=== PATIENT | male | born 1945 | race Caucasian/White ===

== ENCOUNTER 2022-03-22 15:36 | Inpatient (IN) | payer MEDICARE ==
--- NOTE | 2022-03-23 08:47 | Consultation ---
History of Present Illness - Reason for Consult Consult date: 03/23/22 Medical management - History of Present Illness Patient is a 76 YOM with hx of tobacco abuse, hyperlipidemia and memory loss who was brought to [facility] from outside facility for GeriPsychiatry. Per notes from OSH, he was brought in by a friend with worsening memory loss and hallucinations. His hallucinations made him become violent with inanimate objects. The patient reports "being the most caring person alive" and not "wa nting to hurt anybody, only to protect". He denies current hallucinations, SI, HI. He reports not having any medical conditions that he takes medications for currently. He is a current smoker but denies illicit drug and alcohol use. Review of systems were negative and the patient has no specific complaints at this time. Past History Past Medical History: COPD, hyperlipidemia Past Surgical History: hernia repair Social history: smoking Family history: no significant family history Medications and Allergies Allergies Allergy/AdvReac Type Severity Reaction Status Date / Time onion Allergy Unknown Unverified 03/22/22 15:49 Home Medications Medication Instructions Recorded Confirmed Last Taken Type Albuterol Sulfate [Proair 90 mcg IH Q4HR 03/23/22 03/23/22 Unknown History Digihaler] Aspirin EC [Halfprin EC] 81 mg PO QDAY 03/23/22 03/23/22 Unknown History Cholecalciferol Vit D3 [Vitamin D3 2,000 unit PO QDAY 03/23/22 03/23/22 Unknown History 1,000 UNIT TAB] Fluticasone [Flonase] 1 spray NS QDAY 03/23/22 03/23/22 Unknown History Multivit-Min/FA/Lycopen/Lutein 1 each PO DAILY 03/23/22 03/23/22 Unknown History [Abc Plus Tablet] Tiotropium [Spiriva] 18 mcg IH QDAY 03/23/22 03/23/22 Unknown History Varenicline Tartrate 0.5 mg PO DAILY 03/23/22 03/23/22 Unknown History Review of Systems Constitutional: no weight loss, no weight gain, no fever, no chills, no night sweats, no anorexia, no fatigue, no poor appetite Ears, nose, mouth and throat: no nasal congestion, no nasal discharge, no dy sphagia Cardiovascular: no chest pain, no orthopnea, no rapid/irregular heart beat, no edema, no lightheadedness, no high blood pressure Respiratory: no cough, no congestion, no wheezing Gastrointestinal: no abdominal pain, no nausea, no vomiting, no diarrhea Integumentary: deferred Neurological: memory loss, no syncope, no headaches, no change in mentation, no confusion Psychiatric: change in sleep habits, no anxiety, no insomnia, no suicidal id eation, no depression, no hopelessness, no irritability, no sadness/tearfullness Endocrine: no cold intolerance, no heat intolerance, no excessive thirst Exam - Physical Exam Narrative exam: GENERAL: Thin elderly male. Sitting in a chair, in no acute distress. HEENT: Normocephalic. Atraumatic. NECK: Supple. CHEST/LUNGS: CTAB on room air HEART/CARDIOVASCULAR: RRR. No murmur, rubs or gallops appreciated. ABDOMEN: +BS. NT/ND. SKIN: No rashes noted. NEURO: No focal motor deficit. Follows all commands. MUSCULOSKELETAL: No joint effusion EXTREMITIES: No cyanosis, clubbing or edema. PSYCH: Cooperative. Results - Labs CBC & Chem 7: 03/23/22 09:15 03/23/22 09:15 Assessment and Plan #Hyperlipidemia -lipid panel ordered, LDL: 136, TC: 206 -no BP measurement to accurately account for ASCVD risk -patient has HLD, a smoker and given age will start statin -will start atorvastatin 40mg qhs #History of COPD -stable, not in acute exacerbation -continue home inhalers -continue PRN albuterol for wheezing/SOB #tobacco dependence #tobacco cessation counseling -patient vague about how many cigarettes he smokes daily, he currently reports not smoking in a few days -nicotine patch offered, will continue chantix -smoking cessation counseling, supportive care, behavior change counseling, +15 minutes
[2022-03-23 09:44] LABS: Basophils # (Auto) 0.1 K/mm3 (0.0-0.1); Basophils % (Auto) 1.4 % (0.0-1.8); Eosinophils # (Auto) 0.3 K/mm3 (0.0-0.4); Eosinophils % (Auto) 5.5 % (0.0-4.3); Hematocrit 45.3 % (35.5-45.6); Hemoglobin 15.8 gm/dl (11.8-15.2); Lymphocytes # (Auto) 1.2 K/mm3 (1.2-5.4); Lymphocytes % (Auto) 21.5 % (13.4-35.0); Mean Corpuscular HGB Conc 35 % (32-34); Mean Corpuscular Volume 91 fl (84-94); Monocytes # (Auto) 0.4 K/mm3 (0.0-0.8); Monocytes % (Auto) 6.9 % (0.0-7.3); Red Blood Count 4.99 M/mm3 (3.65-5.03); Red Cell Distribution Width 13.2 % (13.2-15.2)
[2022-03-23 09:46] LABS: Platelet Count 94 K/mm3 (140-440)
[2022-03-23 10:06] LABS: Alanine Aminotransferase 19 units/L (7-56); Albumin 4.8 g/dL (3.9-5); BUN/Creatinine Ratio 19; Blood Urea Nitrogen 15 mg/dL (9-20); Calcium 9.5 mg/dL (8.4-10.2); Chol/HDL Ratio 3.88 %; HDL Cholesterol 53 mg/dL (40-59); Hemolysis Index 9; LDL Cholesterol,Direct 136 mg/dL (50-130)
--- NOTE | 2022-03-23 11:10 | History and Physical Report ---
GP History & Physical - History of Present Illness Date of admission: 03/22/22 Date of Examination: 03/23/22 Reason for Admission: Danger to self, Failure of Outpatient Treatment, Severe anxiety/depression History of Present Illness: HPI: Worsening memory and hallucinations. The patient was seen today. He is confused and could not be engaged in the evaluation. He asks me how did I get in his house. He is reaching for his linen and asks me if it was his dog. I ask him how was he feeling, he states again "how did you get in my house." PAST PSYCHIATRIC HISTORY: PAST MEDICAL HISTORY: None reported or document Family Psychiatric History: None reported or documented SOCIAL HISTORY REVIEW OF SYSTEMS MENTAL STATUS EXAMINATION Diagnoses: Dementia with behavioral disturbances Treatment Plan: Patient admitted for inpatient psychiatric evaluation, medication adjustment and close monitoring The patient's behavior, mood, sleep and appetite will be closely monitored. Patient enrolled in individual and group therapeutic sessions and encouraged to attend. Patient provided with a safe and structured environment. Patient's physical health needs will be addressed by the Hospitalist. Hospitalist Consulted Labs including CBC, CMP, Lipid profile and Hemoglobin A1C levels ordered for baseline reference Social Assessment will be completed and the Palliative Care Physician will work with patient and family to ensure a suitable and safe disposition Medication adjustment will be made as clinically indicated Restarted home meds Usual Wellness Sabianist/Preservation: - Start Trazodone 50 mg po QHS & 50 mg po QHS PRN between 10 PM & 2 AM for insomnia - Start Melatonin 5 mg po QHS to promote circadian rhythm The patient agreed on the treatment plan, understood the risk, benefit, alternative treatment, potential consequence of no treatment, and gave informed consent. Estimated days: 7 Legal Status: Voluntary Reaction to Hospitalization: Accepting Medications and Allergies Allergies Allergy/AdvReac Type Severity Reaction Status Date / Time onion Allergy Unknown Unverified 03/22/22 15:49 Home Medications Medication Instructions Recorded Confirmed Last Taken Type Albuterol Sulfate [Proair 90 mcg IH Q4HR 03/23/22 03/23/22 Unknown History Digihaler] Aspirin EC [Halfprin EC] 81 mg PO QDAY 03/23/22 03/23/22 Unknown History Cholecalciferol Vit D3 [Vitamin D3 2,000 unit PO QDAY 03/23/22 03/23/22 Unknown History 1,000 UNIT TAB] Fluticasone [Flonase] 1 spray NS QDAY 03/23/22 03/23/22 Unknown History Multivit-Min/FA/Lycopen/Lutein 1 each PO DAILY 03/23/22 03/23/22 Unknown History [Abc Plus Tablet] Tiotropium [Spiriva] 18 mcg IH QDAY 03/23/22 03/23/22 Unknown History Varenicline Tartrate 0.5 mg PO DAILY 03/23/22 03/23/22 Unknown History Results - Results Labs/Vitals: Laboratory Last Values WBC 5.7 K/mm3 (4.5-11.0) 03/23/22 09:15 RBC 4.99 M/mm3 (3.65-5.03) 03/23/22 09:15 Hgb 15.8 gm/dl (11.8-15.2) H 03/23/22 09:15 Hct 45.3 % (35.5-45.6) 03/23/22 09:15 MCV 91 fl (84-94) 03/23/22 09:15 MCH 32 pg (28-32) 03/23/22 09:15 MCHC 35 % (32-34) H 03/23/22 09:15 RDW 13.2 % (13.2-15.2) 03/23/22 09:15 Plt Count 94 K/mm3 (140-440) L 03/23/22 09:15 Lymph % (Auto) 21.5 % (13.4-35.0) 03/23/22 09:15 [place] % (Auto) 6.9 % (0.0-7.3) 03/23/22 09:15 Eos % (Auto) 5.5 % (0.0-4.3) H 03/23/22 09:15 Baso % (Auto) 1.4 % (0.0-1.8) 03/23/22 09:15 Lymph # (Auto) 1.2 K/mm3 (1.2-5.4) 03/23/22 09:15 [place] # (Auto) 0.4 K/mm3 (0.0-0.8) 03/23/22 09:15 Eos # (Auto) 0.3 K/mm3 (0.0-0.4) 03/23/22 09:15 Baso # (Auto) 0.1 K/mm3 (0.0-0.1) 03/23/22 09:15 Seg Neutrophils % 64.7 % (40.0-70.0) 03/23/22 09:15 Seg Neutrophils # 3.7 K/mm3 (1.8-7.7) 03/23/22 09:15 Sodium 139 mmol/L (137-145) 03/23/22 09:15 Potassium 3.7 mmol/L (3.6-5.0) 03/23/22 09:15 Chloride 100.6 mmol/L (98-107) 03/23/22 09:15 Carbon Dioxide 25 mmol/L (22-30) 03/23/22 09:15 Anion Gap 17 mmol/L 03/23/22 09:15 BUN 15 mg/dL (9-20) 03/23/22 09:15 Creatinine 0.8 mg/dL (0.8-1.3) 03/23/22 09:15 Estimated GFR > 60 ml/min 03/23/22 09:15 BUN/Creatinine Ratio 19 % 03/23/22 09:15 Glucose 112 mg/dL (75-100) H 03/23/22 09:15 Hemoglobin A1c 5.4 % (4-6) 03/23/22 09:15 Calcium 9.5 mg/dL (8.4-10.2) 03/23/22 09:15 Total Bilirubin 1.00 mg/dL (0.1-1.2) 03/23/22 09:15 AST 29 units/L (5-40) 03/23/22 09:15 ALT 19 units/L (7-56) 03/23/22 09:15 Alkaline Phosphatase 99 units/L (35-129) 03/23/22 09:15 Total Protein 6.6 g/dL (6.3-8.2) 03/23/22 09:15 Albumin 4.8 g/dL (3.9-5) 03/23/22 09:15 Albumin/Globulin Ratio 2.7 % 03/23/22 09:15 Triglycerides 92 mg/dL (2-149) 03/23/22 09:15 Cholesterol 206 mg/dL (50-199) H 03/23/22 09:15 LDL Cholesterol Direct 136 mg/dL (50-130) H 03/23/22 09:15 HDL Cholesterol 53 mg/dL (40-59) 03/23/22 09:15 Cholesterol/HDL Ratio 3.88 % 03/23/22 09:15 TSH 1.480 mlU/mL (0.270-4.200) 03/23/22 09:15 Physician Certification - Certification Statement Physician Certification Statement: This is an acknowledgement statement that SUSAN NINO is a 76 year old M who requires inpatient psychiatric admission for treatment which could reasonably be expected to improve the patient's condition for Estimated period of time patient will need to remain in the hospital: [ ] Plan for post-hospital care: [ ]
[2022-03-23] MEDS ORDERED: VARENICLINE TARTRATE 0.5 MG PO SCH (11:15)
[2022-03-23] MEDS ORDERED: LUTEIN PO SCH (11:15)
[2022-03-23] MEDS ORDERED: [UNRECOGNIZED DRUG - OTHER] PO SCH (11:15)
[2022-03-23] MEDS ORDERED: LYCOPEN PO SCH (11:15)
[2022-03-23] MEDS ORDERED: NON-FORMULARY EACH (Albuterol Sulfate [Proair Digihaler] 90 MCG Aer.Pw.Bas) IH SCH (11:15)
[2022-03-23] MEDS ORDERED: MULTIVIT MIN PO SCH (11:15)
[2022-03-23] MEDS ORDERED: ALBUTEROL 2.5 MG/3 ML NEBU IH PRN (12:00)
[2022-03-23] MEDS: CHOLECALCIFEROL (VIT D3) 1000 UNIT (25 mcg) TAB PO SCH (13:41)
[2022-03-23] MEDS: ASPIRIN EC 81 MG TAB PO SCH (13:41)
[2022-03-23] MEDS: TIOTROPIUM 18 MCG CAP INHALATION IH SCH (13:41)
[2022-03-23] MEDS: FLUTICASONE PROPIONATE NASAL SPRAY 16 GM NS SCH (13:41)
[2022-03-23] MEDS: MULTIVITAMINS,THER W-MINERALS TAB PO SCH (13:41)
[2022-03-23] MEDS: ALBUTEROL 2.5 MG/3 ML NEBU IH SCH ×2 (17:38→22:24)
[2022-03-24] MEDS: ALBUTEROL 2.5 MG/3 ML NEBU IH SCH ×7 (00:26→20:10)
--- NOTE | 2022-03-24 08:58 | Progress Note ---
Subjective Date of service: 03/24/22 Principal diagnosis: Delusional Disorder Subjective Comment: The patient was seen today. He is confused with poor insight. He says he slept up and down all night. He thinks he's at home in his bed. I asked the patient how he was feeling, he replies, "where am I? Am I at home?" He is reaching for things not there. And asks was his dog in the room. Will start low dose Olanzapine to treat delusions and hallucinations. REVIEW OF SYSTEMS MENTAL STATUS EXAMINATION Diagnoses: Dementia with behavioral disturbances Treatment Plan: Patient admitted for inpatient psychiatric evaluation, medication adjustment and close monitoring The patient's behavior, mood, sleep and appetite will be closely monitored. Patient enrolled in individual and group therapeutic sessions and encouraged to attend. Patient provided with a safe and structured environment. Patient's physical health needs will be addressed by the Hospitalist. Hospitalist Consulted Labs including CBC, CMP, Lipid profile and Hemoglobin A1C levels ordered for baseline reference Social Assessment will be completed and the Dobby Looms Pegger will work with patient and family to ensure a suitable and safe disposition Medication adjustment will be made as clinically indicated Olanzapine 2.5mg po daily Usual Wellness [facility]/Preservation: - Start Trazodone 50 mg po QHS & 50 mg po QHS PRN between 10 PM & 2 AM for insomnia - Start Melatonin 5 mg po QHS to promote circadian rhythm The patient agreed on the treatment plan, understood the risk, benefit, alt ernative treatment, potential consequence of no treatment, and gave informed consent. Estimated days: 7 Medications and Allergies Allergies Allergy/AdvReac Type Severity Reaction Status Date / Time onion Allergy Unknown Unverified 03/22/22 15:49 Home Medications Medication Instructions Recorded Confirmed Last Taken Type Albuterol Sulfate [Proair 90 mcg IH Q4HR 03/23/22 03/23/22 Unknown History Digihaler] Aspirin EC [Halfprin EC] 81 mg PO QDAY 03/23/22 03/23/22 Unknown History Cholecalciferol Vit D3 [Vitamin D3 2,000 unit PO QDAY 03/23/22 03/23/22 Unknown History 1,000 UNIT TAB] Fluticasone [Flonase] 1 spray NS QDAY 03/23/22 03/23/22 Unknown History Multivit-Min/FA/Lycopen/Lutein 1 each PO DAILY 03/23/22 03/23/22 Unknown History [Abc Plus Tablet] Tiotropium [Spiriva] 18 mcg IH QDAY 03/23/22 03/23/22 Unknown History Varenicline Tartrate 0.5 mg PO DAILY 03/23/22 03/23/22 Unknown History Active Meds: Active Medications Albuterol (Albuterol 2.5 Mg/3 Ml Nebu) 2.5 mg IH Q4HRT [facility] Last Admin: 03/23/22 22:24 Dose: Not Given Albuterol (Albuterol 2.5 Mg/3 Ml Nebu) 2.5 mg IH Q4HRT PRN PRN Reason: Shortness Of Breath Aspirin (Aspirin Ec 81 Mg Tab) 81 mg PO QDAY [facility] Last Admin: 03/23/22 13:41 Dose: Not Given Atorvastatin Calcium (Atorvastatin 40 Mg Tab) 40 mg PO QHS [facility] Last Admin: 03/23/22 23:23 Dose: Not Given Cholecalciferol (Cholecalciferol (Vit D3) 1000 Unit (25 Mcg) Tab) 2,000 unit PO QDAY [facility] Last Admin: 03/23/22 13:41 Dose: Not Given Fluticasone Propionate (Fluticasone Propionate Nasal [place] 16 Gm) 50 mcg NS QDAY [facility] Last Admin: 03/23/22 13:41 Dose: Not Given Miscellaneous Medication (Varenicline Tartrate [Varenicline Tartrate]) 0.5 mg PO DAILY [facility] Multivitamins/Minerals (Multivitamins,Ther W-Minerals Tab) 1 each PO QDAY [facility] Last Admin: 03/23/22 13:41 Dose: Not Given Tiotropium [place] (Tiotropium 18 Mcg Cap Inhalation) 1 puff IH QDAY [facility] Last Admin: 03/23/22 13:41 Dose: Not Given Results - Results Labs/Vitals: Laboratory Last Values WBC 5.7 K/mm3 (4.5-11.0) 03/23/22 09:15 RBC 4.99 M/mm3 (3.65-5.03) 03/23/22 09:15 Hgb 15.8 gm/dl (11.8-15.2) H 03/23/22 09:15 Hct 45.3 % (35.5-45.6) 03/23/22 09:15 MCV 91 fl (84-94) 03/23/22 09:15 MCH 32 pg (28-32) 03/23/22 09:15 MCHC 35 % (32-34) H 03/23/22 09:15 RDW 13.2 % (13.2-15.2) 03/23/22 09:15 Plt Count 94 K/mm3 (140-440) L 03/23/22 09:15 Lymph % (Auto) 21.5 % (13.4-35.0) 03/23/22 09:15 [place] % (Auto) 6.9 % (0.0-7.3) 03/23/22 09:15 Eos % (Auto) 5.5 % (0.0-4.3) H 03/23/22 09:15 Baso % (Auto) 1.4 % (0.0-1.8) 03/23/22 09:15 Lymph # (Auto) 1.2 K/mm3 (1.2-5.4) 03/23/22 09:15 [place] # (Auto) 0.4 K/mm3 (0.0-0.8) 03/23/22 09:15 Eos # (Auto) 0.3 K/mm3 (0.0-0.4) 03/23/22 09:15 Baso # (Auto) 0.1 K/mm3 (0.0-0.1) 03/23/22 09:15 Seg Neutrophils % 64.7 % (40.0-70.0) 03/23/22 09:15 Seg Neutrophils # 3.7 K/mm3 (1.8-7.7) 03/23/22 09:15 Sodium 139 mmol/L (137-145) 03/23/22 09:15 Potassium 3.7 mmol/L (3.6-5.0) 03/23/22 09:15 Chloride 100.6 mmol/L (98-107) 03/23/22 09:15 Carbon Dioxide 25 mmol/L (22-30) 03/23/22 09:15 Anion Gap 17 mmol/L 03/23/22 09:15 BUN 15 mg/dL (9-20) 03/23/22 09:15 Creatinine 0.8 mg/dL (0.8-1.3) 03/23/22 09:15 Estimated GFR > 60 ml/min 03/23/22 09:15 BUN/Creatinine Ratio 19 % 03/23/22 09:15 Glucose 112 mg/dL (75-100) H 03/23/22 09:15 Hemoglobin A1c 5.4 % (4-6) 03/23/22 09:15 Calcium 9.5 mg/dL (8.4-10.2) 03/23/22 09:15 Total Bilirubin 1.00 mg/dL (0.1-1.2) 03/23/22 09:15 AST 29 units/L (5-40) 03/23/22 09:15 ALT 19 units/L (7-56) 03/23/22 09:15 Alkaline Phosphatase 99 units/L (35-129) 03/23/22 09:15 Total Protein 6.6 g/dL (6.3-8.2) 03/23/22 09:15 Albumin 4.8 g/dL (3.9-5) 03/23/22 09:15 Albumin/Globulin Ratio 2.7 % 03/23/22 09:15 Triglycerides 92 mg/dL (2-149) 03/23/22 09:15 Cholesterol 206 mg/dL (50-199) H 03/23/22 09:15 LDL Cholesterol Direct 136 mg/dL (50-130) H 03/23/22 09:15 HDL Cholesterol 53 mg/dL (40-59) 03/23/22 09:15 Cholesterol/HDL Ratio 3.88 % 03/23/22 09:15 TSH 1.480 mlU/mL (0.270-4.200) 03/23/22 09:15 Last Vital Signs Temp 97.5 F L 03/23/22 22:00 Pulse 94 H 03/23/22 22:00 Resp 18 03/23/22 22:00 BP 128/78 03/23/22 22:00 Pulse Ox 99 03/23/22 22:00
--- NOTE | 2022-03-24 09:37 | Progress Note ---
Assessment and Plan Assessment and plan: #Hyperlipidemia -lipid panel ordered, LDL: 136, TC: 206 -lifetime ASCVD risk 25.5% -continue atorvastatin 40mg qhs #History of COPD -stable, not in acute exacerbation -continue home inhalers -continue PRN albuterol for wheezing/SOB #tobacco dependence #tobacco cessation counseling -nicotine patch offered patient declined, will continue chantix -smoking cessation counseling, supportive care, behavior change counseling, +15 minutes History Interval history: No acute events overnight. Patient reports sleeping well but is cold this morning. Patient not aware that he has a history of hyperlipidemia, we talked about starting a statin and he agreed. He has no complaints at this time. Hospitalist Physical - Physical exam Narrative exam: GENERAL: Thin elderly male. Sitting in a chair, in no acute distress. HEENT: Normocephalic. Atraumatic. CHEST/LUNGS: CTAB on room air HEART/CARDIOVASCULAR: RRR. No murmur, rubs or gallops appreciated. ABDOMEN: +BS. NT/ND. NEURO: No focal motor deficit. Follows all commands. EXTREMITIES: No cyanosis, clubbing or edema. PSYCH: Cooperative. - Constitutional Vitals: Temp Pulse Resp BP Pulse Ox 97.5 F L 94 H 18 128/78 99 03/23/22 22:00 03/23/22 22:00 03/23/22 22:00 03/23/22 22:00 03/23/22 22:00 Results - Labs CBC & Chem 7: 03/23/22 09:15 03/23/22 09:15 Labs: Laboratory Last Values WBC 5.7 K/mm3 (4.5-11.0) 03/23/22 09:15 RBC 4.99 M/mm3 (3.65-5.03) 03/23/22 09:15 Hgb 15.8 gm/dl (11.8-15.2) H 03/23/22 09:15 Hct 45.3 % (35.5-45.6) 03/23/22 09:15 MCV 91 fl (84-94) 03/23/22 09:15 MCH 32 pg (28-32) 03/23/22 09:15 MCHC 35 % (32-34) H 03/23/22 09:15 RDW 13.2 % (13.2-15.2) 03/23/22 09:15 Plt Count 94 K/mm3 (140-440) L 03/23/22 09:15 Lymph % (Auto) 21.5 % (13.4-35.0) 03/23/22 09:15 [place] % (Auto) 6.9 % (0.0-7.3) 03/23/22 09:15 Eos % (Auto) 5.5 % (0.0-4.3) H 03/23/22 09:15 Baso % (Auto) 1.4 % (0.0-1.8) 03/23/22 09:15 Lymph # (Auto) 1.2 K/mm3 (1.2-5.4) 03/23/22 09:15 [place] # (Auto) 0.4 K/mm3 (0.0-0.8) 03/23/22 09:15 Eos # (Auto) 0.3 K/mm3 (0.0-0.4) 03/23/22 09:15 Baso # (Auto) 0.1 K/mm3 (0.0-0.1) 03/23/22 09:15 Seg Neutrophils % 64.7 % (40.0-70.0) 03/23/22 09:15 Seg Neutrophils # 3.7 K/mm3 (1.8-7.7) 03/23/22 09:15 Sodium 139 mmol/L (137-145) 03/23/22 09:15 Potassium 3.7 mmol/L (3.6-5.0) 03/23/22 09:15 Chloride 100.6 mmol/L (98-107) 03/23/22 09:15 Carbon Dioxide 25 mmol/L (22-30) 03/23/22 09:15 Anion Gap 17 mmol/L 03/23/22 09:15 BUN 15 mg/dL (9-20) 03/23/22 09:15 Creatinine 0.8 mg/dL (0.8-1.3) 03/23/22 09:15 Estimated GFR > 60 ml/min 03/23/22 09:15 BUN/Creatinine Ratio 19 % 03/23/22 09:15 Glucose 112 mg/dL (75-100) H 03/23/22 09:15 Hemoglobin A1c 5.4 % (4-6) 03/23/22 09:15 Calcium 9.5 mg/dL (8.4-10.2) 03/23/22 09:15 Total Bilirubin 1.00 mg/dL (0.1-1.2) 03/23/22 09:15 AST 29 units/L (5-40) 03/23/22 09:15 ALT 19 units/L (7-56) 03/23/22 09:15 Alkaline Phosphatase 99 units/L (35-129) 03/23/22 09:15 Total Protein 6.6 g/dL (6.3-8.2) 03/23/22 09:15 Albumin 4.8 g/dL (3.9-5) 03/23/22 09:15 Albumin/Globulin Ratio 2.7 % 03/23/22 09:15 Triglycerides 92 mg/dL (2-149) 03/23/22 09:15 Cholesterol 206 mg/dL (50-199) H 03/23/22 09:15 LDL Cholesterol Direct 136 mg/dL (50-130) H 03/23/22 09:15 HDL Cholesterol 53 mg/dL (40-59) 03/23/22 09:15 Cholesterol/HDL Ratio 3.88 % 03/23/22 09:15 TSH 1.480 mlU/mL (0.270-4.200) 03/23/22 09:15 Kaufman/IV: Voiding Method Toilet Active Medications - Current Medications Current Medications: Generic Name Dose Route Start Last Admin Trade Name Freq PRN Reason Stop Dose Admin Albuterol 2.5 mg 03/23/22 16:00 03/24/22 04:27 Albuterol 2.5 Mg/3 Ml Nebu IH Not Given Q4HRT [facility] Albuterol 2.5 mg 03/23/22 12:00 Albuterol 2.5 Mg/3 Ml Nebu IH Q4HRT PRN Shortness Of Breath Aspirin 81 mg 03/23/22 12:00 03/23/22 13:41 Aspirin Ec 81 Mg Tab PO Not Given QDAY [facility] Atorvastatin Calcium 40 mg 03/23/22 22:00 03/23/22 23:23 Atorvastatin 40 Mg Tab PO Not Given QHS [facility] Cholecalciferol 2,000 unit 03/23/22 12:00 03/23/22 13:41 Cholecalciferol (Vit D3) 1000 Unit (25 Mcg) Tab PO Not Given QDAY [facility] Fluticasone Propionate 50 mcg 03/23/22 12:00 03/23/22 13:41 Fluticasone Propionate Nasal [place] 16 Gm NS Not Given QDAY [facility] Miscellaneous Medication 0.5 mg 03/23/22 11:15 Varenicline Tartrate [Varenicline Tartrate] PO DAILY [facility] Multivitamins/Minerals 1 each 03/23/22 12:00 03/23/22 13:41 Multivitamins,Ther W-Minerals Tab PO Not Given QDAY [facility] Olanzapine 2.5 mg 03/24/22 10:00 Olanzapine 2.5 Mg Tab PO QDAY [facility] Tiotropium [place] 1 puff 03/23/22 12:00 03/23/22 13:41 Tiotropium 18 Mcg Cap Inhalation IH Not Given QDAY [facility] Nutrition/Malnutrition Assess - Dietary Evaluation Nutrition/Malnutrition Findings: Nutrition Notes Start: 03/23/22 14:03 Freq: Status: Active Protocol: Document 03/23/22 14:03 FARIBA (Rec: 03/23/22 14:19 FARIBA [id number]) Nutrition Notes Need for Assessment generated from: Low BMI Initial or Follow up Assessment Current Diagnosis Hyperlipidemia Other Pertinent Diagnosis Dementia w/Behavioral Disturbance. Current Diet Regular Diet (since B 03/23). Labs/Tests 03/23: Glu 112, HbA1c 5.4. Pertinent Medications 03/23: Vit D3, Multivitamins, others nutritionally unremarkable. 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 Weight Status Underweight Subjective/Other Information RD consult for Low BMI assessment. No reports available of Pt's PO intake of meals at the time , and RN states that Pt refused his meals, according to ADL notes. Pt's Low BMI seems to correspond to a natural body composition, and not related to a sudden loss of body weight nor chronic malnutrition, since no signs of concern were mentioned in the Physical Assessment History or the Progress notes. Percent of energy/protein needs met: Prescribed Regular Diet provides for energy/protein needs (2,289 Kcal/89 g) during LOS. Burn Absent Trauma Absent GI Symptoms None Food Allergy Yes Skin Integrity/Comment Assessment WNL. 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 No Is Patient Ambulatory and/or Out of Bed Yes REE-([facility]-ambulatory/OOB) [ 1536.210 [id number]] Kcal/Kg value to use for calculation 33 Approximate Energy Requirements Using 1647 kcal/Kg Calculation Used for Recommendations Kcal/kg Additional Notes Protein: 1-1.2 g/Kg IBW; 65-78 g/day. Fluids: 1 ml/Kcal, or as per MD. Nutrition Intervention Change Diet Order: Continue Regular Diet. Revisit per MD consult or patient Sign Off request: Additional Comments Continue monitoring food tolerance, %PO intake of meals , and BM.
[2022-03-24] MEDS: CHOLECALCIFEROL (VIT D3) 1000 UNIT (25 mcg) TAB PO SCH (09:49)
[2022-03-24] MEDS: ASPIRIN EC 81 MG TAB PO SCH (09:49)
[2022-03-24] MEDS: MULTIVITAMINS,THER W-MINERALS TAB PO SCH (09:49)
[2022-03-24] MEDS: FLUTICASONE PROPIONATE NASAL SPRAY 16 GM NS SCH (11:24)
[2022-03-24] MEDS: TIOTROPIUM 18 MCG CAP INHALATION IH SCH (11:47)
--- NOTE | 2022-03-25 06:59 | Event Note ---
Date: 03/25/22 Patient is medically stable. Thank you for the consult. We will sign off at this time. Please call with any questions or concerns.
[2022-03-25] MEDS: TIOTROPIUM 18 MCG CAP INHALATION IH SCH ×2 (08:57→09:19)
[2022-03-25] MEDS: ALBUTEROL 2.5 MG/3 ML NEBU IH SCH ×2 (08:57→09:20)
--- NOTE | 2022-03-25 10:07 | Progress Note ---
Subjective Date of service: 03/25/22 Principal diagnosis: Delusional Disorder Subjective Comment: 03/25:The patient was seen ion the hallway. The patient seems confused but states he is doing ok. He states mood is ok and sleep was fair. Unable to assess SI/HI/AVHs. 03/24:The patient was seen today. He is confused with poor insight. He says he slept up and down all night. He thinks he's at home in his bed. I asked the patient how he was feeling, he replies, "where am I? Am I at home?" He is reaching for things not there. And asks was his dog in the room. Will start low dose Olanzapine to treat delusions and hallucinations. REVIEW OF SYSTEMS MENTAL STATUS EXAMINATION Diagnoses: Dementia with behavioral disturbances Treatment Plan: Patient admitted for inpatient psychiatric evaluation, medication adjustment and close monitoring The patient's behavior, mood, sleep and appetite will be closely monitored. Patient enrolled in individual and group therapeutic sessions and encouraged to attend. Patient provided with a safe and structured environment. Patient's physical health needs will be addressed by the Hospitalist. Hospitalist Consulted Labs including CBC, CMP, Lipid profile and Hemoglobin A1C levels ordered for baseline reference Social Assessment will be completed and the Shaft Mechanic will work with patient and family to ensure a suitable and safe disposition Medication adjustment will be made as clinically indicated Olanzapine 2.5mg po daily Usual Wellness Confucianist/Preservation: - Start Trazodone 50 mg po QHS & 50 mg po QHS PRN between 10 PM & 2 AM for insomnia - Start Melatonin 5 mg po QHS to promote circadian rhythm The patient agreed on the treatment plan, understood the risk, benefit, alte rnative treatment, potential consequence of no treatment, and gave informed consent. Estimated days: 7 Medications and Allergies Medications and Allergies Allergies Allergy/AdvReac Type Severity Reaction Status Date / Time onion Allergy Unknown Unverified 03/22/22 15:49 Home Medications Medication Instructions Recorded Confirmed Last Taken Type Albuterol Sulfate [Proair 90 mcg IH Q4HR 03/23/22 03/23/22 Unknown History Digihaler] Aspirin EC [Halfprin EC] 81 mg PO QDAY 03/23/22 03/23/22 Unknown History Cholecalciferol Vit D3 [Vitamin D3 2,000 unit PO QDAY 03/23/22 03/23/22 Unknown History 1,000 UNIT TAB] Fluticasone [Flonase] 1 spray NS QDAY 03/23/22 03/23/22 Unknown History Multivit-Min/FA/Lycopen/Lutein 1 each PO DAILY 03/23/22 03/23/22 Unknown History [Abc Plus Tablet] Tiotropium [Spiriva] 18 mcg IH QDAY 03/23/22 03/23/22 Unknown History Varenicline Tartrate 0.5 mg PO DAILY 03/23/22 03/23/22 Unknown History Active Meds: Active Medications Albuterol (Albuterol 2.5 Mg/3 Ml Nebu) 2.5 mg IH BIDRT [facility] Last Admin: 03/25/22 08:57 Dose: 2.5 mg Aspirin (Aspirin Ec 81 Mg Tab) 81 mg PO QDAY [facility] Last Admin: 03/24/22 09:49 Dose: 81 mg Atorvastatin Calcium (Atorvastatin 40 Mg Tab) 40 mg PO QHS [facility] Last Admin: 03/24/22 21:27 Dose: 40 mg Cholecalciferol (Cholecalciferol (Vit D3) 1000 Unit (25 Mcg) Tab) 2,000 unit PO QDAY [facility] Last Admin: 03/24/22 09:49 Dose: 2,000 unit Fluticasone Propionate (Fluticasone Propionate Nasal [place] 16 Gm) 50 mcg NS QDAY [facility] Last Admin: 03/24/22 11:24 Dose: Not Given Miscellaneous Medication (Varenicline Tartrate [Varenicline Tartrate]) 0.5 mg PO DAILY [facility] Multivitamins/Minerals (Multivitamins,Ther W-Minerals Tab) 1 each PO QDAY [facility] Last Admin: 03/24/22 09:49 Dose: 1 each Olanzapine (Olanzapine 2.5 Mg Tab) 2.5 mg PO QDAY [facility] Last Admin: 03/24/22 09:49 Dose: 2.5 mg Tiotropium [place] (Tiotropium 18 Mcg Cap Inhalation) 1 puff IH QDAY [facility] Last Admin: 03/25/22 08:57 Dose: 1 puff Results - Results Labs/Vitals: Laboratory Last Values WBC 5.7 K/mm3 (4.5-11.0) 03/23/22 09:15 RBC 4.99 M/mm3 (3.65-5.03) 03/23/22 09:15 Hgb 15.8 gm/dl (11.8-15.2) H 03/23/22 09:15 Hct 45.3 % (35.5-45.6) 03/23/22 09:15 MCV 91 fl (84-94) 03/23/22 09:15 MCH 32 pg (28-32) 03/23/22 09:15 MCHC 35 % (32-34) H 03/23/22 09:15 RDW 13.2 % (13.2-15.2) 03/23/22 09:15 Plt Count 94 K/mm3 (140-440) L 03/23/22 09:15 Lymph % (Auto) 21.5 % (13.4-35.0) 03/23/22 09:15 [place] % (Auto) 6.9 % (0.0-7.3) 03/23/22 09:15 Eos % (Auto) 5.5 % (0.0-4.3) H 03/23/22 09:15 Baso % (Auto) 1.4 % (0.0-1.8) 03/23/22 09:15 Lymph # (Auto) 1.2 K/mm3 (1.2-5.4) 03/23/22 09:15 [place] # (Auto) 0.4 K/mm3 (0.0-0.8) 03/23/22 09:15 Eos # (Auto) 0.3 K/mm3 (0.0-0.4) 03/23/22 09:15 Baso # (Auto) 0.1 K/mm3 (0.0-0.1) 03/23/22 09:15 Seg Neutrophils % 64.7 % (40.0-70.0) 03/23/22 09:15 Seg Neutrophils # 3.7 K/mm3 (1.8-7.7) 03/23/22 09:15 Sodium 139 mmol/L (137-145) 03/23/22 09:15 Potassium 3.7 mmol/L (3.6-5.0) 03/23/22 09:15 Chloride 100.6 mmol/L (98-107) 03/23/22 09:15 Carbon Dioxide 25 mmol/L (22-30) 03/23/22 09:15 Anion Gap 17 mmol/L 03/23/22 09:15 BUN 15 mg/dL (9-20) 03/23/22 09:15 Creatinine 0.8 mg/dL (0.8-1.3) 03/23/22 09:15 Estimated GFR > 60 ml/min 03/23/22 09:15 BUN/Creatinine Ratio 19 % 03/23/22 09:15 Glucose 112 mg/dL (75-100) H 03/23/22 09:15 Hemoglobin A1c 5.4 % (4-6) 03/23/22 09:15 Calcium 9.5 mg/dL (8.4-10.2) 03/23/22 09:15 Total Bilirubin 1.00 mg/dL (0.1-1.2) 03/23/22 09:15 AST 29 units/L (5-40) 03/23/22 09:15 ALT 19 units/L (7-56) 03/23/22 09:15 Alkaline Phosphatase 99 units/L (35-129) 03/23/22 09:15 Total Protein 6.6 g/dL (6.3-8.2) 03/23/22 09:15 Albumin 4.8 g/dL (3.9-5) 03/23/22 09:15 Albumin/Globulin Ratio 2.7 % 03/23/22 09:15 Triglycerides 92 mg/dL (2-149) 03/23/22 09:15 Cholesterol 206 mg/dL (50-199) H 03/23/22 09:15 LDL Cholesterol Direct 136 mg/dL (50-130) H 03/23/22 09:15 HDL Cholesterol 53 mg/dL (40-59) 03/23/22 09:15 Cholesterol/HDL Ratio 3.88 % 03/23/22 09:15 TSH 1.480 mlU/mL (0.270-4.200) 03/23/22 09:15 Last Vital Signs Temp 97.9 F 03/24/22 19:45 Pulse 88 03/25/22 09:48 Resp 18 03/25/22 09:48 BP 123/69 03/24/22 19:45 Pulse Ox 97 03/24/22 19:45
[2022-03-25] MEDS: FLUTICASONE PROPIONATE NASAL SPRAY 16 GM NS SCH ×2 (10:46→10:52)
[2022-03-25] MEDS: ASPIRIN EC 81 MG TAB PO SCH ×2 (10:46→10:54)
[2022-03-25] MEDS: MULTIVITAMINS,THER W-MINERALS TAB PO SCH ×2 (10:47→10:54)
[2022-03-25] MEDS: CHOLECALCIFEROL (VIT D3) 1000 UNIT (25 mcg) TAB PO SCH ×2 (10:47→10:54)
[2022-03-26] MEDS: ALBUTEROL 2.5 MG/3 ML NEBU IH SCH (09:21)
--- NOTE | 2022-03-26 09:48 | Progress Note ---
Subjective Date of service: 03/26/22 Principal diagnosis: Delusional Disorder Subjective Comment: 03/26:The patient was seen today. He continues to be circumstantial. He states sleep is good. he denies any current suicidal/homicidal ideation. Increase Zyprexa to 2.5mg po BID. 03/25:The patient was seen on the hallway. The patient seems confused but states he is doing ok. He states mood is ok and sleep was fair. Unable to assess SI/HI/AVHs. 03/24:The patient was seen today. He is confused with poor insight. He says he slept up and down all night. He thinks he's at home in his bed. I asked the patient how he was feeling, he replies, "where am I? Am I at home?" He is reaching for things not there. And asks was his dog in the room. Will start low dose Olanzapine to treat delusions and hallucinations. REVIEW OF SYSTEMS MENTAL STATUS EXAMINATION Diagnoses: Dementia with behavioral disturbances Treatment Plan: Patient admitted for inpatient psychiatric evaluation, medication adjustment and close monitoring The patient's behavior, mood, sleep and appetite will be closely monitored. Patient enrolled in individual and group therapeutic sessions and encouraged to attend. Patient provided with a safe and structured environment. Patient's physical health needs will be addressed by the Hospitalist. Hospitalist Consulted Labs including CBC, CMP, Lipid profile and Hemoglobin A1C levels ordered for baseline reference Social Assessment will be completed and the Hygiene Coordinator will work with patient and family to ensure a suitable and safe disposition Medication adjustment will be made as clinically indicated Start Olanzapine 2.5mg po BID Usual Wellness Worship/Preservation: - Start Trazodone 50 mg po QHS & 50 mg po QHS PRN between 10 PM & 2 AM for insomnia - Start Melatonin 5 mg po QHS to promote circadian rhythm The patient agreed on the treatment plan, understood the risk, benefit, alternative treatment, potential consequence of no treatment, and gave informed consent. Estimated days: 7 Medications and Allergies Medications and Allergies Allergies Allergy/AdvReac Type Severity Reaction Status Date / Time onion Allergy Unknown Unverified 03/22/22 15:49 Home Medications Medication Instructions Recorded Confirmed Last Taken Type Albuterol Sulfate [Proair 90 mcg IH Q4HR 03/23/22 03/23/22 Unknown History Digihaler] Aspirin EC [Halfprin EC] 81 mg PO QDAY 03/23/22 03/23/22 Unknown History Cholecalciferol Vit D3 [Vitamin D3 2,000 unit PO QDAY 03/23/22 03/23/22 Unknown History 1,000 UNIT TAB] Fluticasone [Flonase] 1 spray NS QDAY 03/23/22 03/23/22 Unknown History Multivit-Min/FA/Lycopen/Lutein 1 each PO DAILY 03/23/22 03/23/22 Unknown History [Abc Plus Tablet] Tiotropium [Spiriva] 18 mcg IH QDAY 03/23/22 03/23/22 Unknown History Varenicline Tartrate 0.5 mg PO DAILY 03/23/22 03/23/22 Unknown History Active Meds: Active Medications Albuterol (Albuterol 2.5 Mg/3 Ml Nebu) 2.5 mg IH BIDRT [facility] Last Admin: 03/26/22 09:21 Dose: 2.5 mg Aspirin (Aspirin Ec 81 Mg Tab) 81 mg PO QDAY [facility] Last Admin: 03/25/22 10:54 Dose: Not Given Atorvastatin Calcium (Atorvastatin 40 Mg Tab) 40 mg PO QHS [facility] Last Admin: 03/25/22 21:20 Dose: 40 mg Cholecalciferol (Cholecalciferol (Vit D3) 1000 Unit (25 Mcg) Tab) 2,000 unit PO QDAY [facility] Last Admin: 03/25/22 10:54 Dose: Not Given Fluticasone Propionate (Fluticasone Propionate Nasal [place] 16 Gm) 50 mcg NS QDAY [facility] Last Admin: 03/25/22 10:52 Dose: Not Given Miscellaneous Medication (Varenicline Tartrate [Varenicline Tartrate]) 0.5 mg PO DAILY [facility] Multivitamins/Minerals (Multivitamins,Ther W-Minerals Tab) 1 each PO QDAY [facility] Last Admin: 03/25/22 10:54 Dose: Not Given Olanzapine (Olanzapine 2.5 Mg Tab) 2.5 mg PO QDAY [facility] Last Admin: 03/25/22 10:54 Dose: Not Given Tiotropium [place] (Tiotropium 18 Mcg Cap Inhalation) 1 puff IH QDAY [facility] Last Admin: 03/25/22 09:19 Dose: 1 puff Results - Results Labs/Vitals: Laboratory Last Values WBC 5.7 K/mm3 (4.5-11.0) 03/23/22 09:15 RBC 4.99 M/mm3 (3.65-5.03) 03/23/22 09:15 Hgb 15.8 gm/dl (11.8-15.2) H 03/23/22 09:15 Hct 45.3 % (35.5-45.6) 03/23/22 09:15 MCV 91 fl (84-94) 03/23/22 09:15 MCH 32 pg (28-32) 03/23/22 09:15 MCHC 35 % (32-34) H 03/23/22 09:15 RDW 13.2 % (13.2-15.2) 03/23/22 09:15 Plt Count 94 K/mm3 (140-440) L 03/23/22 09:15 Lymph % (Auto) 21.5 % (13.4-35.0) 03/23/22 09:15 [place] % (Auto) 6.9 % (0.0-7.3) 03/23/22 09:15 Eos % (Auto) 5.5 % (0.0-4.3) H 03/23/22 09:15 Baso % (Auto) 1.4 % (0.0-1.8) 03/23/22 09:15 Lymph # (Auto) 1.2 K/mm3 (1.2-5.4) 03/23/22 09:15 [place] # (Auto) 0.4 K/mm3 (0.0-0.8) 03/23/22 09:15 Eos # (Auto) 0.3 K/mm3 (0.0-0.4) 03/23/22 09:15 Baso # (Auto) 0.1 K/mm3 (0.0-0.1) 03/23/22 09:15 Seg Neutrophils % 64.7 % (40.0-70.0) 03/23/22 09:15 Seg Neutrophils # 3.7 K/mm3 (1.8-7.7) 03/23/22 09:15 Sodium 139 mmol/L (137-145) 03/23/22 09:15 Potassium 3.7 mmol/L (3.6-5.0) 03/23/22 09:15 Chloride 100.6 mmol/L (98-107) 03/23/22 09:15 Carbon Dioxide 25 mmol/L (22-30) 03/23/22 09:15 Anion Gap 17 mmol/L 03/23/22 09:15 BUN 15 mg/dL (9-20) 03/23/22 09:15 Creatinine 0.8 mg/dL (0.8-1.3) 03/23/22 09:15 Estimated GFR > 60 ml/min 03/23/22 09:15 BUN/Creatinine Ratio 19 % 03/23/22 09:15 Glucose 112 mg/dL (75-100) H 03/23/22 09:15 Hemoglobin A1c 5.4 % (4-6) 03/23/22 09:15 Calcium 9.5 mg/dL (8.4-10.2) 03/23/22 09:15 Total Bilirubin 1.00 mg/dL (0.1-1.2) 03/23/22 09:15 AST 29 units/L (5-40) 03/23/22 09:15 ALT 19 units/L (7-56) 03/23/22 09:15 Alkaline Phosphatase 99 units/L (35-129) 03/23/22 09:15 Total Protein 6.6 g/dL (6.3-8.2) 03/23/22 09:15 Albumin 4.8 g/dL (3.9-5) 03/23/22 09:15 Albumin/Globulin Ratio 2.7 % 03/23/22 09:15 Triglycerides 92 mg/dL (2-149) 03/23/22 09:15 Cholesterol 206 mg/dL (50-199) H 03/23/22 09:15 LDL Cholesterol Direct 136 mg/dL (50-130) H 03/23/22 09:15 HDL Cholesterol 53 mg/dL (40-59) 03/23/22 09:15 Cholesterol/HDL Ratio 3.88 % 03/23/22 09:15 TSH 1.480 mlU/mL (0.270-4.200) 03/23/22 09:15 Last Vital Signs Temp 98.8 F 03/25/22 20:01 Pulse 72 03/25/22 20:01 Resp 17 03/25/22 20:01 BP 131/68 03/25/22 20:01 Pulse Ox 97 03/25/22 20:01
[2022-03-26] MEDS: FLUTICASONE PROPIONATE NASAL SPRAY 16 GM NS SCH ×2 (11:09→11:21)
[2022-03-26] MEDS: ASPIRIN EC 81 MG TAB PO SCH ×2 (11:10→11:21)
[2022-03-26] MEDS: CHOLECALCIFEROL (VIT D3) 1000 UNIT (25 mcg) TAB PO SCH (11:10)
[2022-03-26] MEDS: MULTIVITAMINS,THER W-MINERALS TAB PO SCH ×2 (11:10→11:20)
[2022-03-27] MEDS: MULTIVITAMINS,THER W-MINERALS TAB PO SCH (09:35)
[2022-03-27] MEDS: ASPIRIN EC 81 MG TAB PO SCH (09:35)
[2022-03-27] MEDS: CHOLECALCIFEROL (VIT D3) 1000 UNIT (25 mcg) TAB PO SCH (09:35)
[2022-03-27] MEDS: FLUTICASONE PROPIONATE NASAL SPRAY 16 GM NS SCH (09:35)
--- NOTE | 2022-03-27 10:00 | Progress Note ---
Subjective Date of service: 03/27/22 Principal diagnosis: Delusional Disorder Subjective Comment: 03/27:The patient was seen today. The patient is confused and easily irritated. Will start Depakote [place] 125mg po BID 03/26:The patient was seen today. He continues to be circumstantial. He states sleep is good. he denies any current suicidal/homicidal ideation. Increase Zyprexa to 2.5mg po BID. 03/25:The patient was seen on the hallway. The patient seems confused but states he is doing ok. He states mood is ok and sleep was fair. Unable to assess SI/HI/AVHs. 03/24:The patient was seen today. He is confused with poor insight. He says he slept up and down all night. He thinks he's at home in his bed. I asked the patient how he was feeling, he replies, "where am I? Am I at home?" He is reaching for things not there. And asks was his dog in the room. Will start low dose Olanzapine to treat delusions and hallucinations. REVIEW OF SYSTEMS MENTAL STATUS EXAMINATION Diagnoses: Dementia with behavioral disturbances Treatment Plan: Patient admitted for inpatient psychiatric evaluation, medication adjustment an d close monitoring The patient's behavior, mood, sleep and appetite will be closely monitored. Patient enrolled in individual and group therapeutic sessions and encouraged to attend. Patient provided with a safe and structured environment. Patient's physical health needs will be addressed by the Hospitalist. Hospitalist Consulted Labs including CBC, CMP, Lipid profile and Hemoglobin A1C levels ordered for baseline reference Social Assessment will be completed and the Quarry Supervisor Dimension Stone will work with patient and family to ensure a suitable and safe disposition Medication adjustment will be made as clinically indicated Start Olanzapine 2.5mg po BID Usual Wellness Jain/Preservation: - Start Trazodone 50 mg po QHS & 50 mg po QHS PRN between 10 PM & 2 AM for insomnia - Start Melatonin 5 mg po QHS to promote circadian rhythm The patient agreed on the treatment plan, understood the risk, benefit, alternative treatment, potential consequence of no treatment, and gave informed consent. Estimated days: 7 Medications and Allergies Medications and Allergies Allergies Allergy/AdvReac Type Severity Reaction Status Date / Time onion Allergy Unknown Unverified 03/22/22 15:49 Home Medications Medication Instructions Recorded Confirmed Last Taken Type Albuterol Sulfate [Proair 90 mcg IH Q4HR 03/23/22 03/23/22 Unknown History Digihaler] Aspirin EC [Halfprin EC] 81 mg PO QDAY 03/23/22 03/23/22 Unknown History Cholecalciferol Vit D3 [Vitamin D3 2,000 unit PO QDAY 03/23/22 03/23/22 Unknown History 1,000 UNIT TAB] Fluticasone [Flonase] 1 spray NS QDAY 03/23/22 03/23/22 Unknown History Multivit-Min/FA/Lycopen/Lutein 1 each PO DAILY 03/23/22 03/23/22 Unknown History [Abc Plus Tablet] Tiotropium [Spiriva] 18 mcg IH QDAY 03/23/22 03/23/22 Unknown History Varenicline Tartrate 0.5 mg PO DAILY 03/23/22 03/23/22 Unknown History Active Meds: Active Medications Albuterol (Albuterol 2.5 Mg/3 Ml Nebu) 2.5 mg IH BIDRT [facility] Last Admin: 03/26/22 09:21 Dose: 2.5 mg Aspirin (Aspirin Ec 81 Mg Tab) 81 mg PO QDAY [facility] Last Admin: 03/27/22 09:35 Dose: Not Given Atorvastatin Calcium (Atorvastatin 40 Mg Tab) 40 mg PO QHS [facility] Last Admin: 03/26/22 21:48 Dose: Not Given Cholecalciferol (Cholecalciferol (Vit D3) 1000 Unit (25 Mcg) Tab) 2,000 unit PO QDAY [facility] Last Admin: 03/27/22 09:35 Dose: Not Given Fluticasone Propionate (Fluticasone Propionate Nasal [place] 16 Gm) 50 mcg NS QDAY [facility] Last Admin: 03/27/22 09:35 Dose: Not Given Miscellaneous Medication (Varenicline Tartrate [Varenicline Tartrate]) 0.5 mg PO DAILY [facility] Multivitamins/Minerals (Multivitamins,Ther W-Minerals Tab) 1 each PO QDAY [facility] Last Admin: 03/27/22 09:35 Dose: Not Given Olanzapine (Olanzapine 2.5 Mg Tab) 2.5 mg PO BID [facility] Last Admin: 03/27/22 09:15 Dose: 2.5 mg Tiotropium [place] (Tiotropium 18 Mcg Cap Inhalation) 1 puff IH QDAY [facility] Last Admin: 03/25/22 09:19 Dose: 1 puff Results - Results Labs/Vitals: Laboratory Last Values WBC 5.7 K/mm3 (4.5-11.0) 03/23/22 09:15 RBC 4.99 M/mm3 (3.65-5.03) 03/23/22 09:15 Hgb 15.8 gm/dl (11.8-15.2) H 03/23/22 09:15 Hct 45.3 % (35.5-45.6) 03/23/22 09:15 MCV 91 fl (84-94) 03/23/22 09:15 MCH 32 pg (28-32) 03/23/22 09:15 MCHC 35 % (32-34) H 03/23/22 09:15 RDW 13.2 % (13.2-15.2) 03/23/22 09:15 Plt Count 94 K/mm3 (140-440) L 03/23/22 09:15 Lymph % (Auto) 21.5 % (13.4-35.0) 03/23/22 09:15 [place] % (Auto) 6.9 % (0.0-7.3) 03/23/22 09:15 Eos % (Auto) 5.5 % (0.0-4.3) H 03/23/22 09:15 Baso % (Auto) 1.4 % (0.0-1.8) 03/23/22 09:15 Lymph # (Auto) 1.2 K/mm3 (1.2-5.4) 03/23/22 09:15 [place] # (Auto) 0.4 K/mm3 (0.0-0.8) 03/23/22 09:15 Eos # (Auto) 0.3 K/mm3 (0.0-0.4) 03/23/22 09:15 Baso # (Auto) 0.1 K/mm3 (0.0-0.1) 03/23/22 09:15 Seg Neutrophils % 64.7 % (40.0-70.0) 03/23/22 09:15 Seg Neutrophils # 3.7 K/mm3 (1.8-7.7) 03/23/22 09:15 Sodium 139 mmol/L (137-145) 03/23/22 09:15 Potassium 3.7 mmol/L (3.6-5.0) 03/23/22 09:15 Chloride 100.6 mmol/L (98-107) 03/23/22 09:15 Carbon Dioxide 25 mmol/L (22-30) 03/23/22 09:15 Anion Gap 17 mmol/L 03/23/22 09:15 BUN 15 mg/dL (9-20) 03/23/22 09:15 Creatinine 0.8 mg/dL (0.8-1.3) 03/23/22 09:15 Estimated GFR > 60 ml/min 03/23/22 09:15 BUN/Creatinine Ratio 19 % 03/23/22 09:15 Glucose 112 mg/dL (75-100) H 03/23/22 09:15 Hemoglobin A1c 5.4 % (4-6) 03/23/22 09:15 Calcium 9.5 mg/dL (8.4-10.2) 03/23/22 09:15 Total Bilirubin 1.00 mg/dL (0.1-1.2) 03/23/22 09:15 AST 29 units/L (5-40) 03/23/22 09:15 ALT 19 units/L (7-56) 03/23/22 09:15 Alkaline Phosphatase 99 units/L (35-129) 03/23/22 09:15 Total Protein 6.6 g/dL (6.3-8.2) 03/23/22 09:15 Albumin 4.8 g/dL (3.9-5) 03/23/22 09:15 Albumin/Globulin Ratio 2.7 % 03/23/22 09:15 Triglycerides 92 mg/dL (2-149) 03/23/22 09:15 Cholesterol 206 mg/dL (50-199) H 03/23/22 09:15 LDL Cholesterol Direct 136 mg/dL (50-130) H 03/23/22 09:15 HDL Cholesterol 53 mg/dL (40-59) 03/23/22 09:15 Cholesterol/HDL Ratio 3.88 % 03/23/22 09:15 TSH 1.480 mlU/mL (0.270-4.200) 03/23/22 09:15 Last Vital Signs Temp 97.8 F 03/26/22 22:22 Pulse 60 03/26/22 22:22 Resp 16 03/26/22 22:22 BP 149/67 05/28/22 22:22 Pulse Ox 100 03/26/22 22:22
[2022-03-27] MEDS ORDERED: ZIPRASIDONE MESYLATE 20 MG VIAL IM PRN (12:00)
[2022-03-27] MEDS: ALBUTEROL 2.5 MG/3 ML NEBU IH SCH ×3 (20:59→21:05)
[2022-03-27] MEDS: TIOTROPIUM 18 MCG CAP INHALATION IH SCH (21:00)
[2022-03-27] MEDS: DIVALPROEX DR 125 MG TAB PO SCH (21:05)
[2022-03-28] MEDS: ALBUTEROL 2.5 MG/3 ML NEBU IH SCH ×2 (08:40→23:33)
--- NOTE | 2022-03-28 09:14 | Progress Note ---
Subjective Date of service: 03/28/22 Principal diagnosis: Delusional Disorder Subjective Comment: 03/28: The patient was seen today. He is alert and oriented x2. He continues to be easily irritable and confused " I'm looking for Gayla and my dog." Will increase Zyprexa to 5mg po QHS. 03/27:The patient was seen today. The patient is confused and easily irritated. Will start Depakote DR. 125mg po BID 03/26:The patient was seen today. He continues to be circumstantial. He states sleep is good. He denies any current suicidal/homicidal ideation. Increase Zyprexa to 2.5mg po BID. 03/25:The patient was seen on the hallway. The patient seems confused but states he is doing ok. He states mood is ok and sleep was fair. Unable to assess SI/HI/AVHs. 03/24:The patient was seen today. He is confused with poor insight. He says he slept up and down all night. He thinks he's at home in his bed. I asked the patient how he was feeling, he replies, "where am I? Am I at home?" He is reaching for things not there. And asks was his dog in the room. Will start low dose Olanzapine to treat delusions and hallucinations. REVIEW OF SYSTEMS MENTAL STATUS EXAMINATION Diagnoses: Dementia with behavioral disturbances Treatment Plan: Patient admitted for inpatient psychiatric evaluation, medication adjustment and close monitoring The patient's behavior, mood, sleep and appetite will be closely monitored. Patient enrolled in individual and group therapeutic sessions and encouraged to attend. Patient provided with a safe and structured environment. Patient's physical health needs will be addressed by the Hospitalist. Hospitalist Consulted Labs including CBC, CMP, Lipid profile and Hemoglobin A1C levels ordered for baseline reference Social Assessment will be completed and the Pain Medicine Physician will work with patient and family to ensure a suitable and safe disposition Medication adjustment will be made as clinically indicated Continue Olanzapine 2.5mg po daily Continue Depakote 125mg po BID Start Zyprexa 5mg po QHS Usual Wellness Latter-Day/Preservation: - Start Trazodone 50 mg po QHS & 50 mg po QHS PRN between 10 PM & 2 AM for insomnia - Start Melatonin 5 mg po QHS to promote circadian rhythm The patient agreed on the treatment plan, understood the risk, benefit, alternative treatment, potential consequence of no treatment, and gave informed consent. Estimated days: 7 Medications and Allergies Medications and Allergies Allergies Allergy/AdvReac Type Severity Reaction Status Date / Time onion Allergy Unknown Verified 03/27/22 10:21 Home Medications Medication Instructions Recorded Confirmed Last Taken Type Albuterol Sulfate [Proair 90 mcg IH Q4HR 03/23/22 03/23/22 Unknown History Digihaler] Aspirin EC [Halfprin EC] 81 mg PO QDAY 03/23/22 03/23/22 Unknown History Cholecalciferol Vit D3 [Vitamin D3 2,000 unit PO QDAY 03/23/22 03/23/22 Unknown History 1,000 UNIT TAB] Fluticasone [Flonase] 1 spray NS QDAY 03/23/22 03/23/22 Unknown History Multivit-Min/FA/Lycopen/Lutein 1 each PO DAILY 03/23/22 03/23/22 Unknown History [Abc Plus Tablet] Tiotropium [Spiriva] 18 mcg IH QDAY 03/23/22 03/23/22 Unknown History Varenicline Tartrate 0.5 mg PO DAILY 03/23/22 03/23/22 Unknown History Active Meds: Active Medications Albuterol (Albuterol 2.5 Mg/3 Ml Nebu) 2.5 mg IH BIDRT [facility] Last Admin: 03/27/22 21:05 Dose: 2.5 mg Aspirin (Aspirin Ec 81 Mg Tab) 81 mg PO QDAY [facility] Last Admin: 03/27/22 09:35 Dose: Not Given Atorvastatin Calcium (Atorvastatin 40 Mg Tab) 40 mg PO QHS [facility] Last Admin: 03/27/22 21:02 Dose: 40 mg Cholecalciferol (Cholecalciferol (Vit D3) 1000 Unit (25 Mcg) Tab) 2,000 unit PO QDAY [facility] Last Admin: 03/27/22 09:35 Dose: Not Given Divalproex Sodium (Divalproex Dr 125 Mg Tab) 125 mg PO BID [facility] Last Admin: 03/27/22 21:05 Dose: 125 mg Fluticasone Propionate (Fluticasone Propionate Nasal [place] 16 Gm) 50 mcg NS QDAY [facility] Last Admin: 03/27/22 09:35 Dose: Not Given Miscellaneous Medication (Varenicline Tartrate [Varenicline Tartrate]) 0.5 mg PO DAILY [facility] Multivitamins/Minerals (Multivitamins,Ther W-Minerals Tab) 1 each PO QDAY [facility] Last Admin: 03/27/22 09:35 Dose: Not Given Olanzapine (Olanzapine 2.5 Mg Tab) 2.5 mg PO BID [facility] Last Admin: 03/27/22 21:02 Dose: 2.5 mg Tiotropium [place] (Tiotropium 18 Mcg Cap Inhalation) 1 puff IH QDAY [facility] Last Admin: 03/27/22 21:00 Dose: Not Given Ziprasidone (Ziprasidone Mesylate 20 Mg Vial) 10 mg IM Q4H PRN PRN Reason: Agitation Results - Results Labs/Vitals: Laboratory Last Values WBC 5.7 K/mm3 (4.5-11.0) 03/23/22 09:15 RBC 4.99 M/mm3 (3.65-5.03) 03/23/22 09:15 Hgb 15.8 gm/dl (11.8-15.2) H 03/23/22 09:15 Hct 45.3 % (35.5-45.6) 03/23/22 09:15 MCV 91 fl (84-94) 03/23/22 09:15 MCH 32 pg (28-32) 03/23/22 09:15 MCHC 35 % (32-34) H 03/23/22 09:15 RDW 13.2 % (13.2-15.2) 03/23/22 09:15 Plt Count 94 K/mm3 (140-440) L 03/23/22 09:15 Lymph % (Auto) 21.5 % (13.4-35.0) 03/23/22 09:15 [place] % (Auto) 6.9 % (0.0-7.3) 03/23/22 09:15 Eos % (Auto) 5.5 % (0.0-4.3) H 03/23/22 09:15 Baso % (Auto) 1.4 % (0.0-1.8) 03/23/22 09:15 Lymph # (Auto) 1.2 K/mm3 (1.2-5.4) 03/23/22 09:15 [place] # (Auto) 0.4 K/mm3 (0.0-0.8) 03/23/22 09:15 Eos # (Auto) 0.3 K/mm3 (0.0-0.4) 03/23/22 09:15 Baso # (Auto) 0.1 K/mm3 (0.0-0.1) 03/23/22 09:15 Seg Neutrophils % 64.7 % (40.0-70.0) 03/23/22 09:15 Seg Neutrophils # 3.7 K/mm3 (1.8-7.7) 03/23/22 09:15 Sodium 139 mmol/L (137-145) 03/23/22 09:15 Potassium 3.7 mmol/L (3.6-5.0) 03/23/22 09:15 Chloride 100.6 mmol/L (98-107) 03/23/22 09:15 Carbon Dioxide 25 mmol/L (22-30) 03/23/22 09:15 Anion Gap 17 mmol/L 03/23/22 09:15 BUN 15 mg/dL (9-20) 03/23/22 09:15 Creatinine 0.8 mg/dL (0.8-1.3) 03/23/22 09:15 Estimated GFR > 60 ml/min 03/23/22 09:15 BUN/Creatinine Ratio 19 % 03/23/22 09:15 Glucose 112 mg/dL (75-100) H 03/23/22 09:15 Hemoglobin A1c 5.4 % (4-6) 03/23/22 09:15 Calcium 9.5 mg/dL (8.4-10.2) 03/23/22 09:15 Total Bilirubin 1.00 mg/dL (0.1-1.2) 03/23/22 09:15 AST 29 units/L (5-40) 03/23/22 09:15 ALT 19 units/L (7-56) 03/23/22 09:15 Alkaline Phosphatase 99 units/L (35-129) 03/23/22 09:15 Total Protein 6.6 g/dL (6.3-8.2) 03/23/22 09:15 Albumin 4.8 g/dL (3.9-5) 03/23/22 09:15 Albumin/Globulin Ratio 2.7 % 03/23/22 09:15 Triglycerides 92 mg/dL (2-149) 03/23/22 09:15 Cholesterol 206 mg/dL (50-199) H 03/23/22 09:15 LDL Cholesterol Direct 136 mg/dL (50-130) H 03/23/22 09:15 HDL Cholesterol 53 mg/dL (40-59) 03/23/22 09:15 Cholesterol/HDL Ratio 3.88 % 03/23/22 09:15 TSH 1.480 mlU/mL (0.270-4.200) 03/23/22 09:15 Last Vital Signs Temp 98.3 F 03/27/22 18:35 Pulse 74 03/27/22 21:06 Resp 18 03/27/22 21:06 BP 134/74 03/27/22 18:35 Pulse Ox 98 03/27/22 18:35
[2022-03-28] MEDS: FLUTICASONE PROPIONATE NASAL SPRAY 16 GM NS SCH (09:46)
[2022-03-28] MEDS: DIVALPROEX DR 125 MG TAB PO SCH ×2 (09:47→21:10)
[2022-03-28] MEDS: MULTIVITAMINS,THER W-MINERALS TAB PO SCH (09:47)
[2022-03-28] MEDS: ASPIRIN EC 81 MG TAB PO SCH (09:47)
[2022-03-28] MEDS: CHOLECALCIFEROL (VIT D3) 1000 UNIT (25 mcg) TAB PO SCH (09:48)
[2022-03-28] MEDS: HALOPERIDOL LACTATE 5 MG/1 ML INJ IM SCH ×2 (10:02→22:51)
[2022-03-28] MEDS: TIOTROPIUM 18 MCG CAP INHALATION IH SCH (10:05)
[2022-03-28] MEDS: HALOPERIDOL 2 MG TAB PO SCH ×2 (12:03→21:09)
[2022-03-29] MEDS: ALBUTEROL 2.5 MG/3 ML NEBU IH SCH ×2 (08:35→20:48)
[2022-03-29] MEDS: TIOTROPIUM 18 MCG CAP INHALATION IH SCH (08:35)
[2022-03-29] MEDS: FLUTICASONE PROPIONATE NASAL SPRAY 16 GM NS SCH (09:25)
[2022-03-29] MEDS: DIVALPROEX DR 125 MG TAB PO SCH ×2 (09:25→22:15)
[2022-03-29] MEDS: ASPIRIN EC 81 MG TAB PO SCH (09:26)
[2022-03-29] MEDS: HALOPERIDOL 2 MG TAB PO SCH (09:26)
[2022-03-29] MEDS: CHOLECALCIFEROL (VIT D3) 1000 UNIT (25 mcg) TAB PO SCH (09:27)
[2022-03-29] MEDS: MULTIVITAMINS,THER W-MINERALS TAB PO SCH (09:27)
[2022-03-29] MEDS: HALOPERIDOL LACTATE 5 MG/1 ML INJ IM SCH ×2 (09:31→22:15)
--- NOTE | 2022-03-29 10:02 | Progress Note ---
Subjective Date of service: 03/29/22 Principal diagnosis: Delusional Disorder Subjective Comment: 03/29:The patient was seen today. He present with flat affect and talking to himself " I'm waiting on my dog." Increase Haldol to 5mg po or IM BID 03/28: The patient was seen today. He is alert and oriented x2. He continues to be easily irritable and confused " I'm looking for Gayla and my dog." Will increase Zyprexa to 5mg po QHS. 03/27:The patient was seen today. The patient is confused and easily irritated. Will start Depakote DR. 125mg po BID 03/26:The patient was seen today. He continues to be circumstantial. He states sleep is good. He denies any current suicidal/homicidal ideation. Increase Zyprexa to 2.5mg po BID. 03/25:The patient was seen on the hallway. The patient seems confused but states he is doing ok. He states mood is ok and sleep was fair. Unable to assess SI/HI/AVHs. 03/24:The patient was seen today. He is confused with poor insight. He says he slept up and down all night. He thinks he's at home in his bed. I asked the patient how he was feeling, he replies, "where am I? Am I at home?" He is reaching for things not there. And asks was his dog in the room. Will start low dose Olanzapine to treat delusions and hallucinations. REVIEW OF SYSTEMS MENTAL STATUS EXAMINATION Diagnoses: Dementia with behavioral disturbances Treatment Plan: Patient admitted for inpatient psychiatric evaluation, medication adjustment and close monitoring The patient's behavior, mood, sleep and appetite will be closely monitored. Patient enrolled in individual and group therapeutic sessions and encouraged to attend. Patient provided with a safe and structured environment. Patient's physical health needs will be addressed by the Hospitalist. Hospitalist Consulted Labs including CBC, CMP, Lipid profile and Hemoglobin A1C levels ordered for baseline reference Social Assessment will be completed and the Conveyor Maintenance Mechanic will work with patient and family to ensure a suitable and safe disposition Medication adjustment will be made as clinically indicated Continue Olanzapine 2.5mg po daily Continue Depakote 125mg po BID Start Zyprexa 5mg po QHS Usual Wellness Baptism/Preservation: - Start Trazodone 50 mg po QHS & 50 mg po QHS PRN between 10 PM & 2 AM for insomnia - Start Melatonin 5 mg po QHS to promote circadian rhythm The patient agreed on the treatment plan, understood the risk, benefit, alternative treatment, potential consequence of no treatment, and gave informed consent. Estimated days: 7 Medications and Allergies Medications and Allergies Allergies Allergy/AdvReac Type Severity Reaction Status Date / Time onion Allergy Unknown Verified 03/27/22 10:21 Home Medications Medication Instructions Recorded Confirmed Last Taken Type Albuterol Sulfate [Proair 90 mcg IH Q4HR 03/23/22 03/23/22 Unknown History Digihaler] Aspirin EC [Halfprin EC] 81 mg PO QDAY 03/23/22 03/23/22 Unknown History Cholecalciferol Vit D3 [Vitamin D3 2,000 unit PO QDAY 03/23/22 03/23/22 Unknown History 1,000 UNIT TAB] Fluticasone [Flonase] 1 spray NS QDAY 03/23/22 03/23/22 Unknown History Multivit-Min/FA/Lycopen/Lutein 1 each PO DAILY 03/23/22 03/23/22 Unknown History [Abc Plus Tablet] Tiotropium [Spiriva] 18 mcg IH QDAY 03/23/22 03/23/22 Unknown History Varenicline Tartrate 0.5 mg PO DAILY 03/23/22 03/23/22 Unknown History Active Meds: Active Medications Albuterol (Albuterol 2.5 Mg/3 Ml Nebu) 2.5 mg IH BIDRT [facility] Last Admin: 03/29/22 08:35 Dose: 2.5 mg Aspirin (Aspirin Ec 81 Mg Tab) 81 mg PO QDAY [facility] Last Admin: 03/29/22 09:26 Dose: 81 mg Atorvastatin Calcium (Atorvastatin 40 Mg Tab) 40 mg PO QHS [facility] Last Admin: 03/28/22 21:09 Dose: 40 mg Cholecalciferol (Cholecalciferol (Vit D3) 1000 Unit (25 Mcg) Tab) 2,000 unit PO QDAY [facility] Last Admin: 03/29/22 09:27 Dose: 2,000 unit Divalproex Sodium (Divalproex Dr 125 Mg Tab) 125 mg PO BID [facility] Last Admin: 03/29/22 09:25 Dose: 125 mg Fluticasone Propionate (Fluticasone Propionate Nasal [place] 16 Gm) 50 mcg NS QDAY [facility] Last Admin: 03/29/22 09:25 Dose: 50 mcg Haloperidol (Haloperidol 5 Mg Tab) 5 mg PO BID [facility] Haloperidol Lactate (Haloperidol Lactate 5 Mg/1 Ml Inj) 5 mg IM BID [facility] Miscellaneous Medication (Varenicline Tartrate [Varenicline Tartrate]) 0.5 mg PO DAILY [facility] Multivitamins/Minerals (Multivitamins,Ther W-Minerals Tab) 1 each PO QDAY [facility] Last Admin: 03/29/22 09:27 Dose: 1 each Tiotropium [place] (Tiotropium 18 Mcg Cap Inhalation) 1 puff IH QDAY [facility] Last Admin: 03/28/22 10:05 Dose: Not Given Ziprasidone (Ziprasidone Mesylate 20 Mg Vial) 10 mg IM Q4H PRN PRN Reason: Agitation Results - Results Labs/Vitals: Laboratory Last Values WBC 5.7 K/mm3 (4.5-11.0) 03/23/22 09:15 RBC 4.99 M/mm3 (3.65-5.03) 03/23/22 09:15 Hgb 15.8 gm/dl (11.8-15.2) H 03/23/22 09:15 Hct 45.3 % (35.5-45.6) 03/23/22 09:15 MCV 91 fl (84-94) 03/23/22 09:15 MCH 32 pg (28-32) 03/23/22 09:15 MCHC 35 % (32-34) H 03/23/22 09:15 RDW 13.2 % (13.2-15.2) 03/23/22 09:15 Plt Count 94 K/mm3 (140-440) L 03/23/22 09:15 Lymph % (Auto) 21.5 % (13.4-35.0) 03/23/22 09:15 [place] % (Auto) 6.9 % (0.0-7.3) 03/23/22 09:15 Eos % (Auto) 5.5 % (0.0-4.3) H 03/23/22 09:15 Baso % (Auto) 1.4 % (0.0-1.8) 03/23/22 09:15 Lymph # (Auto) 1.2 K/mm3 (1.2-5.4) 03/23/22 09:15 [place] # (Auto) 0.4 K/mm3 (0.0-0.8) 03/23/22 09:15 Eos # (Auto) 0.3 K/mm3 (0.0-0.4) 03/23/22 09:15 Baso # (Auto) 0.1 K/mm3 (0.0-0.1) 03/23/22 09:15 Seg Neutrophils % 64.7 % (40.0-70.0) 03/23/22 09:15 Seg Neutrophils # 3.7 K/mm3 (1.8-7.7) 03/23/22 09:15 Sodium 139 mmol/L (137-145) 03/23/22 09:15 Potassium 3.7 mmol/L (3.6-5.0) 03/23/22 09:15 Chloride 100.6 mmol/L (98-107) 03/23/22 09:15 Carbon Dioxide 25 mmol/L (22-30) 03/23/22 09:15 Anion Gap 17 mmol/L 03/23/22 09:15 BUN 15 mg/dL (9-20) 03/23/22 09:15 Creatinine 0.8 mg/dL (0.8-1.3) 03/23/22 09:15 Estimated GFR > 60 ml/min 03/23/22 09:15 BUN/Creatinine Ratio 19 % 03/23/22 09:15 Glucose 112 mg/dL (75-100) H 03/23/22 09:15 Hemoglobin A1c 5.4 % (4-6) 03/23/22 09:15 Calcium 9.5 mg/dL (8.4-10.2) 03/23/22 09:15 Total Bilirubin 1.00 mg/dL (0.1-1.2) 03/23/22 09:15 AST 29 units/L (5-40) 03/23/22 09:15 ALT 19 units/L (7-56) 03/23/22 09:15 Alkaline Phosphatase 99 units/L (35-129) 03/23/22 09:15 Total Protein 6.6 g/dL (6.3-8.2) 03/23/22 09:15 Albumin 4.8 g/dL (3.9-5) 03/23/22 09:15 Albumin/Globulin Ratio 2.7 % 03/23/22 09:15 Triglycerides 92 mg/dL (2-149) 03/23/22 09:15 Cholesterol 206 mg/dL (50-199) H 03/23/22 09:15 LDL Cholesterol Direct 136 mg/dL (50-130) H 03/23/22 09:15 HDL Cholesterol 53 mg/dL (40-59) 03/23/22 09:15 Cholesterol/HDL Ratio 3.88 % 03/23/22 09:15 TSH 1.480 mlU/mL (0.270-4.200) 03/23/22 09:15 Last Vital Signs Temp 98.2 F 03/29/22 07:16 Pulse 80 03/29/22 08:36 Resp 17 03/29/22 08:36 BP 130/70 03/29/22 07:16 Pulse Ox 95 03/29/22 07:16
[2022-03-29] MEDS: HALOPERIDOL 5 MG TAB PO SCH (22:15)
[2022-03-30] MEDS: MULTIVITAMINS,THER W-MINERALS TAB PO SCH (09:23)
[2022-03-30] MEDS: CHOLECALCIFEROL (VIT D3) 1000 UNIT (25 mcg) TAB PO SCH (09:23)
[2022-03-30] MEDS: DIVALPROEX DR 125 MG TAB PO SCH ×2 (09:23→21:37)
[2022-03-30] MEDS: HALOPERIDOL 5 MG TAB PO SCH ×2 (09:23→21:38)
[2022-03-30] MEDS: ALBUTEROL 2.5 MG/3 ML NEBU IH SCH ×2 (10:10→20:36)
[2022-03-30] MEDS: TIOTROPIUM 18 MCG CAP INHALATION IH SCH (10:10)
--- NOTE | 2022-03-30 10:17 | Progress Note ---
Subjective Date of service: 03/30/22 Principal diagnosis: Delusional Disorder Subjective Comment: 03/30: The patient was seen today. he continues to be confused and paranoid. Per nurse, " the patient became more anxious and restless as the evening progressed. He presents as paranoid. Patient was encouraged to take a shower and he threatened to tear it down if staff did not turn it off. He denies si/hi/ah/vh but patient is actively delusional. His appetite is fair and he was medication compliant.Overnight the patient was awake often. He came out of his room and was confused. He was trying to go into his peers rooms because he thought their rooms were his even though his name is on the door. He was encouraged to try to rest and would become irritable by that encouragement. He slept a total of 5 hours." Start Remeron 7.5mg po QHS. 03/29:The patient was seen today. He present with flat affect and talking to himself " I'm waiting on my dog." Increase Haldol to 5mg po or IM BID 03/28: The patient was seen today. He is alert and oriented x2. He continues to be easily irritable and confused " I'm looking for Gayla and my dog." Will increase Zyprexa to 5mg po QHS. 03/27:The patient was seen today. The patient is confused and easily irritated. Will start Depakote DR. 125mg po BID 03/26:The patient was seen today. He continues to be circumstantial. He states sleep is good. He denies any current suicidal/homicidal ideation. Increase Zyprexa to 2.5mg po BID. 03/25:The patient was seen on the hallway. The patient seems confused but states he is doing ok. He states mood is ok and sleep was fair. Unable to assess SI/HI/AVHs. 03/24:The patient was seen today. He is confused with poor insight. He says he slept up and down all night. He thinks he's at home in his bed. I asked the patient how he was feeling, he replies, "where am I? Am I at home?" He is reaching for things not there. And asks was his dog in the room. Will start low dose Olanzapine to treat delusions and hallucinations. REVIEW OF SYSTEMS MENTAL STATUS EXAMINATION Diagnoses: Dementia with behavioral disturbances Treatment Plan: Patient admitted for inpatient psychiatric evaluation, medication adjustment and close monitoring The patient's behavior, mood, sleep and appetite will be closely monitored. Patient enrolled in individual and group therapeutic sessions and encouraged to attend. Patient provided with a safe and structured environment. Patient's physical health needs will be addressed by the Hospitalist. Hospitalist Consulted Labs including CBC, CMP, Lipid profile and Hemoglobin A1C levels ordered for baseline reference Social Assessment will be completed and the Junior High School Teacher will work with patient and family to ensure a suitable and safe disposition Medication adjustment will be made as clinically indicated Continue Olanzapine 2.5mg po daily Continue Depakote 125mg po BID Continue Zyprexa 5mg po QHS Usual Wellness Catholic/Preservation: - Start Trazodone 50 mg po QHS & 50 mg po QHS PRN between 10 PM & 2 AM for insomnia - Start Melatonin 5 mg po QHS to promote circadian rhythm The patient agreed on the treatment plan, understood the risk, benefit, alternative treatment, potential consequence of no treatment, and gave informed consent. Estimated days: 7 Medications and Allergies Medications and Allergies Allergies Allergy/AdvReac Type Severity Reaction Status Date / Time onion Allergy Unknown Verified 03/27/22 10:21 Home Medications Medication Instructions Recorded Confirmed Last Taken Type Albuterol Sulfate [Proair 90 mcg IH Q4HR 03/23/22 03/23/22 Unknown History Digihaler] Aspirin EC [Halfprin EC] 81 mg PO QDAY 03/23/22 03/23/22 Unknown History Cholecalciferol Vit D3 [Vitamin D3 2,000 unit PO QDAY 03/23/22 03/23/22 Unknown History 1,000 UNIT TAB] Fluticasone [Flonase] 1 spray NS QDAY 03/23/22 03/23/22 Unknown History Multivit-Min/FA/Lycopen/Lutein 1 each PO DAILY 03/23/22 03/23/22 Unknown History [Abc Plus Tablet] Tiotropium [Spiriva] 18 mcg IH QDAY 03/23/22 03/23/22 Unknown History Varenicline Tartrate 0.5 mg PO DAILY 03/23/22 03/23/22 Unknown History Active Meds: Active Medications Albuterol (Albuterol 2.5 Mg/3 Ml Nebu) 2.5 mg IH BIDRT [facility] Last Admin: 03/29/22 20:48 Dose: 2.5 mg Aspirin (Aspirin Ec 81 Mg Tab) 81 mg PO QDAY [facility] Last Admin: 03/29/22 09:26 Dose: 81 mg Atorvastatin Calcium (Atorvastatin 40 Mg Tab) 40 mg PO QHS [facility] Last Admin: 03/29/22 22:15 Dose: 40 mg Cholecalciferol (Cholecalciferol (Vit D3) 1000 Unit (25 Mcg) Tab) 2,000 unit PO QDAY [facility] Last Admin: 03/30/22 09:23 Dose: 2,000 unit Divalproex Sodium (Divalproex Dr 125 Mg Tab) 125 mg PO BID [facility] Last Admin: 03/30/22 09:23 Dose: 125 mg Fluticasone Propionate (Fluticasone Propionate Nasal [place] 16 Gm) 50 mcg NS QDAY [facility] Last Admin: 03/29/22 09:25 Dose: 50 mcg Haloperidol (Haloperidol 5 Mg Tab) 5 mg PO BID [facility] Last Admin: 03/30/22 09:23 Dose: 5 mg Haloperidol Lactate (Haloperidol Lactate 5 Mg/1 Ml Inj) 5 mg IM BID [facility] Last Admin: 03/29/22 22:15 Dose: Not Given Miscellaneous Medication (Varenicline Tartrate [Varenicline Tartrate]) 0.5 mg PO DAILY [facility] Multivitamins/Minerals (Multivitamins,Ther W-Minerals Tab) 1 each PO QDAY [facility] Last Admin: 03/30/22 09:23 Dose: 1 each Tiotropium [place] (Tiotropium 18 Mcg Cap Inhalation) 1 puff IH QDAY [facility] Last Admin: 03/29/22 08:35 Dose: Not Given Ziprasidone (Ziprasidone Mesylate 20 Mg Vial) 10 mg IM Q4H PRN PRN Reason: Agitation Results - Results Labs/Vitals: Laboratory Last Values WBC 5.7 K/mm3 (4.5-11.0) 03/23/22 09:15 RBC 4.99 M/mm3 (3.65-5.03) 03/23/22 09:15 Hgb 15.8 gm/dl (11.8-15.2) H 03/23/22 09:15 Hct 45.3 % (35.5-45.6) 03/23/22 09:15 MCV 91 fl (84-94) 03/23/22 09:15 MCH 32 pg (28-32) 03/23/22 09:15 MCHC 35 % (32-34) H 03/23/22 09:15 RDW 13.2 % (13.2-15.2) 03/23/22 09:15 Plt Count 94 K/mm3 (140-440) L 03/23/22 09:15 Lymph % (Auto) 21.5 % (13.4-35.0) 03/23/22 09:15 [place] % (Auto) 6.9 % (0.0-7.3) 03/23/22 09:15 Eos % (Auto) 5.5 % (0.0-4.3) H 03/23/22 09:15 Baso % (Auto) 1.4 % (0.0-1.8) 03/23/22 09:15 Lymph # (Auto) 1.2 K/mm3 (1.2-5.4) 03/23/22 09:15 [place] # (Auto) 0.4 K/mm3 (0.0-0.8) 03/23/22 09:15 Eos # (Auto) 0.3 K/mm3 (0.0-0.4) 03/23/22 09:15 Baso # (Auto) 0.1 K/mm3 (0.0-0.1) 03/23/22 09:15 Seg Neutrophils % 64.7 % (40.0-70.0) 03/23/22 09:15 Seg Neutrophils # 3.7 K/mm3 (1.8-7.7) 03/23/22 09:15 Sodium 139 mmol/L (137-145) 03/23/22 09:15 Potassium 3.7 mmol/L (3.6-5.0) 03/23/22 09:15 Chloride 100.6 mmol/L (98-107) 03/23/22 09:15 Carbon Dioxide 25 mmol/L (22-30) 03/23/22 09:15 Anion Gap 17 mmol/L 03/23/22 09:15 BUN 15 mg/dL (9-20) 03/23/22 09:15 Creatinine 0.8 mg/dL (0.8-1.3) 03/23/22 09:15 Estimated GFR > 60 ml/min 03/23/22 09:15 BUN/Creatinine Ratio 19 % 03/23/22 09:15 Glucose 112 mg/dL (75-100) H 03/23/22 09:15 Hemoglobin A1c 5.4 % (4-6) 03/23/22 09:15 Calcium 9.5 mg/dL (8.4-10.2) 03/23/22 09:15 Total Bilirubin 1.00 mg/dL (0.1-1.2) 03/23/22 09:15 AST 29 units/L (5-40) 03/23/22 09:15 ALT 19 units/L (7-56) 03/23/22 09:15 Alkaline Phosphatase 99 units/L (35-129) 03/23/22 09:15 Total Protein 6.6 g/dL (6.3-8.2) 03/23/22 09:15 Albumin 4.8 g/dL (3.9-5) 03/23/22 09:15 Albumin/Globulin Ratio 2.7 % 03/23/22 09:15 Triglycerides 92 mg/dL (2-149) 03/23/22 09:15 Cholesterol 206 mg/dL (50-199) H 03/23/22 09:15 LDL Cholesterol Direct 136 mg/dL (50-130) H 03/23/22 09:15 HDL Cholesterol 53 mg/dL (40-59) 03/23/22 09:15 Cholesterol/HDL Ratio 3.88 % 03/23/22 09:15 TSH 1.480 mlU/mL (0.270-4.200) 03/23/22 09:15 Last Vital Signs Temp 98.5 F 03/29/22 21:15 Pulse 97 H 03/29/22 21:15 Resp 18 03/29/22 21:15 BP 126/60 03/29/22 21:15 Pulse Ox 98 03/29/22 21:15
[2022-03-30] MEDS: FLUTICASONE PROPIONATE NASAL SPRAY 16 GM NS SCH (11:30)
[2022-03-30] MEDS: HALOPERIDOL LACTATE 5 MG/1 ML INJ IM SCH ×2 (11:31→21:39)
[2022-03-30] MEDS: ASPIRIN EC 81 MG TAB PO SCH (11:32)
--- NOTE | 2022-03-30 13:25 | Progress Note ---
Assessment and Plan Assessment and plan: #Hyperlipidemia -lipid panel ordered, LDL: 136, TC: 206 -lifetime ASCVD risk 25.5% -continue atorvastatin 40mg qhs #History of COPD -stable, not in acute exacerbation -continue home inhalers -continue PRN albuterol for wheezing/SOB #tobacco dependence #tobacco cessation counseling -nicotine patch offered patient declined, will continue chantix -smoking cessation counseling, supportive care, behavior change counseling, +15 minutes #Advanced care planning -Disease education conducted, care plan discussed, diagnoses discussed, prognosis discussed, and patient acknowledges understanding with care plan -Time: +30 min Disposition Plan: Continue medical management Total Time Spent with Patient (Minutes): 30 minutes History Interval history: No acute events overnight. Hospitalist Physical - Constitutional Vitals: Temp Pulse Resp BP Pulse Ox 98.5 F 97 H 18 126/60 98 03/29/22 21:15 03/29/22 21:15 03/29/22 21:15 03/29/22 21:15 03/29/22 21:15 General appearance: Present: no acute distress - EENT Eyes: Present: PERRL, EOM intact ENT: hearing intact, clear oral mucosa - Neck Neck: Present: supple, normal ROM - Respiratory Respiratory effort: normal Respiratory: bilateral: CTA - Cardiovascular Rhythm: regular Heart Sounds: Present: S1 & S2 - Extremities Extremities: no ischemia, pulses intact, No edema, normal temperature, normal color Peripheral Pulses: within normal limits - Abdominal General gastrointestinal: soft, non-tender, non-distended, normal bowel sounds - Integumentary Integumentary: Present: clear, warm, dry - Psychiatric Psychiatric: other (Confused and paranoid) - Neurologic Neurologic: CNII-XII intact - Allied Health Allied health notes reviewed: nursing Results - Labs CBC & Chem 7: 03/23/22 09:15 03/23/22 09:15 Labs: Laboratory Last Values WBC 5.7 K/mm3 (4.5-11.0) 03/23/22 09:15 RBC 4.99 M/mm3 (3.65-5.03) 03/23/22 09:15 Hgb 15.8 gm/dl (11.8-15.2) H 03/23/22 09:15 Hct 45.3 % (35.5-45.6) 03/23/22 09:15 MCV 91 fl (84-94) 03/23/22 09:15 MCH 32 pg (28-32) 03/23/22 09:15 MCHC 35 % (32-34) H 03/23/22 09:15 RDW 13.2 % (13.2-15.2) 03/23/22 09:15 Plt Count 94 K/mm3 (140-440) L 03/23/22 09:15 Lymph % (Auto) 21.5 % (13.4-35.0) 03/23/22 09:15 [place] % (Auto) 6.9 % (0.0-7.3) 03/23/22 09:15 Eos % (Auto) 5.5 % (0.0-4.3) H 03/23/22 09:15 Baso % (Auto) 1.4 % (0.0-1.8) 03/23/22 09:15 Lymph # (Auto) 1.2 K/mm3 (1.2-5.4) 03/23/22 09:15 [place] # (Auto) 0.4 K/mm3 (0.0-0.8) 03/23/22 09:15 Eos # (Auto) 0.3 K/mm3 (0.0-0.4) 03/23/22 09:15 Baso # (Auto) 0.1 K/mm3 (0.0-0.1) 03/23/22 09:15 Seg Neutrophils % 64.7 % (40.0-70.0) 03/23/22 09:15 Seg Neutrophils # 3.7 K/mm3 (1.8-7.7) 03/23/22 09:15 Sodium 139 mmol/L (137-145) 03/23/22 09:15 Potassium 3.7 mmol/L (3.6-5.0) 03/23/22 09:15 Chloride 100.6 mmol/L (98-107) 03/23/22 09:15 Carbon Dioxide 25 mmol/L (22-30) 03/23/22 09:15 Anion Gap 17 mmol/L 03/23/22 09:15 BUN 15 mg/dL (9-20) 03/23/22 09:15 Creatinine 0.8 mg/dL (0.8-1.3) 03/23/22 09:15 Estimated GFR > 60 ml/min 03/23/22 09:15 BUN/Creatinine Ratio 19 % 03/23/22 09:15 Glucose 112 mg/dL (75-100) H 03/23/22 09:15 Hemoglobin A1c 5.4 % (4-6) 03/23/22 09:15 Calcium 9.5 mg/dL (8.4-10.2) 03/23/22 09:15 Total Bilirubin 1.00 mg/dL (0.1-1.2) 03/23/22 09:15 AST 29 units/L (5-40) 03/23/22 09:15 ALT 19 units/L (7-56) 03/23/22 09:15 Alkaline Phosphatase 99 units/L (35-129) 03/23/22 09:15 Total Protein 6.6 g/dL (6.3-8.2) 03/23/22 09:15 Albumin 4.8 g/dL (3.9-5) 03/23/22 09:15 Albumin/Globulin Ratio 2.7 % 03/23/22 09:15 Triglycerides 92 mg/dL (2-149) 03/23/22 09:15 Cholesterol 206 mg/dL (50-199) H 03/23/22 09:15 LDL Cholesterol Direct 136 mg/dL (50-130) H 03/23/22 09:15 HDL Cholesterol 53 mg/dL (40-59) 03/23/22 09:15 Cholesterol/HDL Ratio 3.88 % 03/23/22 09:15 TSH 1.480 mlU/mL (0.270-4.200) 03/23/22 09:15 [place]/IV: Voiding Method Toilet Active Medications - Current Medications Current Medications: Generic Name Dose Route Start Last Admin Trade Name Freq PRN Reason Stop Dose Admin Albuterol 2.5 mg 03/24/22 20:00 03/29/22 20:48 Albuterol 2.5 Mg/3 Ml Nebu IH 2.5 mg BIDRT GALINA Administration Aspirin 81 mg 03/23/22 12:00 03/30/22 11:32 Aspirin Ec 81 Mg Tab PO 81 mg QDAY GALINA Administration Atorvastatin Calcium 40 mg 03/23/22 22:00 03/29/22 22:15 Atorvastatin 40 Mg Tab PO 40 mg QHS GALINA Administration Cholecalciferol 2,000 unit 03/23/22 12:00 03/30/22 09:23 Cholecalciferol (Vit D3) 1000 Unit (25 Mcg) Tab PO 2,000 unit QDAY GALINA Administration Divalproex Sodium 125 mg 03/27/22 22:00 03/30/22 09:[address] 125 Mg Tab PO 125 mg BID GALINA Administration Fluticasone Propionate 50 mcg 03/23/22 12:00 03/30/22 11:30 Fluticasone Propionate Nasal [place] 16 Gm NS Not Given QDAY GALINA Haloperidol 5 mg 03/29/22 22:00 03/30/22 09:23 Haloperidol 5 Mg Tab PO 5 mg BID GALINA Administration Haloperidol Lactate 5 mg 03/29/22 22:00 03/30/22 11:31 Haloperidol Lactate 5 Mg/1 Ml Inj IM Not Given BID GALINA Mirtazapine 7.5 mg 03/30/22 22:00 Mirtazapine 15 Mg Tab PO QHS GALINA Miscellaneous Medication 0.5 mg 03/23/22 11:15 Varenicline Tartrate [Varenicline Tartrate] PO DAILY [facility] Multivitamins/Minerals 1 each 03/23/22 12:00 03/30/22 09:23 Multivitamins,Ther W-Minerals Tab PO 1 each QDAY GALINA Administration Tiotropium [place] 1 puff 03/23/22 12:00 03/29/22 08:35 Tiotropium 18 Mcg Cap Inhalation IH Not Given QDAY GALINA Ziprasidone 10 mg 03/27/22 12:00 Ziprasidone Mesylate 20 Mg Vial IM Q4H PRN Agitation Nutrition/Malnutrition Assess - Dietary Evaluation Nutrition/Malnutrition Findings: Nutrition Notes Start: 03/23/22 14:03 Freq: Status: Active Protocol: Document 03/23/22 14:03 FARIBA (Rec: 03/23/22 14:19 FARIBA [id number]) Nutrition Notes Need for Assessment generated from: Low BMI Initial or Follow up Assessment Current Diagnosis Hyperlipidemia Other Pertinent Diagnosis Dementia w/Behavioral Disturbance. Current Diet Regular Diet (since B 03/23). Labs/Tests 03/23: Glu 112, HbA1c 5.4. Pertinent Medications 03/23: Vit D3, Multivitamins, others nutritionally unremarkable. 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 Weight Status Underweight Subjective/Other Information RD consult for Low BMI assessment. No reports available of Pt's PO intake of meals at the time , and RN states that Pt refused his meals, according to ADL notes. Pt's Low BMI seems to correspond to a natural body composition, and not related to a sudden loss of body weight nor chronic malnutrition, since no signs of concern were mentioned in the Physical Assessment History or the Progress notes. Percent of energy/protein needs met: Prescribed Regular Diet provides for energy/protein needs (2,289 Kcal/89 g) during LOS. Burn Absent Trauma Absent GI Symptoms None Food Allergy Yes Skin Integrity/Comment Assessment WNL. Minimum of two criteria No Fluid Accumulation N/A Reduced Salesperson Men'S Hats Strength N/A (non-severe) Protein-Calorie Malnutrition N\A #1 Nutrition Diagnosis No nutrition diagnosis at this time Is patient on ventilator? No Is Patient Ambulatory and/or Out of Bed Yes REE-([place]-ambulatory/OOB) [ 1536.210 [id number]] Kcal/Kg value to use for calculation 33 Approximate Energy Requirements Using 1647 kcal/Kg Calculation Used for Recommendations Kcal/kg Additional Notes Protein: 1-1.2 g/Kg IBW; 65-78 g/day. Fluids: 1 ml/Kcal, or as per MD. Nutrition Intervention Change Diet Order: Continue Regular Diet. Revisit per MD consult or patient Sign Off request: Additional Comments Continue monitoring food tolerance, %PO intake of meals , and BM.
[2022-03-30] MEDS: MIRTAZAPINE 15 MG TAB PO SCH (21:37)
[2022-03-31] MEDS: ALBUTEROL 2.5 MG/3 ML NEBU IH SCH ×2 (07:46→20:53)
[2022-03-31] MEDS: TIOTROPIUM 18 MCG CAP INHALATION IH SCH ×2 (09:05→10:00)
--- NOTE | 2022-03-31 09:22 | Progress Note ---
Subjective Date of service: 03/31/22 Principal diagnosis: Delusional Disorder Subjective Comment: 03/31:The patient was seen today. The patient continues to be confused and tangential. Unable to assess SI/HI/AVHs. No changes made today. 03/30: The patient was seen today. He continues to be confused and paranoid. Per nurse, " the patient became more anxious and restless as the evening progressed. He presents as paranoid. Patient was encouraged to take a shower and he threatened to tear it down if staff did not turn it off. He denies si/hi/ah/vh but patient is actively delusional. His appetite is fair and he was medication compliant.Overnight the patient was awake often. He came out of his room and was confused. He was trying to go into his peers rooms because he thought their rooms were his even though his name is on the door. He was encouraged to try to rest and would become irritable by that encouragement. He slept a total of 5 hours." Start Remeron 7.5mg po QHS. 03/29:The patient was seen today. He present with flat affect and talking to himself " I'm waiting on my dog." Increase Haldol to 5mg po or IM BID 03/28: The patient was seen today. He is alert and oriented x2. He continues to be easily irritable and confused " I'm looking for Gayla and my dog." Will increase Zyprexa to 5mg po QHS. 03/27:The patient was seen today. The patient is confused and easily irritated. Will start Depakote DR. 125mg po BID 03/26:The patient was seen today. He continues to be circumstantial. He states sleep is good. He denies any current suicidal/homicidal ideation. Increase Zyprexa to 2.5mg po BID. 03/25:The patient was seen on the hallway. The patient seems confused but states he is doing ok. He states mood is ok and sleep was fair. Unable to assess SI/HI/AVHs. 03/24:The patient was seen today. He is confused with poor insight. He says he slept up and down all night. He thinks he's at home in his bed. I asked the patient how he was feeling, he replies, "where am I? Am I at home?" He is reaching for things not there. And asks was his dog in the room. Will start low dose Olanzapine to treat delusions and hallucinations. REVIEW OF SYSTEMS MENTAL STATUS EXAMINATION Diagnoses: Dementia with behavioral disturbances Treatment Plan: Patient admitted for inpatient psychiatric evaluation, medication adjustment and close monitoring The patient's behavior, mood, sleep and appetite will be closely monitored. Patient enrolled in individual and group therapeutic sessions and encouraged to attend. Patient provided with a safe and structured environment. Patient's physical health needs will be addressed by the Hospitalist. Hospitalist Consulted Labs including CBC, CMP, Lipid profile and Hemoglobin A1C levels ordered for baseline reference Social Assessment will be completed and the Safety Attendant will work with patient and family to ensure a suitable and safe disposition Medication adjustment will be made as clinically indicated Continue Depakote 125mg po BID Usual Wellness Temple/Preservation: - Start Trazodone 50 mg po QHS & 50 mg po QHS PRN between 10 PM & 2 AM for insomnia - Start Melatonin 5 mg po QHS to promote circadian rhythm The patient agreed on the treatment plan, understood the risk, benefit, alternative treatment, potential consequence of no treatment, and gave informed consent. Estimated days: 7 Medications and Allergies Medications and Allergies Allergies Allergy/AdvReac Type Severity Reaction Status Date / Time onion Allergy Unknown Verified 03/27/22 10:21 Home Medications Medication Instructions Recorded Confirmed Last Taken Type Albuterol Sulfate [Proair 90 mcg IH Q4HR 03/23/22 03/23/22 Unknown History Digihaler] Aspirin EC [Halfprin EC] 81 mg PO QDAY 03/23/22 03/23/22 Unknown History Cholecalciferol Vit D3 [Vitamin D3 2,000 unit PO QDAY 03/23/22 03/23/22 Unknown History 1,000 UNIT TAB] Fluticasone [Flonase] 1 spray NS QDAY 03/23/22 03/23/22 Unknown History Multivit-Min/FA/Lycopen/Lutein 1 each PO DAILY 03/23/22 03/23/22 Unknown History [Abc Plus Tablet] Tiotropium [Spiriva] 18 mcg IH QDAY 03/23/22 03/23/22 Unknown History Varenicline Tartrate 0.5 mg PO DAILY 03/23/22 03/23/22 Unknown History Active Meds: Active Medications Albuterol (Albuterol 2.5 Mg/3 Ml Nebu) 2.5 mg IH BIDRT [facility] Last Admin: 03/31/22 07:46 Dose: 2.5 mg Aspirin (Aspirin Ec 81 Mg Tab) 81 mg PO QDAY [facility] Last Admin: 03/30/22 11:32 Dose: 81 mg Atorvastatin Calcium (Atorvastatin 40 Mg Tab) 40 mg PO QHS [facility] Last Admin: 03/30/22 21:37 Dose: 40 mg Cholecalciferol (Cholecalciferol (Vit D3) 1000 Unit (25 Mcg) Tab) 2,000 unit PO QDAY [facility] Last Admin: 03/30/22 09:23 Dose: 2,000 unit Divalproex Sodium (Divalproex Dr 125 Mg Tab) 125 mg PO BID [facility] Last Admin: 03/30/22 21:37 Dose: 125 mg Fluticasone Propionate (Fluticasone Propionate Nasal [place] 16 Gm) 50 mcg NS QDAY [facility] Last Admin: 03/30/22 11:30 Dose: Not Given Haloperidol (Haloperidol 5 Mg Tab) 5 mg PO BID [facility] Last Admin: 03/30/22 21:38 Dose: 5 mg Haloperidol Lactate (Haloperidol Lactate 5 Mg/1 Ml Inj) 5 mg IM BID [facility] Last Admin: 03/30/22 21:39 Dose: Not Given Mirtazapine (Mirtazapine 15 Mg Tab) 7.5 mg PO QHS [facility] Last Admin: 03/30/22 21:37 Dose: 7.5 mg Miscellaneous Medication (Varenicline Tartrate [Varenicline Tartrate]) 0.5 mg PO DAILY [facility] Multivitamins/Minerals (Multivitamins,Ther W-Minerals Tab) 1 each PO QDAY [facility] Last Admin: 03/30/22 09:23 Dose: 1 each Tiotropium [place] (Tiotropium 18 Mcg Cap Inhalation) 1 puff IH QDAY [facility] Last Admin: 03/31/22 09:05 Dose: Not Given Ziprasidone (Ziprasidone Mesylate 20 Mg Vial) 10 mg IM Q4H PRN PRN Reason: Agitation Results - Results Labs/Vitals: Laboratory Last Values WBC 5.7 K/mm3 (4.5-11.0) 03/23/22 09:15 RBC 4.99 M/mm3 (3.65-5.03) 03/23/22 09:15 Hgb 15.8 gm/dl (11.8-15.2) H 03/23/22 09:15 Hct 45.3 % (35.5-45.6) 03/23/22 09:15 MCV 91 fl (84-94) 03/23/22 09:15 MCH 32 pg (28-32) 03/23/22 09:15 MCHC 35 % (32-34) H 03/23/22 09:15 RDW 13.2 % (13.2-15.2) 03/23/22 09:15 Plt Count 94 K/mm3 (140-440) L 03/23/22 09:15 Lymph % (Auto) 21.5 % (13.4-35.0) 03/23/22 09:15 [place] % (Auto) 6.9 % (0.0-7.3) 03/23/22 09:15 Eos % (Auto) 5.5 % (0.0-4.3) H 03/23/22 09:15 Baso % (Auto) 1.4 % (0.0-1.8) 03/23/22 09:15 Lymph # (Auto) 1.2 K/mm3 (1.2-5.4) 03/23/22 09:15 [place] # (Auto) 0.4 K/mm3 (0.0-0.8) 03/23/22 09:15 Eos # (Auto) 0.3 K/mm3 (0.0-0.4) 03/23/22 09:15 Baso # (Auto) 0.1 K/mm3 (0.0-0.1) 03/23/22 09:15 Seg Neutrophils % 64.7 % (40.0-70.0) 03/23/22 09:15 Seg Neutrophils # 3.7 K/mm3 (1.8-7.7) 03/23/22 09:15 Sodium 139 mmol/L (137-145) 03/23/22 09:15 Potassium 3.7 mmol/L (3.6-5.0) 03/23/22 09:15 Chloride 100.6 mmol/L (98-107) 03/23/22 09:15 Carbon Dioxide 25 mmol/L (22-30) 03/23/22 09:15 Anion Gap 17 mmol/L 03/23/22 09:15 BUN 15 mg/dL (9-20) 03/23/22 09:15 Creatinine 0.8 mg/dL (0.8-1.3) 03/23/22 09:15 Estimated GFR > 60 ml/min 03/23/22 09:15 BUN/Creatinine Ratio 19 % 03/23/22 09:15 Glucose 112 mg/dL (75-100) H 03/23/22 09:15 Hemoglobin A1c 5.4 % (4-6) 03/23/22 09:15 Calcium 9.5 mg/dL (8.4-10.2) 03/23/22 09:15 Total Bilirubin 1.00 mg/dL (0.1-1.2) 03/23/22 09:15 AST 29 units/L (5-40) 03/23/22 09:15 ALT 19 units/L (7-56) 03/23/22 09:15 Alkaline Phosphatase 99 units/L (35-129) 03/23/22 09:15 Total Protein 6.6 g/dL (6.3-8.2) 03/23/22 09:15 Albumin 4.8 g/dL (3.9-5) 03/23/22 09:15 Albumin/Globulin Ratio 2.7 % 03/23/22 09:15 Triglycerides 92 mg/dL (2-149) 03/23/22 09:15 Cholesterol 206 mg/dL (50-199) H 03/23/22 09:15 LDL Cholesterol Direct 136 mg/dL (50-130) H 03/23/22 09:15 HDL Cholesterol 53 mg/dL (40-59) 03/23/22 09:15 Cholesterol/HDL Ratio 3.88 % 03/23/22 09:15 TSH 1.480 mlU/mL (0.270-4.200) 03/23/22 09:15 Last Vital Signs Temp 99.1 F 03/30/22 22:00 Pulse 80 03/31/22 07:47 Resp 17 03/31/22 07:47 BP 116/68 03/30/22 22:00 Pulse Ox 96 03/30/22 22:00
[2022-03-31] MEDS: ASPIRIN EC 81 MG TAB PO SCH (09:47)
[2022-03-31] MEDS: DIVALPROEX DR 125 MG TAB PO SCH ×2 (09:47→21:47)
[2022-03-31] MEDS: HALOPERIDOL 5 MG TAB PO SCH ×2 (09:48→21:48)
[2022-03-31] MEDS: CHOLECALCIFEROL (VIT D3) 1000 UNIT (25 mcg) TAB PO SCH (09:48)
[2022-03-31] MEDS: MULTIVITAMINS,THER W-MINERALS TAB PO SCH (09:48)
[2022-03-31] MEDS: FLUTICASONE PROPIONATE NASAL SPRAY 16 GM NS SCH (09:55)
[2022-03-31] MEDS: HALOPERIDOL LACTATE 5 MG/1 ML INJ IM SCH ×2 (10:24→22:19)
--- NOTE | 2022-03-31 13:23 | Progress Note ---
Assessment and Plan Assessment and plan: #Hyperlipidemia -lipid panel ordered, LDL: 136, TC: 206 -lifetime ASCVD risk 25.5% -continue atorvastatin 40mg qhs #History of COPD -stable, not in acute exacerbation -continue home inhalers -continue PRN albuterol for wheezing/SOB #tobacco dependence #tobacco cessation counseling -nicotine patch offered patient declined, will continue chantix -smoking cessation counseling, supportive care, behavior change counseling, +15 minutes #Advanced care planning -Disease education conducted, care plan discussed, diagnoses discussed, prognosis discussed, and patient acknowledges understanding with care plan -Time: +30 min Disposition Plan: Continue medical management Total Time Spent with Patient (Minutes): 30-minute History Interval history: No acute events overnight. Hospitalist Physical - Constitutional Vitals: Temp Pulse Resp BP Pulse Ox 99.1 F 80 17 116/68 96 03/30/22 22:00 03/31/22 07:47 03/31/22 07:47 03/30/22 22:00 03/30/22 22:00 General appearance: Present: no acute distress, well-nourished - EENT Eyes: Present: PERRL, EOM intact ENT: hearing intact, clear oral mucosa, dentition normal - Neck Neck: Present: supple, normal ROM - Respiratory Respiratory effort: normal Respiratory: bilateral: CTA - Cardiovascular Rhythm: regular Heart Sounds: Present: S1 & S2 - Extremities Extremities: no ischemia, pulses intact, pulses symmetrical, No edema, normal temperature, normal color Peripheral Pulses: within normal limits - Abdominal General gastrointestinal: soft, non-tender, non-distended, normal bowel sounds - Integumentary Integumentary: Present: clear, warm, dry - Psychiatric Psychiatric: agitated - Neurologic Neurologic: CNII-XII intact - Allied Health Allied health notes reviewed: nursing Results - Labs CBC & Chem 7: 03/23/22 09:15 03/23/22 09:15 Labs: Laboratory Last Values WBC 5.7 K/mm3 (4.5-11.0) 03/23/22 09:15 RBC 4.99 M/mm3 (3.65-5.03) 03/23/22 09:15 Hgb 15.8 gm/dl (11.8-15.2) H 03/23/22 09:15 Hct 45.3 % (35.5-45.6) 03/23/22 09:15 MCV 91 fl (84-94) 03/23/22 09:15 MCH 32 pg (28-32) 03/23/22 09:15 MCHC 35 % (32-34) H 03/23/22 09:15 RDW 13.2 % (13.2-15.2) 03/23/22 09:15 Plt Count 94 K/mm3 (140-440) L 03/23/22 09:15 Lymph % (Auto) 21.5 % (13.4-35.0) 03/23/22 09:15 [place] % (Auto) 6.9 % (0.0-7.3) 03/23/22 09:15 Eos % (Auto) 5.5 % (0.0-4.3) H 03/23/22 09:15 Baso % (Auto) 1.4 % (0.0-1.8) 03/23/22 09:15 Lymph # (Auto) 1.2 K/mm3 (1.2-5.4) 03/23/22 09:15 [place] # (Auto) 0.4 K/mm3 (0.0-0.8) 03/23/22 09:15 Eos # (Auto) 0.3 K/mm3 (0.0-0.4) 03/23/22 09:15 Baso # (Auto) 0.1 K/mm3 (0.0-0.1) 03/23/22 09:15 Seg Neutrophils % 64.7 % (40.0-70.0) 03/23/22 09:15 Seg Neutrophils # 3.7 K/mm3 (1.8-7.7) 03/23/22 09:15 Sodium 139 mmol/L (137-145) 03/23/22 09:15 Potassium 3.7 mmol/L (3.6-5.0) 03/23/22 09:15 Chloride 100.6 mmol/L (98-107) 03/23/22 09:15 Carbon Dioxide 25 mmol/L (22-30) 03/23/22 09:15 Anion Gap 17 mmol/L 03/23/22 09:15 BUN 15 mg/dL (9-20) 03/23/22 09:15 Creatinine 0.8 mg/dL (0.8-1.3) 03/23/22 09:15 Estimated GFR > 60 ml/min 03/23/22 09:15 BUN/Creatinine Ratio 19 % 03/23/22 09:15 Glucose 112 mg/dL (75-100) H 03/23/22 09:15 Hemoglobin A1c 5.4 % (4-6) 03/23/22 09:15 Calcium 9.5 mg/dL (8.4-10.2) 03/23/22 09:15 Total Bilirubin 1.00 mg/dL (0.1-1.2) 03/23/22 09:15 AST 29 units/L (5-40) 03/23/22 09:15 ALT 19 units/L (7-56) 03/23/22 09:15 Alkaline Phosphatase 99 units/L (35-129) 03/23/22 09:15 Total Protein 6.6 g/dL (6.3-8.2) 03/23/22 09:15 Albumin 4.8 g/dL (3.9-5) 03/23/22 09:15 Albumin/Globulin Ratio 2.7 % 03/23/22 09:15 Triglycerides 92 mg/dL (2-149) 03/23/22 09:15 Cholesterol 206 mg/dL (50-199) H 03/23/22 09:15 LDL Cholesterol Direct 136 mg/dL (50-130) H 03/23/22 09:15 HDL Cholesterol 53 mg/dL (40-59) 03/23/22 09:15 Cholesterol/HDL Ratio 3.88 % 03/23/22 09:15 TSH 1.480 mlU/mL (0.270-4.200) 03/23/22 09:15 SARS-CoV-2 (PCR) Positive (Negative) A 03/31/22 12:20 [place]/IV: Voiding Method Toilet Active Medications - Current Medications Current Medications: Generic Name Dose Route Start Last Admin Trade Name Freq PRN Reason Stop Dose Admin Albuterol 2.5 mg 03/24/22 20:00 03/31/22 07:46 Albuterol 2.5 Mg/3 Ml Nebu IH 2.5 mg BIDRT [facility] Administration Aspirin 81 mg 03/23/22 12:00 03/31/22 09:47 Aspirin Ec 81 Mg Tab PO 81 mg QDAY [facility] Administration Atorvastatin Calcium 40 mg 03/23/22 22:00 03/30/22 21:37 Atorvastatin 40 Mg Tab PO 40 mg QHS [facility] Administration Cholecalciferol 2,000 unit 03/23/22 12:00 03/31/22 09:48 Cholecalciferol (Vit D3) 1000 Unit (25 Mcg) Tab PO 2,000 unit QDAY [facility] Administration Divalproex Sodium 125 mg 03/27/22 22:00 03/31/22 09:[address] 125 Mg Tab PO 125 mg BID [facility] Administration Fluticasone Propionate 50 mcg 03/23/22 12:00 03/31/22 09:55 Fluticasone Propionate Nasal [place] 16 Gm NS 50 mcg QDAY [facility] Administration Haloperidol 5 mg 03/29/22 22:00 03/31/22 09:48 Haloperidol 5 Mg Tab PO 5 mg BID [facility] Administration Haloperidol Lactate 5 mg 03/29/22 22:00 03/31/22 10:24 Haloperidol Lactate 5 Mg/1 Ml Inj IM Not Given BID [facility] Mirtazapine 7.5 mg 03/30/22 22:00 03/30/22 21:37 Mirtazapine 15 Mg Tab PO 7.5 mg QHS [facility] Administration Miscellaneous Medication 0.5 mg 03/23/22 11:15 Varenicline Tartrate [Varenicline Tartrate] PO DAILY [facility] Multivitamins/Minerals 1 each 03/23/22 12:00 03/31/22 09:48 Multivitamins,Ther W-Minerals Tab PO 1 each QDAY [facility] Administration Tiotropium [place] 1 puff 03/23/22 12:00 03/31/22 09:05 Tiotropium 18 Mcg Cap Inhalation IH Not Given QDAY [facility] Ziprasidone 10 mg 03/27/22 12:00 Ziprasidone Mesylate 20 Mg Vial IM Q4H PRN Agitation Nutrition/Malnutrition Assess - Dietary Evaluation Nutrition/Malnutrition Findings: Nutrition Notes Start: 03/23/22 14:03 Freq: Status: Active Protocol: Document 03/23/22 14:03 FARIBA (Rec: 03/23/22 14:19 FARIBA [id number]) Nutrition Notes Need for Assessment generated from: Low BMI Initial or Follow up Assessment Current Diagnosis Hyperlipidemia Other Pertinent Diagnosis Dementia w/Behavioral Disturbance. Current Diet Regular Diet (since B 03/23). Labs/Tests 03/23: Glu 112, HbA1c 5.4. Pertinent Medications 03/23: Vit D3, Multivitamins, others nutritionally unremarkable. 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 Weight Status Underweight Subjective/Other Information RD consult for Low BMI assessment. No reports available of Pt's PO intake of meals at the time , and RN states that Pt refused his meals, according to ADL notes. Pt's Low BMI seems to correspond to a natural body composition, and not related to a sudden loss of body weight nor chronic malnutrition, since no signs of concern were mentioned in the Physical Assessment History or the Progress notes. Percent of energy/protein needs met: Prescribed Regular Diet provides for energy/protein needs (2,289 Kcal/89 g) during LOS. Burn Absent Trauma Absent GI Symptoms None Food Allergy Yes Skin Integrity/Comment Assessment WNL. Minimum of two criteria No Fluid Accumulation N/A Reduced Electrical Contacts Adjuster Strength N/A (non-severe) Protein-Calorie Malnutrition N\A #1 Nutrition Diagnosis No nutrition diagnosis at this time Is patient on ventilator? No Is Patient Ambulatory and/or Out of Bed Yes REE-([facility]-ambulatory/OOB) [ 1536.210 [id number]] Kcal/Kg value to use for calculation 33 Approximate Energy Requirements Using 1647 kcal/Kg Calculation Used for Recommendations Kcal/kg Additional Notes Protein: 1-1.2 g/Kg IBW; 65-78 g/day. Fluids: 1 ml/Kcal, or as per MD. Nutrition Intervention Change Diet Order: Continue Regular Diet. Revisit per MD consult or patient Sign Off request: Additional Comments Continue monitoring food tolerance, %PO intake of meals , and BM.
[2022-03-31] MEDS: MIRTAZAPINE 15 MG TAB PO SCH (21:48)
[2022-04-01] MEDS: ALBUTEROL 2.5 MG/3 ML NEBU IH SCH ×3 (08:31→21:54)
[2022-04-01] MEDS: TIOTROPIUM 18 MCG CAP INHALATION IH SCH ×2 (08:32→09:17)
--- NOTE | 2022-04-01 10:39 | Progress Note ---
Subjective Date of service: 04/01/22 Principal diagnosis: Delusional Disorder Subjective Comment: 04/01: The patient was seen today. Patient is not oriented to place. He continues to have delusions and does not follow directions. Per nurse, the patient is noncompliant with medications. He is agitated and continues to require in-patient treatment. Plan: Depakote increased to 500mg bid and Remeron increased to 15mg qhs 03/31:The patient was seen today. The patient continues to be confused and tangential. Unable to assess SI/HI/AVHs. No changes made today. 03/30: The patient was seen today. He continues to be confused and paranoid. Per nurse, " the patient became more anxious and restless as the evening progressed. He presents as paranoid. Patient was encouraged to take a shower and he threatened to tear it down if staff did not turn it off. He denies si/hi/ah/vh but patient is actively delusional. His appetite is fair and he was medication compliant.Overnight the patient was awake often. He came out of his room and was confused. He was trying to go into his peers rooms because he thought their rooms were his even though his name is on the door. He was encouraged to try to rest and would become irritable by that encouragement. He slept a total of 5 hours." Start Remeron 7.5mg po QHS. 03/29:The patient was seen today. He present with flat affect and talking to himself " I'm waiting on my dog." Increase Haldol to 5mg po or IM BID 03/28: The patient was seen today. He is alert and oriented x2. He continues to be easily irritable and confused " I'm looking for Gayla and my dog." Will increase Zyprexa to 5mg po QHS. 03/27:The patient was seen today. The patient is confused and easily irritated. Will start Depakote DR. 125mg po BID 03/26:The patient was seen today. He continues to be circumstantial. He states sleep is good. He denies any current suicidal/homicidal ideation. Increase Zyprexa to 2.5mg po BID. 03/25:The patient was seen on the hallway. The patient seems confused but states he is doing ok. He states mood is ok and sleep was fair. Unable to assess SI/HI/AVHs. 03/24:The patient was seen today. He is confused with poor insight. He says he slept up and down all night. He thinks he's at home in his bed. I asked the pat tanvi how he was feeling, he replies, "where am I? Am I at home?" He is reaching for things not there. And asks was his dog in the room. Will start low dose Olanzapine to treat delusions and hallucinations. REVIEW OF SYSTEMS MENTAL STATUS EXAMINATION Diagnoses: Dementia with behavioral disturbances Treatment Plan: Patient admitted for inpatient psychiatric evaluation, medication adjustment and close monitoring The patient's behavior, mood, sleep and appetite will be closely monitored. Patient enrolled in individual and group therapeutic sessions and encouraged to attend. Patient provided with a safe and structured environment. Patient's physical health needs will be addressed by the Hospitalist. Hospitalist Consulted Labs including CBC, CMP, Lipid profile and Hemoglobin A1C levels ordered for baseline reference Social Assessment will be completed and the Home Paraprofessional will work with patient and family to ensure a suitable and safe disposition Medication adjustment will be made as clinically indicated Continue Depakote 125mg po BID Usual Wellness Synagogue/Preservation: - Start Trazodone 50 mg po QHS & 50 mg po QHS PRN between 10 PM & 2 AM for insomnia - Start Melatonin 5 mg po QHS to promote circadian rhythm The patient agreed on the treatment plan, understood the risk, benefit, alternative treatment, potential consequence of no treatment, and gave informed consent. Estimated days: 7 Medications and Allergies Allergies Allergy/AdvReac Type Severity Reaction Status Date / Time onion Allergy Unknown Verified 03/27/22 10:21 Home Medications Medication Instructions Recorded Confirmed Last Taken Type Albuterol Sulfate [Proair 90 mcg IH Q4HR 03/23/22 03/23/22 Unknown History Digihaler] Aspirin EC [Halfprin EC] 81 mg PO QDAY 03/23/22 03/23/22 Unknown History Cholecalciferol Vit D3 [Vitamin D3 2,000 unit PO QDAY 03/23/22 03/23/22 Unknown History 1,000 UNIT TAB] Fluticasone [Flonase] 1 spray NS QDAY 03/23/22 03/23/22 Unknown History Multivit-Min/FA/Lycopen/Lutein 1 each PO DAILY 03/23/22 03/23/22 Unknown History [Abc Plus Tablet] Tiotropium [Spiriva] 18 mcg IH QDAY 03/23/22 03/23/22 Unknown History Varenicline Tartrate 0.5 mg PO DAILY 03/23/22 03/23/22 Unknown History Active Meds: Active Medications Albuterol (Albuterol 2.5 Mg/3 Ml Nebu) 2.5 mg IH BIDRT [facility] Last Admin: 04/01/22 08:37 Dose: Not Given Aspirin (Aspirin Ec 81 Mg Tab) 81 mg PO QDAY [facility] Last Admin: 03/31/22 09:47 Dose: 81 mg Atorvastatin Calcium (Atorvastatin 40 Mg Tab) 40 mg PO QHS [facility] Last Admin: 03/31/22 21:48 Dose: 40 mg Cholecalciferol (Cholecalciferol (Vit D3) 1000 Unit (25 Mcg) Tab) 2,000 unit PO QDAY [facility] Last Admin: 03/31/22 09:48 Dose: 2,000 unit Divalproex Sodium (Divalproex Dr 125 Mg Tab) 125 mg PO BID [facility] Last Admin: 03/31/22 21:47 Dose: 125 mg Fluticasone Propionate (Fluticasone Propionate Nasal [place] 16 Gm) 50 mcg NS QDAY [facility] Last Admin: 03/31/22 09:55 Dose: 50 mcg Haloperidol (Haloperidol 5 Mg Tab) 5 mg PO BID [facility] Last Admin: 03/31/22 21:48 Dose: 5 mg Haloperidol Lactate (Haloperidol Lactate 5 Mg/1 Ml Inj) 5 mg IM BID [facility] Last Admin: 03/31/22 22:19 Dose: Not Given Mirtazapine (Mirtazapine 15 Mg Tab) 7.5 mg PO QHS [facility] Last Admin: 03/31/22 21:48 Dose: 7.5 mg Miscellaneous Medication (Varenicline Tartrate [Varenicline Tartrate]) 0.5 mg P O DAILY [facility] Multivitamins/Minerals (Multivitamins,Ther W-Minerals Tab) 1 each PO QDAY [facility] Last Admin: 03/31/22 09:48 Dose: 1 each Tiotropium [place] (Tiotropium 18 Mcg Cap Inhalation) 1 puff IH QDAY [facility] Last Admin: 04/01/22 09:17 Dose: Not Given Ziprasidone (Ziprasidone Mesylate 20 Mg Vial) 10 mg IM Q4H PRN PRN Reason: Agitation Results - Results Labs/Vitals: Laboratory Last Values WBC 5.7 K/mm3 (4.5-11.0) 03/23/22 09:15 RBC 4.99 M/mm3 (3.65-5.03) 03/23/22 09:15 Hgb 15.8 gm/dl (11.8-15.2) H 03/23/22 09:15 Hct 45.3 % (35.5-45.6) 03/23/22 09:15 MCV 91 fl (84-94) 03/23/22 09:15 MCH 32 pg (28-32) 03/23/22 09:15 MCHC 35 % (32-34) H 03/23/22 09:15 RDW 13.2 % (13.2-15.2) 03/23/22 09:15 Plt Count 94 K/mm3 (140-440) L 03/23/22 09:15 Lymph % (Auto) 21.5 % (13.4-35.0) 03/23/22 09:15 [place] % (Auto) 6.9 % (0.0-7.3) 03/23/22 09:15 Eos % (Auto) 5.5 % (0.0-4.3) H 03/23/22 09:15 Baso % (Auto) 1.4 % (0.0-1.8) 03/23/22 09:15 Lymph # (Auto) 1.2 K/mm3 (1.2-5.4) 03/23/22 09:15 [place] # (Auto) 0.4 K/mm3 (0.0-0.8) 03/23/22 09:15 Eos # (Auto) 0.3 K/mm3 (0.0-0.4) 03/23/22 09:15 Baso # (Auto) 0.1 K/mm3 (0.0-0.1) 03/23/22 09:15 Seg Neutrophils % 64.7 % (40.0-70.0) 03/23/22 09:15 Seg Neutrophils # 3.7 K/mm3 (1.8-7.7) 03/23/22 09:15 Sodium 139 mmol/L (137-145) 03/23/22 09:15 Potassium 3.7 mmol/L (3.6-5.0) 03/23/22 09:15 Chloride 100.6 mmol/L (98-107) 03/23/22 09:15 Carbon Dioxide 25 mmol/L (22-30) 03/23/22 09:15 Anion Gap 17 mmol/L 03/23/22 09:15 BUN 15 mg/dL (9-20) 03/23/22 09:15 Creatinine 0.8 mg/dL (0.8-1.3) 03/23/22 09:15 Estimated GFR > 60 ml/min 03/23/22 09:15 BUN/Creatinine Ratio 19 % 03/23/22 09:15 Glucose 112 mg/dL (75-100) H 03/23/22 09:15 Hemoglobin A1c 5.4 % (4-6) 03/23/22 09:15 Calcium 9.5 mg/dL (8.4-10.2) 03/23/22 09:15 Total Bilirubin 1.00 mg/dL (0.1-1.2) 03/23/22 09:15 AST 29 units/L (5-40) 03/23/22 09:15 ALT 19 units/L (7-56) 03/23/22 09:15 Alkaline Phosphatase 99 units/L (35-129) 03/23/22 09:15 Total Protein 6.6 g/dL (6.3-8.2) 03/23/22 09:15 Albumin 4.8 g/dL (3.9-5) 03/23/22 09:15 Albumin/Globulin Ratio 2.7 % 03/23/22 09:15 Triglycerides 92 mg/dL (2-149) 03/23/22 09:15 Cholesterol 206 mg/dL (50-199) H 03/23/22 09:15 LDL Cholesterol Direct 136 mg/dL (50-130) H 03/23/22 09:15 HDL Cholesterol 53 mg/dL (40-59) 03/23/22 09:15 Cholesterol/HDL Ratio 3.88 % 03/23/22 09:15 TSH 1.480 mlU/mL (0.270-4.200) 03/23/22 09:15 SARS-CoV-2 (PCR) Positive (Negative) A 03/31/22 12:20 Last Vital Signs Temp 98.1 F 03/31/22 20:19 Pulse 89 03/31/22 22:00 Resp 16 03/31/22 20:19 BP 120/62 03/31/22 20:19 Pulse Ox 93 03/31/22 20:19
[2022-04-01] MEDS: HALOPERIDOL 5 MG TAB PO SCH ×3 (10:54→21:59)
[2022-04-01] MEDS: DIVALPROEX DR 125 MG TAB PO SCH (10:55)
[2022-04-01] MEDS: FLUTICASONE PROPIONATE NASAL SPRAY 16 GM NS SCH (11:55)
[2022-04-01] MEDS: HALOPERIDOL LACTATE 5 MG/1 ML INJ IM SCH ×2 (11:55→22:03)
[2022-04-01] MEDS: CHOLECALCIFEROL (VIT D3) 1000 UNIT (25 mcg) TAB PO SCH (11:55)
[2022-04-01] MEDS: MULTIVITAMINS,THER W-MINERALS TAB PO SCH (11:55)
[2022-04-01] MEDS: ASPIRIN EC 81 MG TAB PO SCH (11:55)
--- NOTE | 2022-04-01 16:03 | Progress Note ---
Assessment and Plan Assessment and plan: #COVID-19 infection Positive coronavirus PCR on 03/31/2022 No clinical indication to initiate antiretrovirals as the patient is saturating well on room air and afebrile. Continue self-isolation in his room for approximately 5 days per CDC guidelines (04/04/2022 will be his last day of quarantine). Continue to monitor #Hyperlipidemia -lipid panel ordered, LDL: 136, TC: 206 -lifetime ASCVD risk 25.5% -continue atorvastatin 40mg qhs #History of COPD -stable, not in acute exacerbation -continue home inhalers -continue PRN albuterol for wheezing/SOB #tobacco dependence #tobacco cessation counseling -nicotine patch offered patient declined, will continue chantix -smoking cessation counseling, supportive care, behavior change counseling, +15 minutes #Advanced care planning -Disease education conducted, care plan discussed, diagnoses discussed, prognosis discussed, and patient acknowledges understanding with care plan -Time: +30 min Disposition Plan: Continue medical management Total Time Spent with Patient (Minutes): 30 minutes History Interval history: Patient was found to be positive for coronavirus yesterday. Hospitalist Physical - Constitutional Vitals: Temp Pulse Resp BP Pulse Ox 98.1 F 89 16 120/62 93 03/31/22 20:19 03/31/22 22:00 03/31/22 20:19 03/31/22 20:19 03/31/22 20:19 General appearance: Present: no acute distress, well-nourished - EENT Eyes: Present: PERRL, EOM intact ENT: hearing intact, clear oral mucosa, dentition normal - Neck Neck: Present: supple, normal ROM - Respiratory Respiratory effort: normal Respiratory: bilateral: diminished - Cardiovascular Rhythm: regular Heart Sounds: Present: S1 & S2 - Extremities Extremities: no ischemia, pulses intact, pulses symmetrical, No edema, normal temperature, normal color Peripheral Pulses: within normal limits - Abdominal General gastrointestinal: soft, non-tender, non-distended, normal bowel sounds - Integumentary Integumentary: Present: clear, warm, dry - Psychiatric Psychiatric: agitated, depressed - Neurologic Neurologic: CNII-XII intact - Allied Health Allied health notes reviewed: nursing Results - Labs CBC & Chem 7: 03/23/22 09:15 03/23/22 09:15 Labs: Laboratory Last Values WBC 5.7 K/mm3 (4.5-11.0) 03/23/22 09:15 RBC 4.99 M/mm3 (3.65-5.03) 03/23/22 09:15 Hgb 15.8 gm/dl (11.8-15.2) H 03/23/22 09:15 Hct 45.3 % (35.5-45.6) 03/23/22 09:15 MCV 91 fl (84-94) 03/23/22 09:15 MCH 32 pg (28-32) 03/23/22 09:15 MCHC 35 % (32-34) H 03/23/22 09:15 RDW 13.2 % (13.2-15.2) 03/23/22 09:15 Plt Count 94 K/mm3 (140-440) L 03/23/22 09:15 Lymph % (Auto) 21.5 % (13.4-35.0) 03/23/22 09:15 [place] % (Auto) 6.9 % (0.0-7.3) 03/23/22 09:15 Eos % (Auto) 5.5 % (0.0-4.3) H 03/23/22 09:15 Baso % (Auto) 1.4 % (0.0-1.8) 03/23/22 09:15 Lymph # (Auto) 1.2 K/mm3 (1.2-5.4) 03/23/22 09:15 [place] # (Auto) 0.4 K/mm3 (0.0-0.8) 03/23/22 09:15 Eos # (Auto) 0.3 K/mm3 (0.0-0.4) 03/23/22 09:15 Baso # (Auto) 0.1 K/mm3 (0.0-0.1) 03/23/22 09:15 Seg Neutrophils % 64.7 % (40.0-70.0) 03/23/22 09:15 Seg Neutrophils # 3.7 K/mm3 (1.8-7.7) 03/23/22 09:15 Sodium 139 mmol/L (137-145) 03/23/22 09:15 Potassium 3.7 mmol/L (3.6-5.0) 03/23/22 09:15 Chloride 100.6 mmol/L (98-107) 03/23/22 09:15 Carbon Dioxide 25 mmol/L (22-30) 03/23/22 09:15 Anion Gap 17 mmol/L 03/23/22 09:15 BUN 15 mg/dL (9-20) 03/23/22 09:15 Creatinine 0.8 mg/dL (0.8-1.3) 03/23/22 09:15 Estimated GFR > 60 ml/min 03/23/22 09:15 BUN/Creatinine Ratio 19 % 03/23/22 09:15 Glucose 112 mg/dL (75-100) H 03/23/22 09:15 Hemoglobin A1c 5.4 % (4-6) 03/23/22 09:15 Calcium 9.5 mg/dL (8.4-10.2) 03/23/22 09:15 Total Bilirubin 1.00 mg/dL (0.1-1.2) 03/23/22 09:15 AST 29 units/L (5-40) 03/23/22 09:15 ALT 19 units/L (7-56) 03/23/22 09:15 Alkaline Phosphatase 99 units/L (35-129) 03/23/22 09:15 Total Protein 6.6 g/dL (6.3-8.2) 03/23/22 09:15 Albumin 4.8 g/dL (3.9-5) 03/23/22 09:15 Albumin/Globulin Ratio 2.7 % 03/23/22 09:15 Triglycerides 92 mg/dL (2-149) 03/23/22 09:15 Cholesterol 206 mg/dL (50-199) H 03/23/22 09:15 LDL Cholesterol Direct 136 mg/dL (50-130) H 03/23/22 09:15 HDL Cholesterol 53 mg/dL (40-59) 03/23/22 09:15 Cholesterol/HDL Ratio 3.88 % 03/23/22 09:15 TSH 1.480 mlU/mL (0.270-4.200) 03/23/22 09:15 SARS-CoV-2 (PCR) Positive (Negative) A 03/31/22 12:20 Kaufman/IV: Voiding Method Toilet Active Medications - Current Medications Current Medications: Generic Name Dose Route Start Last Admin Trade Name Freq PRN Reason Stop Dose Admin Albuterol 2.5 mg 03/24/22 20:00 04/01/22 08:37 Albuterol 2.5 Mg/3 Ml Nebu IH Not Given BIDRT [facility] Aspirin 81 mg 03/23/22 12:00 04/01/22 11:55 Aspirin Ec 81 Mg Tab PO Not Given QDAY [facility] Atorvastatin Calcium 40 mg 03/23/22 22:00 03/31/22 21:48 Atorvastatin 40 Mg Tab PO 40 mg QHS [facility] Administration Cholecalciferol 2,000 unit 03/23/22 12:00 04/01/22 11:55 Cholecalciferol (Vit D3) 1000 Unit (25 Mcg) Tab PO Not Given QDAY [facility] Divalproex Sodium 500 mg 04/01/22 22:[address] 125 Mg Tab PO BID [facility] Fluticasone Propionate 50 mcg 03/23/22 12:00 04/01/22 11:55 Fluticasone Propionate Nasal [place] 16 Gm NS Not Given QDAY [facility] Haloperidol 5 mg 03/29/22 22:00 04/01/22 10:54 Haloperidol 5 Mg Tab PO 5 mg BID [facility] Administration Haloperidol Lactate 5 mg 03/29/22 22:00 04/01/22 11:55 Haloperidol Lactate 5 Mg/1 Ml Inj IM Not Given BID [facility] Mirtazapine 15 mg 04/01/22 22:00 Mirtazapine 15 Mg Tab PO QHS [facility] Miscellaneous Medication 0.5 mg 03/23/22 11:15 Varenicline Tartrate [Varenicline Tartrate] PO DAILY [facility] Multivitamins/Minerals 1 each 03/23/22 12:00 04/01/22 11:55 Multivitamins,Ther W-Minerals Tab PO Not Given QDAY [facility] Tiotropium [place] 1 puff 03/23/22 12:00 04/01/22 09:17 Tiotropium 18 Mcg Cap Inhalation IH Not Given QDAY [facility] Ziprasidone 10 mg 03/27/22 12:00 Ziprasidone Mesylate 20 Mg Vial IM Q4H PRN Agitation Nutrition/Malnutrition Assess - Dietary Evaluation Nutrition/Malnutrition Findings: Nutrition Notes Start: 03/23/22 14:03 Freq: Status: Active Protocol: Document 03/23/22 14:03 FARIBA (Rec: 03/23/22 14:19 FARIBA [id number]) Nutrition Notes Need for Assessment generated from: Low BMI Initial or Follow up Assessment Current Diagnosis Hyperlipidemia Other Pertinent Diagnosis Dementia w/Behavioral Disturbance. Current Diet Regular Diet (since B 03/23). Labs/Tests 03/23: Glu 112, HbA1c 5.4. Pertinent Medications 03/23: Vit D3, Multivitamins, others nutritionally unremarkable. Height 5 ft 6 in Weight 49.895 kg [place] Body Weight (kg) 64.54 BMI 17.7 Intake Prior to Admission Good Weight change and time frame Pt denies having loss body weight [employer]. Weight Status Underweight Subjective/Other Information RD consult for Low BMI assessment. No reports available of Pt's PO intake of meals at the time , and RN states that Pt refused his meals, according to ADL notes. Pt's Low BMI seems to correspond to a natural body composition, and not related to a sudden loss of body weight nor chronic malnutrition, since no signs of concern were mentioned in the Physical Assessment History or the Progress notes. Percent of energy/protein needs met: Prescribed Regular Diet provides for energy/protein needs (2,289 Kcal/89 g) during LOS. Burn Absent Trauma Absent GI Symptoms None Food Allergy Yes Skin Integrity/Comment Assessment WNL. Minimum of two criteria No Fluid Accumulation N/A Reduced [employer]per As[employer]er Strength N/A (non-severe) Protein-Calorie Malnutrition N\A #1 Nutrition Diagnosis No nutrition diagnosis at this time Is patient on ventilator? No Is Patient Ambulatory and/or Out of Bed Yes REE-([facility]-ambulatory/OOB) [ 1536.210 NUTR.[email or web address]] Kcal/Kg value to use for calculation 33 Approximate Energy Requirements Using 1647 kcal/Kg Calculation Used for Recommendations Kcal/kg Additional Notes Protein: 1-1.2 g/Kg IBW; 65-78 g/day. Fluids: 1 ml/Kcal, or as per MD. Nutrition Intervention Change Diet Order: Continue Regular Diet. Revisit per MD consult or patient Sign Off request: Additional Comments Continue monitoring food tolerance, %PO intake of meals , and BM.
[2022-04-01] MEDS: DIVALPROEX DR 500 MG TAB PO SCH ×2 (21:41→21:57)
[2022-04-01] MEDS: MIRTAZAPINE 15 MG TAB PO SCH ×2 (21:43→21:57)
[2022-04-01] MEDS ORDERED: DIVALPROEX DR 125 MG TAB PO SCH (22:00)
[2022-04-02] MEDS: ALBUTEROL 2.5 MG/3 ML NEBU IH SCH ×2 (09:04→22:19)
[2022-04-02] MEDS: TIOTROPIUM 18 MCG CAP INHALATION IH SCH (09:05)
[2022-04-02] MEDS: ASPIRIN EC 81 MG TAB PO SCH (11:38)
[2022-04-02] MEDS: CHOLECALCIFEROL (VIT D3) 1000 UNIT (25 mcg) TAB PO SCH (11:38)
[2022-04-02] MEDS: HALOPERIDOL 5 MG TAB PO SCH ×3 (11:38→21:40)
[2022-04-02] MEDS: DIVALPROEX DR 500 MG TAB PO SCH ×3 (11:38→21:39)
[2022-04-02] MEDS: MULTIVITAMINS,THER W-MINERALS TAB PO SCH (11:38)
[2022-04-02] MEDS: FLUTICASONE PROPIONATE NASAL SPRAY 16 GM NS SCH (11:39)
[2022-04-02] MEDS: HALOPERIDOL LACTATE 5 MG/1 ML INJ IM SCH ×2 (12:05→21:18)
--- NOTE | 2022-04-02 13:11 | Progress Note ---
Assessment and Plan Assessment and plan: #COVID-19 infection Positive coronavirus PCR on 03/31/2022 No clinical indication to initiate antiretrovirals as the patient is saturating well on room air and afebrile. Continue self-isolation in his room for approximately 5 days per CDC guidelines (04/04/2022 will be his last day of quarantine). Continue to monitor #Hyperlipidemia -lipid panel ordered, LDL: 136, TC: 206 -lifetime ASCVD risk 25.5% -continue atorvastatin 40mg qhs #History of COPD -stable, not in acute exacerbation -continue home inhalers -continue PRN albuterol for wheezing/SOB #tobacco dependence #tobacco cessation counseling -nicotine patch offered patient declined, will continue chantix -smoking cessation counseling, supportive care, behavior change counseling, +15 minutes #Advanced care planning -Disease education conducted, care plan discussed, diagnoses discussed, prognosis discussed, and patient acknowledges understanding with care plan -Time: +30 min Disposition Plan: Continue medical management Total Time Spent with Patient (Minutes): 30 minutes History Interval history: No acute events overnight. Hospitalist Physical - Constitutional Vitals: Temp Pulse Resp BP Pulse Ox 98.4 F 65 16 120/76 96 04/01/22 20:25 04/01/22 20:25 04/01/22 20:25 04/01/22 20:25 04/01/22 20:25 General appearance: Present: no acute distress, well-nourished - EENT Eyes: Present: PERRL, EOM intact ENT: hearing intact, clear oral mucosa, dentition normal - Neck Neck: Present: supple, normal ROM - Respiratory Respiratory effort: normal Respiratory: bilateral: CTA - Cardiovascular Rhythm: regular Heart Sounds: Present: S1 & S2 - Extremities Extremities: no ischemia, pulses intact, pulses symmetrical, No edema, normal t emperature, normal color Peripheral Pulses: within normal limits - Abdominal General gastrointestinal: soft, non-tender, non-distended, normal bowel sounds - Integumentary Integumentary: Present: clear, warm, dry - Psychiatric Psychiatric: agitated, other (Uncooperative) - Neurologic Neurologic: CNII-XII intact - Allied Health Allied health notes reviewed: nursing Results - Labs CBC & Chem 7: 03/23/22 09:15 03/23/22 09:15 Labs: Laboratory Last Values WBC 5.7 K/mm3 (4.5-11.0) 03/23/22 09:15 RBC 4.99 M/mm3 (3.65-5.03) 03/23/22 09:15 Hgb 15.8 gm/dl (11.8-15.2) H 03/23/22 09:15 Hct 45.3 % (35.5-45.6) 03/23/22 09:15 MCV 91 fl (84-94) 03/23/22 09:15 MCH 32 pg (28-32) 03/23/22 09:15 MCHC 35 % (32-34) H 03/23/22 09:15 RDW 13.2 % (13.2-15.2) 03/23/22 09:15 Plt Count 94 K/mm3 (140-440) L 03/23/22 09:15 Lymph % (Auto) 21.5 % (13.4-35.0) 03/23/22 09:15 [place] % (Auto) 6.9 % (0.0-7.3) 03/23/22 09:15 Eos % (Auto) 5.5 % (0.0-4.3) H 03/23/22 09:15 Baso % (Auto) 1.4 % (0.0-1.8) 03/23/22 09:15 Lymph # (Auto) 1.2 K/mm3 (1.2-5.4) 03/23/22 09:15 [place] # (Auto) 0.4 K/mm3 (0.0-0.8) 03/23/22 09:15 Eos # (Auto) 0.3 K/mm3 (0.0-0.4) 03/23/22 09:15 Baso # (Auto) 0.1 K/mm3 (0.0-0.1) 03/23/22 09:15 Seg Neutrophils % 64.7 % (40.0-70.0) 03/23/22 09:15 Seg Neutrophils # 3.7 K/mm3 (1.8-7.7) 03/23/22 09:15 Sodium 139 mmol/L (137-145) 03/23/22 09:15 Potassium 3.7 mmol/L (3.6-5.0) 03/23/22 09:15 Chloride 100.6 mmol/L (98-107) 03/23/22 09:15 Carbon Dioxide 25 mmol/L (22-30) 03/23/22 09:15 Anion Gap 17 mmol/L 03/23/22 09:15 BUN 15 mg/dL (9-20) 03/23/22 09:15 Creatinine 0.8 mg/dL (0.8-1.3) 03/23/22 09:15 Estimated GFR > 60 ml/min 03/23/22 09:15 BUN/Creatinine Ratio 19 % 03/23/22 09:15 Glucose 112 mg/dL (75-100) H 03/23/22 09:15 Hemoglobin A1c 5.4 % (4-6) 03/23/22 09:15 Calcium 9.5 mg/dL (8.4-10.2) 03/23/22 09:15 Total Bilirubin 1.00 mg/dL (0.1-1.2) 03/23/22 09:15 AST 29 units/L (5-40) 03/23/22 09:15 ALT 19 units/L (7-56) 03/23/22 09:15 Alkaline Phosphatase 99 units/L (35-129) 03/23/22 09:15 Total Protein 6.6 g/dL (6.3-8.2) 03/23/22 09:15 Albumin 4.8 g/dL (3.9-5) 03/23/22 09:15 Albumin/Globulin Ratio 2.7 % 03/23/22 09:15 Triglycerides 92 mg/dL (2-149) 03/23/22 09:15 Cholesterol 206 mg/dL (50-199) H 03/23/22 09:15 LDL Cholesterol Direct 136 mg/dL (50-130) H 03/23/22 09:15 HDL Cholesterol 53 mg/dL (40-59) 03/23/22 09:15 Cholesterol/HDL Ratio 3.88 % 03/23/22 09:15 TSH 1.480 mlU/mL (0.270-4.200) 03/23/22 09:15 SARS-CoV-2 (PCR) Positive (Negative) A 03/31/22 12:20 Kaufman/IV: Voiding Method Toilet Active Medications - Current Medications Current Medications: Generic Name Dose Route Start Last Admin Trade Name Freq PRN Reason Stop Dose Admin Albuterol 2.5 mg 03/24/22 20:00 04/02/22 09:04 Albuterol 2.5 Mg/3 Ml Nebu IH Not Given BIDRT [facility] Aspirin 81 mg 03/23/22 12:00 04/02/22 11:38 Aspirin Ec 81 Mg Tab PO 81 mg QDAY [facility] Administration Atorvastatin Calcium 40 mg 03/23/22 22:00 04/01/22 22:00 Atorvastatin 40 Mg Tab PO Not Given QHS [facility] Cholecalciferol 2,000 unit 03/23/22 12:00 04/02/22 11:38 Cholecalciferol (Vit D3) 1000 Unit (25 Mcg) Tab PO Not Given QDAY [facility] Divalproex Sodium 500 mg 04/01/22 22:00 04/02/22 11:[address] 500 Mg Tab PO Not Given BID [facility] Fluticasone Propionate 50 mcg 03/23/22 12:00 04/02/22 11:39 Fluticasone Propionate Nasal [place] 16 Gm NS Not Given QDAY [facility] Haloperidol 5 mg 03/29/22 22:00 04/02/22 11:38 Haloperidol 5 Mg Tab PO Not Given BID [facility] Haloperidol Lactate 5 mg 03/29/22 22:00 04/02/22 12:05 Haloperidol Lactate 5 Mg/1 Ml Inj IM 5 mg BID [facility] Administration Mirtazapine 15 mg 04/01/22 22:00 04/01/22 21:57 Mirtazapine 15 Mg Tab PO Not Given QHS [facility] Miscellaneous Medication 0.5 mg 03/23/22 11:15 Varenicline Tartrate [Varenicline Tartrate] PO DAILY [facility] Multivitamins/Minerals 1 each 03/23/22 12:00 04/02/22 11:38 Multivitamins,Ther W-Minerals Tab PO 1 each QDAY [facility] Administration Tiotropium [place] 1 puff 03/23/22 12:00 04/02/22 09:05 Tiotropium 18 Mcg Cap Inhalation IH Not Given QDAY [facility] Ziprasidone 10 mg 03/27/22 12:00 Ziprasidone Mesylate 20 Mg Vial IM Q4H PRN Agitation Nutrition/Malnutrition Assess - Dietary Evaluation Nutrition/Malnutrition Findings: Nutrition Notes Start: 03/23/22 14:03 Freq: Status: Active Protocol: Document 03/23/22 14:03 FARIBA (Rec: 03/23/22 14:19 FARIBA [id number]) Nutrition Notes Need for Assessment generated from: Low BMI Initial or Follow up Assessment Current Diagnosis Hyperlipidemia Other Pertinent Diagnosis Dementia w/Behavioral Disturbance. Current Diet Regular Diet (since B 03/23). Labs/Tests 03/23: Glu 112, HbA1c 5.4. Pertinent Medications 03/23: Vit D3, Multivitamins, others nutritionally unremarkable. Height 5 ft 6 in Weight 49.895 kg [place] Body Weight (kg) 64.54 BMI 17.7 Intake Prior to Admission Good Weight change and time frame Pt denies having loss body weight [employer]. Weight Status Underweight Subjective/Other Information RD consult for Low BMI assessment. No reports available of Pt's PO intake of meals at the time , and RN states that Pt refused his meals, according to ADL notes. Pt's Low BMI seems to correspond to a natural body composition, and not related to a sudden loss of body weight nor chronic malnutrition, since no signs of concern were mentioned in the Physical Assessment History or the Progress notes. Percent of energy/protein needs met: Prescribed Regular Diet provides for energy/protein needs (2,289 Kcal/89 g) during LOS. Burn Absent Trauma Absent GI Symptoms None Food Allergy Yes Skin Integrity/Comment Assessment WNL. 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 No Is Patient Ambulatory and/or Out of Bed Yes REE-([facility]-ambulatory/OOB) [ 1536.210 NUTR.[email or web address]] Kcal/Kg value to use for calculation 33 Approximate Energy Requirements Using 1647 kcal/Kg Calculation Used for Recommendations Kcal/kg Additional Notes Protein: 1-1.2 g/Kg IBW; 65-78 g/day. Fluids: 1 ml/Kcal, or as per MD. Nutrition Intervention Change Diet Order: Continue Regular Diet. Revisit per MD consult or patient Sign Off request: Additional Comments Continue monitoring food tolerance, %PO intake of meals , and BM.
--- NOTE | 2022-04-02 15:08 | Progress Note ---
Subjective Date of service: 04/02/22 Principal diagnosis: Delusional Disorder Subjective Comment: 04/02: The patient was seen today. Patient is not oriented to place. He continues to have delusions and does not follow directions. Per nurse, the patient is noncompliant with medications. He is agitated and continues to require in-patient treatment. 04/01: The patient was seen today. Patient is not oriented to place. He continues to have delusions and does not follow directions. Per nurse, the patient is noncompliant with medications. He is agitated and continues to require in-patient treatment. Plan: Depakote increased to 500mg bid and Remeron increased to 15mg qhs 03/31:The patient was seen today. The patient continues to be confused and tangential. Unable to assess SI/HI/AVHs. No changes made today. 03/30: The patient was seen today. He continues to be confused and paranoid. Per nurse, " the patient became more anxious and restless as the evening progressed. He presents as paranoid. Patient was encouraged to take a shower and he threatened to tear it down if staff did not turn it off. He denies si/hi/ah/vh but patient is actively delusional. His appetite is fair and he was medication compliant.Overnight the patient was awake often. He came out of his room and was confused. He was trying to go into his peers rooms because he thought their rooms were his even though his name is on the door. He was encouraged to try to rest and would become irritable by that encouragement. He slept a total of 5 hours." Start Remeron 7.5mg po QHS. 03/29:The patient was seen today. He present with flat affect and talking to himself " I'm waiting on my dog." Increase Haldol to 5mg po or IM BID 03/28: The patient was seen today. He is alert and oriented x2. He continues to be easily irritable and confused " I'm looking for Gayla and my dog." Will increase Zyprexa to 5mg po QHS. 03/27:The patient was seen today. The patient is confused and easily irritated. Will start Depakote DR. 125mg po BID 03/26:The patient was seen today. He continues to be circumstantial. He states sleep is good. He denies any current suicidal/homicidal ideation. Increase Zyprexa to 2.5mg po BID. 03/25:The patient was seen on the hallway. The patient seems confused but states he is doing ok. He states mood is ok and sleep was fair. Unable to assess SI/HI/AVHs. 03/24:The patient was seen today. He is confused with poor insight. He says he slept up and down all night. He thinks he's at home in his bed. I asked the patient how he was feeling, he replies, "where am I? Am I at home?" He is reaching for things not there. And asks was his dog in the room. Will start low dose Olanzapine to treat delusions and hallucinations. Diagnoses: Dementia with behavioral disturbances Treatment Plan: Patient admitted for inpatient psychiatric evaluation, medication adjustment and close monitoring The patient's behavior, mood, sleep and appetite will be closely monitored. Patient enrolled in individual and group therapeutic sessions and encouraged to attend. Patient provided with a safe and structured environment. Patient's physical health needs will be addressed by the Hospitalist. Hospitalist Consulted Labs including CBC, CMP, Lipid profile and Hemoglobin A1C levels ordered for baseline reference Social Assessment will be completed and the Ring Maker will work with patient and family to ensure a suitable and safe disposition Medication adjustment will be made as clinically indicated Estimated days: 7 Medications and Allergies Allergies Allergy/AdvReac Type Severity Reaction Status Date / Time onion Allergy Unknown Verified 03/27/22 10:21 Home Medications Medication Instructions Recorded Confirmed Last Taken Type Albuterol Sulfate [Proair 90 mcg IH Q4HR 03/23/22 03/23/22 Unknown History Digihaler] Aspirin EC [Halfprin EC] 81 mg PO QDAY 03/23/22 03/23/22 Unknown History Cholecalciferol Vit D3 [Vitamin D3 2,000 unit PO QDAY 03/23/22 03/23/22 Unknown History 1,000 UNIT TAB] Fluticasone [Flonase] 1 spray NS QDAY 03/23/22 03/23/22 Unknown History Multivit-Min/FA/Lycopen/Lutein 1 each PO DAILY 03/23/22 03/23/22 Unknown History [Abc Plus Tablet] Tiotropium [Spiriva] 18 mcg IH QDAY 03/23/22 03/23/22 Unknown History Varenicline Tartrate 0.5 mg PO DAILY 03/23/22 03/23/22 Unknown History Active Meds: Active Medications Albuterol (Albuterol 2.5 Mg/3 Ml Nebu) 2.5 mg IH BIDRT [facility] Last Admin: 04/02/22 09:04 Dose: Not Given Aspirin (Aspirin Ec 81 Mg Tab) 81 mg PO QDAY [facility] Last Admin: 04/02/22 11:38 Dose: 81 mg Atorvastatin Calcium (Atorvastatin 40 Mg Tab) 40 mg PO QHS [facility] Last Admin: 04/01/22 22:00 Dose: Not Given Cholecalciferol (Cholecalciferol (Vit D3) 1000 Unit (25 Mcg) Tab) 2,000 unit PO QDAY [facility] Last Admin: 04/02/22 11:38 Dose: Not Given Divalproex Sodium (Divalproex Dr 500 Mg Tab) 500 mg PO BID [facility] Last Admin: 04/02/22 11:38 Dose: Not Given Fluticasone Propionate (Fluticasone Propionate Nasal [place] 16 Gm) 50 mcg NS QDAY [facility] Last Admin: 04/02/22 11:39 Dose: Not Given Haloperidol (Haloperidol 5 Mg Tab) 5 mg PO BID [facility] Last Admin: 04/02/22 11:38 Dose: Not Given Haloperidol Lactate (Haloperidol Lactate 5 Mg/1 Ml Inj) 5 mg IM BID [facility] Last Admin: 04/02/22 12:05 Dose: 5 mg Mirtazapine (Mirtazapine 15 Mg Tab) 15 mg PO QHS [facility] Last Admin: 04/01/22 21:57 Dose: Not Given Miscellaneous Medication (Varenicline Tartrate [Varenicline Tartrate]) 0.5 mg PO DAILY [facility] Multivitamins/Minerals (Multivitamins,Ther W-Minerals Tab) 1 each PO QDAY [facility] Last Admin: 04/02/22 11:38 Dose: 1 each Tiotropium [place] (Tiotropium 18 Mcg Cap Inhalation) 1 puff IH QDAY [facility] Last Admin: 04/02/22 09:05 Dose: Not Given Ziprasidone (Ziprasidone Mesylate 20 Mg Vial) 10 mg IM Q4H PRN PRN Reason: Agitation Results - Results Labs/Vitals: Laboratory Last Values WBC 5.7 K/mm3 (4.5-11.0) 03/23/22 09:15 RBC 4.99 M/mm3 (3.65-5.03) 03/23/22 09:15 Hgb 15.8 gm/dl (11.8-15.2) H 03/23/22 09:15 Hct 45.3 % (35.5-45.6) 03/23/22 09:15 MCV 91 fl (84-94) 03/23/22 09:15 MCH 32 pg (28-32) 03/23/22 09:15 MCHC 35 % (32-34) H 03/23/22 09:15 RDW 13.2 % (13.2-15.2) 03/23/22 09:15 Plt Count 94 K/mm3 (140-440) L 03/23/22 09:15 Lymph % (Auto) 21.5 % (13.4-35.0) 03/23/22 09:15 [place] % (Auto) 6.9 % (0.0-7.3) 03/23/22 09:15 Eos % (Auto) 5.5 % (0.0-4.3) H 03/23/22 09:15 Baso % (Auto) 1.4 % (0.0-1.8) 03/23/22 09:15 Lymph # (Auto) 1.2 K/mm3 (1.2-5.4) 03/23/22 09:15 [place] # (Auto) 0.4 K/mm3 (0.0-0.8) 03/23/22 09:15 Eos # (Auto) 0.3 K/mm3 (0.0-0.4) 03/23/22 09:15 Baso # (Auto) 0.1 K/mm3 (0.0-0.1) 03/23/22 09:15 Seg Neutrophils % 64.7 % (40.0-70.0) 03/23/22 09:15 Seg Neutrophils # 3.7 K/mm3 (1.8-7.7) 03/23/22 09:15 Sodium 139 mmol/L (137-145) 03/23/22 09:15 Potassium 3.7 mmol/L (3.6-5.0) 03/23/22 09:15 Chloride 100.6 mmol/L (98-107) 03/23/22 09:15 Carbon Dioxide 25 mmol/L (22-30) 03/23/22 09:15 Anion Gap 17 mmol/L 03/23/22 09:15 BUN 15 mg/dL (9-20) 03/23/22 09:15 Creatinine 0.8 mg/dL (0.8-1.3) 03/23/22 09:15 Estimated GFR > 60 ml/min 03/23/22 09:15 BUN/Creatinine Ratio 19 % 03/23/22 09:15 Glucose 112 mg/dL (75-100) H 03/23/22 09:15 Hemoglobin A1c 5.4 % (4-6) 03/23/22 09:15 Calcium 9.5 mg/dL (8.4-10.2) 03/23/22 09:15 Total Bilirubin 1.00 mg/dL (0.1-1.2) 03/23/22 09:15 AST 29 units/L (5-40) 03/23/22 09:15 ALT 19 units/L (7-56) 03/23/22 09:15 Alkaline Phosphatase 99 units/L (35-129) 03/23/22 09:15 Total Protein 6.6 g/dL (6.3-8.2) 03/23/22 09:15 Albumin 4.8 g/dL (3.9-5) 03/23/22 09:15 Albumin/Globulin Ratio 2.7 % 03/23/22 09:15 Triglycerides 92 mg/dL (2-149) 03/23/22 09:15 Cholesterol 206 mg/dL (50-199) H 03/23/22 09:15 LDL Cholesterol Direct 136 mg/dL (50-130) H 03/23/22 09:15 HDL Cholesterol 53 mg/dL (40-59) 03/23/22 09:15 Cholesterol/HDL Ratio 3.88 % 03/23/22 09:15 TSH 1.480 mlU/mL (0.270-4.200) 03/23/22 09:15 SARS-CoV-2 (PCR) Positive (Negative) A 03/31/22 12:20 Last Vital Signs Temp 98.4 F 04/01/22 20:25 Pulse 93 H 04/02/22 09:59 Resp 18 04/02/22 09:59 BP 109/62 04/02/22 09:59 Pulse Ox 98 04/02/22 09:59
[2022-04-02] MEDS: MIRTAZAPINE 15 MG TAB PO SCH ×2 (21:11→21:40)
--- NOTE | 2022-04-03 08:47 | Progress Note ---
Subjective Date of service: 04/03/22 Principal diagnosis: Delusional Disorder Subjective Comment: 04/03: The patient was seen today. He continues to have delusions, agitated, disruptive and does not follow directions. Per Nursing note: pt is confused, disorganized, not compliant with covid-19 pr otocol, he is always standing in the hallway, paranoid, refused snack and po medication, IM given, slept through the night, no distress noted, will continue to monitor for safety. Plan: Continue current meds. Will check Valproic acid level on 04/08 04/02: The patient was seen today. Patient is not oriented to place. He continues to have delusions and does not follow directions. Per nurse, the patient is noncompliant with medications. He is agitated and continues to require in-patient treatment. 04/01: The patient was seen today. Patient is not oriented to place. He continues to have delusions and does not follow directions. Per nurse, the patient is noncompliant with medications. He is agitated and continues to require in-patient treatment. Plan: Depakote increased to 500mg bid and Remeron increased to 15mg qhs 03/31:The patient was seen today. The patient continues to be confused and tangential. Unable to assess SI/HI/AVHs. No changes made today. 03/30: The patient was seen today. He continues to be confused and paranoid. Per nurse, " the patient became more anxious and restless as the evening progressed. He presents as paranoid. Patient was encouraged to take a shower and he threatened to tear it down if staff did not turn it off. He denies si/hi/ah/vh but patient is actively delusional. His appetite is fair and he was medication compliant.Overnight the patient was awake often. He came out of his room and was confused. He was trying to go into his peers rooms because he thought their rooms were his even though his name is on the door. He was encouraged to try to rest and would become irritable by that encouragement. He slept a total of 5 hours." Start Remeron 7.5mg po QHS. 03/29:The patient was seen today. He present with flat affect and talking to himself " I'm waiting on my dog." Increase Haldol to 5mg po or IM BID 03/28: The patient was seen today. He is alert and oriented x2. He continues to be easily irritable and confused " I'm looking for Gayla and my dog." Will increase Zyprexa to 5mg po QHS. 03/27:The patient was seen today. The patient is confused and easily irritated. Will start Depakote DR. 125mg po BID 03/26:The patient was seen today. He continues to be circumstantial. He states sleep is good. He denies any current suicidal/homicidal ideation. Increase Zyprexa to 2.5mg po BID. 03/25:The patient was seen on the hallway. The patient seems confused but states he is doing ok. He states mood is ok and sleep was fair. Unable to assess SI/HI/AVHs. 03/24:The patient was seen today. He is confused with poor insight. He says he slept up and down all night. He thinks he's at home in his bed. I asked the patient how he was feeling, he replies, "where am I? Am I at home?" He is reac alf for things not there. And asks was his dog in the room. Will start low dose Olanzapine to treat delusions and hallucinations. Diagnoses: Dementia with behavioral disturbances Treatment Plan: Patient admitted for inpatient psychiatric evaluation, medication adjustment and close monitoring The patient's behavior, mood, sleep and appetite will be closely monitored. Patient enrolled in individual and group therapeutic sessions and encouraged to attend. Patient provided with a safe and structured environment. Patient's physical health needs will be addressed by the Hospitalist. Hospitalist Consulted Social Assessment will be completed and the New Car Inspector will work with patient and family to ensure a suitable and safe disposition Medication adjustment will be made as clinically indicated Estimated days: 6 Medications and Allergies Allergies Allergy/AdvReac Type Severity Reaction Status Date / Time onion Allergy Unknown Verified 03/27/22 10:21 Home Medications Medication Instructions Recorded Confirmed Last Taken Type Albuterol Sulfate [Proair 90 mcg IH Q4HR 03/23/22 03/23/22 Unknown History Digihaler] Aspirin EC [Halfprin EC] 81 mg PO QDAY 03/23/22 03/23/22 Unknown History Cholecalciferol Vit D3 [Vitamin D3 2,000 unit PO QDAY 03/23/22 03/23/22 Unknown History 1,000 UNIT TAB] Fluticasone [Flonase] 1 spray NS QDAY 03/23/22 03/23/22 Unknown History Multivit-Min/FA/Lycopen/Lutein 1 each PO DAILY 03/23/22 03/23/22 Unknown History [Abc Plus Tablet] Tiotropium [Spiriva] 18 mcg IH QDAY 03/23/22 03/23/22 Unknown History Varenicline Tartrate 0.5 mg PO DAILY 03/23/22 03/23/22 Unknown History Active Meds: Active Medications Albuterol (Albuterol 2.5 Mg/3 Ml Nebu) 2.5 mg IH BIDRT [facility] Last Admin: 04/02/22 22:19 Dose: Not Given Aspirin (Aspirin Ec 81 Mg Tab) 81 mg PO QDAY [facility] Last Admin: 04/02/22 11:38 Dose: 81 mg Atorvastatin Calcium (Atorvastatin 40 Mg Tab) 40 mg PO QHS [facility] Last Admin: 04/02/22 21:40 Dose: Not Given Cholecalciferol (Cholecalciferol (Vit D3) 1000 Unit (25 Mcg) Tab) 2,000 unit PO QDAY [facility] Last Admin: 04/02/22 11:38 Dose: Not Given Divalproex Sodium (Divalproex Dr 500 Mg Tab) 500 mg PO BID [facility] Last Admin: 04/02/22 21:39 Dose: Not Given Fluticasone Propionate (Fluticasone Propionate Nasal [place] 16 Gm) 50 mcg NS QDAY [facility] Last Admin: 04/02/22 11:39 Dose: Not Given Haloperidol (Haloperidol 5 Mg Tab) 5 mg PO BID [facility] Last Admin: 04/02/22 21:40 Dose: Not Given Haloperidol Lactate (Haloperidol Lactate 5 Mg/1 Ml Inj) 5 mg IM BID [facility] Last Admin: 04/02/22 21:18 Dose: 5 mg Mirtazapine (Mirtazapine 15 Mg Tab) 15 mg PO QHS [facility] Last Admin: 04/02/22 21:40 Dose: Not Given Miscellaneous Medication (Varenicline Tartrate [Varenicline Tartrate]) 0.5 mg PO DAILY [facility] Multivitamins/Minerals (Multivitamins,Ther W-Minerals Tab) 1 each PO QDAY [facility] Last Admin: 04/02/22 11:38 Dose: 1 each Tiotropium [place] (Tiotropium 18 Mcg Cap Inhalation) 1 puff IH QDAY [facility] Last Admin: 04/02/22 09:05 Dose: Not Given Ziprasidone (Ziprasidone Mesylate 20 Mg Vial) 10 mg IM Q4H PRN PRN Reason: Agitation Results - Results Labs/Vitals: Laboratory Last Values WBC 5.7 K/mm3 (4.5-11.0) 03/23/22 09:15 RBC 4.99 M/mm3 (3.65-5.03) 03/23/22 09:15 Hgb 15.8 gm/dl (11.8-15.2) H 03/23/22 09:15 Hct 45.3 % (35.5-45.6) 03/23/22 09:15 MCV 91 fl (84-94) 03/23/22 09:15 MCH 32 pg (28-32) 03/23/22 09:15 MCHC 35 % (32-34) H 03/23/22 09:15 RDW 13.2 % (13.2-15.2) 03/23/22 09:15 Plt Count 94 K/mm3 (140-440) L 03/23/22 09:15 Lymph % (Auto) 21.5 % (13.4-35.0) 03/23/22 09:15 [place] % (Auto) 6.9 % (0.0-7.3) 03/23/22 09:15 Eos % (Auto) 5.5 % (0.0-4.3) H 03/23/22 09:15 Baso % (Auto) 1.4 % (0.0-1.8) 03/23/22 09:15 Lymph # (Auto) 1.2 K/mm3 (1.2-5.4) 03/23/22 09:15 [place] # (Auto) 0.4 K/mm3 (0.0-0.8) 03/23/22 09:15 Eos # (Auto) 0.3 K/mm3 (0.0-0.4) 03/23/22 09:15 Baso # (Auto) 0.1 K/mm3 (0.0-0.1) 03/23/22 09:15 Seg Neutrophils % 64.7 % (40.0-70.0) 03/23/22 09:15 Seg Neutrophils # 3.7 K/mm3 (1.8-7.7) 03/23/22 09:15 Sodium 139 mmol/L (137-145) 03/23/22 09:15 Potassium 3.7 mmol/L (3.6-5.0) 03/23/22 09:15 Chloride 100.6 mmol/L (98-107) 03/23/22 09:15 Carbon Dioxide 25 mmol/L (22-30) 03/23/22 09:15 Anion Gap 17 mmol/L 03/23/22 09:15 BUN 15 mg/dL (9-20) 03/23/22 09:15 Creatinine 0.8 mg/dL (0.8-1.3) 03/23/22 09:15 Estimated GFR > 60 ml/min 03/23/22 09:15 BUN/Creatinine Ratio 19 % 03/23/22 09:15 Glucose 112 mg/dL (75-100) H 03/23/22 09:15 Hemoglobin A1c 5.4 % (4-6) 03/23/22 09:15 Calcium 9.5 mg/dL (8.4-10.2) 03/23/22 09:15 Total Bilirubin 1.00 mg/dL (0.1-1.2) 03/23/22 09:15 AST 29 units/L (5-40) 03/23/22 09:15 ALT 19 units/L (7-56) 03/23/22 09:15 Alkaline Phosphatase 99 units/L (35-129) 03/23/22 09:15 Total Protein 6.6 g/dL (6.3-8.2) 03/23/22 09:15 Albumin 4.8 g/dL (3.9-5) 03/23/22 09:15 Albumin/Globulin Ratio 2.7 % 03/23/22 09:15 Triglycerides 92 mg/dL (2-149) 03/23/22 09:15 Cholesterol 206 mg/dL (50-199) H 03/23/22 09:15 LDL Cholesterol Direct 136 mg/dL (50-130) H 03/23/22 09:15 HDL Cholesterol 53 mg/dL (40-59) 03/23/22 09:15 Cholesterol/HDL Ratio 3.88 % 03/23/22 09:15 TSH 1.480 mlU/mL (0.270-4.200) 03/23/22 09:15 SARS-CoV-2 (PCR) Positive (Negative) A 03/31/22 12:20 Last Vital Signs Temp 97.4 F L 04/02/22 19:59 Pulse 96 H 04/02/22 19:59 Resp 16 04/02/22 19:59 BP 122/73 04/02/22 19:59 Pulse Ox 83 L 04/02/22 19:59
[2022-04-03] MEDS ORDERED: LORazepam 2 MG/ML VIAL IM PRN (08:48)
[2022-04-03] MEDS: ALBUTEROL 2.5 MG/3 ML NEBU IH SCH (09:19)
[2022-04-03] MEDS: HALOPERIDOL 5 MG TAB PO SCH ×2 (09:19→22:01)
[2022-04-03] MEDS: DIVALPROEX DR 500 MG TAB PO SCH ×2 (09:19→22:01)
[2022-04-03] MEDS: FLUTICASONE PROPIONATE NASAL SPRAY 16 GM NS SCH (09:19)
[2022-04-03] MEDS: ASPIRIN EC 81 MG TAB PO SCH ×2 (09:23→13:24)
[2022-04-03] MEDS: TIOTROPIUM 18 MCG CAP INHALATION IH SCH (09:24)
[2022-04-03] MEDS: MULTIVITAMINS,THER W-MINERALS TAB PO SCH ×2 (09:24→13:24)
[2022-04-03] MEDS: CHOLECALCIFEROL (VIT D3) 1000 UNIT (25 mcg) TAB PO SCH ×2 (09:24→13:24)
[2022-04-03] MEDS: HALOPERIDOL LACTATE 5 MG/1 ML INJ IM SCH ×2 (09:26→22:16)
--- NOTE | 2022-04-03 10:07 | Progress Note ---
Assessment and Plan - Patient Problems (1) Vascular dementia with behavioral disturbance Current Visit: Yes Status: Acute Plan to address problem: Verbal prompting, verbal redirection, benzodiazepine therapy as clinically indicated. (2) Cerebral atherosclerosis Current Visit: Yes Status: Acute Plan to address problem: Risk factor reduction, antiplatelet therapy as clinically indicated. (3) Hypertension Current Visit: Yes Status: Acute Qualifiers: Hypertension type: primary hypertension Qualified Code(s): I10 - Essential (primary) hypertension Plan to address problem: Monitor blood pressure every shift, continue medical management (4) Malnutrition Current Visit: Yes Status: Acute Qualifiers: Protein-calorie malnutrition severity: moderate Plan to address problem: Increase protein intake, dietary supplementation. (5) Advance care planning Current Visit: Yes Status: Acute Plan to address problem: Disease education done, care plan discussed, diagnoses discussed, prognosis discussed, patient is full code, +30 minutes. (6) Preventative health care Current Visit: Yes Status: Acute Plan to address problem: Patient counseled regarding increase protein intake, outpatient follow-up with primary care physician for all age and risk factor appropriate screening test. (7) Nicotine dependence Current Visit: Yes Status: Acute Qualifiers: Nicotine product type: cigarettes Plan to address problem: Patient counseled regarding smoking cessation, behavior change counseling, +15 minutes. Supportive care. History Interval history: 76 YO Male Vascular Dementia with Behavioral Disturbance, Cerebral Atherosclerosis, HLD, COPD, Nicotine Dependence admitted to [facility] psych unit for psychiatric stabilization. Consult placed by Dr. Rich for medical management. Patient seen and evaluated in the recreation room. Patient resting comfortably. No reported nursing events. Patient exhibits diminished cognition. Patient remains at baseline level of cognition and function. Hospitalist Physical - Constitutional Vitals: Temp Pulse Resp BP Pulse Ox 97.4 F L 96 H 16 122/73 83 L 04/02/22 19:59 04/02/22 19:59 04/02/22 19:59 04/02/22 19:59 04/02/22 19:59 General appearance: Present: no acute distress, well-nourished - EENT Eyes: Present: PERRL ENT: hearing decreased - Neck Neck: Present: supple - Respiratory Respiratory effort: normal Respiratory: bilateral: diminished - Cardiovascular Rhythm: regular Heart Sounds: Present: S1 & S2 - Extremities Extremities: no ischemia Peripheral Pulses: within normal limits - Abdominal General gastrointestinal: soft, non-tender, non-distended - Integumentary Integumentary: Present: clear, dry - Psychiatric Psychiatric: cooperative - Neurologic Neurologic: CNII-XII intact Results - Labs CBC & Chem 7: 03/23/22 09:15 03/23/22 09:15 Labs: Laboratory Last Values WBC 5.7 K/mm3 (4.5-11.0) 03/23/22 09:15 RBC 4.99 M/mm3 (3.65-5.03) 03/23/22 09:15 Hgb 15.8 gm/dl (11.8-15.2) H 03/23/22 09:15 Hct 45.3 % (35.5-45.6) 03/23/22 09:15 MCV 91 fl (84-94) 03/23/22 09:15 MCH 32 pg (28-32) 03/23/22 09:15 MCHC 35 % (32-34) H 03/23/22 09:15 RDW 13.2 % (13.2-15.2) 03/23/22 09:15 Plt Count 94 K/mm3 (140-440) L 03/23/22 09:15 Lymph % (Auto) 21.5 % (13.4-35.0) 03/23/22 09:15 [place] % (Auto) 6.9 % (0.0-7.3) 03/23/22 09:15 Eos % (Auto) 5.5 % (0.0-4.3) H 03/23/22 09:15 Baso % (Auto) 1.4 % (0.0-1.8) 03/23/22 09:15 Lymph # (Auto) 1.2 K/mm3 (1.2-5.4) 03/23/22 09:15 [place] # (Auto) 0.4 K/mm3 (0.0-0.8) 03/23/22 09:15 Eos # (Auto) 0.3 K/mm3 (0.0-0.4) 03/23/22 09:15 Baso # (Auto) 0.1 K/mm3 (0.0-0.1) 03/23/22 09:15 Seg Neutrophils % 64.7 % (40.0-70.0) 03/23/22 09:15 Seg Neutrophils # 3.7 K/mm3 (1.8-7.7) 03/23/22 09:15 Sodium 139 mmol/L (137-145) 03/23/22 09:15 Potassium 3.7 mmol/L (3.6-5.0) 03/23/22 09:15 Chloride 100.6 mmol/L (98-107) 03/23/22 09:15 Carbon Dioxide 25 mmol/L (22-30) 03/23/22 09:15 Anion Gap 17 mmol/L 03/23/22 09:15 BUN 15 mg/dL (9-20) 03/23/22 09:15 Creatinine 0.8 mg/dL (0.8-1.3) 03/23/22 09:15 Estimated GFR > 60 ml/min 03/23/22 09:15 BUN/Creatinine Ratio 19 % 03/23/22 09:15 Glucose 112 mg/dL (75-100) H 03/23/22 09:15 Hemoglobin A1c 5.4 % (4-6) 03/23/22 09:15 Calcium 9.5 mg/dL (8.4-10.2) 03/23/22 09:15 Total Bilirubin 1.00 mg/dL (0.1-1.2) 03/23/22 09:15 AST 29 units/L (5-40) 03/23/22 09:15 ALT 19 units/L (7-56) 03/23/22 09:15 Alkaline Phosphatase 99 units/L (35-129) 03/23/22 09:15 Total Protein 6.6 g/dL (6.3-8.2) 03/23/22 09:15 Albumin 4.8 g/dL (3.9-5) 03/23/22 09:15 Albumin/Globulin Ratio 2.7 % 03/23/22 09:15 Triglycerides 92 mg/dL (2-149) 03/23/22 09:15 Cholesterol 206 mg/dL (50-199) H 03/23/22 09:15 LDL Cholesterol Direct 136 mg/dL (50-130) H 03/23/22 09:15 HDL Cholesterol 53 mg/dL (40-59) 03/23/22 09:15 Cholesterol/HDL Ratio 3.88 % 03/23/22 09:15 TSH 1.480 mlU/mL (0.270-4.200) 03/23/22 09:15 SARS-CoV-2 (PCR) Positive (Negative) A 03/31/22 12:20 [place]/IV: Voiding Method Toilet Active Medications - Current Medications Current Medications: Generic Name Dose Route Start Last Admin Trade Name Freq PRN Reason Stop Dose Admin Albuterol 2.5 mg 03/24/22 20:00 04/03/22 09:19 Albuterol 2.5 Mg/3 Ml Nebu IH Not Given BIDRT [facility] Aspirin 81 mg 03/23/22 12:00 04/03/22 09:23 Aspirin Ec 81 Mg Tab PO 81 mg QDAY [facility] Administration Atorvastatin Calcium 40 mg 03/23/22 22:00 04/02/22 21:40 Atorvastatin 40 Mg Tab PO Not Given QHS [facility] Cholecalciferol 2,000 unit 03/23/22 12:00 04/03/22 09:24 Cholecalciferol (Vit D3) 1000 Unit (25 Mcg) Tab PO 2,000 unit QDAY [facility] Administration Divalproex Sodium 500 mg 04/01/22 22:00 04/03/22 09:[address] 500 Mg Tab PO Not Given BID [facility] Fluticasone Propionate 50 mcg 03/23/22 12:00 04/03/22 09:19 Fluticasone Propionate Nasal [place] 16 Gm NS Not Given QDAY [facility] Haloperidol 5 mg 03/29/22 22:00 04/03/22 09:19 Haloperidol 5 Mg Tab PO Not Given BID [facility] Haloperidol Lactate 5 mg 03/29/22 22:00 04/03/22 09:26 Haloperidol Lactate 5 Mg/1 Ml Inj IM Not Given BID [facility] Lorazepam 1 mg 04/03/22 08:48 Lorazepam 2 Mg/Ml Vial IM Q6H PRN Agitation Mirtazapine 15 mg 04/01/22 22:00 04/02/22 21:40 Mirtazapine 15 Mg Tab PO Not Given QHS [facility] Miscellaneous Medication 0.5 mg 03/23/22 11:15 Varenicline Tartrate [Varenicline Tartrate] PO DAILY [facility] Multivitamins/Minerals 1 each 03/23/22 12:00 04/03/22 09:24 Multivitamins,Ther W-Minerals Tab PO 1 each QDAY [facility] Administration Tiotropium [place] 1 puff 03/23/22 12:00 04/03/22 09:24 Tiotropium 18 Mcg Cap Inhalation IH Not Given QDAY [facility] Nutrition/Malnutrition Assess - Dietary Evaluation Nutrition/Malnutrition Findings: Nutrition Notes Start: 03/23/22 14:03 Freq: Status: Active Protocol: Document 03/23/22 14:03 FARIBA (Rec: 03/23/22 14:19 FARIBA [email or web address]) Nutrition Notes Need for Assessment generated from: Low BMI Initial or Follow up Assessment Current Diagnosis Hyperlipidemia Other Pertinent Diagnosis Dementia w/Behavioral Disturbance. Current Diet Regular Diet (since B 03/23). Labs/Tests 03/23: Glu 112, HbA1c 5.4. Pertinent Medications 03/23: Vit D3, Multivitamins, others nutritionally unremarkable. Height 5 ft 6 in Weight 49.895 kg [place] Body Weight (kg) 64.54 BMI 17.7 Intake Prior to Admission Good Weight change and time frame Pt denies having loss body weight [employer]. Weight Status Underweight Subjective/Other Information RD consult for Low BMI assessment. No reports available of Pt's PO intake of meals at the time , and RN states that Pt refused his meals, according to ADL notes. Pt's Low BMI seems to correspond to a natural body composition, and not related to a sudden loss of body weight nor chronic malnutrition, since no signs of concern were mentioned in the Physical Assessment History or the Progress notes. Percent of energy/protein needs met: Prescribed Regular Diet provides for energy/protein needs (2,289 Kcal/89 g) during LOS. Burn Absent Trauma Absent GI Symptoms None Food Allergy Yes Skin Integrity/Comment Assessment WNL. Minimum of two criteria No Fluid Accumulation N/A Reduced Clinical Data Research Strength N/A (non-severe) Protein-Calorie Malnutrition N\A #1 Nutrition Diagnosis No nutrition diagnosis at this time Is patient on ventilator? No Is Patient Ambulatory and/or Out of Bed Yes REE-([place]-ambulatory/OOB) [ 1536.210 [id number]] Kcal/Kg value to use for calculation 33 Approximate Energy Requirements Using 1647 kcal/Kg Calculation Used for Recommendations Kcal/kg Additional Notes Protein: 1-1.2 g/Kg IBW; 65-78 g/day. Fluids: 1 ml/Kcal, or as per MD. Nutrition Intervention Change Diet Order: Continue Regular Diet. Revisit per MD consult or patient Sign Off request: Additional Comments Continue monitoring food tolerance, %PO intake of meals , and BM.
[2022-04-03] MEDS: MIRTAZAPINE 15 MG TAB PO SCH (22:07)
[2022-04-04] MEDS: ALBUTEROL 2.5 MG/3 ML NEBU IH SCH ×3 (04:24→20:41)
[2022-04-04] MEDS: TIOTROPIUM 18 MCG CAP INHALATION IH SCH (08:50)
--- NOTE | 2022-04-04 11:12 | Progress Note ---
Subjective Date of service: 04/04/22 Principal diagnosis: Delusional Disorder Subjective Comment: History of Present Illness Date of admission: 03/22/22 Reason for Admission: Danger to self, Failure of Outpatient Treatment, Severe anxiety/depression History of Present Illness: Worsening memory and hallucinations. The patient was seen today. He is confused and could not be engaged in the evaluation. He asks me how did I get in his house. He is reaching for his linen and asks me if it was his dog. I ask him how was he feeling, he states again "how did you get in my house." Progress: 04/04: The patient was seen by me today. He continues to have delusions, agitated, disruptive and does not follow directions. Per Nursing note: 1555 Pt.still on isolation and has stayed in his room all day. He is still paranoid and suspicious of food, drinks and meds, he refused all his meals, juices, water, snacks and meds. Staff tried to encourage him to eat and take his oral meds. Staff will continue to monitor. pt. Pt rested w/o incident. Remains non-compliant with food and medications. Needs constant redirection to remain as isolated d/t (+) COVID-19 status. No acute distress observed or reported. Plan: Haldol replaced with Olanzapine 5mg qhs. Will give a stat dose of Olanzapine now. Will check Valproic acid level on 04/08 04/03: The patient was seen today. He continues to have delusions, agitated, disruptive and does not follow directions. Per Nursing note: pt is confused, disorganized, not compliant with covid-19 protocol, he is always standing in the hallway, paranoid, refused snack and po medication, IM given, slept through the night, no distress noted, will continue to monitor for safety. Plan: Continue current meds. Will check Valproic acid level on 04/08 04/02: The patient was seen today. Patient is not oriented to place. He continues to have delusions and does not follow directions. Per nurse, the patient is noncompliant with medications. He is agitated and continues to require in-patient treatment. 04/01: The patient was seen today. Patient is not oriented to place. He continues to have delusions and does not follow directions. Per nurse, the patient is noncompliant with medications. He is agitated and continues to require in-patient treatment. Plan: Depakote increased to 500mg bid and Remeron increased to 15mg qhs 03/31:The patient was seen today. The patient continues to be confused and tangential. Unable to assess SI/HI/AVHs. No changes made today. 03/30: The patient was seen today. He continues to be confused and paranoid. Per nurse, " the patient became more anxious and restless as the evening progressed. He presents as paranoid. Patient was encouraged to take a shower and he threatened to tear it down if staff did not turn it off. He denies si/hi/ah/vh but patient is actively delusional. His appetite is fair and he was medication compliant.Overnight the patient was awake often. He came out of his room and was confused. He was trying to go into his peers rooms because he thought their rooms were his even though his name is on the door. He was encouraged to try to rest and would become irritable by that encouragement. He slept a total of 5 hours." Start Remeron 7.5mg po QHS. 03/29:The patient was seen today. He present with flat affect and talking to himself " I'm waiting on my dog." Increase Haldol to 5mg po or IM BID 03/28: The patient was seen today. He is alert and oriented x2. He continues to be easily irritable and confused " I'm looking for Gayla and my dog." Will increase Zyprexa to 5mg po QHS. 03/27:The patient was seen today. The patient is confused and easily irritated. Will start Depakote DR. 125mg po BID 03/26:The patient was seen today. He continues to be circumstantial. He states sleep is good. He denies any current suicidal/homicidal ideation. Increase Zyprexa to 2.5mg po BID. 03/25:The patient was seen on the hallway. The patient seems confused but states he is doing ok. He states mood is ok and sleep was fair. Unable to assess SI/HI/AVHs. 03/24:The patient was seen today. He is confused with poor insight. He says he slept up and down all night. He thinks he's at home in his bed. I asked the patient how he was feeling, he replies, "where am I? Am I at home?" He is reaching for things not there. And asks was his dog in the room. Will start low dose Olanzapine to treat delusions and hallucinations. Diagnoses: Dementia with behavioral disturbances Treatment Plan: Patient admitted for inpatient psychiatric evaluation, medication adjustment and close monitoring The patient's behavior, mood, sleep and appetite will be closely monitored. Patient enrolled in individual and group therapeutic sessions and encouraged to attend. Patient provided with a safe and structured environment. Patient's physical health needs will be addressed by the Hospitalist. Hospitalist Consulted Social Assessment will be completed and the Csr will work with patient and family to ensure a suitable and safe disposition Medication adjustment will be made as clinically indicated Estimated days: 5 Objective - Criteria for Continued Treatment Criteria for Continued Treatment: Improving Level of Functioning, Understanding Diagnosis and need for Medication, Improving Treatment / Medication Compliance, Stablizing Level of Functioning - Mental Status Mental Status: Oriented x [address] - Objective Observation Participation Level: None Reason(s) For Not Participating: Wandering Assessment and Plan - Patient Problems (1) Vascular dementia with behavioral disturbance Current Visit: Yes Status: Acute Medications and Allergies Allergies Allergy/AdvReac Type Severity Reaction Status Date / Time onion Allergy Unknown Verified 03/27/22 10:21 Home Medications Medication Instructions Recorded Confirmed Last Taken Type Albuterol Sulfate [Proair 90 mcg IH Q4HR 03/23/22 03/23/22 Unknown History Digihaler] Aspirin EC [Halfprin EC] 81 mg PO QDAY 03/23/22 03/23/22 Unknown History Cholecalciferol Vit D3 [Vitamin D3 2,000 unit PO QDAY 03/23/22 03/23/22 Unknown History 1,000 UNIT TAB] Fluticasone [Flonase] 1 spray NS QDAY 03/23/22 03/23/22 Unknown History Multivit-Min/FA/Lycopen/Lutein 1 each PO DAILY 03/23/22 03/23/22 Unknown History [Abc Plus Tablet] Tiotropium [Spiriva] 18 mcg IH QDAY 03/23/22 03/23/22 Unknown History Varenicline Tartrate 0.5 mg PO DAILY 03/23/22 03/23/22 Unknown History Active Meds: Active Medications Albuterol (Albuterol 2.5 Mg/3 Ml Nebu) 2.5 mg IH BIDRT [facility] Last Admin: 04/04/22 08:42 Dose: Not Given Aspirin (Aspirin Ec 81 Mg Tab) 81 mg PO QDAY [facility] Last Admin: 04/03/22 13:24 Dose: Not Given Atorvastatin Calcium (Atorvastatin 40 Mg Tab) 40 mg PO QHS [facility] Last Admin: 04/03/22 22:02 Dose: Not Given Cholecalciferol (Cholecalciferol (Vit D3) 1000 Unit (25 Mcg) Tab) 2,000 unit PO QDAY [facility] Last Admin: 04/03/22 13:24 Dose: Not Given Divalproex Sodium (Divalproex Dr 500 Mg Tab) 500 mg PO BID [facility] Last Admin: 04/03/22 22:01 Dose: Not Given Fluticasone Propionate (Fluticasone Propionate Nasal [place] 16 Gm) 50 mcg NS QDAY [facility] Last Admin: 04/03/22 09:19 Dose: Not Given Haloperidol (Haloperidol 5 Mg Tab) 5 mg PO BID [facility] Last Admin: 04/03/22 22:01 Dose: Not Given Haloperidol Lactate (Haloperidol Lactate 5 Mg/1 Ml Inj) 5 mg IM BID [facility] Last Admin: 04/03/22 22:16 Dose: Not Given Lorazepam (Lorazepam 2 Mg/Ml Vial) 1 mg IM Q6H PRN PRN Reason: Agitation Mirtazapine (Mirtazapine 15 Mg Tab) 15 mg PO QHS [facility] Last Admin: 04/03/22 22:07 Dose: Not Given Miscellaneous Medication (Varenicline Tartrate [Varenicline Tartrate]) 0.5 mg PO DAILY [facility] Multivitamins/Minerals (Multivitamins,Ther W-Minerals Tab) 1 each PO QDAY [facility] Last Admin: 04/03/22 13:24 Dose: Not Given Tiotropium [place] (Tiotropium 18 Mcg Cap Inhalation) 1 puff IH QDAY [facility] Last Admin: 04/04/22 08:50 Dose: 1 puff Results - Results Labs/Vitals: Laboratory Last Values WBC 5.7 K/mm3 (4.5-11.0) 03/23/22 09:15 RBC 4.99 M/mm3 (3.65-5.03) 03/23/22 09:15 Hgb 15.8 gm/dl (11.8-15.2) H 03/23/22 09:15 Hct 45.3 % (35.5-45.6) 03/23/22 09:15 MCV 91 fl (84-94) 03/23/22 09:15 MCH 32 pg (28-32) 03/23/22 09:15 MCHC 35 % (32-34) H 03/23/22 09:15 RDW 13.2 % (13.2-15.2) 03/23/22 09:15 Plt Count 94 K/mm3 (140-440) L 03/23/22 09:15 Lymph % (Auto) 21.5 % (13.4-35.0) 03/23/22 09:15 [place] % (Auto) 6.9 % (0.0-7.3) 03/23/22 09:15 Eos % (Auto) 5.5 % (0.0-4.3) H 03/23/22 09:15 Baso % (Auto) 1.4 % (0.0-1.8) 03/23/22 09:15 Lymph # (Auto) 1.2 K/mm3 (1.2-5.4) 03/23/22 09:15 [place] # (Auto) 0.4 K/mm3 (0.0-0.8) 03/23/22 09:15 Eos # (Auto) 0.3 K/mm3 (0.0-0.4) 03/23/22 09:15 Baso # (Auto) 0.1 K/mm3 (0.0-0.1) 03/23/22 09:15 Seg Neutrophils % 64.7 % (40.0-70.0) 03/23/22 09:15 Seg Neutrophils # 3.7 K/mm3 (1.8-7.7) 03/23/22 09:15 Sodium 139 mmol/L (137-145) 03/23/22 09:15 Potassium 3.7 mmol/L (3.6-5.0) 03/23/22 09:15 Chloride 100.6 mmol/L (98-107) 03/23/22 09:15 Carbon Dioxide 25 mmol/L (22-30) 03/23/22 09:15 Anion Gap 17 mmol/L 03/23/22 09:15 BUN 15 mg/dL (9-20) 03/23/22 09:15 Creatinine 0.8 mg/dL (0.8-1.3) 03/23/22 09:15 Estimated GFR > 60 ml/min 03/23/22 09:15 BUN/Creatinine Ratio 19 % 03/23/22 09:15 Glucose 112 mg/dL (75-100) H 03/23/22 09:15 Hemoglobin A1c 5.4 % (4-6) 03/23/22 09:15 Calcium 9.5 mg/dL (8.4-10.2) 03/23/22 09:15 Total Bilirubin 1.00 mg/dL (0.1-1.2) 03/23/22 09:15 AST 29 units/L (5-40) 03/23/22 09:15 ALT 19 units/L (7-56) 03/23/22 09:15 Alkaline Phosphatase 99 units/L (35-129) 03/23/22 09:15 Total Protein 6.6 g/dL (6.3-8.2) 03/23/22 09:15 Albumin 4.8 g/dL (3.9-5) 03/23/22 09:15 Albumin/Globulin Ratio 2.7 % 03/23/22 09:15 Triglycerides 92 mg/dL (2-149) 03/23/22 09:15 Cholesterol 206 mg/dL (50-199) H 03/23/22 09:15 LDL Cholesterol Direct 136 mg/dL (50-130) H 03/23/22 09:15 HDL Cholesterol 53 mg/dL (40-59) 03/23/22 09:15 Cholesterol/HDL Ratio 3.88 % 03/23/22 09:15 TSH 1.480 mlU/mL (0.270-4.200) 03/23/22 09:15 SARS-CoV-2 (PCR) Positive (Negative) A 03/31/22 12:20 Last Vital Signs Temp 97.3 F L 04/04/22 08:04 Pulse 80 04/04/22 08:50 Resp 18 04/04/22 08:50 BP 122/75 04/04/22 08:04 Pulse Ox 98 04/04/22 08:04
[2022-04-04] MEDS: DIVALPROEX DR 500 MG TAB PO SCH ×2 (11:25→21:56)
[2022-04-04] MEDS: HALOPERIDOL LACTATE 5 MG/1 ML INJ IM SCH ×2 (11:25→21:56)
[2022-04-04] MEDS ORDERED: OLANzapine ZYDIS 5 MG TAB PO ONE (11:30)
[2022-04-04] MEDS: MULTIVITAMINS,THER W-MINERALS TAB PO SCH (12:19)
[2022-04-04] MEDS: FLUTICASONE PROPIONATE NASAL SPRAY 16 GM NS SCH (12:19)
[2022-04-04] MEDS: HALOPERIDOL 5 MG TAB PO SCH (12:19)
[2022-04-04] MEDS: ASPIRIN EC 81 MG TAB PO SCH (12:19)
[2022-04-04] MEDS: CHOLECALCIFEROL (VIT D3) 1000 UNIT (25 mcg) TAB PO SCH (12:20)
[2022-04-04] MEDS: OLANzapine ZYDIS 5 MG TAB PO SCH (21:56)
[2022-04-04] MEDS: MIRTAZAPINE 15 MG TAB PO SCH (21:56)
[2022-04-05] MEDS: HALOPERIDOL LACTATE 5 MG/1 ML INJ IM SCH ×2 (09:40→21:36)
[2022-04-05] MEDS: DIVALPROEX DR 500 MG TAB PO SCH ×3 (09:47→22:20)
[2022-04-05] MEDS: ASPIRIN EC 81 MG TAB PO SCH (09:47)
[2022-04-05] MEDS: FLUTICASONE PROPIONATE NASAL SPRAY 16 GM NS SCH (09:47)
[2022-04-05] MEDS: MULTIVITAMINS,THER W-MINERALS TAB PO SCH (09:47)
[2022-04-05] MEDS: CHOLECALCIFEROL (VIT D3) 1000 UNIT (25 mcg) TAB PO SCH (09:47)
[2022-04-05] MEDS: ALBUTEROL 2.5 MG/3 ML NEBU IH SCH ×3 (10:00→21:26)
--- NOTE | 2022-04-05 17:38 | Progress Note ---
Subjective Date of service: 04/05/22 Principal diagnosis: Delusional Disorder Subjective Comment: The patient was seen today. He is confused. He is trying to feed himself, but is constantly reaching for his spoon. He becomes a little irritable when I point the spoon out to him. REVIEW OF SYSTEMS MENTAL STATUS EXAMINATION Diagnoses: Dementia with behavioral disturbances Treatment Plan: Patient admitted for inpatient psychiatric evaluation, medication adjustment and close monitoring The patient's behavior, mood, sleep and appetite will be closely monitored. Patient enrolled in individual and group therapeutic sessions and encouraged to attend. Patient provided with a safe and structured environment. Patient's physical health needs will be addressed by the Hospitalist. Hospital ist Consulted Labs including CBC, CMP, Lipid profile and Hemoglobin A1C levels ordered for baseline reference Social Assessment will be completed and the Basic Sciences Dean will work with patient and family to ensure a suitable and safe disposition Medication adjustment will be made as clinically indicated Continue meds Usual Wellness Orthodoxy/Preservation: - Start Trazodone 50 mg po QHS & 50 mg po QHS PRN between 10 PM & 2 AM for insomnia - Start Melatonin 5 mg po QHS to promote circadian rhythm The patient agreed on the treatment plan, understood the risk, benefit, alternative treatment, potential consequence of no treatment, and gave informed consent. Estimated days: 7 Medications and Allergies Allergies Allergy/AdvReac Type Severity Reaction Status Date / Time onion Allergy Unknown Verified 03/27/22 10:21 Home Medications Medication Instructions Recorded Confirmed Last Taken Type Albuterol Sulfate [Proair 90 mcg IH Q4HR 03/23/22 03/23/22 Unknown History Digihaler] Aspirin EC [Halfprin EC] 81 mg PO QDAY 03/23/22 03/23/22 Unknown History Cholecalciferol Vit D3 [Vitamin D3 2,000 unit PO QDAY 03/23/22 03/23/22 Unknown History 1,000 UNIT TAB] Fluticasone [Flonase] 1 spray NS QDAY 03/23/22 03/23/22 Unknown History Multivit-Min/FA/Lycopen/Lutein 1 each PO DAILY 03/23/22 03/23/22 Unknown History [Abc Plus Tablet] Tiotropium [Spiriva] 18 mcg IH QDAY 03/23/22 03/23/22 Unknown History Varenicline Tartrate 0.5 mg PO DAILY 03/23/22 03/23/22 Unknown History Active Meds: Active Medications Albuterol (Albuterol 2.5 Mg/3 Ml Nebu) 2.5 mg IH BIDRT [facility] Last Admin: 04/04/22 20:41 Dose: Not Given Aspirin (Aspirin Ec 81 Mg Tab) 81 mg PO QDAY [facility] Last Admin: 04/05/22 09:47 Dose: Not Given Atorvastatin Calcium (Atorvastatin 40 Mg Tab) 40 mg PO QHS [facility] Last Admin: 04/04/22 21:56 Dose: Not Given Cholecalciferol (Cholecalciferol (Vit D3) 1000 Unit (25 Mcg) Tab) 2,000 unit PO QDAY [facility] Last Admin: 04/05/22 09:47 Dose: Not Given Divalproex Sodium (Divalproex Dr 500 Mg Tab) 500 mg PO BID [facility] Last Admin: 04/05/22 09:47 Dose: Not Given Fluticasone Propionate (Fluticasone Propionate Nasal [place] 16 Gm) 50 mcg NS QDAY [facility] Last Admin: 04/05/22 09:47 Dose: Not Given Haloperidol Lactate (Haloperidol Lactate 5 Mg/1 Ml Inj) 5 mg IM BID [facility] Last Admin: 04/05/22 09:40 Dose: 5 mg Lorazepam (Lorazepam 2 Mg/Ml Vial) 1 mg IM Q6H PRN PRN Reason: Agitation Mirtazapine (Mirtazapine 15 Mg Tab) 15 mg PO QHS [facility] Last Admin: 04/04/22 21:56 Dose: Not Given Multivitamins/Minerals (Multivitamins,Ther W-Minerals Tab) 1 each PO QDAY [facility] Last Admin: 04/05/22 09:47 Dose: Not Given Olanzapine (Olanzapine Zydis 5 Mg Tab) 5 mg PO QHS [facility] Last Admin: 04/04/22 21:56 Dose: Not Given Tiotropium [place] (Tiotropium 18 Mcg Cap Inhalation) 1 puff IH QDAY [facility] Last Admin: 04/04/22 08:50 Dose: 1 puff Results - Results Labs/Vitals: Laboratory Last Values WBC 5.7 K/mm3 (4.5-11.0) 03/23/22 09:15 RBC 4.99 M/mm3 (3.65-5.03) 03/23/22 09:15 Hgb 15.8 gm/dl (11.8-15.2) H 03/23/22 09:15 Hct 45.3 % (35.5-45.6) 03/23/22 09:15 MCV 91 fl (84-94) 03/23/22 09:15 MCH 32 pg (28-32) 03/23/22 09:15 MCHC 35 % (32-34) H 03/23/22 09:15 RDW 13.2 % (13.2-15.2) 03/23/22 09:15 Plt Count 94 K/mm3 (140-440) L 03/23/22 09:15 Lymph % (Auto) 21.5 % (13.4-35.0) 03/23/22 09:15 [place] % (Auto) 6.9 % (0.0-7.3) 03/23/22 09:15 Eos % (Auto) 5.5 % (0.0-4.3) H 03/23/22 09:15 Baso % (Auto) 1.4 % (0.0-1.8) 03/23/22 09:15 Lymph # (Auto) 1.2 K/mm3 (1.2-5.4) 03/23/22 09:15 [place] # (Auto) 0.4 K/mm3 (0.0-0.8) 03/23/22 09:15 Eos # (Auto) 0.3 K/mm3 (0.0-0.4) 03/23/22 09:15 Baso # (Auto) 0.1 K/mm3 (0.0-0.1) 03/23/22 09:15 Seg Neutrophils % 64.7 % (40.0-70.0) 03/23/22 09:15 Seg Neutrophils # 3.7 K/mm3 (1.8-7.7) 03/23/22 09:15 Sodium 139 mmol/L (137-145) 03/23/22 09:15 Potassium 3.7 mmol/L (3.6-5.0) 03/23/22 09:15 Chloride 100.6 mmol/L (98-107) 03/23/22 09:15 Carbon Dioxide 25 mmol/L (22-30) 03/23/22 09:15 Anion Gap 17 mmol/L 03/23/22 09:15 BUN 15 mg/dL (9-20) 03/23/22 09:15 Creatinine 0.8 mg/dL (0.8-1.3) 03/23/22 09:15 Estimated GFR > 60 ml/min 03/23/22 09:15 BUN/Creatinine Ratio 19 % 03/23/22 09:15 Glucose 112 mg/dL (75-100) H 03/23/22 09:15 Hemoglobin A1c 5.4 % (4-6) 03/23/22 09:15 Calcium 9.5 mg/dL (8.4-10.2) 03/23/22 09:15 Total Bilirubin 1.00 mg/dL (0.1-1.2) 03/23/22 09:15 AST 29 units/L (5-40) 03/23/22 09:15 ALT 19 units/L (7-56) 03/23/22 09:15 Alkaline Phosphatase 99 units/L (35-129) 03/23/22 09:15 Total Protein 6.6 g/dL (6.3-8.2) 03/23/22 09:15 Albumin 4.8 g/dL (3.9-5) 03/23/22 09:15 Albumin/Globulin Ratio 2.7 % 03/23/22 09:15 Triglycerides 92 mg/dL (2-149) 03/23/22 09:15 Cholesterol 206 mg/dL (50-199) H 03/23/22 09:15 LDL Cholesterol Direct 136 mg/dL (50-130) H 03/23/22 09:15 HDL Cholesterol 53 mg/dL (40-59) 03/23/22 09:15 Cholesterol/HDL Ratio 3.88 % 03/23/22 09:15 TSH 1.480 mlU/mL (0.270-4.200) 03/23/22 09:15 SARS-CoV-2 (PCR) Positive (Negative) A 03/31/22 12:20 Last Vital Signs Temp 98.4 F 04/04/22 20:15 Pulse 83 04/04/22 20:15 Resp 16 04/04/22 20:15 BP 133/79 04/04/22 20:15 Pulse Ox 98 04/04/22 20:15
[2022-04-05] MEDS: TIOTROPIUM 18 MCG CAP INHALATION IH SCH (21:26)
[2022-04-05] MEDS: MIRTAZAPINE 15 MG TAB PO SCH ×2 (21:34→22:22)
[2022-04-05] MEDS: OLANzapine ZYDIS 5 MG TAB PO SCH ×2 (21:35→22:23)
[2022-04-06 00:17] VITALS: BP 144/73
[2022-04-06] MEDS: TIOTROPIUM 18 MCG CAP INHALATION IH SCH (09:18)
[2022-04-06] MEDS: CHOLECALCIFEROL (VIT D3) 1000 UNIT (25 mcg) TAB PO SCH (10:03)
[2022-04-06] MEDS: DIVALPROEX DR 500 MG TAB PO SCH (10:03)
[2022-04-06] MEDS: ASPIRIN EC 81 MG TAB PO SCH (10:03)
[2022-04-06] MEDS: MULTIVITAMINS,THER W-MINERALS TAB PO SCH (10:04)
[2022-04-06] MEDS: FLUTICASONE PROPIONATE NASAL SPRAY 16 GM NS SCH (10:04)
[2022-04-06] MEDS: HALOPERIDOL LACTATE 5 MG/1 ML INJ IM SCH (10:04)
--- NOTE | 2022-04-06 10:18 | Progress Note ---
Subjective Date of service: 04/06/22 Principal diagnosis: Delusional Disorder Subjective Comment: The patient was seen today. He is lying in bed. He is confused. He is irritable. The nursing staff says the patient is paranoid, and not eating because he thinks someone is putting something in his food. The patient is positive for COVID, and will need to be placed. 04/05 The patient was seen today. He is confused. He is trying to feed himself, but is constantly reaching for his spoon. He becomes a little irritable when I point the spoon out to him. REVIEW OF SYSTEMS MENTAL STATUS EXAMINATION Diagnoses: Dementia with behavioral disturbances Treatment Plan: Patient admitted for inpatient psychiatric evaluation, medication adjustment and close monitoring The patient's behavior, mood, sleep and appetite will be closely monitored. Patient enrolled in individual and group therapeutic sessions and encouraged to attend. Patient provided with a safe and structured environment. Patient's physical health needs will be addressed by the Hospitalist. Hospitalist Consulted Labs including CBC, CMP, Lipid profile and Hemoglobin A1C levels ordered for baseline reference Social Assessment will be completed and the Health Plan Advisor will work with patient and family to ensure a suitable and safe disposition Medication adjustment will be made as clinically indicated Continue meds Usual Wellness Sabianist/Preservation: - Start Trazodone 50 mg po QHS & 50 mg po QHS PRN between 10 PM & 2 AM for insomnia - Start Melatonin 5 mg po QHS to promote circadian rhythm The patient agreed on the treatment plan, understood the risk, benefit, alternative treatment, potential consequence of no treatment, and gave informed consent. Estimated days: 7 Medications and Allergies Allergies Allergy/AdvReac Type Severity Reaction Status Date / Time onion Allergy Unknown Verified 03/27/22 10:21 Home Medications Medication Instructions Recorded Confirmed Last Taken Type Albuterol Sulfate [Proair 90 mcg IH Q4HR 03/23/22 03/23/22 Unknown History Digihaler] Aspirin EC [Halfprin EC] 81 mg PO QDAY 03/23/22 03/23/22 Unknown History Cholecalciferol Vit D3 [Vitamin D3 2,000 unit PO QDAY 03/23/22 03/23/22 Unknown History 1,000 UNIT TAB] Fluticasone [Flonase] 1 spray NS QDAY 03/23/22 03/23/22 Unknown History Multivit-Min/FA/Lycopen/Lutein 1 each PO DAILY 03/23/22 03/23/22 Unknown History [Abc Plus Tablet] Tiotropium [Spiriva] 18 mcg IH QDAY 03/23/22 03/23/22 Unknown History Varenicline Tartrate 0.5 mg PO DAILY 03/23/22 03/23/22 Unknown History Active Meds: Active Medications Albuterol (Albuterol 2.5 Mg/3 Ml Nebu) 2.5 mg IH BIDRT [facility] Last Admin: 04/05/22 21:26 Dose: Not Given Aspirin (Aspirin Ec 81 Mg Tab) 81 mg PO QDAY [facility] Last Admin: 04/06/22 10:03 Dose: Not Given Atorvastatin Calcium (Atorvastatin 40 Mg Tab) 40 mg PO QHS [facility] Last Admin: 04/05/22 22:21 Dose: Not Given Cholecalciferol (Cholecalciferol (Vit D3) 1000 Unit (25 Mcg) Tab) 2,000 unit PO QDAY [facility] Last Admin: 04/06/22 10:03 Dose: Not Given Divalproex Sodium (Divalproex Dr 500 Mg Tab) 500 mg PO BID [facility] Last Admin: 04/06/22 10:03 Dose: Not Given Fluticasone Propionate (Fluticasone Propionate Nasal [place] 16 Gm) 50 mcg NS QDAY [facility] Last Admin: 04/06/22 10:04 Dose: Not Given Haloperidol Lactate (Haloperidol Lactate 5 Mg/1 Ml Inj) 5 mg IM BID [facility] Last Admin: 04/06/22 10:04 Dose: 5 mg Lorazepam (Lorazepam 2 Mg/Ml Vial) 1 mg IM Q6H PRN PRN Reason: Agitation Mirtazapine (Mirtazapine 15 Mg Tab) 15 mg PO QHS [facility] Last Admin: 04/05/22 22:22 Dose: Not Given Multivitamins/Minerals (Multivitamins,Ther W-Minerals Tab) 1 each PO QDAY [facility] Last Admin: 04/06/22 10:04 Dose: Not Given Olanzapine (Olanzapine Zydis 5 Mg Tab) 5 mg PO QHS [facility] Last Admin: 04/05/22 22:23 Dose: Not Given Tiotropium [place] (Tiotropium 18 Mcg Cap Inhalation) 1 puff IH QDAY [facility] Last Admin: 04/06/22 09:18 Dose: 1 puff Results - Results Labs/Vitals: Laboratory Last Values WBC 5.7 K/mm3 (4.5-11.0) 03/23/22 09:15 RBC 4.99 M/mm3 (3.65-5.03) 03/23/22 09:15 Hgb 15.8 gm/dl (11.8-15.2) H 03/23/22 09:15 Hct 45.3 % (35.5-45.6) 03/23/22 09:15 MCV 91 fl (84-94) 03/23/22 09:15 MCH 32 pg (28-32) 03/23/22 09:15 MCHC 35 % (32-34) H 03/23/22 09:15 RDW 13.2 % (13.2-15.2) 03/23/22 09:15 Plt Count 94 K/mm3 (140-440) L 03/23/22 09:15 Lymph % (Auto) 21.5 % (13.4-35.0) 03/23/22 09:15 [place] % (Auto) 6.9 % (0.0-7.3) 03/23/22 09:15 Eos % (Auto) 5.5 % (0.0-4.3) H 03/23/22 09:15 Baso % (Auto) 1.4 % (0.0-1.8) 03/23/22 09:15 Lymph # (Auto) 1.2 K/mm3 (1.2-5.4) 03/23/22 09:15 [place] # (Auto) 0.4 K/mm3 (0.0-0.8) 03/23/22 09:15 Eos # (Auto) 0.3 K/mm3 (0.0-0.4) 03/23/22 09:15 Baso # (Auto) 0.1 K/mm3 (0.0-0.1) 03/23/22 09:15 Seg Neutrophils % 64.7 % (40.0-70.0) 03/23/22 09:15 Seg Neutrophils # 3.7 K/mm3 (1.8-7.7) 03/23/22 09:15 Sodium 139 mmol/L (137-145) 03/23/22 09:15 Potassium 3.7 mmol/L (3.6-5.0) 03/23/22 09:15 Chloride 100.6 mmol/L (98-107) 03/23/22 09:15 Carbon Dioxide 25 mmol/L (22-30) 03/23/22 09:15 Anion Gap 17 mmol/L 03/23/22 09:15 BUN 15 mg/dL (9-20) 03/23/22 09:15 Creatinine 0.8 mg/dL (0.8-1.3) 03/23/22 09:15 Estimated GFR > 60 ml/min 03/23/22 09:15 BUN/Creatinine Ratio 19 % 03/23/22 09:15 Glucose 112 mg/dL (75-100) H 03/23/22 09:15 Hemoglobin A1c 5.4 % (4-6) 03/23/22 09:15 Calcium 9.5 mg/dL (8.4-10.2) 03/23/22 09:15 Total Bilirubin 1.00 mg/dL (0.1-1.2) 03/23/22 09:15 AST 29 units/L (5-40) 03/23/22 09:15 ALT 19 units/L (7-56) 03/23/22 09:15 Alkaline Phosphatase 99 units/L (35-129) 03/23/22 09:15 Total Protein 6.6 g/dL (6.3-8.2) 03/23/22 09:15 Albumin 4.8 g/dL (3.9-5) 03/23/22 09:15 Albumin/Globulin Ratio 2.7 % 03/23/22 09:15 Triglycerides 92 mg/dL (2-149) 03/23/22 09:15 Cholesterol 206 mg/dL (50-199) H 03/23/22 09:15 LDL Cholesterol Direct 136 mg/dL (50-130) H 03/23/22 09:15 HDL Cholesterol 53 mg/dL (40-59) 03/23/22 09:15 Cholesterol/HDL Ratio 3.88 % 03/23/22 09:15 TSH 1.480 mlU/mL (0.270-4.200) 03/23/22 09:15 SARS-CoV-2 (PCR) Positive (Negative) A 03/31/22 12:20 Last Vital Signs Temp 98.6 F 04/05/22 19:55 Pulse 68 04/06/22 09:19 Resp 18 04/06/22 09:19 BP 144/73 04/05/22 20:09 Pulse Ox 95 04/05/22 19:55
--- NOTE | 2022-04-06 15:50 | Progress Note ---
Assessment and Plan - Patient Problems (1) Vascular dementia with behavioral disturbance Current Visit: Yes Status: Acute Plan to address problem: Verbal prompting, verbal redirection, benzodiazepine therapy as clinically indicated. (2) Cerebral atherosclerosis Current Visit: Yes Status: Acute Plan to address problem: Risk factor reduction, antiplatelet therapy as clinically indicated. (3) Hypertension Current Visit: Yes Status: Acute Qualifiers: Hypertension type: primary hypertension Qualified Code(s): I10 - Essential (primary) hypertension Plan to address problem: Monitor blood pressure every shift, continue medical management (4) Malnutrition Current Visit: Yes Status: Acute Qualifiers: Protein-calorie malnutrition severity: moderate Plan to address problem: Increase protein intake, dietary supplementation. (5) Advance care planning Current Visit: Yes Status: Acute Plan to address problem: Disease education done, care plan discussed, diagnoses discussed, prognosis discussed, patient is full code, +30 minutes. (6) Preventative health care Current Visit: Yes Status: Acute Plan to address problem: Patient counseled regarding increase protein intake, outpatient follow-up with primary care physician for all age and risk factor appropriate screening test. (7) Nicotine dependence Current Visit: Yes Status: Acute Qualifiers: Nicotine product type: cigarettes Plan to address problem: Patient counseled regarding smoking cessation, behavior change counseling, +15 minutes. Supportive care. History Interval history: 76 YO Male Vascular Dementia with Behavioral Disturbance, Cerebral Atherosclerosis, HLD, COPD, Nicotine Dependence admitted to [facility] psych unit for psychiatric stabilization. Consult placed by Dr. Rich for medical management. Patient seen and evaluated in the recreation room. Patient exhibits decreased interaction. No reported nursing events. Patient exhibits diminished cognition. Patient remains at baseline level of cognition and function. Hospitalist Physical - Constitutional Vitals: Temp Pulse Resp BP Pulse Ox 98.6 F 68 18 144/73 95 04/05/22 19:55 04/06/22 09:19 04/06/22 09:19 04/05/22 20:09 04/05/22 19:55 General appearance: Present: no acute distress, well-nourished - EENT Eyes: Present: PERRL ENT: hearing decreased - Neck Neck: Present: supple - Respiratory Respiratory effort: normal Respiratory: bilateral: diminished - Cardiovascular Rhythm: regular Heart Sounds: Present: S1 & S2 - Extremities Extremities: no ischemia Peripheral Pulses: within normal limits - Abdominal General gastrointestinal: soft, non-tender, non-distended - Integumentary Integumentary: Present: clear, dry - Psychiatric Psychiatric: cooperative - Neurologic Neurologic: CNII-XII intact Results - Labs CBC & Chem 7: 03/23/22 09:15 03/23/22 09:15 Labs: Laboratory Last Values WBC 5.7 K/mm3 (4.5-11.0) 03/23/22 09:15 RBC 4.99 M/mm3 (3.65-5.03) 03/23/22 09:15 Hgb 15.8 gm/dl (11.8-15.2) H 03/23/22 09:15 Hct 45.3 % (35.5-45.6) 03/23/22 09:15 MCV 91 fl (84-94) 03/23/22 09:15 MCH 32 pg (28-32) 03/23/22 09:15 MCHC 35 % (32-34) H 03/23/22 09:15 RDW 13.2 % (13.2-15.2) 03/23/22 09:15 Plt Count 94 K/mm3 (140-440) L 03/23/22 09:15 Lymph % (Auto) 21.5 % (13.4-35.0) 03/23/22 09:15 [place] % (Auto) 6.9 % (0.0-7.3) 03/23/22 09:15 Eos % (Auto) 5.5 % (0.0-4.3) H 03/23/22 09:15 Baso % (Auto) 1.4 % (0.0-1.8) 03/23/22 09:15 Lymph # (Auto) 1.2 K/mm3 (1.2-5.4) 03/23/22 09:15 [place] # (Auto) 0.4 K/mm3 (0.0-0.8) 03/23/22 09:15 Eos # (Auto) 0.3 K/mm3 (0.0-0.4) 03/23/22 09:15 Baso # (Auto) 0.1 K/mm3 (0.0-0.1) 03/23/22 09:15 Seg Neutrophils % 64.7 % (40.0-70.0) 03/23/22 09:15 Seg Neutrophils # 3.7 K/mm3 (1.8-7.7) 03/23/22 09:15 Sodium 139 mmol/L (137-145) 03/23/22 09:15 Potassium 3.7 mmol/L (3.6-5.0) 03/23/22 09:15 Chloride 100.6 mmol/L (98-107) 03/23/22 09:15 Carbon Dioxide 25 mmol/L (22-30) 03/23/22 09:15 Anion Gap 17 mmol/L 03/23/22 09:15 BUN 15 mg/dL (9-20) 03/23/22 09:15 Creatinine 0.8 mg/dL (0.8-1.3) 03/23/22 09:15 Estimated GFR > 60 ml/min 03/23/22 09:15 BUN/Creatinine Ratio 19 % 03/23/22 09:15 Glucose 112 mg/dL (75-100) H 03/23/22 09:15 Hemoglobin A1c 5.4 % (4-6) 03/23/22 09:15 Calcium 9.5 mg/dL (8.4-10.2) 03/23/22 09:15 Total Bilirubin 1.00 mg/dL (0.1-1.2) 03/23/22 09:15 AST 29 units/L (5-40) 03/23/22 09:15 ALT 19 units/L (7-56) 03/23/22 09:15 Alkaline Phosphatase 99 units/L (35-129) 03/23/22 09:15 Total Protein 6.6 g/dL (6.3-8.2) 03/23/22 09:15 Albumin 4.8 g/dL (3.9-5) 03/23/22 09:15 Albumin/Globulin Ratio 2.7 % 03/23/22 09:15 Triglycerides 92 mg/dL (2-149) 03/23/22 09:15 Cholesterol 206 mg/dL (50-199) H 03/23/22 09:15 LDL Cholesterol Direct 136 mg/dL (50-130) H 03/23/22 09:15 HDL Cholesterol 53 mg/dL (40-59) 03/23/22 09:15 Cholesterol/HDL Ratio 3.88 % 03/23/22 09:15 TSH 1.480 mlU/mL (0.270-4.200) 03/23/22 09:15 SARS-CoV-2 (PCR) Positive (Negative) A 03/31/22 12:20 [place]/IV: Voiding Method Toilet Active Medications - Current Medications Current Medications: Generic Name Dose Route Start Last Admin Trade Name Freq PRN Reason Stop Dose Admin Albuterol 2.5 mg 03/24/22 20:00 04/05/22 21:26 Albuterol 2.5 Mg/3 Ml Nebu IH Not Given BIDRT [facility] Aspirin 81 mg 03/23/22 12:00 04/06/22 10:03 Aspirin Ec 81 Mg Tab PO Not Given QDAY [facility] Atorvastatin Calcium 40 mg 03/23/22 22:00 04/05/22 22:21 Atorvastatin 40 Mg Tab PO Not Given QHS [facility] Cholecalciferol 2,000 unit 03/23/22 12:00 04/06/22 10:03 Cholecalciferol (Vit D3) 1000 Unit (25 Mcg) Tab PO Not Given QDAY [facility] Divalproex Sodium 500 mg 04/01/22 22:00 04/06/22 10:[address] 500 Mg Tab PO Not Given BID [facility] Fluticasone Propionate 50 mcg 03/23/22 12:00 04/06/22 10:04 Fluticasone Propionate Nasal [place] 16 Gm NS Not Given QDAY [facility] Haloperidol Lactate 5 mg 03/29/22 22:00 04/06/22 10:04 Haloperidol Lactate 5 Mg/1 Ml Inj IM 5 mg BID [facility] Administration Lorazepam 1 mg 04/03/22 08:48 Lorazepam 2 Mg/Ml Vial IM Q6H PRN Agitation Mirtazapine 15 mg 04/01/22 22:00 04/05/22 22:22 Mirtazapine 15 Mg Tab PO Not Given QHS [facility] Multivitamins/Minerals 1 each 03/23/22 12:00 04/06/22 10:04 Multivitamins,Ther W-Minerals Tab PO Not Given QDAY [facility] Olanzapine 5 mg 04/04/22 22:00 04/05/22 22:23 Olanzapine Zydis 5 Mg Tab PO Not Given QHS [facility] Tiotropium [place] 1 puff 03/23/22 12:00 04/06/22 09:18 Tiotropium 18 Mcg Cap Inhalation IH 1 puff QDAY [facility] Administration Nutrition/Malnutrition Assess - Dietary Evaluation Nutrition/Malnutrition Findings: Nutrition Notes Start: 03/23/22 14:03 Freq: Status: Active Protocol: Document 03/23/22 14:03 FARIBA (Rec: 03/23/22 14:19 FARIBA [id number]) Nutrition Notes Need for Assessment generated from: Low BMI Initial or Follow up Assessment Current Diagnosis Hyperlipidemia Other Pertinent Diagnosis Dementia w/Behavioral Disturbance. Current Diet Regular Diet (since B 03/23). Labs/Tests 03/23: Glu 112, HbA1c 5.4. Pertinent Medications 03/23: Vit D3, Multivitamins, others nutritionally unremarkable. 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 Weight Status Underweight Subjective/Other Information RD consult for Low BMI assessment. No reports available of Pt's PO intake of meals at the time , and RN states that Pt refused his meals, according to ADL notes. Pt's Low BMI seems to correspond to a natural body composition, and not related to a sudden loss of body weight nor chronic malnutrition, since no signs of concern were mentioned in the Physical Assessment History or the Progress notes. Percent of energy/protein needs met: Prescribed Regular Diet provides for energy/protein needs (2,289 Kcal/89 g) during LOS. Burn Absent Trauma Absent GI Symptoms None Food Allergy Yes Skin Integrity/Comment Assessment WNL. 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 No Is Patient Ambulatory and/or Out of Bed Yes REE-([facility]-ambulatory/OOB) [ 1536.210 [id number]] Kcal/Kg value to use for calculation 33 Approximate Energy Requirements Using 1647 kcal/Kg Calculation Used for Recommendations Kcal/kg Additional Notes Protein: 1-1.2 g/Kg IBW; 65-78 g/day. Fluids: 1 ml/Kcal, or as per MD. Nutrition Intervention Change Diet Order: Continue Regular Diet. Revisit per MD consult or patient Sign Off request: Additional Comments Continue monitoring food tolerance, %PO intake of meals , and BM.
--- NOTE | 2022-04-06 15:52 | Progress Note ---
Assessment and Plan - Patient Problems (1) Vascular dementia with behavioral disturbance Current Visit: Yes Status: Acute Plan to address problem: Verbal prompting, verbal redirection, benzodiazepine therapy as clinically indicated. (2) Cerebral atherosclerosis Current Visit: Yes Status: Acute Plan to address problem: Risk factor reduction, antiplatelet therapy as clinically indicated. (3) Hypertension Current Visit: Yes Status: Acute Qualifiers: Hypertension type: primary hypertension Qualified Code(s): I10 - Essential (primary) hypertension Plan to address problem: Monitor blood pressure every shift, continue medical management (4) Malnutrition Current Visit: Yes Status: Acute Qualifiers: Protein-calorie malnutrition severity: moderate Plan to address problem: Increase protein intake, dietary supplementation. (5) Advance care planning Current Visit: Yes Status: Acute Plan to address problem: Disease education done, care plan discussed, diagnoses discussed, prognosis discussed, patient is full code, +30 minutes. (6) Coronavirus infection Current Visit: Yes Status: Acute Plan to address problem: Asymptomatic at this time. Patient appears to show decrease in global function. Continue to monitor. (7) Preventative health care Current Visit: Yes Status: Acute Plan to address problem: Patient counseled regarding increase protein intake, outpatient follow-up with primary care physician for all age and risk factor appropriate screening test. (8) Nicotine dependence Current Visit: Yes Status: Acute Qualifiers: Nicotine product type: cigarettes Plan to address problem: Patient counseled regarding smoking cessation, behavior change counseling, +15 minutes. Supportive care. History Interval history: 76 YO Male Vascular Dementia with Behavioral Disturbance, Cerebral Atherosclerosis, HLD, COPD, Nicotine Dependence admitted to [facility] for psychiatric stabilization. Consult placed by Dr. Rich for medical management. Patient seen and evaluated in the recreation room. Patient exhibit s decreased interaction. No reported nursing events. Patient exhibits diminished cognition. Patient remains at baseline level of cognition and function. Hospitalist Physical - Constitutional Vitals: Temp Pulse Resp BP Pulse Ox 98.6 F 68 18 144/73 95 04/05/22 19:55 04/06/22 09:19 04/06/22 09:19 04/05/22 20:09 04/05/22 19:55 General appearance: Present: no acute distress, well-nourished - EENT Eyes: Present: PERRL ENT: hearing decreased - Neck Neck: Present: supple - Respiratory Respiratory effort: normal Respiratory: bilateral: diminished - Cardiovascular Rhythm: regular Heart Sounds: Present: S1 & S2 - Extremities Extremities: no ischemia Peripheral Pulses: within normal limits - Abdominal General gastrointestinal: soft, non-tender, non-distended - Integumentary Integumentary: Present: clear, dry - Psychiatric Psychiatric: cooperative - Neurologic Neurologic: CNII-XII intact Results - Labs CBC & Chem 7: 03/23/22 09:15 03/23/22 09:15 Labs: Laboratory Last Values WBC 5.7 K/mm3 (4.5-11.0) 03/23/22 09:15 RBC 4.99 M/mm3 (3.65-5.03) 03/23/22 09:15 Hgb 15.8 gm/dl (11.8-15.2) H 03/23/22 09:15 Hct 45.3 % (35.5-45.6) 03/23/22 09:15 MCV 91 fl (84-94) 03/23/22 09:15 MCH 32 pg (28-32) 03/23/22 09:15 MCHC 35 % (32-34) H 03/23/22 09:15 RDW 13.2 % (13.2-15.2) 03/23/22 09:15 Plt Count 94 K/mm3 (140-440) L 03/23/22 09:15 Lymph % (Auto) 21.5 % (13.4-35.0) 03/23/22 09:15 [place] % (Auto) 6.9 % (0.0-7.3) 03/23/22 09:15 Eos % (Auto) 5.5 % (0.0-4.3) H 03/23/22 09:15 Baso % (Auto) 1.4 % (0.0-1.8) 03/23/22 09:15 Lymph # (Auto) 1.2 K/mm3 (1.2-5.4) 03/23/22 09:15 [place] # (Auto) 0.4 K/mm3 (0.0-0.8) 03/23/22 09:15 Eos # (Auto) 0.3 K/mm3 (0.0-0.4) 03/23/22 09:15 Baso # (Auto) 0.1 K/mm3 (0.0-0.1) 03/23/22 09:15 Seg Neutrophils % 64.7 % (40.0-70.0) 03/23/22 09:15 Seg Neutrophils # 3.7 K/mm3 (1.8-7.7) 03/23/22 09:15 Sodium 139 mmol/L (137-145) 03/23/22 09:15 Potassium 3.7 mmol/L (3.6-5.0) 03/23/22 09:15 Chloride 100.6 mmol/L (98-107) 03/23/22 09:15 Carbon Dioxide 25 mmol/L (22-30) 03/23/22 09:15 Anion Gap 17 mmol/L 03/23/22 09:15 BUN 15 mg/dL (9-20) 03/23/22 09:15 Creatinine 0.8 mg/dL (0.8-1.3) 03/23/22 09:15 Estimated GFR > 60 ml/min 03/23/22 09:15 BUN/Creatinine Ratio 19 % 03/23/22 09:15 Glucose 112 mg/dL (75-100) H 03/23/22 09:15 Hemoglobin A1c 5.4 % (4-6) 03/23/22 09:15 Calcium 9.5 mg/dL (8.4-10.2) 03/23/22 09:15 Total Bilirubin 1.00 mg/dL (0.1-1.2) 03/23/22 09:15 AST 29 units/L (5-40) 03/23/22 09:15 ALT 19 units/L (7-56) 03/23/22 09:15 Alkaline Phosphatase 99 units/L (35-129) 03/23/22 09:15 Total Protein 6.6 g/dL (6.3-8.2) 03/23/22 09:15 Albumin 4.8 g/dL (3.9-5) 03/23/22 09:15 Albumin/Globulin Ratio 2.7 % 03/23/22 09:15 Triglycerides 92 mg/dL (2-149) 03/23/22 09:15 Cholesterol 206 mg/dL (50-199) H 03/23/22 09:15 LDL Cholesterol Direct 136 mg/dL (50-130) H 03/23/22 09:15 HDL Cholesterol 53 mg/dL (40-59) 03/23/22 09:15 Cholesterol/HDL Ratio 3.88 % 03/23/22 09:15 TSH 1.480 mlU/mL (0.270-4.200) 03/23/22 09:15 SARS-CoV-2 (PCR) Positive (Negative) A 03/31/22 12:20 Kaufman/IV: Voiding Method Toilet Active Medications - Current Medications Current Medications: Generic Name Dose Route Start Last Admin Trade Name Freq PRN Reason Stop Dose Admin Albuterol 2.5 mg 03/24/22 20:00 04/05/22 21:26 Albuterol 2.5 Mg/3 Ml Nebu IH Not Given BIDRT [facility] Aspirin 81 mg 03/23/22 12:00 04/06/22 10:03 Aspirin Ec 81 Mg Tab PO Not Given QDAY [facility] Atorvastatin Calcium 40 mg 03/23/22 22:00 04/05/22 22:21 Atorvastatin 40 Mg Tab PO Not Given QHS [facility] Cholecalciferol 2,000 unit 03/23/22 12:00 04/06/22 10:03 Cholecalciferol (Vit D3) 1000 Unit (25 Mcg) Tab PO Not Given QDAY [facility] Divalproex Sodium 500 mg 04/01/22 22:00 04/06/22 10:[address] 500 Mg Tab PO Not Given BID [facility] Fluticasone Propionate 50 mcg 03/23/22 12:00 04/06/22 10:04 Fluticasone Propionate Nasal [place] 16 Gm NS Not Given QDAY [facility] Haloperidol Lactate 5 mg 03/29/22 22:00 04/06/22 10:04 Haloperidol Lactate 5 Mg/1 Ml Inj IM 5 mg BID [facility] Administration Lorazepam 1 mg 04/03/22 08:48 Lorazepam 2 Mg/Ml Vial IM Q6H PRN Agitation Mirtazapine 15 mg 04/01/22 22:00 04/05/22 22:22 Mirtazapine 15 Mg Tab PO Not Given QHS [facility] Multivitamins/Minerals 1 each 03/23/22 12:00 04/06/22 10:04 Multivitamins,Ther W-Minerals Tab PO Not Given QDAY [facility] Olanzapine 5 mg 04/04/22 22:00 04/05/22 22:23 Olanzapine Zydis 5 Mg Tab PO Not Given QHS [facility] Tiotropium [place] 1 puff 03/23/22 12:00 04/06/22 09:18 Tiotropium 18 Mcg Cap Inhalation IH 1 puff QDAY [facility] Administration Nutrition/Malnutrition Assess - Dietary Evaluation Nutrition/Malnutrition Findings: Nutrition Notes Start: 03/23/22 14:03 Freq: Status: Active Protocol: Document 03/23/22 14:03 FARIBA (Rec: 03/23/22 14:19 FARIBA [id number]) Nutrition Notes Need for Assessment generated from: Low BMI Initial or Follow up Assessment Current Diagnosis Hyperlipidemia Other Pertinent Diagnosis Dementia w/Behavioral Disturbance. Current Diet Regular Diet (since B 03/23). Labs/Tests 03/23: Glu 112, HbA1c 5.4. Pertinent Medications 03/23: Vit D3, Multivitamins, others nutritionally unremarkable. 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 Weight Status Underweight Subjective/Other Information RD consult for Low BMI assessment. No reports available of Pt's PO intake of meals at the time , and RN states that Pt refused his meals, according to ADL notes. Pt's Low BMI seems to correspond to a natural body composition, and not related to a sudden loss of body weight nor chronic malnutrition, since no signs of concern were mentioned in the Physical Assessment History or the Progress notes. Percent of energy/protein needs met: Prescribed Regular Diet provides for energy/protein needs (2,289 Kcal/89 g) during LOS. Burn Absent Trauma Absent GI Symptoms None Food Allergy Yes Skin Integrity/Comment Assessment WNL. 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 No Is Patient Ambulatory and/or Out of Bed Yes [facility]-amb[facility]/OOB) [ 1536.210 NUTR.[email or web address]] Kcal/Kg value to use for calculation 33 Approximate Energy Requirements Using 1647 kcal/Kg Calculation Used for Recommendations Kcal/kg Additional Notes Protein: 1-1.2 g/Kg IBW; 65-78 g/day. Fluids: 1 ml/Kcal, or as per MD. Nutrition Intervention Change Diet Order: Continue Regular Diet. Revisit per MD consult or patient Sign Off request: Additional Comments Continue monitoring food tolerance, %PO intake of meals , and BM.
--- NOTE | 2022-04-06 15:54 | Progress Note ---
Assessment and Plan - Patient Problems (1) Vascular dementia with behavioral disturbance Current Visit: Yes Status: Acute Plan to address problem: Verbal prompting, verbal redirection, benzodiazepine therapy as clinically indicated. (2) Cerebral atherosclerosis Current Visit: Yes Status: Acute Plan to address problem: Risk factor reduction, antiplatelet therapy as clinically indicated. (3) Hypertension Current Visit: Yes Status: Acute Qualifiers: Hypertension type: primary hypertension Qualified Code(s): I10 - Essential (primary) hypertension Plan to address problem: Monitor blood pressure every shift, continue medical management (4) Malnutrition Current Visit: Yes Status: Acute Qualifiers: Protein-calorie malnutrition severity: moderate Plan to address problem: Increase protein intake, dietary supplementation. (5) Advance care planning Current Visit: Yes Status: Acute Plan to address problem: Disease education done, care plan discussed, diagnoses discussed, prognosis discussed, patient is full code, +30 minutes. (6) Coronavirus infection Current Visit: Yes Status: Acute Plan to address problem: Asymptomatic at this time. Patient appears to show decrease in global function. Patient appears to have developed symptoms regarding coronavirus infection. Patient to be discharged and admitted to medical floor for aggressive medical therapy. (7) Preventative health care Current Visit: Yes Status: Acute Plan to address problem: Patient counseled regarding increase protein intake, outpatient follow-up with primary care physician for all age and risk factor appropriate screening test. (8) Nicotine dependence Current Visit: Yes Status: Acute Qualifiers: Nicotine product type: cigarettes Plan to address problem: Patient counseled regarding smoking cessation, behavior change counseling, +15 minutes. Supportive care. History Interval history: 76 YO Male Vascular Dementia with Behavioral Disturbance, Cerebral Atherosclerosis, HLD, COPD, Nicotine Dependence admitted to [facility] unit for psychiatric stabilization. Consult placed by Dr. Rich for medical management. Patient seen and evaluated in the recreation room. Patient exhibits decreased interaction. Patient lethargic today. Patient exhibits diminished cognition. Patient to be discharged from [facility] and admitted to medical floor. Hospitalist Physical - Constitutional Vitals: Temp Pulse Resp BP Pulse Ox 98.6 F 68 18 144/73 95 04/05/22 19:55 04/06/22 09:19 04/06/22 09:19 04/05/22 20:09 04/05/22 19:55 General appearance: Present: no acute distress, well-nourished - EENT Eyes: Present: PERRL ENT: hearing decreased - Neck Neck: Present: supple - Respiratory Respiratory effort: labored Respiratory: bilateral: diminished - Cardiovascular Rhythm: regular Heart Sounds: Present: S1 & S2 - Extremities Extremities: no ischemia Peripheral Pulses: within normal limits - Abdominal General gastrointestinal: soft, non-tender, non-distended - Integumentary Integumentary: Present: clear, dry - Psychiatric Psychiatric: cooperative - Neurologic Neurologic: CNII-XII intact Results - Labs CBC & Chem 7: 03/23/22 09:15 03/23/22 09:15 Labs: Laboratory Last Values WBC 5.7 K/mm3 (4.5-11.0) 03/23/22 09:15 RBC 4.99 M/mm3 (3.65-5.03) 03/23/22 09:15 Hgb 15.8 gm/dl (11.8-15.2) H 03/23/22 09:15 Hct 45.3 % (35.5-45.6) 03/23/22 09:15 MCV 91 fl (84-94) 03/23/22 09:15 MCH 32 pg (28-32) 03/23/22 09:15 MCHC 35 % (32-34) H 03/23/22 09:15 RDW 13.2 % (13.2-15.2) 03/23/22 09:15 Plt Count 94 K/mm3 (140-440) L 03/23/22 09:15 Lymph % (Auto) 21.5 % (13.4-35.0) 03/23/22 09:15 [place] % (Auto) 6.9 % (0.0-7.3) 03/23/22 09:15 Eos % (Auto) 5.5 % (0.0-4.3) H 03/23/22 09:15 Baso % (Auto) 1.4 % (0.0-1.8) 03/23/22 09:15 Lymph # (Auto) 1.2 K/mm3 (1.2-5.4) 03/23/22 09:15 [place] # (Auto) 0.4 K/mm3 (0.0-0.8) 03/23/22 09:15 Eos # (Auto) 0.3 K/mm3 (0.0-0.4) 03/23/22 09:15 Baso # (Auto) 0.1 K/mm3 (0.0-0.1) 03/23/22 09:15 Seg Neutrophils % 64.7 % (40.0-70.0) 03/23/22 09:15 Seg Neutrophils # 3.7 K/mm3 (1.8-7.7) 03/23/22 09:15 Sodium 139 mmol/L (137-145) 03/23/22 09:15 Potassium 3.7 mmol/L (3.6-5.0) 03/23/22 09:15 Chloride 100.6 mmol/L (98-107) 03/23/22 09:15 Carbon Dioxide 25 mmol/L (22-30) 03/23/22 09:15 Anion Gap 17 mmol/L 03/23/22 09:15 BUN 15 mg/dL (9-20) 03/23/22 09:15 Creatinine 0.8 mg/dL (0.8-1.3) 03/23/22 09:15 Estimated GFR > 60 ml/min 03/23/22 09:15 BUN/Creatinine Ratio 19 % 03/23/22 09:15 Glucose 112 mg/dL (75-100) H 03/23/22 09:15 Hemoglobin A1c 5.4 % (4-6) 03/23/22 09:15 Calcium 9.5 mg/dL (8.4-10.2) 03/23/22 09:15 Total Bilirubin 1.00 mg/dL (0.1-1.2) 03/23/22 09:15 AST 29 units/L (5-40) 03/23/22 09:15 ALT 19 units/L (7-56) 03/23/22 09:15 Alkaline Phosphatase 99 units/L (35-129) 03/23/22 09:15 Total Protein 6.6 g/dL (6.3-8.2) 03/23/22 09:15 Albumin 4.8 g/dL (3.9-5) 03/23/22 09:15 Albumin/Globulin Ratio 2.7 % 03/23/22 09:15 Triglycerides 92 mg/dL (2-149) 03/23/22 09:15 Cholesterol 206 mg/dL (50-199) H 03/23/22 09:15 LDL Cholesterol Direct 136 mg/dL (50-130) H 03/23/22 09:15 HDL Cholesterol 53 mg/dL (40-59) 03/23/22 09:15 Cholesterol/HDL Ratio 3.88 % 03/23/22 09:15 TSH 1.480 mlU/mL (0.270-4.200) 03/23/22 09:15 SARS-CoV-2 (PCR) Positive (Negative) A 03/31/22 12:20 Kaufman/IV: Voiding Method Toilet Active Medications - Current Medications Current Medications: Generic Name Dose Route Start Last Admin Trade Name Freq PRN Reason Stop Dose Admin Albuterol 2.5 mg 03/24/22 20:00 04/05/22 21:26 Albuterol 2.5 Mg/3 Ml Nebu IH Not Given BIDRT [facility] Aspirin 81 mg 03/23/22 12:00 04/06/22 10:03 Aspirin Ec 81 Mg Tab PO Not Given QDAY [facility] Atorvastatin Calcium 40 mg 03/23/22 22:00 04/05/22 22:21 Atorvastatin 40 Mg Tab PO Not Given QHS [facility] Cholecalciferol 2,000 unit 03/23/22 12:00 04/06/22 10:03 Cholecalciferol (Vit D3) 1000 Unit (25 Mcg) Tab PO Not Given QDAY [facility] Divalproex Sodium 500 mg 04/01/22 22:00 04/06/22 10:[address] 500 Mg Tab PO Not Given BID [facility] Fluticasone Propionate 50 mcg 03/23/22 12:00 04/06/22 10:04 Fluticasone Propionate Nasal [place] 16 Gm NS Not Given QDAY [facility] Haloperidol Lactate 5 mg 03/29/22 22:00 04/06/22 10:04 Haloperidol Lactate 5 Mg/1 Ml Inj IM 5 mg BID [facility] Administration Lorazepam 1 mg 04/03/22 08:48 Lorazepam 2 Mg/Ml Vial IM Q6H PRN Agitation Mirtazapine 15 mg 04/01/22 22:00 04/05/22 22:22 Mirtazapine 15 Mg Tab PO Not Given QHS [facility] Multivitamins/Minerals 1 each 03/23/22 12:00 04/06/22 10:04 Multivitamins,Ther W-Minerals Tab PO Not Given QDAY [facility] Olanzapine 5 mg 04/04/22 22:00 04/05/22 22:23 Olanzapine Zydis 5 Mg Tab PO Not Given QHS [facility] Tiotropium [place] 1 puff 03/23/22 12:00 04/06/22 09:18 Tiotropium 18 Mcg Cap Inhalation IH 1 puff QDAY [facility] Administration Nutrition/Malnutrition Assess - Dietary Evaluation Nutrition/Malnutrition Findings: Nutrition Notes Start: 03/23/22 14:03 Freq: Status: Active Protocol: Document 03/23/22 14:03 FARIBA (Rec: 03/23/22 14:19 [email or web address] [id number]) Nutrition Notes Need for Assessment generated from: Low BMI Initial or Follow up Assessment Current Diagnosis Hyperlipidemia Other Pertinent Diagnosis Dementia w/Behavioral Disturbance. Current Diet Regular Diet (since B 03/23). Labs/Tests 03/23: Glu 112, HbA1c 5.4. Pertinent Medications 03/23: Vit D3, Multivitamins, others nutritionally unremarkable. 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 Weight Status Underweight Subjective/Other Information RD consult for Low BMI assessment. No reports available of Pt's PO intake of meals at the time , and RN states that Pt refused his meals, according to ADL notes. Pt's Low BMI seems to correspond to a natural body composition, and not related to a sudden loss of body weight nor chronic malnutrition, since no signs of concern were mentioned in the Physical Assessment History or the Progress notes. Percent of energy/protein needs met: Prescribed Regular Diet provides for energy/protein needs (2,289 Kcal/89 g) during LOS. Burn Absent Trauma Absent GI Symptoms None Food Allergy Yes Skin Integrity/Comment Assessment WNL. Minimum of two criteria No Fluid Accumulation N/A Reduced Calender Tender Strength N/A (non-severe) Protein-Calorie Malnutrition N\A #1 Nutrition Diagnosis No nutrition diagnosis at this time Is patient on ventilator? No Is Patient Ambulatory and/or Out of Bed Yes REE-([facility]-ambulatory/OOB) [ 1536.210 NUTR.MSJOOB] Kcal/Kg value to use for calculation 33 Approximate Energy Requirements Using 1647 kcal/Kg Calculation Used for Recommendations Kcal/kg Additional Notes Protein: 1-1.2 g/Kg IBW; 65-78 g/day. Fluids: 1 ml/Kcal, or as per MD. Nutrition Intervention Change Diet Order: Continue Regular Diet. Revisit per MD consult or patient Sign Off request: Additional Comments Continue monitoring food tolerance, %PO intake of meals , and BM.
--- NOTE | 2022-04-07 12:07 | Discharge Summary ---
Providers - Providers Date of Admission: 03/23/22 00:22 Date of discharge: 04/06/22 Attending physician: NEO ARGUELLO MD 03/22/22 20:41 Consult to Physician [CONS] Routine Comment: Consulting Provider: CARMINE CASIANO Physician Instructions: Please manage the existing condition Reason For Exam: New admission Primary care physician: EDGE KITTER Hospitalization Reason for admission: agitation Admitting Diagnosis: F02.81 - DEMENTIA IN OTH DISEASES CLASSD ELSWHR W BEHAVIORAL DISTURB Condition: Stable Hospital course: The patient was provided inpatient psychiatric treatment with safe and supportive environment, group/individual therapy, psychiatric medication, medication adjustment, adverse effect monitor, medical evaluation, medical treatment, social service assessment, social support meeting, placement assessment and psycho-education. The patients mood, cognition, behavior, motivation, compliance to treatment and appreciation on family/social support are improved and stabilized. At the time of discharge, the patient had no suicidal ideas, no homicidal ideas, no aggressive thoughts, no endangering behavior and no debilitating adverse effects. The patient agreed on the treatment plan, understood the risk, benefit, alternative treatment, potential consequence of no treatment, and gave informed consent. Disposition: ADMITTED INPATIENT Time spent for discharge: 35 Allergies/Adverse Reactions: Allergies onion Allergy (Verified 03/27/22 10:21) Unknown Vital Signs: Last Vital Signs Temp 98.6 F 04/05/22 19:55 Pulse 68 04/06/22 09:19 Resp 18 04/06/22 09:19 BP 144/73 04/05/22 20:09 Pulse Ox 95 04/05/22 19:55 Last Lab: Laboratory Last Values WBC 5.7 K/mm3 (4.5-11.0) 03/23/22 09:15 RBC 4.99 M/mm3 (3.65-5.03) 03/23/22 09:15 Hgb 15.8 gm/dl (11.8-15.2) H 03/23/22 09:15 Hct 45.3 % (35.5-45.6) 03/23/22 09:15 MCV 91 fl (84-94) 03/23/22 09:15 MCH 32 pg (28-32) 03/23/22 09:15 MCHC 35 % (32-34) H 03/23/22 09:15 RDW 13.2 % (13.2-15.2) 03/23/22 09:15 Plt Count 94 K/mm3 (140-440) L 03/23/22 09:15 Lymph % (Auto) 21.5 % (13.4-35.0) 03/23/22 09:15 [place] % (Auto) 6.9 % (0.0-7.3) 03/23/22 09:15 Eos % (Auto) 5.5 % (0.0-4.3) H 03/23/22 09:15 Baso % (Auto) 1.4 % (0.0-1.8) 03/23/22 09:15 Lymph # (Auto) 1.2 K/mm3 (1.2-5.4) 03/23/22 09:15 [place] # (Auto) 0.4 K/mm3 (0.0-0.8) 03/23/22 09:15 Eos # (Auto) 0.3 K/mm3 (0.0-0.4) 03/23/22 09:15 Baso # (Auto) 0.1 K/mm3 (0.0-0.1) 03/23/22 09:15 Seg Neutrophils % 64.7 % (40.0-70.0) 03/23/22 09:15 Seg Neutrophils # 3.7 K/mm3 (1.8-7.7) 03/23/22 09:15 Sodium 139 mmol/L (137-145) 03/23/22 09:15 Potassium 3.7 mmol/L (3.6-5.0) 03/23/22 09:15 Chloride 100.6 mmol/L (98-107) 03/23/22 09:15 Carbon Dioxide 25 mmol/L (22-30) 03/23/22 09:15 Anion Gap 17 mmol/L 03/23/22 09:15 BUN 15 mg/dL (9-20) 03/23/22 09:15 Creatinine 0.8 mg/dL (0.8-1.3) 03/23/22 09:15 Estimated GFR > 60 ml/min 03/23/22 09:15 BUN/Creatinine Ratio 19 % 03/23/22 09:15 Glucose 112 mg/dL (75-100) H 03/23/22 09:15 Hemoglobin A1c 5.4 % (4-6) 03/23/22 09:15 Calcium 9.5 mg/dL (8.4-10.2) 03/23/22 09:15 Total Bilirubin 1.00 mg/dL (0.1-1.2) 03/23/22 09:15 AST 29 units/L (5-40) 03/23/22 09:15 ALT 19 units/L (7-56) 03/23/22 09:15 Alkaline Phosphatase 99 units/L (35-129) 03/23/22 09:15 Total Protein 6.6 g/dL (6.3-8.2) 03/23/22 09:15 Albumin 4.8 g/dL (3.9-5) 03/23/22 09:15 Albumin/Globulin Ratio 2.7 % 03/23/22 09:15 Triglycerides 92 mg/dL (2-149) 03/23/22 09:15 Cholesterol 206 mg/dL (50-199) H 03/23/22 09:15 LDL Cholesterol Direct 136 mg/dL (50-130) H 03/23/22 09:15 HDL Cholesterol 53 mg/dL (40-59) 03/23/22 09:15 Cholesterol/HDL Ratio 3.88 % 03/23/22 09:15 TSH 1.480 mlU/mL (0.270-4.200) 03/23/22 09:15 SARS-CoV-2 (PCR) Positive (Negative) A 03/31/22 12:20 Core Measure Documentation - Palliative Care Palliative Care/ Comfort Measures: Not Applicable - Core Measures Any of the following diagnoses?: none Exam - Constitutional Vitals: Temp Pulse Resp BP Pulse Ox 98.6 F 68 18 144/73 95 04/05/22 19:55 04/06/22 09:19 04/06/22 09:19 04/05/22 20:09 04/05/22 19:55 General appearance: Present: no acute distress - EENT Eyes: Present: PERRL, EOM intact ENT: hearing intact, clear oral mucosa - Neck Neck: Present: supple, normal ROM - Respiratory Respiratory effort: normal Plan Activity: advance as tolerated Weight Bearing Status: Weight Bear as Tolerated Care Plan Goals: Maintain good and stable mental health Plan of Treatment: The patient should be compliant with medications, not to use drugs and not to drink alcohol.The patient understands that if suicidal ideas, homicidal ideas, or any endangering thoughts/behavior arise, they should immediately seek for emergent assistance including but not limited to crisis hot line and emergency room. Follow up with outpatient Psychiatrist and PCP within 7 - 14 days of discharge. Assessment: Dementia with behavioral disturbance Follow up with: PRIMARY CARE, [Primary Care Provider] - 7 Days
== END 2022-04-06 18:34 | disposition short-term general hospital (02) | DRG 884 ==
LOC: 3A 15:36 → UNDOADMIN 15:36 → 5A 03-23 00:22
PROVIDERS: ADMIT Psychiatry & Neurology Psychiatry; ATTEND Psychiatry & Neurology Psychiatry
DX: F03.91 Unspecified dementia, unspecified severity, with behavioral disturbance (principal); U07.1 COVID-19; E44.0 Moderate protein-calorie malnutrition; Z68.1 Body mass index [BMI] 19.9 or less, adult; F22 Delusional disorders; J44.9 Chronic obstructive pulmonary disease, unspecified; E78.5 Hyperlipidemia, unspecified; I67.2 Cerebral atherosclerosis
CPT/HCPCS: 36415; 80053; 80061; 83036; 84443; 85025; 94640; G0378; J1630; U0003

== ENCOUNTER 2022-04-06 15:50 | Inpatient (IN) | payer MEDICARE ==
[2022-04-06] MEDS ORDERED: ALBUTEROL 2.5 MG/3 ML NEBU IH PRN (15:59)
[2022-04-06] MEDS ORDERED: ONDANSETRON 4 MG/2 ML INJ IV PRN (15:59)
--- NOTE | 2022-04-06 15:59 | History and Physical Report ---
History of Present Illness Chief complaint: He is getting weaker History of present illness: 76 YO Male with Vascular Dementia with Behavioral disturbance, Cerebral Atherosclerosis, DM, BPH, HTN, Malnutrition, diagnosed with coronavirus Infection on 03/31/22 admitted directly to medical floor from [facility]. Patient is confused and lethargic with diminished cognition at the time my evaluation is unable to provide history. Patient history provided by [facility] staff, as well as the patient next of kin who was made available by telephone for interview. Patient staff reports that patient has experienced increased confusion and agitation over the past 36 hours with diminished oral intake. Patient is currently bedbound, nonambulatory and requires 5/6 assistance with activities of daily living. Patient has a palliative performance of 30%. Patient seen and evaluated in his room and found to have s ymptoms consistent with symptomatic coronavirus infection. Patient admitted to medical floor and initiated on coronavirus protocol. No reports of fever, chills, chest pain, palpitation, skin rash, recent ill contacts. No prior admission for review. All medication listed at time of admission has been reconciled. Advanced care planning conducted. Patient is confused, lethargic with diminished cognition at the time my evaluation but has a positive gag reflex and is able to protect his airway without difficulty. Past History Past Medical History: diabetes, hypertension, other (See HPI) Past Surgical History: No surgical history, Other (Reviewed) Social history: single, Lives alone. denies: smoking, alcohol abuse, prescription drug abuse Family history: diabetes, hypertension Medications and Allergies Allergies Allergy/AdvReac Type Severity Reaction Status Date / Time onion Allergy Unknown Verified 03/27/22 10:21 Home Medications Medication Instructions Recorded Confirmed Last Taken Type Albuterol Sulfate [Proair 90 mcg IH Q4HR 03/23/22 03/23/22 Unknown History Digihaler] Aspirin EC [Halfprin EC] 81 mg PO QDAY 03/23/22 03/23/22 Unknown History Cholecalciferol Vit D3 [Vitamin D3 2,000 unit PO QDAY 03/23/22 03/23/22 Unknown History 1,000 UNIT TAB] Fluticasone [Flonase] 1 spray NS QDAY 03/23/22 03/23/22 Unknown History Multivit-Min/FA/Lycopen/Lutein 1 each PO DAILY 03/23/22 03/23/22 Unknown History [Abc Plus Tablet] Tiotropium [Spiriva] 18 mcg IH QDAY 03/23/22 03/23/22 Unknown History Varenicline Tartrate 0.5 mg PO DAILY 03/23/22 03/23/22 Unknown History Review of Systems ROS unobtainable: due to mental status Exam - Constitutional General appearance: Present: mild distress, cachectic - EENT Eyes: Present: PERRL ENT: hearing intact, clear oral mucosa, other (Oral mucosa dry) - Neck Neck: Present: supple - Respiratory Respiratory effort: labored Respiratory: bilateral: diminished, rhonchi - Cardiovascular Rhythm: regular Heart Sounds: Present: S1 & S2 - Extremities Extremities: pulses symmetrical, No edema Peripheral Pulses: within normal limits - Abdominal General gastrointestinal: Present: soft, non-tender, non-distended, normal bowel sounds Male genitourinary: Present: normal - Integumentary Integumentary: Present: dry, clammy, decreased turgor - Musculoskeletal Musculoskeletal: generalized weakness - Psychiatric Psychiatric: no appropriate mood/affect, no intact judgment & insight, no memory intact - Neurologic Neurologic: CNII-XII intact, no focal deficits, moves all extremities, no gait normal Assessment and Plan - Patient Problems (1) Coronavirus infection Status: Acute Plan to address problem: Coronavirus protocol: IV antibiotic therapy, atorvastatin therapy as clinically indicated, vitamin C therapy, vitamin D therapy, zinc therapy, supplemental oxygen, pulse oximetry, prophylactic anticoagulation. (2) Vascular dementia with behavioral disturbance Status: Acute Plan to address problem: Verbal prompting, verbal redirection, benzodiazepine therapy as clinically indicated. (3) Cerebral atherosclerosis Status: Acute Plan to address problem: Risk factor reduction, antiplatelet therapy, supportive care. (4) Debility Status: Acute Plan to address problem: Bed alarm, fall precautions, supportive care. (5) Malnutrition Status: Acute Qualifiers: Protein-calorie malnutrition severity: moderate Plan to address problem: Increase protein intake, dietary supplementation when awake and alert only. Aspiration precautions. (6) Nicotine dependence Status: Acute Qualifiers: Nicotine product type: cigarettes Substance use status: in withdrawal Qualified Code(s): F17.213 - Nicotine dependence, cigarettes, with withdrawal Plan to address problem: Smoke cessation counseled, supportive care, behavior change counseled, pulse 50 minutes. (7) Volume depletion Status: Acute Plan to address problem: BMP, IV fluid resuscitation therapy, monitor fluid balance, repeat BMP in a.m. to monitor serum creatinine as well as GFR (8) Metabolic encephalopathy Status: Acute Plan to address problem: Supportive care, IV fluid resuscitation therapy, neuro check, (9) DVT prophylaxis Status: Acute Plan to address problem: SCD to bilateral extremities while in bed, prophylactic anticoagulation (10) Advance care planning Status: Acute Plan to address problem: Disease education done, care plan discussed, diagnoses discussed, prognosis discussed, patient is full code at this time. Discussed patient care with Quynh Britt, . The plan is to make patient DNR and plan for discharge to retirement facility with hospice care. Awaiting arrival of Ms. Britt to the hospital tomorrow for family conference. +30 minutes. (11) Preventative health care Status: Acute Plan to address problem: Counseled regarding patient diagnosis and patient prognosis. Home safety precautions. Patient to follow-up with primary care physician as outpatient for all age and risk factor appropriate screening test. +30 minutes.
[2022-04-06] MEDS: methylPREDNISolone Sod Succinate 40 MG/1 ML INJ IV SCH (20:20)
[2022-04-06] MEDS: cefTRIAXone/NS 2 GM/100 ML 2 GM/100 ML BAG IV SCH (20:20)
[2022-04-06] MEDS: ASCORBIC ACID 500 MG TAB PO SCH (21:36)
[2022-04-06] MEDS: ZINC SULFATE 220 MG CAP PO SCH (21:36)
[2022-04-06] MEDS: HEPARIN 5,000 UNIT/1 ML VIAL SUB-Q SCH (21:48)
[2022-04-06] MEDS: HYDROmorphone 0.5 MG/0.5 ML INJ IV PRN (21:49)
[2022-04-06] MEDS: SODIUM CHLORIDE 0.9% 1000 ML 1,000 ML IV SCH (21:55)
[2022-04-07] MEDS: methylPREDNISolone Sod Succinate 40 MG/1 ML INJ IV SCH ×3 (02:37→19:41)
[2022-04-07] MEDS ORDERED: HALOPERIDOL LACTATE 5 MG/1 ML INJ IM ONE (04:40)
[2022-04-07] MEDS: TIOTROPIUM 18 MCG CAP INHALATION IH SCH (07:26)
--- NOTE | 2022-04-07 08:36 | XRay Report ---
CHEST 1 VIEW 04/07/2022 7:50 AM INDICATION / CLINICAL INFORMATION: covid 19. COMPARISON: None available. FINDINGS: SUPPORT DEVICES: None. HEART / MEDIASTINUM: No significant abnormality. The aorta is mildly ectatic but well defined. LUNGS / PLEURA: No significant pulmonary or pleural abnormality. No pneumothorax. ADDITIONAL FINDINGS: No significant additional findings. IMPRESSION: 1. No acute findings. Signer Name: Rafi Clark Jr, MD Signed: 04/07/2022 8:31 AM Workstation Name: [id number]
[2022-04-07] MEDS ORDERED: [UNRECOGNIZED DRUG - OTHER] PO SCH (10:00)
[2022-04-07] MEDS ORDERED: LUTEIN PO SCH (10:00)
[2022-04-07] MEDS ORDERED: CHOLECALCIFEROL (VIT D3) 1000 UNIT (25 mcg) TAB PO SCH (10:00)
[2022-04-07] MEDS ORDERED: MULTIVIT MIN PO SCH (10:00)
[2022-04-07] MEDS ORDERED: LYCOPEN PO SCH (10:00)
[2022-04-07] MEDS ORDERED: VARENICLINE TARTRATE 0.5 MG PO SCH (10:00)
[2022-04-07] MEDS: ASCORBIC ACID 500 MG TAB PO SCH ×2 (10:24→21:24)
[2022-04-07] MEDS: ASPIRIN EC 81 MG TAB PO SCH (10:24)
[2022-04-07] MEDS: AZITHROMYCIN 250 MG TAB PO SCH (10:24)
[2022-04-07] MEDS: ZINC SULFATE 220 MG CAP PO SCH ×2 (10:25→21:24)
[2022-04-07] MEDS: CHOLECALCIFEROL (VIT D3) 1000 UNIT (25 mcg) TAB PO SCH (10:25)
[2022-04-07] MEDS: FLUTICASONE PROPIONATE NASAL SPRAY 16 GM NS SCH (10:32)
[2022-04-07] MEDS: HEPARIN 5,000 UNIT/1 ML VIAL SUB-Q SCH ×2 (10:32→21:24)
[2022-04-07] MEDS ORDERED: MELATONIN 5 MG TAB PO PRN (11:21)
[2022-04-07] MEDS ORDERED: LORazepam 2 MG/ML VIAL IV PRN (11:21)
--- NOTE | 2022-04-07 12:12 | Progress Note ---
Subjective - Reason for Consult Consult date: 04/07/22 Reason for consult: agitation - Chief Complaint Chief complaint: HPI: 76 YO Male with Vascular Dementia with Behavioral disturbance, Cerebral Atherosclerosis, DM, BPH, HTN, Malnutrition, diagnosed with coronavirus Infection on 03/31/22 admitted directly to medical floor from [facility]. Patient is confused and lethargic with diminished cognition at the time my evaluation is unable to provide history. Patient history provided by [facility] psych unit staff, as well as the patient next of kin who was made available by telephone for interview. Patient staff reports that patient has experienced inc reased confusion and agitation over the past 36 hours with diminished oral intake. Patient is currently bedbound, nonambulatory and requires 5/6 assistance with activities of daily living. Patient has a palliative performance of 30%. Patient seen and evaluated in his room and found to have symptoms consistent with symptomatic coronavirus infection. Patient admitted to medical floor and initiated on coronavirus protocol. No reports of fever, chills, chest pain, palpitation, skin rash, recent ill contacts. No prior admission for review. All medication listed at time of admission has been reconciled. Advanced care planning conducted. Patient is confused, lethargic with diminished cognition at the time my evaluation but has a positive gag reflex and is able to protect his airway without difficulty. This is a patient initially admitted to [facility] for dementia with behavioral disturbance. The patient was then transferred to the medical floor for poor appetite, weakness, and increasing confusion. The patient tested positive for COVID while on the [facility]-psych floor. During my evaluation of the patient today. He is lying in bed, partially disrobed. He is in restraints. He is confused, but does verbalize "feeling better today" when asked how was he doing. I asked the patient did he know where he was, he replies "wish I wasn't here." He then starts pulling against the restraints. He says "they got me now." I am unable to engage this patient in the evaluation due to his cognition. Will start Remeron to stimulate appetite and induce sleep. Appreciate and agree with lorazepam started for agitation. Will continue to follow this patient during his stay on the medical floor. REVIEW OF SYSTEMS Unable to assess MENTAL STATUS EXAMINATION Unable to assess Diagnoses: Dementia with behavioral disturbances Treatment Plan: Start Remeron 7.5mg po qhs to stimulate appetite and promote rest Appreciate and agree with Lorazepam for agitation Medical: Per primary Sitter: Defer to primary Disposition: Do not recommend inpatient psych treatment at this time. This may change once the patient is medically clear. Will follow for psych progress and med management Thank you Case staffed with Dr. Hebert Mental Status Exam - Vital signs Last Vital Signs Temp 98.1 F 04/07/22 06:26 Pulse 104 H 04/07/22 06:26 Resp 20 04/07/22 06:26 BP 117/71 04/07/22 06:26 Pulse Ox 97 04/07/22 07:26
[2022-04-07] MEDS: cefTRIAXone/NS 2 GM/100 ML 2 GM/100 ML BAG IV SCH (19:41)
[2022-04-07] MEDS: MIRTAZAPINE 15 MG TAB PO SCH (21:22)
[2022-04-07] MEDS: traZODone 50 MG TAB PO SCH (21:24)
[2022-04-08] MEDS: methylPREDNISolone Sod Succinate 40 MG/1 ML INJ IV SCH ×3 (02:29→18:10)
[2022-04-08 07:54] LABS: Basophils % (Auto) 0.1 % (0.0-1.8); Lymphocytes # (Auto) 0.3 K/mm3 (1.2-5.4); Lymphocytes % (Auto) 6.3 % (13.4-35.0); Mean Corpuscular HGB Conc 36 % (32-34); Mean Corpuscular Volume 88 fl (84-94); Monocytes # (Auto) 0.5 K/mm3 (0.0-0.8); Monocytes % (Auto) 9.8 % (0.0-7.3); Platelet Count 156 K/mm3 (140-440); Red Blood Count 4.24 M/mm3 (3.65-5.03); Red Cell Distribution Width 13.3 % (13.2-15.2)
[2022-04-08 08:06] LABS: Hematocrit 37.3 % (35.5-45.6); Hemoglobin 13.6 gm/dl (11.8-15.2)
[2022-04-08 08:32] LABS: BUN/Creatinine Ratio 33; Blood Urea Nitrogen 26 mg/dL (9-20); Hemolysis Index 5
[2022-04-08] MEDS: TIOTROPIUM 18 MCG CAP INHALATION IH SCH (09:17)
[2022-04-08] MEDS: HEPARIN 5,000 UNIT/1 ML VIAL SUB-Q SCH ×2 (13:40→21:50)
[2022-04-08] MEDS: FLUTICASONE PROPIONATE NASAL SPRAY 16 GM NS SCH (13:48)
[2022-04-08] MEDS: CHOLECALCIFEROL (VIT D3) 1000 UNIT (25 mcg) TAB PO SCH (13:48)
[2022-04-08] MEDS: ASCORBIC ACID 500 MG TAB PO SCH ×2 (13:48→21:49)
[2022-04-08] MEDS: ASPIRIN EC 81 MG TAB PO SCH (13:48)
[2022-04-08] MEDS: ZINC SULFATE 220 MG CAP PO SCH ×2 (13:49→21:49)
[2022-04-08] MEDS: AZITHROMYCIN 250 MG TAB PO SCH (13:49)
--- NOTE | 2022-04-08 14:56 | Progress Note ---
Subjective - Reason for Consult Consult date: 04/08/22 Reason for consult: Dementia - Chief Complaint Chief complaint: HPI: 76 YO Male with Vascular Dementia with Behavioral disturbance, Cerebral Atherosclerosis, DM, BPH, HTN, Malnutrition, diagnosed with coronavirus Infection on 03/31/22 admitted directly to medical floor from [facility]. Patient is confused and lethargic with diminished cognition at the time my evaluation is unable to provide history. Patient history provided by [facility] psych unit staff, as well as the patient next of kin who was made available by telephone for interview. Patient staff reports that patient has experienced increased confusion and agitation over the past 36 hours with diminished oral intake. Patient is currently bedbound, nonambulatory and requires 5/6 assistance with activities of daily living. Patient has a palliative performance of 30%. Patient seen and evaluated in his room and found to have symptoms consistent with symptomatic coronavirus infection. Patient admitted to medical floor and initiated on coronavirus protocol. No reports of fever, chills, chest pain, palpitation, skin rash, recent ill contacts. No prior admission for review. All medication listed at time of admission has been r econciled. Advanced care planning conducted. Patient is confused, lethargic with diminished cognition at the time my evaluation but has a positive gag reflex and is able to protect his airway without difficulty. This is a patient initially admitted to [facility] for dementia with behavioral disturbance. The patient was then transferred to the medical floor for poor appetite, weakness, and increasing confusion. The patient tested positive for COVID while on the [facility] floor. During my evaluation of the patient today. He is lying in bed, partially disrobed. He is in restraints. He is confused, but does verbalize "feeling better today" when asked how was he doing. I asked the patient did he know where he was, he replies "wish I wasn't here." He then starts pulling against the restraints. He says "they got me now." I am unable to engage this patient in the evaluation due to his cognition. Will start Remeron to stimulate appetite and induce sleep. Appreciate and agree with lorazepam started for agitation. Will continue to follow this patient during his stay on the medical floor. 04/08: The patient was seen today. He is resting quietly in bed. REVIEW OF SYSTEMS Unable to assess MENTAL STATUS EXAMINATION Unable to assess Diagnoses: Dementia with behavioral disturbances Treatment Plan: Continue Remeron 7.5mg po qhs to stimulate appetite and promote rest Appreciate and agree with Lorazepam for agitation Medical: Per primary Sitter: Defer to primary Disposition: Do not recommend inpatient psych treatment at this time. This may change once the patient is medically clear. Will follow for psych progress and med management Thank you Case staffed with Dr. Hebert Mental Status Exam - Vital signs Last Vital Signs Temp 98.8 F 04/08/22 11:18 Pulse 90 04/08/22 11:18 Resp 14 04/08/22 11:18 BP 150/45 04/08/22 11:18 Pulse Ox 98 04/08/22 11:18
[2022-04-08] MEDS: cefTRIAXone/NS 2 GM/100 ML 2 GM/100 ML BAG IV SCH (18:10)
[2022-04-08] MEDS: SODIUM CHLORIDE 0.9% 1000 ML 1,000 ML IV SCH (18:32)
[2022-04-08] MEDS: MIRTAZAPINE 15 MG TAB PO SCH (21:48)
[2022-04-08] MEDS: traZODone 50 MG TAB PO SCH (21:49)
[2022-04-08] MEDS: LORazepam 2 MG/ML VIAL IV PRN (21:51)
[2022-04-09] MEDS: methylPREDNISolone Sod Succinate 40 MG/1 ML INJ IV SCH ×2 (02:21→10:45)
[2022-04-09] MEDS: TIOTROPIUM 18 MCG CAP INHALATION IH SCH (07:33)
[2022-04-09] MEDS: FLUTICASONE PROPIONATE NASAL SPRAY 16 GM NS SCH ×2 (10:44→10:57)
[2022-04-09] MEDS: CHOLECALCIFEROL (VIT D3) 1000 UNIT (25 mcg) TAB PO SCH ×2 (10:44→10:57)
[2022-04-09] MEDS: ASPIRIN EC 81 MG TAB PO SCH (10:44)
[2022-04-09] MEDS: ASCORBIC ACID 500 MG TAB PO SCH ×3 (10:44→23:00)
[2022-04-09] MEDS: ZINC SULFATE 220 MG CAP PO SCH ×3 (10:44→23:00)
[2022-04-09] MEDS: HEPARIN 5,000 UNIT/1 ML VIAL SUB-Q SCH ×2 (10:45→23:26)
[2022-04-09] MEDS: AZITHROMYCIN 250 MG TAB PO SCH ×2 (10:46→10:59)
[2022-04-09] MEDS: traZODone 50 MG TAB PO SCH (23:00)
[2022-04-09] MEDS: MIRTAZAPINE 15 MG TAB PO SCH (23:27)
[2022-04-10] MEDS: methylPREDNISolone Sod Succinate 40 MG/1 ML INJ IV SCH ×4 (00:12→19:41)
[2022-04-10] MEDS: cefTRIAXone/NS 2 GM/100 ML 2 GM/100 ML BAG IV SCH ×2 (00:12→19:40)
[2022-04-10] MEDS: ZINC SULFATE 220 MG CAP PO SCH ×3 (10:12→23:00)
[2022-04-10] MEDS: ASCORBIC ACID 500 MG TAB PO SCH ×3 (10:15→23:00)
[2022-04-10] MEDS: AZITHROMYCIN 250 MG TAB PO SCH (10:15)
[2022-04-10] MEDS: CHOLECALCIFEROL (VIT D3) 1000 UNIT (25 mcg) TAB PO SCH (10:15)
[2022-04-10] MEDS: ASPIRIN EC 81 MG TAB PO SCH (10:15)
[2022-04-10] MEDS: HEPARIN 5,000 UNIT/1 ML VIAL SUB-Q SCH ×2 (10:20→23:39)
[2022-04-10] MEDS: TIOTROPIUM 18 MCG CAP INHALATION IH SCH (13:47)
[2022-04-10] MEDS: FLUTICASONE PROPIONATE NASAL SPRAY 16 GM NS SCH (19:34)
[2022-04-10] MEDS: SODIUM CHLORIDE 0.9% 1000 ML 1,000 ML IV SCH (19:41)
[2022-04-10] MEDS: MIRTAZAPINE 15 MG TAB PO SCH (23:00)
[2022-04-10] MEDS: traZODone 50 MG TAB PO SCH (23:00)
[2022-04-10] MEDS: LORazepam 2 MG/ML VIAL IV PRN (23:52)
[2022-04-11] MEDS: methylPREDNISolone Sod Succinate 40 MG/1 ML INJ IV SCH ×3 (01:17→18:31)
[2022-04-11] MEDS: TIOTROPIUM 18 MCG CAP INHALATION IH SCH (09:19)
--- NOTE | 2022-04-11 10:52 | Progress Note ---
Assessment and Plan - Patient Problems (1) Coronavirus infection Current Visit: No Status: Acute Plan to address problem: Coronavirus protocol: IV antibiotic therapy, atorvastatin therapy as clinically indicated, vitamin C therapy, vitamin D therapy, zinc therapy, supplemental oxygen, pulse oximetry, prophylactic anticoagulation. (2) Vascular dementia with behavioral disturbance Current Visit: No Status: Acute Plan to address problem: Verbal prompting, verbal redirection, benzodiazepine therapy as clinically indicated. (3) Cerebral atherosclerosis Current Visit: No Status: Acute Plan to address problem: Risk factor reduction, antiplatelet therapy, supportive care. (4) Debility Current Visit: No Status: Acute Plan to address problem: Bed alarm, fall precautions, supportive care. (5) Malnutrition Current Visit: No Status: Acute Qualifiers: Protein-calorie malnutrition severity: moderate Plan to address problem: Increase protein intake, dietary supplementation when awake and alert only. Aspiration precautions. (6) Nicotine dependence Current Visit: No Status: Acute Qualifiers: Nicotine product type: cigarettes Substance use status: in withdrawal Qualified Code(s): F17.213 - Nicotine dependence, cigarettes, with withdrawal Plan to address problem: Smoke cessation counseled, supportive care, behavior change counseled, pulse 50 minutes. (7) Volume depletion Current Visit: No Status: Acute Plan to address problem: BMP, IV fluid resuscitation therapy, monitor fluid balance, repeat BMP in a.m. to monitor serum creatinine as well as GFR (8) Metabolic encephalopathy Current Visit: No Status: Acute Plan to address problem: Supportive care, IV fluid resuscitation therapy, neuro check, (9) DVT prophylaxis Current Visit: No Status: Acute Plan to address problem: SCD to bilateral extremities while in bed, prophylactic anticoagulation (10) Advance care planning Current Visit: No Status: Acute Plan to address problem: Disease education done, care plan discussed, diagnoses discussed, prognosis discussed, patient is full code at this time. Discussed patient care with Quynh Britt, . The plan is to make patient DNR and plan for discharge to [facility] with [facility] care. Awaiting arrival of Ms. Britt to the hospital tomorrow for family conference. +30 minutes. (11) Preventative health care Current Visit: No Status: Acute Plan to address problem: Counseled regarding patient diagnosis and patient prognosis. Home safety precautions. Patient to follow-up with primary care physician as outpatient for all age and risk factor appropriate screening test. +30 minutes. History Interval history: 76 YO Male with Vascular Dementia with Behavioral disturbance, Cerebral Athe rosclerosis, DM, BPH, HTN, Malnutrition, coronavirus Infection Patient is confused, lethargic with diminished cognition at the time my evaluation. Patient remains at baseline level of cognition and function. Hospice team consulted. Case management consulted. Discharge planning to [facility] facility with hospice care. Hospitalist Physical - Constitutional Vitals: Temp Pulse Resp BP Pulse Ox 97.2 F L 94 H 15 148/96 96 04/11/22 05:28 04/11/22 05:28 04/11/22 08:00 04/11/22 05:28 04/11/22 08:00 General appearance: Present: mild distress, cachectic - EENT Eyes: Present: PERRL ENT: hearing decreased - Neck Neck: Present: supple - Respiratory Respiratory effort: normal Respiratory: bilateral: diminished - Cardiovascular Rhythm: regular Heart Sounds: Present: S1 & S2 - Extremities Extremities: no ischemia Peripheral Pulses: within normal limits - Abdominal General gastrointestinal: soft, non-tender, non-distended - Integumentary Integumentary: Present: dry - Psychiatric Psychiatric: cooperative - Neurologic Neurologic: CNII-XII intact Results - Labs CBC & Chem 7: 04/08/22 07:15 04/08/22 07:15 Labs: Laboratory Last Values WBC 5.4 K/mm3 (4.5-11.0) 04/08/22 07:15 RBC 4.24 M/mm3 (3.65-5.03) 04/08/22 07:15 Hgb 13.6 gm/dl (11.8-15.2) 04/08/22 07:15 Hct 37.3 % (35.5-45.6) 04/08/22 07:15 MCV 88 fl (84-94) 04/08/22 07:15 MCH 32 pg (28-32) 04/08/22 07:15 MCHC 36 % (32-34) H 04/08/22 07:15 RDW 13.3 % (13.2-15.2) 04/08/22 07:15 Plt Count 156 K/mm3 (140-440) 04/08/22 07:15 Lymph % (Auto) 6.3 % (13.4-35.0) L 04/08/22 07:15 [place] % (Auto) 9.8 % (0.0-7.3) H 04/08/22 07:15 Eos % (Auto) 0.0 % (0.0-4.3) 04/08/22 07:15 Baso % (Auto) 0.1 % (0.0-1.8) 04/08/22 07:15 Lymph # (Auto) 0.3 K/mm3 (1.2-5.4) L 04/08/22 07:15 [place] # (Auto) 0.5 K/mm3 (0.0-0.8) 04/08/22 07:15 Eos # (Auto) 0.0 K/mm3 (0.0-0.4) 04/08/22 07:15 Baso # (Auto) 0.0 K/mm3 (0.0-0.1) 04/08/22 07:15 Seg Neutrophils % 83.8 % (40.0-70.0) H 04/08/22 07:15 Seg Neutrophils # 4.6 K/mm3 (1.8-7.7) 04/08/22 07:15 Sodium 142 mmol/L (137-145) 04/08/22 07:15 Potassium 4.7 mmol/L (3.6-5.0) 04/08/22 07:15 Chloride 103.9 mmol/L (98-107) 04/08/22 07:15 Carbon Dioxide 28 mmol/L (22-30) 04/08/22 07:15 Anion Gap 15 mmol/L 04/08/22 07:15 BUN 26 mg/dL (9-20) H 04/08/22 07:15 Creatinine 0.8 mg/dL (0.8-1.3) 04/08/22 07:15 Estimated GFR > 60 ml/min 04/08/22 07:15 BUN/Creatinine Ratio 33 % 04/08/22 07:15 Glucose 133 mg/dL (75-100) H 04/08/22 07:15 Calcium 9.0 mg/dL (8.4-10.2) 04/08/22 07:15 [place]/IV: Voiding Method Incontinent Active Medications - Current Medications Current Medications: Generic Name Dose Route Start Last Admin Trade Name Freq PRN Reason Stop Dose Admin Acetaminophen 650 mg 04/06/22 15:59 Acetaminophen 325 Mg Tab PO Q4H PRN Pain MILD(1-3)/Fever >100.5/MCKENZIE Albuterol 2.5 mg 04/06/22 15:59 Albuterol 2.5 Mg/3 Ml Nebu IH Q4HRT PRN Shortness Of Breath Ascorbic Acid 500 mg 04/06/22 22:00 04/10/22 23:00 Ascorbic Acid 500 Mg Tab PO Not Given BID GALINA Aspirin 81 mg 04/07/22 10:00 04/10/22 10:15 Aspirin Ec 81 Mg Tab PO 81 mg QDAY GALINA Administration Cholecalciferol 1,000 unit 04/07/22 10:00 04/10/22 10:15 Cholecalciferol (Vit D3) 1000 Unit (25 Mcg) Tab PO 1,000 unit QDAY GALINA Administration Fluticasone Propionate 50 mcg 04/07/22 10:00 04/10/22 19:34 Fluticasone Propionate Nasal [place] 16 Gm NS Not Given QDAY GALINA Heparin Sodium (Porcine) 5,000 unit 04/06/22 22:00 04/10/22 23:39 Heparin 5,000 Unit/1 Ml Vial SUB-Q 5,000 unit Q12HR GALINA Administration Hydromorphone HCl 0.5 mg 04/06/22 15:59 04/06/22 21:49 Hydromorphone 0.5 Mg/0.5 Ml Inj IV 0.5 mg Q23H PRN Administration Pain , Severe (7-10) Sodium Chloride 1,000 mls @ 42 mls/hr 04/06/22 16:15 04/10/22 19:41 Nacl 0.9% 1000 Ml IV 42 mls/hr DIRECT GALINA Administration Ceftriaxone Sodium 2 gm in 100 mls @ 200 mls/hr 04/06/22 18:00 04/10/22 19:40 Rocephin/Ns 2 Gm/100 Ml IV 04/11/22 17:59 200 mls/hr Q24H GALINA Administration Protocol Lorazepam 0.5 mg 04/08/22 15:00 04/10/22 23:52 Lorazepam 2 Mg/Ml Vial IV 0.5 mg Q23H PRN Administration Agitation Melatonin 5 mg 04/07/22 11:21 Melatonin 5 Mg Tab PO QHS PRN Sleep Methylprednisolone Sodium Succinate 40 mg 04/06/22 18:00 04/11/22 01:17 Methylprednisolone Sod Succinate 40 Mg/1 Ml Inj IV 40 mg Q8H GALINA Administration Mirtazapine 7.5 mg 04/07/22 22:00 04/10/22 23:00 Mirtazapine 15 Mg Tab PO 7.5 mg QHS GALINA Administration Ondansetron HCl 4 mg 04/06/22 15:59 Ondansetron 4 Mg/2 Ml Inj IV Q8H PRN Nausea And Vomiting Oxycodone/Acetaminophen 1 tab 04/06/22 15:59 Oxycodone /Acetaminophen 5-325mg Tab PO Q16H PRN Pain, Moderate (4-6) Sodium Chloride 10 ml 04/06/22 22:00 04/10/22 23:41 Sodium Chloride 0.9% 10 Ml Flush Syringe IV 10 ml BID GALINA Administration Sodium Chloride 10 ml 04/06/22 15:59 Sodium Chloride 0.9% 10 Ml Flush Syringe IV PRN PRN LINE FLUSH Tiotropium [place] 1 puff 04/07/22 10:00 04/11/22 09:19 Tiotropium 18 Mcg Cap Inhalation IH Not Given QDAY GALINA Trazodone HCl 50 mg 04/07/22 22:00 04/10/22 23:00 Trazodone 50 Mg Tab PO 50 mg QHS GALINA Administration Zinc Sulfate 220 mg 04/06/22 22:00 04/10/22 23:00 Zinc Sulfate 220 Mg Cap PO Not Given BID GALINA Nutrition/Malnutrition Assess - Dietary Evaluation Nutrition/Malnutrition Findings: Nutrition Notes Start: 04/07/22 15:47 Freq: Status: Active Protocol: Document 04/07/22 15:48 FARIBA (Rec: 04/07/22 16:09 FARIBA [id number]) Nutrition Notes 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 Current Diet Regular Diet (since D 04/06). Labs/Tests 04/07: N/A. Pertinent Medications 04/07: Vit C, Vit D3, ZnSO4, others nutritionally unremarkable. 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 Weight Status Appropriate Subjective/Other Information RD consult for skin risk and risk of malnutrition assessments. Pt's PO intake of meals has been Good (75%), according to ADL notes. Pt is on Room Air, O2 saturation @ 93%, according to Physical Assessment History notes. Pt transferred from Geriatric/ Psychiatric Unit due to COVID- 19 infection, according to Progress notes. Psychiatric treatment deferred until clinically cleared, according to Progress notes. Pt shows no signs of concern for skin risk at the time, according to Physical Assessment History notes. Pt shows no signs of concern for risk of malnutrition at the time, according to Physical Assessment History notes. Percent of energy/protein needs met: Prescribed Regular Diet provides for energy/protein needs (2,289 Kcal/89 g) during LOS. Burn Absent Trauma Absent GI Symptoms None Food Allergy Yes Skin Integrity/Comment Assessment WNL. Current % PO Good (75-100%) Minimum of two criteria No Fluid Accumulation N/A Reduced Salicylic Acid Blender Strength N/A (non-severe) Protein-Calorie Malnutrition N\A #1 Nutrition Diagnosis No nutrition diagnosis at this time Is patient on ventilator? No Is Patient Ambulatory and/or Out of Bed Yes REE-([place]-ambulatory/OOB) [ 1416.025 NUTR.[id number]] Kcal/Kg value to use for calculation 27 Approximate Energy Requirements Using 1269 kcal/Kg Calculation Used for Recommendations Kcal/kg Additional Notes Protein: 1-1.2 g/Kg IBW; 54-65 g/day. Fluids: 1 ml/Kcal, or as per MD. Nutrition Intervention Change Diet Order: Continue Regular Diet as tolerated. Follow-Up By: 04/14/22 Additional Comments Continue monitoring food tolerance, %PO intake of meals , and BM.
--- NOTE | 2022-04-11 10:58 | Progress Note ---
Assessment and Plan - Patient Problems (1) Coronavirus infection Current Visit: No Status: Acute Plan to address problem: Coronavirus protocol: IV antibiotic therapy, atorvastatin therapy as clinically indicated, vitamin C therapy, vitamin D therapy, zinc therapy, supplemental oxygen, pulse oximetry, prophylactic anticoagulation. (2) Vascular dementia with behavioral disturbance Current Visit: No Status: Acute Plan to address problem: Verbal prompting, verbal redirection, benzodiazepine therapy as clinically indicated. (3) Cerebral atherosclerosis Current Visit: No Status: Acute Plan to address problem: Risk factor reduction, antiplatelet therapy, supportive care. (4) Debility Current Visit: No Status: Acute Plan to address problem: Bed alarm, fall precautions, supportive care. (5) Malnutrition Current Visit: No Status: Acute Qualifiers: Protein-calorie malnutrition severity: moderate Plan to address problem: Increase protein intake, dietary supplementation when awake and alert only. Aspiration precautions. (6) Nicotine dependence Current Visit: No Status: Acute Qualifiers: Nicotine product type: cigarettes Substance use status: in withdrawal Qualified Code(s): F17.213 - Nicotine dependence, cigarettes, with withdrawal Plan to address problem: Smoke cessation counseled, supportive care, behavior change counseled, pulse 50 minutes. (7) Volume depletion Current Visit: No Status: Acute Plan to address problem: BMP, IV fluid resuscitation therapy, monitor fluid balance, repeat BMP in a.m. to monitor serum creatinine as well as GFR (8) Metabolic encephalopathy Current Visit: No Status: Acute Plan to address problem: Supportive care, IV fluid resuscitation therapy, neuro check, (9) DVT prophylaxis Current Visit: No Status: Acute Plan to address problem: SCD to bilateral extremities while in bed, prophylactic anticoagulation (10) Advance care planning Current Visit: No Status: Acute Plan to address problem: Disease education done, care plan discussed, diagnoses discussed, prognosis discussed, patient is full code at this time. Discussed patient care with Quynh Britt, . The plan is to make patient DNR and [facility]. Awaiting arrival of Ms. Britt to the hospital tomorrow for family conference. +30 minutes. (11) Preventative health care Current Visit: No Status: Acute Plan to address problem: Counseled regarding patient diagnosis and patient prognosis. Home safety precautions. Patient to follow-up with primary care physician as outpatient for all age and risk factor appropriate screening test. +30 minutes. History Interval history: 76 YO Male HD #3 with Vascular Dementia with Behavioral disturbance, Cerebral Atherosclerosis, DM, BPH, HTN, Malnutrition, Coronavirus Infection. Patient remains confused, lethargic with diminished cognition. Patient remains at baseline level of cognition and function. Hospice team consulted. Case management consulted. [facility]. Hospitalist Physical - Constitutional Vitals: Temp Pulse Resp BP Pulse Ox 97.2 F L 94 H 15 148/96 96 04/11/22 05:28 04/11/22 05:28 04/11/22 08:00 04/11/22 05:28 04/11/22 08:00 General appearance: Present: mild distress, cachectic - EENT Eyes: Present: PERRL ENT: hearing intact - Neck Neck: Present: supple - Respiratory Respiratory effort: labored Respiratory: bilateral: diminished - Cardiovascular Rhythm: regular Heart Sounds: Present: S1 & S2 - Extremities Extremities: no ischemia Peripheral Pulses: within normal limits - Abdominal General gastrointestinal: soft, non-tender, non-distended - Integumentary Integumentary: Present: clear, dry - Psychiatric Psychiatric: cooperative - Neurologic Neurologic: CNII-XII intact Results - Labs CBC & Chem 7: 04/08/22 07:15 04/08/22 07:15 Labs: Laboratory Last Values WBC 5.4 K/mm3 (4.5-11.0) 04/08/22 07:15 RBC 4.24 M/mm3 (3.65-5.03) 04/08/22 07:15 Hgb 13.6 gm/dl (11.8-15.2) 04/08/22 07:15 Hct 37.3 % (35.5-45.6) 04/08/22 07:15 MCV 88 fl (84-94) 04/08/22 07:15 MCH 32 pg (28-32) 04/08/22 07:15 MCHC 36 % (32-34) H 04/08/22 07:15 RDW 13.3 % (13.2-15.2) 04/08/22 07:15 Plt Count 156 K/mm3 (140-440) 04/08/22 07:15 Lymph % (Auto) 6.3 % (13.4-35.0) L 04/08/22 07:15 [place] % (Auto) 9.8 % (0.0-7.3) H 04/08/22 07:15 Eos % (Auto) 0.0 % (0.0-4.3) 04/08/22 07:15 Baso % (Auto) 0.1 % (0.0-1.8) 04/08/22 07:15 Lymph # (Auto) 0.3 K/mm3 (1.2-5.4) L 04/08/22 07:15 [place] # (Auto) 0.5 K/mm3 (0.0-0.8) 04/08/22 07:15 Eos # (Auto) 0.0 K/mm3 (0.0-0.4) 04/08/22 07:15 Baso # (Auto) 0.0 K/mm3 (0.0-0.1) 04/08/22 07:15 Seg Neutrophils % 83.8 % (40.0-70.0) H 04/08/22 07:15 Seg Neutrophils # 4.6 K/mm3 (1.8-7.7) 04/08/22 07:15 Sodium 142 mmol/L (137-145) 04/08/22 07:15 Potassium 4.7 mmol/L (3.6-5.0) 04/08/22 07:15 Chloride 103.9 mmol/L (98-107) 04/08/22 07:15 Carbon Dioxide 28 mmol/L (22-30) 04/08/22 07:15 Anion Gap 15 mmol/L 04/08/22 07:15 BUN 26 mg/dL (9-20) H 04/08/22 07:15 Creatinine 0.8 mg/dL (0.8-1.3) 04/08/22 07:15 Estimated GFR > 60 ml/min 04/08/22 07:15 BUN/Creatinine Ratio 33 % 04/08/22 07:15 Glucose 133 mg/dL (75-100) H 04/08/22 07:15 Calcium 9.0 mg/dL (8.4-10.2) 04/08/22 07:15 Kaufman/IV: Voiding Method Incontinent Active Medications - Current Medications Current Medications: Generic Name Dose Route Start Last Admin Trade Name Freq PRN Reason Stop Dose Admin Acetaminophen 650 mg 04/06/22 15:59 Acetaminophen 325 Mg Tab PO Q4H PRN Pain MILD(1-3)/Fever >100.5/MCKENZIE Albuterol 2.5 mg 04/06/22 15:59 Albuterol 2.5 Mg/3 Ml Nebu IH Q4HRT PRN Shortness Of Breath Ascorbic Acid 500 mg 04/06/22 22:00 04/10/22 23:00 Ascorbic Acid 500 Mg Tab PO Not Given BID GALINA Aspirin 81 mg 04/07/22 10:00 04/10/22 10:15 Aspirin Ec 81 Mg Tab PO 81 mg QDAY GALINA Administration Cholecalciferol 1,000 unit 04/07/22 10:00 04/10/22 10:15 Cholecalciferol (Vit D3) 1000 Unit (25 Mcg) Tab PO 1,000 unit QDAY GALINA Administration Fluticasone Propionate 50 mcg 04/07/22 10:00 04/10/22 19:34 Fluticasone Propionate Nasal [place] 16 Gm NS Not Given QDAY GALINA Heparin Sodium (Porcine) 5,000 unit 04/06/22 22:00 04/10/22 23:39 Heparin 5,000 Unit/1 Ml Vial SUB-Q 5,000 unit Q12HR GALINA Administration Hydromorphone HCl 0.5 mg 04/06/22 15:59 04/06/22 21:49 Hydromorphone 0.5 Mg/0.5 Ml Inj IV 0.5 mg Q23H PRN Administration Pain , Severe (7-10) Sodium Chloride 1,000 mls @ 42 mls/hr 04/06/22 16:15 04/10/22 19:41 Nacl 0.9% 1000 Ml IV 42 mls/hr DIRECT GALINA Administration Ceftriaxone Sodium 2 gm in 100 mls @ 200 mls/hr 04/06/22 18:00 04/10/22 19:40 Rocephin/Ns 2 Gm/100 Ml IV 04/11/22 17:59 200 mls/hr Q24H GALINA Administration Protocol Lorazepam 0.5 mg 04/08/22 15:00 04/10/22 23:52 Lorazepam 2 Mg/Ml Vial IV 0.5 mg Q23H PRN Administration Agitation Melatonin 5 mg 04/07/22 11:21 Melatonin 5 Mg Tab PO QHS PRN Sleep Methylprednisolone Sodium Succinate 40 mg 04/06/22 18:00 04/11/22 01:17 Methylprednisolone Sod Succinate 40 Mg/1 Ml Inj IV 40 mg Q8H GALINA Administration Mirtazapine 7.5 mg 04/07/22 22:00 04/10/22 23:00 Mirtazapine 15 Mg Tab PO 7.5 mg QHS GALINA Administration Ondansetron HCl 4 mg 04/06/22 15:59 Ondansetron 4 Mg/2 Ml Inj IV Q8H PRN Nausea And Vomiting Oxycodone/Acetaminophen 1 tab 04/06/22 15:59 Oxycodone /Acetaminophen 5-325mg Tab PO Q16H PRN Pain, Moderate (4-6) Sodium Chloride 10 ml 04/06/22 22:00 04/10/22 23:41 Sodium Chloride 0.9% 10 Ml Flush Syringe IV 10 ml BID GALINA Administration Sodium Chloride 10 ml 04/06/22 15:59 Sodium Chloride 0.9% 10 Ml Flush Syringe IV PRN PRN LINE FLUSH Tiotropium [place] 1 puff 04/07/22 10:00 04/11/22 09:19 Tiotropium 18 Mcg Cap Inhalation IH Not Given QDAY GALINA Trazodone HCl 50 mg 04/07/22 22:00 04/10/22 23:00 Trazodone 50 Mg Tab PO 50 mg QHS GALINA Administration Zinc Sulfate 220 mg 04/06/22 22:00 04/10/22 23:00 Zinc Sulfate 220 Mg Cap PO Not Given BID GALINA Nutrition/Malnutrition Assess - Dietary Evaluation Nutrition/Malnutrition Findings: Nutrition Notes Start: 04/07/22 15:47 Freq: Status: Active Protocol: Document 04/07/22 15:48 FARIBA (Rec: 04/07/22 16:09 FARIBA [id number]) Nutrition Notes 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 Current Diet Regular Diet (since D 04/06). Labs/Tests 04/07: N/A. Pertinent Medications 04/07: Vit C, Vit D3, ZnSO4, others nutritionally unremarkable. 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 Weight Status Appropriate Subjective/Other Information RD consult for skin risk and risk of malnutrition assessments. Pt's PO intake of meals has been Good (75%), according to ADL notes. Pt is on Room Air, O2 saturation @ 93%, according to Physical Assessment History notes. Pt transferred from Geriatric/ Psychiatric Unit due to COVID- 19 infection, according to Progress notes. Psychiatric treatment deferred until clinically cleared, according to Progress notes. Pt shows no signs of concern for skin risk at the time, according to Physical Assessment History notes. Pt shows no signs of concern for risk of malnutrition at the time, according to Physical Assessment History notes. Percent of energy/protein needs met: Prescribed Regular Diet provides for energy/protein needs (2,289 Kcal/89 g) during LOS. Burn Absent Trauma Absent GI Symptoms None Food Allergy Yes Skin Integrity/Comment Assessment WNL. Current % PO Good (75-100%) Minimum of two criteria No Fluid Accumulation N/A Reduced Services Executive Strength N/A (non-severe) Protein-Calorie Malnutrition N\A #1 Nutrition Diagnosis No nutrition diagnosis at this time Is patient on ventilator? No Is Patient Ambulatory and/or Out of Bed Yes REE-([facility]-ambulatory/OOB) [ 1416.025 NUTR.MSJOOB] Kcal/Kg value to use for calculation 27 Approximate Energy Requirements Using 1269 kcal/Kg Calculation Used for Recommendations Kcal/kg Additional Notes Protein: 1-1.2 g/Kg IBW; 54-65 g/day. Fluids: 1 ml/Kcal, or as per MD. Nutrition Intervention Change Diet Order: Continue Regular Diet as tolerated. Follow-Up By: 04/14/22 Additional Comments Continue monitoring food tolerance, %PO intake of meals , and BM.
--- NOTE | 2022-04-11 10:59 | Progress Note ---
Assessment and Plan - Patient Problems (1) Coronavirus infection Current Visit: No Status: Acute Plan to address problem: Coronavirus protocol: IV antibiotic therapy, atorvastatin therapy as clinically indicated, vitamin C therapy, vitamin D therapy, zinc therapy, supplemental oxygen, pulse oximetry, prophylactic anticoagulation. (2) Vascular dementia with behavioral disturbance Current Visit: No Status: Acute Plan to address problem: Verbal prompting, verbal redirection, benzodiazepine therapy as clinically indicated. (3) Cerebral atherosclerosis Current Visit: No Status: Acute Plan to address problem: Risk factor reduction, antiplatelet therapy, supportive care. (4) Debility Current Visit: No Status: Acute Plan to address problem: Bed alarm, fall precautions, supportive care. (5) Malnutrition Current Visit: No Status: Acute Qualifiers: Protein-calorie malnutrition severity: moderate Plan to address problem: Increase protein intake, dietary supplementation when awake and alert only. Aspiration precautions. (6) Nicotine dependence Current Visit: No Status: Acute Qualifiers: Nicotine product type: cigarettes Substance use status: in withdrawal Qualified Code(s): F17.213 - Nicotine dependence, cigarettes, with withdrawal Plan to address problem: Smoke cessation counseled, supportive care, behavior change counseled, pulse 50 minutes. (7) Volume depletion Current Visit: No Status: Acute Plan to address problem: BMP, IV fluid resuscitation therapy, monitor fluid balance, repeat BMP in a.m. to monitor serum creatinine as well as GFR (8) Metabolic encephalopathy Current Visit: No Status: Acute Plan to address problem: Supportive care, IV fluid resuscitation therapy, neuro check, (9) DVT prophylaxis Current Visit: No Status: Acute Plan to address problem: SCD to bilateral extremities while in bed, prophylactic anticoagulation (10) Advance care planning Current Visit: No Status: Acute Plan to address problem: Disease education done, care plan discussed, diagnoses discussed, prognosis discussed, patient is full code at this time. Discussed patient care with Quynh Britt, . The plan is to make patient DNR and plan for [facility]. Awaiting arrival of Ms. Britt to the hospital tomorrow for family conference. +30 minutes. (11) Preventative health care Current Visit: No Status: Acute Plan to address problem: Counseled regarding patient diagnosis and patient prognosis. Home safety precautions. Patient to follow-up with primary care physician as outpatient for all age and risk factor appropriate screening test. +30 minutes. History Interval history: 76 YO Male HD #4 with Vascular Dementia with Behavioral disturbance, Cerebral Atherosclerosis, DM, BPH, HTN, Malnutrition, Coronavirus Infection. Patient remains confused, lethargic with diminished cognition. Patient remains at baseline level of cognition and function. Hospice team consulted. Case management consulted. [facility]charge planning to [facility] with [facility] care. Hospitalist Physical - Constitutional Vitals: Temp Pulse Resp BP Pulse Ox 97.2 F L 94 H 15 148/96 96 04/11/22 05:28 04/11/22 05:28 04/11/22 08:00 04/11/22 05:28 04/11/22 08:00 General appearance: Present: mild distress, cachectic - EENT Eyes: Present: PERRL ENT: hearing decreased - Respiratory Respiratory effort: normal Respiratory: bilateral: diminished - Cardiovascular Rhythm: regular Heart Sounds: Present: S1 & S2 - Extremities Extremities: no ischemia Peripheral Pulses: within normal limits - Abdominal General gastrointestinal: soft, non-tender, non-distended - Integumentary Integumentary: Present: clear, dry - Psychiatric Psychiatric: cooperative - Neurologic Neurologic: CNII-XII intact Results - Labs CBC & Chem 7: 04/08/22 07:15 04/08/22 07:15 Labs: Laboratory Last Values WBC 5.4 K/mm3 (4.5-11.0) 04/08/22 07:15 RBC 4.24 M/mm3 (3.65-5.03) 04/08/22 07:15 Hgb 13.6 gm/dl (11.8-15.2) 04/08/22 07:15 Hct 37.3 % (35.5-45.6) 04/08/22 07:15 MCV 88 fl (84-94) 04/08/22 07:15 MCH 32 pg (28-32) 04/08/22 07:15 MCHC 36 % (32-34) H 04/08/22 07:15 RDW 13.3 % (13.2-15.2) 04/08/22 07:15 Plt Count 156 K/mm3 (140-440) 04/08/22 07:15 Lymph % (Auto) 6.3 % (13.4-35.0) L 04/08/22 07:15 [place] % (Auto) 9.8 % (0.0-7.3) H 04/08/22 07:15 Eos % (Auto) 0.0 % (0.0-4.3) 04/08/22 07:15 Baso % (Auto) 0.1 % (0.0-1.8) 04/08/22 07:15 Lymph # (Auto) 0.3 K/mm3 (1.2-5.4) L 04/08/22 07:15 [place] # (Auto) 0.5 K/mm3 (0.0-0.8) 04/08/22 07:15 Eos # (Auto) 0.0 K/mm3 (0.0-0.4) 04/08/22 07:15 Baso # (Auto) 0.0 K/mm3 (0.0-0.1) 04/08/22 07:15 Seg Neutrophils % 83.8 % (40.0-70.0) H 04/08/22 07:15 Seg Neutrophils # 4.6 K/mm3 (1.8-7.7) 04/08/22 07:15 Sodium 142 mmol/L (137-145) 04/08/22 07:15 Potassium 4.7 mmol/L (3.6-5.0) 04/08/22 07:15 Chloride 103.9 mmol/L (98-107) 04/08/22 07:15 Carbon Dioxide 28 mmol/L (22-30) 04/08/22 07:15 Anion Gap 15 mmol/L 04/08/22 07:15 BUN 26 mg/dL (9-20) H 04/08/22 07:15 Creatinine 0.8 mg/dL (0.8-1.3) 04/08/22 07:15 Estimated GFR > 60 ml/min 04/08/22 07:15 BUN/Creatinine Ratio 33 % 04/08/22 07:15 Glucose 133 mg/dL (75-100) H 04/08/22 07:15 Calcium 9.0 mg/dL (8.4-10.2) 04/08/22 07:15 Kaufman/IV: Voiding Method Incontinent Active Medications - Current Medications Current Medications: Generic Name Dose Route Start Last Admin Trade Name Freq PRN Reason Stop Dose Admin Acetaminophen 650 mg 04/06/22 15:59 Acetaminophen 325 Mg Tab PO Q4H PRN Pain MILD(1-3)/Fever >100.5/MCKENZIE Albuterol 2.5 mg 04/06/22 15:59 Albuterol 2.5 Mg/3 Ml Nebu IH Q4HRT PRN Shortness Of Breath Ascorbic Acid 500 mg 04/06/22 22:00 04/10/22 23:00 Ascorbic Acid 500 Mg Tab PO Not Given BID GALINA Aspirin 81 mg 04/07/22 10:00 04/10/22 10:15 Aspirin Ec 81 Mg Tab PO 81 mg QDAY GALINA Administration Cholecalciferol 1,000 unit 04/07/22 10:00 04/10/22 10:15 Cholecalciferol (Vit D3) 1000 Unit (25 Mcg) Tab PO 1,000 unit QDAY GALINA Administration Fluticasone Propionate 50 mcg 04/07/22 10:00 04/10/22 19:34 Fluticasone Propionate Nasal [place] 16 Gm NS Not Given QDAY GALINA Heparin Sodium (Porcine) 5,000 unit 04/06/22 22:00 04/10/22 23:39 Heparin 5,000 Unit/1 Ml Vial SUB-Q 5,000 unit Q12HR GALINA Administration Hydromorphone HCl 0.5 mg 04/06/22 15:59 04/06/22 21:49 Hydromorphone 0.5 Mg/0.5 Ml Inj IV 0.5 mg Q23H PRN Administration Pain , Severe (7-10) Sodium Chloride 1,000 mls @ 42 mls/hr 04/06/22 16:15 04/10/22 19:41 Nacl 0.9% 1000 Ml IV 42 mls/hr DIRECT GALINA Administration Ceftriaxone Sodium 2 gm in 100 mls @ 200 mls/hr 04/06/22 18:00 04/10/22 19:40 Rocephin/Ns 2 Gm/100 Ml IV 04/11/22 17:59 200 mls/hr Q24H GALINA Administration Protocol Lorazepam 0.5 mg 04/08/22 15:00 04/10/22 23:52 Lorazepam 2 Mg/Ml Vial IV 0.5 mg Q23H PRN Administration Agitation Melatonin 5 mg 04/07/22 11:21 Melatonin 5 Mg Tab PO QHS PRN Sleep Methylprednisolone Sodium Succinate 40 mg 04/06/22 18:00 04/11/22 01:17 Methylprednisolone Sod Succinate 40 Mg/1 Ml Inj IV 40 mg Q8H GALINA Administration Mirtazapine 7.5 mg 04/07/22 22:00 04/10/22 23:00 Mirtazapine 15 Mg Tab PO 7.5 mg QHS GALINA Administration Ondansetron HCl 4 mg 04/06/22 15:59 Ondansetron 4 Mg/2 Ml Inj IV Q8H PRN Nausea And Vomiting Oxycodone/Acetaminophen 1 tab 04/06/22 15:59 Oxycodone /Acetaminophen 5-325mg Tab PO Q16H PRN Pain, Moderate (4-6) Sodium Chloride 10 ml 04/06/22 22:00 04/10/22 23:41 Sodium Chloride 0.9% 10 Ml Flush Syringe IV 10 ml BID GALINA Administration Sodium Chloride 10 ml 04/06/22 15:59 Sodium Chloride 0.9% 10 Ml Flush Syringe IV PRN PRN LINE FLUSH Tiotropium [place] 1 puff 04/07/22 10:00 04/11/22 09:19 Tiotropium 18 Mcg Cap Inhalation IH Not Given QDAY GALINA Trazodone HCl 50 mg 04/07/22 22:00 04/10/22 23:00 Trazodone 50 Mg Tab PO 50 mg QHS GALINA Administration Zinc Sulfate 220 mg 04/06/22 22:00 04/10/22 23:00 Zinc Sulfate 220 Mg Cap PO Not Given BID GALINA Nutrition/Malnutrition Assess - Dietary Evaluation Nutrition/Malnutrition Findings: Nutrition Notes Start: 04/07/22 15:47 Freq: Status: Active Protocol: Document 04/07/22 15:48 FARIBA (Rec: 04/07/22 16:09 FARIBA [id number]) Nutrition Notes 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 Current Diet Regular Diet (since D 04/06). Labs/Tests 04/07: N/A. Pertinent Medications 04/07: Vit C, Vit D3, ZnSO4, others nutritionally unremarkable. 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 Weight Status Appropriate Subjective/Other Information RD consult for skin risk and risk of malnutrition assessments. Pt's PO intake of meals has been Good (75%), according to ADL notes. Pt is on Room Air, O2 saturation @ 93%, according to Physical Assessment History notes. Pt transferred from Geriatric/ Psychiatric Unit due to COVID- 19 infection, according to Progress notes. Psychiatric treatment deferred until clinically cleared, according to Progress notes. Pt shows no signs of concern for skin risk at the time, according to Physical Assessment History notes. Pt shows no signs of concern for risk of malnutrition at the time, according to Physical Assessment History notes. Percent of energy/protein needs met: Prescribed Regular Diet provides for energy/protein needs (2,289 Kcal/89 g) during LOS. Burn Absent Trauma Absent GI Symptoms None Food Allergy Yes Skin Integrity/Comment Assessment WNL. Current % PO Good (75-100%) Minimum of two criteria No Fluid Accumulation N/A Reduced Sheeting Puller Strength N/A (non-severe) Protein-Calorie Malnutrition N\A #1 Nutrition Diagnosis No nutrition diagnosis at this time Is patient on ventilator? No Is Patient Ambulatory and/or Out of Bed Yes REE-([place]-ambulatory/OOB) [ 1416.025 NUTR.MSJOOB] Kcal/Kg value to use for calculation 27 Approximate Energy Requirements Using 1269 kcal/Kg Calculation Used for Recommendations Kcal/kg Additional Notes Protein: 1-1.2 g/Kg IBW; 54-65 g/day. Fluids: 1 ml/Kcal, or as per MD. Nutrition Intervention Change Diet Order: Continue Regular Diet as tolerated. Follow-Up By: 04/14/22 Additional Comments Continue monitoring food tolerance, %PO intake of meals , and BM.
--- NOTE | 2022-04-11 11:00 | Progress Note ---
Assessment and Plan - Patient Problems (1) Coronavirus infection Current Visit: No Status: Acute Plan to address problem: Coronavirus protocol: IV antibiotic therapy, atorvastatin therapy as clinically indicated, vitamin C therapy, vitamin D therapy, zinc therapy, supplemental oxygen, pulse oximetry, prophylactic anticoagulation. (2) Vascular dementia with behavioral disturbance Current Visit: No Status: Acute Plan to address problem: Verbal prompting, verbal redirection, benzodiazepine therapy as clinically indicated. (3) Cerebral atherosclerosis Current Visit: No Status: Acute Plan to address problem: Risk factor reduction, antiplatelet therapy, supportive care. (4) Debility Current Visit: No Status: Acute Plan to address problem: Bed alarm, fall precautions, supportive care. (5) Malnutrition Current Visit: No Status: Acute Qualifiers: Protein-calorie malnutrition severity: moderate Plan to address problem: Increase protein intake, dietary supplementation when awake and alert only. Aspiration precautions. (6) Nicotine dependence Current Visit: No Status: Acute Qualifiers: Nicotine product type: cigarettes Substance use status: in withdrawal Qualified Code(s): F17.213 - Nicotine dependence, cigarettes, with withdrawal Plan to address problem: Smoke cessation counseled, supportive care, behavior change counseled, pulse 50 minutes. (7) Volume depletion Current Visit: No Status: Acute Plan to address problem: BMP, IV fluid resuscitation therapy, monitor fluid balance, repeat BMP in a.m. to monitor serum creatinine as well as GFR (8) Metabolic encephalopathy Current Visit: No Status: Acute Plan to address problem: Supportive care, IV fluid resuscitation therapy, neuro check, (9) DVT prophylaxis Current Visit: No Status: Acute Plan to address problem: SCD to bilateral extremities while in bed, prophylactic anticoagulation (10) Advance care planning Current Visit: No Status: Acute Plan to address problem: Disease education done, care plan discussed, diagnoses discussed, prognosis discussed, patient is full code at this time. Discussed patient care with Quynh Britt, . The plan is to make patient DNR and plan for discharge to long term facility with hospice care. Awaiting arrival of Ms. Britt to the hospital tomorrow for family conference. +30 minutes. (11) Preventative health care Current Visit: No Status: Acute Plan to address problem: Counseled regarding patient diagnosis and patient prognosis. Home safety precautions. Patient to follow-up with primary care physician as outpatient for all age and risk factor appropriate screening test. +30 minutes. History Interval history: 76 YO Male HD #5 with Vascular Dementia with Behavioral disturbance, Cerebral Atherosclerosis, DM, BPH, HTN, Malnutrition, Coronavirus Infection. Patient remains confused, lethargic with diminished cognition. Patient remains at baseline level of cognition and function. Hospice team consulted. Case management consulted. Discharge planning to long term facility with hospice care. Hospitalist Physical - Constitutional Vitals: Temp Pulse Resp BP Pulse Ox 97.2 F L 94 H 15 148/96 96 04/11/22 05:28 04/11/22 05:28 04/11/22 08:00 04/11/22 05:28 04/11/22 08:00 General appearance: Present: mild distress, cachectic - EENT Eyes: Present: PERRL ENT: hearing intact - Neck Neck: Present: supple - Respiratory Respiratory effort: normal Respiratory: bilateral: diminished - Cardiovascular Rhythm: regular Heart Sounds: Present: S1 & S2 - Extremities Extremities: no ischemia Peripheral Pulses: within normal limits - Abdominal General gastrointestinal: soft, non-tender, non-distended - Integumentary Integumentary: Present: clear, dry - Psychiatric Psychiatric: cooperative - Neurologic Neurologic: CNII-XII intact Results - Labs CBC & Chem 7: 04/08/22 07:15 04/08/22 07:15 Labs: Laboratory Last Values WBC 5.4 K/mm3 (4.5-11.0) 04/08/22 07:15 RBC 4.24 M/mm3 (3.65-5.03) 04/08/22 07:15 Hgb 13.6 gm/dl (11.8-15.2) 04/08/22 07:15 Hct 37.3 % (35.5-45.6) 04/08/22 07:15 MCV 88 fl (84-94) 04/08/22 07:15 MCH 32 pg (28-32) 04/08/22 07:15 MCHC 36 % (32-34) H 04/08/22 07:15 RDW 13.3 % (13.2-15.2) 04/08/22 07:15 Plt Count 156 K/mm3 (140-440) 04/08/22 07:15 Lymph % (Auto) 6.3 % (13.4-35.0) L 04/08/22 07:15 [place] % (Auto) 9.8 % (0.0-7.3) H 04/08/22 07:15 Eos % (Auto) 0.0 % (0.0-4.3) 04/08/22 07:15 Baso % (Auto) 0.1 % (0.0-1.8) 04/08/22 07:15 Lymph # (Auto) 0.3 K/mm3 (1.2-5.4) L 04/08/22 07:15 [place] # (Auto) 0.5 K/mm3 (0.0-0.8) 04/08/22 07:15 Eos # (Auto) 0.0 K/mm3 (0.0-0.4) 04/08/22 07:15 Baso # (Auto) 0.0 K/mm3 (0.0-0.1) 04/08/22 07:15 Seg Neutrophils % 83.8 % (40.0-70.0) H 04/08/22 07:15 Seg Neutrophils # 4.6 K/mm3 (1.8-7.7) 04/08/22 07:15 Sodium 142 mmol/L (137-145) 04/08/22 07:15 Potassium 4.7 mmol/L (3.6-5.0) 04/08/22 07:15 Chloride 103.9 mmol/L (98-107) 04/08/22 07:15 Carbon Dioxide 28 mmol/L (22-30) 04/08/22 07:15 Anion Gap 15 mmol/L 04/08/22 07:15 BUN 26 mg/dL (9-20) H 04/08/22 07:15 Creatinine 0.8 mg/dL (0.8-1.3) 04/08/22 07:15 Estimated GFR > 60 ml/min 04/08/22 07:15 BUN/Creatinine Ratio 33 % 04/08/22 07:15 Glucose 133 mg/dL (75-100) H 04/08/22 07:15 Calcium 9.0 mg/dL (8.4-10.2) 04/08/22 07:15 Kaufman/IV: Voiding Method Incontinent Active Medications - Current Medications Current Medications: Generic Name Dose Route Start Last Admin Trade Name Freq PRN Reason Stop Dose Admin Acetaminophen 650 mg 04/06/22 15:59 Acetaminophen 325 Mg Tab PO Q4H PRN Pain MILD(1-3)/Fever >100.5/MCKENZIE Albuterol 2.5 mg 04/06/22 15:59 Albuterol 2.5 Mg/3 Ml Nebu IH Q4HRT PRN Shortness Of Breath Ascorbic Acid 500 mg 04/06/22 22:00 04/10/22 23:00 Ascorbic Acid 500 Mg Tab PO Not Given BID GALINA Aspirin 81 mg 04/07/22 10:00 04/10/22 10:15 Aspirin Ec 81 Mg Tab PO 81 mg QDAY GALINA Administration Cholecalciferol 1,000 unit 04/07/22 10:00 04/10/22 10:15 Cholecalciferol (Vit D3) 1000 Unit (25 Mcg) Tab PO 1,000 unit QDAY GALINA Administration Fluticasone Propionate 50 mcg 04/07/22 10:00 04/10/22 19:34 Fluticasone Propionate Nasal [place] 16 Gm NS Not Given QDAY GALINA Heparin Sodium (Porcine) 5,000 unit 04/06/22 22:00 04/10/22 23:39 Heparin 5,000 Unit/1 Ml Vial SUB-Q 5,000 unit Q12HR GALINA Administration Hydromorphone HCl 0.5 mg 04/06/22 15:59 04/06/22 21:49 Hydromorphone 0.5 Mg/0.5 Ml Inj IV 0.5 mg Q23H PRN Administration Pain , Severe (7-10) Sodium Chloride 1,000 mls @ 42 mls/hr 04/06/22 16:15 04/10/22 19:41 Nacl 0.9% 1000 Ml IV 42 mls/hr DIRECT GALINA Administration Ceftriaxone Sodium 2 gm in 100 mls @ 200 mls/hr 04/06/22 18:00 04/10/22 19:40 Rocephin/Ns 2 Gm/100 Ml IV 04/11/22 17:59 200 mls/hr Q24H GALINA Administration Protocol Lorazepam 0.5 mg 04/08/22 15:00 04/10/22 23:52 Lorazepam 2 Mg/Ml Vial IV 0.5 mg Q23H PRN Administration Agitation Melatonin 5 mg 04/07/22 11:21 Melatonin 5 Mg Tab PO QHS PRN Sleep Methylprednisolone Sodium Succinate 40 mg 04/06/22 18:00 04/11/22 01:17 Methylprednisolone Sod Succinate 40 Mg/1 Ml Inj IV 40 mg Q8H GALINA Administration Mirtazapine 7.5 mg 04/07/22 22:00 04/10/22 23:00 Mirtazapine 15 Mg Tab PO 7.5 mg QHS GALINA Administration Ondansetron HCl 4 mg 04/06/22 15:59 Ondansetron 4 Mg/2 Ml Inj IV Q8H PRN Nausea And Vomiting Oxycodone/Acetaminophen 1 tab 04/06/22 15:59 Oxycodone /Acetaminophen 5-325mg Tab PO Q16H PRN Pain, Moderate (4-6) Sodium Chloride 10 ml 04/06/22 22:00 04/10/22 23:41 Sodium Chloride 0.9% 10 Ml Flush Syringe IV 10 ml BID GALINA Administration Sodium Chloride 10 ml 04/06/22 15:59 Sodium Chloride 0.9% 10 Ml Flush Syringe IV PRN PRN LINE FLUSH Tiotropium [place] 1 puff 04/07/22 10:00 04/11/22 09:19 Tiotropium 18 Mcg Cap Inhalation IH Not Given QDAY GALINA Trazodone HCl 50 mg 04/07/22 22:00 04/10/22 23:00 Trazodone 50 Mg Tab PO 50 mg QHS GALINA Administration Zinc Sulfate 220 mg 04/06/22 22:00 04/10/22 23:00 Zinc Sulfate 220 Mg Cap PO Not Given BID GALINA Nutrition/Malnutrition Assess - Dietary Evaluation Nutrition/Malnutrition Findings: Nutrition Notes Start: 04/07/22 15:47 Freq: Status: Active Protocol: Document 04/07/22 15:48 FARIBA (Rec: 04/07/22 16:09 FARIBA [id number]) Nutrition Notes 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 Current Diet Regular Diet (since D 04/06). Labs/Tests 04/07: N/A. Pertinent Medications 04/07: Vit C, Vit D3, ZnSO4, others nutritionally unremarkable. 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 Weight Status Appropriate Subjective/Other Information RD consult for skin risk and risk of malnutrition assessments. Pt's PO intake of meals has been Good (75%), according to ADL notes. Pt is on Room Air, O2 saturation @ 93%, according to Physical Assessment History notes. Pt transferred from Geriatric/ Psychiatric Unit due to COVID- 19 infection, according to Progress notes. Psychiatric treatment deferred until clinically cleared, according to Progress notes. Pt shows no signs of concern for skin risk at the time, according to Physical Assessment History notes. Pt shows no signs of concern for risk of malnutrition at the time, according to Physical Assessment History notes. Percent of energy/protein needs met: Prescribed Regular Diet provides for energy/protein needs (2,289 Kcal/89 g) during LOS. Burn Absent Trauma Absent GI Symptoms None Food Allergy Yes Skin Integrity/Comment Assessment WNL. Current % PO Good (75-100%) Minimum of two criteria No Fluid Accumulation N/A Reduced Prizer Hand Strength N/A (non-severe) Protein-Calorie Malnutrition N\A #1 Nutrition Diagnosis No nutrition diagnosis at this time Is patient on ventilator? No Is Patient Ambulatory and/or Out of Bed Yes [facility] [ 1416.025 NUTR.MSJOOB] Kcal/Kg value to use for calculation 27 Approximate Energy Requirements Using 1269 kcal/Kg Calculation Used for Recommendations Kcal/kg Additional Notes Protein: 1-1.2 g/Kg IBW; 54-65 g/day. Fluids: 1 ml/Kcal, or as per MD. Nutrition Intervention Change Diet Order: Continue Regular Diet as tolerated. Follow-Up By: 04/14/22 Additional Comments Continue monitoring food tolerance, %PO intake of meals , and BM.
[2022-04-11] MEDS: CHOLECALCIFEROL (VIT D3) 1000 UNIT (25 mcg) TAB PO SCH (11:16)
[2022-04-11] MEDS: ASCORBIC ACID 500 MG TAB PO SCH ×2 (11:16→21:21)
[2022-04-11] MEDS: AZITHROMYCIN 250 MG TAB PO SCH (11:16)
[2022-04-11] MEDS: ASPIRIN EC 81 MG TAB PO SCH (11:16)
[2022-04-11] MEDS: HEPARIN 5,000 UNIT/1 ML VIAL SUB-Q SCH ×2 (11:17→21:22)
[2022-04-11] MEDS: ZINC SULFATE 220 MG CAP PO SCH ×2 (11:17→21:21)
[2022-04-11] MEDS: FLUTICASONE PROPIONATE NASAL SPRAY 16 GM NS SCH (11:26)
--- NOTE | 2022-04-11 14:05 | Progress Note ---
Subjective - Reason for Consult Consult date: 04/11/22 Reason for consult: mental health evaluation - Chief Complaint Chief complaint: HPI: 76 YO Male with Vascular Dementia with Behavioral disturbance, Cerebral Atherosclerosis, DM, BPH, HTN, Malnutrition, diagnosed with coronavirus Infection on 03/31/22 admitted directly to medical floor from [facility]. Patient is confused and lethargic with diminished cognition at the time my evaluation is unable to provide history. Patient history provided by [facility] psych unit staff, as well as the patient next of kin who was made available by telephone for interview. Patient staff reports that patient has experienced increased confusion and agitation over the past 36 hours with diminished oral intake. Patient is currently bedbound, nonambulatory and requires 5/6 assistance with activities of daily living. Patient has a palliative performance of 30%. Patient seen and evaluated in his room and found to have symptoms consistent with symptomatic coronavirus infection. Patient admitted to medical floor and initiated on coronavirus protocol. No reports of fever, chills, chest pain, palpitation, skin rash, recent ill contacts. No prior admission for review. All medication listed at time of admission has been reconciled. Advanced care planning conducted. Patient is confused, lethargic with diminished cognition at the time my evaluation but has a positive gag reflex and is able to protect his airway without difficulty. This is a patient initially admitted to [facility] for dementia with behavioral disturbance. The patient was then transferred to the medical floor for poor appetite, weakness, and increasing confusion. The patient tested positive for COVID while on the [facility]-psych floor. During my evaluation of the patient today. He is lying in bed, partially disrobed. He is in restraints. He is confused, but does verbalize "feeling better today" when asked how was he doing. I asked the patient did he know where he was, he replies "wish I wasn't here." He then starts pulling against the restraints. He says "they got me now." I am unable to engage this patient in the evaluation due to his cognition. Will start Remeron to stimulate appetite and induce sleep. Appreciate and agree with lorazepam started for agitation. Will continue to follow this patient during his stay on the medical floor. 04/08: The patient was seen today. He is resting quietly in bed. 04/11: The patient was seen today. He is alert and restless. He continues to present with flat affect and confusion. He is trying to get out of the restraint. The patient is unable to engage in meaningful conversation; his eyes remains closed an he states " I can't feel nothing," and started spitting. REVIEW OF SYSTEMS Unable to assess MENTAL STATUS EXAMINATION Unable to assess Diagnoses: Dementia with behavioral disturbances Treatment Plan: Increased Remeron 15mg po qhs to stimulate appetite and promote rest Appreciate and agree with Lorazepam for agitation Medical: Per primary Sitter: Defer to primary Disposition: Do not recommend inpatient psych treatment at this time. This may change once the patient is medically clear. Will follow for psych progress and med management Thank you Case staffed with Dr. Hebert Mental Status Exam - Vital signs Last Vital Signs Temp 97.2 F L 04/11/22 05:28 Pulse 94 H 04/11/22 05:28 Resp 15 04/11/22 08:00 BP 148/96 04/11/22 05:28 Pulse Ox 96 04/11/22 08:00
[2022-04-11] MEDS ORDERED: LORazepam 2 MG/ML VIAL IV ONE (18:05)
[2022-04-11] MEDS: MIRTAZAPINE 15 MG TAB PO SCH (21:21)
[2022-04-11] MEDS: SODIUM CHLORIDE 0.9% 1000 ML 1,000 ML IV SCH (23:27)
[2022-04-12] MEDS: methylPREDNISolone Sod Succinate 40 MG/1 ML INJ IV SCH ×3 (02:53→17:00)
--- NOTE | 2022-04-12 07:59 | Progress Note ---
Assessment and Plan Assessment and plan: -- COVID-19 positive 03/31/2022 coronavirus infection Coronavirus protocol: IV antibiotic therapy, atorvastatin therapy as clinically indicated, vitamin C therapy, vitamin D therapy, zinc therapy, supplemental oxygen, pulse oximetry, prophylactic anticoagulation. Patient saturating well on room air --Vascular dementia with behavioral disturbance Verbal prompting, verbal redirection, benzodiazepine therapy as clinically indicated. --Cerebral atherosclerosis Risk factor reduction, antiplatelet therapy, supportive care. --General debility Bed alarm, fall precautions, supportive care. Physical therapy occupational therapy -- Mild to moderate malnutrition Increase protein intake, dietary supplementation when awake and alert only. Aspiration precautions. --Nicotine dependence Smoking cessation counseled, supportive care, behavior change counseled, pulse 5 0 minutes. --Volume depletion/dehydration IV fluids and supportive care, increase oral fluids --Metabolic encephalopathy Multifactorial , underlying dementia , malnutrition , advanced age COVID-19 infection , psych problems Treat underlying cause and supportive care --DVT prophylaxis SCD to bilateral extremities while in bed, prophylactic anticoagulation --Advance care planning Disease education done, care plan discussed, diagnoses discussed, prognosis discussed, patient is full code at this time. Discussed patient care with Quynh Dowdada, . The plan is to make patient DNR and plan for discharge to alf facility with hospice care. Awaiting arrival of Ms. Britt to the hospital tomorrow for family conference. +30 minutes. --Preventive health care Counseled regarding patient diagnosis and patient prognosis. Home safety precautions. Patient to follow-up with primary care physician as outpatient for all age and risk factor appropriate screening test. +30 minutes. Please closely monitor the patient and adjust the management as needed Plan of care reviewed with the patient's nurse DC planning per case management History Interval history: I have seen and examined the patient at the bedside this morning Isolation precautions PT eval and strictly followed Patient is sleeping easily awakens Confused noncommunicative Chronically ill looking cachectic and emaciated In mild distress vital signs noted Patient was restrained for safety for agitation Hospitalist Physical - Constitutional Vitals: Temp Pulse Resp BP Pulse Ox 98.6 F 74 18 142/88 96 04/12/22 05:25 04/12/22 05:25 04/12/22 05:25 04/12/22 05:25 04/12/22 05:25 General appearance: Present: mild distress, cachectic, other (Agitated ,restrained for safety) - EENT Eyes: Present: PERRL, EOM intact - Neck Neck: Present: supple, normal ROM - Respiratory Respiratory effort: normal Respiratory: bilateral: diminished, negative: rales, rhonchi, wheezing - Cardiovascular Rhythm: regular Heart Sounds: Present: S1 & S2 - Extremities Extremities: no ischemia, No edema - Abdominal General gastrointestinal: soft, non-tender, non-distended, normal bowel sounds - Integumentary Integumentary: Present: clear, warm - Psychiatric Psychiatric: appropriate mood/affect, agitated, other (Confused) - Neurologic Neurologic: CNII-XII intact, moves all extremities HEART Score - HEART Score Troponin: WBC 5.4 K/mm3 (4.5-11.0) 04/08/22 07:15 RBC 4.24 M/mm3 (3.65-5.03) 04/08/22 07:15 Hgb 13.6 gm/dl (11.8-15.2) 04/08/22 07:15 Hct 37.3 % (35.5-45.6) 04/08/22 07:15 MCV 88 fl (84-94) 04/08/22 07:15 MCH 32 pg (28-32) 04/08/22 07:15 MCHC 36 % (32-34) H 04/08/22 07:15 RDW 13.3 % (13.2-15.2) 04/08/22 07:15 Plt Count 156 K/mm3 (140-440) 04/08/22 07:15 Lymph % (Auto) 6.3 % (13.4-35.0) L 04/08/22 07:15 [place] % (Auto) 9.8 % (0.0-7.3) H 04/08/22 07:15 Eos % (Auto) 0.0 % (0.0-4.3) 04/08/22 07:15 Baso % (Auto) 0.1 % (0.0-1.8) 04/08/22 07:15 Lymph # (Auto) 0.3 K/mm3 (1.2-5.4) L 04/08/22 07:15 [place] # (Auto) 0.5 K/mm3 (0.0-0.8) 04/08/22 07:15 Eos # (Auto) 0.0 K/mm3 (0.0-0.4) 04/08/22 07:15 Baso # (Auto) 0.0 K/mm3 (0.0-0.1) 04/08/22 07:15 Seg Neutrophils % 83.8 % (40.0-70.0) H 04/08/22 07:15 Seg Neutrophils # 4.6 K/mm3 (1.8-7.7) 04/08/22 07:15 Sodium 142 mmol/L (137-145) 04/08/22 07:15 Potassium 4.7 mmol/L (3.6-5.0) 04/08/22 07:15 Chloride 103.9 mmol/L (98-107) 04/08/22 07:15 Carbon Dioxide 28 mmol/L (22-30) 04/08/22 07:15 Anion Gap 15 mmol/L 04/08/22 07:15 BUN 26 mg/dL (9-20) H 04/08/22 07:15 Creatinine 0.8 mg/dL (0.8-1.3) 04/08/22 07:15 Estimated GFR > 60 ml/min 04/08/22 07:15 BUN/Creatinine Ratio 33 % 04/08/22 07:15 Glucose 133 mg/dL (75-100) H 04/08/22 07:15 Calcium 9.0 mg/dL (8.4-10.2) 04/08/22 07:15 Results - Labs CBC & Chem 7: 04/08/22 07:15 04/12/22 10:45 Labs: Laboratory Last Values WBC 5.4 K/mm3 (4.5-11.0) 04/08/22 07:15 RBC 4.24 M/mm3 (3.65-5.03) 04/08/22 07:15 Hgb 13.6 gm/dl (11.8-15.2) 04/08/22 07:15 Hct 37.3 % (35.5-45.6) 04/08/22 07:15 MCV 88 fl (84-94) 04/08/22 07:15 MCH 32 pg (28-32) 04/08/22 07:15 MCHC 36 % (32-34) H 04/08/22 07:15 RDW 13.3 % (13.2-15.2) 04/08/22 07:15 Plt Count 156 K/mm3 (140-440) 04/08/22 07:15 Lymph % (Auto) 6.3 % (13.4-35.0) L 04/08/22 07:15 [place] % (Auto) 9.8 % (0.0-7.3) H 04/08/22 07:15 Eos % (Auto) 0.0 % (0.0-4.3) 04/08/22 07:15 Baso % (Auto) 0.1 % (0.0-1.8) 04/08/22 07:15 Lymph # (Auto) 0.3 K/mm3 (1.2-5.4) L 04/08/22 07:15 [place] # (Auto) 0.5 K/mm3 (0.0-0.8) 04/08/22 07:15 Eos # (Auto) 0.0 K/mm3 (0.0-0.4) 04/08/22 07:15 Baso # (Auto) 0.0 K/mm3 (0.0-0.1) 04/08/22 07:15 Seg Neutrophils % 83.8 % (40.0-70.0) H 04/08/22 07:15 Seg Neutrophils # 4.6 K/mm3 (1.8-7.7) 04/08/22 07:15 Sodium 142 mmol/L (137-145) 04/08/22 07:15 Potassium 4.7 mmol/L (3.6-5.0) 04/08/22 07:15 Chloride 103.9 mmol/L (98-107) 04/08/22 07:15 Carbon Dioxide 28 mmol/L (22-30) 04/08/22 07:15 Anion Gap 15 mmol/L 04/08/22 07:15 BUN 26 mg/dL (9-20) H 04/08/22 07:15 Creatinine 0.8 mg/dL (0.8-1.3) 04/08/22 07:15 Estimated GFR > 60 ml/min 04/08/22 07:15 BUN/Creatinine Ratio 33 % 04/08/22 07:15 Glucose 133 mg/dL (75-100) H 04/08/22 07:15 Calcium 9.0 mg/dL (8.4-10.2) 04/08/22 07:15 Kaufman/IV: Voiding Method Incontinent Active Medications - Current Medications Current Medications: Generic Name Dose Route Start Last Admin Trade Name Freq PRN Reason Stop Dose Admin Acetaminophen 650 mg 04/06/22 15:59 Acetaminophen 325 Mg Tab PO Q4H PRN Pain MILD(1-3)/Fever >100.5/MCKENZIE Albuterol 2.5 mg 04/06/22 15:59 Albuterol 2.5 Mg/3 Ml Nebu IH Q4HRT PRN Shortness Of Breath Ascorbic Acid 500 mg 04/06/22 22:00 04/11/22 21:21 Ascorbic Acid 500 Mg Tab PO 500 mg BID GALINA Administration Aspirin 81 mg 04/07/22 10:00 04/11/22 11:16 Aspirin Ec 81 Mg Tab PO 81 mg QDAY GALINA Administration Cholecalciferol 1,000 unit 04/07/22 10:00 04/11/22 11:16 Cholecalciferol (Vit D3) 1000 Unit (25 Mcg) Tab PO 1,000 unit QDAY GALINA Administration Fluticasone Propionate 50 mcg 04/07/22 10:00 04/11/22 11:26 Fluticasone Propionate Nasal [place] 16 Gm NS 50 mcg QDAY GALINA Administration Heparin Sodium (Porcine) 5,000 unit 04/06/22 22:00 04/11/22 21:22 Heparin 5,000 Unit/1 Ml Vial SUB-Q 5,000 unit Q12HR GALINA Administration Hydromorphone HCl 0.5 mg 04/06/22 15:59 04/06/22 21:49 Hydromorphone 0.5 Mg/0.5 Ml Inj IV 0.5 mg Q23H PRN Administration Pain , Severe (7-10) Sodium Chloride 1,000 mls @ 42 mls/hr 04/06/22 16:15 04/11/22 23:27 Nacl 0.9% 1000 Ml IV 42 mls/hr DIRECT GALINA Administration Lorazepam 0.5 mg 04/08/22 15:00 04/10/22 23:52 Lorazepam 2 Mg/Ml Vial IV 0.5 mg Q23H PRN Administration Agitation Melatonin 5 mg 04/07/22 11:21 04/11/22 23:27 Melatonin 5 Mg Tab PO 5 mg QHS PRN Administration Sleep Methylprednisolone Sodium Succinate 40 mg 04/06/22 18:00 04/12/22 02:53 Methylprednisolone Sod Succinate 40 Mg/1 Ml Inj IV 40 mg Q8H GALINA Administration Mirtazapine 15 mg 04/11/22 22:00 04/11/22 21:21 Mirtazapine 15 Mg Tab PO 15 mg QHS GALINA Administration Ondansetron HCl 4 mg 04/06/22 15:59 Ondansetron 4 Mg/2 Ml Inj IV Q8H PRN Nausea And Vomiting Oxycodone/Acetaminophen 1 tab 04/06/22 15:59 Oxycodone /Acetaminophen 5-325mg Tab PO Q16H PRN Pain, Moderate (4-6) Sodium Chloride 10 ml 04/06/22 22:00 04/11/22 21:22 Sodium Chloride 0.9% 10 Ml Flush Syringe IV 10 ml BID GALINA Administration Sodium Chloride 10 ml 04/06/22 15:59 Sodium Chloride 0.9% 10 Ml Flush Syringe IV PRN PRN LINE FLUSH Tiotropium [place] 1 puff 04/07/22 10:00 04/11/22 09:19 Tiotropium 18 Mcg Cap Inhalation IH Not Given QDAY GALINA Zinc Sulfate 220 mg 04/06/22 22:00 04/11/22 21:21 Zinc Sulfate 220 Mg Cap PO 220 mg BID GALINA Administration Nutrition/Malnutrition Assess - Dietary Evaluation Nutrition/Malnutrition Findings: Nutrition Notes Start: 04/07/22 15:47 Freq: Status: Active Protocol: Document 04/07/22 15:48 FARIBA (Rec: 04/07/22 16:09 FARIBA [email or web address]) Nutrition Notes Need for Assessment generated from: delivery rn,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 Current Diet Regular Diet (since D 04/06). Labs/Tests 04/07: N/A. Pertinent Medications 04/07: Vit C, Vit D3, ZnSO4, others nutritionally unremarkable. 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 Weight Status Appropriate Subjective/Other Information RD consult for skin risk and risk of malnutrition assessments. Pt's PO intake of meals has been Good (75%), according to ADL notes. Pt is on Room Air, O2 saturation @ 93%, according to Physical Assessment History notes. Pt transferred from Geriatric/ Psychiatric Unit due to COVID- 19 infection, according to Progress notes. Psychiatric treatment deferred until clinically cleared, according to Progress notes. Pt shows no signs of concern for skin risk at the time, according to Physical Assessment History notes. Pt shows no signs of concern for risk of malnutrition at the time, according to Physical Assessment History notes. Percent of energy/protein needs met: Prescribed Regular Diet provides for energy/protein needs (2,289 Kcal/89 g) during LOS. Burn Absent Trauma Absent GI Symptoms None Food Allergy Yes Skin Integrity/Comment Assessment WNL. Current % PO Good (75-100%) Minimum of two criteria No Fluid Accumulation N/A Reduced [employer] Recruiter Strength N/A (non-severe) Protein-Calorie Malnutrition N\A #1 Nutrition Diagnosis No nutrition diagnosis at this time Is patient on ventilator? No Is Patient Ambulatory and/or Out of Bed Yes REE-([place]-ambulatory/OOB) [ 1416.025 NUTR.MSJOOB] Kcal/Kg value to use for calculation 27 Approximate Energy Requirements Using 1269 kcal/Kg Calculation Used for Recommendations Kcal/kg Additional Notes Protein: 1-1.2 g/Kg IBW; 54-65 g/day. Fluids: 1 ml/Kcal, or as per MD. Nutrition Intervention Change Diet Order: Continue Regular Diet as tolerated. Follow-Up By: 04/14/22 Additional Comments Continue monitoring food tolerance, %PO intake of meals , and BM.
[2022-04-12] MEDS: FLUTICASONE PROPIONATE NASAL SPRAY 16 GM NS SCH (10:00)
[2022-04-12] MEDS: HEPARIN 5,000 UNIT/1 ML VIAL SUB-Q SCH ×2 (10:10→22:42)
[2022-04-12] MEDS: TIOTROPIUM 18 MCG CAP INHALATION IH SCH (10:14)
[2022-04-12 11:52] LABS: Alanine Aminotransferase 66 units/L (7-56); Albumin 3.8 g/dL (3.9-5); Blood Urea Nitrogen 35 mg/dL (9-20); Calcium 8.9 mg/dL (8.4-10.2); Hemolysis Index 7
[2022-04-12 11:56] LABS: BUN/Creatinine Ratio 50
[2022-04-12] MEDS: ASPIRIN EC 81 MG TAB PO SCH (12:26)
[2022-04-12] MEDS: CHOLECALCIFEROL (VIT D3) 1000 UNIT (25 mcg) TAB PO SCH (12:26)
[2022-04-12] MEDS: ASCORBIC ACID 500 MG TAB PO SCH ×2 (12:26→22:42)
[2022-04-12] MEDS: ZINC SULFATE 220 MG CAP PO SCH ×2 (12:27→22:42)
[2022-04-12] MEDS: LORazepam 2 MG/ML VIAL IV PRN (13:29)
[2022-04-12] MEDS: HYDROmorphone 0.5 MG/0.5 ML INJ IV PRN (19:53)
[2022-04-12] MEDS: MIRTAZAPINE 15 MG TAB PO SCH (22:42)
[2022-04-12] MEDS: SODIUM CHLORIDE 0.45% 1000 ML 1,000 ML IV SCH (23:16)
[2022-04-13] MEDS: methylPREDNISolone Sod Succinate 40 MG/1 ML INJ IV SCH ×3 (02:10→18:14)
[2022-04-13] MEDS: oxyCODONE /ACETAMINOPHEN 5-325MG TAB PO PRN ×2 (06:12→22:21)
[2022-04-13] MEDS: TIOTROPIUM 18 MCG CAP INHALATION IH SCH (09:15)
[2022-04-13] MEDS: HEPARIN 5,000 UNIT/1 ML VIAL SUB-Q SCH ×2 (12:25→22:20)
[2022-04-13] MEDS: SODIUM CHLORIDE 0.45% 1000 ML 1,000 ML IV SCH (12:25)
[2022-04-13] MEDS: ZINC SULFATE 220 MG CAP PO SCH ×2 (12:26→22:20)
[2022-04-13] MEDS: ASPIRIN EC 81 MG TAB PO SCH (12:26)
[2022-04-13] MEDS: CHOLECALCIFEROL (VIT D3) 1000 UNIT (25 mcg) TAB PO SCH (12:26)
[2022-04-13] MEDS: FLUTICASONE PROPIONATE NASAL SPRAY 16 GM NS SCH (12:26)
[2022-04-13] MEDS: ASCORBIC ACID 500 MG TAB PO SCH ×2 (12:26→22:20)
--- NOTE | 2022-04-13 16:23 | Progress Note ---
Assessment and Plan Assessment and plan: -- COVID-19 positive 03/31/2022 coronavirus infection Coronavirus protocol: IV antibiotic therapy, atorvastatin therapy as clinically indicated, vitamin C therapy, vitamin D therapy, zinc therapy, supplemental oxygen, pulse oximetry, prophylactic anticoagulation. Patient saturating well on room air --Vascular dementia with behavioral disturbance Verbal prompting, verbal redirection, benzodiazepine therapy as clinically indicated. --Cerebral atherosclerosis Risk factor reduction, antiplatelet therapy, supportive care. --General debility Bed alarm, fall precautions, supportive care. Physical therapy occupational therapy -- Mild to moderate malnutrition Increase protein intake, dietary supplementation when awake and alert only. Aspiration precautions. --Nicotine dependence Smoking cessation counseled, supportive care, behavior change counseled, pulse 5 0 minutes. --Volume depletion/dehydration IV fluids and supportive care, increase oral fluids --Metabolic encephalopathy Multifactorial , underlying dementia , malnutrition , advanced age COVID-19 infection , psych problems Treat underlying cause and supportive care --DVT prophylaxis SCD to bilateral extremities while in bed, prophylactic anticoagulation --Advance care planning Disease education done, care plan discussed, diagnoses discussed, prognosis discussed, patient is full code at this time. Discussed patient care with Quynh Dowdada, . The plan is to make patient DNR and plan for discharge to half-way facility with hospice care. Awaiting arrival of Ms. Britt to the hospital tomorrow for family conference. +30 minutes. --Preventive health care Counseled regarding patient diagnosis and patient prognosis. Home safety precautions. Patient to follow-up with primary care physician as outpatient for all age and risk factor appropriate screening test. +30 minutes. Please closely monitor the patient and adjust the management as needed Plan of care reviewed with the patient's nurse DC planning per case management History Interval history: I have seen and examined the patient at the bedside Patient's chart and medications reviewed No new events reported by the nursing Patient emaciated and demented cachectic malnourished Noncommunicative Restraint for safety Vital signs noted Hospitalist Physical - Constitutional Vitals: Temp Pulse Resp BP Pulse Ox 98.0 F 52 L 18 189/102 96 04/13/22 11:17 04/12/22 20:10 04/13/22 11:17 04/13/22 11:17 04/12/22 20:10 General appearance: Present: mild distress, cachectic, other (Agitated ,restrained for safety) - EENT Eyes: Present: PERRL, EOM intact - Neck Neck: Present: supple, normal ROM - Respiratory Respiratory effort: normal Respiratory: bilateral: diminished, negative: rales, rhonchi, wheezing - Cardiovascular Rhythm: regular Heart Sounds: Present: S1 & S2 - Extremities Extremities: no ischemia, No edema - Abdominal General gastrointestinal: soft, non-tender, non-distended, normal bowel sounds - Integumentary Integumentary: Present: clear, warm - Psychiatric Psychiatric: other (Noncommunicative) - Neurologic Neurologic: moves all extremities (Confused) Results - Labs CBC & Chem 7: 04/08/22 07:15 04/12/22 10:45 Labs: Laboratory Last Values WBC 5.4 K/mm3 (4.5-11.0) 04/08/22 07:15 RBC 4.24 M/mm3 (3.65-5.03) 04/08/22 07:15 Hgb 13.6 gm/dl (11.8-15.2) 04/08/22 07:15 Hct 37.3 % (35.5-45.6) 04/08/22 07:15 MCV 88 fl (84-94) 04/08/22 07:15 MCH 32 pg (28-32) 04/08/22 07:15 MCHC 36 % (32-34) H 04/08/22 07:15 RDW 13.3 % (13.2-15.2) 04/08/22 07:15 Plt Count 156 K/mm3 (140-440) 04/08/22 07:15 Lymph % (Auto) 6.3 % (13.4-35.0) L 04/08/22 07:15 [place] % (Auto) 9.8 % (0.0-7.3) H 04/08/22 07:15 Eos % (Auto) 0.0 % (0.0-4.3) 04/08/22 07:15 Baso % (Auto) 0.1 % (0.0-1.8) 04/08/22 07:15 Lymph # (Auto) 0.3 K/mm3 (1.2-5.4) L 04/08/22 07:15 [place] # (Auto) 0.5 K/mm3 (0.0-0.8) 04/08/22 07:15 Eos # (Auto) 0.0 K/mm3 (0.0-0.4) 04/08/22 07:15 Baso # (Auto) 0.0 K/mm3 (0.0-0.1) 04/08/22 07:15 Seg Neutrophils % 83.8 % (40.0-70.0) H 04/08/22 07:15 Seg Neutrophils # 4.6 K/mm3 (1.8-7.7) 04/08/22 07:15 Sodium 149 mmol/L (137-145) H 04/12/22 10:45 Potassium 4.3 mmol/L (3.6-5.0) 04/12/22 10:45 Chloride 112.3 mmol/L (98-107) H 04/12/22 10:45 Carbon Dioxide 24 mmol/L (22-30) 04/12/22 10:45 Anion Gap 17 mmol/L 04/12/22 10:45 BUN 35 mg/dL (9-20) H 04/12/22 10:45 Creatinine 0.7 mg/dL (0.8-1.3) L 04/12/22 10:45 Estimated GFR > 60 ml/min 04/12/22 10:45 BUN/Creatinine Ratio 50 % 04/12/22 10:45 Glucose 131 mg/dL (75-100) H 04/12/22 10:45 Calcium 8.9 mg/dL (8.4-10.2) 04/12/22 10:45 Magnesium 2.50 mg/dL (1.7-2.3) H 04/12/22 10:45 Total Bilirubin 0.60 mg/dL (0.1-1.2) 04/12/22 10:45 AST 43 units/L (5-40) H 04/12/22 10:45 ALT 66 units/L (7-56) H 04/12/22 10:45 Alkaline Phosphatase 88 units/L (35-129) 04/12/22 10:45 Total Protein 6.1 g/dL (6.3-8.2) L 04/12/22 10:45 Albumin 3.8 g/dL (3.9-5) L 04/12/22 10:45 Albumin/Globulin Ratio 1.7 % 04/12/22 10:45 Kaufman/IV: Voiding Method Incontinent Active Medications - Current Medications Current Medications: Generic Name Dose Route Start Last Admin Trade Name Freq PRN Reason Stop Dose Admin Acetaminophen 650 mg 04/06/22 15:59 Acetaminophen 325 Mg Tab PO Q4H PRN Pain MILD(1-3)/Fever >100.5/MCKENZIE Albuterol 2.5 mg 04/06/22 15:59 Albuterol 2.5 Mg/3 Ml Nebu IH Q4HRT PRN Shortness Of Breath Ascorbic Acid 500 mg 04/06/22 22:00 04/13/22 12:26 Ascorbic Acid 500 Mg Tab PO 04/15/22 21:59 500 mg BID GALINA Administration Aspirin 81 mg 04/07/22 10:00 04/13/22 12:26 Aspirin Ec 81 Mg Tab PO 81 mg QDAY GALINA Administration Cholecalciferol 1,000 unit 04/07/22 10:00 04/13/22 12:26 Cholecalciferol (Vit D3) 1000 Unit (25 Mcg) Tab PO 1,000 unit QDAY GALINA Administration Fluticasone Propionate 50 mcg 04/07/22 10:00 04/13/22 12:26 Fluticasone Propionate Nasal [place] 16 Gm NS 50 mcg QDAY GALINA Administration Heparin Sodium (Porcine) 5,000 unit 04/06/22 22:00 04/13/22 12:25 Heparin 5,000 Unit/1 Ml Vial SUB-Q 5,000 unit Q12HR GALINA Administration Hydromorphone HCl 0.5 mg 04/06/22 15:59 04/12/22 19:53 Hydromorphone 0.5 Mg/0.5 Ml Inj IV 0.5 mg Q23H PRN Administration Pain , Severe (7-10) Sodium Chloride 1,000 mls @ 50 mls/hr 04/12/22 15:00 04/13/22 12:25 Nacl 0.45% 1000 Ml IV 50 mls/hr DIRECT GALINA Administration Lorazepam 0.5 mg 04/08/22 15:00 04/12/22 13:29 Lorazepam 2 Mg/Ml Vial IV 0.5 mg Q23H PRN Administration Agitation Melatonin 5 mg 04/07/22 11:21 04/11/22 23:27 Melatonin 5 Mg Tab PO 5 mg QHS PRN Administration Sleep Methylprednisolone Sodium Succinate 40 mg 04/06/22 18:00 04/13/22 12:25 Methylprednisolone Sod Succinate 40 Mg/1 Ml Inj IV 04/15/22 17:59 40 mg Q8H GALINA Administration Mirtazapine 15 mg 04/11/22 22:00 04/12/22 22:42 Mirtazapine 15 Mg Tab PO 15 mg QHS GALINA Administration Ondansetron HCl 4 mg 04/06/22 15:59 Ondansetron 4 Mg/2 Ml Inj IV Q8H PRN Nausea And Vomiting Oxycodone/Acetaminophen 1 tab 04/06/22 15:59 04/13/22 06:12 Oxycodone /Acetaminophen 5-325mg Tab PO 1 tab Q16H PRN Administration Pain, Moderate (4-6) Sodium Chloride 10 ml 04/06/22 22:00 04/13/22 12:27 Sodium Chloride 0.9% 10 Ml Flush Syringe IV 10 ml BID GALINA Administration Sodium Chloride 10 ml 04/06/22 15:59 Sodium Chloride 0.9% 10 Ml Flush Syringe IV PRN PRN LINE FLUSH Tiotropium [place] 1 puff 04/07/22 10:00 04/13/22 09:15 Tiotropium 18 Mcg Cap Inhalation IH 1 puff QDAY GALINA Administration Zinc Sulfate 220 mg 04/06/22 22:00 04/13/22 12:26 Zinc Sulfate 220 Mg Cap PO 04/15/22 21:59 220 mg BID GALINA Administration Nutrition/Malnutrition Assess - Dietary Evaluation Nutrition/Malnutrition Findings: Nutrition Notes Start: 04/07/22 15:47 Freq: Status: Active Protocol: Document 04/07/22 15:48 FARIBA (Rec: 04/07/22 16:09 FARIBA [email or web address]) Nutrition Notes Need for Assessment generated from: shellfish sorter,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 Current Diet Regular Diet (since D 04/06). Labs/Tests 04/07: N/A. Pertinent Medications 04/07: Vit C, Vit D3, ZnSO4, others nutritionally unremarkable. 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 Weight Status Appropriate Subjective/Other Information RD consult for skin risk and risk of malnutrition assessments. Pt's PO intake of meals has been Good (75%), according to ADL notes. Pt is on Room Air, O2 saturation @ 93%, according to Physical Assessment History notes. Pt transferred from Geriatric/ Psychiatric Unit due to COVID- 19 infection, according to Progress notes. Psychiatric treatment deferred until clinically cleared, according to Progress notes. Pt shows no signs of concern for skin risk at the time, according to Physical Assessment History notes. Pt shows no signs of concern for risk of malnutrition at the time, according to Physical Assessment History notes. Percent of energy/protein needs met: Prescribed Regular Diet provides for energy/protein needs (2,289 Kcal/89 g) during LOS. Burn Absent Trauma Absent GI Symptoms None Food Allergy Yes Skin Integrity/Comment Assessment WNL. Current % PO Good (75-100%) Minimum of two criteria No Fluid Accumulation N/A Reduced Clinical Administrator Strength N/A (non-severe) Protein-Calorie Malnutrition N\A #1 Nutrition Diagnosis No nutrition diagnosis at this time Is patient on ventilator? No Is Patient Ambulatory and/or Out of Bed Yes REE-([place]-ambulatory/OOB) [ 1416.025 NUTR.MSJOOB] Kcal/Kg value to use for calculation 27 Approximate Energy Requirements Using 1269 kcal/Kg Calculation Used for Recommendations Kcal/kg Additional Notes Protein: 1-1.2 g/Kg IBW; 54-65 g/day. Fluids: 1 ml/Kcal, or as per MD. Nutrition Intervention Change Diet Order: Continue Regular Diet as tolerated. Follow-Up By: 04/14/22 Additional Comments Continue monitoring food tolerance, %PO intake of meals , and BM.
[2022-04-13] MEDS: MIRTAZAPINE 15 MG TAB PO SCH (22:20)
[2022-04-14] MEDS: methylPREDNISolone Sod Succinate 40 MG/1 ML INJ IV SCH ×3 (01:55→17:33)
[2022-04-14] MEDS: TIOTROPIUM 18 MCG CAP INHALATION IH SCH (09:04)
[2022-04-14] MEDS: FLUTICASONE PROPIONATE NASAL SPRAY 16 GM NS SCH (09:24)
[2022-04-14] MEDS: ASPIRIN EC 81 MG TAB PO SCH (09:25)
[2022-04-14] MEDS: ASCORBIC ACID 500 MG TAB PO SCH ×2 (09:25→22:10)
[2022-04-14] MEDS: CHOLECALCIFEROL (VIT D3) 1000 UNIT (25 mcg) TAB PO SCH (09:25)
[2022-04-14] MEDS: ZINC SULFATE 220 MG CAP PO SCH ×2 (09:25→22:10)
[2022-04-14] MEDS: HEPARIN 5,000 UNIT/1 ML VIAL SUB-Q SCH ×2 (09:31→22:10)
--- NOTE | 2022-04-14 10:38 | Progress Note ---
Subjective - Reason for Consult Consult date: 04/14/22 Reason for consult: mental health evaluation - Chief Complaint Chief complaint: HPI: 76 YO Male with Vascular Dementia with Behavioral disturbance, Cerebral Atherosclerosis, DM, BPH, HTN, Malnutrition, diagnosed with coronavirus Infection on 03/31/22 admitted directly to medical floor from [facility] Unit. Patient is confused and lethargic with diminished cognition at the time my evaluation is unable to provide history. Patient history provided by [facility] psych unit staff, as well as the patient next of kin who was made available by telephone for interview. Patient staff reports that patient has experienced increased confusion and agitation over the past 36 hours with diminished oral intake. Patient is currently bedbound, nonambulatory and requires 5/6 assistance with activities of daily living. Patient has a palliative performance of 30%. Patient seen and evaluated in his room and found to have symptoms consistent with symptomatic coronavirus infection. Patient admitted to medical floor and initiated on coronavirus protocol. No reports of fever, chills, chest pain, palpitation, skin rash, recent ill contacts. No prior admission for review. All medication listed at time of admission has been reconciled. Advanced care planning conducted. Patient is confused, lethargic with diminished cognition at the time my evaluation but has a positive gag reflex and is able to protect his airway without difficulty. This is a patient initially admitted to [facility] for dementia with behavioral disturbance. The patient was then transferred to the medical floor for poor appetite, weakness, and increasing confusion. The patient tested positive for COVID while on the [facility]psych floor. During my evaluation of the patient today. He is lying in bed, partially disrobed. He is in restraints. He is confused, but does verbalize "feeling better today" when asked how was he doing. I asked the patient did he know where he was, he replies "wish I wasn't here." He then starts pulling against the restraints. He says "they got me now." I am unable to engage this patient in the evaluation due to his cognition. Will start Remeron to stimulate appetite and induce sleep. Appreciate and agree with lorazepam started for agitation. Will continue to follow this patient during his stay on the medical floor. 04/08: The patient was seen today. He is resting quietly in bed. 04/11: The patient was seen today. He is alert and restless. He continues to present with flat affect and confusion. He is trying to get out of the restraints. The patient is unable to engage in meaningful conversation; his eyes remains closed an he states " I can't feel nothing," and started spitting. 04/14: The patient was seen today. He is on soft wrist restraints. The patient states he is "OK" he continues to be confused. REVIEW OF SYSTEMS Unable to assess MENTAL STATUS EXAMINATION Unable to assess Diagnoses: Dementia with behavioral disturbances Treatment Plan: Increased Remeron 15mg po qhs to stimulate appetite and promote rest Appreciate and agree with Lorazepam for agitation Medical: Per primary Sitter: Defer to primary Disposition: Do not recommend inpatient psych treatment at this time. This may change once the patient is medically clear. Will follow for psych progress and med management Thank you Case staffed with Dr. Hebert Mental Status Exam - Vital signs Last Vital Signs Temp 98.0 F 04/13/22 17:49 Pulse 68 04/14/22 09:13 Resp 19 04/14/22 09:13 BP 173/76 04/13/22 17:49 Pulse Ox 94 04/14/22 07:36
--- NOTE | 2022-04-14 20:00 | Progress Note ---
Assessment and Plan Assessment and plan: -- COVID-19 positive 03/31/2022 coronavirus infection Coronavirus protocol: IV antibiotic therapy, atorvastatin therapy as clinically indicated, vitamin C therapy, vitamin D therapy, zinc therapy, supplemental oxygen, pulse oximetry, prophylactic anticoagulation. Patient saturating well on room air --Vascular dementia with behavioral disturbance Verbal prompting, verbal redirection, benzodiazepine therapy as clinically indicated. --Cerebral atherosclerosis Risk factor reduction, antiplatelet therapy, supportive care. --General debility Bed alarm, fall precautions, supportive care. Physical therapy occupational therapy -- Mild to moderate malnutrition Increase protein intake, dietary supplementation when awake and alert only. Aspiration precautions. --Nicotine dependence Smoking cessation counseled, supportive care, behavior change counseled, pulse 5 0 minutes. --Volume depletion/dehydration IV fluids and supportive care, increase oral fluids --Metabolic encephalopathy Multifactorial , underlying dementia , malnutrition , advanced age COVID-19 infection , psych problems Treat underlying cause and supportive care --DVT prophylaxis SCD to bilateral extremities while in bed, prophylactic anticoagulation --Advance care planning Disease education done, care plan discussed, diagnoses discussed, prognosis discussed, patient is full code at this time. Discussed patient care with Quynh Laboymono, . The plan is to make patient DNR and [facility]. Awaiting arrival of Ms Haven Britt to the hospital tomorrow for family conference. +30 minutes. --Preventive health care Counseled regarding patient diagnosis and patient prognosis. Home safety precautions. Patient to follow-up with primary care physician as outpatient for all age and risk factor appropriate screening test. +30 minutes. Please closely monitor the patient and adjust the management as needed Plan of care reviewed with the patient's nurse DC planning per case management 04/13/2022; patient is lethargic sleepy, restraint for safety Continue current management, psych evaluation noted and appreciated 04/14/2022; patient is more alert today trying to pull , agitated On restraints, refusing to eat, consider Dobbhoff placement for tube feeding if needed History Interval history: I have seen and examined the patient at the bedside more agitated Patient is more agitated, in restraints As per nurse patient is refusing medications, food Confused and nonverbal Vitals noted Hospitalist Physical - Constitutional Vitals: Temp Pulse Resp BP Pulse Ox 98.0 F 68 19 173/76 94 06/15/22 17:49 04/14/22 09:13 04/14/22 09:13 04/13/22 17:49 04/14/22 07:36 General appearance: Present: mild distress, cachectic, other (Agitated ,restrained for safety) - EENT Eyes: Present: PERRL, EOM intact - Neck Neck: Present: supple, normal ROM - Respiratory Respiratory effort: normal Respiratory: bilateral: diminished, negative: rales, rhonchi, wheezing - Cardiovascular Rhythm: regular Heart Sounds: Present: S1 & S2 - Extremities Extremities: no ischemia, No edema - Abdominal General gastrointestinal: soft, non-tender, non-distended, normal bowel sounds - Integumentary Integumentary: Present: clear, warm - Psychiatric Psychiatric: agitated, other - Neurologic Neurologic: moves all extremities (Confused), other (Agitated and confused) Results - Labs CBC & Chem 7: 04/08/22 07:15 04/12/22 10:45 Labs: Laboratory Last Values WBC 5.4 K/mm3 (4.5-11.0) 04/08/22 07:15 RBC 4.24 M/mm3 (3.65-5.03) 04/08/22 07:15 Hgb 13.6 gm/dl (11.8-15.2) 04/08/22 07:15 Hct 37.3 % (35.5-45.6) 04/08/22 07:15 MCV 88 fl (84-94) 04/08/22 07:15 MCH 32 pg (28-32) 04/08/22 07:15 MCHC 36 % (32-34) H 04/08/22 07:15 RDW 13.3 % (13.2-15.2) 04/08/22 07:15 Plt Count 156 K/mm3 (140-440) 04/08/22 07:15 Lymph % (Auto) 6.3 % (13.4-35.0) L 04/08/22 07:15 [place] % (Auto) 9.8 % (0.0-7.3) H 04/08/22 07:15 Eos % (Auto) 0.0 % (0.0-4.3) 04/08/22 07:15 Baso % (Auto) 0.1 % (0.0-1.8) 04/08/22 07:15 Lymph # (Auto) 0.3 K/mm3 (1.2-5.4) L 04/08/22 07:15 [place] # (Auto) 0.5 K/mm3 (0.0-0.8) 04/08/22 07:15 Eos # (Auto) 0.0 K/mm3 (0.0-0.4) 04/08/22 07:15 Baso # (Auto) 0.0 K/mm3 (0.0-0.1) 04/08/22 07:15 Seg Neutrophils % 83.8 % (40.0-70.0) H 04/08/22 07:15 Seg Neutrophils # 4.6 K/mm3 (1.8-7.7) 04/08/22 07:15 Sodium 149 mmol/L (137-145) H 04/12/22 10:45 Potassium 4.3 mmol/L (3.6-5.0) 04/12/22 10:45 Chloride 112.3 mmol/L (98-107) H 04/12/22 10:45 Carbon Dioxide 24 mmol/L (22-30) 04/12/22 10:45 Anion Gap 17 mmol/L 04/12/22 10:45 BUN 35 mg/dL (9-20) H 04/12/22 10:45 Creatinine 0.7 mg/dL (0.8-1.3) L 04/12/22 10:45 Estimated GFR > 60 ml/min 04/12/22 10:45 BUN/Creatinine Ratio 50 % 04/12/22 10:45 Glucose 131 mg/dL (75-100) H 04/12/22 10:45 Calcium 8.9 mg/dL (8.4-10.2) 04/12/22 10:45 Magnesium 2.50 mg/dL (1.7-2.3) H 04/12/22 10:45 Total Bilirubin 0.60 mg/dL (0.1-1.2) 04/12/22 10:45 AST 43 units/L (5-40) H 04/12/22 10:45 ALT 66 units/L (7-56) H 04/12/22 10:45 Alkaline Phosphatase 88 units/L (35-129) 04/12/22 10:45 Total Protein 6.1 g/dL (6.3-8.2) L 04/12/22 10:45 Albumin 3.8 g/dL (3.9-5) L 04/12/22 10:45 Albumin/Globulin Ratio 1.7 % 04/12/22 10:45 SARS-CoV-2 (PCR) Positive (Negative) A 04/13/22 09:20 Kaufman/IV: Voiding Method Condom Catheter Active Medications - Current Medications Current Medications: Generic Name Dose Route Start Last Admin Trade Name Freq PRN Reason Stop Dose Admin Acetaminophen 650 mg 04/06/22 15:59 Acetaminophen 325 Mg Tab PO Q4H PRN Pain MILD(1-3)/Fever >100.5/MCKENZIE Albuterol 2.5 mg 04/06/22 15:59 Albuterol 2.5 Mg/3 Ml Nebu IH Q4HRT PRN Shortness Of Breath Ascorbic Acid 500 mg 04/06/22 22:00 04/14/22 09:25 Ascorbic Acid 500 Mg Tab PO 04/15/22 21:59 500 mg BID GALINA Administration Aspirin 81 mg 04/07/22 10:00 04/14/22 09:25 Aspirin Ec 81 Mg Tab PO 81 mg QDAY GALINA Administration Cholecalciferol 1,000 unit 04/07/22 10:00 04/14/22 09:25 Cholecalciferol (Vit D3) 1000 Unit (25 Mcg) Tab PO 1,000 unit QDAY GALINA Administration Fluticasone Propionate 50 mcg 04/07/22 10:00 04/14/22 09:24 Fluticasone Propionate Nasal [place] 16 Gm NS 50 mcg QDAY GALINA Administration Heparin Sodium (Porcine) 5,000 unit 04/06/22 22:00 04/14/22 09:31 Heparin 5,000 Unit/1 Ml Vial SUB-Q 5,000 unit Q12HR GALINA Administration Hydromorphone HCl 0.5 mg 04/06/22 15:59 04/12/22 19:53 Hydromorphone 0.5 Mg/0.5 Ml Inj IV 0.5 mg Q23H PRN Administration Pain , Severe (7-10) Sodium Chloride 1,000 mls @ 50 mls/hr 04/12/22 15:00 04/13/22 12:25 Nacl 0.45% 1000 Ml IV 50 mls/hr DIRECT GALINA Administration Lorazepam 0.5 mg 04/08/22 15:00 04/12/22 13:29 Lorazepam 2 Mg/Ml Vial IV 0.5 mg Q23H PRN Administration Agitation Melatonin 5 mg 04/07/22 11:21 04/11/22 23:27 Melatonin 5 Mg Tab PO 5 mg QHS PRN Administration Sleep Methylprednisolone Sodium Succinate 40 mg 04/06/22 18:00 04/14/22 17:33 Methylprednisolone Sod Succinate 40 Mg/1 Ml Inj IV 04/15/22 17:59 Not Given Q8H GALINA Mirtazapine 15 mg 04/11/22 22:00 04/13/22 22:20 Mirtazapine 15 Mg Tab PO 15 mg QHS GALINA Administration Ondansetron HCl 4 mg 04/06/22 15:59 Ondansetron 4 Mg/2 Ml Inj IV Q8H PRN Nausea And Vomiting Oxycodone/Acetaminophen 1 tab 04/06/22 15:59 04/13/22 22:21 Oxycodone /Acetaminophen 5-325mg Tab PO 1 tab Q16H PRN Administration Pain, Moderate (4-6) Sodium Chloride 10 ml 04/06/22 22:00 04/14/22 09:25 Sodium Chloride 0.9% 10 Ml Flush Syringe IV 10 ml BID GALINA Administration Sodium Chloride 10 ml 04/06/22 15:59 Sodium Chloride 0.9% 10 Ml Flush Syringe IV PRN PRN LINE FLUSH Tiotropium [place] 1 puff 04/07/22 10:00 04/14/22 09:04 Tiotropium 18 Mcg Cap Inhalation IH 1 puff QDAY GALINA Administration Zinc Sulfate 220 mg 04/06/22 22:00 04/14/22 09:25 Zinc Sulfate 220 Mg Cap PO 04/15/22 21:59 220 mg BID GALINA Administration Nutrition/Malnutrition Assess - Dietary Evaluation Nutrition/Malnutrition Findings: Nutrition Notes Start: 04/07/22 15:47 Freq: Status: Active Protocol: Document 04/14/22 12:28 FARIBA (Rec: 04/14/22 12:58 [email or web address] [id number]) Nutrition Notes Initial or Follow up Reassessment Current Diagnosis Diabetes,Hypertension, Malnutrition Other Pertinent Diagnosis COVID-19, Debility, Dehydration, Metabolic Encephalopathy, Dementia ... Current Diet Regular Diet (since 04/06), D Suppl (since D 04/14). Labs/Tests 04/14: Na 149, Cl 112.3, BUN 35, Crea 0.7, Glu 131, Mg 2.5. Pertinent Medications 04/14: Vit C, Vit D3, ZnSO4. Height 5 ft 2 in Weight 47.3 kg [place] Body Weight (kg) 53.63 BMI 19.1 Weight change and time frame 0.3 Kg body weight gain in 1 week reported. Weight Status Appropriate Subjective/Other Information RD consult for routine F/U on dietary advancement. Pt's PO intake of meals has been Negligible (0%), according to ADL notes. I will prescribe dietary supplements to compensate for poor or insufficient PO intake of meals. Pt is on Room Air, O2 saturation @ 94%, according to Physical Assessment History notes. Pt has missing teeth, according to Physical Assessment History notes. Pt has been very combative, refuses to eat and take oral medications, has to be restrained to bed, according to Progress notes. Percent of energy/protein needs met: Prescribed Regular Diet provides for energy/protein needs (2,289 Kcal/89 g) during LOS; additionally, Dietary Supplements will compensate for possible poor or insufficient PO intake of meals with 660 Kcal and 30 g of protein. Burn Absent Trauma Absent GI Symptoms None Food Allergy Yes Skin Integrity/Comment Assessment WNL. Current % PO Negligible Minimum of two criteria No Fluid Accumulation N/A Reduced Ju[employer] Strength N/A (non-severe) Protein-Calorie Malnutrition N\A #1 Nutrition Diagnosis Predicted suboptimal energy intake Etiology Dementia with behavioral disturbance. As Evidenced by Signs and Symptoms Pt's PO intake of meals has been Negligible (0%), according to ADL notes. Is patient on ventilator? No Is Patient Ambulatory and/or Out of Bed Yes REE-([facility]-ambulatory/OOB) [ 1419.925 [id number]] Kcal/Kg value to use for calculation 27 Approximate Energy Requirements Using 1277 kcal/Kg Calculation Used for Recommendations Kcal/kg Additional Notes Protein: 1-1.2 g/Kg IBW; 54-65 g/day. Fluids: 1 ml/Kcal, or as per MD. Nutrition Intervention Change Diet Order: Continue Regular Diet as tolerated. Add Supplement/Snack (indicate name/kcal Start 8 fl oz Glucerna; TID. /protein ) Provides kCal: 660 Provides Protein (gm) 30 Goal #1 Compensate, through dietary supplementation, for possible poor or insufficient PO intake of meals during LOS. Goal #2 Adjust the dietary intervention to better serve Pt's needs and clinical conditions during LOS. Follow-Up By: 04/21/22 Additional Comments Continue monitoring food tolerance, %PO intake of meals , and BM.
[2022-04-14] MEDS: MIRTAZAPINE 15 MG TAB PO SCH (22:10)
[2022-04-14] MEDS: SODIUM CHLORIDE 0.45% 1000 ML 1,000 ML IV SCH (22:11)
[2022-04-15] MEDS: LORazepam 2 MG/ML VIAL IV PRN (00:16)
[2022-04-15] MEDS: methylPREDNISolone Sod Succinate 40 MG/1 ML INJ IV SCH ×2 (01:51→09:04)
--- NOTE | 2022-04-15 08:22 | Progress Note ---
Assessment and Plan Assessment and plan: 76 YO Male HD #5 with Vascular Dementia with Behavioral disturbance, Cerebral Atherosclerosis, DM, BPH, HTN, Malnutrition, Coronavirus Infection. Patient remains confused, lethargic with diminished cognition. Patient remains at baseline level of cognition and function. Hospice team consulted. Case alexandre castro consulted. Discharge planning to retirement facility with hospice care. -- COVID-19 positive 03/31/2022 and 04/13/2022 coronavirus infection Coronavirus protocol: IV antibiotic therapy, atorvastatin therapy as clinically indicated, vitamin C therapy, vitamin D therapy, zinc therapy, supplemental oxygen, pulse oximetry, prophylactic anticoagulation. Patient saturating well on room air Inflammatory markers, ID consult --Vascular dementia with behavioral disturbance Verbal prompting, verbal redirection, benzodiazepine therapy as clinically indicated. --Cerebral atherosclerosis Risk factor reduction, antiplatelet therapy, supportive care. --General debility Bed alarm, fall precautions, supportive care. Physical therapy occupational therapy -- Mild to moderate malnutrition Increase protein intake, dietary supplementation when awake and alert only. A spiration precautions. --Nicotine dependence Smoking cessation counseled, supportive care, behavior change counseled, pulse 50 minutes. --Volume depletion/dehydration IV fluids and supportive care, increase oral fluids --Metabolic encephalopathy Multifactorial , underlying dementia , malnutrition , advanced age COVID-19 infection , psych problems Treat underlying cause and supportive care --DVT prophylaxis SCD to bilateral extremities while in bed, prophylactic anticoagulation --Advance care planning Disease education done, care plan discussed, diagnoses discussed, prognosis discussed, patient is full code at this time. Discussed patient care with Quynh Lorenza, . The plan is to make patient DNR and plan for discharge to retirement facility with hospice care. Awaiting arrival of Ms. Britt to the hospital tomorrow for family conference. +30 minutes. --Preventive health care Counseled regarding patient diagnosis and patient prognosis. Home safety precautions. Patient to follow-up with primary care physician as outpatient for all age and risk factor appropriate screening test. +30 minutes. Please closely monitor the patient and adjust the management as needed Plan of care reviewed with the patient's nurse DC planning per case management Brief history and daily hospital course 76 YO Male HD #5 with Vascular Dementia with Behavioral disturbance, Cerebral Atherosclerosis, DM, BPH, HTN, Malnutrition, Coronavirus Infection. Patient remains confused, lethargic with diminished cognition. Patient remains at baseline level of cognition and function. Hospice team consulted. Case management consulted. Discharge planning to [facility]. 04/13/2022; patient is lethargic sleepy, restraint for safety Continue current management, psych evaluation noted and appreciated 04/14/2022; patient is more alert today trying to pull , agitated On restraints, refusing to eat, consider Dobbhoff placement for tube feeding if needed 04/15/2022; COVID-19 positive[ 03/31 and 04/13] Check inflammatory markers, ID consulted Patient is refusing medications and diet Confused and agitated, Dobbhoff placement and tube feeding per protocol History Interval history: I have seen and examined the patient at the bedside Patient's chart and medications reviewed Patient continues to be agitated requiring restraints Refusing medications and diet COVID-positive x2 On contact and droplet isolation Vital signs noted Hospitalist Physical - Constitutional Vitals: Temp Pulse Resp BP Pulse Ox 97.9 F 72 20 144/72 100 04/15/22 06:19 04/15/22 06:19 04/15/22 06:19 04/15/22 06:19 04/15/22 06:57 General appearance: Present: mild distress, cachectic, other (Agitated ,restrained for safety) - EENT Eyes: Present: PERRL, EOM intact - Neck Neck: Present: supple, normal ROM - Respiratory Respiratory effort: normal Respiratory: bilateral: diminished, negative: rales, rhonchi, wheezing - Cardiovascular Rhythm: regular Heart Sounds: Present: S1 & S2 - Extremities Extremities: no ischemia, No edema - Abdominal General gastrointestinal: soft, non-tender, non-distended, normal bowel sounds - Integumentary Integumentary: Present: clear, warm - Psychiatric Psychiatric: appropriate mood/affect, cooperative - Neurologic Neurologic: CNII-XII intact, moves all extremities Results - Labs CBC & Chem 7: 04/08/22 07:15 04/12/22 10:45 Labs: Laboratory Last Values WBC 5.4 K/mm3 (4.5-11.0) 04/08/22 07:15 RBC 4.24 M/mm3 (3.65-5.03) 04/08/22 07:15 Hgb 13.6 gm/dl (11.8-15.2) 04/08/22 07:15 Hct 37.3 % (35.5-45.6) 04/08/22 07:15 MCV 88 fl (84-94) 04/08/22 07:15 MCH 32 pg (28-32) 04/08/22 07:15 MCHC 36 % (32-34) H 04/08/22 07:15 RDW 13.3 % (13.2-15.2) 04/08/22 07:15 Plt Count 156 K/mm3 (140-440) 04/08/22 07:15 Lymph % (Auto) 6.3 % (13.4-35.0) L 04/08/22 07:15 [place] % (Auto) 9.8 % (0.0-7.3) H 04/08/22 07:15 Eos % (Auto) 0.0 % (0.0-4.3) 04/08/22 07:15 Baso % (Auto) 0.1 % (0.0-1.8) 04/08/22 07:15 Lymph # (Auto) 0.3 K/mm3 (1.2-5.4) L 04/08/22 07:15 [place] # (Auto) 0.5 K/mm3 (0.0-0.8) 04/08/22 07:15 Eos # (Auto) 0.0 K/mm3 (0.0-0.4) 04/08/22 07:15 Baso # (Auto) 0.0 K/mm3 (0.0-0.1) 04/08/22 07:15 Seg Neutrophils % 83.8 % (40.0-70.0) H 04/08/22 07:15 Seg Neutrophils # 4.6 K/mm3 (1.8-7.7) 04/08/22 07:15 Sodium 149 mmol/L (137-145) H 04/12/22 10:45 Potassium 4.3 mmol/L (3.6-5.0) 04/12/22 10:45 Chloride 112.3 mmol/L (98-107) H 04/12/22 10:45 Carbon Dioxide 24 mmol/L (22-30) 04/12/22 10:45 Anion Gap 17 mmol/L 04/12/22 10:45 BUN 35 mg/dL (9-20) H 04/12/22 10:45 Creatinine 0.7 mg/dL (0.8-1.3) L 04/12/22 10:45 Estimated GFR > 60 ml/min 04/12/22 10:45 BUN/Creatinine Ratio 50 % 04/12/22 10:45 Glucose 131 mg/dL (75-100) H 04/12/22 10:45 Calcium 8.9 mg/dL (8.4-10.2) 04/12/22 10:45 Magnesium 2.50 mg/dL (1.7-2.3) H 04/12/22 10:45 Total Bilirubin 0.60 mg/dL (0.1-1.2) 04/12/22 10:45 AST 43 units/L (5-40) H 04/12/22 10:45 ALT 66 units/L (7-56) H 04/12/22 10:45 Alkaline Phosphatase 88 units/L (35-129) 04/12/22 10:45 Total Protein 6.1 g/dL (6.3-8.2) L 04/12/22 10:45 Albumin 3.8 g/dL (3.9-5) L 04/12/22 10:45 Albumin/Globulin Ratio 1.7 % 04/12/22 10:45 SARS-CoV-2 (PCR) Positive (Negative) A 04/13/22 09:20 [place]/IV: Voiding Method Incontinent Active Medications - Current Medications Current Medications: Generic Name Dose Route Start Last Admin Trade Name Freq PRN Reason Stop Dose Admin Acetaminophen 650 mg 04/06/22 15:59 Acetaminophen 325 Mg Tab PO Q4H PRN Pain MILD(1-3)/Fever >100.5/MCKENZIE Albuterol 2.5 mg 04/06/22 15:59 Albuterol 2.5 Mg/3 Ml Nebu IH Q4HRT PRN Shortness Of Breath Ascorbic Acid 500 mg 04/06/22 22:00 04/14/22 22:10 Ascorbic Acid 500 Mg Tab PO 04/15/22 21:59 500 mg BID GALINA Administration Aspirin 81 mg 04/07/22 10:00 04/14/22 09:25 Aspirin Ec 81 Mg Tab PO 81 mg QDAY GALINA Administration Cholecalciferol 1,000 unit 04/07/22 10:00 04/14/22 09:25 Cholecalciferol (Vit D3) 1000 Unit (25 Mcg) Tab PO 1,000 unit QDAY GALINA Administration Fluticasone Propionate 50 mcg 04/07/22 10:00 04/14/22 09:24 Fluticasone Propionate Nasal [place] 16 Gm NS 50 mcg QDAY GALINA Administration Heparin Sodium (Porcine) 5,000 unit 04/06/22 22:00 04/14/22 22:10 Heparin 5,000 Unit/1 Ml Vial SUB-Q 5,000 unit Q12HR GALINA Administration Hydromorphone HCl 0.5 mg 04/06/22 15:59 04/12/22 19:53 Hydromorphone 0.5 Mg/0.5 Ml Inj IV 0.5 mg Q23H PRN Administration Pain , Severe (7-10) Sodium Chloride 1,000 mls @ 50 mls/hr 04/12/22 15:00 04/14/22 22:11 Nacl 0.45% 1000 Ml IV 50 mls/hr DIRECT GALINA Administration Lorazepam 0.5 mg 04/08/22 15:00 04/15/22 00:16 Lorazepam 2 Mg/Ml Vial IV 0.5 mg Q23H PRN Administration Agitation Melatonin 5 mg 04/07/22 11:21 04/11/22 23:27 Melatonin 5 Mg Tab PO 5 mg QHS PRN Administration Sleep Methylprednisolone Sodium Succinate 40 mg 04/06/22 18:00 04/15/22 01:51 Methylprednisolone Sod Succinate 40 Mg/1 Ml Inj IV 04/15/22 17:59 40 mg Q8H GALINA Administration Mirtazapine 15 mg 04/11/22 22:00 04/14/22 22:10 Mirtazapine 15 Mg Tab PO 15 mg QHS GALINA Administration Ondansetron HCl 4 mg 04/06/22 15:59 Ondansetron 4 Mg/2 Ml Inj IV Q8H PRN Nausea And Vomiting Oxycodone/Acetaminophen 1 tab 04/06/22 15:59 04/13/22 22:21 Oxycodone /Acetaminophen 5-325mg Tab PO 1 tab Q16H PRN Administration Pain, Moderate (4-6) Sodium Chloride 10 ml 04/06/22 22:00 04/14/22 22:11 Sodium Chloride 0.9% 10 Ml Flush Syringe IV 10 ml BID GALINA Administration Sodium Chloride 10 ml 04/06/22 15:59 Sodium Chloride 0.9% 10 Ml Flush Syringe IV PRN PRN LINE FLUSH Tiotropium [place] 1 puff 04/07/22 10:00 04/14/22 09:04 Tiotropium 18 Mcg Cap Inhalation IH 1 puff QDAY GALINA Administration Zinc Sulfate 220 mg 04/06/22 22:00 04/14/22 22:10 Zinc Sulfate 220 Mg Cap PO 04/15/22 21:59 220 mg BID GALINA Administration Nutrition/Malnutrition Assess - Dietary Evaluation Nutrition/Malnutrition Findings: Nutrition Notes Start: 04/07/22 15:47 Freq: Status: Active Protocol: Document 04/14/22 12:28 FARIBA (Rec: 04/14/22 12:58 [email or web address] [id number]) Nutrition Notes Initial or Follow up Reassessment Current Diagnosis Diabetes,Hypertension, Malnutrition Other Pertinent Diagnosis COVID-19, Debility, Dehydration, Metabolic Encephalopathy, Dementia ... Current Diet Regular Diet (since D 04/06), D Suppl (since D 04/14). Labs/Tests 04/14: Na 149, Cl 112.3, BUN 35, Crea 0.7, Glu 131, Mg 2.5. Pertinent Medications 04/14: Vit C, Vit D3, ZnSO4. Height 5 ft 2 in Weight 47.3 kg [place] Body Weight (kg) 53.63 BMI 19.1 Weight change and time frame 0.3 Kg body weight gain in 1 week reported. Weight Status Appropriate Subjective/Other Information RD consult for routine F/U on dietary advancement. Pt's PO intake of meals has been Negligible (0%), according to ADL notes. I will prescribe dietary supplements to compensate for poor or insufficient PO intake of meals. Pt is on Room Air, O2 saturation @ 94%, according to Physical Assessment History notes. Pt has missing teeth, according to Physical Assessment History notes. Pt has been very combative, refuses to eat and take oral medications, has to be restrained to bed, according to Progress notes. Percent of energy/protein needs met: Prescribed Regular Diet provides for energy/protein needs (2,289 Kcal/89 g) during LOS; additionally, Dietary Supplements will compensate for possible poor or insufficient PO intake of meals with 660 Kcal and 30 g of protein. Burn Absent Trauma Absent GI Symptoms None Food Allergy Yes Skin Integrity/Comment Assessment WNL. Current % PO Negligible Minimum of two criteria No Fluid Accumulation N/A Reduced Press Loader Strength N/A (non-severe) Protein-Calorie Malnutrition N\A #1 Nutrition Diagnosis Predicted suboptimal energy intake Etiology Dementia with behavioral disturbance. As Evidenced by Signs and Symptoms Pt's PO intake of meals has been Negligible (0%), according to ADL notes. Is patient on ventilator? No Is Patient Ambulatory and/or Out of Bed Yes REE-([place]-St. Jeor-ambulatory/OOB) [ 1419.925 NUTR.MSJOOB] Kcal/Kg value to use for calculation 27 Approximate Energy Requirements Using 1277 kcal/Kg Calculation Used for Recommendations Kcal/kg Additional Notes Protein: 1-1.2 g/Kg IBW; 54-65 g/day. Fluids: 1 ml/Kcal, or as per MD. Nutrition Intervention Change Diet Order: Continue Regular Diet as tolerated. Add Supplement/Snack (indicate name/kcal Start 8 fl oz Glucerna; TID. /protein ) Provides kCal: 660 Provides Protein (gm) 30 Goal #1 Compensate, through dietary supplementation, for possible poor or insufficient PO intake of meals during LOS. Goal #2 Adjust the dietary intervention to better serve Pt's needs and clinical conditions during LOS. Follow-Up By: 04/21/22 Additional Comments Continue monitoring food tolerance, %PO intake of meals , and BM.
[2022-04-15] MEDS: ASPIRIN EC 81 MG TAB PO SCH (09:00)
[2022-04-15] MEDS: FLUTICASONE PROPIONATE NASAL SPRAY 16 GM NS SCH (09:00)
[2022-04-15] MEDS: TIOTROPIUM 18 MCG CAP INHALATION IH SCH (09:01)
[2022-04-15] MEDS: CHOLECALCIFEROL (VIT D3) 1000 UNIT (25 mcg) TAB PO SCH (09:01)
[2022-04-15] MEDS: ZINC SULFATE 220 MG CAP PO SCH (09:01)
[2022-04-15] MEDS: ASCORBIC ACID 500 MG TAB PO SCH (09:01)
[2022-04-15] MEDS: HEPARIN 5,000 UNIT/1 ML VIAL SUB-Q SCH ×2 (09:01→22:30)
--- NOTE | 2022-04-15 14:34 | Progress Note ---
Subjective - Reason for Consult Consult date: 04/15/22 Reason for consult: agitation - Chief Complaint Chief complaint: The patient was seen today. He is in 4 point restraints. He is sleeping. He is unable to engage in the evaluation. Nurse note states the patient has been agitated, combative and pulling out lines. REVIEW OF SYSTEMS Unable to assess MENTAL STATUS EXAMINATION Unable to assess Diagnoses: Dementia with behavioral disturbances Treatment Plan: Start Valproic acid 125mg po daily Remeron 15mg po qhs to stimulate appetite and promote rest Appreciate and agree with Lorazepam for agitation Medical: Per primary Sitter: Defer to primary Disposition: Do not recommend inpatient psych treatment at this time. This may change once the patient is medically clear. Will follow for psych progress and med management Thank you Case staffed with Dr. Hebert Mental Status Exam - Vital signs Last Vital Signs Temp 97.9 F 04/15/22 06:19 Pulse 72 04/15/22 09:01 Resp 16 04/15/22 09:01 BP 144/72 04/15/22 06:19 Pulse Ox 100 04/15/22 06:57
--- NOTE | 2022-04-15 14:39 | Consultation ---
History of Present Illness - Reason for Consult Consult date: 04/15/22 - History of Present Illness 76-year-old man past medical history of vascular dementia, diabetes, hypertension Pres admitted with COVID-19 on 04-20 was admitted to the medical floor from the psychiatric geriatric unit. He is now confused and lethargic. Prior to transfer he had increased confusion and agitation for 36 hours, and decreased oral intake. He has bedbound, requiring significant assistance with activities of daily living. History obtained from the chart. Afebrile, normal white count. COVID-positive 04/13/2022. Normal renal function. No cultures to review. Currently on methylprednisolone. He remains on room air. Imaging personally reviewed: Chest x-ray: No acute findings. Review of systems: Deferred to reduce to the risk of transmission of COVID-19 Past History Past Medical History: diabetes, hypertension, other (See HPI) Past Surgical History: No surgical history, Other (Reviewed) Social history: single, Lives alone. denies: smoking, alcohol abuse, prescription drug abuse Family history: diabetes, hypertension Medications and Allergies Allergies Allergy/AdvReac Type Severity Reaction Status Date / Time onion Allergy Unknown Verified 03/27/22 10:21 Home Medications Medication Instructions Recorded Confirmed Last Taken Type Albuterol Sulfate [Proair 90 mcg IH Q4HR 03/23/22 04/13/22 Unknown History Digihaler] Aspirin EC [Halfprin EC] 81 mg PO QDAY 03/23/22 04/13/22 Unknown History Cholecalciferol Vit D3 [Vitamin D3 2,000 unit PO QDAY 03/23/22 04/13/22 Unknown History 1,000 UNIT TAB] Fluticasone [Flonase] 1 spray NS QDAY 03/23/22 04/13/22 Unknown History Multivit-Min/FA/Lycopen/Lutein 1 each PO DAILY 03/23/22 04/13/22 Unknown History [Abc Plus Tablet] Tiotropium [Spiriva] 18 mcg IH QDAY 03/23/22 04/13/22 Unknown History Varenicline Tartrate 0.5 mg PO DAILY 03/23/22 04/13/22 Unknown History Active Meds: Active Medications Acetaminophen (Acetaminophen 325 Mg Tab) 650 mg PO Q4H PRN PRN Reason: Pain MILD(1-3)/Fever >100.5/MCKENZIE Albuterol (Albuterol 2.5 Mg/3 Ml Nebu) 2.5 mg IH Q4HRT PRN PRN Reason: Shortness Of Breath Ascorbic Acid (Ascorbic Acid 500 Mg Tab) 500 mg PO BID [facility] Stop: 04/15/22 21:59 Last Admin: 04/15/22 09:01 Dose: Not Given Aspirin (Aspirin Ec 81 Mg Tab) 81 mg PO QDAY [facility] Last Admin: 04/15/22 09:00 Dose: Not Given Cholecalciferol (Cholecalciferol (Vit D3) 1000 Unit (25 Mcg) Tab) 1,000 unit PO QDAY [facility] Last Admin: 04/15/22 09:01 Dose: Not Given Fluticasone Propionate (Fluticasone Propionate Nasal [place] 16 Gm) 50 mcg NS QDAY [facility] Last Admin: 04/15/22 09:00 Dose: Not Given Heparin Sodium (Porcine) (Heparin 5,000 Unit/1 Ml Vial) 5,000 unit SUB-Q Q12HR [facility] Last Admin: 04/15/22 09:01 Dose: Not Given Hydromorphone HCl (Hydromorphone 0.5 Mg/0.5 Ml Inj) 0.5 mg IV Q23H PRN PRN Reason: Pain , Severe (7-10) Last Admin: 04/12/22 19:53 Dose: 0.5 mg Sodium Chloride (Nacl 0.45% 1000 Ml) 1,000 mls @ 50 mls/hr IV DIRECT [facility] Last Admin: 04/14/22 22:11 Dose: 50 mls/hr Lorazepam (Lorazepam 2 Mg/Ml Vial) 0.5 mg IV Q23H PRN PRN Reason: Agitation Last Admin: 04/15/22 00:16 Dose: 0.5 mg Melatonin (Melatonin 5 Mg Tab) 5 mg PO QHS PRN PRN Reason: Sleep Last Admin: 04/11/22 23:27 Dose: 5 mg Methylprednisolone Sodium Succinate (Methylprednisolone Sod Succinate 40 Mg/1 Ml Inj) 40 mg IV Q8H [facility] Stop: 04/15/22 17:59 Last Admin: 04/15/22 09:04 Dose: 40 mg Mirtazapine (Mirtazapine 15 Mg Tab) 15 mg PO QHS [facility] Last Admin: 04/14/22 22:10 Dose: 15 mg Ondansetron HCl (Ondansetron 4 Mg/2 Ml Inj) 4 mg IV Q8H PRN PRN Reason: Nausea And Vomiting Oxycodone/Acetaminophen (Oxycodone /Acetaminophen 5-325mg Tab) 1 tab PO Q16H PRN PRN Reason: Pain, Moderate (4-6) Last Admin: 04/13/22 22:21 Dose: 1 tab Sodium Chloride (Sodium Chloride 0.9% 10 Ml Flush Syringe) 10 ml IV BID [facility] Last Admin: 04/15/22 09:01 Dose: Not Given Sodium Chloride (Sodium Chloride 0.9% 10 Ml Flush Syringe) 10 ml IV PRN PRN PRN Reason: LINE FLUSH Tiotropium [place] (Tiotropium 18 Mcg Cap Inhalation) 1 puff IH QDAY [facility] Last Admin: 04/15/22 09:01 Dose: 1 puff Zinc Sulfate (Zinc Sulfate 220 Mg Cap) 220 mg PO BID [facility] Stop: 04/15/22 21:59 Last Admin: 04/15/22 09:01 Dose: Not Given Physical Examination - Physical Exam Narrative exam: Physical exam deferred to reduce risk of transmission of COVID-19. Please refer to primary team's note. - Constitutional Vitals: Vital Signs Temp Pulse Resp BP Pulse Ox 97.9 F 72 16 144/72 100 04/15/22 06:19 04/15/22 09:01 04/15/22 09:01 04/15/22 06:19 04/15/22 06:57 Temperature -Last 24 Hours Temperature 97.9 F Results - Labs CBC & Chem 7: 04/08/22 07:15 04/12/22 10:45 Labs: Abnormal lab results 04/15/22 Range/Units 10:49 Ferritin 1248.0 H (30.0-300.0) ng/mL Assessment and Plan Cultures: COVID positive #Severe COVID-19 pneumonia: Patient presented with a week of symptoms, chest x- ray with diffuse bilateral infiltrates, admission O2 sats decreasedon room air. Inflammatory markers elevated #Acute hypoxemic respiratory failure: Likely secondary to COVID-19 infection. Currently on room air. #Vascular dementia: unable to obtain history from the patient #DM2: tight glycemic control for best outcomes. Recommendations: -Steroids for 10 days as patient has been hypoxic. -If patient requires supplemntal O2 can give Remdesivir 200 mg IV q day x 1 followed by 100 mg IV q day x 4 days -Obtain q48-72h inflammatory markers - ferritin, Ddimer, CRP, LDH -No need for empiric antibiotics -Anticoagulation per hospital protocol -Proning as able Thank you for the consult, we will continue to follow. MD Vinh Lizarraga [facility] O: [phone] F: [phone]
--- NOTE | 2022-04-15 15:36 | XRay Report ---
ABDOMEN 1 VIEW(S) 04/15/2022 2:26 PM INDICATION / CLINICAL INFORMATION: NG tube. COMPARISON: None available. FINDINGS: The tip of a weighted feeding tube projects over the body of the stomach. Signer Name: Mihir Carrington MD Signed: 04/15/2022 3:31 PM Workstation Name: [id number]
[2022-04-15] MEDS ORDERED: SIMPLE SYRUP 15 ML FEEDTUBE PRN ×2 (16:02)
[2022-04-15] MEDS ORDERED: LIPASE 10,500/PROTEASE 25,000/AMYLASE 43,750 (UNITS) DR CAP FEEDTUBE PRN (16:02)
[2022-04-15] MEDS ORDERED: SODIUM BICARBONATE 325 MG TAB FEEDTUBE PRN (16:02)
[2022-04-15] MEDS: VALPROIC ACID 250 MG/5 ML ORAL LIQD PO SCH (16:55)
[2022-04-15] MEDS: SODIUM CHLORIDE 0.45% 1000 ML 1,000 ML IV SCH ×2 (17:06→17:14)
[2022-04-15] MEDS: MIRTAZAPINE 15 MG TAB PO SCH (22:30)
[2022-04-16 06:12] LABS: Alanine Aminotransferase 54 units/L (7-56); Albumin 3.8 g/dL (3.9-5); Blood Urea Nitrogen 30 mg/dL (9-20); Calcium 8.9 mg/dL (8.4-10.2); Hemolysis Index 8
[2022-04-16 06:15] LABS: BUN/Creatinine Ratio 60
--- NOTE | 2022-04-16 08:27 | Progress Note ---
Assessment and Plan Assessment and plan: 76 YO Male HD #5 with Vascular Dementia with Behavioral disturbance, Cerebral Atherosclerosis, DM, BPH, HTN, Malnutrition, Coronavirus Infection. Patient remains confused, lethargic with diminished cognition. Patient remains at baseline level of cognition and function. Hospice team consulted. Case alexandre castro consulted. Discharge planning to senior care facility with hospice care. -- COVID-19 positive 03/31/2022 and 04/13/2022 coronavirus infection Coronavirus protocol: IV antibiotic therapy, atorvastatin therapy as clinically indicated, vitamin C therapy, vitamin D therapy, zinc therapy, supplemental oxygen, pulse oximetry, prophylactic anticoagulation. Patient saturating well on room air Inflammatory markers, ID consult --Vascular dementia with behavioral disturbance Verbal prompting, verbal redirection, benzodiazepine therapy as clinically indicated. --Cerebral atherosclerosis Risk factor reduction, antiplatelet therapy, supportive care. --General debility Bed alarm, fall precautions, supportive care. Physical therapy occupational therapy -- Mild to moderate malnutrition Increase protein intake, dietary supplementation when awake and alert only. A spiration precautions. --Nicotine dependence Smoking cessation counseled, supportive care, behavior change counseled, pulse 50 minutes. --Volume depletion/dehydration IV fluids and supportive care, increase oral fluids --Metabolic encephalopathy Multifactorial , underlying dementia , malnutrition , advanced age COVID-19 infection , psych problems Treat underlying cause and supportive care --DVT prophylaxis SCD to bilateral extremities while in bed, prophylactic anticoagulation --Advance care planning Disease education done, care plan discussed, diagnoses discussed, prognosis discussed, patient is full code at this time. Discussed patient care with Quynh Lorenza, . The plan is to make patient DNR and plan for discharge to senior care facility with hospice care. Awaiting arrival of Ms. Britt to the hospital tomorrow for family conference. +30 minutes. --Preventive health care Counseled regarding patient diagnosis and patient prognosis. Home safety precautions. Patient to follow-up with primary care physician as outpatient for all age and risk factor appropriate screening test. +30 minutes. Please closely monitor the patient and adjust the management as needed Plan of care reviewed with the patient's nurse DC planning per case management Brief history and daily hospital course 76 YO Male HD #5 with Vascular Dementia with Behavioral disturbance, Cerebral Atherosclerosis, DM, BPH, HTN, Malnutrition, Coronavirus Infection. Patient remains confused, lethargic with diminished cognition. Patient remains at baseline level of cognition and function. Hospice team consulted. Case management consulted. Discharge planning to senior care facility with [facility]. 04/13/2022; patient is lethargic sleepy, restraint for safety Continue current management, psych evaluation noted and appreciated 04/14/2022; patient is more alert today trying to pull , agitated On restraints, refusing to eat, consider Dobbhoff placement for tube feeding if needed 04/15/2022; COVID-19 positive[ 03/31 and 04/13] Check inflammatory markers, ID consulted Patient is refusing medications and diet Confused and agitated, Dobbhoff placement and tube feeding per protocol 04/16/2022; patient is more alert and awake Tolerating liquids, will advance the diet as tolerated Check physical therapy occupational therapy evaluation and recommendations DC planning per case management History Interval history: I have seen and examined the patient at the bedside No new events reported by the nursing staff Patient is more alert and awake Requesting food Tolerated liquids Slightly agitated restraint for safety Hospitalist Physical - Constitutional Vitals: Temp Pulse Resp BP Pulse Ox 97.9 F 83 18 158/84 96 04/15/22 22:30 04/15/22 22:30 04/15/22 22:30 04/15/22 22:30 04/15/22 22:30 General appearance: Present: no acute distress, cachectic, other (Agitated ,restrained for safety) - EENT Eyes: Present: PERRL, EOM intact - Neck Neck: Present: supple, normal ROM - Respiratory Respiratory effort: normal Respiratory: bilateral: diminished, negative: rales, rhonchi, wheezing - Cardiovascular Rhythm: regular Heart Sounds: Present: S1 & S2 - Extremities Extremities: no ischemia, No edema - Abdominal General gastrointestinal: soft, non-tender, non-distended, normal bowel sounds - Integumentary Integumentary: Present: clear, warm - Psychiatric Psychiatric: appropriate mood/affect, agitated - Neurologic Neurologic: moves all extremities, other (Confused) Results - Labs CBC & Chem 7: 04/08/22 07:15 04/16/22 05:28 Labs: Laboratory Last Values WBC 5.4 K/mm3 (4.5-11.0) 04/08/22 07:15 RBC 4.24 M/mm3 (3.65-5.03) 04/08/22 07:15 Hgb 13.6 gm/dl (11.8-15.2) 04/08/22 07:15 Hct 37.3 % (35.5-45.6) 04/08/22 07:15 MCV 88 fl (84-94) 04/08/22 07:15 MCH 32 pg (28-32) 04/08/22 07:15 MCHC 36 % (32-34) H 04/08/22 07:15 RDW 13.3 % (13.2-15.2) 04/08/22 07:15 Plt Count 156 K/mm3 (140-440) 04/08/22 07:15 Lymph % (Auto) 6.3 % (13.4-35.0) L 04/08/22 07:15 [place] % (Auto) 9.8 % (0.0-7.3) H 04/08/22 07:15 Eos % (Auto) 0.0 % (0.0-4.3) 04/08/22 07:15 Baso % (Auto) 0.1 % (0.0-1.8) 04/08/22 07:15 Lymph # (Auto) 0.3 K/mm3 (1.2-5.4) L 04/08/22 07:15 [place] # (Auto) 0.5 K/mm3 (0.0-0.8) 04/08/22 07:15 Eos # (Auto) 0.0 K/mm3 (0.0-0.4) 04/08/22 07:15 Baso # (Auto) 0.0 K/mm3 (0.0-0.1) 04/08/22 07:15 Seg Neutrophils % 83.8 % (40.0-70.0) H 04/08/22 07:15 Seg Neutrophils # 4.6 K/mm3 (1.8-7.7) 04/08/22 07:15 D-Dimer 227.33 ng/mlDDU (0-234) 04/15/22 10:49 Sodium 145 mmol/L (137-145) 04/16/22 05:28 Potassium 3.9 mmol/L (3.6-5.0) 04/16/22 05:28 Chloride 109.2 mmol/L (98-107) H 04/16/22 05:28 Carbon Dioxide 27 mmol/L (22-30) 04/16/22 05:28 Anion Gap 13 mmol/L 04/16/22 05:28 BUN 30 mg/dL (9-20) H 04/16/22 05:28 Creatinine 0.5 mg/dL (0.8-1.3) L 04/16/22 05:28 Estimated GFR > 60 ml/min 04/16/22 05:28 BUN/Creatinine Ratio 60 % 04/16/22 05:28 Glucose 144 mg/dL (75-100) H 04/16/22 05:28 Calcium 8.9 mg/dL (8.4-10.2) 04/16/22 05:28 Magnesium 2.50 mg/dL (1.7-2.3) H 04/12/22 10:45 Ferritin 1248.0 ng/mL (30.0-300.0) H 04/15/22 10:49 Total Bilirubin 0.60 mg/dL (0.1-1.2) 04/16/22 05:28 AST 25 units/L (5-40) 04/16/22 05:28 ALT 54 units/L (7-56) 04/16/22 05:28 Alkaline Phosphatase 92 units/L (35-129) 04/16/22 05:28 C-Reactive Protein 0.30 mg/dL (0.00-1.30) 04/15/22 10:49 Total Protein 5.7 g/dL (6.3-8.2) L 04/16/22 05:28 Albumin 3.8 g/dL (3.9-5) L 04/16/22 05:28 Albumin/Globulin Ratio 2.0 % 04/16/22 05:28 SARS-CoV-2 (PCR) Positive (Negative) A 04/13/22 09:20 Kaufman/IV: Voiding Method Incontinent Active Medications - Current Medications Current Medications: Generic Name Dose Route Start Last Admin Trade Name Freq PRN Reason Stop Dose Admin Acetaminophen 650 mg 04/06/22 15:59 Acetaminophen 325 Mg Tab PO Q4H PRN Pain MILD(1-3)/Fever >100.5/MCKENZIE Albuterol 2.5 mg 04/06/22 15:59 Albuterol 2.5 Mg/3 Ml Nebu IH Q4HRT PRN Shortness Of Breath Lipase/Protease/Amylase 1 each 04/15/22 16:02 Lipase 10,500/Protease 25,000/Amylase 43,750 (Units) Dr Denis JAMILTUBE PRN PRN For Clogged Feeding Tube Aspirin 81 mg 04/07/22 10:00 04/15/22 09:00 Aspirin Ec 81 Mg Tab PO Not Given QDAY [facility] Cholecalciferol 1,000 unit 04/07/22 10:00 04/15/22 09:01 Cholecalciferol (Vit D3) 1000 Unit (25 Mcg) Tab PO Not Given QDAY [facility] Fluticasone Propionate 50 mcg 04/07/22 10:00 04/15/22 09:00 Fluticasone Propionate Nasal [place] 16 Gm NS Not Given QDAY [facility] Heparin Sodium (Porcine) 5,000 unit 04/06/22 22:00 04/15/22 22:30 Heparin 5,000 Unit/1 Ml Vial SUB-Q 5,000 unit Q12HR GALINA Administration Hydromorphone HCl 0.5 mg 04/06/22 15:59 04/12/22 19:53 Hydromorphone 0.5 Mg/0.5 Ml Inj IV 0.5 mg Q23H PRN Administration Pain , Severe (7-10) Sodium Chloride 1,000 mls @ 50 mls/hr 04/12/22 15:00 04/15/22 17:14 Nacl 0.45% 1000 Ml IV 50 mls/hr DIRECT GALINA Administration Lorazepam 0.5 mg 04/08/22 15:00 04/15/22 00:16 Lorazepam 2 Mg/Ml Vial IV 0.5 mg Q23H PRN Administration Agitation Melatonin 5 mg 04/07/22 11:21 04/11/22 23:27 Melatonin 5 Mg Tab PO 5 mg QHS PRN Administration Sleep Mirtazapine 15 mg 04/11/22 22:00 04/15/22 22:30 Mirtazapine 15 Mg Tab PO 15 mg QHS GALINA Administration Ondansetron HCl 4 mg 04/06/22 15:59 Ondansetron 4 Mg/2 Ml Inj IV Q8H PRN Nausea And Vomiting Oxycodone/Acetaminophen 1 tab 04/06/22 15:59 04/13/22 22:21 Oxycodone /Acetaminophen 5-325mg Tab PO 1 tab Q16H PRN Administration Pain, Moderate (4-6) Simple Syrup 15 ml 04/15/22 16:02 Simple Syrup 15 Ml FEEDTUBE PRN PRN Hypoglycemia Simple Syrup 30 ml 04/15/22 16:02 Simple Syrup 15 Ml FEEDTUBE PRN PRN Hypoglycemia Sodium Bicarbonate 325 mg 04/15/22 16:02 Sodium Bicarbonate 325 Mg Tab FEEDTUBE PRN PRN For Clogged Feeding Tube Sodium Chloride 10 ml 04/06/22 22:00 04/15/22 22:30 Sodium Chloride 0.9% 10 Ml Flush Syringe IV 10 ml BID GALINA Administration Sodium Chloride 10 ml 04/06/22 15:59 Sodium Chloride 0.9% 10 Ml Flush Syringe IV PRN PRN LINE FLUSH Tiotropium [place] 1 puff 04/07/22 10:00 04/15/22 09:01 Tiotropium 18 Mcg Cap Inhalation IH 1 puff QDAY GALINA Administration Valproic Acid 125 mg 04/15/22 15:30 04/15/22 16:55 Valproic Acid 250 Mg/5 Ml Oral Liqd PO 125 mg DAILY GALINA Administration Nutrition/Malnutrition Assess - Dietary Evaluation Nutrition/Malnutrition Findings: Nutrition Notes Start: 04/07/22 1 5:47 Freq: Status: Active Protocol: Document 04/15/22 16:40 FARIBA (Rec: 04/15/22 17:03 FARIBA [id number]) Nutrition Notes Initial or Follow up Brief Note Current Diagnosis Diabetes,Hypertension, Malnutrition Other Pertinent Diagnosis COVID-19, Debility, Dehydration, Metabolic Encephalopathy, Dementia ... Current Diet TF-Glucerna 1.2 Joss @ 45 ml/hr (from B 04/16). Height 5 ft 2 in Weight 42.9 kg [place] Body Weight (kg) 53.63 BMI 17.3 Weight Status Underweight Subjective/Other Information RD consult for write/mange TF. I will prescribe and order TF to provide Pt with at least 75 % of energy/protein needs. Percent of energy/protein needs met: Prescribed TF-Glucerna 1.2 Joss @ 45 ml/hr provides for energy/protein needs (1,285 Kcal/64 g) during LOS, 100% Kcal; 100% AA. #1 Nutrition Diagnosis Inadequate oral intake Comments: Change Nutrition Diagnosis. RD consult for write/mange TF. Etiology Dementia with behavioral disturbance. As Evidenced by Signs and Symptoms Pt's PO intake of meals has been Negligible (0%), according to ADL notes. Diagnosis Progress(for reassessment Improved documentation) Is patient on ventilator? No Is Patient Ambulatory and/or Out of Bed Yes REE-([place]-St. Jeor-ambulatory/OOB) [ 1362.725 NUTR.MSJOOB] Kcal/Kg value to use for calculation 30 Approximate Energy Requirements Using 1287 kcal/Kg Calculation Used for Recommendations Kcal/kg Additional Notes Protein: 1-1.2 g/Kg IBW; 54-65 g/day. Fluids: 1 ml/Kcal, or as per MD. Nutrition Intervention Change Diet Order: Discontinue. Nutrition Support: Start TF-Glucerna 1.2 Joss @ 45 ml/hr. Flush: 70 ml water Q 4 hr, or as per MD. Kcal 1,285 Protein (gm) 64 Carbohydrates (gm) 123 Fat (gm) 64 Fluid (mL) 862 Fiber (gm) 17 % RDI: 100% Kcal; 100% AA. Goal #1 Provide at least 75% of energy /protein needs through Enteral Feeding during LOS. Goal #2 Adjust the dietary intervention to better serve Pt's needs and clinical conditions during LOS. Follow-Up By: 04/18/22 Additional Comments Start monitoring TF tolerance and BM.
[2022-04-16] MEDS: TIOTROPIUM 18 MCG CAP INHALATION IH SCH (09:00)
[2022-04-16] MEDS: VALPROIC ACID 250 MG/5 ML ORAL LIQD PO SCH (09:38)
[2022-04-16] MEDS: FLUTICASONE PROPIONATE NASAL SPRAY 16 GM NS SCH (09:38)
[2022-04-16] MEDS: CHOLECALCIFEROL (VIT D3) 1000 UNIT (25 mcg) TAB PO SCH (09:39)
[2022-04-16] MEDS: ASPIRIN EC 81 MG TAB PO SCH (09:39)
[2022-04-16] MEDS: HEPARIN 5,000 UNIT/1 ML VIAL SUB-Q SCH ×2 (09:40→21:46)
[2022-04-16] MEDS: MIRTAZAPINE 15 MG TAB PO SCH (21:46)
[2022-04-16] MEDS: LORazepam 2 MG/ML VIAL IV PRN (21:46)
--- NOTE | 2022-04-17 07:48 | Progress Note ---
Assessment and Plan Assessment and plan: 76 YO Male HD #5 with Vascular Dementia with Behavioral disturbance, Cerebral Atherosclerosis, DM, BPH, HTN, Malnutrition, Coronavirus Infection. Patient remains confused, lethargic with diminished cognition. Patient remains at baseline level of cognition and function. Hospice team consulted. Case alexandre castro consulted. Discharge planning to snf facility with hospice care. -- COVID-19 positive 03/31/2022 and 04/13/2022 coronavirus infection Coronavirus protocol: IV antibiotic therapy, atorvastatin therapy as clinically indicated, vitamin C therapy, vitamin D therapy, zinc therapy, supplemental oxygen, pulse oximetry, prophylactic anticoagulation. Patient saturating well on room air Inflammatory markers, ID consult --Vascular dementia with behavioral disturbance Verbal prompting, verbal redirection, benzodiazepine therapy as clinically indicated. --Cerebral atherosclerosis Risk factor reduction, antiplatelet therapy, supportive care. --General debility Bed alarm, fall precautions, supportive care. Physical therapy occupational therapy -- Mild to moderate malnutrition Increase protein intake, dietary supplementation when awake and alert only. A spiration precautions. --Nicotine dependence Smoking cessation counseled, supportive care, behavior change counseled, pulse 50 minutes. --Volume depletion/dehydration IV fluids and supportive care, increase oral fluids --Metabolic encephalopathy Multifactorial , underlying dementia , malnutrition , advanced age COVID-19 infection , psych problems Treat underlying cause and supportive care --DVT prophylaxis SCD to bilateral extremities while in bed, prophylactic anticoagulation --Advance care planning Disease education done, care plan discussed, diagnoses discussed, prognosis discussed, patient is full code at this time. Discussed patient care with Quynh Lorenza, . The plan is to make patient DNR and plan for discharge to snf facility with hospice care. Awaiting arrival of Ms. Britt to the hospital tomorrow for family conference. +30 minutes. --Preventive health care Counseled regarding patient diagnosis and patient prognosis. Home safety precautions. Patient to follow-up with primary care physician as outpatient for all age and risk factor appropriate screening test. +30 minutes. Please closely monitor the patient and adjust the management as needed Plan of care reviewed with the patient's nurse DC planning per case management Brief history and daily hospital course 76 YO Male HD #5 with Vascular Dementia with Behavioral disturbance, Cerebral Atherosclerosis, DM, BPH, HTN, Malnutrition, Coronavirus Infection. Patient remains confused, lethargic with diminished cognition. Patient remains at baseline level of cognition and function. Hospice team consulted. Case management consulted. Discharge planning to snf facility with [facility]. 04/13/2022; patient is lethargic sleepy, restraint for safety Continue current management, psych evaluation noted and appreciated 04/14/2022; patient is more alert today trying to pull , agitated On restraints, refusing to eat, consider Dobbhoff placement for tube feeding if needed 04/15/2022; COVID-19 positive[ 03/31 and 04/13] Check inflammatory markers, ID consulted Patient is refusing medications and diet Confused and agitated, Dobbhoff placement and tube feeding per protocol 04/16/2022; patient is more alert and awake Tolerating liquids, will advance the diet as tolerated Check physical therapy occupational therapy evaluation and recommendations DC planning per case management 04/17/2022; patient is on pured diet Will advance the diet as tolerated History Interval history: I have seen and examined the patient at the bedside Patient's chart and medications reviewed Patient is still lethargic restraint for safety tolerating pure diet No new events reported by nursing staff Vital signs noted Hospitalist Physical - Constitutional Vitals: Temp Pulse Resp BP Pulse Ox 97.9 F 80 16 168/80 98 04/17/22 05:17 04/17/22 05:17 04/16/22 08:40 04/17/22 05:17 04/16/22 20:02 General appearance: Present: no acute distress, cachectic, other (Agitated ,restrained for safety) - EENT Eyes: Present: PERRL, EOM intact - Neck Neck: Present: supple, normal ROM - Respiratory Respiratory effort: normal Respiratory: bilateral: diminished, negative: rales, rhonchi, wheezing - Cardiovascular Rhythm: regular Heart Sounds: Present: S1 & S2 - Extremities Extremities: no ischemia, No edema - Abdominal General gastrointestinal: soft, non-tender, non-distended, normal bowel sounds - Integumentary Integumentary: Present: clear, warm - Psychiatric Psychiatric: appropriate mood/affect, cooperative - Neurologic Neurologic: CNII-XII intact, moves all extremities Results - Labs CBC & Chem 7: 04/08/22 07:15 04/16/22 05:28 Labs: Laboratory Last Values WBC 5.4 K/mm3 (4.5-11.0) 04/08/22 07:15 RBC 4.24 M/mm3 (3.65-5.03) 04/08/22 07:15 Hgb 13.6 gm/dl (11.8-15.2) 04/08/22 07:15 Hct 37.3 % (35.5-45.6) 04/08/22 07:15 MCV 88 fl (84-94) 04/08/22 07:15 MCH 32 pg (28-32) 04/08/22 07:15 MCHC 36 % (32-34) H 04/08/22 07:15 RDW 13.3 % (13.2-15.2) 04/08/22 07:15 Plt Count 156 K/mm3 (140-440) 04/08/22 07:15 Lymph % (Auto) 6.3 % (13.4-35.0) L 04/08/22 07:15 [place] % (Auto) 9.8 % (0.0-7.3) H 04/08/22 07:15 Eos % (Auto) 0.0 % (0.0-4.3) 04/08/22 07:15 Baso % (Auto) 0.1 % (0.0-1.8) 04/08/22 07:15 Lymph # (Auto) 0.3 K/mm3 (1.2-5.4) L 04/08/22 07:15 [place] # (Auto) 0.5 K/mm3 (0.0-0.8) 04/08/22 07:15 Eos # (Auto) 0.0 K/mm3 (0.0-0.4) 04/08/22 07:15 Baso # (Auto) 0.0 K/mm3 (0.0-0.1) 04/08/22 07:15 Seg Neutrophils % 83.8 % (40.0-70.0) H 04/08/22 07:15 Seg Neutrophils # 4.6 K/mm3 (1.8-7.7) 04/08/22 07:15 D-Dimer 227.33 ng/mlDDU (0-234) 04/15/22 10:49 Sodium 145 mmol/L (137-145) 04/16/22 05:28 Potassium 3.9 mmol/L (3.6-5.0) 04/16/22 05:28 Chloride 109.2 mmol/L (98-107) H 04/16/22 05:28 Carbon Dioxide 27 mmol/L (22-30) 04/16/22 05:28 Anion Gap 13 mmol/L 04/16/22 05:28 BUN 30 mg/dL (9-20) H 04/16/22 05:28 Creatinine 0.5 mg/dL (0.8-1.3) L 04/16/22 05:28 Estimated GFR > 60 ml/min 04/16/22 05:28 BUN/Creatinine Ratio 60 % 04/16/22 05:28 Glucose 144 mg/dL (75-100) H 04/16/22 05:28 Calcium 8.9 mg/dL (8.4-10.2) 04/16/22 05:28 Magnesium 2.50 mg/dL (1.7-2.3) H 04/12/22 10:45 Ferritin 1248.0 ng/mL (30.0-300.0) H 04/15/22 10:49 Total Bilirubin 0.60 mg/dL (0.1-1.2) 04/16/22 05:28 AST 25 units/L (5-40) 04/16/22 05:28 ALT 54 units/L (7-56) 04/16/22 05:28 Alkaline Phosphatase 92 units/L (35-129) 04/16/22 05:28 C-Reactive Protein 0.30 mg/dL (0.00-1.30) 04/15/22 10:49 Total Protein 5.7 g/dL (6.3-8.2) L 04/16/22 05:28 Albumin 3.8 g/dL (3.9-5) L 04/16/22 05:28 Albumin/Globulin Ratio 2.0 % 04/16/22 05:28 SARS-CoV-2 (PCR) Positive (Negative) A 04/13/22 09:20 Kaufman/IV: Voiding Method Condom Catheter Active Medications - Current Medications Current Medications: Generic Name Dose Route Start Last Admin Trade Name Freq PRN Reason Stop Dose Admin Acetaminophen 650 mg 04/06/22 15:59 Acetaminophen 325 Mg Tab PO Q4H PRN Pain MILD(1-3)/Fever >100.5/MCKENZIE Albuterol 2.5 mg 04/06/22 15:59 Albuterol 2.5 Mg/3 Ml Nebu IH Q4HRT PRN Shortness Of Breath Lipase/Protease/Amylase 1 each 04/15/22 16:02 Lipase 10,500/Protease 25,000/Amylase 43,750 (Units) Dr Barrios FEEDTUBE PRN PRN For Clogged Feeding Tube Aspirin 81 mg 04/07/22 10:00 04/16/22 09:39 Aspirin Ec 81 Mg Tab PO 81 mg QDAY GALINA Administration Cholecalciferol 1,000 unit 04/07/22 10:00 04/16/22 09:39 Cholecalciferol (Vit D3) 1000 Unit (25 Mcg) Tab PO 1,000 unit QDAY GALINA Administration Fluticasone Propionate 50 mcg 04/07/22 10:00 04/16/22 09:38 Fluticasone Propionate Nasal [place] 16 Gm NS 50 mcg QDAY GALINA Administration Heparin Sodium (Porcine) 5,000 unit 04/06/22 22:00 04/16/22 21:46 Heparin 5,000 Unit/1 Ml Vial SUB-Q 5,000 unit Q12HR GALINA Administration Hydromorphone HCl 0.5 mg 04/06/22 15:59 04/12/22 19:53 Hydromorphone 0.5 Mg/0.5 Ml Inj IV 0.5 mg Q23H PRN Administration Pain , Severe (7-10) Sodium Chloride 1,000 mls @ 50 mls/hr 04/12/22 15:00 04/15/22 17:14 Nacl 0.45% 1000 Ml IV 50 mls/hr DIRECT GALINA Administration Lorazepam 0.5 mg 04/08/22 15:00 04/16/22 21:46 Lorazepam 2 Mg/Ml Vial IV 0.5 mg Q23H PRN Administration Agitation Melatonin 5 mg 04/07/22 11:21 04/11/22 23:27 Melatonin 5 Mg Tab PO 5 mg QHS PRN Administration Sleep Mirtazapine 15 mg 04/11/22 22:00 04/16/22 21:46 Mirtazapine 15 Mg Tab PO 15 mg QHS GALINA Administration Ondansetron HCl 4 mg 04/06/22 15:59 Ondansetron 4 Mg/2 Ml Inj IV Q8H PRN Nausea And Vomiting Oxycodone/Acetaminophen 1 tab 04/06/22 15:59 04/13/22 22:21 Oxycodone /Acetaminophen 5-325mg Tab PO 1 tab Q16H PRN Administration Pain, Moderate (4-6) Simple Syrup 15 ml 04/15/22 16:02 Simple Syrup 15 Ml FEEDTUBE PRN PRN Hypoglycemia Simple Syrup 30 ml 04/15/22 16:02 Simple Syrup 15 Ml FEEDTUBE PRN PRN Hypoglycemia Sodium Bicarbonate 325 mg 04/15/22 16:02 Sodium Bicarbonate 325 Mg Tab FEEDTUBE PRN PRN For Clogged Feeding Tube Sodium Chloride 10 ml 04/06/22 22:00 04/16/22 21:46 Sodium Chloride 0.9% 10 Ml Flush Syringe IV 10 ml BID GALINA Administration Sodium Chloride 10 ml 04/06/22 15:59 Sodium Chloride 0.9% 10 Ml Flush Syringe IV PRN PRN LINE FLUSH Tiotropium [place] 1 puff 04/07/22 10:00 04/16/22 09:00 Tiotropium 18 Mcg Cap Inhalation IH 1 puff QDAY GALINA Administration Valproic Acid 125 mg 04/15/22 15:30 04/16/22 09:38 Valproic Acid 250 Mg/5 Ml Oral Liqd PO 125 mg DAILY GALINA Administration Nutrition/Malnutrition Assess - Dietary Evaluation Nutrition/Malnutrition Findings: Nutrition Notes Start: 04/07/22 15:47 Freq: Status: Active Protocol: Document 04/15/22 16:40 FARIBA (Rec: 04/15/22 17:03 FARIBA [id number]) Nutrition Notes Initial or Follow up Brief Note Current Diagnosis Diabetes,Hypertension, Malnutrition Other Pertinent Diagnosis COVID-19, Debility, Dehydration, Metabolic Encephalopathy, Dementia ... Current Diet TF-Glucerna 1.2 Joss @ 45 ml/hr (from B 04/16). Height 5 ft 2 in Weight 42.9 kg [place] Body Weight (kg) 53.63 BMI 17.3 Weight Status Underweight Subjective/Other Information RD consult for write/mange TF. I will prescribe and order TF to provide Pt with at least 75 % of energy/protein needs. Percent of energy/protein needs met: Prescribed TF-Glucerna 1.2 Joss @ 45 ml/hr provides for energy/protein needs (1,285 Kcal/64 g) during LOS, 100% Kcal; 100% AA. #1 Nutrition Diagnosis Inadequate oral intake Comments: Change Nutrition Diagnosis. RD consult for write/mange TF. Etiology Dementia with behavioral disturbance. As Evidenced by Signs and Symptoms Pt's PO intake of meals has been Negligible (0%), according to ADL notes. Diagnosis Progress(for reassessment Improved documentation) Is patient on ventilator? No Is Patient Ambulatory and/or Out of Bed Yes REE-([place]-St. Jeor-ambulatory/OOB) [ 1362.725 NUTR.MSJOOB] Kcal/Kg value to use for calculation 30 Approximate Energy Requirements Using 1287 kcal/Kg Calculation Used for Recommendations Kcal/kg Additional Notes Protein: 1-1.2 g/Kg IBW; 54-65 g/day. Fluids: 1 ml/Kcal, or as per MD. Nutrition Intervention Change Diet Order: Discontinue. Nutrition Support: Start TF-Glucerna 1.2 Joss @ 45 ml/hr. Flush: 70 ml water Q 4 hr, or as per MD. Kcal 1,285 Protein (gm) 64 Carbohydrates (gm) 123 Fat (gm) 64 Fluid (mL) 862 Fiber (gm) 17 % RDI: 100% Kcal; 100% AA. Goal #1 Provide at least 75% of energy /protein needs through Enteral Feeding during LOS. Goal #2 Adjust the dietary intervention to better serve Pt's needs and clinical conditions during LOS. Follow-Up By: 04/18/22 Additional Comments Start monitoring TF tolerance and BM.
[2022-04-17] MEDS: VALPROIC ACID 250 MG/5 ML ORAL LIQD PO SCH (09:05)
[2022-04-17] MEDS: FLUTICASONE PROPIONATE NASAL SPRAY 16 GM NS SCH (09:05)
[2022-04-17] MEDS: ASPIRIN EC 81 MG TAB PO SCH (09:06)
[2022-04-17] MEDS: CHOLECALCIFEROL (VIT D3) 1000 UNIT (25 mcg) TAB PO SCH (09:06)
[2022-04-17] MEDS: HEPARIN 5,000 UNIT/1 ML VIAL SUB-Q SCH ×2 (09:06→21:53)
[2022-04-17] MEDS: SODIUM CHLORIDE 0.45% 1000 ML 1,000 ML IV SCH ×2 (09:11→22:24)
[2022-04-17] MEDS: TIOTROPIUM 18 MCG CAP INHALATION IH SCH ×2 (10:15→10:27)
--- NOTE | 2022-04-17 11:29 | Progress Note ---
Subjective - Reason for Consult Consult date: 04/17/22 Reason for consult: agitation - Chief Complaint Chief complaint: The patient was seen today. He is in 4 point restraints. He is sleeping. He does arouse slightly when I call his name. The nurse caring for the patient states that he has been combative and agitated. He says "if you get close, he snaps." Will adjust medications REVIEW OF SYSTEMS Unable to assess MENTAL STATUS EXAMINATION Unable to assess Diagnoses: Dementia with behavioral disturbances Treatment Plan: Change Valproic to 500mg IV q12h Medical: Per primary Sitter: Defer to primary Disposition: Do not recommend inpatient psych treatment at this time. This may change once the patient is medically clear. Will follow for psych progress and med management Thank you Case staffed with Dr. Hebert Mental Status Exam - Vital signs Last Vital Signs Temp 97.3 F L 04/17/22 10:45 Pulse 85 04/17/22 10:45 Resp 18 04/17/22 10:45 BP 174/79 04/17/22 10:45 Pulse Ox 97 04/17/22 10:45
[2022-04-17] MEDS: VALPROATE SODIUM 500 MG in SODIUM CHLORIDE 0.9% 100 ML IV SCH (21:55)
[2022-04-17] MEDS: MIRTAZAPINE 15 MG TAB PO SCH (21:55)
--- NOTE | 2022-04-18 08:38 | Progress Note ---
Assessment and Plan Assessment and plan: 76 YO Male HD #5 with Vascular Dementia with Behavioral disturbance, Cerebral Atherosclerosis, DM, BPH, HTN, Malnutrition, Coronavirus Infection. Patient remains confused, lethargic with diminished cognition. Patient remains at baseline level of cognition and function. Hospice team consulted. Case alexandre castro consulted. Discharge planning to prison facility with hosp[facility] care. And is COVID-19 positive x2 on isolation ID following -- COVID-19 positive 03/31/2022 and 04/13/2022 coronavirus infection Coronavirus protocol: IV antibiotic therapy, atorvastatin therapy as clinically indicated, vitamin C therapy, vitamin D therapy, zinc therapy, supplemental oxygen, pulse oximetry, prophylactic anticoagulation. Patient saturating well on room air Inflammatory markers, ID consult --Vascular dementia with behavioral disturbance Verbal prompting, verbal redirection, benzodiazepine therapy as clinically indicated. --Cerebral atherosclerosis Risk factor reduction, antiplatelet therapy, supportive care. --General debility Bed alarm, fall precautions, supportive care. Physical therapy occupational therapy -- Mild to moderate malnutrition Increase protein intake, dietary supplementation when awake and alert only. Aspiration precautions. --Nicotine dependence Smoking cessation counseled, supportive care, behavior change counseled, pulse 50 minutes. --Volume depletion/dehydration IV fluids and supportive care, increase oral fluids --Metabolic encephalopathy Multifactorial , underlying dementia , malnutrition , advanced age COVID-19 infection , psych problems Treat underlying cause and supportive care --DVT prophylaxis SCD to bilateral extremities while in bed, prophylactic anticoagulation --Advance care planning Disease education done, care plan discussed, diagnoses discussed, prognosis discussed, patient is full code at this time. Discussed patient care with Quynhheather Britt, . The plan is to make patient DNR and plan for discharge to prison facility with hospice care. Awaiting arrival of Ms. Britt to the hospital tomorrow for family conference. +30 minutes. --Preventive health care Counseled regarding patient diagnosis and patient prognosis. Home safety precautions. Patient to follow-up with primary care physician as outpatient for all age and risk factor appropriate screening test. +30 minutes. Please closely monitor the patient and adjust the management as needed Plan of care reviewed with the patient's nurse DC planning per case management Brief history and daily hospital course 76 YO Male HD #5 with Vascular Dementia with Behavioral disturbance, Cerebral Atherosclerosis, DM, BPH, HTN, Malnutrition, Coronavirus Infection. Patient remains confused, lethargic with diminished cognition. Patient remains at baseline level of cognition and function. Hospice team consulted. Case management consulted. COVID-19 positive x2 discharge planning to prison facility with hospice care. 04/13/2022; patient is lethargic sleepy, restraint for safety Continue current management, psych evaluation noted and appreciated 04/14/2022; patient is more alert today trying to pull , agitated On restraints, refusing to eat, consider Dobbhoff placement for tube feeding if needed 04/15/2022; COVID-19 positive[ 03/31 and 04/13] Check inflammatory markers, ID consulted Patient is refusing medications and diet Confused and agitated, Dobbhoff placement and tube feeding per protocol 04/16/2022; patient is more alert and awake Tolerating liquids, will advance the diet as tolerated Check physical therapy occupational therapy evaluation and recommendations DC planning per case management 04/17/2022; patient is on pured diet, Will advance the diet as tolerated 04/18/2022; recommend hospice, try to call next of kin the daughter many times Unable to reach, hospice consult inpatient versus home hospice versus SNF with hospice Disposition; continue current management, DC planning per case management and family History Interval history: I have seen and examined the patient at the bedside, patient's chart and medications reviewed No new events reported by the nursing staff, Patient is sometimes agitated requiring restraints Vital signs noted Hospitalist Physical - Constitutional Vitals: Temp Pulse Resp BP Pulse Ox 98.3 F 81 16 177/83 98 04/17/22 21:07 04/17/22 21:07 04/17/22 21:07 04/17/22 21:07 04/17/22 21:07 General appearance: Present: no acute distress, cachectic, other (Agitated ,restrained for safety) - EENT Eyes: Present: PERRL, EOM intact - Neck Neck: Present: supple, normal ROM - Respiratory Respiratory effort: normal Respiratory: bilateral: diminished, negative: rales, rhonchi, wheezing - Cardiovascular Rhythm: regular Heart Sounds: Present: S1 & S2 - Extremities Extremities: no ischemia, No edema - Abdominal General gastrointestinal: soft, non-tender, non-distended, normal bowel sounds - Integumentary Integumentary: Present: clear, warm - Psychiatric Psychiatric: agitated, other - Neurologic Neurologic: moves all extremities (Confused) Results - Labs CBC & Chem 7: 04/08/22 07:15 04/16/22 05:28 Labs: Laboratory Last Values WBC 5.4 K/mm3 (4.5-11.0) 04/08/22 07:15 RBC 4.24 M/mm3 (3.65-5.03) 04/08/22 07:15 Hgb 13.6 gm/dl (11.8-15.2) 04/08/22 07:15 Hct 37.3 % (35.5-45.6) 04/08/22 07:15 MCV 88 fl (84-94) 04/08/22 07:15 MCH 32 pg (28-32) 04/08/22 07:15 MCHC 36 % (32-34) H 04/08/22 07:15 RDW 13.3 % (13.2-15.2) 04/08/22 07:15 Plt Count 156 K/mm3 (140-440) 04/08/22 07:15 Lymph % (Auto) 6.3 % (13.4-35.0) L 04/08/22 07:15 [place] % (Auto) 9.8 % (0.0-7.3) H 04/08/22 07:15 Eos % (Auto) 0.0 % (0.0-4.3) 04/08/22 07:15 Baso % (Auto) 0.1 % (0.0-1.8) 04/08/22 07:15 Lymph # (Auto) 0.3 K/mm3 (1.2-5.4) L 04/08/22 07:15 [place] # (Auto) 0.5 K/mm3 (0.0-0.8) 04/08/22 07:15 Eos # (Auto) 0.0 K/mm3 (0.0-0.4) 04/08/22 07:15 Baso # (Auto) 0.0 K/mm3 (0.0-0.1) 04/08/22 07:15 Seg Neutrophils % 83.8 % (40.0-70.0) H 04/08/22 07:15 Seg Neutrophils # 4.6 K/mm3 (1.8-7.7) 04/08/22 07:15 D-Dimer 227.33 ng/mlDDU (0-234) 04/15/22 10:49 Sodium 145 mmol/L (137-145) 04/16/22 05:28 Potassium 3.9 mmol/L (3.6-5.0) 04/16/22 05:28 Chloride 109.2 mmol/L (98-107) H 04/16/22 05:28 Carbon Dioxide 27 mmol/L (22-30) 04/16/22 05:28 Anion Gap 13 mmol/L 04/16/22 05:28 BUN 30 mg/dL (9-20) H 04/16/22 05:28 Creatinine 0.5 mg/dL (0.8-1.3) L 04/16/22 05:28 Estimated GFR > 60 ml/min 04/16/22 05:28 BUN/Creatinine Ratio 60 % 04/16/22 05:28 Glucose 144 mg/dL (75-100) H 04/16/22 05:28 Calcium 8.9 mg/dL (8.4-10.2) 04/16/22 05:28 Magnesium 2.50 mg/dL (1.7-2.3) H 04/12/22 10:45 Ferritin 1248.0 ng/mL (30.0-300.0) H 04/15/22 10:49 Total Bilirubin 0.60 mg/dL (0.1-1.2) 04/16/22 05:28 AST 25 units/L (5-40) 04/16/22 05:28 ALT 54 units/L (7-56) 04/16/22 05:28 Alkaline Phosphatase 92 units/L (35-129) 04/16/22 05:28 C-Reactive Protein 0.30 mg/dL (0.00-1.30) 04/15/22 10:49 Total Protein 5.7 g/dL (6.3-8.2) L 04/16/22 05:28 Albumin 3.8 g/dL (3.9-5) L 04/16/22 05:28 Albumin/Globulin Ratio 2.0 % 04/16/22 05:28 SARS-CoV-2 (PCR) Positive (Negative) A 04/13/22 09:20 [place]/IV: Voiding Method Condom Catheter Active Medications - Current Medications Current Medications: Generic Name Dose Route Start Last Admin Trade Name Freq PRN Reason Stop Dose Admin Acetaminophen 650 mg 04/06/22 15:59 Acetaminophen 325 Mg Tab PO Q4H PRN Pain MILD(1-3)/Fever >100.5/MCKENZIE Albuterol 2.5 mg 04/06/22 15:59 Albuterol 2.5 Mg/3 Ml Nebu IH Q4HRT PRN Shortness Of Breath Lipase/Protease/Amylase 1 each 04/15/22 16:02 Lipase 10,500/Protease 25,000/Amylase 43,750 (Units) Dr Barrios FEEDTUBE PRN PRN For Clogged Feeding Tube Aspirin 81 mg 04/07/22 10:00 04/17/22 09:06 Aspirin Ec 81 Mg Tab PO 81 mg QDAY GALINA Administration Cholecalciferol 1,000 unit 04/07/22 10:00 04/17/22 09:06 Cholecalciferol (Vit D3) 1000 Unit (25 Mcg) Tab PO 1,000 unit QDAY GALINA Administration Fluticasone Propionate 50 mcg 04/07/22 10:00 04/17/22 09:05 Fluticasone Propionate Nasal [place] 16 Gm NS 50 mcg QDAY GALINA Administration Heparin Sodium (Porcine) 5,000 unit 04/06/22 22:00 04/17/22 21:53 Heparin 5,000 Unit/1 Ml Vial SUB-Q 5,000 unit Q12HR GALINA Administration Hydromorphone HCl 0.5 mg 04/06/22 15:59 04/12/22 19:53 Hydromorphone 0.5 Mg/0.5 Ml Inj IV 0.5 mg Q23H PRN Administration Pain , Severe (7-10) Sodium Chloride 1,000 mls @ 50 mls/hr 04/12/22 15:00 04/17/22 22:24 Nacl 0.45% 1000 Ml IV 50 mls/hr DIRECT GALINA Administration Valproate Sodium 500 mg/ 105 mls @ 100 mls/hr 04/17/22 22:00 04/17/22 21:55 Sodium Chloride IV 100 mls/hr Q12HR GALINA Administration Lorazepam 0.5 mg 04/08/22 15:00 04/16/22 21:46 Lorazepam 2 Mg/Ml Vial IV 0.5 mg Q23H PRN Administration Agitation Melatonin 5 mg 04/07/22 11:21 04/11/22 23:27 Melatonin 5 Mg Tab PO 5 mg QHS PRN Administration Sleep Mirtazapine 15 mg 04/11/22 22:00 04/17/22 21:55 Mirtazapine 15 Mg Tab PO 15 mg QHS GALINA Administration Ondansetron HCl 4 mg 04/06/22 15:59 Ondansetron 4 Mg/2 Ml Inj IV Q8H PRN Nausea And Vomiting Oxycodone/Acetaminophen 1 tab 04/06/22 15:59 04/13/22 22:21 Oxycodone /Acetaminophen 5-325mg Tab PO 1 tab Q16H PRN Administration Pain, Moderate (4-6) Simple Syrup 15 ml 04/15/22 16:02 Simple Syrup 15 Ml FEEDTUBE PRN PRN Hypoglycemia Simple Syrup 30 ml 04/15/22 16:02 Simple Syrup 15 Ml FEEDTUBE PRN PRN Hypoglycemia Sodium Bicarbonate 325 mg 04/15/22 16:02 Sodium Bicarbonate 325 Mg Tab FEEDTUBE PRN PRN For Clogged Feeding Tube Sodium Chloride 10 ml 04/06/22 22:00 04/17/22 21:55 Sodium Chloride 0.9% 10 Ml Flush Syringe IV 10 ml BID GALINA Administration Sodium Chloride 10 ml 04/06/22 15:59 Sodium Chloride 0.9% 10 Ml Flush Syringe IV PRN PRN LINE FLUSH Tiotropium [place] 1 puff 04/07/22 10:00 04/17/22 10:27 Tiotropium 18 Mcg Cap Inhalation IH Not Given QDAY GALINA Nutrition/Malnutrition Assess - Dietary Evaluation Nutrition/Malnutrition Findings: Nutrition Notes Start: 04/07/22 15:47 Freq: Status: Active Protocol: Document 04/15/22 16:40 FARIBA (Rec: 04/15/22 17:03 FARIBA [id number]) Nutrition Notes Initial or Follow up Brief Note Current Diagnosis Diabetes,Hypertension, Malnutrition Other Pertinent Diagnosis COVID-19, Debility, Dehydration, Metabolic Encephalopathy, Dementia ... Current Diet TF-Glucerna 1.2 Joss @ 45 ml/hr (from B 04/16). Height 5 ft 2 in Weight 42.9 kg [place] Body Weight (kg) 53.63 BMI 17.3 Weight Status Underweight Subjective/Other Information RD consult for write/mange TF. I will prescribe and order TF to provide Pt with at least 75 % of energy/protein needs. Percent of energy/protein needs met: Prescribed TF-Glucerna 1.2 Joss @ 45 ml/hr provides for energy/protein needs (1,285 Kcal/64 g) during LOS, 100% Kcal; 100% AA. #1 Nutrition Diagnosis Inadequate oral intake Comments: Change Nutrition Diagnosis. RD consult for write/mange TF. Etiology Dementia with behavioral disturbance. As Evidenced by Signs and Symptoms Pt's PO intake of meals has been Negligible (0%), according to ADL notes. Diagnosis Progress(for reassessment Improved documentation) Is patient on ventilator? No Is Patient Ambulatory and/or Out of Bed Yes REE-(Bowman-St. Jeor-ambulatory/OOB) [ 1362.725 NUTR.MSJOOB] Kcal/Kg value to use for calculation 30 Approximate Energy Requirements Using 1287 kcal/Kg Calculation Used for Recommendations Kcal/kg Additional Notes Protein: 1-1.2 g/Kg IBW; 54-65 g/day. Fluids: 1 ml/Kcal, or as per MD. Nutrition Intervention Change Diet Order: Discontinue. Nutrition Support: Start TF-Glucerna 1.2 Joss @ 45 ml/hr. Flush: 70 ml water Q 4 hr, or as per MD. Kcal 1,285 Protein (gm) 64 Carbohydrates (gm) 123 Fat (gm) 64 Fluid (mL) 862 Fiber (gm) 17 % RDI: 100% Kcal; 100% AA. Goal #1 Provide at least 75% of energy /protein needs through Enteral Feeding during LOS. Goal #2 Adjust the dietary intervention to better serve Pt's needs and clinical conditions during LOS. Follow-Up By: 04/18/22 Additional Comments Start monitoring TF tolerance and BM.
[2022-04-18] MEDS: TIOTROPIUM 18 MCG CAP INHALATION IH SCH (09:00)
[2022-04-18 10:46] LABS: C-Reactive Protein 1.1 mg/dL (0.00-1.30)
--- NOTE | 2022-04-18 12:17 | Progress Note ---
Subjective - Reason for Consult Consult date: 04/18/22 Reason for consult: agitation, combativeness - Chief Complaint Chief complaint: The patient was seen today. He has a history of vascular Dementia with Behavioral disturbance, Cerebral Atherosclerosis, DM, BPH, HTN, Malnutrition, Coronavirus Infection. He is still in restraints. He is somnolent and unable to engage in the evaluation. Will continue to follow this patient for med management, but no acute psych inpatient recommended, as it is my professional opinion that this patient would not benefit from psychiatric services, but would better benefit from a snf facility. Will adjust medications REVIEW OF SYSTEMS Unable to assess MENTAL STATUS EXAMINATION Unable to assess Diagnoses: Dementia with behavioral disturbances Treatment Plan: No medication changes at this time. Medical: Per primary Sitter: Defer to primary Disposition: Do not recommend inpatient psych treatment at this time. Will follow for psych progress and med management Thank you Case staffed with Dr. Hebert Mental Status Exam - Vital signs Last Vital Signs Temp 98.3 F 04/17/22 21:07 Pulse 80 04/18/22 08:55 Resp 18 04/18/22 08:55 BP 177/83 04/17/22 21:07 Pulse Ox 98 04/17/22 21:07
[2022-04-18] MEDS: FLUTICASONE PROPIONATE NASAL SPRAY 16 GM NS SCH (12:48)
[2022-04-18] MEDS: CHOLECALCIFEROL (VIT D3) 1000 UNIT (25 mcg) TAB PO SCH (12:49)
[2022-04-18] MEDS: ASPIRIN EC 81 MG TAB PO SCH (12:49)
[2022-04-18] MEDS: HEPARIN 5,000 UNIT/1 ML VIAL SUB-Q SCH ×2 (12:50→22:24)
[2022-04-18] MEDS: VALPROATE SODIUM 500 MG in SODIUM CHLORIDE 0.9% 100 ML IV SCH ×2 (12:51→22:24)
--- NOTE | 2022-04-18 13:52 | Progress Note ---
Assessment and Plan Cultures: COVID positive #Severe COVID-19 pneumonia: Patient presented with a week of symptoms, chest x- ray with diffuse bilateral infiltrates, admission O2 sats decreasedon room air. Inflammatory markers elevated #Acute hypoxemic respiratory failure: Likely secondary to COVID-19 infection. Currently on room air. #Vascular dementia: unable to obtain history from the patient #DM2: tight glycemic control for best outcomes. Recommendations: -Steroids for 10 days as patient has been hypoxic. -If patient requires supplemntal O2 can give Remdesivir 200 mg IV q day x 1 followed by 100 mg IV q day x 4 days -Obtain q48-72h inflammatory markers - ferritin, Ddimer, CRP, LDH -No need for empiric antibiotics -Anticoagulation per hospital protocol -Proning as able Thank you for the consult, we will sign off. Please call with questions. Sander Arias MD [facility] O: [phone] F: [phone] Subjective Date of service: 04/18/22 Interval history: Afebrile, normal white count. No acute change. Remains on room air. Objective - Exam Narrative Exam: Physical exam deferred to reduce risk of transmission of COVID-19. Please refer to primary team's note. - Constitutional Vitals: Vital Signs Temp Pulse Resp BP Pulse Ox 97.5 F L 76 16 119/63 100 04/18/22 13:10 04/18/22 13:10 04/18/22 13:10 04/18/22 13:10 04/18/22 13:10 Temperature -Last 24 Hours Temperature 97.5 F Temperature 98.3 F Temperature 98.0 F - Labs CBC & Chem 7: 04/08/22 07:15 04/16/22 05:28 Labs: Abnormal lab results 04/18/22 04/18/22 04/18/22 Range/Units 09:00 09:00 09:00 D-Dimer 376.26 H (0-234) ng/mlDDU Ferritin 1407.0 H (30.0-300.0) ng/mL Lactate Dehydrogenase 229 H (91-180) units/L
[2022-04-18] MEDS: SODIUM CHLORIDE 0.45% 1000 ML 1,000 ML IV SCH (18:18)
[2022-04-18] MEDS: MIRTAZAPINE 15 MG TAB PO SCH (22:24)
[2022-04-19] MEDS: ASPIRIN EC 81 MG TAB PO SCH (09:54)
[2022-04-19] MEDS: VALPROATE SODIUM 500 MG in SODIUM CHLORIDE 0.9% 100 ML IV SCH (09:54)
[2022-04-19] MEDS: HEPARIN 5,000 UNIT/1 ML VIAL SUB-Q SCH ×2 (09:54→21:45)
[2022-04-19] MEDS: CHOLECALCIFEROL (VIT D3) 1000 UNIT (25 mcg) TAB PO SCH (09:54)
[2022-04-19] MEDS: FLUTICASONE PROPIONATE NASAL SPRAY 16 GM NS SCH (09:55)
[2022-04-19] MEDS: TIOTROPIUM 18 MCG CAP INHALATION IH SCH (10:39)
--- NOTE | 2022-04-19 14:32 | Progress Note ---
Subjective - Reason for Consult Consult date: 04/19/22 Reason for consult: agitation - Chief Complaint Chief complaint: The patient was seen today. He is in four point restraints. He's laying quietly. He doesn't respond when I call his name. No inpatient psychiatric treatment indicated. The patient would better benefit from a prison facility. Will adjust medications REVIEW OF SYSTEMS Unable to assess MENTAL STATUS EXAMINATION Unable to assess Diagnoses: Dementia with behavioral disturbances Treatment Plan: Continue valproc acid 500mg BID Continue Remeron 15mg po qhs Medical: Per primary Sitter: Defer to primary Disposition: Do not recommend inpatient psych treatment at this time. Will follow for psych progress and med management Thank you Case staffed with Dr. Hebert Mental Status Exam - Vital signs Last Vital Signs Temp 98.0 F 04/19/22 12:28 Pulse 78 04/19/22 12:28 Resp 18 04/19/22 12:28 BP 168/56 04/19/22 12:28 Pulse Ox 97 04/19/22 12:28
--- NOTE | 2022-04-19 15:01 | Progress Note ---
Assessment and Plan Brief history and daily hospital course 76 YO Male PMH with Vascular Dementia with Behavioral disturbance, Cerebral Atherosclerosis, DM, BPH, HTN, Malnutrition, Coronavirus Infection. Patient remains confused, lethargic with diminished cognition. Patient remains at baseline level of cognition and function. Hospice team consulted. Case management consulted. COVID-19 positive x2 discharge planning to care home facility with hospice care. 04/13/2022; patient is lethargic sleepy, restraint for safety Continue current management, psych evaluation noted and appreciated 04/14/2022; patient is more alert today trying to pull , agitated On restraints, refusing to eat, consider Dobbhoff placement for tube feeding if needed 04/15/2022; COVID-19 positive[ 03/31 and 04/13] Check inflammatory markers, ID consulted Patient is refusing medications and diet Confused and agitated, Dobbhoff placement and tube feeding per protocol 04/16/2022; patient is more alert and awake Tolerating liquids, will advance the diet as tolerated Check physical therapy occupational therapy evaluation and recommendations DC planning per case management 04/17/2022; patient is on pured diet, Will advance the diet as tolerated 04/18/2022; recommend hospice, try to call next of kin the daughter many times Unable to reach, hospice consult inpatient versus home hospice versus SNF with hospice 04/19: Patient remains on restraint and confused. He is on 2 L nasal cannula O2. We will start on dexamethasone for 10 days. We will also Low-dose of Seroquel for agitation and anxiety. Continue to follow clinically, waiting on SNF placement Assessment and plan: -- COVID-19 positive 03/31/2022 and 04/13/2022 coronavirus infection Coronavirus protocol: IV antibiotic therapy, atorvastatin therapy as clinically indicated, vitamin C therapy, vitamin D therapy, zinc therapy, supplemental oxygen, pulse oximetry, prophylactic anticoagulation. Patient today on 2 L supplemental O2, started Follow-up inflammatory markers, ID consult --Vascular dementia with behavioral disturbance Verbal prompting, verbal redirection, benzodiazepine therapy as clinically indicated. --Cerebral atherosclerosis Risk factor reduction, antiplatelet therapy, supportive care. --General debility Bed alarm, fall precautions, supportive care. Physical therapy occupational therapy -- Mild to moderate malnutrition Increase protein intake, dietary supplementation when awake and alert only. Aspiration precautions. --Nicotine dependence Smoking cessation counseled, supportive care, behavior change counseled, pulse 50 minutes. --Volume depletion/dehydration IV fluids and supportive care, increase oral fluids --Metabolic encephalopathy Multifactorial , underlying dementia , malnutrition , advanced age COVID-19 infection , psych problems Treat underlying cause and supportive care --DVT prophylaxis SCD to bilateral extremities while in bed, prophylactic anticoagulation --Advance care planning patient is full code at this time. Discussed patient care with Quynh Britt, . The plan is to make patient DNR and plan for discharge to care home facility with hospice care. Awaiting arrival of Ms. Britt to the [facility] for family conference. +30 minutes. Please closely monitor the patient and adjust the management as needed Plan of care reviewed with the patient's nurse DC planning per case management Disposition; continue current management, DC planning per case management and family Subjective Date of service: 04/19/22 Interval history: Patient seen and examined Discussed plan of care with nursing staff and home health care case manager No new events reported by the nursing staff, Patient is sometimes agitated requiring restraints Vital signs noted Pending placement to SNF Objective - Exam Narrative Exam: General appearance: Present: no acute distress, cachectic, other (Agitated , restrained for safety) - EENT Eyes: Present: PERRL, EOM intact - Neck Neck: Present: supple, normal ROM - Respiratory Respiratory effort: normal Respiratory: bilateral: diminished, negative: rales, rhonchi, wheezing - Cardiovascular Rhythm: regular Heart Sounds: Present: S1 & S2 - Extremities Extremities: no ischemia, No edema - Abdominal General gastrointestinal: soft, non-tender, non-distended, normal bowel sounds - Integumentary Integumentary: Present: clear, warm - Psychiatric Psychiatric: agitated, other - Neurologic Neurologic: moves all extremities (Confused) - Constitutional Vitals: Vital Signs - 12hr 04/19/22 04/19/22 04/19/22 07:00 08:26 10:18 Temperature 98.3 F Pulse Rate 58 L Respiratory 16 Rate Blood Pressure Blood Pressure 126/67 [Right] O2 Sat by Pulse 94 98 98 Oximetry 04/19/22 12:28 Temperature 98.0 F Pulse Rate 78 Respiratory 18 Rate Blood Pressure 168/56 Blood Pressure [Right] O2 Sat by Pulse 97 Oximetry - Labs CBC & Chem 7: 04/08/22 07:15 04/16/22 05:28
[2022-04-19] MEDS: DEXAMETHASONE 2 MG TAB PO SCH (15:26)
[2022-04-19] MEDS: SODIUM CHLORIDE 0.45% 1000 ML 1,000 ML IV SCH (15:26)
[2022-04-19] MEDS: LORazepam 2 MG/ML VIAL IV PRN (21:44)
[2022-04-19] MEDS: MIRTAZAPINE 15 MG TAB PO SCH (21:45)
[2022-04-19] MEDS: QUEtiapine 25 MG TAB PO SCH (21:45)
[2022-04-19] MEDS: VALPROIC ACID 250 MG/5 ML ORAL LIQD PO SCH (21:50)
[2022-04-20 08:10] LABS: Blood Urea Nitrogen 19 mg/dL (9-20); Calcium 8.9 mg/dL (8.4-10.2); Hemolysis Index 8
[2022-04-20 08:11] LABS: BUN/Creatinine Ratio 48
[2022-04-20] MEDS: TIOTROPIUM 18 MCG CAP INHALATION IH SCH (10:40)
[2022-04-20] MEDS: DEXAMETHASONE 2 MG TAB PO SCH (11:01)
[2022-04-20] MEDS: FLUTICASONE PROPIONATE NASAL SPRAY 16 GM NS SCH (11:01)
[2022-04-20] MEDS: VALPROIC ACID 250 MG/5 ML ORAL LIQD PO SCH ×2 (11:01→22:43)
[2022-04-20] MEDS: QUEtiapine 25 MG TAB PO SCH ×2 (11:02→22:43)
[2022-04-20] MEDS: ASPIRIN EC 81 MG TAB PO SCH (11:02)
[2022-04-20] MEDS: HEPARIN 5,000 UNIT/1 ML VIAL SUB-Q SCH ×2 (11:02→22:43)
[2022-04-20] MEDS: CHOLECALCIFEROL (VIT D3) 1000 UNIT (25 mcg) TAB PO SCH (11:03)
[2022-04-20] MEDS: SODIUM CHLORIDE 0.45% 1000 ML 1,000 ML IV SCH (11:05)
--- NOTE | 2022-04-20 14:38 | Progress Note ---
Subjective - Reason for Consult Consult date: 04/20/22 Reason for consult: agitation - Chief Complaint Chief complaint: The patient was seen today. He is in restraints. He no longer has the restraints on his lower extremities. He is sleeping. He doesn't respond when I call his name. No inpatient psychiatric treatment indicated. The patient would better benefit from a senior living facility. Will adjust medications REVIEW OF SYSTEMS Unable to assess MENTAL STATUS EXAMINATION Unable to assess Diagnoses: Dementia with behavioral disturbances Treatment Plan: valproc acid 500mg BID Remeron 15mg po qhs Agree with Seroquel 25mg po BID Medical: Per primary Sitter: Defer to primary Disposition: Do not recommend inpatient psych treatment at this time. Will follow for psych progress and med management Thank you Case staffed with Dr. Hebert Mental Status Exam - Vital signs Last Vital Signs Temp 97.4 F L 04/20/22 10:25 Pulse 81 04/20/22 10:25 Resp 18 04/20/22 10:25 BP 161/86 04/20/22 10:25 Pulse Ox 97 04/20/22 10:25
--- NOTE | 2022-04-20 16:23 | Progress Note ---
Assessment and Plan Brief history and daily hospital course 76 YO Male PMH with Vascular Dementia with Behavioral disturbance, Cerebral Atherosclerosis, DM, BPH, HTN, Malnutrition, Coronavirus Infection. Patient remains confused, lethargic with diminished cognition. Patient remains at baseline level of cognition and function. Hospice team consulted. Case management consulted. COVID-19 positive x2 discharge planning to residential facility with hospice care. 04/13/2022; patient is lethargic sleepy, restraint for safety Continue current management, psych evaluation noted and appreciated 04/14/2022; patient is more alert today trying to pull , agitated On restraints, refusing to eat, consider Dobbhoff placement for tube feeding if needed 04/15/2022; COVID-19 positive[ 03/31 and 04/13] Check inflammatory markers, ID consulted Patient is refusing medications and diet Confused and agitated, Dobbhoff placement and tube feeding per protocol 04/16/2022; patient is more alert and awake Tolerating liquids, will advance the diet as tolerated Check physical therapy occupational therapy evaluation and recommendations DC planning per case management 04/17/2022; patient is on pured diet, Will advance the diet as tolerated 04/18/2022; recommend hospice, try to call next of kin the daughter many times Unable to reach, hospice consult inpatient versus home hospice versus SNF with hospice 04/19: Patient remains on restraint and confused. He is on 2 L nasal cannula O2. We will start on dexamethasone for 10 days. We will also Low-dose of Seroquel for agitation and anxiety. Continue to follow clinically, waiting on SNF placement 04/20: Cont seroquel, restraint as needed. follow clinically. still positive for Covid, cont dexamethasone, pending placement. No family info in the file. Assessment and plan: -- COVID-19 positive 03/31/2022 and 04/13/2022 coronavirus infection Coronavirus protocol: IV antibiotic therapy, atorvastatin therapy as clinically indicated, vitamin C therapy, vitamin D therapy, zinc therapy, supplemental oxygen, pulse oximetry, prophylactic anticoagulation. Patient today on 2 L supplemental O2, started Follow-up inflammatory markers, ID consult --Vascular dementia with behavioral disturbance Verbal prompting, verbal redirection, benzodiazepine therapy as clinically indicated. --Cerebral atherosclerosis Risk factor reduction, antiplatelet therapy, supportive care. --General debility Bed alarm, fall precautions, supportive care. Physical therapy occupational therapy -- Mild to moderate malnutrition Increase protein intake, dietary supplementation when awake and alert only. Aspiration precautions. --Nicotine dependence Smoking cessation counseled, supportive care, behavior change counseled, pulse 50 minutes. --Volume depletion/dehydration IV fluids and supportive care, increase oral fluids --Metabolic encephalopathy Multifactorial , underlying dementia , malnutrition , advanced age COVID-19 infection , psych problems Treat underlying cause and supportive care --DVT prophylaxis SCD to bilateral extremities while in bed, prophylactic anticoagulation --Advance care planning patient is full code at this time. Discussed patient care with Quynh Britt, . The plan is to make patient DNR and plan for discharge to residential facility with hospice care. Awaiting arrival of Ms. Britt to the hospital for family conference. +30 minutes. Please closely monitor the patient and adjust the management as needed Plan of care reviewed with the patient's nurse DC planning per case management Disposition; continue current management, DC planning per case management and family Subjective Date of service: 04/20/22 Interval history: Patient seen and examined Discussed plan of care with nursing staff and binder caser No new events reported by the nursing staff, Patient is sometimes agitated requiring restraints Vital signs noted Pending placement to SNF Objective - Exam Narrative Exam: General appearance: Present: no acute distress, cachectic, other (restrained for safety) - EENT Eyes: Present: PERRL, EOM intact - Neck Neck: Present: supple, normal ROM - Respiratory Respiratory effort: normal Respiratory: bilateral: diminished, negative: rales, rhonchi, wheezing - Cardiovascular Rhythm: regular Heart Sounds: Present: S1 & S2 - Extremities Extremities: no ischemia, No edema - Abdominal General gastrointestinal: soft, non-tender, non-distended, normal bowel sounds - Integumentary Integumentary: Present: clear, warm - Psychiatric Psychiatric: agitated, other - Neurologic Neurologic: moves all extremities (Confused) - Constitutional Vitals: Vital Signs - 12hr 04/20/22 04/20/22 04/20/22 04:54 08:08 10:00 Temperature 97.9 F Pulse Rate 82 Respiratory 18 Rate Blood Pressure 138/80 O2 Sat by Pulse 98 98 98 Oximetry 04/20/22 10:25 Temperature 97.4 F L Pulse Rate 81 Respiratory 18 Rate Blood Pressure 161/86 O2 Sat by Pulse 97 Oximetry - Labs CBC & Chem 7: 04/08/22 07:15 04/20/22 06:52 Labs: Abnormal lab results 04/20/22 04/20/22 Range/Units 06:52 14:25 Creatinine 0.4 L (0.8-1.3) mg/dL Glucose 72 L (75-100) mg/dL SARS-CoV-2 (PCR) Positive A (Negative)
[2022-04-20] MEDS: MIRTAZAPINE 15 MG TAB PO SCH (22:43)
[2022-04-21] MEDS: SODIUM CHLORIDE 0.45% 1000 ML 1,000 ML IV SCH (05:56)
[2022-04-21] MEDS: TIOTROPIUM 18 MCG CAP INHALATION IH SCH (09:15)
[2022-04-21] MEDS: CHOLECALCIFEROL (VIT D3) 1000 UNIT (25 mcg) TAB PO SCH (10:33)
[2022-04-21] MEDS: ASPIRIN EC 81 MG TAB PO SCH (10:33)
[2022-04-21] MEDS: QUEtiapine 25 MG TAB PO SCH ×3 (10:33→20:58)
[2022-04-21] MEDS: HEPARIN 5,000 UNIT/1 ML VIAL SUB-Q SCH ×2 (10:33→22:12)
[2022-04-21] MEDS: DEXAMETHASONE 2 MG TAB PO SCH (10:33)
[2022-04-21] MEDS: FLUTICASONE PROPIONATE NASAL SPRAY 16 GM NS SCH (10:34)
[2022-04-21] MEDS: VALPROIC ACID 250 MG/5 ML ORAL LIQD PO SCH ×2 (10:52→22:11)
[2022-04-21] MEDS ORDERED: cloNIDine TTS 0.2 MG/24 HR PATCH TD SCH (11:00)
--- NOTE | 2022-04-21 12:09 | Progress Note ---
Subjective - Reason for Consult Consult date: 04/21/22 Reason for consult: agitation - Chief Complaint Chief complaint: The patient was seen today. He is in bilateral wrist restraints. He is confused. He is fidgety and reaching for his legs. He's raising his legs up and about. No inpatient psychiatric treatment indicated. The patient would better benefit from a fpc facility. Will adjust medications REVIEW OF SYSTEMS Unable to assess MENTAL STATUS EXAMINATION Unable to assess Diagnoses: Dementia with behavioral disturbances Treatment Plan: valproc acid 500mg BID Remeron 15mg po qhs Increase Seroquel 25mg po TID Medical: Per primary Sitter: Defer to primary Disposition: Do not recommend inpatient psych treatment at this time. Will follow for psych progress and med management Thank you Case staffed with Dr. Hebert Mental Status Exam - Vital signs Last Vital Signs Temp 97.7 F 04/20/22 21:51 Pulse 105 H 04/20/22 15:54 Resp 16 04/20/22 21:51 BP 165/94 04/20/22 21:51 Pulse Ox 98 04/21/22 08:14
--- NOTE | 2022-04-21 12:34 | Progress Note ---
Assessment and Plan Brief history and daily hospital course 76 YO Male PMH with Vascular Dementia with Behavioral disturbance, Cerebral Atherosclerosis, DM, BPH, HTN, Malnutrition, Coronavirus Infection. Patient remains confused, lethargic with diminished cognition. Patient remains at baseline level of cognition and function. Hospice team consulted. Case management consulted. COVID-19 positive x2 discharge planning to intermediate facility with hospice care. 04/13/2022; patient is lethargic sleepy, restraint for safety Continue current management, psych evaluation noted and appreciated 04/14/2022; patient is more alert today trying to pull , agitated On restraints, refusing to eat, consider Dobbhoff placement for tube feeding if needed 04/15/2022; COVID-19 positive[ 03/31 and 04/13] Check inflammatory markers, ID consulted Patient is refusing medications and diet Confused and agitated, Dobbhoff placement and tube feeding per protocol 04/16/2022; patient is more alert and awake Tolerating liquids, will advance the diet as tolerated Check physical therapy occupational therapy evaluation and recommendations DC planning per case management 04/17/2022; patient is on pured diet, Will advance the diet as tolerated 04/18/2022; recommend hospice, try to call next of kin the daughter many times Unable to reach, hospice consult inpatient versus home hospice versus SNF with hospice 04/19: Patient remains on restraint and confused. He is on 2 L nasal cannula O2. We will start on dexamethasone for 10 days. We will also Low-dose of Seroquel for agitation and anxiety. Continue to follow clinically, waiting on SNF placement 04/20: Cont seroquel, restraint as needed. follow clinically. still positive for Covid, cont dexamethasone, pending placement. No family info in the file. 04/21: remains restraint, patient o RA today, does not follow commend, added clonidine path for HTN, stopped iv fluid.follow clinically. Assessment and plan: -- COVID-19 positive 03/31/2022 and 04/13/2022 coronavirus infection Coronavirus protocol: vitamin C therapy, vitamin D therapy, zinc therapy, supplemental oxygen, pulse oximetry, prophylactic anticoagulation. On dexamethasone as intermittently needed O2 Follow-up inflammatory markers, ID consulted: recommended supportive care --HTN, added clonidine patch --Vascular dementia with behavioral disturbance Verbal prompting, verbal redirection, benzodiazepine therapy as clinically indicated. --Cerebral atherosclerosis Risk factor reduction, antiplatelet therapy, supportive care. --General debility Bed alarm, fall precautions, supportive care. Physical therapy occupational therapy -- Mild to moderate malnutrition Increase protein intake, dietary supplementation when awake and alert only. Aspiration precautions. --Nicotine dependence Smoking cessation counseled, supportive care, behavior change counseled, pulse 50 minutes. --Volume depletion/dehydration IV fluids and supportive care, increase oral fluids --Metabolic encephalopathy Multifactorial , underlying dementia , malnutrition , advanced age COVID-19 infection , psych problems Treat underlying cause and supportive care --DVT prophylaxis SCD to bilateral extremities while in bed, prophylactic anticoagulation --Advance care planning patient is full code at this time. Discussed patient care with Quynh Britt, . The plan is to make patient DNR and plan for discharge to intermediate facility with hospice care. Awaiting arrival of Ms. Brtit to the hospital for family conference. According to CM no family has been reported. Please closely monitor the patient and adjust the management as needed Plan of care reviewed with the patient's nurse DC planning per case management Disposition; continue current management, DC planning per case management and family Subjective Date of service: 04/21/22 Interval history: Patient seen and examined Discussed plan of care with nursing staff and case finisher No new events reported by the nursing staff, Patient is sometimes agitated requiring restraints Vital signs noted Pending placement to SNF Objective - Exam Narrative Exam: General appearance: Present: no acute distress, cachectic, other (restrained for safety) - EENT Eyes: Present: PERRL, EOM intact - Neck Neck: Present: supple, normal ROM - Respiratory Respiratory effort: normal Respiratory: bilateral: diminished, negative: rales, rhonchi, wheezing - Cardiovascular Rhythm: regular Heart Sounds: Present: S1 & S2 - Extremities Extremities: no ischemia, No edema - Abdominal General gastrointestinal: soft, non-tender, non-distended, normal bowel sounds - Integumentary Integumentary: Present: clear, warm - Psychiatric Psychiatric: agitated, other - Neurologic Neurologic: moves all extremities (Confused) - Constitutional Vitals: Vital Signs - 12hr 04/21/22 08:14 O2 Sat by Pulse 98 Oximetry - Labs CBC & Chem 7: 04/08/22 07:15 04/20/22 06:52 Labs: Abnormal lab results 04/20/22 Range/Units 14:25 SARS-CoV-2 (PCR) Positive A (Negative)
[2022-04-21] MEDS: MIRTAZAPINE 15 MG TAB PO SCH (22:12)
[2022-04-22] MEDS: LORazepam 2 MG/ML VIAL IV PRN ×2 (04:09→17:19)
[2022-04-22] MEDS: QUEtiapine 25 MG TAB PO SCH ×3 (08:35→20:24)
[2022-04-22] MEDS: TIOTROPIUM 18 MCG CAP INHALATION IH SCH (09:41)
[2022-04-22] MEDS: CHOLECALCIFEROL (VIT D3) 1000 UNIT (25 mcg) TAB PO SCH (12:35)
[2022-04-22] MEDS: FLUTICASONE PROPIONATE NASAL SPRAY 16 GM NS SCH (12:35)
[2022-04-22] MEDS: HEPARIN 5,000 UNIT/1 ML VIAL SUB-Q SCH ×2 (13:33→23:00)
[2022-04-22] MEDS: VALPROIC ACID 250 MG/5 ML ORAL LIQD PO SCH ×2 (14:45→22:59)
[2022-04-22] MEDS: ASPIRIN EC 81 MG TAB PO SCH (15:00)
[2022-04-22] MEDS: DEXAMETHASONE 2 MG TAB PO SCH (15:00)
[2022-04-22] MEDS: hydrALAZINE 20 MG/1 ML INJ IV PRN (17:20)
[2022-04-22] MEDS: MIRTAZAPINE 15 MG TAB PO SCH (22:59)
--- NOTE | 2022-04-22 23:28 | Progress Note ---
Assessment and Plan Assessment and plan: Acute resp failure with Hypoxia -- COVID-19 positive Pneumonia coronavirus infection---positive 04/20/22 also Coronavirus protocol: vitamin C therapy, vitamin D therapy, zinc therapy, supplemental oxygen, pulse oximetry, prophylactic anticoagulation. On dexamethasone as intermittently needed O2 Follow-up inflammatory markers, ID consulted: recommended supportive care --HTN, added clonidine patch --Vascular dementia with behavioral disturbance Verbal prompting, verbal redirection, benzodiazepine therapy as clinically in dicated. --Cerebral atherosclerosis Risk factor reduction, antiplatelet therapy, supportive care. --General debility Bed alarm, fall precautions, supportive care. Physical therapy occupational therapy -- Mild to moderate malnutrition Increase protein intake, dietary supplementation when awake and alert only. Aspiration precautions. --Nicotine dependence Smoking cessation counseled, supportive care, behavior change counseled, pulse 50 minutes. --Volume depletion/dehydration IV fluids and supportive care, increase oral fluids --Metabolic encephalopathy Multifactorial , underlying dementia , malnutrition , advanced age COVID-19 infection , psych problems Treat underlying cause and supportive care --DVT prophylaxis SCD to bilateral extremities while in bed, prophylactic anticoagulation --Advance care planning patient is full code at this time. Discussed patient care with Quynh Britt, . The plan is to make patient DNR and plan [facility]. Awaiting arrival of Ms. Britt to the hospital for family conference. According to CM no family has been reported. Please closely monitor the patient and adjust the management as needed Plan of care reviewed with the patient's nurse DC planning per case management---SNF/Hospice DNR to be signed by Quynh Britt, . Disposition; continue current management, DC planning per case management and family Subjective Date of service: 04/22/22 Principal diagnosis: Acute resp failure with Hypoxia,Covid pneumonia Interval history: Assessment and Plan Brief history and daily hospital course 76 YO Male PMH with Vascular Dementia with Behavioral disturbance, Cerebral Atherosclerosis, DM, BPH, HTN, Malnutrition, Coronavirus Infection. Patient remains confused, lethargic with diminished cognition. Patient remains at baseline level of cognition and function. Hospice team consulted. Case varun sharma consulted. COVID-19 positive x2 [facility] to [facility] with [facility] care. 04/13/2022; patient is lethargic sleepy, restraint for safety Continue current management, psych evaluation noted and appreciated 04/14/2022; patient is more alert today trying to pull , agitated On restraints, refusing to eat, consider Dobbhoff placement for tube feeding if needed 04/15/2022; COVID-19 positive[ 03/31 and 04/13] Check inflammatory markers, ID consulted Patient is refusing medications and diet Confused and agitated, Dobbhoff placement and tube feeding per protocol 04/16/2022; patient is more alert and awake Tolerating liquids, will advance the diet as tolerated Check physical therapy occupational therapy evaluation and recommendations DC planning per case management 04/17/2022; patient is on pured diet, Will advance the diet as tolerated 04/18/2022; recommend hospice, try to call next of kin the daughter many times Unable to reach, hospice consult inpatient versus home hospice versus SNF with hospice 04/19: Patient remains on restraint and confused. He is on 2 L nasal cannula O2. We will start on dexamethasone for 10 days. We will also Low-dose of Seroquel for agitation and anxiety. Continue to follow clinically, waiting on SNF placement 04/20: Cont seroquel, restraint as needed. follow clinically. still positive for Covid, cont dexamethasone, pending placement. No family info in the file. 04/21: remains restraint, patient o RA today, does not follow commend, added clonidine path for HTN, stopped iv fluid.follow clinically. Subjective Date of service: 04/21/22 Interval history: Patient seen and examined Discussed plan of care with nursing staff and manager case No new events reported by the nursing staff, Patient is sometimes agitated requiring restraints Vital signs noted Pending placement to SNF Objective - Constitutional Vitals: Vital Signs - 12hr 04/22/22 15:01 Temperature 97.6 F Pulse Rate 95 H Respiratory 18 Rate Blood Pressure 179/103 [Right] O2 Sat by Pulse 88 Oximetry General appearance: Present: mild distress, well-nourished - EENT Eyes: PERRL, EOM intact ENT: hearing intact, clear oral mucosa Ears: bilateral: normal - Neck Neck: supple, normal ROM - Respiratory Respiratory effort: normal Respiratory: bilateral: CTA, rhonchi, wheezing - Breasts Breasts: normal - Cardiovascular Heart rate: 78 Rhythm: regular Heart Sounds: Present: S1 & S2. Absent: gallop, rub Extremities: pulses intact, No edema, normal color, Full ROM - Gastrointestinal General gastrointestinal: Present: soft, non-tender, non-distended, normal bowel sounds - Genitourinary Male genitourinary: normal - Integumentary Integumentary: clear, warm, dry - Musculoskeletal Musculoskeletal: 1, strength equal bilaterally - Neurologic Neurologic: moves all extremities - Psychiatric Psychiatric: agitated, other (Dementia) - Labs CBC & Chem 7: 04/08/22 07:15 04/20/22 06:52
[2022-04-23 08:01] LABS: Basophils % (Auto) 0.5 % (0.0-1.8); Eosinophils % (Auto) 0.1 % (0.0-4.3); Hemoglobin 13.6 gm/dl (11.8-15.2); Lymphocytes # (Auto) 0.9 K/mm3 (1.2-5.4); Lymphocytes % (Auto) 11.1 % (13.4-35.0); Mean Corpuscular HGB Conc 36 % (32-34); Mean Corpuscular Volume 88 fl (84-94); Monocytes # (Auto) 0.7 K/mm3 (0.0-0.8); Monocytes % (Auto) 8.8 % (0.0-7.3); Platelet Count 127 K/mm3 (140-440); Red Blood Count 4.33 M/mm3 (3.65-5.03); Red Cell Distribution Width 12.9 % (13.2-15.2)
[2022-04-23] MEDS: TIOTROPIUM 18 MCG CAP INHALATION IH SCH (08:10)
[2022-04-23 08:24] LABS: Alanine Aminotransferase 50 units/L (7-56); Albumin 3.3 g/dL (3.9-5); Blood Urea Nitrogen 15 mg/dL (9-20); Calcium 9.1 mg/dL (8.4-10.2); Hemolysis Index 3
[2022-04-23 08:34] LABS: BUN/Creatinine Ratio 25
--- NOTE | 2022-04-23 10:20 | Progress Note ---
Assessment and Plan Assessment and plan: 76 YO Male H with Vascular Dementia with Behavioral disturbance, Cerebral Atherosclerosis, DM, BPH, HTN, Malnutrition, Coronavirus Infection. Patient remains confused, lethargic with diminished cognition. Patient remains at baseline level of cognition and function. Hospice team consulted. Case man agement consulted. COVID-19 positive x2 discharge planning to longterm facility with hospice care. -- COVID-19 positive 03/31/2022 and 04/13/2022 coronavirus infection Coronavirus protocol: vitamin C therapy, vitamin D therapy, zinc therapy, supplemental oxygen, pulse oximetry, prophylactic anticoagulation. On dexamethasone as intermittently needed O2 Follow-up inflammatory markers, ID consulted: recommended supportive care --HTN, added clonidine patch --Vascular dementia with behavioral disturbance Verbal prompting, verbal redirection, benzodiazepine therapy as clinically indicated. --Cerebral atherosclerosis Risk factor reduction, antiplatelet therapy, supportive care. --General debility Bed alarm, fall precautions, supportive care. Physical therapy occupational therapy -- Mild to moderate malnutrition Increase protein intake, dietary supplementation when awake and alert only. Aspiration precautions. --Nicotine dependence Smoking cessation counseled, supportive care, behavior change counseled, pulse 50 minutes. --Volume depletion/dehydration IV fluids and supportive care, increase oral fluids --Metabolic encephalopathy Multifactorial , underlying dementia , malnutrition , advanced age COVID-19 infection , psych problems Treat underlying cause and supportive care --DVT prophylaxis SCD to bilateral extremities while in bed, prophylactic anticoagulation Hospital course: 04/13/2022; patient is lethargic sleepy, restraint for safety Continue current management, psych evaluation noted and appreciated 04/14/2022; patient is more alert today trying to pull , agitated On restraints, refusing to eat, consider Dobbhoff placement for tube feeding if needed 04/15/2022; COVID-19 positive[ 03/31 and 04/13] Check inflammatory markers, ID consulted Patient is refusing medications and diet Confused and agitated, Dobbhoff placement and tube feeding per protocol 04/16/2022; patient is more alert and awake Tolerating liquids, will advance the diet as tolerated Check physical therapy occupational therapy evaluation and recommendations DC planning per case management 04/17/2022; patient is on pured diet, Will advance the diet as tolerated 04/18/2022; recommend hospice, try to call next of kin the daughter many times Unable to reach, hospice consult inpatient versus home hospice versus SNF with hospice 04/19: Patient remains on restraint and confused. He is on 2 L nasal cannula O2. We will start on dexamethasone for 10 days. We will also Low-dose of Seroquel for agitation and anxiety. Continue to follow clinically, waiting on SNF placement 04/20: Cont seroquel, restraint as needed. follow clinically. still positive for Covid, cont dexamethasone, pending placement. No family info in the file. 04/21: remains restraint, patient o RA today, does not follow commend, added clonidine path for HTN, stopped iv fluid.follow clinically. 04/22: Patient remains in restraints. Patient currently on room air with saturations at 96%. Patient remains confused and does not follow commands. Blood pressure much better controlled. Continue current regimen. Please review case management notes from 04/20. Caregiver currently unable to accept the patient at home until they find a place that can meet his needs. History Interval history: No new issues overnight Hospitalist Physical - Constitutional Vitals: Temp Pulse Resp BP Pulse Ox 98.5 F 94 H 17 158/87 97 04/23/22 06:45 04/23/22 06:45 04/23/22 06:45 04/23/22 06:45 04/23/22 06:45 General appearance: Present: no acute distress, well-nourished - EENT Eyes: Present: PERRL, EOM intact ENT: hearing intact, clear oral mucosa, dentition normal - Neck Neck: Present: supple, normal ROM - Respiratory Respiratory effort: normal Respiratory: bilateral: CTA - Cardiovascular Rhythm: regular Heart Sounds: Present: S1 & S2. Absent: gallop, rub - Extremities Extremities: no ischemia, No edema, Full ROM - Abdominal General gastrointestinal: soft, non-tender, non-distended, normal bowel sounds - Integumentary Integumentary: Present: clear, warm, dry - Neurologic Neurologic: CNII-XII intact, moves all extremities Results - Labs CBC & Chem 7: 04/23/22 07:06 04/23/22 07:06 Labs: Laboratory Last Values WBC 7.7 K/mm3 (4.5-11.0) 04/23/22 07:06 RBC 4.33 M/mm3 (3.65-5.03) 04/23/22 07:06 Hgb 13.6 gm/dl (11.8-15.2) 04/23/22 07:06 Hct 38.0 % (35.5-45.6) 04/23/22 07:06 MCV 88 fl (84-94) 04/23/22 07:06 MCH 31 pg (28-32) 04/23/22 07:06 MCHC 36 % (32-34) H 04/23/22 07:06 RDW 12.9 % (13.2-15.2) L 04/23/22 07:06 Plt Count 127 K/mm3 (140-440) L 04/23/22 07:06 Lymph % (Auto) 11.1 % (13.4-35.0) L 04/23/22 07:06 [place] % (Auto) 8.8 % (0.0-7.3) H 04/23/22 07:06 Eos % (Auto) 0.1 % (0.0-4.3) 04/23/22 07:06 Baso % (Auto) 0.5 % (0.0-1.8) 04/23/22 07:06 Lymph # (Auto) 0.9 K/mm3 (1.2-5.4) L 04/23/22 07:06 [place] # (Auto) 0.7 K/mm3 (0.0-0.8) 04/23/22 07:06 Eos # (Auto) 0.0 K/mm3 (0.0-0.4) 04/23/22 07:06 Baso # (Auto) 0.0 K/mm3 (0.0-0.1) 04/23/22 07:06 Seg Neutrophils % 79.5 % (40.0-70.0) H 04/23/22 07:06 Seg Neutrophils # 6.1 K/mm3 (1.8-7.7) 04/23/22 07:06 D-Dimer 376.26 ng/mlDDU (0-234) H 04/18/22 09:00 Sodium 143 mmol/L (137-145) 04/23/22 07:06 Potassium 3.8 mmol/L (3.6-5.0) 04/23/22 07:06 Chloride 103.2 mmol/L (98-107) 04/23/22 07:06 Carbon Dioxide 28 mmol/L (22-30) 04/23/22 07:06 Anion Gap 16 mmol/L 04/23/22 07:06 BUN 15 mg/dL (9-20) 04/23/22 07:06 Creatinine 0.6 mg/dL (0.8-1.3) L 04/23/22 07:06 Estimated GFR > 60 ml/min 04/23/22 07:06 BUN/Creatinine Ratio 25 % 04/23/22 07:06 Glucose 68 mg/dL (75-100) L 04/23/22 07:06 Calcium 9.1 mg/dL (8.4-10.2) 04/23/22 07:06 Magnesium 2.50 mg/dL (1.7-2.3) H 04/12/22 10:45 Ferritin 1407.0 ng/mL (30.0-300.0) H 04/18/22 09:00 Total Bilirubin 0.70 mg/dL (0.1-1.2) 04/23/22 07:06 AST 34 units/L (5-40) 04/23/22 07:06 ALT 50 units/L (7-56) 04/23/22 07:06 Alkaline Phosphatase 81 units/L (35-129) 04/23/22 07:06 Lactate Dehydrogenase 229 units/L (91-180) H 04/18/22 09:00 C-Reactive Protein 1.10 mg/dL (0.00-1.30) 04/18/22 09:00 Total Protein 5.3 g/dL (6.3-8.2) L 04/23/22 07:06 Albumin 3.3 g/dL (3.9-5) L 04/23/22 07:06 Albumin/Globulin Ratio 1.7 % 04/23/22 07:06 SARS-CoV-2 (PCR) Positive (Negative) A 04/20/22 14:25 [place]/IV: Voiding Method Diaper Active Medications - Current Medications Current Medications: Generic Name Dose Route Start Last Admin Trade Name Freq PRN Reason Stop Dose Admin Acetaminophen 650 mg 04/06/22 15:59 Acetaminophen 325 Mg Tab PO Q4H PRN Pain MILD(1-3)/Fever >100.5/MCKENZIE Albuterol 2.5 mg 04/06/22 15:59 Albuterol 2.5 Mg/3 Ml Nebu IH Q4HRT PRN Shortness Of Breath Lipase/Protease/Amylase 1 each 04/15/22 16:02 Lipase 10,500/Protease 25,000/Amylase 43,750 (Units) Dr Barrios FEEDTUBE PRN PRN For Clogged Feeding Tube Aspirin 81 mg 04/07/22 10:00 04/22/22 15:00 Aspirin Ec 81 Mg Tab PO Not Given QDAY GALINA Cholecalciferol 1,000 unit 04/07/22 10:00 04/22/22 12:35 Cholecalciferol (Vit D3) 1000 Unit (25 Mcg) Tab PO Not Given QDAY GALINA Clonidine HCl 0.2 mg 04/21/22 11:00 04/21/22 10:52 Clonidine Tts 0.2 Mg/24 Hr Patch TD 0.2 mg Th@1000 GALINA Administration Dexamethasone 6 mg 04/19/22 16:00 04/22/22 15:00 Dexamethasone 2 Mg Tab PO 04/28/22 10:01 Not Given Q24HR GALINA Fluticasone Propionate 50 mcg 04/07/22 10:00 04/22/22 12:35 Fluticasone Propionate Nasal [place] 16 Gm NS Not Given QDAY GALINA Heparin Sodium (Porcine) 5,000 unit 04/06/22 22:00 04/22/22 23:00 Heparin 5,000 Unit/1 Ml Vial SUB-Q 5,000 unit Q12HR GALINA Administration Hydralazine HCl 10 mg 04/22/22 15:07 04/22/22 17:20 Hydralazine 20 Mg/1 Ml Inj IV 10 mg Q4H PRN Administration Hypertension Hydromorphone HCl 0.5 mg 04/06/22 15:59 04/12/22 19:53 Hydromorphone 0.5 Mg/0.5 Ml Inj IV 0.5 mg Q23H PRN Administration Pain , Severe (7-10) Lorazepam 0.5 mg 04/08/22 15:00 04/22/22 17:19 Lorazepam 2 Mg/Ml Vial IV 0.5 mg Q23H PRN Administration Agitation Melatonin 5 mg 04/07/22 11:21 04/11/22 23:27 Melatonin 5 Mg Tab PO 5 mg QHS PRN Administration Sleep Mirtazapine 15 mg 04/11/22 22:00 06/24/22 22:59 Mirtazapine 15 Mg Tab PO 15 mg QHS GALINA Administration Ondansetron HCl 4 mg 04/06/22 15:59 Ondansetron 4 Mg/2 Ml Inj IV Q8H PRN Nausea And Vomiting Oxycodone/Acetaminophen 1 tab 04/06/22 15:59 04/13/22 22:21 Oxycodone /Acetaminophen 5-325mg Tab PO 1 tab Q16H PRN Administration Pain, Moderate (4-6) Quetiapine Fumarate 25 mg 04/21/22 14:00 04/22/22 20:24 Quetiapine 25 Mg Tab PO 25 mg TID GALINA Administration Simple Syrup 15 ml 04/15/22 16:02 Simple Syrup 15 Ml FEEDTUBE PRN PRN Hypoglycemia Simple Syrup 30 ml 04/15/22 16:02 Simple Syrup 15 Ml FEEDTUBE PRN PRN Hypoglycemia Sodium Bicarbonate 325 mg 04/15/22 16:02 Sodium Bicarbonate 325 Mg Tab FEEDTUBE PRN PRN For Clogged Feeding Tube Sodium Chloride 10 ml 04/06/22 22:00 04/22/22 23:00 Sodium Chloride 0.9% 10 Ml Flush Syringe IV 10 ml BID GALINA Administration Sodium Chloride 10 ml 04/06/22 15:59 Sodium Chloride 0.9% 10 Ml Flush Syringe IV PRN PRN LINE FLUSH Tiotropium [place] 1 puff 04/07/22 10:00 04/22/22 09:41 Tiotropium 18 Mcg Cap Inhalation IH Not Given QDAY GALINA Valproic Acid 500 mg 04/19/22 22:00 04/22/22 22:59 Valproic Acid 250 Mg/5 Ml Oral Liqd PO 500 mg BID GALINA Administration Nutrition/Malnutrition Assess - Dietary Evaluation Nutrition/Malnutrition Findings: Nutrition Notes Start: 04/07/22 15:47 Freq: Status: Active Protocol: Document 04/18/22 12:22 FARIBA (Rec: 04/18/22 12:39 [email or web address] [id number]) Nutrition Notes Initial or Follow up Brief Note Current Diagnosis Diabetes,Hypertension, Malnutrition Other Pertinent Diagnosis COVID-19, Debility, Dehydration, Metabolic Encephalopathy, Dementia ... Current Diet Pureed Diet (since L 04/16). Height 5 ft 2 in Weight 42.9 kg [place] Body Weight (kg) 53.63 BMI 17.3 Weight change and time frame No body weight change reported in 3 days. Weight Status Underweight Subjective/Other Information RD consult for routine F/U on dietary advancement. TF discontinued on 04/16 am, and Pt advanced to PO Pureed Diet. Pt remains on 4 point restrains. Pt's PO intake has improved and was Fair (60%), according to RN note. RN note on 04/16/22 17:29: Assist with diner. patient eat 60% of allie - END OF NOTE. Pt is on Nasal Cannula, O2 saturation @ 98%, according to Physical Assessment History notes. Percent of energy/protein needs met: Prescribed Pureed Diet provides for energy/protein needs (1,804 Kcal/77 g) during LOS. #1 Nutrition Diagnosis Inadequate protein-energy intake Comments: Change Nutrition Diagnosis. TF discontinued on 04/16 am, and Pt advanced to PO Pureed Diet. Pt remains on 4 point restrains. Pt's PO intake has improved and was Fair (60%), according to RN note. Diagnosis Progress(for reassessment Improved documentation) Is patient on ventilator? No Is Patient Ambulatory and/or Out of Bed Yes REE-([place]asscock-St. Jeor-ambulatory/OOB) [ 1362.725 NUTR.[id number]] Kcal/Kg value to use for calculation 30 Approximate Energy Requirements Using 1287 kcal/Kg Calculation Used for Recommendations Kcal/kg Additional Notes Protein: 1-1.2 g/Kg IBW; 54-65 g/day. Fluids: 1 ml/Kcal, or as per MD. Nutrition Intervention Change Diet Order: Continue Pureed Diet. Nutrition Support: Discontinued. Goal #1 Adjust the dietary intervention to better serve Pt's needs and clinical conditions during LOS. Follow-Up By: 04/25/22 Additional Comments Continue monitoring food tolerance, %PO intake of meals , and BM.
[2022-04-23] MEDS: CHOLECALCIFEROL (VIT D3) 1000 UNIT (25 mcg) TAB PO SCH (10:21)
[2022-04-23] MEDS: VALPROIC ACID 250 MG/5 ML ORAL LIQD PO SCH ×2 (10:21→22:52)
[2022-04-23] MEDS: DEXAMETHASONE 2 MG TAB PO SCH (10:21)
[2022-04-23] MEDS: HEPARIN 5,000 UNIT/1 ML VIAL SUB-Q SCH ×2 (10:22→23:00)
[2022-04-23] MEDS: ASPIRIN EC 81 MG TAB PO SCH (10:22)
[2022-04-23] MEDS: QUEtiapine 25 MG TAB PO SCH ×3 (10:22→22:52)
[2022-04-23] MEDS: FLUTICASONE PROPIONATE NASAL SPRAY 16 GM NS SCH (10:23)
--- NOTE | 2022-04-23 12:18 | Progress Note ---
Subjective - Reason for Consult Consult date: 04/23/22 Reason for consult: Mental health evaluation - Chief Complaint Chief complaint: The patient was seen today. The patient continues to be confused and he is in bilateral wrist restraints. REVIEW OF SYSTEMS Unable to assess MENTAL STATUS EXAMINATION Unable to assess Diagnoses: Dementia with behavioral disturbances Treatment Plan: Continue valproc acid 500mg BID Continue Remeron 15mg po qhs Continue Seroquel 25mg po TID Medical: Per primary Sitter: Defer to primary Disposition: Do not recommend inpatient psych treatment at this time. Will follow for psych progress and med management Thank you Case staffed with Dr. Hebert Mental Status Exam - Vital signs Last Vital Signs Temp 97 F L 04/23/22 11:11 Pulse 68 04/23/22 11:11 Resp 16 04/23/22 11:11 BP 153/72 04/23/22 11:11 Pulse Ox 2 L 04/23/22 11:11
[2022-04-23] MEDS: MIRTAZAPINE 15 MG TAB PO SCH (22:52)
--- NOTE | 2022-04-24 09:26 | Progress Note ---
Assessment and Plan Assessment and plan: 76 YO Male H with Vascular Dementia with Behavioral disturbance, Cerebral Atherosclerosis, DM, BPH, HTN, Malnutrition, Coronavirus Infection. Patient remains confused, lethargic with diminished cognition. Patient remains at baseline level of cognition and function. Hospice team consulted. Case man agement consulted. COVID-19 positive x2 discharge planning [facility] with [facility] care. -- COVID-19 positive 03/31/2022 and 04/13/2022 coronavirus infection Coronavirus protocol: vitamin C therapy, vitamin D therapy, zinc therapy, supplemental oxygen, pulse oximetry, prophylactic anticoagulation. On dexamethasone as intermittently needed O2 Follow-up inflammatory markers, ID consulted: recommended supportive care --HTN, added clonidine patch --Vascular dementia with behavioral disturbance Verbal prompting, verbal redirection, benzodiazepine therapy as clinically indicated. --Cerebral atherosclerosis Risk factor reduction, antiplatelet therapy, supportive care. --General debility Bed alarm, fall precautions, supportive care. Physical therapy occupational therapy -- Mild to moderate malnutrition Increase protein intake, dietary supplementation when awake and alert only. Aspiration precautions. --Nicotine dependence Smoking cessation counseled, supportive care, behavior change counseled, pulse 50 minutes. --Volume depletion/dehydration IV fluids and supportive care, increase oral fluids --Metabolic encephalopathy Multifactorial , underlying dementia , malnutrition , advanced age COVID-19 infection , psych problems Treat underlying cause and supportive care --DVT prophylaxis SCD to bilateral extremities while in bed, prophylactic anticoagulation Hospital course: 04/13/2022; patient is lethargic sleepy, restraint for safety Continue current management, psych evaluation noted and appreciated 04/14/2022; patient is more alert today trying to pull , agitated On restraints, refusing to eat, consider Dobbhoff placement for tube feeding if needed 04/15/2022; COVID-19 positive[ 03/31 and 04/13] Check inflammatory markers, ID consulted Patient is refusing medications and diet Confused and agitated, Dobbhoff placement and tube feeding per protocol 04/16/2022; patient is more alert and awake Tolerating liquids, will advance the diet as tolerated Check physical therapy occupational therapy evaluation and recommendations DC planning per case management 04/17/2022; patient is on pured diet, Will advance the diet as tolerated 04/18/2022; recommend hospice, try to call next of kin the daughter many times Unable to reach, hospice consult inpatient versus home hospice versus SNF with hospice 04/19: Patient remains on restraint and confused. He is on 2 L nasal cannula O2. We will start on dexamethasone for 10 days. We will also Low-dose of Seroquel for agitation and anxiety. Continue to follow clinically, waiting on SNF placement 04/20: Cont seroquel, restraint as needed. follow clinically. still positive for Covid, cont dexamethasone, pending placement. No family info in the file. 04/21: remains restraint, patient o RA today, does not follow commend, added clonidine path for HTN, stopped iv fluid.follow clinically. 04/22: Patient remains in restraints. Patient currently on room air with saturations at 96%. Patient remains confused and does not follow commands. Blood pressure much better controlled. Continue current regimen. Please review case management notes from 04/20. Caregiver currently unable to accept the patient at home until they find a place that can meet his needs. 04/23: Patient remains confused. Continue current regimen. Awaiting placement. 04/24: Continue dexamethasone and supplemental O2. Patient currently requiring 4 L O2 with saturations of 99%. Patient remains confused. Psychiatry recommends valproic acid, Remeron and Seroquel. Case management reports patient has not received any acceptances to [facility]. Patient previously lived alone in an . At this time, patient is unable to live alone and caregiver is unable to care for the patient until they find a place that can meet his needs. History Interval history: No new issues overnight Hospitalist Physical - Constitutional Vitals: Temp Pulse Resp BP Pulse Ox 98.2 F 111 H 17 165/90 99 04/24/22 05:50 04/24/22 05:50 04/24/22 05:50 04/24/22 05:50 04/24/22 08:34 General appearance: Present: no acute distress, well-nourished - EENT Eyes: Present: PERRL, EOM intact ENT: hearing intact, clear oral mucosa, dentition normal - Neck Neck: Present: supple, normal ROM - Respiratory Respiratory effort: normal Respiratory: bilateral: CTA - Cardiovascular Rhythm: regular Heart Sounds: Present: S1 & S2. Absent: gallop, rub - Extremities Extremities: no ischemia, No edema, Full ROM - Abdominal General gastrointestinal: soft, non-tender, non-distended, normal bowel sounds - Integumentary Integumentary: Present: clear, warm, dry - Neurologic Neurologic: CNII-XII intact, moves all extremities Results - Labs CBC & Chem 7: 04/23/22 07:06 04/23/22 07:06 Labs: Laboratory Last Values WBC 7.7 K/mm3 (4.5-11.0) 04/23/22 07:06 RBC 4.33 M/mm3 (3.65-5.03) 04/23/22 07:06 Hgb 13.6 gm/dl (11.8-15.2) 04/23/22 07:06 Hct 38.0 % (35.5-45.6) 04/23/22 07:06 MCV 88 fl (84-94) 04/23/22 07:06 MCH 31 pg (28-32) 04/23/22 07:06 MCHC 36 % (32-34) H 04/23/22 07:06 RDW 12.9 % (13.2-15.2) L 04/23/22 07:06 Plt Count 127 K/mm3 (140-440) L 04/23/22 07:06 Lymph % (Auto) 11.1 % (13.4-35.0) L 04/23/22 07:06 [place] % (Auto) 8.8 % (0.0-7.3) H 04/23/22 07:06 Eos % (Auto) 0.1 % (0.0-4.3) 04/23/22 07:06 Baso % (Auto) 0.5 % (0.0-1.8) 04/23/22 07:06 Lymph # (Auto) 0.9 K/mm3 (1.2-5.4) L 04/23/22 07:06 [place] # (Auto) 0.7 K/mm3 (0.0-0.8) 04/23/22 07:06 Eos # (Auto) 0.0 K/mm3 (0.0-0.4) 04/23/22 07:06 Baso # (Auto) 0.0 K/mm3 (0.0-0.1) 04/23/22 07:06 Seg Neutrophils % 79.5 % (40.0-70.0) H 04/23/22 07:06 Seg Neutrophils # 6.1 K/mm3 (1.8-7.7) 04/23/22 07:06 D-Dimer 376.26 ng/mlDDU (0-234) H 04/18/22 09:00 Sodium 143 mmol/L (137-145) 04/23/22 07:06 Potassium 3.8 mmol/L (3.6-5.0) 04/23/22 07:06 Chloride 103.2 mmol/L (98-107) 04/23/22 07:06 Carbon Dioxide 28 mmol/L (22-30) 04/23/22 07:06 Anion Gap 16 mmol/L 04/23/22 07:06 BUN 15 mg/dL (9-20) 04/23/22 07:06 Creatinine 0.6 mg/dL (0.8-1.3) L 04/23/22 07:06 Estimated GFR > 60 ml/min 04/23/22 07:06 BUN/Creatinine Ratio 25 % 04/23/22 07:06 Glucose 68 mg/dL (75-100) L 04/23/22 07:06 Calcium 9.1 mg/dL (8.4-10.2) 04/23/22 07:06 Magnesium 2.50 mg/dL (1.7-2.3) H 04/12/22 10:45 Ferritin 1407.0 ng/mL (30.0-300.0) H 04/18/22 09:00 Total Bilirubin 0.70 mg/dL (0.1-1.2) 04/23/22 07:06 AST 34 units/L (5-40) 04/23/22 07:06 ALT 50 units/L (7-56) 04/23/22 07:06 Alkaline Phosphatase 81 units/L (35-129) 04/23/22 07:06 Lactate Dehydrogenase 229 units/L (91-180) H 04/18/22 09:00 C-Reactive Protein 1.10 mg/dL (0.00-1.30) 04/18/22 09:00 Total Protein 5.3 g/dL (6.3-8.2) L 04/23/22 07:06 Albumin 3.3 g/dL (3.9-5) L 04/23/22 07:06 Albumin/Globulin Ratio 1.7 % 04/23/22 07:06 SARS-CoV-2 (PCR) Positive (Negative) A 04/20/22 14:25 [place]/IV: Voiding Method Condom Catheter Active Medications - Current Medications Current Medications: Generic Name Dose Route Start Last Admin Trade Name Freq PRN Reason Stop Dose Admin Acetaminophen 650 mg 04/06/22 15:59 Acetaminophen 325 Mg Tab PO Q4H PRN Pain MILD(1-3)/Fever >100.5/MCKENZIE Albuterol 2.5 mg 04/06/22 15:59 Albuterol 2.5 Mg/3 Ml Nebu IH Q4HRT PRN Shortness Of Breath Lipase/Protease/Amylase 1 each 04/15/22 16:02 Lipase 10,500/Protease 25,000/Amylase 43,750 (Units) Dr Barrios FEEDTUBE PRN PRN For Clogged Feeding Tube Aspirin 81 mg 04/07/22 10:00 04/23/22 10:22 Aspirin Ec 81 Mg Tab PO 81 mg QDAY GALINA Administration Cholecalciferol 1,000 unit 04/07/22 10:00 04/23/22 10:21 Cholecalciferol (Vit D3) 1000 Unit (25 Mcg) Tab PO 1,000 unit QDAY GALINA Administration Clonidine HCl 0.2 mg 04/21/22 11:00 04/21/22 10:52 Clonidine Tts 0.2 Mg/24 Hr Patch TD 0.2 mg Th@1000 GALINA Administration Dexamethasone 6 mg 04/19/22 16:00 04/23/22 10:21 Dexamethasone 2 Mg Tab PO 04/28/22 10:01 6 mg Q24HR GALINA Administration Fluticasone Propionate 50 mcg 04/07/22 10:00 04/23/22 10:23 Fluticasone Propionate Nasal [place] 16 Gm NS 50 mcg QDAY GALINA Administration Heparin Sodium (Porcine) 5,000 unit 04/06/22 22:00 04/23/22 23:00 Heparin 5,000 Unit/1 Ml Vial SUB-Q 5,000 unit Q12HR GALINA Administration Hydralazine HCl 10 mg 04/22/22 15:07 04/22/22 17:20 Hydralazine 20 Mg/1 Ml Inj IV 10 mg Q4H PRN Administration Hypertension Hydromorphone HCl 0.5 mg 04/06/22 15:59 04/12/22 19:53 Hydromorphone 0.5 Mg/0.5 Ml Inj IV 0.5 mg Q23H PRN Administration Pain , Severe (7-10) Lorazepam 0.5 mg 04/08/22 15:00 04/22/22 17:19 Lorazepam 2 Mg/Ml Vial IV 0.5 mg Q23H PRN Administration Agitation Melatonin 5 mg 04/07/22 11:21 04/11/22 23:27 Melatonin 5 Mg Tab PO 5 mg QHS PRN Administration Sleep Mirtazapine 15 mg 04/11/22 22:00 04/23/22 22:52 Mirtazapine 15 Mg Tab PO 15 mg QHS GALINA Administration Ondansetron HCl 4 mg 04/06/22 15:59 Ondansetron 4 Mg/2 Ml Inj IV Q8H PRN Nausea And Vomiting Oxycodone/Acetaminophen 1 tab 04/06/22 15:59 04/13/22 22:21 Oxycodone /Acetaminophen 5-325mg Tab PO 1 tab Q16H PRN Administration Pain, Moderate (4-6) Quetiapine Fumarate 25 mg 04/21/22 14:00 04/23/22 22:52 Quetiapine 25 Mg Tab PO 25 mg TID GALINA Administration Simple Syrup 15 ml 04/15/22 16:02 Simple Syrup 15 Ml FEEDTUBE PRN PRN Hypoglycemia Simple Syrup 30 ml 04/15/22 16:02 Simple Syrup 15 Ml FEEDTUBE PRN PRN Hypoglycemia Sodium Bicarbonate 325 mg 04/15/22 16:02 Sodium Bicarbonate 325 Mg Tab FEEDTUBE PRN PRN For Clogged Feeding Tube Sodium Chloride 10 ml 04/06/22 22:00 04/23/22 22:53 Sodium Chloride 0.9% 10 Ml Flush Syringe IV 10 ml BID GALINA Administration Sodium Chloride 10 ml 04/06/22 15:59 Sodium Chloride 0.9% 10 Ml Flush Syringe IV PRN PRN LINE FLUSH Tiotropium [place] 1 puff 04/07/22 10:00 04/23/22 08:10 Tiotropium 18 Mcg Cap Inhalation IH Not Given QDAY GALINA Valproic Acid 500 mg 04/19/22 22:00 04/23/22 22:52 Valproic Acid 250 Mg/5 Ml Oral Liqd PO 500 mg BID GALINA Administration Nutrition/Malnutrition Assess - Dietary Evaluation Nutrition/Malnutrition Findings: Nutrition Notes Start: 04/07/22 15:47 Freq: Status: Active Protocol: Document 04/18/22 12:22 FARIBA (Rec: 04/18/22 12:39 [email or web address] [id number]) Nutrition Notes Initial or Follow up Brief Note Current Diagnosis Diabetes,Hypertension, Malnutrition Other Pertinent Diagnosis COVID-19, Debility, Dehydration, Metabolic Encephalopathy, Dementia ... Current Diet Pureed Diet (since L 04/16). Height 5 ft 2 in Weight 42.9 kg [place] Body Weight (kg) 53.63 BMI 17.3 Weight change and time frame No body weight change reported in 3 days. Weight Status Underweight Subjective/Other Information RD consult for routine F/U on dietary advancement. TF discontinued on 04/16 am, and Pt advanced to PO Pureed Diet. Pt remains on 4 point restrains. Pt's PO intake has improved and was Fair (60%), according to RN note. RN note on 04/16/22 17:29: Assist with diner. patient eat 60% of allie - END OF NOTE. Pt is on Nasal Cannula, O2 saturation @ 98%, according to Physical Assessment History notes. Percent of energy/protein needs met: Prescribed Pureed Diet provides for energy/protein needs (1,804 Kcal/77 g) during LOS. #1 Nutrition Diagnosis Inadequate protein-energy intake Comments: Change Nutrition Diagnosis. TF discontinued on 04/16 am, and Pt advanced to PO Pureed Diet. Pt remains on 4 point restrains. Pt's PO intake has improved and was Fair (60%), according to RN note. Diagnosis Progress(for reassessment Improved documentation) Is patient on ventilator? No Is Patient Ambulatory and/or Out of Bed Yes [facility] [ 1362.725 [id number]] Kcal/Kg value to use for calculation 30 Approximate Energy Requirements Using 1287 kcal/Kg Calculation Used for Recommendations Kcal/kg Additional Notes Protein: 1-1.2 g/Kg IBW; 54-65 g/day. Fluids: 1 ml/Kcal, or as per MD. Nutrition Intervention Change Diet Order: Continue Pureed Diet. Nutrition Support: Discontinued. Goal #1 Adjust the dietary intervention to better serve Pt's needs and clinical conditions during LOS. Follow-Up By: 04/25/22 Additional Comments Continue monitoring food tolerance, %PO intake of meals , and BM.
[2022-04-24] MEDS: TIOTROPIUM 18 MCG CAP INHALATION IH SCH (10:42)
[2022-04-24] MEDS: QUEtiapine 25 MG TAB PO SCH ×3 (11:49→22:30)
[2022-04-24] MEDS: DEXAMETHASONE 2 MG TAB PO SCH (12:47)
[2022-04-24] MEDS: ASPIRIN EC 81 MG TAB PO SCH (12:47)
[2022-04-24] MEDS: VALPROIC ACID 250 MG/5 ML ORAL LIQD PO SCH ×2 (12:47→22:30)
[2022-04-24] MEDS: HEPARIN 5,000 UNIT/1 ML VIAL SUB-Q SCH ×2 (12:48→22:30)
[2022-04-24] MEDS: CHOLECALCIFEROL (VIT D3) 1000 UNIT (25 mcg) TAB PO SCH (12:51)
[2022-04-24] MEDS: FLUTICASONE PROPIONATE NASAL SPRAY 16 GM NS SCH (12:56)
[2022-04-24] MEDS: MIRTAZAPINE 15 MG TAB PO SCH (22:31)
[2022-04-25 04:18] LABS: Basophils % (Auto) 0.2 % (0.0-1.8); Eosinophils % (Auto) 0.1 % (0.0-4.3); Hematocrit 44.5 % (35.5-45.6); Hemoglobin 15.5 gm/dl (11.8-15.2); Lymphocytes # (Auto) 0.9 K/mm3 (1.2-5.4); Lymphocytes % (Auto) 9.6 % (13.4-35.0); Mean Corpuscular HGB Conc 35 % (32-34); Mean Corpuscular Volume 90 fl (84-94); Monocytes # (Auto) 0.8 K/mm3 (0.0-0.8); Monocytes % (Auto) 8.2 % (0.0-7.3); Platelet Count 146 K/mm3 (140-440); Red Blood Count 4.94 M/mm3 (3.65-5.03); Red Cell Distribution Width 12.8 % (13.2-15.2)
[2022-04-25 04:38] LABS: Blood Urea Nitrogen 19 mg/dL (9-20); Hemolysis Index 5
[2022-04-25 05:04] LABS: BUN/Creatinine Ratio 27
--- NOTE | 2022-04-25 10:07 | Progress Note ---
Assessment and Plan Assessment and plan: 76 YO Male H with Vascular Dementia with Behavioral disturbance, Cerebral Atherosclerosis, DM, BPH, HTN, Malnutrition, Coronavirus Infection. Patient remains confused, lethargic with diminished cognition. Patient remains at baseline level of cognition and function. Hospice team consulted. Case man agement consulted. COVID-19 positive x2 discharge planning to halfway facility with hospice care. -- COVID-19 positive 03/31/2022 and 04/13/2022 coronavirus infection Coronavirus protocol: vitamin C therapy, vitamin D therapy, zinc therapy, supplemental oxygen, pulse oximetry, prophylactic anticoagulation. On dexamethasone as intermittently needed O2 Follow-up inflammatory markers, ID consulted: recommended supportive care --HTN, added clonidine patch --Vascular dementia with behavioral disturbance Verbal prompting, verbal redirection, benzodiazepine therapy as clinically indicated. --Cerebral atherosclerosis Risk factor reduction, antiplatelet therapy, supportive care. --General debility Bed alarm, fall precautions, supportive care. Physical therapy occupational therapy -- Mild to moderate malnutrition Increase protein intake, dietary supplementation when awake and alert only. Aspiration precautions. --Nicotine dependence Smoking cessation counseled, supportive care, behavior change counseled, pulse 50 minutes. --Volume depletion/dehydration IV fluids and supportive care, increase oral fluids --Metabolic encephalopathy Multifactorial , underlying dementia , malnutrition , advanced age COVID-19 infection , psych problems Treat underlying cause and supportive care --DVT prophylaxis SCD to bilateral extremities while in bed, prophylactic anticoagulation Hospital course: 04/13/2022; patient is lethargic sleepy, restraint for safety Continue current management, psych evaluation noted and appreciated 04/14/2022; patient is more alert today trying to pull , agitated On restraints, refusing to eat, consider Dobbhoff placement for tube feeding if needed 04/15/2022; COVID-19 positive[ 03/31 and 04/13] Check inflammatory markers, ID consulted Patient is refusing medications and diet Confused and agitated, Dobbhoff placement and tube feeding per protocol 04/16/2022; patient is more alert and awake Tolerating liquids, will advance the diet as tolerated Check physical therapy occupational therapy evaluation and recommendations DC planning per case management 04/17/2022; patient is on pured diet, Will advance the diet as tolerated 04/18/2022; recommend hospice, try to call next of kin the daughter many times Unable to reach, hospice consult inpatient versus home hospice versus SNF with hospice 04/19: Patient remains on restraint and confused. He is on 2 L nasal cannula O2. We will start on dexamethasone for 10 days. We will also Low-dose of Seroquel for agitation and anxiety. Continue to follow clinically, waiting on SNF placement 04/20: Cont seroquel, restraint as needed. follow clinically. still positive for Covid, cont dexamethasone, pending placement. No family info in the file. 04/21: remains restraint, patient o RA today, does not follow commend, added clonidine path for HTN, stopped iv fluid.follow clinically. 04/22: Patient remains in restraints. Patient currently on room air with saturations at 96%. Patient remains confused and does not follow commands. Blood pressure much better controlled. Continue current regimen. Please review case management notes from 04/20. Caregiver currently unable to accept the patient at home until they find a place that can meet his needs. 04/23: Patient remains confused. Continue current regimen. Awaiting placement. 04/24: Continue dexamethasone and supplemental O2. Patient currently requiring 4 L O2 with saturations of 99%. Patient remains confused. Psychiatry recommends valproic acid, Remeron and Seroquel. Case management reports patient has not received any acceptances to fpc. Patient previously lived alone in an RV. At this time, patient is unable to live alone and caregiver is unable to care for the patient until they find a place that can meet his needs. 04/25: Continue dexamethasone and supplemental O2. Patient remains on 4 L O2 with saturations of 99%. Patient remains confused and does not follow commands. Patient still requiring restraints. Psychiatry recommends valproic acid, Remeron and Seroquel. Case management reports patient has not received any acceptances to [facility]. Patient previously lived alone in an RV. At this time, patient is unable to live alone and caregiver is unable to care for the patient until they find a place that can meet his needs. History Interval history: No new issues overnight Hospitalist Physical - Constitutional Vitals: Temp Pulse Resp BP Pulse Ox 98 F 110 H 17 160/80 2 L 04/24/22 23:00 04/24/22 23:00 04/24/22 23:00 04/24/22 23:00 04/24/22 23:00 General appearance: Present: no acute distress, well-nourished - EENT Eyes: Present: PERRL, EOM intact ENT: hearing intact, clear oral mucosa, dentition normal - Neck Neck: Present: supple, normal ROM - Respiratory Respiratory effort: normal Respiratory: bilateral: CTA - Cardiovascular Rhythm: regular Heart Sounds: Present: S1 & S2. Absent: gallop, rub - Extremities Extremities: no ischemia, No edema, Full ROM - Abdominal General gastrointestinal: soft, non-tender, non-distended, normal bowel sounds - Integumentary Integumentary: Present: clear, warm, dry - Neurologic Neurologic: CNII-XII intact, moves all extremities Results - Labs CBC & Chem 7: 04/25/22 04:01 04/25/22 04:01 Labs: Laboratory Last Values WBC 9.4 K/mm3 (4.5-11.0) 04/25/22 04:01 RBC 4.94 M/mm3 (3.65-5.03) 04/25/22 04:01 Hgb 15.5 gm/dl (11.8-15.2) H 04/25/22 04:01 Hct 44.5 % (35.5-45.6) D 04/25/22 04:01 MCV 90 fl (84-94) 04/25/22 04:01 MCH 31 pg (28-32) 04/25/22 04:01 MCHC 35 % (32-34) H 04/25/22 04:01 RDW 12.8 % (13.2-15.2) L 04/25/22 04:01 Plt Count 146 K/mm3 (140-440) 04/25/22 04:01 Lymph % (Auto) 9.6 % (13.4-35.0) L 04/25/22 04:01 [place]cock % (Auto) 8.2 % (0.0-7.3) H 04/25/22 04:01 Eos % (Auto) 0.1 % (0.0-4.3) 04/25/22 04:01 Baso % (Auto) 0.2 % (0.0-1.8) 04/25/22 04:01 Lymph # (Auto) 0.9 K/mm3 (1.2-5.4) L 04/25/22 04:01 [place]cock # (Auto) 0.8 K/mm3 (0.0-0.8) 04/25/22 04:01 Eos # (Auto) 0.0 K/mm3 (0.0-0.4) 04/25/22 04:01 Baso # (Auto) 0.0 K/mm3 (0.0-0.1) 04/25/22 04:01 Seg Neutrophils % 81.9 % (40.0-70.0) H 04/25/22 04:01 Seg Neutrophils # 7.7 K/mm3 (1.8-7.7) 04/25/22 04:01 D-Dimer 376.26 ng/mlDDU (0-234) H 04/18/22 09:00 Sodium 146 mmol/L (137-145) H 04/25/22 04:01 Potassium 4.2 mmol/L (3.6-5.0) 04/25/22 04:01 Chloride 102.5 mmol/L (98-107) 04/25/22 04:01 Carbon Dioxide 32 mmol/L (22-30) H 04/25/22 04:01 Anion Gap 16 mmol/L 04/25/22 04:01 BUN 19 mg/dL (9-20) 04/25/22 04:01 Creatinine 0.7 mg/dL (0.8-1.3) L 04/25/22 04:01 Estimated GFR > 60 ml/min 04/25/22 04:01 BUN/Creatinine Ratio 27 % 04/25/22 04:01 Glucose 89 mg/dL (75-100) 04/25/22 04:01 POC Glucose 81 mg/dL (70-105) 04/25/22 07:35 Calcium 10.0 mg/dL (8.4-10.2) 04/25/22 04:01 Magnesium 2.50 mg/dL (1.7-2.3) H 04/12/22 10:45 Ferritin 1407.0 ng/mL (30.0-300.0) H 04/18/22 09:00 Total Bilirubin 0.70 mg/dL (0.1-1.2) 04/23/22 07:06 AST 34 units/L (5-40) 04/23/22 07:06 ALT 50 units/L (7-56) 04/23/22 07:06 Alkaline Phosphatase 81 units/L (35-129) 04/23/22 07:06 Lactate Dehydrogenase 229 units/L (91-180) H 04/18/22 09:00 C-Reactive Protein 1.10 mg/dL (0.00-1.30) 04/18/22 09:00 Total Protein 5.3 g/dL (6.3-8.2) L 04/23/22 07:06 Albumin 3.3 g/dL (3.9-5) L 04/23/22 07:06 Albumin/Globulin Ratio 1.7 % 04/23/22 07:06 SARS-CoV-2 (PCR) Positive (Negative) A 04/20/22 14:25 Kaufman/IV: Voiding Method Condom Catheter Active Medications - Current Medications Current Medications: Generic Name Dose Route Start Last Admin Trade Name Freq PRN Reason Stop Dose Admin Acetaminophen 650 mg 04/06/22 15:59 Acetaminophen 325 Mg Tab PO Q4H PRN Pain MILD(1-3)/Fever >100.5/MCKENZIE Albuterol 2.5 mg 04/06/22 15:59 Albuterol 2.5 Mg/3 Ml Nebu IH Q4HRT PRN Shortness Of Breath Lipase/Protease/Amylase 1 each 04/15/22 16:02 Lipase 10,500/Protease 25,000/Amylase 43,750 (Units) Dr Barrios FEEDTUBE PRN PRN For Clogged Feeding Tube Aspirin 81 mg 04/07/22 10:00 04/24/22 12:47 Aspirin Ec 81 Mg Tab PO 81 mg QDAY GALINA Administration Cholecalciferol 1,000 unit 04/07/22 10:00 04/24/22 12:51 Cholecalciferol (Vit D3) 1000 Unit (25 Mcg) Tab PO 1,000 unit QDAY GALINA Administration Clonidine HCl 0.2 mg 04/21/22 11:00 04/21/22 10:52 Clonidine Tts 0.2 Mg/24 Hr Patch TD 0.2 mg Th@1000 GALINA Administration Dexamethasone 6 mg 04/19/22 16:00 04/24/22 12:47 Dexamethasone 2 Mg Tab PO 04/28/22 10:01 6 mg Q24HR GALINA Administration Fluticasone Propionate 50 mcg 04/07/22 10:00 04/24/22 12:56 Fluticasone Propionate Nasal [place] 16 Gm NS 50 mcg QDAY GALINA Administration Heparin Sodium (Porcine) 5,000 unit 04/06/22 22:00 04/24/22 22:30 Heparin 5,000 Unit/1 Ml Vial SUB-Q 5,000 unit Q12HR GALINA Administration Hydralazine HCl 10 mg 04/22/22 15:07 04/22/22 17:20 Hydralazine 20 Mg/1 Ml Inj IV 10 mg Q4H PRN Administration Hypertension Hydromorphone HCl 0.5 mg 04/06/22 15:59 04/12/22 19:53 Hydromorphone 0.5 Mg/0.5 Ml Inj IV 0.5 mg Q23H PRN Administration Pain , Severe (7-10) Lorazepam 0.5 mg 04/08/22 15:00 04/22/22 17:19 Lorazepam 2 Mg/Ml Vial IV 0.5 mg Q23H PRN Administration Agitation Melatonin 5 mg 04/07/22 11:21 04/11/22 23:27 Melatonin 5 Mg Tab PO 5 mg QHS PRN Administration Sleep Mirtazapine 15 mg 04/11/22 22:00 04/24/22 22:31 Mirtazapine 15 Mg Tab PO 15 mg QHS GALINA Administration Ondansetron HCl 4 mg 04/06/22 15:59 Ondansetron 4 Mg/2 Ml Inj IV Q8H PRN Nausea And Vomiting Oxycodone/Acetaminophen 1 tab 04/06/22 15:59 04/13/22 22:21 Oxycodone /Acetaminophen 5-325mg Tab PO 1 tab Q16H PRN Administration Pain, Moderate (4-6) Quetiapine Fumarate 25 mg 04/21/22 14:00 04/24/22 22:30 Quetiapine 25 Mg Tab PO 25 mg TID GALINA Administration Simple Syrup 15 ml 04/15/22 16:02 Simple Syrup 15 Ml FEEDTUBE PRN PRN Hypoglycemia Simple Syrup 30 ml 04/15/22 16:02 Simple Syrup 15 Ml FEEDTUBE PRN PRN Hypoglycemia Sodium Bicarbonate 325 mg 04/15/22 16:02 Sodium Bicarbonate 325 Mg Tab FEEDTUBE PRN PRN For Clogged Feeding Tube Sodium Chloride 10 ml 04/06/22 22:00 04/24/22 22:31 Sodium Chloride 0.9% 10 Ml Flush Syringe IV 10 ml BID GALINA Administration Sodium Chloride 10 ml 04/06/22 15:59 Sodium Chloride 0.9% 10 Ml Flush Syringe IV PRN PRN LINE FLUSH Tiotropium [place] 1 puff 04/07/22 10:00 04/24/22 10:42 Tiotropium 18 Mcg Cap Inhalation IH Not Given QDAY GALINA Valproic Acid 500 mg 04/19/22 22:00 04/24/22 22:30 Valproic Acid 250 Mg/5 Ml Oral Liqd PO 500 mg BID GALINA Administration Nutrition/Malnutrition Assess - Dietary Evaluation Nutrition/Malnutrition Findings: Nutrition Notes Start: 04/07/22 15:47 Freq: Status: Active Protocol: Document 04/18/22 12:22 FARIBA (Rec: 04/18/22 12:39 FARIBA [id number]) Nutrition Notes Initial or Follow up Brief Note Current Diagnosis Diabetes,Hypertension, Malnutrition Other Pertinent Diagnosis COVID-19, Debility, Dehydration, Metabolic Encephalopathy, Dementia ... Current Diet Pureed Diet (since L 04/16). Height 5 ft 2 in Weight 42.9 kg [place] Body Weight (kg) 53.63 BMI 17.3 Weight change and time frame No body weight change reported in 3 days. Weight Status Underweight Subjective/Other Information RD consult for routine F/U on dietary advancement. TF discontinued on 04/16 am, and Pt advanced to PO Pureed Diet. Pt remains on 4 point restrains. Pt's PO intake has improved and was Fair (60%), according to RN note. RN note on 04/16/22 17:29: Assist with diner. patient eat 60% of allie - END OF NOTE. Pt is on Nasal Cannula, O2 saturation @ 98%, according to Physical Assessment History notes. Percent of energy/protein needs met: Prescribed Pureed Diet provides for energy/protein needs (1,804 Kcal/77 g) during LOS. #1 Nutrition Diagnosis Inadequate protein-energy intake Comments: Change Nutrition Diagnosis. TF discontinued on 04/16 am, and Pt advanced to PO Pureed Diet. Pt remains on 4 point restrains. Pt's PO intake has improved and was Fair (60%), according to RN note. Diagnosis Progress(for reassessment Improved documentation) Is patient on ventilator? No Is Patient Ambulatory and/or Out of Bed Yes REE-(Karnes-St. Jeor-ambulatory/OOB) [ 1362.725 NUTR.[id number]] Kcal/Kg value to use for calculation 30 Approximate Energy Requirements Using 1287 kcal/Kg Calculation Used for Recommendations Kcal/kg Additional Notes Protein: 1-1.2 g/Kg IBW; 54-65 g/day. Fluids: 1 ml/Kcal, or as per MD. Nutrition Intervention Change Diet Order: Continue Pureed Diet. Nutrition Support: Discontinued. Goal #1 Adjust the dietary intervention to better serve Pt's needs and clinical conditions during LOS. Follow-Up By: 04/25/22 Additional Comments Continue monitoring food tolerance, %PO intake of meals , and BM.
[2022-04-25] MEDS: FLUTICASONE PROPIONATE NASAL SPRAY 16 GM NS SCH (10:54)
[2022-04-25] MEDS: HEPARIN 5,000 UNIT/1 ML VIAL SUB-Q SCH ×2 (10:55→21:32)
[2022-04-25] MEDS: QUEtiapine 25 MG TAB PO SCH ×3 (10:56→19:56)
[2022-04-25] MEDS: DEXAMETHASONE 2 MG TAB PO SCH (10:56)
[2022-04-25] MEDS: VALPROIC ACID 250 MG/5 ML ORAL LIQD PO SCH ×2 (10:56→21:10)
[2022-04-25] MEDS: ASPIRIN EC 81 MG TAB PO SCH (10:57)
[2022-04-25] MEDS: CHOLECALCIFEROL (VIT D3) 1000 UNIT (25 mcg) TAB PO SCH (10:57)
[2022-04-25] MEDS: TIOTROPIUM 18 MCG CAP INHALATION IH SCH (11:35)
[2022-04-25] MEDS: D5W/0.45% NACL 1,000 ML IV SCH (17:17)
[2022-04-25] MEDS: LORazepam 2 MG/ML VIAL IV PRN (19:56)
[2022-04-25] MEDS: MIRTAZAPINE 15 MG TAB PO SCH (21:11)
[2022-04-26] MEDS: D5W/0.45% NACL 1,000 ML IV SCH ×2 (05:27→18:01)
[2022-04-26] MEDS: QUEtiapine 25 MG TAB PO SCH ×3 (08:22→21:11)
[2022-04-26] MEDS: HEPARIN 5,000 UNIT/1 ML VIAL SUB-Q SCH ×2 (09:52→21:11)
[2022-04-26] MEDS: VALPROIC ACID 250 MG/5 ML ORAL LIQD PO SCH ×2 (09:52→21:11)
[2022-04-26] MEDS: FLUTICASONE PROPIONATE NASAL SPRAY 16 GM NS SCH (10:14)
[2022-04-26] MEDS: ASPIRIN EC 81 MG TAB PO SCH (10:14)
[2022-04-26] MEDS: CHOLECALCIFEROL (VIT D3) 1000 UNIT (25 mcg) TAB PO SCH (10:14)
[2022-04-26] MEDS: HYDROmorphone 0.5 MG/0.5 ML INJ IV PRN ×2 (10:19→18:07)
[2022-04-26] MEDS: hydrALAZINE 20 MG/1 ML INJ IV PRN (10:19)
[2022-04-26] MEDS: DEXAMETHASONE 2 MG TAB PO SCH (10:21)
[2022-04-26] MEDS: TIOTROPIUM 18 MCG CAP INHALATION IH SCH (11:46)
[2022-04-26] MEDS: cloNIDine TTS 0.3 MG/24 HR PATCH TD SCH (13:41)
--- NOTE | 2022-04-26 17:54 | Progress Note ---
Assessment and Plan Assessment and plan: 76 YO Male H with Vascular Dementia with Behavioral disturbance, Cerebral Atherosclerosis, DM, BPH, HTN, Malnutrition, Coronavirus Infection. Patient remains confused, lethargic with diminished cognition. Patient remains at baseline level of cognition and function. Hospice team consulted. Case man agement consulted. COVID-19 positive x2 [facility] -- COVID-19 positive 03/31/2022 and 04/13/2022 coronavirus infection Coronavirus protocol: vitamin C therapy, vitamin D therapy, zinc therapy, supplemental oxygen, pulse oximetry, prophylactic anticoagulation. On dexamethasone as intermittently needed O2 Follow-up inflammatory markers, ID consulted: recommended supportive care --HTN, added clonidine patch --Vascular dementia with behavioral disturbance Verbal prompting, verbal redirection, benzodiazepine therapy as clinically indicated. --Cerebral atherosclerosis Risk factor reduction, antiplatelet therapy, supportive care. --General debility Bed alarm, fall precautions, supportive care. Physical therapy occupational therapy -- Mild to moderate malnutrition Increase protein intake, dietary supplementation when awake and alert only. Aspiration precautions. --Nicotine dependence Smoking cessation counseled, supportive care, behavior change counseled, pulse 50 minutes. --Volume depletion/dehydration IV fluids and supportive care, increase oral fluids --Metabolic encephalopathy Multifactorial , underlying dementia , malnutrition , advanced age COVID-19 infection , psych problems Treat underlying cause and supportive care --DVT prophylaxis SCD to bilateral extremities while in bed, prophylactic anticoagulation Hospital course: 04/13/2022; patient is lethargic sleepy, restraint for safety Continue current management, psych evaluation noted and appreciated 04/14/2022; patient is more alert today trying to pull , agitated On restraints, refusing to eat, consider [facility] placement for tube feeding if needed 04/15/2022; COVID-19 positive[ 03/31 and 04/13] Check inflammatory markers, ID consulted Patient is refusing medications and diet Confused and agitated, Dobbhoff placement and tube feeding per protocol 04/16/2022; patient is more alert and awake Tolerating liquids, will advance the diet as tolerated Check physical therapy occupational therapy evaluation and recommendations DC planning per case management 04/17/2022; patient is on pured diet, Will advance the diet as tolerated 04/18/2022; recommend hospice, try to call next of kin the daughter many times Unable to reach, hospice consult inpatient versus home hospice versus SNF with hospice 04/19: Patient remains on restraint and confused. He is on 2 L nasal cannula O2. We will start on dexamethasone for 10 days. We will also Low-dose of Seroquel for agitation and anxiety. Continue to follow clinically, waiting on SNF placement 04/20: Cont seroquel, restraint as needed. follow clinically. still positive for Covid, cont dexamethasone, pending placement. No family info in the file. 04/21: remains restraint, patient o RA today, does not follow commend, added clonidine path for HTN, stopped iv fluid.follow clinically. 04/22: Patient remains in restraints. Patient currently on room air with saturations at 96%. Patient remains confused and does not follow commands. Blood pressure much better controlled. Continue current regimen. Please review case management notes from 04/20. Caregiver currently unable to accept the patient at home until they find a place that can meet his needs. 04/23: Patient remains confused. Continue current regimen. Awaiting placement. 04/24: Continue dexamethasone and supplemental O2. Patient currently requiring 4 L O2 with saturations of 99%. Patient remains confused. Psychiatry recommends valproic acid, Remeron and Seroquel. Case management reports patient has not received any acceptances to prison. Patient previously lived alone in an RV. At this time, patient is unable to live alone and caregiver is unable to care for the patient until they find a place that can meet his needs. 04/25: Continue dexamethasone and supplemental O2. Patient remains on 4 L O2 with saturations of 99%. Patient remains confused and does not follow commands. Patient still requiring restraints. Psychiatry recommends valproic acid, Remeron and Seroquel. Case management reports patient has not received any acceptances to prison. Patient previously lived alone in an RV. At this time, patient is unable to live alone and caregiver is unable to care for the patient until they find a place that can meet his needs. 6;; pending placement, continue current management History Interval history: I have seen and examined the patient at the bedside Patient's chart and medications reviewed no new events reported by the nursing Patient remains unresponsive agitated requiring restraints Not taking anything by mouth, spitting the medications Patient is severely emaciated cachectic and dehydrated In mild distress Vital signs noted Hospitalist Physical - Constitutional Vitals: Temp Pulse Resp BP Pulse Ox 97.8 F 111 H 16 198/85 95 04/26/22 11:45 04/26/22 11:45 04/26/22 11:45 04/26/22 11:45 04/26/22 11:45 General appearance: Present: no acute distress, cachectic, disheveled, malodorous - EENT Eyes: Present: PERRL, EOM intact - Neck Neck: Present: supple, normal ROM - Respiratory Respiratory effort: normal Respiratory: bilateral: diminished, negative: rales, rhonchi, wheezing - Cardiovascular Rhythm: regular Heart Sounds: Present: S1 & S2 - Extremities Extremities: no ischemia, No edema - Abdominal General gastrointestinal: soft, non-tender, non-distended, normal bowel sounds - Integumentary Integumentary: Present: clear, warm - Psychiatric Psychiatric: other (Confused noncommunicative) - Neurologic Neurologic: moves all extremities Results - Labs CBC & Chem 7: 04/25/22 04:01 04/25/22 04:01 Labs: Laboratory Last Values WBC 9.4 K/mm3 (4.5-11.0) 04/25/22 04:01 RBC 4.94 M/mm3 (3.65-5.03) 04/25/22 04:01 Hgb 15.5 gm/dl (11.8-15.2) H 04/25/22 04:01 Hct 44.5 % (35.5-45.6) D 04/25/22 04:01 MCV 90 fl (84-94) 04/25/22 04:01 MCH 31 pg (28-32) 04/25/22 04:01 MCHC 35 % (32-34) H 04/25/22 04:01 RDW 12.8 % (13.2-15.2) L 04/25/22 04:01 Plt Count 146 K/mm3 (140-440) 04/25/22 04:01 Lymph % (Auto) 9.6 % (13.4-35.0) L 04/25/22 04:01 [place] % (Auto) 8.2 % (0.0-7.3) H 04/25/22 04:01 Eos % (Auto) 0.1 % (0.0-4.3) 04/25/22 04:01 Baso % (Auto) 0.2 % (0.0-1.8) 04/25/22 04:01 Lymph # (Auto) 0.9 K/mm3 (1.2-5.4) L 04/25/22 04:01 [place] # (Auto) 0.8 K/mm3 (0.0-0.8) 04/25/22 04:01 Eos # (Auto) 0.0 K/mm3 (0.0-0.4) 04/25/22 04:01 Baso # (Auto) 0.0 K/mm3 (0.0-0.1) 04/25/22 04:01 Seg Neutrophils % 81.9 % (40.0-70.0) H 04/25/22 04:01 Seg Neutrophils # 7.7 K/mm3 (1.8-7.7) 04/25/22 04:01 D-Dimer 376.26 ng/mlDDU (0-234) H 04/18/22 09:00 Sodium 146 mmol/L (137-145) H 04/25/22 04:01 Potassium 4.2 mmol/L (3.6-5.0) 04/25/22 04:01 Chloride 102.5 mmol/L (98-107) 04/25/22 04:01 Carbon Dioxide 32 mmol/L (22-30) H 04/25/22 04:01 Anion Gap 16 mmol/L 04/25/22 04:01 BUN 19 mg/dL (9-20) 04/25/22 04:01 Creatinine 0.7 mg/dL (0.8-1.3) L 04/25/22 04:01 Estimated GFR > 60 ml/min 04/25/22 04:01 BUN/Creatinine Ratio 27 % 04/25/22 04:01 Glucose 89 mg/dL (75-100) 04/25/22 04:01 POC Glucose 106 mg/dL (70-105) H 04/26/22 16:49 Calcium 10.0 mg/dL (8.4-10.2) 04/25/22 04:01 Magnesium 2.50 mg/dL (1.7-2.3) H 04/12/22 10:45 Ferritin 1407.0 ng/mL (30.0-300.0) H 04/18/22 09:00 Total Bilirubin 0.70 mg/dL (0.1-1.2) 04/23/22 07:06 AST 34 units/L (5-40) 04/23/22 07:06 ALT 50 units/L (7-56) 04/23/22 07:06 Alkaline Phosphatase 81 units/L (35-129) 04/23/22 07:06 Lactate Dehydrogenase 229 units/L (91-180) H 04/18/22 09:00 C-Reactive Protein 1.10 mg/dL (0.00-1.30) 04/18/22 09:00 Total Protein 5.3 g/dL (6.3-8.2) L 04/23/22 07:06 Albumin 3.3 g/dL (3.9-5) L 04/23/22 07:06 Albumin/Globulin Ratio 1.7 % 04/23/22 07:06 SARS-CoV-2 (PCR) Positive (Negative) A 04/20/22 14:25 [place]/IV: Voiding Method Condom Catheter Active Medications - Current Medications Current Medications: Generic Name Dose Route Start Last Admin Trade Name Freq PRN Reason Stop Dose Admin Acetaminophen 650 mg 04/06/22 15:59 Acetaminophen 325 Mg Tab PO Q4H PRN Pain MILD(1-3)/Fever >100.5/MCKENZIE Albuterol 2.5 mg 04/06/22 15:59 Albuterol 2.5 Mg/3 Ml Nebu IH Q4HRT PRN Shortness Of Breath Lipase/Protease/Amylase 1 each 04/15/22 16:02 Lipase 10,500/Protease 25,000/Amylase 43,750 (Units) Dr Barrios FEEDTUBE PRN PRN For Clogged Feeding Tube Aspirin 81 mg 04/07/22 10:00 04/26/22 10:14 Aspirin Ec 81 Mg Tab PO Not Given QDAY GALINA Cholecalciferol 1,000 unit 04/07/22 10:00 04/26/22 10:14 Cholecalciferol (Vit D3) 1000 Unit (25 Mcg) Tab PO Not Given QDAY GALINA Clonidine HCl 0.3 mg 04/26/22 14:00 04/26/22 13:41 Clonidine Tts 0.3 Mg/24 Hr Patch TD 0.3 mg Tu@1400 GALINA Administration Dexamethasone 6 mg 04/19/22 16:00 04/26/22 10:21 Dexamethasone 2 Mg Tab PO 04/28/22 10:01 Not Given Q24HR [facility] Fluticasone Propionate 50 mcg 04/07/22 10:00 04/26/22 10:14 Fluticasone Propionate Nasal [place] 16 Gm NS Not Given QDAY GALINA Heparin Sodium (Porcine) 5,000 unit 04/06/22 22:00 04/26/22 09:52 Heparin 5,000 Unit/1 Ml Vial SUB-Q 5,000 unit Q12HR GALINA Administration Hydralazine HCl 10 mg 04/22/22 15:07 04/26/22 10:19 Hydralazine 20 Mg/1 Ml Inj IV 10 mg Q4H PRN Administration Hypertension Hydromorphone HCl 0.5 mg 04/06/22 15:59 04/26/22 10:19 Hydromorphone 0.5 Mg/0.5 Ml Inj IV 0.5 mg Q23H PRN Administration Pain , Severe (7-10) Dextrose/Sodium Chloride 1,000 mls @ 75 mls/hr 04/25/22 14:00 04/26/22 05:27 D5/0.45ns IV 75 mls/hr DIRECT GALINA Administration Lorazepam 0.5 mg 04/08/22 15:00 04/25/22 19:56 Lorazepam 2 Mg/Ml Vial IV 0.5 mg Q23H PRN Administration Agitation Melatonin 5 mg 04/07/22 11:21 04/11/22 23:27 Melatonin 5 Mg Tab PO 5 mg QHS PRN Administration Sleep Mirtazapine 15 mg 04/11/22 22:00 04/25/22 21:11 Mirtazapine 15 Mg Tab PO Not Given QHS GALINA Ondansetron HCl 4 mg 04/06/22 15:59 Ondansetron 4 Mg/2 Ml Inj IV Q8H PRN Nausea And Vomiting Oxycodone/Acetaminophen 1 tab 04/06/22 15:59 04/13/22 22:21 Oxycodone /Acetaminophen 5-325mg Tab PO 1 tab Q16H PRN Administration Pain, Moderate (4-6) Quetiapine Fumarate 25 mg 04/21/22 14:00 04/26/22 13:33 Quetiapine 25 Mg Tab PO Not Given TID GALINA Simple Syrup 15 ml 04/15/22 16:02 Simple Syrup 15 Ml FEEDTUBE PRN PRN Hypoglycemia Simple Syrup 30 ml 04/15/22 16:02 Simple Syrup 15 Ml FEEDTUBE PRN PRN Hypoglycemia Sodium Bicarbonate 325 mg 04/15/22 16:02 Sodium Bicarbonate 325 Mg Tab FEEDTUBE PRN PRN For Clogged Feeding Tube Sodium Chloride 10 ml 04/06/22 22:00 04/26/22 13:42 Sodium Chloride 0.9% 10 Ml Flush Syringe IV 10 ml BID GALINA Administration Sodium Chloride 10 ml 04/06/22 15:59 04/25/22 19:56 Sodium Chloride 0.9% 10 Ml Flush Syringe IV 10 ml PRN PRN Administration LINE FLUSH Tiotropium [place] 1 puff 04/07/22 10:00 04/26/22 11:46 Tiotropium 18 Mcg Cap Inhalation IH Not Given QDAY GALINA Valproic Acid 500 mg 04/19/22 22:00 04/26/22 09:52 Valproic Acid 250 Mg/5 Ml Oral Liqd PO 500 mg BID GALINA Administration Nutrition/Malnutrition Assess - Dietary Evaluation Nutrition/Malnutrition Findings: Nutrition Notes Start: 04/07/22 15:47 Freq: Status: Active Protocol: Document 04/25/22 11:37 FARIBA (Rec: 04/25/22 12:06 FARIBA [id number]) Nutrition Notes Initial or Follow up Reassessment Current Diagnosis Diabetes,Hypertension, Malnutrition Other Pertinent Diagnosis COVID-19, Debility, Dehydration, Metabolic Encephalopathy, Dementia ... Current Diet Pureed Diet (since L 04/16) D Suppl (from D 04/25. Labs/Tests 04/25: Na 146, CO2 32, Crea 0. 7. Pertinent Medications 04/25: Vit D3, others nutritionally unremarkable. Height 5 ft 2 in Weight 42.3 kg [place] Body Weight (kg) 53.63 BMI 17.0 Weight change and time frame 0.6 Kg body weight loss in 1 week reported. Weight Status Underweight Subjective/Other Information RD consult for routine F/U on dietary advancement. Pt refusing to eat and spitting foods and medications , Pt's PO intake of meals has been Negligible (0%), according to ADL notes and RN notes. I will prescribe Dietary Supplementation to compensate for poor or insufficient PO intake of meals; however, I recommend restart TF to support Pt's energy/protein needs. Pt is on Nasal Cannula, O2 saturation @ 100%, according to Physical Assessment History notes. Pt remains confused, not following xommands, on restrains and still awaiting for SNF placement. Percent of energy/protein needs met: Prescribed Pureed Diet provides for energy/protein needs (1,804 Kcal/77 g) during LOS; additionally, Dietary Supplements will compensate for possible poor or insufficient PO intake of meals with 660 Kcal and 30 g of protein. Burn Absent Trauma Absent GI Symptoms None Difficulty In Chewing Food Allergy Yes Skin Integrity/Comment Assessment WNL. Current % PO Negligible Minimum of two criteria No Fluid Accumulation N/A Reduced Snow Remover Strength N/A (non-severe) Protein-Calorie Malnutrition N\A #1 Nutrition Diagnosis Inadequate protein-energy intake Comments: Pt refusing to eat and spitting foods and medications , Pt's PO intake of meals has been Negligible (0%), according to ADL notes and RN notes. Diagnosis Progress(for reassessment Worsened documentation) Is patient on ventilator? No Is Patient Ambulatory and/or Out of Bed Yes REE-([place]-St. Jeor-ambulatory/OOB) [ 1354.925 [id number]] Kcal/Kg value to use for calculation 30 Approximate Energy Requirements Using 1269 kcal/Kg Calculation Used for Recommendations Kcal/kg Additional Notes Protein: 1-1.2 g/Kg IBW; 54-65 g/day. Fluids: 1 ml/Kcal, or as per MD. Nutrition Intervention Change Diet Order: Continue Pureed Diet. Nutrition Support: When pertinent, restart TF- Glucerna 1.2 Joss @ 45 ml/hr. Flush: 70 ml water Q 4 hr, or as per MD. Add Supplement/Snack (indicate name/kcal Restart 8 fl oz Glucerna; TID. /protein ) Provides kCal: 660 Provides Protein (gm) 30 Goal #1 Adjust the dietary intervention to better serve Pt's needs and clinical conditions during LOS. Goal #2 Compensate, through dietary supplementation, for possible poor or insufficient PO intake of meals during LOS. Follow-Up By: 05/02/22 Additional Comments Continue monitoring food tolerance, %PO intake of meals and ONS, and BM.
[2022-04-26] MEDS ORDERED: SODIUM BICARBONATE 325 MG TAB FEEDTUBE PRN (18:00)
[2022-04-26] MEDS ORDERED: LIPASE 10,500/PROTEASE 25,000/AMYLASE 43,750 (UNITS) DR CAP FEEDTUBE PRN (18:00)
[2022-04-26] MEDS ORDERED: SIMPLE SYRUP 15 ML FEEDTUBE PRN ×2 (18:00)
--- NOTE | 2022-04-26 18:04 | Progress Note ---
Assessment and Plan Assessment and plan: 76 YO Male H with Vascular Dementia with Behavioral disturbance, Cerebral Atherosclerosis, DM, BPH, HTN, Malnutrition, Coronavirus Infection. Patient remains confused, lethargic with diminished cognition. Patient remains at baseline level of cognition and function. Hospice team consulted. Case varun sharma consulted. COVID-19 positive x2 discharge planning to senior care facility with hospice care. -- COVID-19 positive 03/31/2022 and 04/13/2022 coronavirus infection Coronavirus protocol: vitamin C therapy, vitamin D therapy, zinc therapy, supplemental oxygen, pulse oximetry, prophylactic anticoagulation. On dexamethasone as intermittently needed O2 Follow-up inflammatory markers, ID consulted: recommended supportive care --HTN, added clonidine patch --Hypernatremia; Free water via Dobbhoff, monitor electrolytes -Vascular dementia with behavioral disturbance Verbal prompting, verbal redirection, benzodiazepine therapy as clinically indicated. --Cerebral atherosclerosis Risk factor reduction, antiplatelet therapy, supportive care. --General debility Bed alarm, fall precautions, supportive care. Physical therapy occupational therapy -- Mild to moderate malnutrition Increase protein intake, dietary supplementation when awake and alert only. Aspiration precautions. --Nicotine dependence Smoking cessation counseled, supportive care, behavior change counseled, pulse 50 minutes. --Volume depletion/dehydration IV fluids and supportive care, increase oral fluids --Metabolic encephalopathy Multifactorial , underlying dementia , malnutrition , advanced age COVID-19 infection , psych problems Treat underlying cause and supportive care --DVT prophylaxis SCD to bilateral extremities while in bed, prophylactic anticoagulation Hospital course: 04/13/2022; patient is lethargic sleepy, restraint for safety Continue current management, psych evaluation noted and appreciated 04/14/2022; patient is more alert today trying to pull , agitated On restraints, refusing to eat, consider Dobbhoff placement for tube feeding if needed 04/15/2022; COVID-19 positive[ 03/31 and 04/13] Check inflammatory markers, ID consulted Patient is refusing medications and diet Confused and agitated, Dobbhoff placement and tube feeding per protocol 04/16/2022; patient is more alert and awake Tolerating liquids, will advance the diet as tolerated Check physical therapy occupational therapy evaluation and recommendations DC planning per case management 04/17/2022; patient is on pured diet, Will advance the diet as tolerated 04/18/2022; recommend hospice, try to call next of kin the daughter many times Unable to reach, hospice consult inpatient versus home hospice versus SNF with hospice 04/19: Patient remains on restraint and confused. He is on 2 L nasal cannula O2. We will start on dexamethasone for 10 days. We will also Low-dose of Seroquel for agitation and anxiety. Continue to follow clinically, waiting on SNF placement 04/20: Cont seroquel, restraint as needed. follow clinically. still positive for Covid, cont dexamethasone, pending placement. No family info in the file. 04/21: remains restraint, patient o RA today, does not follow commend, added clonidine path for HTN, stopped iv fluid.follow clinically. 04/22: Patient remains in restraints. Patient currently on room air with saturations at 96%. Patient remains confused and does not follow commands. Blood pressure much better controlled. Continue current regimen. Please review case management notes from 04/20. Caregiver currently unable to accept the patient at home until they find a place that can meet his needs. 04/23: Patient remains confused. Continue current regimen. Awaiting placement. 04/24: Continue dexamethasone and supplemental O2. Patient currently requiring 4 L O2 with saturations of 99%. Patient remains confused. Psychiatry recommends valproic acid, Remeron and Seroquel. Case management reports patient has not received any acceptances to retirement. Patient previously lived alone in an RV. At this time, patient is unable to live alone and caregiver is unable to care for the patient until they find a place that can meet his needs. 04/25: Continue dexamethasone and supplemental O2. Patient remains on 4 L O2 w ith saturations of 99%. Patient remains confused and does not follow commands. Patient still requiring restraints. Psychiatry recommends valproic acid, Remeron and Seroquel. Case management reports patient has not received any acceptances to retirement. Patient previously lived alone in an RV. At this time, patient is unable to live alone and caregiver is unable to care for the patient until they find a place that can meet his needs. 6;; pending placement, continue current management Place Dobbhoff feeding tube, nutrition consult for tube feeding Monitor closely and adjust the management as needed 04/27; patient is receiving Dobbhoff feeds, check speech therapy for swallow evaluation If abnormal consider PEG placement, will try to contact family Daughter Lorenza Beauchamp To discuss the goals of treatment and discharge planning Pending retirement with hospice. Hypernatremia Free water via Dobbhoff History Interval history: I have seen and examined the patient at the bedside Patient's chart and medications reviewed Patient is noncommunicative agitated restraint for safety Vital signs noted Hospitalist Physical - Constitutional Vitals: Temp Pulse Resp BP Pulse Ox 99.2 F 73 18 136/54 96 04/26/22 16:52 04/26/22 16:52 04/26/22 16:52 04/26/22 16:52 04/26/22 16:52 General appearance: Present: no acute distress, cachectic, disheveled - EENT Eyes: Present: PERRL, EOM intact - Neck Neck: Present: supple, normal ROM - Respiratory Respiratory effort: normal Respiratory: bilateral: diminished, negative: rales, rhonchi, wheezing - Cardiovascular Rhythm: regular Heart Sounds: Present: S1 & S2 - Extremities Extremities: no ischemia, No edema - Abdominal General gastrointestinal: soft, non-tender, non-distended, normal bowel sounds - Integumentary Integumentary: Present: clear, warm - Psychiatric Psychiatric: other (Noncommunicative) - Neurologic Neurologic: other (Noncommunicative) Results - Labs CBC & Chem 7: 04/25/22 04:01 04/25/22 04:01 Labs: Laboratory Last Values WBC 9.4 K/mm3 (4.5-11.0) 04/25/22 04:01 RBC 4.94 M/mm3 (3.65-5.03) 04/25/22 04:01 Hgb 15.5 gm/dl (11.8-15.2) H 04/25/22 04:01 Hct 44.5 % (35.5-45.6) D 04/25/22 04:01 MCV 90 fl (84-94) 04/25/22 04:01 MCH 31 pg (28-32) 04/25/22 04:01 MCHC 35 % (32-34) H 04/25/22 04:01 RDW 12.8 % (13.2-15.2) L 04/25/22 04:01 Plt Count 146 K/mm3 (140-440) 04/25/22 04:01 Lymph % (Auto) 9.6 % (13.4-35.0) L 04/25/22 04:01 Knott % (Auto) 8.2 % (0.0-7.3) H 04/25/22 04:01 Eos % (Auto) 0.1 % (0.0-4.3) 04/25/22 04:01 Baso % (Auto) 0.2 % (0.0-1.8) 04/25/22 04:01 Lymph # (Auto) 0.9 K/mm3 (1.2-5.4) L 04/25/22 04:01 Knott # (Auto) 0.8 K/mm3 (0.0-0.8) 04/25/22 04:01 Eos # (Auto) 0.0 K/mm3 (0.0-0.4) 04/25/22 04:01 Baso # (Auto) 0.0 K/mm3 (0.0-0.1) 04/25/22 04:01 Seg Neutrophils % 81.9 % (40.0-70.0) H 04/25/22 04:01 Seg Neutrophils # 7.7 K/mm3 (1.8-7.7) 04/25/22 04:01 D-Dimer 376.26 ng/mlDDU (0-234) H 04/18/22 09:00 Sodium 146 mmol/L (137-145) H 04/25/22 04:01 Potassium 4.2 mmol/L (3.6-5.0) 04/25/22 04:01 Chloride 102.5 mmol/L (98-107) 04/25/22 04:01 Carbon Dioxide 32 mmol/L (22-30) H 04/25/22 04:01 Anion Gap 16 mmol/L 04/25/22 04:01 BUN 19 mg/dL (9-20) 04/25/22 04:01 Creatinine 0.7 mg/dL (0.8-1.3) L 04/25/22 04:01 Estimated GFR > 60 ml/min 04/25/22 04:01 BUN/Creatinine Ratio 27 % 04/25/22 04:01 Glucose 89 mg/dL (75-100) 04/25/22 04:01 POC Glucose 106 mg/dL (70-105) H 04/26/22 16:49 Calcium 10.0 mg/dL (8.4-10.2) 04/25/22 04:01 Magnesium 2.50 mg/dL (1.7-2.3) H 04/12/22 10:45 Ferritin 1407.0 ng/mL (30.0-300.0) H 04/18/22 09:00 Total Bilirubin 0.70 mg/dL (0.1-1.2) 04/23/22 07:06 AST 34 units/L (5-40) 04/23/22 07:06 ALT 50 units/L (7-56) 04/23/22 07:06 Alkaline Phosphatase 81 units/L (35-129) 04/23/22 07:06 Lactate Dehydrogenase 229 units/L (91-180) H 04/18/22 09:00 C-Reactive Protein 1.10 mg/dL (0.00-1.30) 04/18/22 09:00 Total Protein 5.3 g/dL (6.3-8.2) L 04/23/22 07:06 Albumin 3.3 g/dL (3.9-5) L 04/23/22 07:06 Albumin/Globulin Ratio 1.7 % 04/23/22 07:06 SARS-CoV-2 (PCR) Positive (Negative) A 04/20/22 14:25 Kaufman/IV: Voiding Method Condom Catheter Active Medications - Current Medications Current Medications: Generic Name Dose Route Start Last Admin Trade Name Freq PRN Reason Stop Dose Admin Acetaminophen 650 mg 04/06/22 15:59 Acetaminophen 325 Mg Tab PO Q4H PRN Pain MILD(1-3)/Fever >100.5/MCKENZIE Albuterol 2.5 mg 04/06/22 15:59 Albuterol 2.5 Mg/3 Ml Nebu IH Q4HRT PRN Shortness Of Breath Lipase/Protease/Amylase 1 each 04/15/22 16:02 Lipase 10,500/Protease 25,000/Amylase 43,750 (Units) Dr Barrios FEEDTUBE PRN PRN For Clogged Feeding Tube Aspirin 81 mg 04/07/22 10:00 04/26/22 10:14 Aspirin Ec 81 Mg Tab PO Not Given QDAY GALINA Cholecalciferol 1,000 unit 04/07/22 10:00 04/26/22 10:14 Cholecalciferol (Vit D3) 1000 Unit (25 Mcg) Tab PO Not Given QDAY GALINA Clonidine HCl 0.3 mg 04/26/22 14:00 04/26/22 13:41 Clonidine Tts 0.3 Mg/24 Hr Patch TD 0.3 mg Tu@1400 GALINA Administration Dexamethasone 6 mg 04/19/22 16:00 04/26/22 10:21 Dexamethasone 2 Mg Tab PO 04/28/22 10:01 Not Given Q24HR GALINA Fluticasone Propionate 50 mcg 04/07/22 10:00 04/26/22 10:14 Fluticasone Propionate Nasal [place] 16 Gm NS Not Given QDAY GALINA Heparin Sodium (Porcine) 5,000 unit 04/06/22 22:00 04/26/22 09:52 Heparin 5,000 Unit/1 Ml Vial SUB-Q 5,000 unit Q12HR GALINA Administration Hydralazine HCl 10 mg 04/22/22 15:07 04/26/22 10:19 Hydralazine 20 Mg/1 Ml Inj IV 10 mg Q4H PRN Administration Hypertension Hydromorphone HCl 0.5 mg 04/26/22 17:59 Hydromorphone 0.5 Mg/0.5 Ml Inj IV Q8H PRN Pain , Severe (7-10) Dextrose/Sodium Chloride 1,000 mls @ 75 mls/hr 04/25/22 14:00 04/26/22 18:01 D5/0.45ns IV 75 mls/hr DIRECT GALINA Administration Lorazepam 0.5 mg 04/08/22 15:00 04/25/22 19:56 Lorazepam 2 Mg/Ml Vial IV 0.5 mg Q23H PRN Administration Agitation Melatonin 5 mg 04/07/22 11:21 04/11/22 23:27 Melatonin 5 Mg Tab PO 5 mg QHS PRN Administration Sleep Mirtazapine 15 mg 04/11/22 22:00 04/25/22 21:11 Mirtazapine 15 Mg Tab PO Not Given QHS [facility] Ondansetron HCl 4 mg 04/06/22 15:59 Ondansetron 4 Mg/2 Ml Inj IV Q8H PRN Nausea And Vomiting Oxycodone/Acetaminophen 1 tab 04/06/22 15:59 04/13/22 22:21 Oxycodone /Acetaminophen 5-325mg Tab PO 1 tab Q16H PRN Administration Pain, Moderate (4-6) Quetiapine Fumarate 25 mg 04/21/22 14:00 04/26/22 13:33 Quetiapine 25 Mg Tab PO Not Given TID GALINA Simple Syrup 15 ml 04/15/22 16:02 Simple Syrup 15 Ml FEEDTUBE PRN PRN Hypoglycemia Simple Syrup 30 ml 04/15/22 16:02 Simple Syrup 15 Ml FEEDTUBE PRN PRN Hypoglycemia Sodium Bicarbonate 325 mg 04/15/22 16:02 Sodium Bicarbonate 325 Mg Tab FEEDTUBE PRN PRN For Clogged Feeding Tube Sodium Chloride 10 ml 04/06/22 22:00 04/26/22 13:42 Sodium Chloride 0.9% 10 Ml Flush Syringe IV 10 ml BID GALINA Administration Sodium Chloride 10 ml 04/06/22 15:59 04/25/22 19:56 Sodium Chloride 0.9% 10 Ml Flush Syringe IV 10 ml PRN PRN Administration LINE FLUSH Tiotropium [place] 1 puff 04/07/22 10:00 04/26/22 11:46 Tiotropium 18 Mcg Cap Inhalation IH Not Given QDAY GALINA Valproic Acid 500 mg 04/19/22 22:00 04/26/22 09:52 Valproic Acid 250 Mg/5 Ml Oral Liqd PO 500 mg BID GALINA Administration Nutrition/Malnutrition Assess - Dietary Evaluation Nutrition/Malnutrition Findings: Nutrition Notes Start: 04/07/22 15:47 Freq: Status: Active Protocol: Document 04/25/22 11:37 FARIBA (Rec: 04/25/22 12:06 FARIBA [id number]) Nutrition Notes Initial or Follow up Reassessment Current Diagnosis Diabetes,Hypertension, Malnutrition Other Pertinent Diagnosis COVID-19, Debility, Dehydration, Metabolic Encephalopathy, Dementia ... Current Diet Pureed Diet (since L 04/16) D Suppl (from D 04/25. Labs/Tests 04/25: Na 146, CO2 32, Crea 0. 7. Pertinent Medications 04/25: Vit D3, others nutritionally unremarkable. Height 5 ft 2 in Weight 42.3 kg [place] Body Weight (kg) 53.63 BMI 17.0 Weight change and time frame 0.6 Kg body weight loss in 1 week reported. Weight Status Underweight Subjective/Other Information RD consult for routine F/U on dietary advancement. Pt refusing to eat and spitting foods and medications , Pt's PO intake of meals has been Negligible (0%), according to ADL notes and RN notes. I will prescribe Dietary Supplementation to compensate for poor or insufficient PO intake of meals; however, I recommend restart TF to support Pt's energy/protein needs. Pt is on Nasal Cannula, O2 saturation @ 100%, according to Physical Assessment History notes. Pt remains confused, not following xommands, on restrains and still awaiting for SNF placement. Percent of energy/protein needs met: Prescribed Pureed Diet provides for energy/protein needs (1,804 Kcal/77 g) during LOS; additionally, Dietary Supplements will compensate for possible poor or insufficient PO intake of meals with 660 Kcal and 30 g of protein. Burn Absent Trauma Absent GI Symptoms None Difficulty In Chewing Food Allergy Yes Skin Integrity/Comment Assessment WNL. Current % PO Negligible Minimum of two criteria No Fluid Accumulation N/A Reduced Hvac Engineer Strength N/A (non-severe) Protein-Calorie Malnutrition N\A #1 Nutrition Diagnosis Inadequate protein-energy intake Comments: Pt refusing to eat and spitting foods and medications , Pt's PO intake of meals has been Negligible (0%), according to ADL notes and RN notes. Diagnosis Progress(for reassessment Worsened documentation) Is patient on ventilator? No Is Patient Ambulatory and/or Out of Bed Yes REE-([place]-ambulatory/OOB) [ 1354.925 NUTR.[id number]] Kcal/Kg value to use for calculation 30 Approximate Energy Requirements Using 1269 kcal/Kg Calculation Used for Recommendations Kcal/kg Additional Notes Protein: 1-1.2 g/Kg IBW; 54-65 g/day. Fluids: 1 ml/Kcal, or as per MD. Nutrition Intervention Change Diet Order: Continue Pureed Diet. Nutrition Support: When pertinent, restart TF- Glucerna 1.2 Joss @ 45 ml/hr. Flush: 70 ml water Q 4 hr, or as per MD. Add Supplement/Snack (indicate name/kcal Restart 8 fl oz Glucerna; TID. /protein ) Provides kCal: 660 Provides Protein (gm) 30 Goal #1 Adjust the dietary intervention to better serve Pt's needs and clinical conditions during LOS. Goal #2 Compensate, through dietary supplementation, for possible poor or insufficient PO intake of meals during LOS. Follow-Up By: 05/02/22 Additional Comments Continue monitoring food tolerance, %PO intake of meals and ONS, and BM.
[2022-04-26] MEDS: LORazepam 2 MG/ML VIAL IV PRN (18:58)
--- NOTE | 2022-04-26 19:05 | XRay Report ---
ABDOMEN 1 VIEW(S) INDICATION / CLINICAL INFORMATION: verify placement ofr dobhoff. COMPARISON: 04/15/2022 FINDINGS: TUBES / LINES: Feeding tube is within the stomach with tip at the fundus. BOWEL GAS PATTERN: No significant abnormality. FREE AIR / EXTRALUMINAL GAS: None seen. ADDITIONAL FINDINGS: No significant additional findings. IMPRESSION: 1. Feeding tube in the proximal stomach. Signer Name: James English MD Signed: 04/26/2022 7:01 PM Workstation Name: [id number]
[2022-04-26] MEDS: MIRTAZAPINE 15 MG TAB PO SCH (21:11)
[2022-04-27] MEDS: D5W/0.45% NACL 1,000 ML IV SCH ×2 (05:46→17:48)
[2022-04-27] MEDS: QUEtiapine 25 MG TAB PO SCH ×3 (08:00→21:38)
[2022-04-27] MEDS: HEPARIN 5,000 UNIT/1 ML VIAL SUB-Q SCH ×2 (09:00→21:38)
[2022-04-27] MEDS: DEXAMETHASONE 2 MG TAB PO SCH (09:01)
[2022-04-27] MEDS: VALPROIC ACID 250 MG/5 ML ORAL LIQD PO SCH ×2 (09:01→21:38)
[2022-04-27] MEDS: CHOLECALCIFEROL (VIT D3) 1000 UNIT (25 mcg) TAB PO SCH (09:01)
[2022-04-27] MEDS: ASPIRIN EC 81 MG TAB PO SCH (09:01)
[2022-04-27] MEDS: FLUTICASONE PROPIONATE NASAL SPRAY 16 GM NS SCH (09:02)
[2022-04-27] MEDS: TIOTROPIUM 18 MCG CAP INHALATION IH SCH (13:26)
[2022-04-27] MEDS: hydrALAZINE 20 MG/1 ML INJ IV PRN (13:50)
[2022-04-27] MEDS: MIRTAZAPINE 15 MG TAB PO SCH (21:38)
--- NOTE | 2022-04-28 09:15 | Progress Note ---
Assessment and Plan Assessment and plan: 76 YO Male H with Vascular Dementia with Behavioral disturbance, Cerebral Atherosclerosis, DM, BPH, HTN, Malnutrition, Coronavirus Infection. Patient remains confused, lethargic with diminished cognition. Patient remains at baseline level of cognition and function. Hospice team consulted. Case varun sharma consulted. COVID-19 positive x2 discharge planning to nursing home facility with hospice care. -- COVID-19 positive 03/31/2022 and 04/13/2022 coronavirus infection Coronavirus protocol: vitamin C therapy, vitamin D therapy, zinc therapy, supplemental oxygen, pulse oximetry, prophylactic anticoagulation. On dexamethasone as intermittently needed O2 Follow-up inflammatory markers, ID consulted: recommended supportive care --HTN, added clonidine patch --Hypernatremia; Free water via Dobbhoff, monitor electrolytes -Vascular dementia with behavioral disturbance Verbal prompting, verbal redirection, benzodiazepine therapy as clinically indicated. --Cerebral atherosclerosis Risk factor reduction, antiplatelet therapy, supportive care. --General debility Bed alarm, fall precautions, supportive care. Physical therapy occupational therapy -- Mild to moderate malnutrition Increase protein intake, dietary supplementation when awake and alert only. Aspiration precautions. --Nicotine dependence Smoking cessation counseled, supportive care, behavior change counseled, pulse 50 minutes. --Volume depletion/dehydration IV fluids and supportive care, increase oral fluids --Metabolic encephalopathy Multifactorial , underlying dementia , malnutrition , advanced age COVID-19 infection , psych problems Treat underlying cause and supportive care --DVT prophylaxis SCD to bilateral extremities while in bed, prophylactic anticoagulation Hospital course: 04/13/2022; patient is lethargic sleepy, restraint for safety Continue current management, psych evaluation noted and appreciated 04/14/2022; patient is more alert today trying to pull , agitated On restraints, refusing to eat, consider Dobbhoff placement for tube feeding if needed 04/15/2022; COVID-19 positive[ 03/31 and 04/13] Check inflammatory markers, ID consulted Patient is refusing medications and diet Confused and agitated, Dobbhoff placement and tube feeding per protocol 04/16/2022; patient is more alert and awake Tolerating liquids, will advance the diet as tolerated Check physical therapy occupational therapy evaluation and recommendations DC planning per case management 04/17/2022; patient is on pured diet, Will advance the diet as tolerated 04/18/2022; recommend hospice, try to call next of kin the daughter many times Unable to reach, hospice consult inpatient versus home hospice versus SNF with hospice 04/19: Patient remains on restraint and confused. He is on 2 L nasal cannula O2. We will start on dexamethasone for 10 days. We will also Low-dose of Seroquel for agitation and anxiety. Continue to follow clinically, waiting on SNF placement 04/20: Cont seroquel, restraint as needed. follow clinically. still positive for Covid, cont dexamethasone, pending placement. No family info in the file. 04/21: remains restraint, patient o RA today, does not follow commend, added clonidine path for HTN, stopped iv fluid.follow clinically. 04/22: Patient remains in restraints. Patient currently on room air with saturations at 96%. Patient remains confused and does not follow commands. Blood pressure much better controlled. Continue current regimen. Please review case management notes from 04/20. Caregiver currently unable to accept the patient at home until they find a place that can meet his needs. 04/23: Patient remains confused. Continue current regimen. Awaiting placement. 04/24: Continue dexamethasone and supplemental O2. Patient currently requiring 4 L O2 with saturations of 99%. Patient remains confused. Psychiatry recommends valproic acid, Remeron and Seroquel. Case management reports patient has not received any acceptances to jail. Patient previously lived alone in an RV. At this time, patient is unable to live alone and caregiver is unable to care for the patient until they find a place that can meet his needs. 04/25: Continue dexamethasone and supplemental O2. Patient remains on 4 L O2 w ith saturations of 99%. Patient remains confused and does not follow commands. Patient still requiring restraints. Psychiatry recommends valproic acid, Remeron and Seroquel. Case management reports patient has not received any acceptances to jail. Patient previously lived alone in an RV. At this time, patient is unable to live alone and caregiver is unable to care for the patient until they find a place that can meet his needs. 6;; pending placement, continue current management Place Dobbhoff feeding tube, nutrition consult for tube feeding Monitor closely and adjust the management as needed 04/27; patient is receiving Dobbhoff feeds, check speech therapy for swallow evaluation If abnormal consider PEG placement, will try to contact family Daughter Lorenza Beauchamp To discuss the goals of treatment and discharge planning Pending jail with hospice. Hypernatremia Free water via Dobbhoff 04/28/2022; speech evaluated the patient, patient is unable to follow swallow eval Patient needs PEG placement, however no family available to give consent Case management to assist with dressing any family, if not available will check with the ethics committee For assistance. Difficult to discharge/placement as patient has no next of kin available. History Interval history: I have seen and examined the patient at the bedside Patient's chart and medications reviewed No new events reported by the nursing Patient is confused and restrained for safety On Dobbhoff feeds No family available Vital signs noted Hospitalist Physical - Constitutional Vitals: Temp Pulse Resp BP Pulse Ox 98.3 F 120 H 20 150/70 95 04/28/22 05:15 04/28/22 05:15 04/28/22 05:15 04/28/22 05:15 04/28/22 05:15 General appearance: Present: no acute distress, cachectic, disheveled - EENT Eyes: Present: PERRL, EOM intact - Neck Neck: Present: supple, normal ROM - Respiratory Respiratory effort: normal Respiratory: bilateral: diminished, negative: rales, rhonchi, wheezing - Cardiovascular Rhythm: regular Heart Sounds: Present: S1 & S2 - Extremities Extremities: no ischemia, No edema - Abdominal General gastrointestinal: soft, non-tender, non-distended, normal bowel sounds - Integumentary Integumentary: Present: clear, warm - Psychiatric Psychiatric: other (Noncommunicative and unresponsive) - Neurologic Neurologic: other (Noncommunicative 1 encephalopathy) Results - Labs CBC & Chem 7: 04/25/22 04:01 04/25/22 04:01 Labs: Laboratory Last Values WBC 9.4 K/mm3 (4.5-11.0) 04/25/22 04:01 RBC 4.94 M/mm3 (3.65-5.03) 04/25/22 04:01 Hgb 15.5 gm/dl (11.8-15.2) H 04/25/22 04:01 Hct 44.5 % (35.5-45.6) D 04/25/22 04:01 MCV 90 fl (84-94) 04/25/22 04:01 MCH 31 pg (28-32) 04/25/22 04:01 MCHC 35 % (32-34) H 04/25/22 04:01 RDW 12.8 % (13.2-15.2) L 04/25/22 04:01 Plt Count 146 K/mm3 (140-440) 04/25/22 04:01 Lymph % (Auto) 9.6 % (13.4-35.0) L 04/25/22 04:01 [place]ard % (Auto) 8.2 % (0.0-7.3) H 04/25/22 04:01 Eos % (Auto) 0.1 % (0.0-4.3) 04/25/22 04:01 Baso % (Auto) 0.2 % (0.0-1.8) 04/25/22 04:01 Lymph # (Auto) 0.9 K/mm3 (1.2-5.4) L 04/25/22 04:01 [place]ard # (Auto) 0.8 K/mm3 (0.0-0.8) 04/25/22 04:01 Eos # (Auto) 0.0 K/mm3 (0.0-0.4) 04/25/22 04:01 Baso # (Auto) 0.0 K/mm3 (0.0-0.1) 04/25/22 04:01 Seg Neutrophils % 81.9 % (40.0-70.0) H 04/25/22 04:01 Seg Neutrophils # 7.7 K/mm3 (1.8-7.7) 04/25/22 04:01 D-Dimer 376.26 ng/mlDDU (0-234) H 04/18/22 09:00 Sodium 146 mmol/L (137-145) H 04/25/22 04:01 Potassium 4.2 mmol/L (3.6-5.0) 04/25/22 04:01 Chloride 102.5 mmol/L (98-107) 04/25/22 04:01 Carbon Dioxide 32 mmol/L (22-30) H 04/25/22 04:01 Anion Gap 16 mmol/L 04/25/22 04:01 BUN 19 mg/dL (9-20) 04/25/22 04:01 Creatinine 0.7 mg/dL (0.8-1.3) L 04/25/22 04:01 Estimated GFR > 60 ml/min 04/25/22 04:01 BUN/Creatinine Ratio 27 % 04/25/22 04:01 Glucose 89 mg/dL (75-100) 04/25/22 04:01 POC Glucose 114 mg/dL (70-105) H 04/28/22 05:11 Calcium 10.0 mg/dL (8.4-10.2) 04/25/22 04:01 Magnesium 2.50 mg/dL (1.7-2.3) H 04/12/22 10:45 Ferritin 1407.0 ng/mL (30.0-300.0) H 04/18/22 09:00 Total Bilirubin 0.70 mg/dL (0.1-1.2) 04/23/22 07:06 AST 34 units/L (5-40) 04/23/22 07:06 ALT 50 units/L (7-56) 04/23/22 07:06 Alkaline Phosphatase 81 units/L (35-129) 04/23/22 07:06 Lactate Dehydrogenase 229 units/L (91-180) H 04/18/22 09:00 C-Reactive Protein 1.10 mg/dL (0.00-1.30) 04/18/22 09:00 Total Protein 5.3 g/dL (6.3-8.2) L 04/23/22 07:06 Albumin 3.3 g/dL (3.9-5) L 04/23/22 07:06 Albumin/Globulin Ratio 1.7 % 04/23/22 07:06 SARS-CoV-2 (PCR) Positive (Negative) A 04/20/22 14:25 Kaufman/IV: Voiding Method Incontinent Active Medications - Current Medications Current Medications: Generic Name Dose Route Start Last Admin Trade Name Freq PRN Reason Stop Dose Admin Acetaminophen 650 mg 04/06/22 15:59 Acetaminophen 325 Mg Tab PO Q4H PRN Pain MILD(1-3)/Fever >100.5/MCKENZIE Albuterol 2.5 mg 04/06/22 15:59 Albuterol 2.5 Mg/3 Ml Nebu IH Q4HRT PRN Shortness Of Breath Lipase/Protease/Amylase 1 each 04/15/22 16:02 Lipase 10,500/Protease 25,000/Amylase 43,750 (Units) Dr Cap FEEDTUBE PRN PRN For Clogged Feeding Tube Lipase/Protease/Amylase 1 each 04/26/22 18:00 Lipase 10,500/Protease 25,000/Amylase 43,750 (Units) Dr Barrios FEEDTUBE PRN PRN For Clogged Feeding Tube Aspirin 81 mg 04/07/22 10:00 04/27/22 09:01 Aspirin Ec 81 Mg Tab PO 81 mg QDAY GALINA Administration Cholecalciferol 1,000 unit 04/07/22 10:00 04/27/22 09:01 Cholecalciferol (Vit D3) 1000 Unit (25 Mcg) Tab PO 1,000 unit QDAY GALINA Administration Clonidine HCl 0.3 mg 04/26/22 14:00 04/26/22 13:41 Clonidine Tts 0.3 Mg/24 Hr Patch TD 0.3 mg Tu@1400 GALINA Administration Dexamethasone 6 mg 04/19/22 16:00 04/27/22 09:01 Dexamethasone 2 Mg Tab PO 04/28/22 10:01 6 mg Q24HR GALINA Administration Fluticasone Propionate 50 mcg 04/07/22 10:00 04/27/22 09:02 Fluticasone Propionate Nasal [place] 16 Gm NS 50 mcg QDAY GALINA Administration Heparin Sodium (Porcine) 5,000 unit 04/06/22 22:00 04/27/22 21:38 Heparin 5,000 Unit/1 Ml Vial SUB-Q 5,000 unit Q12HR GALINA Administration Hydralazine HCl 10 mg 04/22/22 15:07 04/27/22 13:50 Hydralazine 20 Mg/1 Ml Inj IV 10 mg Q4H PRN Administration Hypertension Hydromorphone HCl 0.5 mg 04/26/22 17:59 04/26/22 18:07 Hydromorphone 0.5 Mg/0.5 Ml Inj IV 0.5 mg Q8H PRN Administration Pain , Severe (7-10) Lorazepam 0.5 mg 04/26/22 18:42 04/26/22 18:58 Lorazepam 2 Mg/Ml Vial IV 0.5 mg Q6H PRN Administration Agitation Melatonin 5 mg 04/07/22 11:21 04/11/22 23:27 Melatonin 5 Mg Tab PO 5 mg QHS PRN Administration Sleep Mirtazapine 15 mg 04/11/22 22:00 04/27/22 21:38 Mirtazapine 15 Mg Tab PO 15 mg QHS GALINA Administration Ondansetron HCl 4 mg 04/06/22 15:59 Ondansetron 4 Mg/2 Ml Inj IV Q8H PRN Nausea And Vomiting Oxycodone/Acetaminophen 1 tab 04/06/22 15:59 04/13/22 22:21 Oxycodone /Acetaminophen 5-325mg Tab PO 1 tab Q16H PRN Administration Pain, Moderate (4-6) Quetiapine Fumarate 25 mg 04/21/22 14:00 04/27/22 21:38 Quetiapine 25 Mg Tab PO 25 mg TID GALINA Administration Simple Syrup 15 ml 04/15/22 16:02 Simple Syrup 15 Ml FEEDTUBE PRN PRN Hypoglycemia Simple Syrup 30 ml 04/15/22 16:02 Simple Syrup 15 Ml FEEDTUBE PRN PRN Hypoglycemia Simple Syrup 15 ml 04/26/22 18:00 Simple Syrup 15 Ml FEEDTUBE PRN PRN Hypoglycemia Simple Syrup 30 ml 04/26/22 18:00 Simple Syrup 15 Ml FEEDTUBE PRN PRN Hypoglycemia Sodium Bicarbonate 325 mg 04/15/22 16:02 Sodium Bicarbonate 325 Mg Tab FEEDTUBE PRN PRN For Clogged Feeding Tube Sodium Bicarbonate 325 mg 04/26/22 18:00 Sodium Bicarbonate 325 Mg Tab FEEDTUBE PRN PRN For Clogged Feeding Tube Sodium Chloride 10 ml 04/06/22 22:00 04/27/22 21:38 Sodium Chloride 0.9% 10 Ml Flush Syringe IV 10 ml BID GALINA Administration Sodium Chloride 10 ml 04/06/22 15:59 04/25/22 19:56 Sodium Chloride 0.9% 10 Ml Flush Syringe IV 10 ml PRN PRN Administration LINE FLUSH Tiotropium Belva 1 puff 04/07/22 10:00 04/27/22 13:26 Tiotropium 18 Mcg Cap Inhalation IH Not Given QDAY GALINA Valproic Acid 500 mg 04/19/22 22:00 04/27/22 21:38 Valproic Acid 250 Mg/5 Ml Oral Liqd PO 500 mg BID GALINA Administration Nutrition/Malnutrition Assess - Dietary Evaluation Nutrition/Malnutrition Findings: Nutrition Notes Start: 04/07/22 15: 47 Freq: Status: Active Protocol: Document 04/26/22 18:32 FARIBA (Rec: 04/26/22 18:42 FARIBA [id number]) Nutrition Notes Initial or Follow up Brief Note Current Diagnosis Diabetes,Hypertension, Malnutrition Other Pertinent Diagnosis COVID-19, Debility, Dehydration, Metabolic Encephalopathy, Dementia ... Current Diet TF-Glucerna 1.2 Joss @ 45 ml/hr (from B 04/27). Height 5 ft 2 in Weight 42.3 kg [place] Body Weight (kg) 53.63 BMI 17.0 Weight change and time frame No body weight change reported in 1 day. Weight Status Underweight Subjective/Other Information RD consult for write/mange TF. I will prescribe and order TF to provide Pt with at least 75 % of energy/protein needs. Percent of energy/protein needs met: Prescribed TF-Glucerna 1.2 Joss @ 45 ml/hr provides for energy/protein needs (1,285 Kcal/64 g) during LOS, 100% Kcal; 100% AA. #1 Nutrition Diagnosis Inadequate protein-energy intake Comments: I will prescribe and order TF to provide Pt with at least 75 % of energy/protein needs. Diagnosis Progress(for reassessment Continues documentation) Is patient on ventilator? No Is Patient Ambulatory and/or Out of Bed No REE-([facility]-confined to bed) 1257.300 Calculation Used for Recommendations [facility] Additional Notes Protein: 1-1.2 g/Kg IBW; 54-65 g/day. Fluids: 1 ml/Kcal, or as per MD. Nutrition Intervention Change Diet Order: Discontinued. Nutrition Support: Start TF-Glucerna 1.2 Joss @ 45 ml/hr. Flush: 70 ml water Q 4 hr, or as per MD. Kcal 1,285 Protein (gm) 64 Carbohydrates (gm) 123 Fat (gm) 64 Fluid (mL) 862 Fiber (gm) 17 % RDI: 100% Kcal; 100% AA. Add Supplement/Snack (indicate name/kcal Discontinued. /protein ) Goal #1 Provide at least 75% of energy /protein needs through Enteral Feeding during LOS. Follow-Up By: 04/28/22 Additional Comments Start monitoring TF tolerance and BM.
[2022-04-28] MEDS: TIOTROPIUM 18 MCG CAP INHALATION IH SCH (09:48)
[2022-04-28] MEDS: HEPARIN 5,000 UNIT/1 ML VIAL SUB-Q SCH ×2 (10:28→22:53)
[2022-04-28] MEDS: ASPIRIN EC 81 MG TAB PO SCH (10:29)
[2022-04-28] MEDS: QUEtiapine 25 MG TAB PO SCH ×3 (10:29→20:50)
[2022-04-28] MEDS: CHOLECALCIFEROL (VIT D3) 1000 UNIT (25 mcg) TAB PO SCH (10:29)
[2022-04-28] MEDS: FLUTICASONE PROPIONATE NASAL SPRAY 16 GM NS SCH (10:33)
[2022-04-28] MEDS: DEXAMETHASONE 2 MG TAB PO SCH (10:33)
[2022-04-28] MEDS: VALPROIC ACID 250 MG/5 ML ORAL LIQD PO SCH ×2 (10:33→22:57)
--- NOTE | 2022-04-28 13:00 | Progress Note ---
Subjective - Reason for Consult Consult date: 04/28/22 Reason for consult: mental health evaluation - Chief Complaint Chief complaint: The patient was seen today with the nurse at the bedside. The patient is alert and confused. He is on bilateral soft restraints,and nasal gastric tube. He mumbles "I'm fine." REVIEW OF SYSTEMS Unable to assess MENTAL STATUS EXAMINATION Unable to assess Diagnoses: Dementia with behavioral disturbances Treatment Plan: Continue valproc acid 500mg BID Continue Remeron 15mg po qhs Continue Seroquel 25mg po TID Medical: Per primary Sitter: Defer to primary Disposition: Do not recommend inpatient psych treatment at this time. Will follow for psych progress and med management Thank you Case staffed with Dr. Hebert Mental Status Exam - Vital signs Last Vital Signs Temp 98.3 F 04/28/22 05:15 Pulse 120 H 04/28/22 05:15 Resp 20 04/28/22 05:15 BP 150/70 04/28/22 05:15 Pulse Ox 95 04/28/22 09:48
--- NOTE | 2022-04-28 22:28 | XRay Report ---
ABDOMEN 1 VIEW 04/28/2022 INDICATION / CLINICAL INFORMATION: Dobhoff placement. COMPARISON: 04/26/2022 FINDINGS: TUBES / LINES: Weighted enteric tube terminates within the stomach. BOWEL GAS PATTERN: No significant abnormality. FREE AIR / EXTRALUMINAL GAS: None seen. ADDITIONAL FINDINGS: No significant additional findings. IMPRESSION: 1. Weighted enteric tube terminates within the stomach. Signer Name: Nba Lazo DO Signed: 04/28/2022 10:24 PM Workstation Name: [id number]
[2022-04-28] MEDS: MIRTAZAPINE 15 MG TAB PO SCH (22:53)
[2022-04-28] MEDS: LORazepam 2 MG/ML VIAL IV PRN (22:54)
[2022-04-29] MEDS: TIOTROPIUM 18 MCG CAP INHALATION IH SCH ×2 (08:25→09:00)
[2022-04-29] MEDS: QUEtiapine 25 MG TAB PO SCH ×3 (10:03→20:16)
[2022-04-29] MEDS: HEPARIN 5,000 UNIT/1 ML VIAL SUB-Q SCH ×2 (10:03→23:03)
[2022-04-29] MEDS: ASPIRIN EC 81 MG TAB PO SCH (10:03)
[2022-04-29] MEDS: CHOLECALCIFEROL (VIT D3) 1000 UNIT (25 mcg) TAB PO SCH (10:03)
[2022-04-29] MEDS: FLUTICASONE PROPIONATE NASAL SPRAY 16 GM NS SCH (10:04)
[2022-04-29] MEDS: VALPROIC ACID 250 MG/5 ML ORAL LIQD PO SCH ×2 (10:09→23:02)
--- NOTE | 2022-04-29 11:44 | Progress Note ---
Subjective - Reason for Consult Consult date: 04/29/22 Reason for consult: agitation - Chief Complaint Chief complaint: The patient was seen today. Tech is at bedside. The patient is in restraints. He is somnolent and doesn't respond when I call his name. The tech says he normally tries to get out of bed and resist until he's medicated. REVIEW OF SYSTEMS Unable to assess MENTAL STATUS EXAMINATION Unable to assess Diagnoses: Dementia with behavioral disturbances Treatment Plan: Continue valproc acid 500mg BID Continue Remeron 15mg po qhs Continue Seroquel 25mg po TID Medical: Per primary Sitter: Defer to primary Disposition: Do not recommend inpatient psych treatment at this time. Will follow for psych progress and med management Thank you Case staffed with Dr. Hebert Mental Status Exam - Vital signs Last Vital Signs Temp 98.2 F 04/29/22 05:41 Pulse 90 04/29/22 05:41 Resp 20 04/29/22 05:41 BP 125/77 04/29/22 05:41 Pulse Ox 99 04/29/22 05:41
--- NOTE | 2022-04-29 13:25 | Progress Note ---
Assessment and Plan Assessment and plan: 76 YO Male H with Vascular Dementia with Behavioral disturbance, Cerebral Atherosclerosis, DM, BPH, HTN, Malnutrition, Coronavirus Infection. Patient remains confused, lethargic with diminished cognition. Patient remains at baseline level of cognition and function. Hospice team consulted. Case varun sharma consulted. COVID-19 positive x2 discharge planning [facility] with hosp[facility] care. -- COVID-19 positive 03/31/2022, 04/13/2022 and, 04/29/2022 Coronavirus protocol: vitamin C therapy, vitamin D therapy, zinc therapy, supplemental oxygen, pulse oximetry, prophylactic anticoagulation. On dexamethasone as intermittently needed O2 Follow-up inflammatory markers, ID consulted: recommended supportive care --HTN, added clonidine patch --Hypernatremia; Free water via Dobbhoff, monitor electrolytes -Vascular dementia with behavioral disturbance Verbal prompting, verbal redirection, benzodiazepine therapy as clinically indicated. --Cerebral atherosclerosis Risk factor reduction, antiplatelet therapy, supportive care. --General debility Bed alarm, fall precautions, supportive care. Physical therapy occupational therapy -- Mild to moderate malnutrition Increase protein intake, dietary supplementation when awake and alert only. Aspiration precautions. --Nicotine dependence Smoking cessation counseled, supportive care, behavior change counseled, pulse 50 minutes. --Volume depletion/dehydration IV fluids and supportive care, increase oral fluids --Metabolic encephalopathy Multifactorial , underlying dementia , malnutrition , advanced age COVID-19 infection , psych problems Treat underlying cause and supportive care --DVT prophylaxis SCD to bilateral extremities while in bed, prophylactic anticoagulation Hospital course: 04/13/2022; patient is lethargic sleepy, restraint for safety Continue current management, psych evaluation noted and appreciated 04/14/2022; patient is more alert today trying to pull , agitated On restraints, refusing to eat, consider Dobbhoff placement for tube feeding if needed 04/15/2022; COVID-19 positive[ 03/31 and 04/13] Check inflammatory markers, ID consulted Patient is refusing medications and diet Confused and agitated, Dobbhoff placement and tube feeding per protocol 04/16/2022; patient is more alert and awake Tolerating liquids, will advance the diet as tolerated Check physical therapy occupational therapy evaluation and recommendations DC planning per case management 04/17/2022; patient is on pured diet, Will advance the diet as tolerated 04/18/2022; recommend hospice, try to call next of kin the daughter many times Unable to reach, hospice consult inpatient versus home hospice versus SNF with hospice 04/19: Patient remains on restraint and confused. He is on 2 L nasal cannula O2. We will start on dexamethasone for 10 days. We will also Low-dose of Seroquel for agitation and anxiety. Continue to follow clinically, waiting on SNF placement 04/20: Cont seroquel, restraint as needed. follow clinically. still positive for Covid, cont dexamethasone, pending placement. No family info in the file. 04/21: remains restraint, patient o RA today, does not follow commend, added clonidine path for HTN, stopped iv fluid.follow clinically. 04/22: Patient remains in restraints. Patient currently on room air with saturations at 96%. Patient remains confused and does not follow commands. Blood pressure much better controlled. Continue current regimen. Please review case management notes from 04/20. Caregiver currently unable to accept the patient at home until they find a place that can meet his needs. 04/23: Patient remains confused. Continue current regimen. Awaiting placement. 04/24: Continue dexamethasone and supplemental O2. Patient currently requiring 4 L O2 with saturations of 99%. Patient remains confused. Psychiatry recommends valproic acid, Remeron and Seroquel. Case management reports patient has not received any acceptances to halfway. Patient previously lived alone in an RV. At this time, patient is unable to live alone and caregiver is unable to care for the patient until they find a place that can meet his needs. 04/25: Continue dexamethasone and supplemental O2. Patient remains on 4 L O2 with saturations of 99%. Patient remains confused and does not follow commands. Patient still requiring restraints. Psychiatry recommends valproic acid, Remeron and Seroquel. Case management reports patient has not received any acceptances to halfway. Patient previously lived alone in an RV. At this time, patient is unable to live alone and caregiver is unable to care for the patient until they find a place that can meet his needs. ; pending placement, continue current management Place Dobbhoff feeding tube, nutrition consult for tube feeding Monitor closely and adjust the management as needed 04/27; patient is receiving Dobbhoff feeds, check speech therapy for swallow evaluation If abnormal consider PEG placement, will try to contact family Daughter Lorenza Beauchamp To discuss the goals of treatment and discharge planning Pending halfway with hospice. Hypernatremia Free water via Dobbhoff 04/28/2022; speech evaluated the patient, patient is unable to follow swallow eval Patient needs PEG placement, however no family available to give consent Case management to assist with dressing any family, if not available will check with the ethics committee For assistance. Difficult to discharge/placement as patient has no next of kin available. 04/29/2022; crooks PCR test third time today's positive. Continue tube feeding, DC planning, no family or contact available History Interval history: Seen and examined the patient at the bedside patient's chart and medications reviewed patient restraint for safety Patient is noncommunicative Vital signs noted Hospitalist Physical - Constitutional Vitals: Temp Pulse Resp BP Pulse Ox 98.2 F 90 20 125/77 94 04/29/22 05:41 04/29/22 05:41 04/29/22 05:41 04/29/22 05:41 04/29/22 10:00 General appearance: Present: no acute distress, cachectic, disheveled - EENT Eyes: Present: PERRL, EOM intact - Neck Neck: Present: supple, normal ROM - Respiratory Respiratory effort: normal Respiratory: bilateral: diminished, negative: rales, rhonchi, wheezing - Cardiovascular Rhythm: regular Heart Sounds: Present: S1 & S2 - Extremities Extremities: no ischemia, No edema - Abdominal General gastrointestinal: soft, non-tender, non-distended, normal bowel sounds - Integumentary Integumentary: Present: clear, warm - Psychiatric Psychiatric: other (Noncommunicative) - Neurologic Neurologic: other (Noncommunicative) Results - Labs CBC & Chem 7: 04/25/22 04:01 04/25/22 04:01 Labs: Laboratory Last Values WBC 9.4 K/mm3 (4.5-11.0) 04/25/22 04:01 RBC 4.94 M/mm3 (3.65-5.03) 04/25/22 04:01 Hgb 15.5 gm/dl (11.8-15.2) H 04/25/22 04:01 Hct 44.5 % (35.5-45.6) D 04/25/22 04:01 MCV 90 fl (84-94) 04/25/22 04:01 MCH 31 pg (28-32) 04/25/22 04:01 MCHC 35 % (32-34) H 04/25/22 04:01 RDW 12.8 % (13.2-15.2) L 04/25/22 04:01 Plt Count 146 K/mm3 (140-440) 04/25/22 04:01 Lymph % (Auto) 9.6 % (13.4-35.0) L 04/25/22 04:01 [place] % (Auto) 8.2 % (0.0-7.3) H 04/25/22 04:01 Eos % (Auto) 0.1 % (0.0-4.3) 04/25/22 04:01 Baso % (Auto) 0.2 % (0.0-1.8) 04/25/22 04:01 Lymph # (Auto) 0.9 K/mm3 (1.2-5.4) L 04/25/22 04:01 [place] # (Auto) 0.8 K/mm3 (0.0-0.8) 04/25/22 04:01 Eos # (Auto) 0.0 K/mm3 (0.0-0.4) 04/25/22 04:01 Baso # (Auto) 0.0 K/mm3 (0.0-0.1) 04/25/22 04:01 Seg Neutrophils % 81.9 % (40.0-70.0) H 04/25/22 04:01 Seg Neutrophils # 7.7 K/mm3 (1.8-7.7) 04/25/22 04:01 D-Dimer 376.26 ng/mlDDU (0-234) H 04/18/22 09:00 Sodium 146 mmol/L (137-145) H 04/25/22 04:01 Potassium 4.2 mmol/L (3.6-5.0) 04/25/22 04:01 Chloride 102.5 mmol/L (98-107) 04/25/22 04:01 Carbon Dioxide 32 mmol/L (22-30) H 04/25/22 04:01 Anion Gap 16 mmol/L 04/25/22 04:01 BUN 19 mg/dL (9-20) 04/25/22 04:01 Creatinine 0.7 mg/dL (0.8-1.3) L 04/25/22 04:01 Estimated GFR > 60 ml/min 04/25/22 04:01 BUN/Creatinine Ratio 27 % 04/25/22 04:01 Glucose 89 mg/dL (75-100) 04/25/22 04:01 POC Glucose 120 mg/dL (70-105) H 04/29/22 11:30 Calcium 10.0 mg/dL (8.4-10.2) 04/25/22 04:01 Magnesium 2.50 mg/dL (1.7-2.3) H 04/12/22 10:45 Ferritin 1407.0 ng/mL (30.0-300.0) H 04/18/22 09:00 Total Bilirubin 0.70 mg/dL (0.1-1.2) 04/23/22 07:06 AST 34 units/L (5-40) 04/23/22 07:06 ALT 50 units/L (7-56) 04/23/22 07:06 Alkaline Phosphatase 81 units/L (35-129) 04/23/22 07:06 Lactate Dehydrogenase 229 units/L (91-180) H 04/18/22 09:00 C-Reactive Protein 1.10 mg/dL (0.00-1.30) 04/18/22 09:00 Total Protein 5.3 g/dL (6.3-8.2) L 04/23/22 07:06 Albumin 3.3 g/dL (3.9-5) L 04/23/22 07:06 Albumin/Globulin Ratio 1.7 % 04/23/22 07:06 SARS-CoV-2 (PCR) Positive (Negative) A 04/29/22 10:00 Kaufman/IV: Voiding Method Incontinent Active Medications - Current Medications Current Medications: Generic Name Dose Route Start Last Admin Trade Name Freq PRN Reason Stop Dose Admin Acetaminophen 650 mg 04/06/22 15:59 Acetaminophen 325 Mg Tab PO Q4H PRN Pain MILD(1-3)/Fever >100.5/MCKENZIE Albuterol 2.5 mg 04/06/22 15:59 Albuterol 2.5 Mg/3 Ml Nebu IH Q4HRT PRN Shortness Of Breath Lipase/Protease/Amylase 1 each 04/26/22 18:00 Lipase 10,500/Protease 25,000/Amylase 43,750 (Units) Dr Barrios FEEDTUBE PRN PRN For Clogged Feeding Tube Aspirin 81 mg 04/07/22 10:00 04/29/22 10:03 Aspirin Ec 81 Mg Tab PO 81 mg QDAY SEAN Administration Cholecalciferol 1,000 unit 04/07/22 10:00 04/29/22 10:03 Cholecalciferol (Vit D3) 1000 Unit (25 Mcg) Tab PO 1,000 unit QDAY SEAN Administration Clonidine HCl 0.3 mg 04/26/22 14:00 04/26/22 13:41 Clonidine Tts 0.3 Mg/24 Hr Patch TD 0.3 mg Tu@1400 SEAN Administration Fluticasone Propionate 50 mcg 04/07/22 10:00 04/29/22 10:04 Fluticasone Propionate Nasal [place] 16 Gm NS 50 mcg QDAY SEAN Administration Heparin Sodium (Porcine) 5,000 unit 04/06/22 22:00 04/29/22 10:03 Heparin 5,000 Unit/1 Ml Vial SUB-Q 5,000 unit Q12HR SEAN Administration Hydralazine HCl 10 mg 04/22/22 15:07 04/27/22 13:50 Hydralazine 20 Mg/1 Ml Inj IV 10 mg Q4H PRN Administration Hypertension Hydromorphone HCl 0.5 mg 04/26/22 17:59 04/26/22 18:07 Hydromorphone 0.5 Mg/0.5 Ml Inj IV 0.5 mg Q8H PRN Administration Pain , Severe (7-10) Lorazepam 0.5 mg 04/26/22 18:42 04/28/22 22:54 Lorazepam 2 Mg/Ml Vial IV 0.5 mg Q6H PRN Administration Agitation Melatonin 5 mg 04/07/22 11:21 04/11/22 23:27 Melatonin 5 Mg Tab PO 5 mg QHS PRN Administration Sleep Mirtazapine 15 mg 04/11/22 22:00 04/28/22 22:53 Mirtazapine 15 Mg Tab PO 15 mg QHS SEAN Administration Ondansetron HCl 4 mg 04/06/22 15:59 Ondansetron 4 Mg/2 Ml Inj IV Q8H PRN Nausea And Vomiting Oxycodone/Acetaminophen 1 tab 04/06/22 15:59 04/13/22 22:21 Oxycodone /Acetaminophen 5-325mg Tab PO 1 tab Q16H PRN Administration Pain, Moderate (4-6) Quetiapine Fumarate 25 mg 04/21/22 14:00 04/29/22 10:03 Quetiapine 25 Mg Tab PO 25 mg TID SEAN Administration Simple Syrup 15 ml 04/26/22 18:00 Simple Syrup 15 Ml FEEDTUBE PRN PRN Hypoglycemia Simple Syrup 30 ml 04/26/22 18:00 Simple Syrup 15 Ml FEEDTUBE PRN PRN Hypoglycemia Sodium Bicarbonate 325 mg 04/26/22 18:00 Sodium Bicarbonate 325 Mg Tab FEEDTUBE PRN PRN For Clogged Feeding Tube Sodium Chloride 10 ml 04/06/22 22:00 04/29/22 10:04 Sodium Chloride 0.9% 10 Ml Flush Syringe IV 10 ml BID SEAN Administration Sodium Chloride 10 ml 04/06/22 15:59 04/25/22 19:56 Sodium Chloride 0.9% 10 Ml Flush Syringe IV 10 ml PRN PRN Administration LINE FLUSH Tiotropium [place] 1 puff 04/07/22 10:00 04/29/22 09:00 Tiotropium 18 Mcg Cap Inhalation IH Not Given QDAY SEAN Valproic Acid 500 mg 04/19/22 22:00 04/29/22 10:09 Valproic Acid 250 Mg/5 Ml Oral Liqd PO 500 mg BID SEAN Administration Nutrition/Malnutrition Assess - Dietary Evaluation Nutrition/Malnutrition Findings: Nutrition Notes Start: 04/07/22 15:47 Freq: Status: Active Protocol: Document 04/28/22 14:43 FARIBA (Rec: 04/28/22 14:52 FARIBA [id number]) Nutrition Notes Initial or Follow up Brief Note Current Diagnosis Diabetes,Hypertension, Malnutrition Other Pertinent Diagnosis COVID-19, Debility, Dehydration, Metabolic Encephalopathy, Dementia ... Current Diet TF-Glucerna 1.2 Joss @ 45 ml/hr (from B 04/27). Height 5 ft 2 in Weight 45.2 kg [place] Body Weight (kg) 53.63 BMI 18.2 Weight change and time frame 2.9 Kg body weight gain in 2 day reported. Weight Status Underweight Subjective/Other Information RD consult for routine F/U on TF tolerance/continuation. TF continues as prescribed, and well tolerated, according to RN notes. RN note on 04/28/22 06:20: Pt alert and confused, resting, on 4L 02 (sats 95%), breaths even and unlabored, on barrie restraints, tolerating tube feeding infusing @ 45 ml/hr, Sean meds given, no acute distress. - END OF NOTE Pt is on Nasal Cannula, O2 saturation @ 95%, according to Physical Assessment History notes. Percent of energy/protein needs met: Prescribed TF-Glucerna 1.2 Joss @ 45 ml/hr provides for energy/protein needs (1,285 Kcal/64 g) during LOS, 100% Kcal; 100% AA. #1 Nutrition Diagnosis Inadequate protein-energy intake Comments: TF continues as prescribed, and well tolerated, according to RN notes. Diagnosis Progress(for reassessment Improved documentation) Is patient on ventilator? No Is Patient Ambulatory and/or Out of Bed No REE-([facility]-confined to bed) [phone] Calculation Used for Recommendations [facility] Additional Notes Protein: 1-1.2 g/Kg IBW; 54-65 g/day. Fluids: 1 ml/Kcal, or as per MD. Nutrition Intervention Nutrition Support: Continue TF-Glucerna 1.2 Joss @ 45 ml/hr. Flush: 70 ml water Q 4 hr, or as per MD. Kcal 1,285 Protein (gm) 64 Carbohydrates (gm) 123 Fat (gm) 64 Fluid (mL) 862 Fiber (gm) 17 % RDI: 100% Kcal; 100% AA. Goal #1 Provide at least 75% of energy /protein needs through Enteral Feeding during LOS. Follow-Up By: 05/05/22 Additional Comments Continue monitoring TF tolerance and BM.
[2022-04-29] MEDS: LORazepam 2 MG/ML VIAL IV PRN (20:04)
[2022-04-29] MEDS: MIRTAZAPINE 15 MG TAB PO SCH (23:02)
[2022-04-30] MEDS: LORazepam 2 MG/ML VIAL IV PRN (10:38)
--- NOTE | 2022-04-30 11:11 | Progress Note ---
Subjective - Reason for Consult Consult date: 04/30/22 Reason for consult: agitation - Chief Complaint Chief complaint: The patient was seen today. He is lying in bed sleeping. He is in restraints. He does not arouse to engage in the evaluation. Will adjust medication regimen. REVIEW OF SYSTEMS Unable to assess MENTAL STATUS EXAMINATION Unable to assess Diagnoses: Dementia with behavioral disturbances Treatment Plan: d/c valproc acid 500mg BID Start Valproic acid 500mg IV qh6 d/c lorazepam d/c seroquel Start Haldol 5mg po BID Start Haldol 5mg IM q6h prn agitation check Ammonia level Check Valproic level after 5 days, then weekly Medical: Per primary Sitter: Defer to primary Disposition: Do not recommend inpatient psych treatment at this time. Will follow for psych progress and med management Thank you Case staffed with Dr. Hebert Mental Status Exam - Vital signs Last Vital Signs Temp 98.2 F 04/30/22 05:54 Pulse 61 04/30/22 05:54 Resp 18 04/30/22 05:54 BP 122/60 04/30/22 05:54 Pulse Ox 98 04/30/22 07:51
--- NOTE | 2022-04-30 11:31 | XRay Report ---
CHEST 1 VIEW 04/30/2022 11:09 AM INDICATION / CLINICAL INFORMATION: Check Placement Dobhoff. COMPARISON: 04/28/2022 FINDINGS: SUPPORT DEVICES: Feeding tube tip is in the proximal stomach just below the diaphragm. HEART / MEDIASTINUM: No significant abnormality. LUNGS / PLEURA: Only the lung bases are included. These are clear. ADDITIONAL FINDINGS: No significant additional findings. IMPRESSION: 1. Feeding tube as above. Signer Name: James English MD Signed: 04/30/2022 11:26 AM Workstation Name: [id number]
[2022-04-30] MEDS ORDERED: VALPROATE SODIUM 500 MG in SODIUM CHLORIDE 0.9% 100 ML IV SCH (12:00)
[2022-04-30] MEDS: VALPROIC ACID 250 MG/5 ML ORAL LIQD PO SCH ×3 (13:08→18:34)
[2022-04-30] MEDS: QUEtiapine 25 MG TAB PO SCH (13:08)
[2022-04-30] MEDS: CHOLECALCIFEROL (VIT D3) 1000 UNIT (25 mcg) TAB PO SCH (13:22)
[2022-04-30] MEDS: HEPARIN 5,000 UNIT/1 ML VIAL SUB-Q SCH ×2 (13:22→22:24)
[2022-04-30] MEDS: FLUTICASONE PROPIONATE NASAL SPRAY 16 GM NS SCH (13:23)
[2022-04-30] MEDS: HYDROmorphone 0.5 MG/0.5 ML INJ IV PRN (14:19)
[2022-04-30] MEDS: ASPIRIN EC 81 MG TAB PO SCH (17:28)
[2022-04-30] MEDS: ASPIRIN 81 MG TAB CHEW PO SCH (18:34)
--- NOTE | 2022-04-30 18:38 | Progress Note ---
Assessment and Plan Assessment and plan: 76 YO Male H with Vascular Dementia with Behavioral disturbance, Cerebral Atherosclerosis, DM, BPH, HTN, Malnutrition, Coronavirus Infection. Patient remains confused, lethargic with diminished cognition. Patient remains at baseline level of cognition and function. Hospice team consulted. Case varun sharma consulted. COVID-19 positive x2 [facility] -- COVID-19 positive 03/31/2022, 04/13/2022 and, 04/29/2022 Coronavirus protocol: vitamin C therapy, vitamin D therapy, zinc therapy, supplemental oxygen, pulse oximetry, prophylactic anticoagulation. On dexamethasone as intermittently needed O2 Follow-up inflammatory markers, ID consulted: recommended supportive care --HTN, added clonidine patch --Hypernatremia; Free water via Dobbhoff, monitor electrolytes -Vascular dementia with behavioral disturbance Verbal prompting, verbal redirection, benzodiazepine therapy as clinically indicated. --Cerebral atherosclerosis Risk factor reduction, antiplatelet therapy, supportive care. --General debility Bed alarm, fall precautions, supportive care. Physical therapy occupational therapy -- Mild to moderate malnutrition Increase protein intake, dietary supplementation when awake and alert only. Aspiration precautions. --Nicotine dependence Smoking cessation counseled, supportive care, behavior change counseled, pulse 50 minutes. --Volume depletion/dehydration IV fluids and supportive care, increase oral fluids --Metabolic encephalopathy Multifactorial , underlying dementia , malnutrition , advanced age COVID-19 infection , psych problems Treat underlying cause and supportive care --DVT prophylaxis SCD to bilateral extremities while in bed, prophylactic anticoagulation Hospital course: 04/13/2022; patient is lethargic sleepy, restraint for safety Continue current management, psych evaluation noted and appreciated 04/14/2022; patient is more alert today trying to pull , agitated On restraints, refusing to eat, consider Dobbhoff placement for tube feeding if needed 04/15/2022; COVID-19 positive[ 03/31 and 04/13] Check inflammatory markers, ID consulted Patient is refusing medications and diet Confused and agitated, Dobbhoff placement and tube feeding per protocol 04/16/2022; patient is more alert and awake Tolerating liquids, will advance the diet as tolerated Check physical therapy occupational therapy evaluation and recommendations DC planning per case management 04/17/2022; patient is on pured diet, Will advance the diet as tolerated 04/18/2022; recommend hospice, try to call next of kin the daughter many times Unable to reach, hospice consult inpatient versus home hospice versus SNF with hospice 04/19: Patient remains on restraint and confused. He is on 2 L nasal cannula O2. We will start on dexamethasone for 10 days. We will also Low-dose of Seroquel for agitation and anxiety. Continue to follow clinically, waiting on SNF placement 04/20: Cont seroquel, restraint as needed. follow clinically. still positive for Covid, cont dexamethasone, pending placement. No family info in the file. 04/21: remains restraint, patient o RA today, does not follow commend, added clonidine path for HTN, stopped iv fluid.follow clinically. 04/22: Patient remains in restraints. Patient currently on room air with saturations at 96%. Patient remains confused and does not follow commands. Blood pressure much better controlled. Continue current regimen. Please review case management notes from 04/20. Caregiver currently unable to accept the patient at home until they find a place that can meet his needs. 04/23: Patient remains confused. Continue current regimen. Awaiting placement. 04/24: Continue dexamethasone and supplemental O2. Patient currently requiring 4 L O2 with saturations of 99%. Patient remains confused. Psychiatry recommends valproic acid, Remeron and Seroquel. Case management reports patient has not received any acceptances to fpc. Patient previously lived alone in an RV. At this time, patient is unable to live alone and caregiver is unable to care for the patient until they find a place that can meet his needs. 04/25: Continue dexamethasone and supplemental O2. Patient remains on 4 L O2 with saturations of 99%. Patient remains confused and does not follow commands. Patient still requiring restraints. Psychiatry recommends valproic acid, Remeron and Seroquel. Case management reports patient has not received any acceptances to fpc. Patient previously lived alone in an RV. At this time, patient is unable to live alone and caregiver is unable to care for the patient until they find a place that can meet his needs. ; pending placement, continue current management Place Dobbhoff feeding tube, nutrition consult for tube feeding Monitor closely and adjust the management as needed 04/27; patient is receiving Dobbhoff feeds, check speech therapy for swallow evaluation If abnormal consider PEG placement, will try to contact family Daughter Lorenza Beauchamp To discuss the goals of treatment and discharge planning Pending fpc with hospice. Hypernatremia Free water via Dobbhoff 04/28/2022; speech evaluated the patient, patient is unable to follow swallow eval Patient needs PEG placement, however no family available to give consent Case management to assist with dressing any family, if not available will check with the ethics committee For assistance. Difficult to discharge/placement as patient has no next of kin available. 04/29/2022; crooks PCR test third time today's positive. Continue tube feeding, DC planning, no family or contact available 04/30/22; patient pulled out Dobbhoff tube last night We will replace Dobbhoff tube start feeding as tolerated Still do not have any contact with the family members History Interval history: I have seen and examined the patient at the bedside Patient's chart and medications reviewed Isolation precautions and PPE protocol strictly observed Patient is encephalopathic unresponsive Restraint for safety patient pulled off Dobbhoff last night Hospitalist Physical - Constitutional Vitals: Temp Pulse Resp BP Pulse Ox 98.2 F 61 18 122/60 97 04/30/22 05:54 04/30/22 05:54 04/30/22 05:54 04/30/22 05:54 04/30/22 13:42 General appearance: Present: no acute distress, cachectic, disheveled, other (Noncommunicative) - EENT Eyes: Present: PERRL, EOM intact - Neck Neck: Present: supple, normal ROM - Respiratory Respiratory effort: normal Respiratory: bilateral: diminished, negative: rales, rhonchi, wheezing - Cardiovascular Rhythm: regular Heart Sounds: Present: S1 & S2 - Extremities Extremities: no ischemia, No edema - Abdominal General gastrointestinal: soft, non-tender, non-distended, normal bowel sounds - Integumentary Integumentary: Present: clear, warm - Psychiatric Psychiatric: other (Noncommunicative encephalopathic) - Neurologic Neurologic: other (Noncommunicative encephalopathy) Results - Labs CBC & Chem 7: 04/25/22 04:01 04/25/22 04:01 Labs: Laboratory Last Values WBC 9.4 K/mm3 (4.5-11.0) 04/25/22 04:01 RBC 4.94 M/mm3 (3.65-5.03) 04/25/22 04:01 Hgb 15.5 gm/dl (11.8-15.2) H 04/25/22 04:01 Hct 44.5 % (35.5-45.6) D 04/25/22 04:01 MCV 90 fl (84-94) 04/25/22 04:01 MCH 31 pg (28-32) 04/25/22 04:01 MCHC 35 % (32-34) H 04/25/22 04:01 RDW 12.8 % (13.2-15.2) L 04/25/22 04:01 Plt Count 146 K/mm3 (140-440) 04/25/22 04:01 Lymph % (Auto) 9.6 % (13.4-35.0) L 04/25/22 04:01 [place] % (Auto) 8.2 % (0.0-7.3) H 04/25/22 04:01 Eos % (Auto) 0.1 % (0.0-4.3) 04/25/22 04:01 Baso % (Auto) 0.2 % (0.0-1.8) 04/25/22 04:01 Lymph # (Auto) 0.9 K/mm3 (1.2-5.4) L 04/25/22 04:01 [place] # (Auto) 0.8 K/mm3 (0.0-0.8) 04/25/22 04:01 Eos # (Auto) 0.0 K/mm3 (0.0-0.4) 04/25/22 04:01 Baso # (Auto) 0.0 K/mm3 (0.0-0.1) 04/25/22 04:01 Seg Neutrophils % 81.9 % (40.0-70.0) H 04/25/22 04:01 Seg Neutrophils # 7.7 K/mm3 (1.8-7.7) 04/25/22 04:01 D-Dimer 376.26 ng/mlDDU (0-234) H 04/18/22 09:00 Sodium 146 mmol/L (137-145) H 04/25/22 04:01 Potassium 4.2 mmol/L (3.6-5.0) 04/25/22 04:01 Chloride 102.5 mmol/L (98-107) 04/25/22 04:01 Carbon Dioxide 32 mmol/L (22-30) H 04/25/22 04:01 Anion Gap 16 mmol/L 04/25/22 04:01 BUN 19 mg/dL (9-20) 04/25/22 04:01 Creatinine 0.7 mg/dL (0.8-1.3) L 04/25/22 04:01 Estimated GFR > 60 ml/min 04/25/22 04:01 BUN/Creatinine Ratio 27 % 04/25/22 04:01 Glucose 89 mg/dL (75-100) 04/25/22 04:01 POC Glucose 105 mg/dL (70-105) 04/30/22 16:56 Calcium 10.0 mg/dL (8.4-10.2) 04/25/22 04:01 Magnesium 2.50 mg/dL (1.7-2.3) H 04/12/22 10:45 Ferritin 1407.0 ng/mL (30.0-300.0) H 04/18/22 09:00 Total Bilirubin 0.70 mg/dL (0.1-1.2) 04/23/22 07:06 AST 34 units/L (5-40) 04/23/22 07:06 ALT 50 units/L (7-56) 04/23/22 07:06 Alkaline Phosphatase 81 units/L (35-129) 04/23/22 07:06 Ammonia 14.0 umol/L (25-60) L 04/30/22 14:41 Lactate Dehydrogenase 229 units/L (91-180) H 04/18/22 09:00 C-Reactive Protein 1.10 mg/dL (0.00-1.30) 04/18/22 09:00 Total Protein 5.3 g/dL (6.3-8.2) L 04/23/22 07:06 Albumin 3.3 g/dL (3.9-5) L 04/23/22 07:06 Albumin/Globulin Ratio 1.7 % 04/23/22 07:06 SARS-CoV-2 (PCR) Positive (Negative) A 04/29/22 10:00 Kaufman/IV: Voiding Method Condom Catheter Active Medications - Current Medications Current Medications: Generic Name Dose Route Start Last Admin Trade Name Freq PRN Reason Stop Dose Admin Acetaminophen 650 mg 04/06/22 15:59 Acetaminophen 325 Mg Tab PO Q4H PRN Pain MILD(1-3)/Fever >100.5/MCKENZIE Albuterol 2.5 mg 04/06/22 15:59 Albuterol 2.5 Mg/3 Ml Nebu IH Q4HRT PRN Shortness Of Breath Lipase/Protease/Amylase 1 each 04/26/22 18:00 Lipase 10,500/Protease 25,000/Amylase 43,750 (Units) Dr Barrios FEEDTUBE PRN PRN For Clogged Feeding Tube Aspirin 81 mg 04/30/22 17:00 04/30/22 18:34 Aspirin 81 Mg Tab Chew PO 81 mg QDAY SEAN Administration Cholecalciferol 1,000 unit 04/07/22 10:00 04/30/22 13:22 Cholecalciferol (Vit D3) 1000 Unit (25 Mcg) Tab PO 1,000 unit QDAY SEAN Administration Clonidine HCl 0.3 mg 04/26/22 14:00 04/26/22 13:41 Clonidine Tts 0.3 Mg/24 Hr Patch TD 0.3 mg Tu@1400 SEAN Administration Fluticasone Propionate 50 mcg 04/07/22 10:00 04/30/22 13:23 Fluticasone Propionate Nasal [place] 16 Gm NS 50 mcg QDAY SEAN Administration Haloperidol 5 mg 04/30/22 22:00 Haloperidol 5 Mg Tab PO BID SEAN Haloperidol Lactate 5 mg 04/30/22 11:29 Haloperidol Lactate 5 Mg/1 Ml Inj IM Q6H PRN Agitation Heparin Sodium (Porcine) 5,000 unit 04/06/22 22:00 04/30/22 13:22 Heparin 5,000 Unit/1 Ml Vial SUB-Q 5,000 unit Q12HR SEAN Administration Hydralazine HCl 10 mg 04/22/22 15:07 04/27/22 13:50 Hydralazine 20 Mg/1 Ml Inj IV 10 mg Q4H PRN Administration Hypertension Hydromorphone HCl 0.5 mg 04/26/22 17:59 04/30/22 14:19 Hydromorphone 0.5 Mg/0.5 Ml Inj IV 0.5 mg Q8H PRN Administration Pain , Severe (7-10) Melatonin 5 mg 04/07/22 11:21 04/11/22 23:27 Melatonin 5 Mg Tab PO 5 mg QHS PRN Administration Sleep Mirtazapine 15 mg 04/11/22 22:00 04/29/22 23:02 Mirtazapine 15 Mg Tab PO Not Given QHS SEAN Ondansetron HCl 4 mg 04/06/22 15:59 Ondansetron 4 Mg/2 Ml Inj IV Q8H PRN Nausea And Vomiting Oxycodone/Acetaminophen 1 tab 04/06/22 15:59 04/13/22 22:21 Oxycodone /Acetaminophen 5-325mg Tab PO 1 tab Q16H PRN Administration Pain, Moderate (4-6) Simple Syrup 15 ml 04/26/22 18:00 Simple Syrup 15 Ml FEEDTUBE PRN PRN Hypoglycemia Simple Syrup 30 ml 04/26/22 18:00 Simple Syrup 15 Ml FEEDTUBE PRN PRN Hypoglycemia Sodium Bicarbonate 325 mg 04/26/22 18:00 Sodium Bicarbonate 325 Mg Tab FEEDTUBE PRN PRN For Clogged Feeding Tube Sodium Chloride 10 ml 04/06/22 22:00 04/30/22 13:23 Sodium Chloride 0.9% 10 Ml Flush Syringe IV 10 ml BID SEAN Administration Sodium Chloride 10 ml 04/06/22 15:59 04/29/22 20:05 Sodium Chloride 0.9% 10 Ml Flush Syringe IV 10 ml PRN PRN Administration LINE FLUSH Valproic Acid 500 mg 04/30/22 12:00 04/30/22 18:34 Valproic Acid 250 Mg/5 Ml Oral Liqd PO 500 mg Q6H SEAN Administration Nutrition/Malnutrition Assess - Dietary Evaluation Nutrition/Malnutrition Findings: Nutrition Notes Start: 04/07/22 15:47 Freq: Status: Active Protocol: Document 04/28/22 14:43 FARIBA (Rec: 04/28/22 14:52 FARIBA [id number]) Nutrition Notes Initial or Follow up Brief Note Current Diagnosis Diabetes,Hypertension, Malnutrition Other Pertinent Diagnosis COVID-19, Debility, Dehydration, Metabolic Encephalopathy, Dementia ... Current Diet TF-Glucerna 1.2 Joss @ 45 ml/hr (from B 04/27). Height 5 ft 2 in Weight 45.2 kg [place] Body Weight (kg) 53.63 BMI 18.2 Weight change and time frame 2.9 Kg body weight gain in 2 day reported. Weight Status Underweight Subjective/Other Information RD consult for routine F/U on TF tolerance/continuation. TF continues as prescribed, and well tolerated, according to RN notes. RN note on 04/28/22 06:20: Pt alert and confused, resting, on 4L 02 (sats 95%), breaths even and unlabored, on barrie restraints, tolerating tube feeding infusing @ 45 ml/hr, Sean meds given, no acute distress. - END OF NOTE Pt is on Nasal Cannula, O2 saturation @ 95%, according to Physical Assessment History notes. Percent of energy/protein needs met: Prescribed TF-Glucerna 1.2 Joss @ 45 ml/hr provides for energy/protein needs (1,285 Kcal/64 g) during LOS, 100% Kcal; 100% AA. #1 Nutrition Diagnosis Inadequate protein-energy intake Comments: TF continues as prescribed, and well tolerated, according to RN notes. Diagnosis Progress(for reassessment Improved documentation) Is patient on ventilator? No Is Patient Ambulatory and/or Out of Bed No REE-([facility]-confined to bed) [phone] Calculation Used for Recommendations [facility] Additional Notes Protein: 1-1.2 g/Kg IBW; 54-65 g/day. Fluids: 1 ml/Kcal, or as per MD. Nutrition Intervention Nutrition Support: Continue TF-Glucerna 1.2 Joss @ 45 ml/hr. Flush: 70 ml water Q 4 hr, or as per MD. Kcal 1,285 Protein (gm) 64 Carbohydrates (gm) 123 Fat (gm) 64 Fluid (mL) 862 Fiber (gm) 17 % RDI: 100% Kcal; 100% AA. Goal #1 Provide at least 75% of energy /protein needs through Enteral Feeding during LOS. Follow-Up By: 05/05/22 Additional Comments Continue monitoring TF tolerance and BM.
[2022-04-30] MEDS: HALOPERIDOL 5 MG TAB PO SCH (22:24)
[2022-04-30] MEDS: MIRTAZAPINE 15 MG TAB PO SCH (22:24)
[2022-05-01] MEDS: VALPROIC ACID 250 MG/5 ML ORAL LIQD PO SCH ×4 (00:55→19:01)
[2022-05-01 07:41] LABS: Basophils % (Auto) 0.1 % (0.0-1.8); Eosinophils # (Auto) 0.1 K/mm3 (0.0-0.4); Eosinophils % (Auto) 0.9 % (0.0-4.3); Hematocrit 33.8 % (35.5-45.6); Hemoglobin 11.7 gm/dl (11.8-15.2); Lymphocytes # (Auto) 0.5 K/mm3 (1.2-5.4); Mean Corpuscular HGB Conc 35 % (32-34); Mean Corpuscular Volume 91 fl (84-94); Monocytes # (Auto) 0.7 K/mm3 (0.0-0.8); Monocytes % (Auto) 5.8 % (0.0-7.3); Platelet Count 117 K/mm3 (140-440); Red Blood Count 3.73 M/mm3 (3.65-5.03); Red Cell Distribution Width 13.1 % (13.2-15.2)
[2022-05-01 07:42] LABS: Alanine Aminotransferase 26 units/L (7-56); Albumin 2.6 g/dL (3.9-5); Blood Urea Nitrogen 21 mg/dL (9-20); Calcium 9.2 mg/dL (8.4-10.2); Hemolysis Index 11
[2022-05-01 07:44] LABS: BUN/Creatinine Ratio 42
--- NOTE | 2022-05-01 09:32 | Progress Note ---
Assessment and Plan Assessment and plan: 76 YO Male H with Vascular Dementia with Behavioral disturbance, Cerebral Atherosclerosis, DM, BPH, HTN, Malnutrition, Coronavirus Infection. Patient remains confused, lethargic with diminished cognition. Patient remains at baseline level of cognition and function. Hospice team consulted. Case varun sharma consulted. COVID-19 positive x4 discharge planning to [facility] with hosp[facility] care. Social issues, patient has no family Contact people some friends Lethargic, noncommunicative, agitated requiring 24/7 restraints, unable to eat, Dobbhoff feeds, -- COVID-19 positive 03/31/2022, 04/13/2022,04/20/22 and, 04/29/2022 Coronavirus protocol: vitamin C therapy, vitamin D therapy, zinc therapy, supplemental oxygen, pulse oximetry, prophylactic anticoagulation. On dexamethasone as intermittently needed O2 Follow-up inflammatory markers, ID consulted: recommended supportive care --Hypertension; Well-controlled Continue current antihypertensives and as needed hydralazine --Hypernatremia; Free water via Dobbhoff, monitor electrolytes -Vascular dementia with behavioral disturbance Verbal prompting, verbal redirection, benzodiazepine therapy as clinically indicated. --Cerebral atherosclerosis Risk factor reduction, antiplatelet therapy, supportive care. --General debility Bed alarm, fall precautions, supportive care. Physical therapy occupational therapy -- Severe protein calorie malnutrition Increase protein intake, dietary supplementation when awake and alert only. Aspiration precautions. --Nicotine dependence Smoking cessation counseled, supportive care, behavior change counseled, pulse 50 minutes. --Volume depletion/dehydration IV fluids and supportive care, increase oral fluids --Metabolic encephalopathy Multifactorial , underlying dementia , malnutrition , advanced age COVID-19 infection , psych problems Treat underlying cause and supportive care --DVT prophylaxis SCD to bilateral extremities while in bed, prophylactic anticoagulation Hospital course: 04/13/2022; patient is lethargic sleepy, restraint for safety Continue current management, psych evaluation noted and appreciated 04/14/2022; patient is more alert today trying to pull , agitated On restraints, refusing to eat, consider Dobbhoff placement for tube feeding if needed 04/15/2022; COVID-19 positive[ 03/31 and 04/13] Check inflammatory markers, ID consulted Patient is refusing medications and diet Confused and agitated, Dobbhoff placement and tube feeding per protocol 04/16/2022; patient is more alert and awake Tolerating liquids, will advance the diet as tolerated Check physical therapy occupational therapy evaluation and recommendations DC planning per case management 04/17/2022; patient is on pured diet, Will advance the diet as tolerated 04/18/2022; recommend hospice, try to call next of kin the daughter many times Unable to reach, hospice consult inpatient versus home hospice versus SNF with hospice 04/19: Patient remains on restraint and confused. He is on 2 L nasal cannula O2. We will start on dexamethasone for 10 days. We will also Low-dose of Seroquel for agitation and anxiety. Continue to follow clinically, waiting on SNF placement 04/20: Cont seroquel, restraint as needed. follow clinically. still positive for Covid, cont dexamethasone, pending placement. No family info in the file. 04/21: remains restraint, patient o RA today, does not follow commend, added clonidine path for HTN, stopped iv fluid.follow clinically. 04/22: Patient remains in restraints. Patient currently on room air with saturations at 96%. Patient remains confused and does not follow commands. Blood pressure much better controlled. Continue current regimen. Please review case management notes from 04/20. Caregiver currently unable to accept the patient at home until they find a place that can meet his needs. 04/23: Patient remains confused. Continue current regimen. Awaiting placement. 04/24: Continue dexamethasone and supplemental O2. Patient currently requiring 4 L O2 with saturations of 99%. Patient remains confused. Psychiatry recommends valproic acid, Remeron and Seroquel. Case management reports patient has not received any acceptances to retirement. Patient previously lived alone in an RV. At this time, patient is unable to live alone and caregiver is unable to care for the patient until they find a place that can meet his needs. 04/25: Continue dexamethasone and supplemental O2. Patient remains on 4 L O2 with saturations of 99%. Patient remains confused and does not follow commands. Patient still requiring restraints. Psychiatry recommends valproic acid, Remeron and Seroquel. Case management reports patient has not received any acceptances to retirement. Patient previously lived alone in an RV. At this time, patient is unable to live alone and caregiver is unable to care for the patient until they find a place that can meet his needs. 628; pending placement, continue current management Place Dobbhoff feeding tube, nutrition consult for tube feeding Monitor closely and adjust the management as needed 04/27; patient is receiving Dobbhoff feeds, check speech therapy for swallow evaluation If abnormal consider PEG placement, will try to contact family Daughter Lorenza Beauchamp To discuss the goals of treatment and discharge planning Pending retirement with hospice. Hypernatremia Free water via Dobbhoff 04/28/2022; speech evaluated the patient, patient is unable to follow swallow eval Patient needs PEG placement, however no family available to give consent Case management to assist with dressing any family, if not available will check with the ethics committee For assistance. Difficult to discharge/placement as patient has no next of kin available. 04/29/2022; crooks PCR test third time today's positive. Continue tube feeding, DC planning, no family or contact available 04/30/22; patient pulled out Dobbhoff tube last night We will replace Dobbhoff tube start feeding as tolerated Still do not have any contact with the family members 05/01/2022; continue Dobbhoff feeds, restraints for safety DC planning[difficult to place due to social/no family reasons] History Interval history: I have seen and examined the patient this morning Patient's chart and medications reviewed patient is noncommunicative Rreceiving Dobbhoff feeding Restraints for safety Hospitalist Physical - Constitutional Vitals: Temp Pulse Resp BP Pulse Ox 97.6 F 87 16 145/64 100 05/01/22 05:04 05/01/22 05:04 05/01/22 05:04 05/01/22 05:04 05/01/22 09:18 General appearance: Present: no acute distress, cachectic, disheveled, other (Noncommunicative) - EENT Eyes: Present: PERRL, EOM intact - Neck Neck: Present: supple, normal ROM - Respiratory Respiratory effort: normal Respiratory: bilateral: diminished, negative: rales, rhonchi, wheezing - Cardiovascular Rhythm: regular Heart Sounds: Present: S1 & S2 - Extremities Extremities: no ischemia, No edema - Abdominal General gastrointestinal: soft, non-tender, non-distended, normal bowel sounds - Integumentary Integumentary: Present: clear, warm - Psychiatric Psychiatric: other - Neurologic Neurologic: other (Noncommunicative noncommunicative) Results - Labs CBC & Chem 7: 05/01/22 06:45 05/01/22 06:45 Labs: Laboratory Last Values WBC 12.8 K/mm3 (4.5-11.0) H 05/01/22 06:45 RBC 3.73 M/mm3 (3.65-5.03) 05/01/22 06:45 Hgb 11.7 gm/dl (11.8-15.2) L 05/01/22 06:45 Hct 33.8 % (35.5-45.6) L 05/01/22 06:45 MCV 91 fl (84-94) 05/01/22 06:45 MCH 31 pg (28-32) 05/01/22 06:45 MCHC 35 % (32-34) H 05/01/22 06:45 RDW 13.1 % (13.2-15.2) L 05/01/22 06:45 Plt Count 117 K/mm3 (140-440) L 05/01/22 06:45 Lymph % (Auto) 4.0 % (13.4-35.0) L 05/01/22 06:45 [place] % (Auto) 5.8 % (0.0-7.3) 05/01/22 06:45 Eos % (Auto) 0.9 % (0.0-4.3) 05/01/22 06:45 Baso % (Auto) 0.1 % (0.0-1.8) 05/01/22 06:45 Lymph # (Auto) 0.5 K/mm3 (1.2-5.4) L 05/01/22 06:45 [place] # (Auto) 0.7 K/mm3 (0.0-0.8) 05/01/22 06:45 Eos # (Auto) 0.1 K/mm3 (0.0-0.4) 05/01/22 06:45 Baso # (Auto) 0.0 K/mm3 (0.0-0.1) 05/01/22 06:45 Seg Neutrophils % 89.2 % (40.0-70.0) H 05/01/22 06:45 Seg Neutrophils # 11.4 K/mm3 (1.8-7.7) H 05/01/22 06:45 D-Dimer 376.26 ng/mlDDU (0-234) H 04/18/22 09:00 Sodium 140 mmol/L (137-145) 05/01/22 06:45 Potassium 4.4 mmol/L (3.6-5.0) 05/01/22 06:45 Chloride 99.5 mmol/L (98-107) 05/01/22 06:45 Carbon Dioxide 31 mmol/L (22-30) H 05/01/22 06:45 Anion Gap 14 mmol/L 05/01/22 06:45 BUN 21 mg/dL (9-20) H 05/01/22 06:45 Creatinine 0.5 mg/dL (0.8-1.3) L 05/01/22 06:45 Estimated GFR > 60 ml/min 05/01/22 06:45 BUN/Creatinine Ratio 42 % 05/01/22 06:45 Glucose 137 mg/dL (75-100) H 05/01/22 06:45 POC Glucose 103 mg/dL (70-105) 05/01/22 05:52 Calcium 9.2 mg/dL (8.4-10.2) 05/01/22 06:45 Magnesium 2.00 mg/dL (1.7-2.3) 05/01/22 06:45 Ferritin 1407.0 ng/mL (30.0-300.0) H 04/18/22 09:00 Total Bilirubin 0.60 mg/dL (0.1-1.2) 05/01/22 06:45 AST 15 units/L (5-40) 05/01/22 06:45 ALT 26 units/L (7-56) 05/01/22 06:45 Alkaline Phosphatase 98 units/L (35-129) 05/01/22 06:45 Ammonia 14.0 umol/L (25-60) L 04/30/22 14:41 Lactate Dehydrogenase 229 units/L (91-180) H 04/18/22 09:00 C-Reactive Protein 1.10 mg/dL (0.00-1.30) 04/18/22 09:00 Total Protein 5.2 g/dL (6.3-8.2) L 05/01/22 06:45 Albumin 2.6 g/dL (3.9-5) L 05/01/22 06:45 Albumin/Globulin Ratio 1.0 % 05/01/22 06:45 SARS-CoV-2 (PCR) Positive (Negative) A 04/29/22 10:00 Kaufman/IV: Voiding Method Condom Catheter Active Medications - Current Medications Current Medications: Generic Name Dose Route Start Last Admin Trade Name Freq PRN Reason Stop Dose Admin Acetaminophen 650 mg 04/06/22 15:59 Acetaminophen 325 Mg Tab PO Q4H PRN Pain MILD(1-3)/Fever >100.5/MCKENZIE Albuterol 2.5 mg 04/06/22 15:59 Albuterol 2.5 Mg/3 Ml Nebu IH Q4HRT PRN Shortness Of Breath Lipase/Protease/Amylase 1 each 04/26/22 18:00 Lipase 10,500/Protease 25,000/Amylase 43,750 (Units) Dr Barrios FEEDTUBE PRN PRN For Clogged Feeding Tube Aspirin 81 mg 04/30/22 17:00 04/30/22 18:34 Aspirin 81 Mg Tab Chew PO 81 mg QDAY SEAN Administration Cholecalciferol 1,000 unit 04/07/22 10:00 04/30/22 13:22 Cholecalciferol (Vit D3) 1000 Unit (25 Mcg) Tab PO 1,000 unit QDAY SEAN Administration Clonidine HCl 0.3 mg 04/26/22 14:00 04/26/22 13:41 Clonidine Tts 0.3 Mg/24 Hr Patch TD 0.3 mg Tu@1400 SEAN Administration Fluticasone Propionate 50 mcg 04/07/22 10:00 04/30/22 13:23 Fluticasone Propionate Nasal [place] 16 Gm NS 50 mcg QDAY SEAN Administration Haloperidol 5 mg 04/30/22 22:00 04/30/22 22:24 Haloperidol 5 Mg Tab PO 5 mg BID SEAN Administration Haloperidol Lactate 5 mg 04/30/22 11:29 Haloperidol Lactate 5 Mg/1 Ml Inj IM Q6H PRN Agitation Heparin Sodium (Porcine) 5,000 unit 04/06/22 22:00 04/30/22 22:24 Heparin 5,000 Unit/1 Ml Vial SUB-Q 5,000 unit Q12HR SEAN Administration Hydralazine HCl 10 mg 04/22/22 15:07 04/27/22 13:50 Hydralazine 20 Mg/1 Ml Inj IV 10 mg Q4H PRN Administration Hypertension Hydromorphone HCl 0.5 mg 04/26/22 17:59 04/30/22 14:19 Hydromorphone 0.5 Mg/0.5 Ml Inj IV 0.5 mg Q8H PRN Administration Pain , Severe (7-10) Melatonin 5 mg 04/07/22 11:21 04/11/22 23:27 Melatonin 5 Mg Tab PO 5 mg QHS PRN Administration Sleep Mirtazapine 15 mg 04/11/22 22:00 04/30/22 22:24 Mirtazapine 15 Mg Tab PO 15 mg QHS SEAN Administration Ondansetron HCl 4 mg 04/06/22 15:59 Ondansetron 4 Mg/2 Ml Inj IV Q8H PRN Nausea And Vomiting Oxycodone/Acetaminophen 1 tab 04/06/22 15:59 04/13/22 22:21 Oxycodone /Acetaminophen 5-325mg Tab PO 1 tab Q16H PRN Administration Pain, Moderate (4-6) Simple Syrup 15 ml 04/26/22 18:00 Simple Syrup 15 Ml FEEDTUBE PRN PRN Hypoglycemia Simple Syrup 30 ml 04/26/22 18:00 Simple Syrup 15 Ml FEEDTUBE PRN PRN Hypoglycemia Sodium Bicarbonate 325 mg 04/26/22 18:00 Sodium Bicarbonate 325 Mg Tab FEEDTUBE PRN PRN For Clogged Feeding Tube Sodium Chloride 10 ml 04/06/22 22:00 04/30/22 22:25 Sodium Chloride 0.9% 10 Ml Flush Syringe IV 10 ml BID SEAN Administration Sodium Chloride 10 ml 04/06/22 15:59 04/29/22 20:05 Sodium Chloride 0.9% 10 Ml Flush Syringe IV 10 ml PRN PRN Administration LINE FLUSH Valproic Acid 500 mg 04/30/22 12:00 05/01/22 05:52 Valproic Acid 250 Mg/5 Ml Oral Liqd PO 500 mg Q6H SEAN Administration Nutrition/Malnutrition Assess - Dietary Evaluation Nutrition/Malnutrition Findings: Nutrition Notes Start: 04/07/22 15:47 Freq: Status: Active Protocol: Document 04/28/22 14:43 FARIBA (Rec: 04/28/22 14:52 FARBIA [email or web address]) Nutrition Notes Initial or Follow up Brief Note Current Diagnosis Diabetes,Hypertension, Malnutrition Other Pertinent Diagnosis COVID-19, Debility, Dehydration, Metabolic Encephalopathy, Dementia ... Current Diet TF-Glucerna 1.2 Joss @ 45 ml/hr (from B 04/27). Height 5 ft 2 in Weight 45.2 kg Arthur Body Weight (kg) 53.63 BMI 18.2 Weight change and time frame 2.9 Kg body weight gain in 2 day reported. Weight Status Underweight Subjective/Other Information RD consult for routine F/U on TF tolerance/continuation. TF continues as prescribed, and well tolerated, according to RN notes. RN note on 04/28/22 06:20: Pt alert and confused, resting, on 4L 02 (sats 95%), breaths even and unlabored, on barrie restraints, tolerating tube feeding infusing @ 45 ml/hr, Sean meds given, no acute distress. - END OF NOTE Pt is on Nasal Cannula, O2 saturation @ 95%, according to Physical Assessment History notes. Percent of energy/protein needs met: Prescribed TF-Glucerna 1.2 Joss @ 45 ml/hr provides for energy/protein needs (1,285 Kcal/64 g) during LOS, 100% Kcal; 100% AA. #1 Nutrition Diagnosis Inadequate protein-energy intake Comments: TF continues as prescribed, and well tolerated, according to RN notes. Diagnosis Progress(for reassessment Improved documentation) Is patient on ventilator? No Is Patient Ambulatory and/or Out of Bed No REE-([facility]-confined to bed) 1292.064 Calculation Used for Recommendations [facility] Additional Notes Protein: 1-1.2 g/Kg IBW; 54-65 g/day. Fluids: 1 ml/Kcal, or as per MD. Nutrition Intervention Nutrition Support: Continue TF-Glucerna 1.2 Joss @ 45 ml/hr. Flush: 70 ml water Q 4 hr, or as per MD. Kcal 1,285 Protein (gm) 64 Carbohydrates (gm) 123 Fat (gm) 64 Fluid (mL) 862 Fiber (gm) 17 % RDI: 100% Kcal; 100% AA. Goal #1 Provide at least 75% of energy /protein needs through Enteral Feeding during LOS. Follow-Up By: 05/05/22 Additional Comments Continue monitoring TF tolerance and BM.
[2022-05-01] MEDS: ASPIRIN 81 MG TAB CHEW PO SCH (10:16)
[2022-05-01] MEDS: HALOPERIDOL 5 MG TAB PO SCH ×2 (10:16→22:26)
[2022-05-01] MEDS: FLUTICASONE PROPIONATE NASAL SPRAY 16 GM NS SCH (10:16)
[2022-05-01] MEDS: HEPARIN 5,000 UNIT/1 ML VIAL SUB-Q SCH ×2 (10:16→22:26)
[2022-05-01] MEDS: CHOLECALCIFEROL (VIT D3) 1000 UNIT (25 mcg) TAB PO SCH (10:16)
--- NOTE | 2022-05-01 12:45 | Progress Note ---
Subjective - Reason for Consult Consult date: 05/01/22 Reason for consult: agitation - Chief Complaint Chief complaint: The patient was seen today. He is lying with one leg up. He appears sedated. He does not arouse when I call his name. Will adjust medication regimen. REVIEW OF SYSTEMS Unable to assess MENTAL STATUS EXAMINATION Unable to assess Diagnoses: Dementia with behavioral disturbances Treatment Plan: Continue meds as prescribed Check Valproic level after 5 days, then weekly Medical: Per primary Sitter: Defer to primary Disposition: Do not recommend inpatient psych treatment at this time. Will follow for psych progress and med management Thank you Case staffed with Dr. Hebert Mental Status Exam - Vital signs Last Vital Signs Temp 97.9 F 05/01/22 10:54 Pulse 59 L 05/01/22 10:54 Resp 22 05/01/22 10:54 BP 125/60 05/01/22 10:54 Pulse Ox 100 05/01/22 10:54
[2022-05-01] MEDS: HYDROmorphone 0.5 MG/0.5 ML INJ IV PRN (14:17)
[2022-05-01] MEDS: MIRTAZAPINE 15 MG TAB PO SCH (22:26)
[2022-05-02] MEDS: VALPROIC ACID 250 MG/5 ML ORAL LIQD PO SCH ×4 (00:20→18:38)
--- NOTE | 2022-05-02 01:07 | Progress Note ---
Assessment and Plan Assessment and plan: 76 YO Male H with Vascular Dementia with Behavioral disturbance, Cerebral Atherosclerosis, DM, BPH, HTN, Malnutrition, Coronavirus Infection. Patient remains confused, lethargic with diminished cognition. Patient remains at baseline level of cognition and function. Hospice team consulted. Case varun sharma consulted. COVID-19 positive x4 discharge planning to [facility] facility with hospice care. Social issues, patient has no family Contact people some friends Lethargic, noncommunicative, agitated requiring 24/7 restraints, unable to eat, Dobbhoff feeds,, patient pulls off Dobbhoff in spite of restraints -- COVID-19 positivex4 03/31/2022, 04/13/2022,04/20/22 and, 04/29/2022 Isolation precautions and protocols vitamin C therapy, vitamin D therapy, zinc therapy, supplemental oxygen, pulse oximetry, prophylactic anticoagulation. On dexamethasone as intermittently needed O2 Follow-up inflammatory markers, ID consulted: recommended supportive care --Hypertension; Well-controlled Continue current antihypertensives and as needed hydralazine --Hypernatremia; Free water via Dobbhoff, monitor electrolytes -Vascular dementia with behavioral disturbance Verbal prompting, verbal redirection, benzodiazepine therapy as clinically indicated. --Cerebral atherosclerosis Risk factor reduction, antiplatelet therapy, supportive care. --General debility Bed alarm, fall precautions, supportive care. Physical therapy occupational therapy -- Severe protein calorie malnutrition Increase protein intake, dietary supplementation when awake and alert only. Aspiration precautions. --Nicotine dependence Smoking cessation counseled, supportive care, behavior change counseled, pulse 50 minutes. --Volume depletion/dehydration IV fluids and supportive care, increase oral fluids --Metabolic encephalopathy Multifactorial , underlying dementia , malnutrition , advanced age COVID-19 infection , psych problems Treat underlying cause and supportive care --DVT prophylaxis SCD to bilateral extremities while in bed, prophylactic anticoagulation Hospital course: 04/13/2022; patient is lethargic sleepy, restraint for safety Continue current management, psych evaluation noted and appreciated 04/14/2022; patient is more alert today trying to pull , agitated On restraints, refusing to eat, consider Dobbhoff placement for tube feeding if needed 04/15/2022; COVID-19 positive[ 03/31 and 04/13] Check inflammatory markers, ID consulted Patient is refusing medications and diet Confused and agitated, Dobbhoff placement and tube feeding per protocol 04/16/2022; patient is more alert and awake Tolerating liquids, will advance the diet as tolerated Check physical therapy occupational therapy evaluation and recommendations DC planning per case management 04/17/2022; patient is on pured diet, Will advance the diet as tolerated 04/18/2022; recommend hospice, try to call next of kin the daughter many times Unable to reach, hospice consult inpatient versus home hospice versus SNF with hospice 04/19: Patient remains on restraint and confused. He is on 2 L nasal cannula O2. We will start on dexamethasone for 10 days. We will also Low-dose of Seroquel for agitation and anxiety. Continue to follow clinically, waiting on SNF placement 04/20: Cont seroquel, restraint as needed. follow clinically. still positive for Covid, cont dexamethasone, pending placement. No family info in the file. 04/21: remains restraint, patient o RA today, does not follow commend, added clonidine path for HTN, stopped iv fluid.follow clinically. 04/22: Patient remains in restraints. Patient currently on room air with saturations at 96%. Patient remains confused and does not follow commands. Blood pressure much better controlled. Continue current regimen. Please review case management notes from 04/20. Caregiver currently unable to accept the patient at home until they find a place that can meet his needs. 04/23: Patient remains confused. Continue current regimen. Awaiting placement. 04/24: Continue dexamethasone and supplemental O2. Patient currently requiring 4 L O2 with saturations of 99%. Patient remains confused. Psychiatry recommends valproic acid, Remeron and Seroquel. Case management reports patient has not received any acceptances to skilled nursing. Patient previously lived alone in an RV. At this time, patient is unable to live alone and caregiver is unable to care for the patient until they find a place that can meet his needs. 04/25: Continue dexamethasone and supplemental O2. Patient remains on 4 L O2 with saturations of 99%. Patient remains confused and does not follow commands. Patient still requiring restraints. Psychiatry recommends valproic acid, Remeron and Seroquel. Case management reports patient has not received any acceptances to skilled nursing. Patient previously lived alone in an RV. At this time, patient is unable to live alone and caregiver is unable to care for the patient until they find a place that can meet his needs. ;; pending placement, continue current management Place Dobbhoff feeding tube, nutrition consult for tube feeding Monitor closely and adjust the management as needed 04/27; patient is receiving Dobbhoff feeds, check speech therapy for swallow evaluation If abnormal consider PEG placement, will try to contact family Daughter Colt Beauchamp To discuss the goals of treatment and discharge planning Pending skilled nursing with hospice. Hypernatremia Free water via Dobbhoff 04/28/2022; speech evaluated the patient, patient is unable to follow swallow eval Patient needs PEG placement, however no family available to give consent Case management to assist with dressing any family, if not available will check with the ethics committee For assistance. Difficult to discharge/placement as patient has no next of kin available. 04/29/2022; crooks PCR test third time today's positive. Continue tube feeding, DC planning, no family or contact available 04/30/22; patient pulled out Dobbhoff tube last night We will replace Dobbhoff tube start feeding as tolerated Still do not have any contact with the family members 05/01/2022; continue Dobbhoff feeds, restraints for safety DC planning[difficult to place due to social/no family reasons] 05/02/2022; restraints for safety, Dobbhoff feeds, awaiting placement Multiple social issues, no family available, COVID-19 x4 History Interval history: I have seen and examined the patient at the bedside today Patient's chart and medications reviewed. Nurse reports that patient pulled out the NG tube in spite of restraints Patient is lethargic confused Vital signs noted Hospitalist Physical - Constitutional Vitals: Temp Pulse Resp BP Pulse Ox 98.1 F 106 H 20 142/66 97 05/01/22 22:31 05/01/22 22:31 05/01/22 22:31 05/01/22 22:31 05/01/22 22:31 General appearance: Present: no acute distress, cachectic, disheveled, other ( Noncommunicative) - EENT Eyes: Present: PERRL, EOM intact - Neck Neck: Present: supple, normal ROM - Respiratory Respiratory effort: normal Respiratory: bilateral: diminished, negative: rales, rhonchi, wheezing - Cardiovascular Rhythm: regular Heart Sounds: Present: S1 & S2 - Extremities Extremities: no ischemia, No edema - Abdominal General gastrointestinal: soft, non-tender, non-distended, normal bowel sounds - Integumentary Integumentary: Present: clear, warm - Psychiatric Psychiatric: other (Confused and agitated) - Neurologic Neurologic: other (Confused nonverbal) Results - Labs CBC & Chem 7: 05/01/22 06:45 05/01/22 06:45 Labs: Laboratory Last Values WBC 12.8 K/mm3 (4.5-11.0) H 05/01/22 06:45 RBC 3.73 M/mm3 (3.65-5.03) 05/01/22 06:45 Hgb 11.7 gm/dl (11.8-15.2) L 05/01/22 06:45 Hct 33.8 % (35.5-45.6) L 05/01/22 06:45 MCV 91 fl (84-94) 05/01/22 06:45 MCH 31 pg (28-32) 05/01/22 06:45 MCHC 35 % (32-34) H 05/01/22 06:45 RDW 13.1 % (13.2-15.2) L 05/01/22 06:45 Plt Count 117 K/mm3 (140-440) L 05/01/22 06:45 Lymph % (Auto) 4.0 % (13.4-35.0) L 05/01/22 06:45 [place] % (Auto) 5.8 % (0.0-7.3) 05/01/22 06:45 Eos % (Auto) 0.9 % (0.0-4.3) 05/01/22 06:45 Baso % (Auto) 0.1 % (0.0-1.8) 05/01/22 06:45 Lymph # (Auto) 0.5 K/mm3 (1.2-5.4) L 05/01/22 06:45 [place] # (Auto) 0.7 K/mm3 (0.0-0.8) 05/01/22 06:45 Eos # (Auto) 0.1 K/mm3 (0.0-0.4) 05/01/22 06:45 Baso # (Auto) 0.0 K/mm3 (0.0-0.1) 05/01/22 06:45 Seg Neutrophils % 89.2 % (40.0-70.0) H 05/01/22 06:45 Seg Neutrophils # 11.4 K/mm3 (1.8-7.7) H 05/01/22 06:45 D-Dimer 376.26 ng/mlDDU (0-234) H 04/18/22 09:00 Sodium 140 mmol/L (137-145) 05/01/22 06:45 Potassium 4.4 mmol/L (3.6-5.0) 05/01/22 06:45 Chloride 99.5 mmol/L (98-107) 05/01/22 06:45 Carbon Dioxide 31 mmol/L (22-30) H 05/01/22 06:45 Anion Gap 14 mmol/L 05/01/22 06:45 BUN 21 mg/dL (9-20) H 05/01/22 06:45 Creatinine 0.5 mg/dL (0.8-1.3) L 05/01/22 06:45 Estimated GFR > 60 ml/min 05/01/22 06:45 BUN/Creatinine Ratio 42 % 05/01/22 06:45 Glucose 137 mg/dL (75-100) H 05/01/22 06:45 POC Glucose 112 mg/dL (70-105) H 05/01/22 22:25 Calcium 9.2 mg/dL (8.4-10.2) 05/01/22 06:45 Magnesium 2.00 mg/dL (1.7-2.3) 05/01/22 06:45 Ferritin 1407.0 ng/mL (30.0-300.0) H 04/18/22 09:00 Total Bilirubin 0.60 mg/dL (0.1-1.2) 05/01/22 06:45 AST 15 units/L (5-40) 05/01/22 06:45 ALT 26 units/L (7-56) 05/01/22 06:45 Alkaline Phosphatase 98 units/L (35-129) 05/01/22 06:45 Ammonia 14.0 umol/L (25-60) L 04/30/22 14:41 Lactate Dehydrogenase 229 units/L (91-180) H 04/18/22 09:00 C-Reactive Protein 1.10 mg/dL (0.00-1.30) 04/18/22 09:00 Total Protein 5.2 g/dL (6.3-8.2) L 05/01/22 06:45 Albumin 2.6 g/dL (3.9-5) L 05/01/22 06:45 Albumin/Globulin Ratio 1.0 % 05/01/22 06:45 SARS-CoV-2 (PCR) Positive (Negative) A 04/29/22 10:00 Kaufman/IV: Voiding Method Condom Catheter Active Medications - Current Medications Current Medications: Generic Name Dose Route Start Last Admin Trade Name Freq PRN Reason Stop Dose Admin Acetaminophen 650 mg 04/06/22 15:59 Acetaminophen 325 Mg Tab PO Q4H PRN Pain MILD(1-3)/Fever >100.5/MCKENZIE Albuterol 2.5 mg 04/06/22 15:59 Albuterol 2.5 Mg/3 Ml Nebu IH Q4HRT PRN Shortness Of Breath Lipase/Protease/Amylase 1 each 04/26/22 18:00 Lipase 10,500/Protease 25,000/Amylase 43,750 (Units) Dr Barrios FEEDTUBE PRN PRN For Clogged Feeding Tube Aspirin 81 mg 04/30/22 17:00 05/01/22 10:16 Aspirin 81 Mg Tab Chew PO 81 mg QDAY SEAN Administration Cholecalciferol 1,000 unit 04/07/22 10:00 05/01/22 10:16 Cholecalciferol (Vit D3) 1000 Unit (25 Mcg) Tab PO 1,000 unit QDAY SEAN Administration Clonidine HCl 0.3 mg 04/26/22 14:00 04/26/22 13:41 Clonidine Tts 0.3 Mg/24 Hr Patch TD 0.3 mg Tu@1400 SEAN Administration Fluticasone Propionate 50 mcg 04/07/22 10:00 05/01/22 10:16 Fluticasone Propionate Nasal [place] 16 Gm NS 50 mcg QDAY SEAN Administration Haloperidol 5 mg 04/30/22 22:00 05/01/22 22:26 Haloperidol 5 Mg Tab PO 5 mg BID SEAN Administration Haloperidol Lactate 5 mg 04/30/22 11:29 Haloperidol Lactate 5 Mg/1 Ml Inj IM Q6H PRN Agitation Heparin Sodium (Porcine) 5,000 unit 04/06/22 22:00 05/01/22 22:26 Heparin 5,000 Unit/1 Ml Vial SUB-Q 5,000 unit Q12HR SEAN Administration Hydralazine HCl 10 mg 04/22/22 15:07 04/27/22 13:50 Hydralazine 20 Mg/1 Ml Inj IV 10 mg Q4H PRN Administration Hypertension Hydromorphone HCl 0.5 mg 04/26/22 17:59 05/01/22 14:17 Hydromorphone 0.5 Mg/0.5 Ml Inj IV 0.5 mg Q8H PRN Administration Pain , Severe (7-10) Melatonin 5 mg 04/07/22 11:21 04/11/22 23:27 Melatonin 5 Mg Tab PO 5 mg QHS PRN Administration Sleep Mirtazapine 15 mg 04/11/22 22:00 05/01/22 22:26 Mirtazapine 15 Mg Tab PO 15 mg QHS SEAN Administration Ondansetron HCl 4 mg 04/06/22 15:59 Ondansetron 4 Mg/2 Ml Inj IV Q8H PRN Nausea And Vomiting Oxycodone/Acetaminophen 1 tab 04/06/22 15:59 04/13/22 22:21 Oxycodone /Acetaminophen 5-325mg Tab PO 1 tab Q16H PRN Administration Pain, Moderate (4-6) Simple Syrup 15 ml 04/26/22 18:00 Simple Syrup 15 Ml FEEDTUBE PRN PRN Hypoglycemia Simple Syrup 30 ml 04/26/22 18:00 Simple Syrup 15 Ml FEEDTUBE PRN PRN Hypoglycemia Sodium Bicarbonate 325 mg 04/26/22 18:00 Sodium Bicarbonate 325 Mg Tab FEEDTUBE PRN PRN For Clogged Feeding Tube Sodium Chloride 10 ml 04/06/22 22:00 05/01/22 22:27 Sodium Chloride 0.9% 10 Ml Flush Syringe IV 10 ml BID SEAN Administration Sodium Chloride 10 ml 04/06/22 15:59 04/29/22 20:05 Sodium Chloride 0.9% 10 Ml Flush Syringe IV 10 ml PRN PRN Administration LINE FLUSH Valproic Acid 500 mg 04/30/22 12:00 05/01/22 19:01 Valproic Acid 250 Mg/5 Ml Oral Liqd PO 500 mg Q6H SEAN Administration Nutrition/Malnutrition Assess - Dietary Evaluation Nutrition/Malnutrition Findings: Nutrition Notes Start: 04/07/22 15:47 Freq: Status: Active Protocol: Document 04/28/22 14:43 FARIBA (Rec: 04/28/22 14:52 FARIBA [id number]) Nutrition Notes Initial or Follow up Brief Note Current Diagnosis Diabetes,Hypertension, Malnutrition Other Pertinent Diagnosis COVID-19, Debility, Dehydration, Metabolic Encephalopathy, Dementia ... Current Diet TF-Glucerna 1.2 Joss @ 45 ml/hr (from B 04/27). Height 5 ft 2 in Weight 45.2 kg [place] Body Weight (kg) 53.63 BMI 18.2 Weight change and time frame 2.9 Kg body weight gain in 2 day reported. Weight Status Underweight Subjective/Other Information RD consult for routine F/U on TF tolerance/continuation. TF continues as prescribed, and well tolerated, according to RN notes. RN note on 04/28/22 06:20: Pt alert and confused, resting, on 4L 02 (sats 95%), breaths even and unlabored, on barrie restraints, tolerating tube feeding infusing @ 45 ml/hr, Sean meds given, no acute distress. - END OF NOTE Pt is on Nasal Cannula, O2 saturation @ 95%, according to Physical Assessment History notes. Percent of energy/protein needs met: Prescribed TF-Glucerna 1.2 Joss @ 45 ml/hr provides for energy/protein needs (1,285 Kcal/64 g) during LOS, 100% Kcal; 100% AA. #1 Nutrition Diagnosis Inadequate protein-energy intake Comments: TF continues as prescribed, and well tolerated, according to RN notes. Diagnosis Progress(for reassessment Improved documentation) Is patient on ventilator? No Is Patient Ambulatory and/or Out of Bed No REE-([facility]-confined to bed) 1292.064 Calculation Used for Recommendations [facility] Additional Notes Protein: 1-1.2 g/Kg IBW; 54-65 g/day. Fluids: 1 ml/Kcal, or as per MD. Nutrition Intervention Nutrition Support: Continue TF-Glucerna 1.2 Joss @ 45 ml/hr. Flush: 70 ml water Q 4 hr, or as per MD. Kcal 1,285 Protein (gm) 64 Carbohydrates (gm) 123 Fat (gm) 64 Fluid (mL) 862 Fiber (gm) 17 % RDI: 100% Kcal; 100% AA. Goal #1 Provide at least 75% of energy /protein needs through Enteral Feeding during LOS. Follow-Up By: 05/05/22 Additional Comments Continue monitoring TF tolerance and BM.
[2022-05-02] MEDS: HYDROmorphone 0.5 MG/0.5 ML INJ IV PRN (10:57)
--- NOTE | 2022-05-02 11:08 | Progress Note ---
Subjective - Reason for Consult Consult date: 05/02/22 Reason for consult: agitation - Chief Complaint Chief complaint: The patient was seen today. He is lying in bed awake. He has on bilat wrist restraints. He is fidgety. He doesn't acknowledge me when I call his name. Will adjust medication regimen. REVIEW OF SYSTEMS Unable to assess MENTAL STATUS EXAMINATION Unable to assess Diagnoses: Dementia with behavioral disturbances Treatment Plan: Continue meds as prescribed Check Valproic level after 5 days, then weekly Medical: Per primary Sitter: Defer to primary Disposition: Do not recommend inpatient psych treatment at this time. Will follow for psych progress and med management Thank you Case staffed with Dr. Hebert Mental Status Exam - Vital signs Last Vital Signs Temp 97.9 F 05/02/22 05:33 Pulse 103 H 05/02/22 05:33 Resp 20 05/02/22 05:33 BP 156/77 05/02/22 05:33 Pulse Ox 100 05/02/22 07:36
[2022-05-02] MEDS: FLUTICASONE PROPIONATE NASAL SPRAY 16 GM NS SCH (11:30)
[2022-05-02] MEDS: HEPARIN 5,000 UNIT/1 ML VIAL SUB-Q SCH ×2 (11:30→22:16)
--- NOTE | 2022-05-02 13:17 | XRay Report ---
CHEST 1 VIEW 05/02/2022 12:44 PM INDICATION / CLINICAL INFORMATION: Verify Dobhoff Placement. COMPARISON: 2 days prior FINDINGS: SUPPORT DEVICES: Feeding tube tip is in the proximal stomach similar to the prior. HEART / MEDIASTINUM: No significant abnormality. LUNGS / PLEURA: There are mild patchy opacities in the mid to lower lungs bilaterally greater on the left. No pneumothorax. ADDITIONAL FINDINGS: No significant additional findings. IMPRESSION: 1. Feeding tube tip in the proximal stomach. 2. Patchy pulmonary opacities concerning for pneumonia. Signer Name: James English MD Signed: 05/02/2022 1:12 PM Workstation Name: [id number]
--- NOTE | 2022-05-02 17:07 | XRay Report ---
ABDOMEN, SINGLE VIEW INDICATION / CLINICAL INFORMATION: Verify Dobhoff placement. COMPARISON: Prior radiograph 04/28/2022 FINDINGS: Enteric feeding tube is present. The tip is within the midportion of the stomach and is in satisfacto ry position. IMPRESSION: 1. Satisfactory positioning of feeding tube. Signer Name: Soraida Treviño MD Signed: 05/02/2022 5:02 PM Workstation Name: [id number]
[2022-05-02] MEDS: HALOPERIDOL 5 MG TAB PO SCH ×3 (18:00→22:16)
[2022-05-02] MEDS: ASPIRIN 81 MG TAB CHEW PO SCH ×2 (18:00→18:42)
[2022-05-02] MEDS: CHOLECALCIFEROL (VIT D3) 1000 UNIT (25 mcg) TAB PO SCH ×2 (18:00→18:39)
[2022-05-02] MEDS: cefTRIAXone/NS 1 GM/50 ML 1 GM/50 ML BAG IV SCH (22:15)
[2022-05-02] MEDS: MIRTAZAPINE 15 MG TAB PO SCH (22:16)
[2022-05-03] MEDS: VALPROIC ACID 250 MG/5 ML ORAL LIQD PO SCH ×4 (05:04→18:58)
[2022-05-03 05:45] LABS: Basophils % (Auto) 0.4 % (0.0-1.8); Eosinophils # (Auto) 0.1 K/mm3 (0.0-0.4); Eosinophils % (Auto) 1.2 % (0.0-4.3); Hematocrit 35.3 % (35.5-45.6); Hemoglobin 12.4 gm/dl (11.8-15.2); Lymphocytes # (Auto) 0.7 K/mm3 (1.2-5.4); Lymphocytes % (Auto) 11.7 % (13.4-35.0); Mean Corpuscular HGB Conc 35 % (32-34); Mean Corpuscular Volume 91 fl (84-94); Monocytes # (Auto) 0.8 K/mm3 (0.0-0.8); Monocytes % (Auto) 13.1 % (0.0-7.3); Platelet Count 152 K/mm3 (140-440); Red Cell Distribution Width 13.2 % (13.2-15.2)
[2022-05-03 06:08] LABS: Alanine Aminotransferase 26 units/L (7-56); Albumin 2.5 g/dL (3.9-5); Blood Urea Nitrogen 17 mg/dL (9-20); Calcium 9.7 mg/dL (8.4-10.2); Hemolysis Index 26
[2022-05-03 06:23] LABS: BUN/Creatinine Ratio 28
[2022-05-03] MEDS: HALOPERIDOL LACTATE 5 MG/1 ML INJ IM PRN ×2 (08:23→22:04)
--- NOTE | 2022-05-03 08:34 | XRay Report ---
ABDOMEN 1 VIEW(S) INDICATION / CLINICAL INFORMATION: verify doboff for feeding. COMPARISON: Yesterday FINDINGS: TUBES / LINES: The distal tip of the Dobbhoff tube has advanced to the distal stomach but is not yet transpyloric. BOWEL GAS PATTERN: No significant abnormality. FREE AIR / EXTRALUMINAL GAS: None seen. ADDITIONAL FINDINGS: No significant additional findings. IMPRESSION: The feeding tube terminates in the antrum of the stomach. Signer Name: Rafi Clark Jr, MD Signed: 05/03/2022 8:30 AM Workstation Name: [id number]
--- NOTE | 2022-05-03 11:28 | Progress Note ---
Subjective - Reason for Consult Consult date: 05/03/22 Reason for consult: agitation - Chief Complaint Chief complaint: The patient was seen today. He is lying in bed awake. He is in restraints. He moans when I call his name. He is fidgety. Will adjust medication regimen. REVIEW OF SYSTEMS Unable to assess MENTAL STATUS EXAMINATION Unable to assess Diagnoses: Dementia with behavioral disturbances Treatment Plan: Continue meds as prescribed Check Valproic level after 5 days, then weekly Medical: Per primary Sitter: Defer to primary Disposition: Do not recommend inpatient psych treatment at this time. Will follow for psych progress and med management Thank you Case staffed with Dr. Hebert Mental Status Exam - Vital signs Last Vital Signs Temp 97.4 F L 05/03/22 06:18 Pulse 109 H 05/03/22 06:18 Resp 20 05/03/22 06:18 BP 157/92 05/03/22 06:18 Pulse Ox 98 05/03/22 09:45
[2022-05-03] MEDS: HALOPERIDOL 5 MG TAB PO SCH ×3 (11:29→22:28)
[2022-05-03] MEDS: ASPIRIN 81 MG TAB CHEW PO SCH (11:29)
[2022-05-03] MEDS: HEPARIN 5,000 UNIT/1 ML VIAL SUB-Q SCH ×2 (11:29→22:04)
[2022-05-03] MEDS: CHOLECALCIFEROL (VIT D3) 1000 UNIT (25 mcg) TAB PO SCH (11:29)
[2022-05-03] MEDS: FLUTICASONE PROPIONATE NASAL SPRAY 16 GM NS SCH (11:30)
[2022-05-03] MEDS: cloNIDine TTS 0.3 MG/24 HR PATCH TD SCH (13:23)
--- NOTE | 2022-05-03 17:34 | Progress Note ---
Assessment and Plan Brief history and daily hospital course 76 YO Male PMH with Vascular Dementia with Behavioral disturbance, Cerebral Atherosclerosis, DM, BPH, HTN, Malnutrition, Coronavirus Infection. Patient remains confused, lethargic with diminished cognition. Patient remains at baseline level of cognition and function. Hospice team consulted. Case management consulted. COVID-19 positive x4 04/13/2022; patient is lethargic sleepy, restraint for safety Continue current management, psych evaluation noted and appreciated 04/14/2022; patient is more alert today trying to pull , agitated On restraints, refusing to eat, consider Dobbhoff placement for tube feeding if needed 04/15/2022; COVID-19 positive[ 03/31 and 04/13] Check inflammatory markers, ID consulted Patient is refusing medications and diet Confused and agitated, Dobbhoff placement and tube feeding per protocol 04/16/2022; patient is more alert and awake Tolerating liquids, will advance the diet as tolerated Check physical therapy occupational therapy evaluation and recommendations DC planning per case management 04/17/2022; patient is on pured diet, Will advance the diet as tolerated 04/18/2022; recommend hospice, try to call next of kin the daughter many times Unable to reach, hospice consult inpatient versus home hospice versus SNF with hospice 04/19: Patient remains on restraint and confused. He is on 2 L nasal cannula O2. We will start on dexamethasone for 10 days. We will also Low-dose of Seroquel for agitation and anxiety. Continue to follow clinically, waiting on SNF placement 04/20: Cont seroquel, restraint as needed. follow clinically. still positive for Covid, cont dexamethasone, pending placement. No family info in the file. 04/21: remains restraint, patient o RA today, does not follow commend, added clonidine path for HTN, stopped iv fluid.follow clinically. 04/22: Patient remains in restraints. Patient currently on room air with saturations at 96%. Patient remains confused and does not follow commands. Blood pressure much better controlled. Continue current regimen. Please review case management notes from 04/20. Caregiver currently unable to accept the patient at home until they find a place that can meet his needs. 04/23: Patient remains confused. Continue current regimen. Awaiting placement. 04/24: Continue dexamethasone and supplemental O2. Patient currently requiring 4 L O2 with saturations of 99%. Patient remains confused. Psychiatry recommends valproic acid, Remeron and Seroquel. Case management reports patient has not received any acceptances to [facility]. Patient previously lived alone in an RV. At this time, patient is unable to live alone and caregiver is unable to care for the patient until they find a place that can meet his needs. 04/25: Continue dexamethasone and supplemental O2. Patient remains on 4 L O2 with saturations of 99%. Patient remains confused and does not follow commands. Patient still requiring restraints. Psychiatry recommends valproic acid, Remeron and Seroquel. Case management reports patient has not received any acceptances to [facility]. Patient previously lived alone in an RV. At this time, patient is unable to live alone and caregiver is unable to care for the patient until they find a place that can meet his needs. ; pending placement, continue current management Place Dobbhoff feeding tube, nutrition consult for tube feeding Monitor closely and adjust the management as needed 04/27; patient is receiving Dobbhoff feeds, check speech therapy for swallow evaluation If abnormal consider PEG placement, will try to contact family Daughter Lorenza Beauchamp To discuss the goals of treatment and discharge planning Pending [facility] with hospice. Hypernatremia Free water via Dobbhoff 04/28/2022; speech evaluated the patient, patient is unable to follow swallow eval Patient needs PEG placement, however no family available to give consent Case management to assist with dressing any family, if not available will check with the ethics committee For assistance. Difficult to discharge/placement as patient has no next of kin available. 04/29/2022; crooks PCR test third time today's positive. Continue tube feeding, DC planning, no family or contact available 04/30/22; patient pulled out Dobbhoff tube last night We will replace Dobbhoff tube start feeding as tolerated Still do not have any contact with the family members 05/01/2022; continue Dobbhoff feeds, restraints for safety DC planning[difficult to place due to social/no family reasons] 05/02/2022; restraints for safety, Dobbhoff feeds, awaiting placement Multiple social issues, no family available, COVID-19 x4 05/03/2022: Remains restrained, chest x-ray last night suggestive for Infiltrate versus atelectasis. Antibiotic started for possible aspiration pneumonia. Pending placement, continue to follow Assessment and plan: -- COVID-19 positivex4 03/31/2022, 04/13/2022,04/20/22 and, 04/29/2022 Isolation precautions and protocols vitamin C therapy, vitamin D therapy, zinc therapy, supplemental oxygen, pulse oximetry, prophylactic anticoagulation. On dexamethasone as intermittently needed O2 Follow-up inflammatory markers, ID consulted: recommended supportive care --HTN, added clonidine patch --Possible aspiration pneumonia, continue empiric antibiotics, follow clinically --Vascular dementia with behavioral disturbance Verbal prompting, verbal redirection, benzodiazepine therapy as clinically indicated. --Cerebral atherosclerosis Risk factor reduction, antiplatelet therapy, supportive care. --General debility Bed alarm, fall precautions, supportive care. Physical therapy occupational therapy -- Mild to moderate malnutrition Increase protein intake, dietary supplementation when awake and alert only. Aspiration precautions. --Nicotine dependence Smoking cessation counseled, supportive care, behavior change counseled, pulse 50 minutes. --Volume depletion/dehydration IV fluids and supportive care, increase oral fluids --Metabolic encephalopathy Multifactorial , underlying dementia , malnutrition , advanced age COVID-19 infection , psych problems Treat underlying cause and supportive care --DVT prophylaxis SCD to bilateral extremities while in bed, prophylactic anticoagulation --Advance care planning patient is full code at this time. Discussed patient care with Quynh Laboymono, . The plan is to make patient DNR and plan for disc harge to nursing home facility with hospice care. Awaiting arrival of Ms. Britt to the [facility] for family conference. According to CM no family has been reported. Please closely monitor the patient and adjust the management as needed Plan of care reviewed with the patient's nurse DC planning per case management Disposition; continue current management, DC planning per case management and family Subjective Date of service: 05/03/22 Principal diagnosis: Acute resp failure with Hypoxia,Covid pneumonia Interval history: Patient seen and examined Discussed plan of care with nursing staff and clinical case manager No new events reported by the nursing staff, Patient is sometimes agitated requiring restraints Vital signs noted, Pending placement Objective - Exam Narrative Exam: General appearance: Present: no acute distress, cachectic, other (restrained for safety) - EENT Eyes: Present: PERRL, EOM intact - Neck Neck: Present: supple, normal ROM - Respiratory Respiratory effort: normal Respiratory: bilateral: diminished, negative: rales, rhonchi, wheezing - Cardiovascular Rhythm: regular Heart Sounds: Present: S1 & S2 - Extremities Extremities: no ischemia, No edema - Abdominal General gastrointestinal: soft, non-tender, non-distended, normal bowel sounds - Integumentary Integumentary: Present: clear, warm - Psychiatric Psychiatric: agitated, other - Neurologic Neurologic: moves all extremities (Confused) - Constitutional Vitals: Vital Signs - 12hr 05/03/22 05/03/22 05/03/22 06:18 09:45 11:59 Temperature 97.4 F L Pulse Rate 109 H 114 H Respiratory 20 18 Rate Blood Pressure 157/92 [Left] Blood Pressure 156/56 [Right] O2 Sat by Pulse 95 98 94 Oximetry 05/03/22 13:25 Temperature 97.7 F Pulse Rate Respiratory Rate Blood Pressure [Left] Blood Pressure [Right] O2 Sat by Pulse Oximetry - Labs CBC & Chem 7: 05/03/22 04:53 05/03/22 04:53 Labs: Abnormal lab results 05/03/22 05/03/22 05/03/22 Range/Units 04:53 04:53 06:13 Hct 35.3 L (35.5-45.6) % MCHC 35 H (32-34) % Lymph % (Auto) 11.7 L (13.4-35.0) % Phillips % (Auto) 13.1 H (0.0-7.3) % Lymph # (Auto) 0.7 L (1.2-5.4) K/mm3 Seg Neutrophils % 73.6 H (40.0-70.0) % Chloride 96.3 L (98-107) mmol/L Carbon Dioxide 33 H (22-30) mmol/L Creatinine 0.6 L (0.8-1.3) mg/dL Glucose 109 H (75-100) mg/dL POC Glucose 109 H (70-105) mg/dL Total Protein 6.0 L (6.3-8.2) g/dL Albumin 2.5 L (3.9-5) g/dL 05/03/22 Range/Units 12:08 Hct (35.5-45.6) % MCHC (32-34) % Lymph % (Auto) (13.4-35.0) % Phillips % (Auto) (0.0-7.3) % Lymph # (Auto) (1.2-5.4) K/mm3 Seg Neutrophils % (40.0-70.0) % Chloride (98-107) mmol/L Carbon Dioxide (22-30) mmol/L Creatinine (0.8-1.3) mg/dL Glucose (75-100) mg/dL POC Glucose 127 H (70-105) mg/dL Total Protein (6.3-8.2) g/dL Albumin (3.9-5) g/dL
[2022-05-03] MEDS: cefTRIAXone/NS 1 GM/50 ML 1 GM/50 ML BAG IV SCH (22:03)
[2022-05-03] MEDS: MIRTAZAPINE 15 MG TAB PO SCH (22:04)
[2022-05-04] MEDS: VALPROIC ACID 250 MG/5 ML ORAL LIQD PO SCH ×4 (01:28→17:47)
[2022-05-04] MEDS: CHOLECALCIFEROL (VIT D3) 1000 UNIT (25 mcg) TAB PO SCH (09:39)
[2022-05-04] MEDS: ASPIRIN 81 MG TAB CHEW PO SCH (09:39)
[2022-05-04] MEDS: HALOPERIDOL 5 MG TAB PO SCH ×3 (09:39→22:01)
[2022-05-04] MEDS: HEPARIN 5,000 UNIT/1 ML VIAL SUB-Q SCH ×2 (09:40→22:02)
[2022-05-04] MEDS: FLUTICASONE PROPIONATE NASAL SPRAY 16 GM NS SCH (09:50)
--- NOTE | 2022-05-04 12:47 | Progress Note ---
Subjective - Reason for Consult Consult date: 05/04/22 Reason for consult: agitation - Chief Complaint Chief complaint: The patient was seen today. He is somnolent, and doesn't respond when I call his name. He is in restraints. Will adjust medication regimen. REVIEW OF SYSTEMS Unable to assess MENTAL STATUS EXAMINATION Unable to assess Diagnoses: Dementia with behavioral disturbances Treatment Plan: Continue meds as prescribed Valproic level 05/05/22 Medical: Per primary Sitter: Defer to primary Disposition: Do not recommend inpatient psych treatment at this time. Will follow for psych progress and med management Thank you Case staffed with Dr. Hebert Mental Status Exam - Vital signs Last Vital Signs Temp 98.1 F 05/03/22 23:26 Pulse 110 H 05/03/22 23:26 Resp 18 05/03/22 23:26 BP 142/67 05/03/22 23:26 Pulse Ox 97 05/04/22 10:00
--- NOTE | 2022-05-04 15:33 | Progress Note ---
Assessment and Plan Brief history and daily hospital course 76 YO Male PMH with Vascular Dementia with Behavioral disturbance, Cerebral Atherosclerosis, DM, BPH, HTN, Malnutrition, Coronavirus Infection. Patient remains confused, lethargic with diminished cognition. Patient remains at baseline level of cognition and function. Hospice team consulted. Case management consulted. COVID-19 positive x4 04/13/2022; patient is lethargic sleepy, restraint for safety Continue current management, psych evaluation noted and appreciated 04/14/2022; patient is more alert today trying to pull , agitated On restraints, refusing to eat, consider Dobbhoff placement for tube feeding if needed 04/15/2022; COVID-19 positive[ 03/31 and 04/13] Check inflammatory markers, ID consulted Patient is refusing medications and diet Confused and agitated, Dobbhoff placement and tube feeding per protocol 04/16/2022; patient is more alert and awake Tolerating liquids, will advance the diet as tolerated Check physical therapy occupational therapy evaluation and recommendations DC planning per case management 04/17/2022; patient is on pured diet, Will advance the diet as tolerated 04/18/2022; recommend hospice, try to call next of kin the daughter many times Unable to reach, hospice consult inpatient versus home hospice versus SNF with hospice 04/19: Patient remains on restraint and confused. He is on 2 L nasal cannula O2. We will start on dexamethasone for 10 days. We will also Low-dose of Seroquel for agitation and anxiety. Continue to follow clinically, waiting on SNF placement 04/20: Cont seroquel, restraint as needed. follow clinically. still positive for Covid, cont dexamethasone, pending placement. No family info in the file. 04/21: remains restraint, patient o RA today, does not follow commend, added clonidine path for HTN, stopped iv fluid.follow clinically. 04/22: Patient remains in restraints. Patient currently on room air with saturations at 96%. Patient remains confused and does not follow commands. Blood pressure much better controlled. Continue current regimen. Please review case management notes from 04/20. Caregiver currently unable to accept the patient at home until they find a place that can meet his needs. 04/23: Patient remains confused. Continue current regimen. Awaiting placement. 04/24: Continue dexamethasone and supplemental O2. Patient currently requiring 4 L O2 with saturations of 99%. Patient remains confused. Psychiatry recommends valproic acid, Remeron and Seroquel. Case management reports patient has not received any acceptances to residential. Patient previously lived alone in an RV. At this time, patient is unable to live alone and caregiver is unable to care for the patient until they find a place that can meet his needs. 04/25: Continue dexamethasone and supplemental O2. Patient remains on 4 L O2 with saturations of 99%. Patient remains confused and does not follow commands. Patient still requiring restraints. Psychiatry recommends valproic acid, Remeron and Seroquel. Case management reports patient has not received any acceptances to residential. Patient previously lived alone in an RV. At this time, patient is unable to live alone and caregiver is unable to care for the patient until they find a place that can meet his needs. ; pending placement, continue current management Place Dobbhoff feeding tube, nutrition consult for tube feeding Monitor closely and adjust the management as needed 04/27; patient is receiving Dobbhoff feeds, check speech therapy for swallow evaluation If abnormal consider PEG placement, will try to contact family Daughter Lorenza Beauchamp To discuss the goals of treatment and discharge planning Pending residential with hospice. Hypernatremia Free water via Dobbhoff 04/28/2022; speech evaluated the patient, patient is unable to follow swallow eval Patient needs PEG placement, however no family available to give consent Case management to assist with dressing any family, if not available will check with the ethics committee For assistance. Difficult to discharge/placement as patient has no next of kin available. 04/29/2022; crooks PCR test third time today's positive. Continue tube feeding, DC planning, no family or contact available 04/30/22; patient pulled out Dobbhoff tube last night We will replace Dobbhoff tube start feeding as tolerated Still do not have any contact with the family members 05/01/2022; continue Dobbhoff feeds, restraints for safety DC planning[difficult to place due to social/no family reasons] 05/02/2022; restraints for safety, Dobbhoff feeds, awaiting placement Multiple social issues, no family available, COVID-19 x4 05/03/2022: Remains restrained, chest x-ray last night suggestive for Infiltrate versus atelectasis. Antibiotic started for possible aspiration pneumonia. Pending placement, continue to follow Assessment and plan: -- COVID-19 positivex4 03/31/2022, 04/13/2022,04/20/22 and, 04/29/2022 Isolation precautions and protocols vitamin C therapy, vitamin D therapy, zinc therapy, supplemental oxygen, pulse oximetry, prophylactic anticoagulation. On dexamethasone as intermittently needed O2 Follow-up inflammatory markers, ID consulted: recommended supportive care --HTN, added clonidine patch --Possible aspiration pneumonia, continue empiric antibiotics, follow clinically --Vascular dementia with behavioral disturbance Verbal prompting, verbal redirection, benzodiazepine therapy as clinically indicated. --Cerebral atherosclerosis Risk factor reduction, antiplatelet therapy, supportive care. --General debility Bed alarm, fall precautions, supportive care. Physical therapy occupational therapy -- Mild to moderate malnutrition Increase protein intake, dietary supplementation when awake and alert only. Aspiration precautions. --Nicotine dependence Smoking cessation counseled, supportive care, behavior change counseled, pulse 50 minutes. --Volume depletion/dehydration IV fluids and supportive care, increase oral fluids --Metabolic encephalopathy Multifactorial , underlying dementia , malnutrition , advanced age COVID-19 infection , psych problems Treat underlying cause and supportive care --DVT prophylaxis SCD to bilateral extremities while in bed, prophylactic anticoagulation --Advance care planning patient is full code at this time. Discussed patient care with Quynh Laboymono, . The plan is to make patient DNR and plan for disc harge to group home facility with hospice care. Awaiting arrival of Ms. Britt to the [facility] for family conference. According to CM no family has been reported. Please closely monitor the patient and adjust the management as needed Plan of care reviewed with the patient's nurse DC planning per case management Disposition; continue current management, DC planning per case management and family Subjective Date of service: 05/04/22 Principal diagnosis: Acute resp failure with Hypoxia,Covid pneumonia Interval history: Patient seen and examined Discussed plan of care with nursing staff and shelter case manager No new events reported by the nursing staff, Patient is sometimes agitated requiring restraints Vital signs noted, Pending placement Objective - Constitutional Vitals: Vital Signs - 12hr 05/04/22 10:00 O2 Sat by Pulse 97 Oximetry - Labs CBC & Chem 7: 05/03/22 04:53 05/03/22 04:53 Labs: Abnormal lab results 05/03/22 05/04/22 05/04/22 Range/Units 23:02 05:49 12:21 POC Glucose 123 H 139 H 143 H (70-105) mg/dL
[2022-05-04] MEDS: MIRTAZAPINE 15 MG TAB PO SCH (22:01)
[2022-05-04] MEDS: AMOXICILLIN/K CLAV 875/125MG TAB PO SCH (22:01)
[2022-05-05] MEDS: VALPROIC ACID 250 MG/5 ML ORAL LIQD PO SCH ×3 (00:53→22:16)
[2022-05-05] MEDS: ASPIRIN 81 MG TAB CHEW PO SCH (09:48)
[2022-05-05] MEDS: CHOLECALCIFEROL (VIT D3) 1000 UNIT (25 mcg) TAB PO SCH (09:48)
[2022-05-05] MEDS: AMOXICILLIN/K CLAV 875/125MG TAB PO SCH (09:48)
[2022-05-05] MEDS: FLUTICASONE PROPIONATE NASAL SPRAY 16 GM NS SCH (09:48)
[2022-05-05] MEDS: HALOPERIDOL 5 MG TAB PO SCH ×3 (09:48→20:16)
[2022-05-05] MEDS: HEPARIN 5,000 UNIT/1 ML VIAL SUB-Q SCH ×2 (09:49→22:17)
--- NOTE | 2022-05-05 11:45 | Progress Note ---
Subjective - Reason for Consult Consult date: 05/05/22 Reason for consult: agitation - Chief Complaint Chief complaint: The patient was seen today. He is doesn't respond when I call his name. He is in restraints. He has TF going. Will adjust medication regimen. REVIEW OF SYSTEMS Unable to assess MENTAL STATUS EXAMINATION Unable to assess Diagnoses: Dementia with behavioral disturbances Treatment Plan: Valproic level 131 Decrease Depakote 500mg po BID Medical: Per primary Sitter: Defer to primary Disposition: Do not recommend inpatient psych treatment at this time. Will follow for psych progress and med management Thank you Case staffed with Dr. Hebert Mental Status Exam - Vital signs Last Vital Signs Temp 97.9 F 05/05/22 09:53 Pulse 102 H 05/05/22 00:49 Resp 18 05/05/22 10:00 BP 144/67 05/05/22 09:53 Pulse Ox 97 05/05/22 10:00
--- NOTE | 2022-05-05 12:15 | Progress Note ---
Assessment and Plan Brief history and daily hospital course 76 YO Male PMH with Vascular Dementia with Behavioral disturbance, Cerebral Atherosclerosis, DM, BPH, HTN, Malnutrition, Coronavirus Infection. Patient remains confused, lethargic with diminished cognition. Patient remains at baseline level of cognition and function. Hospice team consulted. Case management consulted. COVID-19 positive x4 04/13/2022; patient is lethargic sleepy, restraint for safety Continue current management, psych evaluation noted and appreciated 04/14/2022; patient is more alert today trying to pull , agitated On restraints, refusing to eat, consider Dobbhoff placement for tube feeding if needed 04/15/2022; COVID-19 positive[ 03/31 and 04/13] Check inflammatory markers, ID consulted Patient is refusing medications and diet Confused and agitated, Dobbhoff placement and tube feeding per protocol 04/16/2022; patient is more alert and awake Tolerating liquids, will advance the diet as tolerated Check physical therapy occupational therapy evaluation and recommendations DC planning per case management 04/17/2022; patient is on pured diet, Will advance the diet as tolerated 04/18/2022; recommend hospice, try to call next of kin the daughter many times Unable to reach, hospice consult inpatient versus home hospice versus SNF with hospice 04/19: Patient remains on restraint and confused. He is on 2 L nasal cannula O2. We will start on dexamethasone for 10 days. We will also Low-dose of Seroquel for agitation and anxiety. Continue to follow clinically, waiting on SNF placement 04/20: Cont seroquel, restraint as needed. follow clinically. still positive for Covid, cont dexamethasone, pending placement. No family info in the file. 04/21: remains restraint, patient o RA today, does not follow commend, added clonidine path for HTN, stopped iv fluid.follow clinically. 04/22: Patient remains in restraints. Patient currently on room air with saturations at 96%. Patient remains confused and does not follow commands. Blood pressure much better controlled. Continue current regimen. Please review case management notes from 04/20. Caregiver currently unable to accept the patient at home until they find a place that can meet his needs. 04/23: Patient remains confused. Continue current regimen. Awaiting placement. 04/24: Continue dexamethasone and supplemental O2. Patient currently requiring 4 L O2 with saturations of 99%. Patient remains confused. Psychiatry recommends valproic acid, Remeron and Seroquel. Case management reports patient has not received any acceptances to [facility]. Patient previously lived alone in an RV. At this time, patient is unable to live alone and caregiver is unable to care for the patient until they find a place that can meet his needs. 04/25: Continue dexamethasone and supplemental O2. Patient remains on 4 L O2 with saturations of 99%. Patient remains confused and does not follow commands. Patient still requiring restraints. Psychiatry recommends valproic acid, Remeron and Seroquel. Case management reports patient has not received any acceptances to [facility]. Patient previously lived alone in an RV. At this time, patient is unable to live alone and caregiver is unable to care for the patient until they find a place that can meet his needs. ; pending placement, continue current management Place Dobbhoff feeding tube, nutrition consult for tube feeding Monitor closely and adjust the management as needed 04/27; patient is receiving Dobbhoff feeds, check speech therapy for swallow evaluation If abnormal consider PEG placement, will try to contact family Daughter Lorenza Beauchamp To discuss the goals of treatment and discharge planning Pending [facility] with hospice. Hypernatremia Free water via Dobbhoff 04/28/2022; speech evaluated the patient, patient is unable to follow swallow eval Patient needs PEG placement, however no family available to give consent Case management to assist with dressing any family, if not available will check with the ethics committee For assistance. Difficult to discharge/placement as patient has no next of kin available. 04/29/2022; crooks PCR test third time today's positive. Continue tube feeding, DC planning, no family or contact available 04/30/22; patient pulled out Dobbhoff tube last night We will replace Dobbhoff tube start feeding as tolerated Still do not have any contact with the family members 05/01/2022; continue Dobbhoff feeds, restraints for safety DC planning[difficult to place due to social/no family reasons] 05/02/2022; restraints for safety, Dobbhoff feeds, awaiting placement Multiple social issues, no family available, COVID-19 x4 05/03/2022: Remains restrained, chest x-ray last night suggestive for Infiltrate versus atelectasis. Antibiotic started for possible aspiration pneumonia. Pending placement, continue to follow 05/04/22: -- Changed antibiotic to Augmentin, continue to follow clinically, pending placement 05/05/22; Valproic level 131. Decreased Depakote 500mg po BID, cont to follow, pending placement Assessment and plan: -- COVID-19 positivex4 03/31/2022, 04/13/2022,04/20/22 and, 04/29/2022 Isolation precautions and protocols vitamin C therapy, vitamin D therapy, zinc therapy, supplemental oxygen, pulse oximetry, prophylactic anticoagulation. On dexamethasone as intermittently needed O2 Follow-up inflammatory markers, ID consulted: recommended supportive care --HTN, added clonidine patch --Possible aspiration pneumonia, continue empiric antibiotics, follow clinically --Vascular dementia with behavioral disturbance Verbal prompting, verbal redirection, benzodiazepine therapy as clinically indicated. --Cerebral atherosclerosis Risk factor reduction, antiplatelet therapy, supportive care. --General debility Bed alarm, fall precautions, supportive care. Physical therapy occupational therapy -- Mild to moderate malnutrition Increase protein intake, dietary supplementation when awake and alert only. As piration precautions. --Nicotine dependence Smoking cessation counseled, supportive care, behavior change counseled, pulse 50 minutes. --Volume depletion/dehydration IV fluids and supportive care, increase oral fluids --Metabolic encephalopathy Multifactorial , underlying dementia , malnutrition , advanced age COVID-19 infection , psych problems Treat underlying cause and supportive care --DVT prophylaxis SCD to bilateral extremities while in bed, prophylactic anticoagulation --Advance care planning patient is full code at this time. Discussed patient care with Quynh Laboymono, . The plan is to make patient DNR and plan for discharge to senior living facility with hospice care. Awaiting arrival of Ms. Britt to the [facility] for family conference. According to CM no family has been reported. Please closely monitor the patient and adjust the management as needed Plan of care reviewed with the patient's nurse DC planning per case management Disposition; continue current management, DC planning per case management and family Subjective Date of service: 05/05/22 Principal diagnosis: Acute resp failure with Hypoxia,Covid pneumonia Interval history: Patient seen and examined Discussed plan of care with nursing staff and hospice case manager No new events reported by the nursing staff, Patient is sometimes agitated requiring restraints Vital signs noted, Pending placement Objective - Exam Narrative Exam: General appearance: Present: no acute distress, cachectic, other (restrained for safety) - EENT Eyes: Present: PERRL, EOM intact - Neck Neck: Present: supple, normal ROM - Respiratory Respiratory effort: normal Respiratory: bilateral: diminished, negative: rales, rhonchi, wheezing - Cardiovascular Rhythm: regular Heart Sounds: Present: S1 & S2 - Extremities Extremities: no ischemia, No edema - Abdominal General gastrointestinal: soft, non-tender, non-distended, normal bowel sounds - Integumentary Integumentary: Present: clear, warm - Psychiatric Psychiatric: agitated, other - Neurologic Neurologic: moves all extremities (Confused) - Constitutional Vitals: Vital Signs - 12hr 05/05/22 05/05/22 05/05/22 00:49 09:53 10:00 Temperature 97.9 F Pulse Rate 102 H Respiratory 20 20 18 Rate Blood Pressure 152/97 144/67 O2 Sat by Pulse 94 97 Oximetry - Labs CBC & Chem 7: 05/03/22 04:53 05/03/22 04:53 Labs: Abnormal lab results 05/04/22 05/04/22 05/04/22 Range/Units 12:21 16:52 23:38 POC Glucose 143 H 106 H 138 H (70-105) mg/dL Valproic Acid (50-100) ug/mL 05/05/22 05/05/22 05/05/22 Range/Units 06:05 06:19 11:22 POC Glucose 120 H 115 H (70-105) mg/dL Valproic Acid 131.8 H (50-100) ug/mL
[2022-05-05] MEDS: AMOXICILLIN/K CLAV 875/125MG TAB FEEDTUBE SCH (22:16)
[2022-05-05] MEDS: MIRTAZAPINE 15 MG TAB PO SCH (22:16)
[2022-05-06 05:43] LABS: Basophils % (Auto) 0.4 % (0.0-1.8); Eosinophils % (Auto) 0.2 % (0.0-4.3); Hematocrit 35.2 % (35.5-45.6); Hemoglobin 12.1 gm/dl (11.8-15.2); Lymphocytes # (Auto) 0.9 K/mm3 (1.2-5.4); Lymphocytes % (Auto) 9.9 % (13.4-35.0); Mean Corpuscular HGB Conc 34 % (32-34); Mean Corpuscular Volume 91 fl (84-94); Monocytes # (Auto) 1.2 K/mm3 (0.0-0.8); Monocytes % (Auto) 13.6 % (0.0-7.3); Platelet Count 228 K/mm3 (140-440); Red Blood Count 3.85 M/mm3 (3.65-5.03); Red Cell Distribution Width 12.7 % (13.2-15.2)
[2022-05-06 06:03] LABS: BUN/Creatinine Ratio 33; Blood Urea Nitrogen 36 mg/dL (9-20); Calcium 9.9 mg/dL (8.4-10.2); Hemolysis Index 6
[2022-05-06] MEDS: AMOXICILLIN/K CLAV 875/125MG TAB FEEDTUBE SCH ×2 (09:54→22:31)
[2022-05-06] MEDS: ASPIRIN 81 MG TAB CHEW PO SCH (09:54)
[2022-05-06] MEDS: VALPROIC ACID 250 MG/5 ML ORAL LIQD PO SCH ×2 (09:54→22:31)
[2022-05-06] MEDS: HALOPERIDOL 5 MG TAB PO SCH ×3 (09:55→22:39)
[2022-05-06] MEDS: HEPARIN 5,000 UNIT/1 ML VIAL SUB-Q SCH ×2 (09:55→22:32)
[2022-05-06] MEDS: CHOLECALCIFEROL (VIT D3) 1000 UNIT (25 mcg) TAB PO SCH (09:55)
[2022-05-06] MEDS: FLUTICASONE PROPIONATE NASAL SPRAY 16 GM NS SCH (09:55)
--- NOTE | 2022-05-06 13:54 | Progress Note ---
Assessment and Plan Brief history and daily hospital course 76 YO Male PMH with Vascular Dementia with Behavioral disturbance, Cerebral Atherosclerosis, DM, BPH, HTN, Malnutrition, Coronavirus Infection. Patient remains confused, lethargic with diminished cognition. Patient remains at baseline level of cognition and function. Hospice team consulted. Case management consulted. COVID-19 positive x4 04/13/2022; patient is lethargic sleepy, restraint for safety Continue current management, psych evaluation noted and appreciated 04/14/2022; patient is more alert today trying to pull , agitated On restraints, refusing to eat, consider Dobbhoff placement for tube feeding if needed 04/15/2022; COVID-19 positive[ 03/31 and 04/13] Check inflammatory markers, ID consulted Patient is refusing medications and diet Confused and agitated, Dobbhoff placement and tube feeding per protocol 04/16/2022; patient is more alert and awake Tolerating liquids, will advance the diet as tolerated Check physical therapy occupational therapy evaluation and recommendations DC planning per case management 04/17/2022; patient is on pured diet, Will advance the diet as tolerated 04/18/2022; recommend hospice, try to call next of kin the daughter many times Unable to reach, hospice consult inpatient versus home hospice versus SNF with hospice 04/19: Patient remains on restraint and confused. He is on 2 L nasal cannula O2. We will start on dexamethasone for 10 days. We will also Low-dose of Seroquel for agitation and anxiety. Continue to follow clinically, waiting on SNF placement 04/20: Cont seroquel, restraint as needed. follow clinically. still positive for Covid, cont dexamethasone, pending placement. No family info in the file. 04/21: remains restraint, patient o RA today, does not follow commend, added clonidine path for HTN, stopped iv fluid.follow clinically. 04/22: Patient remains in restraints. Patient currently on room air with saturations at 96%. Patient remains confused and does not follow commands. Blood pressure much better controlled. Continue current regimen. Please review case management notes from 04/20. Caregiver currently unable to accept the patient at home until they find a place that can meet his needs. 04/23: Patient remains confused. Continue current regimen. Awaiting placement. 04/24: Continue dexamethasone and supplemental O2. Patient currently requiring 4 L O2 with saturations of 99%. Patient remains confused. Psychiatry recommends valproic acid, Remeron and Seroquel. Case management reports patient has not received any acceptances to [facility]. Patient previously lived alone in an RV. At this time, patient is unable to live alone and caregiver is unable to care for the patient until they find a place that can meet his needs. 04/25: Continue dexamethasone and supplemental O2. Patient remains on 4 L O2 with saturations of 99%. Patient remains confused and does not follow commands. Patient still requiring restraints. Psychiatry recommends valproic acid, Remeron and Seroquel. Case management reports patient has not received any acceptances to [facility]. Patient previously lived alone in an RV. At this time, patient is unable to live alone and caregiver is unable to care for the patient until they find a place that can meet his needs. ; pending placement, continue current management Place Dobbhoff feeding tube, nutrition consult for tube feeding Monitor closely and adjust the management as needed 04/27; patient is receiving Dobbhoff feeds, check speech therapy for swallow evaluation If abnormal consider PEG placement, will try to contact family Daughter Lorenza Beauchamp To discuss the goals of treatment and discharge planning Pending [facility] with hospice. Hypernatremia Free water via Dobbhoff 04/28/2022; speech evaluated the patient, patient is unable to follow swallow eval Patient needs PEG placement, however no family available to give consent Case management to assist with dressing any family, if not available will check with the ethics committee For assistance. Difficult to discharge/placement as patient has no next of kin available. 04/29/2022; crooks PCR test third time today's positive. Continue tube feeding, DC planning, no family or contact available 04/30/22; patient pulled out Dobbhoff tube last night We will replace Dobbhoff tube start feeding as tolerated Still do not have any contact with the family members 05/01/2022; continue Dobbhoff feeds, restraints for safety DC planning[difficult to place due to social/no family reasons] 05/02/2022; restraints for safety, Dobbhoff feeds, awaiting placement Multiple social issues, no family available, COVID-19 x4 05/03/2022: Remains restrained, chest x-ray last night suggestive for Infiltrate versus atelectasis. Antibiotic started for possible aspiration pneumonia. Pending placement, continue to follow 05/04/22: -- Changed antibiotic to Augmentin, continue to follow clinically, pending placement 05/05/22; Valproic level 131. Decreased Depakote 500mg po BID, cont to follow, pending placement. COVID test came is negative today. 05/06/22: Patient off isolation today, continue tube feeding. Pending placement. Patient is chronic metabolic encephalopathy with agitation requiring restraint and scheduled Haldol, 22/05 total care, tube feeding dependent, high risk for aspiration, unable to follow any commands, with extremely poor prognosis. Patie nt need hospice care. But no family member found to sign up for hospice. Continue to follow clinically with supportive care. Assessment and plan: -- COVID-19 positivex4 03/31/2022, 04/13/2022,04/20/22 and, 04/29/2022 Test negative on 05/05/22 s/p isolation precautions and protocols vitamin C therapy, vitamin D therapy, zinc therapy, supplemental oxygen, pulse oximetry, prophylactic anticoagulation. On dexamethasone as intermittently needed O2 Follow-up inflammatory markers, ID consulted: recommended supportive care --HTN, added clonidine patch --Possible aspiration pneumonia, continue empiric antibiotics, follow clinically --Vascular dementia with behavioral disturbance Verbal prompting, verbal redirection, benzodiazepine therapy as clinically indicated. --Cerebral atherosclerosis Risk factor reduction, antiplatelet therapy, supportive care. --General debility Bed alarm, fall precautions, supportive care. Physical therapy occupational therapy -- Mild to moderate malnutrition Increase protein intake, dietary supplementation when awake and alert only. Aspiration precautions. --Nicotine dependence Smoking cessation counseled, supportive care, behavior change counseled, pulse 50 minutes. --Volume depletion/dehydration IV fluids and supportive care, increase oral fluids --Metabolic encephalopathy Multifactorial , underlying dementia , malnutrition , advanced age COVID-19 infection , psych problems Treat underlying cause and supportive care --DVT prophylaxis SCD to bilateral extremities while in bed, prophylactic anticoagulation --Advance care planning patient is full code at this time. Discussed patient care with Quynh Lorenza, . The plan is to make patient DNR and plan for di scharge to shelter facility with hospice care. Awaiting arrival of Ms. Britt to the [facility] for family conference. According to CM no family has been reported. Please closely monitor the patient and adjust the management as needed Plan of care reviewed with the patient's nurse DC planning per case management Disposition; continue current management, DC planning per case management and family Subjective Date of service: 05/06/22 Principal diagnosis: Acute resp failure with Hypoxia,Covid pneumonia Interval history: Patient seen and examined Discussed plan of care with nursing staff and nurse case manager No new events reported by the nursing staff, Patient is sometimes agitated requiring restraints Vital signs noted, Pending placement negative for Covid Objective - Exam Narrative Exam: General appearance: Present: no acute distress, cachectic, other (restrained for safety) - EENT Eyes: Present: PERRL, EOM intact - Neck Neck: Present: supple, normal ROM - Respiratory Respiratory effort: normal Respiratory: bilateral: diminished, negative: rales, rhonchi, wheezing - Cardiovascular Rhythm: regular Heart Sounds: Present: S1 & S2 - Extremities Extremities: no ischemia, No edema - Abdominal General gastrointestinal: soft, non-tender, non-distended, normal bowel sounds - Integumentary Integumentary: Present: clear, warm - Psychiatric Psychiatric: agitated, other - Neurologic Neurologic: moves all extremities (Confused) - Constitutional Vitals: Vital Signs - 12hr 05/06/22 05/06/22 05/06/22 06:11 10:00 11:34 Temperature 97.1 F L Pulse Rate 106 H Respiratory 22 24 Rate Blood Pressure 106/51 O2 Sat by Pulse 95 97 93 Oximetry - Labs CBC & Chem 7: 05/06/22 04:47 05/06/22 04:47 Labs: Abnormal lab results 05/05/22 05/06/22 05/06/22 Range/Units 17:58 00:14 04:47 Hct 35.2 L (35.5-45.6) % RDW 12.7 L (13.2-15.2) % Lymph % (Auto) 9.9 L (13.4-35.0) % Garrard % (Auto) 13.6 H (0.0-7.3) % Lymph # (Auto) 0.9 L (1.2-5.4) K/mm3 Garrard # (Auto) 1.2 H (0.0-0.8) K/mm3 Seg Neutrophils % 75.9 H (40.0-70.0) % Carbon Dioxide (22-30) mmol/L BUN (9-20) mg/dL Glucose (75-100) mg/dL POC Glucose 127 H 128 H (70-105) mg/dL 05/06/22 05/06/22 05/06/22 Range/Units 04:47 06:30 12:15 Hct (35.5-45.6) % RDW (13.2-15.2) % Lymph % (Auto) (13.4-35.0) % Garrard % (Auto) (0.0-7.3) % Lymph # (Auto) (1.2-5.4) K/mm3 Garrard # (Auto) (0.0-0.8) K/mm3 Seg Neutrophils % (40.0-70.0) % Carbon Dioxide 36 H (22-30) mmol/L BUN 36 H (9-20) mg/dL Glucose 114 H (75-100) mg/dL POC Glucose 141 H 132 H (70-105) mg/dL
--- NOTE | 2022-05-06 20:35 | Progress Note ---
Subjective - Reason for Consult Consult date: 05/06/22 Reason for consult: agitation - Chief Complaint Chief complaint: Subjective DATE SEEN: 05/06/22 Patient seen today. Patient non verbal. Will continue with current medication regimen. The patient was seen today. He is doesn't respond when I call his name. He is in restraints. He has TF going. Will adjust medication regimen. REVIEW OF SYSTEMS Unable to assess MENTAL STATUS EXAMINATION Unable to assess Diagnoses: Dementia with behavioral disturbances Treatment Plan: Valproic level 131 Decrease Depakote 500mg po BID Medical: Per primary Sitter: Defer to primary Disposition: Do not recommend inpatient psych treatment at this time. Will follow for psych progress and med management Thank you Case staffed with Dr. Hebert Mental Status Exam - Vital signs Last Vital Signs Temp 97.1 F L 05/06/22 11:34 Pulse 106 H 05/06/22 11:34 Resp 24 05/06/22 11:34 BP 106/51 05/06/22 11:34 Pulse Ox 93 05/06/22 11:34
[2022-05-06] MEDS: MIRTAZAPINE 15 MG TAB PO SCH ×2 (22:31→22:32)
[2022-05-07] MEDS ORDERED: SODIUM CHLORIDE 0.9% 500 ML IVPB IV ONE (05:10)
[2022-05-07] MEDS: HALOPERIDOL 5 MG TAB PO SCH ×3 (09:21→22:42)
[2022-05-07] MEDS: VALPROIC ACID 250 MG/5 ML ORAL LIQD PO SCH ×2 (09:50→22:39)
[2022-05-07] MEDS: ASPIRIN 81 MG TAB CHEW PO SCH (09:50)
[2022-05-07] MEDS: AMOXICILLIN/K CLAV 875/125MG TAB FEEDTUBE SCH ×2 (09:50→22:40)
[2022-05-07] MEDS: HEPARIN 5,000 UNIT/1 ML VIAL SUB-Q SCH ×2 (09:51→22:39)
[2022-05-07] MEDS: CHOLECALCIFEROL (VIT D3) 1000 UNIT (25 mcg) TAB PO SCH (09:51)
[2022-05-07] MEDS: FLUTICASONE PROPIONATE NASAL SPRAY 16 GM NS SCH (09:51)
[2022-05-07] MEDS: MAGIC MOUTHWASH 30ML PO SCH ×2 (13:29→22:42)
--- NOTE | 2022-05-07 16:32 | Progress Note ---
Assessment and Plan Brief history and daily hospital course 76 YO Male PMH with Vascular Dementia with Behavioral disturbance, Cerebral Atherosclerosis, DM, BPH, HTN, Malnutrition, Coronavirus Infection. Patient remains confused, lethargic with diminished cognition. Patient remains at baseline level of cognition and function. Hospice team consulted. Case management consulted. COVID-19 positive x4 04/13/2022; patient is lethargic sleepy, restraint for safety Continue current management, psych evaluation noted and appreciated 04/14/2022; patient is more alert today trying to pull , agitated On restraints, refusing to eat, consider Dobbhoff placement for tube feeding if needed 04/15/2022; COVID-19 positive[ 03/31 and 04/13] Check inflammatory markers, ID consulted Patient is refusing medications and diet Confused and agitated, Dobbhoff placement and tube feeding per protocol 04/16/2022; patient is more alert and awake Tolerating liquids, will advance the diet as tolerated Check physical therapy occupational therapy evaluation and recommendations DC planning per case management 04/17/2022; patient is on pured diet, Will advance the diet as tolerated 04/18/2022; recommend hospice, try to call next of kin the daughter many times Unable to reach, hospice consult inpatient versus home hospice versus SNF with hospice 04/19: Patient remains on restraint and confused. He is on 2 L nasal cannula O2. We will start on dexamethasone for 10 days. We will also Low-dose of Seroquel for agitation and anxiety. Continue to follow clinically, waiting on SNF placement 04/20: Cont seroquel, restraint as needed. follow clinically. still positive for Covid, cont dexamethasone, pending placement. No family info in the file. 04/21: remains restraint, patient o RA today, does not follow commend, added clonidine path for HTN, stopped iv fluid.follow clinically. 04/22: Patient remains in restraints. Patient currently on room air with saturations at 96%. Patient remains confused and does not follow commands. Blood pressure much better controlled. Continue current regimen. Please review case management notes from 04/20. Caregiver currently unable to accept the patient at home until they find a place that can meet his needs. 04/23: Patient remains confused. Continue current regimen. Awaiting placement. 04/24: Continue dexamethasone and supplemental O2. Patient currently requiring 4 L O2 with saturations of 99%. Patient remains confused. Psychiatry recommends valproic acid, Remeron and Seroquel. Case management reports patient has not received any acceptances to custodial. Patient previously lived alone in an RV. At this time, patient is unable to live alone and caregiver is unable to care for the patient until they find a place that can meet his needs. 04/25: Continue dexamethasone and supplemental O2. Patient remains on 4 L O2 with saturations of 99%. Patient remains confused and does not follow commands. Patient still requiring restraints. Psychiatry recommends valproic acid, Remeron and Seroquel. Case management reports patient has not received any acceptances to custodial. Patient previously lived alone in an RV. At this time, patient is unable to live alone and caregiver is unable to care for the patient until they find a place that can meet his needs. ; pending placement, continue current management Place Dobbhoff feeding tube, nutrition consult for tube feeding Monitor closely and adjust the management as needed 04/27; patient is receiving Dobbhoff feeds, check speech therapy for swallow evaluation If abnormal consider PEG placement, will try to contact family Daughter Lorenza Beauchamp To discuss the goals of treatment and discharge planning Pending custodial with hospice. Hypernatremia Free water via Dobbhoff 04/28/2022; speech evaluated the patient, patient is unable to follow swallow eval Patient needs PEG placement, however no family available to give consent Case management to assist with dressing any family, if not available will check with the ethics committee For assistance. Difficult to discharge/placement as patient has no next of kin available. 04/29/2022; crooks PCR test third time today's positive. Continue tube feeding, DC planning, no family or contact available 04/30/22; patient pulled out Dobbhoff tube last night We will replace Dobbhoff tube start feeding as tolerated Still do not have any contact with the family members 05/01/2022; continue Dobbhoff feeds, restraints for safety DC planning[difficult to place due to social/no family reasons] 05/02/2022; restraints for safety, Dobbhoff feeds, awaiting placement Multiple social issues, no family available, COVID-19 x4 05/03/2022: Remains restrained, chest x-ray last night suggestive for Infiltrate versus atelectasis. Antibiotic started for possible aspiration pneumonia. Pending placement, continue to follow 05/04/22: -- Changed antibiotic to Augmentin, continue to follow clinically, pending placement 05/05/22; Valproic level 131. Decreased Depakote 500mg po BID, cont to follow, pending placement 05/06/22: Patient off isolation today, continue tube feeding. Pending placement. Patient is chronic metabolic encephalopathy with agitation requiring restraint and scheduled Haldol, 22/05 total care, tube feeding dependent, high risk for aspiration, unable to follow any commands, with extremely poor prognosis. Patient need hospice care. But no family member found to sign up for hospice. Continue to follow clinically with supportive care. 05/07/22: Continue to follow clinically with supportive care. pending placement. no family member found so far. Assessment and plan: -- COVID-19 positivex4 03/31/2022, 04/13/2022,04/20/22 and, 04/29/2022 Test negative on 05/05/22 s/p isolation precautions and protocols vitamin C therapy, vitamin D therapy, zinc therapy, supplemental oxygen, pulse oximetry, prophylactic anticoagulation. On dexamethasone as intermittently needed O2 Follow-up inflammatory markers, ID consulted: recommended supportive care --HTN, added clonidine patch --Possible aspiration pneumonia, continue empiric antibiotics, follow clinically --Vascular dementia with behavioral disturbance Verbal prompting, verbal redirection, benzodiazepine therapy as clinically indicated. --Cerebral atherosclerosis Risk factor reduction, antiplatelet therapy, supportive care. --General debility Bed alarm, fall precautions, supportive care. Physical therapy occupational therapy -- Mild to moderate malnutrition Increase protein intake, dietary supplementation when awake and alert only. Aspiration precautions. --Nicotine dependence Smoking cessation counseled, supportive care, behavior change counseled, pulse 50 minutes. --Volume depletion/dehydration IV fluids and supportive care, increase oral fluids --Metabolic encephalopathy Multifactorial , underlying dementia , malnutrition , advanced age COVID-19 infection , psych problems Treat underlying cause and supportive care --DVT prophylaxis SCD to bilateral extremities while in bed, prophylactic anticoagulation --Advance care planning patient is full code at this time. Discussed patient care with Quynhheather Britt, . The plan is to make patient DNR and plan for discharge to snf facility with hospice care. [facility]. According to CM no family has been reported. Please closely monitor the patient and adjust the management as needed Plan of care reviewed with the patient's nurse DC planning per case management Disposition; continue current management, DC planning per case management Subjective Date of service: 05/07/22 Principal diagnosis: Acute resp failure with Hypoxia,Covid pneumonia Interval history: Patient seen and examined Discussed plan of care with nursing staff and manager case No new events reported by the nursing staff, Patient is sometimes agitated requiring restraints Vital signs noted, Pending placement negative for Covid Objective - Exam Narrative Exam: General appearance: Present: no acute distress, cachectic, other (restrained for safety) - EENT Eyes: Present: PERRL, EOM intact - Neck Neck: Present: supple, normal ROM - Respiratory Respiratory effort: normal Respiratory: bilateral: diminished, negative: rales, rhonchi, wheezing - Cardiovascular Rhythm: regular Heart Sounds: Present: S1 & S2 - Extremities Extremities: no ischemia, No edema - Abdominal General gastrointestinal: soft, non-tender, non-distended, normal bowel sounds - Integumentary Integumentary: Present: clear, warm - Psychiatric Psychiatric: agitated, other - Neurologic Neurologic: moves all extremities (Confused) - Constitutional Vitals: Vital Signs - 12hr 05/07/22 05/07/22 05/07/22 04:52 07:40 08:13 Temperature 98.0 F Pulse Rate 100 H Respiratory 21 Rate Blood Pressure 90/42 Blood Pressure 74/48 [Right] O2 Sat by Pulse 92 Oximetry 05/07/22 05/07/22 10:00 12:02 Temperature 97.9 F Pulse Rate 88 Respiratory 18 Rate Blood Pressure 101/55 Blood Pressure [Right] O2 Sat by Pulse 94 95 Oximetry - Labs CBC & Chem 7: 05/06/22 04:47 05/06/22 04:47 Labs: Abnormal lab results 05/06/22 05/06/22 05/07/22 Range/Units 17:07 23:52 05:54 POC Glucose 140 H 176 H 161 H (70-105) mg/dL 05/07/22 Range/Units 12:03 POC Glucose 164 H (70-105) mg/dL
--- NOTE | 2022-05-07 19:58 | Progress Note ---
Subjective - Reason for Consult Reason for consult: MHE - Chief Complaint Chief complaint: Subjective DATE SEEN: 05/07/2022 Patient seen today still non verbal. Will continue with current plan of care. 05/06/22 Patient seen today. Patient non verbal. Will continue with current medication regimen. The patient was seen today. He is doesn't respond when I call his name. He is in restraints. He has TF going. Will adjust medication regimen. REVIEW OF SYSTEMS Unable to assess MENTAL STATUS EXAMINATION Unable to assess Diagnoses: Dementia with behavioral disturbances Treatment Plan: Valproic level 131 Decrease Depakote 500mg po BID Medical: Per primary Sitter: Defer to primary Disposition: Do not recommend inpatient psych treatment at this time. Will follow for psych progress and med management Thank you Case staffed with Dr. Hebert Mental Status Exam - Vital signs Last Vital Signs Temp 97.9 F 05/07/22 12:02 Pulse 88 05/07/22 12:02 Resp 18 05/07/22 12:02 BP 101/55 05/07/22 12:02 Pulse Ox 95 05/07/22 12:02
[2022-05-07] MEDS: MIRTAZAPINE 15 MG TAB PO SCH (22:40)
[2022-05-08] MEDS: MAGIC MOUTHWASH 30ML PO SCH ×3 (08:00→21:06)
[2022-05-08] MEDS: HALOPERIDOL 5 MG TAB PO SCH ×3 (09:28→21:06)
--- NOTE | 2022-05-08 12:59 | Progress Note ---
Assessment and Plan Brief history and daily hospital course 76 YO Male PMH with Vascular Dementia with Behavioral disturbance, Cerebral Atherosclerosis, DM, BPH, HTN, Malnutrition, Coronavirus Infection. Patient remains confused, lethargic with diminished cognition. Patient remains at baseline level of cognition and function. Hospice team consulted. Case management consulted. COVID-19 positive x4 04/13/2022; patient is lethargic sleepy, restraint for safety Continue current management, psych evaluation noted and appreciated 04/14/2022; patient is more alert today trying to pull , agitated On restraints, refusing to eat, consider Dobbhoff placement for tube feeding if needed 04/15/2022; COVID-19 positive[ 03/31 and 04/13] Check inflammatory markers, ID consulted Patient is refusing medications and diet Confused and agitated, Dobbhoff placement and tube feeding per protocol 04/16/2022; patient is more alert and awake Tolerating liquids, will advance the diet as tolerated Check physical therapy occupational therapy evaluation and recommendations DC planning per case management 04/17/2022; patient is on pured diet, Will advance the diet as tolerated 04/18/2022; recommend hospice, try to call next of kin the daughter many times Unable to reach, hospice consult inpatient versus home hospice versus SNF with hospice 04/19: Patient remains on restraint and confused. He is on 2 L nasal cannula O2. We will start on dexamethasone for 10 days. We will also Low-dose of Seroquel for agitation and anxiety. Continue to follow clinically, waiting on SNF placement 04/20: Cont seroquel, restraint as needed. follow clinically. still positive for Covid, cont dexamethasone, pending placement. No family info in the file. 04/21: remains restraint, patient o RA today, does not follow commend, added clonidine path for HTN, stopped iv fluid.follow clinically. 04/22: Patient remains in restraints. Patient currently on room air with saturations at 96%. Patient remains confused and does not follow commands. Blood pressure much better controlled. Continue current regimen. Please review case management notes from 04/20. Caregiver currently unable to accept the patient at home until they find a place that can meet his needs. 04/23: Patient remains confused. Continue current regimen. Awaiting placement. 04/24: Continue dexamethasone and supplemental O2. Patient currently requiring 4 L O2 with saturations of 99%. Patient remains confused. Psychiatry recommends valproic acid, Remeron and Seroquel. Case management reports patient has not received any acceptances to shelter. Patient previously lived alone in an RV. At this time, patient is unable to live alone and caregiver is unable to care for the patient until they find a place that can meet his needs. 04/25: Continue dexamethasone and supplemental O2. Patient remains on 4 L O2 with saturations of 99%. Patient remains confused and does not follow commands. Patient still requiring restraints. Psychiatry recommends valproic acid, Remeron and Seroquel. Case management reports patient has not received any acceptances to shelter. Patient previously lived alone in an RV. At this time, patient is unable to live alone and caregiver is unable to care for the patient until they find a place that can meet his needs. ; pending placement, continue current management Place Dobbhoff feeding tube, nutrition consult for tube feeding Monitor closely and adjust the management as needed 04/27; patient is receiving Dobbhoff feeds, check speech therapy for swallow evaluation If abnormal consider PEG placement, will try to contact family Daughter Lorenza Beauchamp To discuss the goals of treatment and discharge planning Pending shelter with hospice. Hypernatremia Free water via Dobbhoff 04/28/2022; speech evaluated the patient, patient is unable to follow swallow eval Patient needs PEG placement, however no family available to give consent Case management to assist with dressing any family, if not available will check with the ethics committee For assistance. Difficult to discharge/placement as patient has no next of kin available. 04/29/2022; crooks PCR test third time today's positive. Continue tube feeding, DC planning, no family or contact available 04/30/22; patient pulled out Dobbhoff tube last night We will replace Dobbhoff tube start feeding as tolerated Still do not have any contact with the family members 05/01/2022; continue Dobbhoff feeds, restraints for safety DC planning[difficult to place due to social/no family reasons] 05/02/2022; restraints for safety, Dobbhoff feeds, awaiting placement Multiple social issues, no family available, COVID-19 x4 05/03/2022: Remains restrained, chest x-ray last night suggestive for Infiltrate versus atelectasis. Antibiotic started for possible aspiration pneumonia. Pending placement, continue to follow 05/04/22: -- Changed antibiotic to Augmentin, continue to follow clinically, pending placement 05/05/22; Valproic level 131. Decreased Depakote 500mg po BID, cont to follow, pending placement. COVID test came is negative today. 05/06/22: Patient off isolation today, continue tube feeding. Pending placement. Patient is chronic metabolic encephalopathy with agitation requiring restraint and scheduled Haldol, 22/05 total care, tube feeding dependent, high risk for aspiration, unable to follow any commands, with extremely poor prognosis. Patie nt need hospice care. But no family member found to sign up for hospice. Continue to follow clinically with supportive care. 05/07/22: Continue to follow clinically with supportive care. pending placement. no family member found so far. 05/08/22; pending placement, cont supportive care. severe dementia, with 22/05 care. Assessment and plan: -- COVID-19 positivex4 03/31/2022, 04/13/2022,04/20/22 and, 04/29/2022 Test negative on 05/05/22 s/p isolation precautions and protocols vitamin C therapy, vitamin D therapy, zinc therapy, supplemental oxygen, pulse oximetry, prophylactic anticoagulation. On dexamethasone as intermittently needed O2 Follow-up inflammatory markers, ID consulted: recommended supportive care --HTN, added clonidine patch --Possible aspiration pneumonia, continue empiric antibiotics, follow clinically --Vascular dementia with behavioral disturbance Verbal prompting, verbal redirection, benzodiazepine therapy as clinically indicated. --Cerebral atherosclerosis Risk factor reduction, antiplatelet therapy, supportive care. --General debility Bed alarm, fall precautions, supportive care. Physical therapy occupational therapy -- Mild to moderate malnutrition Increase protein intake, dietary supplementation when awake and alert only. Aspiration precautions. --Nicotine dependence Smoking cessation counseled, supportive care, behavior change counseled, pulse 50 minutes. --Volume depletion/dehydration IV fluids and supportive care, increase oral fluids --Metabolic encephalopathy Multifactorial , underlying dementia , malnutrition , advanced age COVID-19 infection , psych problems Treat underlying cause and supportive care --DVT prophylaxis SCD to bilateral extremities while in bed, prophylactic anticoagulation --Advance care planning patient is full code at this time. Discussed patient care with Quynh Britt, . The plan is to make patient DNR and plan for disch arge to long-term facility with hospice care. Awaiting arrival of Ms. Britt to the hospital for family conference. According to CM no family has been reported. Please closely monitor the patient and adjust the management as needed Plan of care reviewed with the patient's nurse DC planning per case management Disposition; continue current management, DC planning per case management and family Subjective Date of service: 05/08/22 Principal diagnosis: Acute resp failure with Hypoxia,Covid pneumonia Interval history: Patient seen and examined Discussed plan of care with nursing staff and block and case maker No new events reported by the nursing staff, Patient is sometimes agitated requiring restraints Vital signs noted, Pending placement negative for Covid Objective - Exam Narrative Exam: General appearance: Present: no acute distress, cachectic, other (restrained for safety) - EENT Eyes: Present: PERRL, EOM intact - Neck Neck: Present: supple, normal ROM - Respiratory Respiratory effort: normal Respiratory: bilateral: diminished, negative: rales, rhonchi, wheezing - Cardiovascular Rhythm: regular Heart Sounds: Present: S1 & S2 - Extremities Extremities: no ischemia, No edema - Abdominal General gastrointestinal: soft, non-tender, non-distended, normal bowel sounds - Integumentary Integumentary: Present: clear, warm - Psychiatric Psychiatric: agitated, other - Neurologic Neurologic: moves all extremities (Confused) - Labs CBC & Chem 7: 05/06/22 04:47 05/06/22 04:47 Labs: Abnormal lab results 05/07/22 05/08/22 05/08/22 Range/Units 17:09 00:06 06:03 POC Glucose 131 H 145 H 160 H (70-105) mg/dL 05/08/22 Range/Units 12:26 POC Glucose 171 H (70-105) mg/dL
[2022-05-08] MEDS: VALPROIC ACID 250 MG/5 ML ORAL LIQD PO SCH ×2 (13:00→21:07)
[2022-05-08] MEDS: ASPIRIN 81 MG TAB CHEW PO SCH (13:00)
[2022-05-08] MEDS: FLUTICASONE PROPIONATE NASAL SPRAY 16 GM NS SCH (13:00)
[2022-05-08] MEDS: AMOXICILLIN/K CLAV 875/125MG TAB FEEDTUBE SCH (13:00)
[2022-05-08] MEDS: CHOLECALCIFEROL (VIT D3) 1000 UNIT (25 mcg) TAB PO SCH (13:00)
[2022-05-08] MEDS: HEPARIN 5,000 UNIT/1 ML VIAL SUB-Q SCH ×2 (18:59→21:07)
[2022-05-08] MEDS: MIRTAZAPINE 15 MG TAB PO SCH (21:12)
[2022-05-09] MEDS: HALOPERIDOL 5 MG TAB PO SCH ×3 (08:17→20:00)
[2022-05-09] MEDS: MAGIC MOUTHWASH 30ML PO SCH ×3 (08:22→20:14)
[2022-05-09] MEDS: VALPROIC ACID 250 MG/5 ML ORAL LIQD PO SCH ×2 (12:41→22:26)
[2022-05-09] MEDS: HEPARIN 5,000 UNIT/1 ML VIAL SUB-Q SCH ×2 (12:47→22:30)
[2022-05-09] MEDS: CHOLECALCIFEROL (VIT D3) 1000 UNIT (25 mcg) TAB PO SCH (13:00)
[2022-05-09] MEDS: ASPIRIN 81 MG TAB CHEW PO SCH (13:22)
--- NOTE | 2022-05-09 13:51 | Progress Note ---
Assessment and Plan Brief history and daily hospital course 76 YO Male PMH with Vascular Dementia with Behavioral disturbance, Cerebral Atherosclerosis, DM, BPH, HTN, Malnutrition, Coronavirus Infection. Patient remains confused, lethargic with diminished cognition. Patient remains at baseline level of cognition and function. Hospice team consulted. Case management consulted. COVID-19 positive x4 04/13/2022; patient is lethargic sleepy, restraint for safety Continue current management, psych evaluation noted and appreciated 04/14/2022; patient is more alert today trying to pull , agitated On restraints, refusing to eat, consider Dobbhoff placement for tube feeding if needed 04/15/2022; COVID-19 positive[ 03/31 and 04/13] Check inflammatory markers, ID consulted Patient is refusing medications and diet Confused and agitated, Dobbhoff placement and tube feeding per protocol 04/16/2022; patient is more alert and awake Tolerating liquids, will advance the diet as tolerated Check physical therapy occupational therapy evaluation and recommendations DC planning per case management 04/17/2022; patient is on pured diet, Will advance the diet as tolerated 04/18/2022; recommend hospice, try to call next of kin the daughter many times Unable to reach, hospice consult inpatient versus home hospice versus SNF with hospice 04/19: Patient remains on restraint and confused. He is on 2 L nasal cannula O2. We will start on dexamethasone for 10 days. We will also Low-dose of Seroquel for agitation and anxiety. Continue to follow clinically, waiting on SNF placement 04/20: Cont seroquel, restraint as needed. follow clinically. still positive for Covid, cont dexamethasone, pending placement. No family info in the file. 04/21: remains restraint, patient o RA today, does not follow commend, added clonidine path for HTN, stopped iv fluid.follow clinically. 04/22: Patient remains in restraints. Patient currently on room air with saturations at 96%. Patient remains confused and does not follow commands. Blood pressure much better controlled. Continue current regimen. Please review case management notes from 04/20. Caregiver currently unable to accept the patient at home until they find a place that can meet his needs. 04/23: Patient remains confused. Continue current regimen. Awaiting placement. 04/24: Continue dexamethasone and supplemental O2. Patient currently requiring 4 L O2 with saturations of 99%. Patient remains confused. Psychiatry recommends valproic acid, Remeron and Seroquel. Case management reports patient has not received any acceptances to residential. Patient previously lived alone in an RV. At this time, patient is unable to live alone and caregiver is unable to care for the patient until they find a place that can meet his needs. 04/25: Continue dexamethasone and supplemental O2. Patient remains on 4 L O2 with saturations of 99%. Patient remains confused and does not follow commands. Patient still requiring restraints. Psychiatry recommends valproic acid, Remeron and Seroquel. Case management reports patient has not received any acceptances to residential. Patient previously lived alone in an RV. At this time, patient is unable to live alone and caregiver is unable to care for the patient until they find a place that can meet his needs. ; pending placement, continue current management Place Dobbhoff feeding tube, nutrition consult for tube feeding Monitor closely and adjust the management as needed 04/27; patient is receiving Dobbhoff feeds, check speech therapy for swallow evaluation If abnormal consider PEG placement, will try to contact family Daughter Lorenza Beauchamp To discuss the goals of treatment and discharge planning Pending residential with hospice. Hypernatremia Free water via Dobbhoff 04/28/2022; speech evaluated the patient, patient is unable to follow swallow eval Patient needs PEG placement, however no family available to give consent Case management to assist with dressing any family, if not available will check with the ethics committee For assistance. Difficult to discharge/placement as patient has no next of kin available. 04/29/2022; crooks PCR test third time today's positive. Continue tube feeding, DC planning, no family or contact available 04/30/22; patient pulled out Dobbhoff tube last night We will replace Dobbhoff tube start feeding as tolerated Still do not have any contact with the family members 05/01/2022; continue Dobbhoff feeds, restraints for safety DC planning[difficult to place due to social/no family reasons] 05/02/2022; restraints for safety, Dobbhoff feeds, awaiting placement Multiple social issues, no family available, COVID-19 x4 05/03/2022: Remains restrained, chest x-ray last night suggestive for Infiltrate versus atelectasis. Antibiotic started for possible aspiration pneumonia. Pending placement, continue to follow 05/04/22: -- Changed antibiotic to Augmentin, continue to follow clinically, pending placement 05/05/22; Valproic level 131. Decreased Depakote 500mg po BID, cont to follow, pending placement. COVID test came is negative today. 05/06/22: Patient off isolation today, continue tube feeding. Pending placement. Patient is chronic metabolic encephalopathy with agitation requiring restraint and scheduled Haldol, 22/05 total care, tube feeding dependent, high risk for aspiration, unable to follow any commands, with extremely poor prognosis. Patie nt need hospice care. But no family member found to sign up for hospice. Continue to follow clinically with supportive care. 05/07/22: Continue to follow clinically with supportive care. pending placement. no family member found so far. 05/08/22; pending placement, cont supportive care. severe dementia, with 22/05 care. 05/09/22: patient on 10L o2 today, possible aspiration, repeat cxr, pending placement, no family member found so far. Assessment and plan: -- COVID-19 positivex4 03/31/2022, 04/13/2022,04/20/22 and, 04/29/2022 Test negative on 05/05/22 s/p isolation precautions and protocols vitamin C therapy, vitamin D therapy, zinc therapy, supplemental oxygen, pulse oximetry, prophylactic anticoagulation. On dexamethasone as intermittently needed O2 Follow-up inflammatory markers, ID consulted: recommended supportive care --HTN, added clonidine patch --Possible aspiration pneumonia, continue empiric antibiotics, follow clinically --Vascular dementia with behavioral disturbance Verbal prompting, verbal redirection, benzodiazepine therapy as clinically indicated. --Cerebral atherosclerosis Risk factor reduction, antiplatelet therapy, supportive care. --General debility Bed alarm, fall precautions, supportive care. Physical therapy occupational therapy -- Mild to moderate malnutrition Increase protein intake, dietary supplementation when awake and alert only. Aspiration precautions. --Nicotine dependence Smoking cessation counseled, supportive care, behavior change counseled, pulse 50 minutes. --Volume depletion/dehydration IV fluids and supportive care, increase oral fluids --Metabolic encephalopathy Multifactorial , underlying dementia , malnutrition , advanced age COVID-19 infection , psych problems Treat underlying cause and supportive care --DVT prophylaxis SCD to bilateral extremities while in bed, prophylactic anticoagulation --Advance care planning patient is full code at this time. Discussed patient care with Quynh Britt, . The plan is to make patient DNR and plan for discharge to [facility] facility with hospice care. Awaiting arrival of Ms. Britt to the [facility] for family conference. According to CM no family has been reported. Please closely monitor the patient and adjust the management as needed Plan of care reviewed with the patient's nurse DC planning per case management Disposition; continue current management, DC planning per case management and family Subjective Date of service: 05/09/22 Principal diagnosis: Acute resp failure with Hypoxia,Covid pneumonia Interval history: Patient seen and examined Discussed plan of care with nursing staff and patient case manager No new events reported by the nursing staff, Patient is sometimes agitated requiring restraints Vital signs noted, Pending placement negative for Covid Objective - Exam Narrative Exam: General appearance: Present: no acute distress, cachectic, other (restrained for safety) - EENT Eyes: Present: PERRL, EOM intact - Neck Neck: Present: supple, normal ROM - Respiratory Respiratory effort: normal Respiratory: bilateral: diminished, negative: rales, rhonchi, wheezing - Cardiovascular Rhythm: regular Heart Sounds: Present: S1 & S2 - Extremities Extremities: no ischemia, No edema - Abdominal General gastrointestinal: soft, non-tender, non-distended, normal bowel sounds - Integumentary Integumentary: Present: clear, warm - Psychiatric Psychiatric: agitated, other - Neurologic Neurologic: moves all extremities (Confused) - Constitutional Vitals: Vital Signs - 12hr 05/09/22 05/09/22 05/09/22 05:30 05:33 10:00 Temperature 97.9 F Pulse Rate 96 H Respiratory 20 Rate Blood Pressure 118/68 O2 Sat by Pulse 92 95 Oximetry - Labs CBC & Chem 7: 05/06/22 04:47 05/06/22 04:47 Labs: Abnormal lab results 05/08/22 05/08/22 05/09/22 Range/Units 17:20 23:58 05:35 POC Glucose 163 H 196 H 154 H (70-105) mg/dL Valproic Acid (50-100) ug/mL 05/09/22 05/09/22 Range/Units 11:01 11:39 POC Glucose 163 H (70-105) mg/dL Valproic Acid 31.2 L (50-100) ug/mL
--- NOTE | 2022-05-09 14:25 | Progress Note ---
Subjective - Reason for Consult Reason for consult: MHE - Chief Complaint Chief complaint: Subjective DATE SEEN:05/09/22 Patient seen today in his room. Nursing staff states that patient has been calm with no anxiety. Patient currently on feeding tube. No medication changes at this time. Subjective DATE SEEN: 05/07/2022 Patient seen today still non verbal. Will continue with current plan of care. 05/06/22 Patient seen today. Patient non verbal. Will continue with current medication regimen. The patient was seen today. He is doesn't respond when I call his name. He is in restraints. He has TF going. Will adjust medication regimen. REVIEW OF SYSTEMS Unable to assess MENTAL STATUS EXAMINATION Unable to assess Diagnoses: Dementia with behavioral disturbances Treatment Plan: Valproic level 131 Decrease Depakote 500mg po BID Medical: Per primary Sitter: Defer to primary Disposition: Do not recommend inpatient psych treatment at this time. Will follow for psych progress and med management Thank you Case staffed with Dr. Hebert Mental Status Exam - Vital signs Last Vital Signs Temp 97.9 F 05/09/22 05:30 Pulse 96 H 05/09/22 05:33 Resp 20 05/09/22 05:30 BP 118/68 05/09/22 05:33 Pulse Ox 95 05/09/22 10:00
[2022-05-09] MEDS: FLUTICASONE PROPIONATE NASAL SPRAY 16 GM NS SCH (20:49)
[2022-05-09] MEDS: MIRTAZAPINE 15 MG TAB PO SCH (22:26)
[2022-05-10] MEDS ORDERED: SODIUM CHLORIDE 0.9% 1000 ML 1,000 ML IV ONE (05:20)
[2022-05-10 06:19] LABS: Calcium 10.3 mg/dL (8.4-10.2)
[2022-05-10 07:49] LABS: Hematocrit 31.2 % (35.5-45.6); Hemoglobin 10.4 gm/dl (11.8-15.2); Mean Corpuscular HGB Conc 33 % (32-34); Mean Corpuscular Volume 95 fl (84-94); Platelet Count 271 K/mm3 (140-440); Red Blood Count 3.27 M/mm3 (3.65-5.03); Red Cell Distribution Width 13.6 % (13.2-15.2)
--- NOTE | 2022-05-10 08:27 | Progress Note ---
Assessment and Plan Assessment and plan: Assessment and plan: 76 YO Male PMH with Vascular Dementia with Behavioral disturbance, Cerebral Atherosclerosis, DM, BPH, HTN, Malnutrition, Coronavirus Infection. Patient remains confused, lethargic with diminished cognition. Patient remains at baseline level of cognition and function. Hospice team consulted. Case management consulted. COVID-19 positive x4 -- COVID-19 positivex4 03/31/2022, 04/13/2022,04/20/22 and, 04/29/2022 Test negative on 05/05/22 s/p isolation precautions and protocols vitamin C therapy, vitamin D therapy, zinc therapy, supplemental oxygen, pulse oximetry, prophylactic anticoagulation. On dexamethasone as intermittently needed O2 Follow-up inflammatory markers, ID consulted: recommended supportive care --hypertensionadded clonidine patch --aspiration pneumonia, continue empiric antibiotics, follow clinically Chest x-ray, worsening infiltrates, DC planning home hospice versus hospice facility However no family to give consent --Vascular dementia with behavioral disturbance Verbal prompting, verbal redirection, benzodiazepine therapy as clinically indicated. --Cerebral atherosclerosis Risk factor reduction, antiplatelet therapy, supportive care. --General debility Bed alarm, fall precautions, supportive care. Physical therapy occupational therapy -- Mild to moderate malnutrition Increase protein intake, dietary supplementation when awake and alert only. Aspiration precautions. --Nicotine dependence Smoking cessation counseled, supportive care, behavior change counseled, pulse 50 minutes. --Volume depletion/dehydration IV fluids and supportive care, increase oral fluids --Metabolic encephalopathy Multifactorial , underlying dementia , malnutrition , advanced age COVID-19 infection , psych problems Treat underlying cause and supportive care --DVT prophylaxis SCD to bilateral extremities while in bed, prophylactic anticoagulation --Advance care planning patient is full code at this time. Discussed patient care with Quynhheather Britt, . The plan is to make patient DNR and plan for discharge to senior care facility with hospice care. Awaiting arrival of Ms. Britt to the hospital for family conference. According to CM no family has been reported. We will closely monitor the patient and adjust the management as needed Plan of care reviewed with the patient's nurse DC planning per case management Disposition; continue current management, DC planning per case management and family Brief history and daily Hospital course: 76 YO Male PMH with Vascular Dementia with Behavioral disturbance, Cerebral Atherosclerosis, DM, BPH, HTN, Malnutrition, Coronavirus Infection. Patient remains confused, lethargic with diminished cognition. Patient remains at baseline level of cognition and function. Hospice team consulted. Case management consulted. COVID-19 positive x4 04/13/2022; patient is lethargic sleepy, restraint for safety Continue current management, psych evaluation noted and appreciated 04/14/2022; patient is more alert today trying to pull , agitated On restraints, refusing to eat, consider Dobbhoff placement for tube feeding if needed 04/15/2022; COVID-19 positive[ 03/31 and 04/13] Check inflammatory markers, ID consulted Patient is refusing medications and diet Confused and agitated, Dobbhoff placement and tube feeding per protocol 04/16/2022; patient is more alert and awake Tolerating liquids, will advance the diet as tolerated Check physical therapy occupational therapy evaluation and recommendations DC planning per case management 04/17/2022; patient is on pured diet, Will advance the diet as tolerated 04/18/2022; recommend hospice, try to call next of kin the daughter many times Unable to reach, hospice consult inpatient versus home hospice versus SNF with hospice 04/19: Patient remains on restraint and confused. He is on 2 L nasal cannula O2. We will start on dexamethasone for 10 days. We will also Low-dose of Seroquel for agitation and anxiety. Continue to follow clinically, waiting on SNF placement 04/20: Cont seroquel, restraint as needed. follow clinically. still positive for Covid, cont dexamethasone, pending placement. No family info in the file. 04/21: remains restraint, patient o RA today, does not follow commend, added clonidine path for HTN, stopped iv fluid.follow clinically. 04/22: Patient remains in restraints. Patient currently on room air with saturations at 96%. Patient remains confused and does not follow commands. Blood pressure much better controlled. Continue current regimen. Please review case management notes from 04/20. Caregiver currently unable to accept the patient at home until they find a place that can meet his needs. 04/23: Patient remains confused. Continue current regimen. Awaiting placement. 04/24: Continue dexamethasone and supplemental O2. Patient currently requiring 4 L O2 with saturations of 99%. Patient remains confused. Psychiatry recommends valproic acid, Remeron and Seroquel. Case management reports patient has not received any acceptances to retirement. Patient previously lived alone in an RV. At this time, patient is unable to live alone and caregiver is unable to care for the patient until they find a place that can meet his needs. 04/25: Continue dexamethasone and supplemental O2. Patient remains on 4 L O2 with saturations of 99%. Patient remains confused and does not follow commands. Patient still requiring restraints. Psychiatry recommends valproic acid, Remeron and Seroquel. Case management reports patient has not received any acceptances to retirement. Patient previously lived alone in an RV. At this time, patient is unable to live alone and caregiver is unable to care for the patient until they find a place that can meet his needs. ; pending placement, continue current management Place Dobbhoff feeding tube, nutrition consult for tube feeding Monitor closely and adjust the management as needed 04/27; patient is receiving Dobbhoff feeds, check speech therapy for swallow evaluation If abnormal consider PEG placement, will try to contact family Daughter Lorenza Beauchamp To discuss the goals of treatment and discharge planning Pending retirement with hospice. Hypernatremia Free water via Dobbhoff 04/28/2022; speech evaluated the patient, patient is unable to follow swallow eval Patient needs PEG placement, however no family available to give consent Case management to assist with dressing any family, if not available will check with the ethics committee For assistance. Difficult to discharge/placement as patient has no next of kin available. 04/29/2022; crooks PCR test third time today's positive. Continue tube feeding, DC planning, no family or contact available 04/30/22; patient pulled out Dobbhoff tube last night We will replace Dobbhoff tube start feeding as tolerated Still do not have any contact with the family members 05/01/2022; continue Dobbhoff feeds, restraints for safety DC planning[difficult to place due to social/no family reasons] 05/02/2022; restraints for safety, Dobbhoff feeds, awaiting placement Multiple social issues, no family available, COVID-19 x4 05/03/2022: Remains restrained, chest x-ray last night suggestive for Infiltrate versus atelectasis. Antibiotic started for possible aspiration pneumonia. Pending placement, continue to follow 05/04/22: -- Changed antibiotic to Augmentin, continue to follow clinically, pending placement 05/05/22; Valproic level 131. Decreased Depakote 500mg po BID, cont to follow, pending placement. COVID test came is negative today. 05/06/22: Patient off isolation today, continue tube feeding. Pending placement. Patient is chronic metabolic encephalopathy with agitation requiring restraint and scheduled Haldol, 22/05 total care, tube feeding dependent, high risk for aspiration, unable to follow any commands, with extremely poor prognosis. Patient need hospice care. But no family member found to sign up for hospice. Continue to follow clinically with supportive care. 05/07/22: Continue to follow clinically with supportive care. pending placement. no family member found so far. 05/08/22; pending placement, cont supportive care. severe dementia, with 22/05 care. 05/09/22: patient on 10L o2 today, possible aspiration, repeat cxr, pending placement, no family member found so far. 05/10/2022; patient clinically no change, chest x-ray worsening infiltrates Continue supportive care oxygen titrate O2 sats to more than 90%, restraint for safety, continue tube feeding Consider hospice History Interval history: I have seen and examined the patient at the bedside Patient's chart and medications reviewed Patient is noncommunicative, restraint for safety Receiving Dobbhoff feeds No new events reported by the nursing staff No family available Hospitalist Physical - Constitutional Vitals: Temp Pulse Resp BP Pulse Ox 98.2 F 91 H 24 80/45 95 05/10/22 04:32 05/10/22 04:32 05/10/22 04:32 05/10/22 04:32 05/10/22 04:32 General appearance: Present: no acute distress, cachectic, disheveled, other (Noncommunicative) - EENT Eyes: Present: PERRL, EOM intact - Neck Neck: Present: supple, normal ROM - Respiratory Respiratory effort: normal Respiratory: bilateral: diminished, negative: rales, rhonchi, wheezing - Cardiovascular Rhythm: regular Heart Sounds: Present: S1 & S2 - Extremities Extremities: no ischemia, No edema - Abdominal General gastrointestinal: soft, non-tender, non-distended, normal bowel sounds - Integumentary Integumentary: Present: clear, warm - Psychiatric Psychiatric: other (Confused none communicative) - Neurologic Neurologic: other (Confused noncommunicative) Results - Labs CBC & Chem 7: 05/10/22 04:56 05/10/22 04:56 Labs: Laboratory Last Values WBC 21.2 K/mm3 (4.5-11.0) H 05/10/22 04:56 RBC 3.27 M/mm3 (3.65-5.03) L 05/10/22 04:56 Hgb 10.4 gm/dl (11.8-15.2) L 05/10/22 04:56 Hct 31.2 % (35.5-45.6) L 05/10/22 04:56 MCV 95 fl (84-94) H 05/10/22 04:56 MCH 32 pg (28-32) 05/10/22 04:56 MCHC 33 % (32-34) 05/10/22 04:56 RDW 13.6 % (13.2-15.2) 05/10/22 04:56 Plt Count 271 K/mm3 (140-440) 05/10/22 04:56 Lymph % (Auto) 9.9 % (13.4-35.0) L 05/06/22 04:47 [place] % (Auto) 13.6 % (0.0-7.3) H 05/06/22 04:47 Eos % (Auto) 0.2 % (0.0-4.3) 05/06/22 04:47 Baso % (Auto) 0.4 % (0.0-1.8) 05/06/22 04:47 Lymph # (Auto) 0.9 K/mm3 (1.2-5.4) L 05/06/22 04:47 [place] # (Auto) 1.2 K/mm3 (0.0-0.8) H 05/06/22 04:47 Eos # (Auto) 0.0 K/mm3 (0.0-0.4) 05/06/22 04:47 Baso # (Auto) 0.0 K/mm3 (0.0-0.1) 05/06/22 04:47 Seg Neutrophils % Joint Cutter Machine 05/10/22 04:56 Seg Neutrophils # 6.7 K/mm3 (1.8-7.7) 05/06/22 04:47 D-Dimer 376.26 ng/mlDDU (0-234) H 04/18/22 09:00 Sodium 154 mmol/L (137-145) H D 05/10/22 04:56 Potassium 4.8 mmol/L (3.6-5.0) 05/10/22 04:56 Chloride 107.0 mmol/L (98-107) 05/10/22 04:56 Carbon Dioxide 38 mmol/L (22-30) H 05/10/22 04:56 Anion Gap 14 mmol/L 05/10/22 04:56 BUN 98 mg/dL (9-20) H 05/10/22 04:56 Creatinine 1.8 mg/dL (0.8-1.3) H D 05/10/22 04:56 Estimated GFR 37 ml/min 05/10/22 04:56 BUN/Creatinine Ratio 54 % 05/10/22 04:56 Glucose 180 mg/dL (75-100) H 05/10/22 04:56 POC Glucose 169 mg/dL (70-105) H 05/10/22 05:43 Calcium 10.3 mg/dL (8.4-10.2) H 05/10/22 04:56 Magnesium 2.20 mg/dL (1.7-2.3) 05/03/22 04:53 Ferritin 1407.0 ng/mL (30.0-300.0) H 04/18/22 09:00 Total Bilirubin 0.60 mg/dL (0.1-1.2) 05/03/22 04:53 AST 20 units/L (5-40) 05/03/22 04:53 ALT 26 units/L (7-56) 05/03/22 04:53 Alkaline Phosphatase 103 units/L (35-129) 05/03/22 04:53 Ammonia 14.0 umol/L (25-60) L 04/30/22 14:41 Lactate Dehydrogenase 229 units/L (91-180) H 04/18/22 09:00 C-Reactive Protein 1.10 mg/dL (0.00-1.30) 04/18/22 09:00 Total Protein 6.0 g/dL (6.3-8.2) L 05/03/22 04:53 Albumin 2.5 g/dL (3.9-5) L 05/03/22 04:53 Albumin/Globulin Ratio 0.7 % 05/03/22 04:53 Valproic Acid 31.2 ug/mL (50-100) L 05/09/22 11:01 SARS-CoV-2 (PCR) Negative (Negative) 05/05/22 12:37 Kaufman/IV: Voiding Method Incontinent Active Medications - Current Medications Current Medications: Generic Name Dose Route Start Last Admin Trade Name Freq PRN Reason Stop Dose Admin Acetaminophen 650 mg 04/06/22 15:59 Acetaminophen 325 Mg Tab PO Q4H PRN Pain MILD(1-3)/Fever >100.5/MCKENZIE Albuterol 2.5 mg 04/06/22 15:59 05/08/22 16:23 Albuterol 2.5 Mg/3 Ml Nebu IH 2.5 mg Q4HRT PRN Administration Shortness Of Breath Lipase/Protease/Amylase 1 each 04/26/22 18:00 Lipase 10,500/Protease 25,000/Amylase 43,750 (Units) Dr Barrios FEEDTUBE PRN PRN For Clogged Feeding Tube Aspirin 81 mg 04/30/22 17:00 05/09/22 13:22 Aspirin 81 Mg Tab Chew PO 81 mg QDAY GALINA Administration Cholecalciferol 1,000 unit 04/07/22 10:00 05/09/22 13:00 Cholecalciferol (Vit D3) 1000 Unit (25 Mcg) Tab PO 1,000 unit QDAY GALINA Administration Clonidine HCl 0.3 mg 04/26/22 14:00 05/03/22 13:23 Clonidine Tts 0.3 Mg/24 Hr Patch TD 0.3 mg Tu@1400 GALINA Administration Fluticasone Propionate 50 mcg 04/07/22 10:00 05/09/22 20:49 Fluticasone Propionate Nasal [place] 16 Gm NS 50 mcg QDAY GALINA Administration Haloperidol 5 mg 05/03/22 15:00 05/09/22 20:00 Haloperidol 5 Mg Tab PO Not Given TID GALINA Haloperidol Lactate 5 mg 04/30/22 11:29 05/03/22 22:04 Haloperidol Lactate 5 Mg/1 Ml Inj IM 5 mg Q6H PRN Administration Agitation Heparin Sodium (Porcine) 5,000 unit 04/06/22 22:00 05/09/22 22:30 Heparin 5,000 Unit/1 Ml Vial SUB-Q 5,000 unit Q12HR GALINA Administration Hydralazine HCl 10 mg 04/22/22 15:07 04/27/22 13:50 Hydralazine 20 Mg/1 Ml Inj IV 10 mg Q4H PRN Administration Hypertension Hydromorphone HCl 0.5 mg 04/26/22 17:59 05/02/22 10:57 Hydromorphone 0.5 Mg/0.5 Ml Inj IV 0.5 mg Q8H PRN Administration Pain , Severe (7-10) Lidocaine HCl 15 ml 05/07/22 14:00 05/09/22 20:14 Magic Mouthwash 30ml PO Not Given TID GALINA Melatonin 5 mg 04/07/22 11:21 04/11/22 23:27 Melatonin 5 Mg Tab PO 5 mg QHS PRN Administration Sleep Mirtazapine 15 mg 04/11/22 22:00 05/09/22 22:26 Mirtazapine 15 Mg Tab PO 15 mg QHS GALINA Administration Ondansetron HCl 4 mg 04/06/22 15:59 Ondansetron 4 Mg/2 Ml Inj IV Q8H PRN Nausea And Vomiting Oxycodone/Acetaminophen 1 tab 04/06/22 15:59 04/13/22 22:21 Oxycodone /Acetaminophen 5-325mg Tab PO 1 tab Q16H PRN Administration Pain, Moderate (4-6) Simple Syrup 15 ml 04/26/22 18:00 Simple Syrup 15 Ml FEEDTUBE PRN PRN Hypoglycemia Simple Syrup 30 ml 04/26/22 18:00 Simple Syrup 15 Ml FEEDTUBE PRN PRN Hypoglycemia Sodium Bicarbonate 325 mg 04/26/22 18:00 Sodium Bicarbonate 325 Mg Tab FEEDTUBE PRN PRN For Clogged Feeding Tube Sodium Chloride 10 ml 04/06/22 22:00 05/09/22 22:26 Sodium Chloride 0.9% 10 Ml Flush Syringe IV 10 ml BID GALINA Administration Sodium Chloride 10 ml 04/06/22 15:59 04/29/22 20:05 Sodium Chloride 0.9% 10 Ml Flush Syringe IV 10 ml PRN PRN Administration LINE FLUSH Valproic Acid 500 mg 05/05/22 22:00 05/09/22 22:26 Valproic Acid 250 Mg/5 Ml Oral Liqd PO 500 mg BID GALINA Administration Nutrition/Malnutrition Assess - Dietary Evaluation Nutrition/Malnutrition Findings: Nutrition Notes Start: 04/07/22 15:47 Freq: Status: Active Protocol: Document 05/09/22 12:51 ADRIAN (Rec: 05/09/22 13:02 ADRIAN [id number]) Nutrition Notes Initial or Follow up Reassessment Current Diagnosis Diabetes,Hypertension Other Pertinent Diagnosis Vascular dementia with behavioral disturbance, s/p COVID-19 infection Current Diet TF - Glucerna 1.2 at 45ml/hr Labs/Tests POC Glu range since lasat assessment: 91-176 Pertinent Medications Reviewed Height 5 ft 2 in Weight 43.7 kg [place] Body Weight (kg) 53.63 BMI 17.6 Weight change and time frame Wt change noted Weight Status Underweight Subjective/Other Information Pt continues to tolerate TF at goal rate. Pt is pending placement. Percent of energy/protein needs met: 74% energy needed for wt gain 100% pro needs Burn Absent Trauma Absent #1 Nutrition Diagnosis Inadequate protein-energy intake,Underweight Comments: CHANGED Etiology advanced age, dementia As Evidenced by Signs and Symptoms BMI is 17.6 Is patient on ventilator? No Is Patient Ambulatory and/or Out of Bed No REE-([facility]-confined to bed) 1274.076 Kcal/Kg value to use for calculation 40 Approximate Energy Requirements Using 1748 kcal/Kg Calculation Used for Recommendations Kcal/kg Additional Notes Pro needs 1.2-1.5g/k-66g/ day Fluid needs 1ml/kcal Nutrition Intervention Nutrition Support: Increase TF goal rate to Glucerna 1.2 at 55ml/hr. Provide 85ml water flush q4h. Kcal 1,584 Protein (gm) 79 Carbohydrates (gm) 151 Fat (gm) 79 Fluid (mL) 1,063 Fiber (gm) 21 Goal #1 TF tolerance Goal #2 TF to meet 100% energy and pro needs Goal #3 Wt maintenance and/or gain Follow-Up By: 05/11/22 Additional Comments F/U: TF rate increase and tolerance
[2022-05-10] MEDS: ASPIRIN 81 MG TAB CHEW PO SCH (09:26)
[2022-05-10] MEDS: MAGIC MOUTHWASH 30ML PO SCH ×3 (09:26→21:55)
[2022-05-10] MEDS: HALOPERIDOL 5 MG TAB PO SCH ×4 (09:26→21:55)
[2022-05-10] MEDS: CHOLECALCIFEROL (VIT D3) 1000 UNIT (25 mcg) TAB PO SCH (09:26)
[2022-05-10] MEDS: HEPARIN 5,000 UNIT/1 ML VIAL SUB-Q SCH ×2 (09:26→21:55)
[2022-05-10] MEDS: VALPROIC ACID 250 MG/5 ML ORAL LIQD PO SCH ×2 (09:26→21:55)
[2022-05-10] MEDS: FLUTICASONE PROPIONATE NASAL SPRAY 16 GM NS SCH (09:27)
--- NOTE | 2022-05-10 09:54 | XRay Report ---
CHEST 1 VIEW 05/10/2022 7:32 AM INDICATION / CLINICAL INFORMATION: SOB. COMPARISON: 05/02/22 FINDINGS: SUPPORT DEVICES: Feeding tube is unchanged. HEART / MEDIASTINUM: No significant abnormality. LUNGS / PLEURA: Interval worsening of bibasilar pulmonary opacities, especially at the right lung bas e. No pneumothorax. ADDITIONAL FINDINGS: No significant additional findings. IMPRESSION: 1. Interval worsening. Signer Name: Lala Perry MD Signed: 05/10/2022 9:46 AM Workstation Name: [id number]
[2022-05-10 11:09] LABS: Basophils % (Manual) 0 % (0.0-1.8); Eosinophils % (Manual) 0 % (0.0-4.3); Total Cells Counted 100
[2022-05-10 11:11] LABS: Anisocytosis 1+
[2022-05-10 11:12] LABS: Large Platelets Rare; Platelet Estimate Consistent w Auto; Poikilocytosis Rare; Spherocytes Rare; Stomatocytes Rare
[2022-05-10] MEDS: cloNIDine TTS 0.3 MG/24 HR PATCH TD SCH (14:14)
--- NOTE | 2022-05-10 17:48 | Progress Note ---
Subjective - Reason for Consult Consult date: 05/10/22 Reason for consult: MHE - Chief Complaint Chief complaint: SUBJECTIVE DATE SEEN:05/10/2022 Patient seen today in his room. patient has been calm with no anxiety. Patient currently on feeding tube. Subjective DATE SEEN:05/09/22 Subjective DATE SEEN: 05/07/2022 Patient seen today still non verbal. Will continue with current plan of care. 05/06/22 Patient seen today. Patient non verbal. Will continue with current medication regimen. The patient was seen today. He is doesn't respond when I call his name. He is in restraints. He has TF going. Will adjust medication regimen. REVIEW OF SYSTEMS Unable to assess MENTAL STATUS EXAMINATION Unable to assess Diagnoses: Dementia with behavioral disturbances Treatment Plan: Valproic level 131 Decrease Depakote 500mg po BID Medical: Per primary Sitter: Defer to primary Disposition: Do not recommend inpatient psych treatment at this time. Will follow for psych progress and med management Thank you Case staffed with Dr. Hebert Mental Status Exam - Vital signs Last Vital Signs Temp 98.1 F 05/10/22 11:07 Pulse 71 05/10/22 14:14 Resp 26 H 05/10/22 11:07 BP 118/61 05/10/22 14:14 Pulse Ox 90 05/10/22 11:07
[2022-05-10] MEDS: MIRTAZAPINE 15 MG TAB PO SCH (21:55)
[2022-05-11] MEDS: INSULIN LISPRO 100 UNIT/ML SUB-Q SCH ×3 (07:22→17:37)
[2022-05-11] MEDS: MAGIC MOUTHWASH 30ML PO SCH ×3 (08:25→22:37)
[2022-05-11] MEDS: HALOPERIDOL 5 MG TAB PO SCH ×3 (08:27→22:34)
[2022-05-11] MEDS: HEPARIN 5,000 UNIT/1 ML VIAL SUB-Q SCH ×2 (09:05→22:36)
[2022-05-11] MEDS: CHOLECALCIFEROL (VIT D3) 1000 UNIT (25 mcg) TAB PO SCH (09:05)
[2022-05-11] MEDS: ASPIRIN 81 MG TAB CHEW PO SCH (09:05)
[2022-05-11] MEDS: VALPROIC ACID 250 MG/5 ML ORAL LIQD PO SCH ×2 (09:13→22:36)
--- NOTE | 2022-05-11 09:47 | Progress Note ---
Assessment and Plan Assessment and plan: 76 YO Male PMH with Vascular Dementia with Behavioral disturbance, Cerebral Atherosclerosis, DM, BPH, HTN, Malnutrition, Coronavirus Infection. Patient remains confused, lethargic with diminished cognition. Patient remains at baseline level of cognition and function. Hospice team consulted. Case varun sharma consulted. COVID-19 positive x4 -- COVID-19 positivex4 03/31/2022, 04/13/2022,04/20/22 and, 04/29/2022 Test negative on 05/05/22 s/p isolation precautions and protocols vitamin C therapy, vitamin D therapy, zinc therapy, supplemental oxygen, pulse oximetry, prophylactic anticoagulation. On dexamethasone as intermittently needed O2 Follow-up inflammatory markers, ID consulted: recommended supportive care --hypertensionadded clonidine patch --aspiration pneumonia, continue empiric antibiotics, follow clinically Chest x-ray, worsening infiltrates, DC planning home hospice versus hospice facility However no family to give consent --Vascular dementia with behavioral disturbance Verbal prompting, verbal redirection, benzodiazepine therapy as clinically indicated. --Cerebral atherosclerosis Risk factor reduction, antiplatelet therapy, supportive care. --General debility Bed alarm, fall precautions, supportive care. Physical therapy occupational therapy -- Mild to moderate malnutrition Increase protein intake, dietary supplementation when awake and alert only. Aspiration precautions. --Nicotine dependence Smoking cessation counseled, supportive care, behavior change counseled, pulse 50 minutes. --Volume depletion/dehydration IV fluids and supportive care, increase oral fluids --Metabolic encephalopathy Multifactorial , underlying dementia , malnutrition , advanced age COVID-19 infection , psych problems Treat underlying cause and supportive care --DVT prophylaxis SCD to bilateral extremities while in bed, prophylactic anticoagulation --Advance care planning patient is full code at this time. Discussed patient care with Quynhheather Britt, . The plan is to make patient DNR and [facility]. Awaiting arrival of Ms. Britt to the hospital for family conference. According to CM no family has been reported. We will closely monitor the patient and adjust the management as needed Plan of care reviewed with the patient's nurse DC planning per case management Disposition; continue current management, DC planning per case management and family Brief history and daily Hospital course: 76 YO Male PMH with Vascular Dementia with Behavioral disturbance, Cerebral Atherosclerosis, DM, BPH, HTN, Malnutrition, Coronavirus Infection. Patient remains confused, lethargic with diminished cognition. Patient remains at baseline level of cognition and function. Hospice team consulted. Case management consulted. COVID-19 positive x4 04/13/2022; patient is lethargic sleepy, restraint for safety Continue current management, psych evaluation noted and appreciated 04/14/2022; patient is more alert today trying to pull , agitated On restraints, refusing to eat, consider Dobbhoff placement for tube feeding if needed 04/15/2022; COVID-19 positive[ 03/31 and 04/13] Check inflammatory markers, ID consulted Patient is refusing medications and diet Confused and agitated, Dobbhoff placement and tube feeding per protocol 04/16/2022; patient is more alert and awake Tolerating liquids, will advance the diet as tolerated Check physical therapy occupational therapy evaluation and recommendations DC planning per case management 04/17/2022; patient is on pured diet, Will advance the diet as tolerated 04/18/2022; recommend hospice, try to call next of kin the daughter many times Unable to reach, hospice consult inpatient versus home hospice versus SNF with hospice 04/19: Patient remains on restraint and confused. He is on 2 L nasal cannula O2. We will start on dexamethasone for 10 days. We will also Low-dose of Seroquel for agitation and anxiety. Continue to follow clinically, waiting on SNF placement 04/20: Cont seroquel, restraint as needed. follow clinically. still positive for Covid, cont dexamethasone, pending placement. No family info in the file. 04/21: remains restraint, patient o RA today, does not follow commend, added clonidine path for HTN, stopped iv fluid.follow clinically. 04/22: Patient remains in restraints. Patient currently on room air with saturations at 96%. Patient remains confused and does not follow commands. Blood pressure much better controlled. Continue current regimen. Please review case management notes from 04/20. Caregiver currently unable to accept the patient at home until they find a place that can meet his needs. 04/23: Patient remains confused. Continue current regimen. Awaiting placement. 04/24: Continue dexamethasone and supplemental O2. Patient currently requiring 4 L O2 with saturations of 99%. Patient remains confused. Psychiatry recommends valproic acid, Remeron and Seroquel. Case management reports patient has not received any acceptances to skilled nursing. Patient previously lived alone in an RV. At this time, patient is unable to live alone and caregiver is unable to care for the patient until they find a place that can meet his needs. 04/25: Continue dexamethasone and supplemental O2. Patient remains on 4 L O2 with saturations of 99%. Patient remains confused and does not follow commands. Patient still requiring restraints. Psychiatry recommends valproic acid, Remeron and Seroquel. Case management reports patient has not received any acceptances to skilled nursing. Patient previously lived alone in an RV. At this time, patient is unable to live alone and caregiver is unable to care for the patient until they find a place that can meet his needs. ; pending placement, continue current management Place Dobbhoff feeding tube, nutrition consult for tube feeding Monitor closely and adjust the management as needed 04/27; patient is receiving Dobbhoff feeds, check speech therapy for swallow evaluation If abnormal consider PEG placement, will try to contact family Daughter Lorenza Beauchamp To discuss the goals of treatment and discharge planning Pending skilled nursing with hospice. Hypernatremia Free water via Dobbhoff 04/28/2022; speech evaluated the patient, patient is unable to follow swallow eval Patient needs PEG placement, however no family available to give consent Case management to assist with dressing any family, if not available will check with the ethics committee For assistance. Difficult to discharge/placement as patient has no next of kin available. 04/29/2022; crooks PCR test third time today's positive. Continue tube feeding, DC planning, no family or contact available 04/30/22; patient pulled out Dobbhoff tube last night We will replace Dobbhoff tube start feeding as tolerated Still do not have any contact with the family members 05/01/2022; continue Dobbhoff feeds, restraints for safety DC planning[difficult to place due to social/no family reasons] 05/02/2022; restraints for safety, Dobbhoff feeds, awaiting placement Multiple social issues, no family available, COVID-19 x4 05/03/2022: Remains restrained, chest x-ray last night suggestive for Infiltrate versus atelectasis. Antibiotic started for possible aspiration pneumonia. Pending placement, continue to follow 05/04/22: -- Changed antibiotic to Augmentin, continue to follow clinically, pending placement 05/05/22; Valproic level 131. Decreased Depakote 500mg po BID, cont to follow, pending placement. COVID test came is negative today. 05/06/22: Patient off isolation today, continue tube feeding. Pending placement. Patient is chronic metabolic encephalopathy with agitation requiring restraint and scheduled Haldol, 22/05 total care, tube feeding dependent, high risk for aspiration, unable to follow any commands, with extremely poor prognosis. Jason chery need hospice care. But no family member found to sign up for hospice. Continue to follow clinically with supportive care. 05/07/22: Continue to follow clinically with supportive care. pending placement. no family member found so far. 05/08/22; pending placement, cont supportive care. severe dementia, with 22/05 care. 05/09/22: patient on 10L o2 today, possible aspiration, repeat cxr, pending placement, no family member found so far. 05/10/2022; patient clinically no change, chest x-ray worsening infiltrates Continue supportive care oxygen titrate O2 sats to more than 90%, restraint for safety, continue tube feeding Consider hospice 05/11; discharge planning awaiting hospice evaluation . History Interval history: I have seen and examined the patient at the bedside Patient's chart and medications reviewed No new events reported by the nursing Patient remains noncommunicative unresponsive On Dobbhoff feeds Vital signs noted Hospitalist Physical - Constitutional Vitals: Temp Pulse Resp BP Pulse Ox 98.3 F 110 H 18 140/78 98 05/11/22 04:19 05/11/22 04:19 05/11/22 04:19 05/11/22 04:05/11/22 07:35 General appearance: Present: no acute distress, cachectic, disheveled, other (Noncommunicative) - EENT Eyes: Present: PERRL, EOM intact - Neck Neck: Present: supple, normal ROM - Respiratory Respiratory effort: normal Respiratory: bilateral: diminished, rhonchi, negative: rales, wheezing - Cardiovascular Rhythm: regular Heart Sounds: Present: S1 & S2 - Extremities Extremities: no ischemia, No edema - Abdominal General gastrointestinal: soft, non-tender, non-distended, normal bowel sounds - Integumentary Integumentary: Present: clear, warm - Psychiatric Psychiatric: appropriate mood/affect, cooperative - Neurologic Neurologic: moves all extremities Results - Labs CBC & Chem 7: 05/10/22 04:56 05/10/22 04:56 Labs: Laboratory Last Values WBC 21.2 K/mm3 (4.5-11.0) H 05/10/22 04:56 RBC 3.27 M/mm3 (3.65-5.03) L 05/10/22 04:56 Hgb 10.4 gm/dl (11.8-15.2) L 05/10/22 04:56 Hct 31.2 % (35.5-45.6) L 05/10/22 04:56 MCV 95 fl (84-94) H 05/10/22 04:56 MCH 32 pg (28-32) 05/10/22 04:56 MCHC 33 % (32-34) 05/10/22 04:56 RDW 13.6 % (13.2-15.2) 05/10/22 04:56 Plt Count 271 K/mm3 (140-440) 05/10/22 04:56 Lymph % (Auto) 9.9 % (13.4-35.0) L 05/06/22 04:47 [place] % (Auto) 13.6 % (0.0-7.3) H 05/06/22 04:47 Eos % (Auto) 0.2 % (0.0-4.3) 05/06/22 04:47 Baso % (Auto) 0.4 % (0.0-1.8) 05/06/22 04:47 Lymph # (Auto) 0.9 K/mm3 (1.2-5.4) L 05/06/22 04:47 [place] # (Auto) 1.2 K/mm3 (0.0-0.8) H 05/06/22 04:47 Eos # (Auto) 0.0 K/mm3 (0.0-0.4) 05/06/22 04:47 Baso # (Auto) 0.0 K/mm3 (0.0-0.1) 05/06/22 04:47 Add Manual Diff Complete 05/10/22 04:56 Total Counted 100 05/10/22 04:56 Seg Neutrophils % Manager Performance 05/10/22 04:56 Seg Neuts % (Manual) 94.0 % (40.0-70.0) H 05/10/22 04:56 Band Neutrophils % 0 % 05/10/22 04:56 Lymphocytes % (Manual) 1.0 % (13.4-35.0) L 05/10/22 04:56 Reactive Lymphs % (Man) 0 % 05/10/22 04:56 Monocytes % (Manual) 5.0 % (0.0-7.3) 05/10/22 04:56 Eosinophils % (Manual) 0 % (0.0-4.3) 05/10/22 04:56 Basophils % (Manual) 0 % (0.0-1.8) 05/10/22 04:56 Metamyelocytes % 0 % 05/10/22 04:56 Myelocytes % 0 % 05/10/22 04:56 Promyelocytes % 0 % 05/10/22 04:56 Blast Cells % 0 % 05/10/22 04:56 Nucleated RBC % Not Reportable 05/10/22 04:56 Seg Neutrophils # 6.7 K/mm3 (1.8-7.7) 05/06/22 04:47 Seg Neutrophils # Man 19.9 K/mm3 (1.8-7.7) H 05/10/22 04:56 Band Neutrophils # 0.0 K/mm3 05/10/22 04:56 Lymphocytes # (Manual) 0.2 K/mm3 (1.2-5.4) L 05/10/22 04:56 Abs React Lymphs (Man) 0.0 K/mm3 05/10/22 04:56 Monocytes # (Manual) 1.1 K/mm3 (0.0-0.8) H 05/10/22 04:56 Eosinophils # (Manual) 0.0 K/mm3 (0.0-0.4) 05/10/22 04:56 Basophils # (Manual) 0.0 K/mm3 (0.0-0.1) 05/10/22 04:56 Metamyelocytes # 0.0 K/mm3 05/10/22 04:56 Myelocytes # 0.0 K/mm3 05/10/22 04:56 Promyelocytes # 0.0 K/mm3 05/10/22 04:56 Blast Cells # 0.0 K/mm3 05/10/22 04:56 WBC Morphology Not Reportable 05/10/22 04:56 Hypersegmented Neuts Not Reportable 05/10/22 04:56 Hyposegmented Neuts 1+ 05/10/22 04:56 Hypogranular Neuts Not Reportable 05/10/22 04:56 Smudge Cells Not Reportable 05/10/22 04:56 Toxic Granulation Not Reportable 05/10/22 04:56 Toxic Vacuolation Not Reportable 05/10/22 04:56 Dohle Bodies Not Reportable 05/10/22 04:56 Pelger-Huet Anomaly Not Reportable 05/10/22 04:56 Maria Del Rosario Rods Not Reportable 05/10/22 04:56 Platelet Estimate Consistent w auto 05/10/22 04:56 Clumped Platelets Not Reportable 05/10/22 04:56 Plt Clumps, EDTA Not Reportable 05/10/22 04:56 Large Platelets Rare 05/10/22 04:56 Giant Platelets Not Reportable 05/10/22 04:56 Platelet Satelliting Not Reportable 05/10/22 04:56 Plt Morphology Comment Not Reportable 05/10/22 04:56 RBC Morphology Not Reportable 05/10/22 04:56 Dimorphic RBCs Not Reportable 05/10/22 04:56 Polychromasia Not Reportable 05/10/22 04:56 Hypochromasia Not Reportable 05/10/22 04:56 Poikilocytosis Rare 05/10/22 04:56 Anisocytosis 1+ 05/10/22 04:56 Microcytosis 1+ 05/10/22 04:56 Macrocytosis Not Reportable 05/10/22 04:56 Spherocytes Rare 05/10/22 04:56 Pappenheimer Bodies Not Reportable 05/10/22 04:56 Sickle Cells Not Reportable 05/10/22 04:56 Target Cells Not Reportable 05/10/22 04:56 Tear Drop Cells Not Reportable 05/10/22 04:56 Ovalocytes Not Reportable 05/10/22 04:56 Stomatocytes Rare 05/10/22 04:56 Helmet Cells Not Reportable 05/10/22 04:56 [place] Bodies Not Reportable 05/10/22 04:56 [place] Rings Not Reportable 05/10/22 04:56 Dao Cells Not Reportable 05/10/22 04:56 Bite Cells Not Reportable 05/10/22 04:56 Crenated Cell Not Reportable 05/10/22 04:56 Elliptocytes Not Reportable 05/10/22 04:56 Acanthocytes (Spur) Not Reportable 05/10/22 04:56 Rouleaux Not Reportable 05/10/22 04:56 Hemoglobin C Crystals Not Reportable 05/10/22 04:56 Schistocytes Not Reportable 05/10/22 04:56 Malaria parasites Not Reportable 05/10/22 04:56 Isidro Bodies Not Reportable 05/10/22 04:56 Hem Pathologist Commnt No 05/10/22 04:56 D-Dimer 376.26 ng/mlDDU (0-234) H 04/18/22 09:00 Sodium 154 mmol/L (137-145) H D 05/10/22 04:56 Potassium 4.8 mmol/L (3.6-5.0) 05/10/22 04:56 Chloride 107.0 mmol/L (98-107) 05/10/22 04:56 Carbon Dioxide 38 mmol/L (22-30) H 05/10/22 04:56 Anion Gap 14 mmol/L 05/10/22 04:56 BUN 98 mg/dL (9-20) H 05/10/22 04:56 Creatinine 1.8 mg/dL (0.8-1.3) H D 05/10/22 04:56 Estimated GFR 37 ml/min 05/10/22 04:56 BUN/Creatinine Ratio 54 % 05/10/22 04:56 Glucose 180 mg/dL (75-100) H 05/10/22 04:56 POC Glucose 170 mg/dL (70-105) H 05/11/22 06:49 Calcium 10.3 mg/dL (8.4-10.2) H 05/10/22 04:56 Magnesium 2.20 mg/dL (1.7-2.3) 05/03/22 04:53 Ferritin 1407.0 ng/mL (30.0-300.0) H 04/18/22 09:00 Total Bilirubin 0.60 mg/dL (0.1-1.2) 05/03/22 04:53 AST 20 units/L (5-40) 05/03/22 04:53 ALT 26 units/L (7-56) 05/03/22 04:53 Alkaline Phosphatase 103 units/L (35-129) 05/03/22 04:53 Ammonia 14.0 umol/L (25-60) L 04/30/22 14:41 Lactate Dehydrogenase 229 units/L (91-180) H 04/18/22 09:00 C-Reactive Protein 1.10 mg/dL (0.00-1.30) 04/18/22 09:00 Total Protein 6.0 g/dL (6.3-8.2) L 05/03/22 04:53 Albumin 2.5 g/dL (3.9-5) L 05/03/22 04:53 Albumin/Globulin Ratio 0.7 % 05/03/22 04:53 Valproic Acid 31.2 ug/mL (50-100) L 05/09/22 11:01 SARS-CoV-2 (PCR) Negative (Negative) 05/05/22 12:37 Kaufman/IV: Voiding Method Incontinent Active Medications - Current Medications Current Medications: Generic Name Dose Route Start Last Admin Trade Name Freq PRN Reason Stop Dose Admin Acetaminophen 650 mg 04/06/22 15:59 Acetaminophen 325 Mg Tab PO Q4H PRN Pain MILD(1-3)/Fever >100.5/MCKENZIE Albuterol 2.5 mg 04/06/22 15:59 05/08/22 16:23 Albuterol 2.5 Mg/3 Ml Nebu IH 2.5 mg Q4HRT PRN Administration Shortness Of Breath Lipase/Protease/Amylase 1 each 04/26/22 18:00 Lipase 10,500/Protease 25,000/Amylase 43,750 (Units) Dr Barrios FEEDTUBE PRN PRN For Clogged Feeding Tube Aspirin 81 mg 04/30/22 17:00 05/11/22 09:05 Aspirin 81 Mg Tab Chew PO 81 mg QDAY GALINA Administration Cholecalciferol 1,000 unit 04/07/22 10:00 05/11/22 09:05 Cholecalciferol (Vit D3) 1000 Unit (25 Mcg) Tab PO 1,000 unit QDAY GALINA Administration Clonidine HCl 0.3 mg 04/26/22 14:00 05/10/22 14:14 Clonidine Tts 0.3 Mg/24 Hr Patch TD Not Given Tu@1400 GALINA Fluticasone Propionate 50 mcg 04/07/22 10:00 05/10/22 09:27 Fluticasone Propionate Nasal [place] 16 Gm NS 50 mcg QDAY GALINA Administration Haloperidol 5 mg 05/03/22 15:00 05/11/22 08:27 Haloperidol 5 Mg Tab PO 5 mg TID GALINA Administration Haloperidol Lactate 5 mg 04/30/22 11:29 05/03/22 22:04 Haloperidol Lactate 5 Mg/1 Ml Inj IM 5 mg Q6H PRN Administration Agitation Heparin Sodium (Porcine) 5,000 unit 04/06/22 22:00 05/11/22 09:05 Heparin 5,000 Unit/1 Ml Vial SUB-Q 5,000 unit Q12HR GALINA Administration Hydralazine HCl 10 mg 04/22/22 15:07 04/27/22 13:50 Hydralazine 20 Mg/1 Ml Inj IV 10 mg Q4H PRN Administration Hypertension Hydromorphone HCl 0.5 mg 04/26/22 17:59 05/02/22 10:57 Hydromorphone 0.5 Mg/0.5 Ml Inj IV 0.5 mg Q8H PRN Administration Pain , Severe (7-10) Insulin Human Lispro 0 unit 05/11/22 07:30 05/11/22 07:22 Insulin Lispro 100 Unit/Ml SUB-Q 2 unit Q6HR GALINA Administration Protocol Lidocaine HCl 15 ml 05/07/22 14:00 05/11/22 08:25 Magic Mouthwash 30ml PO Not Given TID GALINA Melatonin 5 mg 04/07/22 11:21 04/11/22 23:27 Melatonin 5 Mg Tab PO 5 mg QHS PRN Administration Sleep Mirtazapine 15 mg 04/11/22 22:00 05/10/22 21:55 Mirtazapine 15 Mg Tab PO 15 mg QHS GALINA Administration Ondansetron HCl 4 mg 04/06/22 15:59 Ondansetron 4 Mg/2 Ml Inj IV Q8H PRN Nausea And Vomiting Oxycodone/Acetaminophen 1 tab 04/06/22 15:59 04/13/22 22:21 Oxycodone /Acetaminophen 5-325mg Tab PO 1 tab Q16H PRN Administration Pain, Moderate (4-6) Simple Syrup 15 ml 04/26/22 18:00 Simple Syrup 15 Ml FEEDTUBE PRN PRN Hypoglycemia Simple Syrup 30 ml 04/26/22 18:00 Simple Syrup 15 Ml FEEDTUBE PRN PRN Hypoglycemia Sodium Bicarbonate 325 mg 04/26/22 18:00 Sodium Bicarbonate 325 Mg Tab FEEDTUBE PRN PRN For Clogged Feeding Tube Sodium Chloride 10 ml 04/06/22 22:00 05/11/22 09:06 Sodium Chloride 0.9% 10 Ml Flush Syringe IV 10 ml BID GALINA Administration Sodium Chloride 10 ml 04/06/22 15:59 04/29/22 20:05 Sodium Chloride 0.9% 10 Ml Flush Syringe IV 10 ml PRN PRN Administration LINE FLUSH Valproic Acid 500 mg 05/05/22 22:00 05/11/22 09:13 Valproic Acid 250 Mg/5 Ml Oral Liqd PO 500 mg BID GALINA Administration Nutrition/Malnutrition Assess - Dietary Evaluation Nutrition/Malnutrition Findings: Nutrition Notes Start: 04/07/22 15:47 Freq: Status: Active Protocol: Document 05/09/22 12:51 ADRIAN (Rec: 05/09/22 13:02 ADRIAN [id number]) Nutrition Notes Initial or Follow up Reassessment Current Diagnosis Diabetes,Hypertension Other Pertinent Diagnosis Vascular dementia with behavioral disturbance, s/p COVID-19 infection Current Diet TF - Glucerna 1.2 at 45ml/hr Labs/Tests POC Glu range since lasat assessment: 91-176 Pertinent Medications Reviewed Height 5 ft 2 in Weight 43.7 kg [place] Body Weight (kg) 53.63 BMI 17.6 Weight change and time frame Wt change noted Weight Status Underweight Subjective/Other Information Pt continues to tolerate TF at goal rate. Pt is pending placement. Percent of energy/protein needs met: 74% energy needed for wt gain 100% pro needs Burn Absent Trauma Absent #1 Nutrition Diagnosis Inadequate protein-energy intake,Underweight Comments: CHANGED Etiology advanced age, dementia As Evidenced by Signs and Symptoms BMI is 17.6 Is patient on ventilator? No Is Patient Ambulatory and/or Out of Bed No REE-([facility]-confined to bed) 1274.076 Kcal/Kg value to use for calculation 40 Approximate Energy Requirements Using 1748 kcal/Kg Calculation Used for Recommendations Kcal/kg Additional Notes Pro needs 1.2-1.5g/k-66g/ day Fluid needs 1ml/kcal Nutrition Intervention Nutrition Support: Increase TF goal rate to Glucerna 1.2 at 55ml/hr. Provide 85ml water flush q4h. Kcal 1,584 Protein (gm) 79 Carbohydrates (gm) 151 Fat (gm) 79 Fluid (mL) 1,063 Fiber (gm) 21 Goal #1 TF tolerance Goal #2 TF to meet 100% energy and pro needs Goal #3 Wt maintenance and/or gain Follow-Up By: 05/11/22 Additional Comments F/U: TF rate increase and tolerance
[2022-05-11] MEDS: FLUTICASONE PROPIONATE NASAL SPRAY 16 GM NS SCH (10:10)
--- NOTE | 2022-05-11 13:26 | Progress Note ---
Subjective - Reason for Consult Consult date: 05/11/22 Reason for consult: MHE - Chief Complaint Chief complaint: SUBJECTIVE DATE SEEN:05/11/2022 Patient seen today. Patient being changes, spoke with nurse patient at baseline behavior. Psych will sign off at this time. SUBJECTIVE DATE SEEN:05/10/2022 Patient seen today in his room. patient has been calm with no anxiety. Patient currently on feeding tube. Subjective DATE SEEN:05/09/22 Subjective DATE SEEN: 05/07/2022 Patient seen today still non verbal. Will continue with current plan of care. 05/06/22 Patient seen today. Patient non verbal. Will continue with current medication regimen. The patient was seen today. He is doesn't respond when I call his name. He is in restraints. He has TF going. Will adjust medication regimen. REVIEW OF SYSTEMS Unable to assess MENTAL STATUS EXAMINATION Unable to assess Diagnoses: Dementia with behavioral disturbances Treatment Plan: Valproic level 131 Decrease Depakote 500mg po BID Medical: Per primary Sitter: Defer to primary Disposition: Do not recommend inpatient psych treatment at this time. Will sign off Thank you Case staffed with Dr. Hebert Mental Status Exam - Vital signs Last Vital Signs Temp 98.3 F 05/11/22 04:19 Pulse 110 H 05/11/22 04:19 Resp 18 05/11/22 04:19 BP 140/78 05/11/22 04:19 Pulse Ox 98 05/11/22 12:32
[2022-05-11] MEDS ORDERED: SODIUM CHLORIDE 0.9% 1000 ML 1,000 ML ONE (22:23)
[2022-05-11] MEDS ORDERED: SODIUM CHLORIDE 0.9% 1000 ML 1,000 ML IV ONE (22:25)
[2022-05-11] MEDS: MIRTAZAPINE 15 MG TAB PO SCH ×2 (22:34→22:44)
[2022-05-11] MEDS: ACETAMINOPHEN 325 MG TAB PO PRN (22:36)
--- NOTE | 2022-05-11 22:49 | Event Note ---
Date: 05/11/22 Code med was called. Patient was found hypotensive. Patient was given normal saline 1 L fluid bolus. Repeat BP is 114/60. Patient is put on remote telemetry. We will monitor the blood pressure closely
[2022-05-12] MEDS: INSULIN LISPRO 100 UNIT/ML SUB-Q SCH ×4 (00:06→17:45)
[2022-05-12 04:52] LABS: Hematocrit 30.8 % (35.5-45.6); Hemoglobin 10.2 gm/dl (11.8-15.2); Mean Corpuscular HGB Conc 33 % (32-34); Mean Corpuscular Volume 96 fl (84-94); Platelet Count 267 K/mm3 (140-440); Red Blood Count 3.23 M/mm3 (3.65-5.03); Red Cell Distribution Width 13.7 % (13.2-15.2)
[2022-05-12 05:06] LABS: Calcium 11.1 mg/dL (8.4-10.2)
[2022-05-12 07:55] LABS: Band Neutrophils # (Manual) 0.1 K/mm3; Basophils % (Manual) 0 % (0.0-1.8); Eosinophils % (Manual) 0 % (0.0-4.3); Total Cells Counted 100
[2022-05-12 07:56] LABS: Anisocytosis 1+; Poikilocytosis 1+
[2022-05-12 07:57] LABS: Spherocytes Rare
[2022-05-12 07:58] LABS: Large Platelets Rare; Platelet Estimate Consistent w Auto
[2022-05-12] MEDS ORDERED: SODIUM POLYSTYRENE 15 GM/60 ML ORAL LIQD PO NR (09:30)
[2022-05-12] MEDS: CHOLECALCIFEROL (VIT D3) 1000 UNIT (25 mcg) TAB PO SCH (10:09)
[2022-05-12] MEDS: HEPARIN 5,000 UNIT/1 ML VIAL SUB-Q SCH ×2 (10:10→21:00)
[2022-05-12] MEDS: ASPIRIN 81 MG TAB CHEW PO SCH (10:10)
[2022-05-12] MEDS: FLUTICASONE PROPIONATE NASAL SPRAY 16 GM NS SCH (10:11)
[2022-05-12] MEDS: MAGIC MOUTHWASH 30ML PO SCH ×3 (10:11→20:59)
[2022-05-12] MEDS: VALPROIC ACID 250 MG/5 ML ORAL LIQD PO SCH ×2 (10:17→21:00)
[2022-05-12] MEDS: HALOPERIDOL 5 MG TAB PO SCH ×3 (10:17→20:59)
--- NOTE | 2022-05-12 20:49 | Progress Note ---
Assessment and Plan Assessment and plan: 76 YO Male PMH with Vascular Dementia with Behavioral disturbance, Cerebral Atherosclerosis, DM, BPH, HTN, Malnutrition, Coronavirus Infection. Patient remains confused, lethargic with diminished cognition. Patient remains at baseline level of cognition and function. Hospice team consulted. Case varun sharma consulted. COVID-19 positive x4 -- COVID-19 positivex4 03/31/2022, 04/13/2022,04/20/22 and, 04/29/2022 Test negative on 05/05/22 s/p isolation precautions and protocols vitamin C therapy, vitamin D therapy, zinc therapy, supplemental oxygen, pulse oximetry, prophylactic anticoagulation. On dexamethasone as intermittently needed O2 Follow-up inflammatory markers, ID consulted: recommended supportive care --hypertensionadded clonidine patch --aspiration pneumonia, continue empiric antibiotics, follow clinically Chest x-ray, worsening infiltrates, DC planning home hospice versus hospice facility However no family to give consent --Vascular dementia with behavioral disturbance Verbal prompting, verbal redirection, benzodiazepine therapy as clinically indicated. --Cerebral atherosclerosis Risk factor reduction, antiplatelet therapy, supportive care. --General debility Bed alarm, fall precautions, supportive care. Physical therapy occupational therapy -- Mild to moderate malnutrition Increase protein intake, dietary supplementation when awake and alert only. Aspiration precautions. --Nicotine dependence Smoking cessation counseled, supportive care, behavior change counseled, pulse 50 minutes. --Volume depletion/dehydration IV fluids and supportive care, increase oral fluids --Metabolic encephalopathy Multifactorial , underlying dementia , malnutrition , advanced age COVID-19 infection , psych problems Treat underlying cause and supportive care --DVT prophylaxis SCD to bilateral extremities while in bed, prophylactic anticoagulation --Advance care planning patient is full code at this time. Discussed patient care with Quynhheather Britt, . The plan is to make patient DNR and plan for discharge to care home facility with hospice care. Awaiting arrival of Ms. Britt to the hospital for family conference. According to CM no family has been reported. We will closely monitor the patient and adjust the management as needed Plan of care reviewed with the patient's nurse DC planning per case management Disposition; continue current management, DC planning per case management and family Brief history and daily Hospital course: 76 YO Male PMH with Vascular Dementia with Behavioral disturbance, Cerebral Atherosclerosis, DM, BPH, HTN, Malnutrition, Coronavirus Infection. Patient remains confused, lethargic with diminished cognition. Patient remains at baseline level of cognition and function. Hospice team consulted. Case management consulted. COVID-19 positive x4 04/13/2022; patient is lethargic sleepy, restraint for safety Continue current management, psych evaluation noted and appreciated 04/14/2022; patient is more alert today trying to pull , agitated On restraints, refusing to eat, consider Dobbhoff placement for tube feeding if needed 04/15/2022; COVID-19 positive[ 03/31 and 04/13] Check inflammatory markers, ID consulted Patient is refusing medications and diet Confused and agitated, Dobbhoff placement and tube feeding per protocol 04/16/2022; patient is more alert and awake Tolerating liquids, will advance the diet as tolerated Check physical therapy occupational therapy evaluation and recommendations DC planning per case management 04/17/2022; patient is on pured diet, Will advance the diet as tolerated 04/18/2022; recommend hospice, try to call next of kin the daughter many times Unable to reach, hospice consult inpatient versus home hospice versus SNF with hospice 04/19: Patient remains on restraint and confused. He is on 2 L nasal cannula O2. We will start on dexamethasone for 10 days. We will also Low-dose of Seroquel for agitation and anxiety. Continue to follow clinically, waiting on SNF placement 04/20: Cont seroquel, restraint as needed. follow clinically. still positive for Covid, cont dexamethasone, pending placement. No family info in the file. 04/21: remains restraint, patient o RA today, does not follow commend, added clonidine path for HTN, stopped iv fluid.follow clinically. 04/22: Patient remains in restraints. Patient currently on room air with saturations at 96%. Patient remains confused and does not follow commands. Blood pressure much better controlled. Continue current regimen. Please review case management notes from 04/20. Caregiver currently unable to accept the patient at home until they find a place that can meet his needs. 04/23: Patient remains confused. Continue current regimen. Awaiting placement. 04/24: Continue dexamethasone and supplemental O2. Patient currently requiring 4 L O2 with saturations of 99%. Patient remains confused. Psychiatry recommends valproic acid, Remeron and Seroquel. Case management reports patient has not received any acceptances to group home. Patient previously lived alone in an RV. At this time, patient is unable to live alone and caregiver is unable to care for the patient until they find a place that can meet his needs. 04/25: Continue dexamethasone and supplemental O2. Patient remains on 4 L O2 with saturations of 99%. Patient remains confused and does not follow commands. Patient still requiring restraints. Psychiatry recommends valproic acid, Remeron and Seroquel. Case management reports patient has not received any acceptances to group home. Patient previously lived alone in an RV. At this time, patient is unable to live alone and caregiver is unable to care for the patient until they find a place that can meet his needs. ; pending placement, continue current management Place Dobbhoff feeding tube, nutrition consult for tube feeding Monitor closely and adjust the management as needed 04/27; patient is receiving Dobbhoff feeds, check speech therapy for swallow evaluation If abnormal consider PEG placement, will try to contact family Daughter Lorenza eBauchamp To discuss the goals of treatment and discharge planning Pending group home with hospice. Hypernatremia Free water via Dobbhoff 04/28/2022; speech evaluated the patient, patient is unable to follow swallow eval Patient needs PEG placement, however no family available to give consent Case management to assist with dressing any family, if not available will check with the ethics committee For assistance. Difficult to discharge/placement as patient has no next of kin available. 04/29/2022; crooks PCR test third time today's positive. Continue tube feeding, DC planning, no family or contact available 04/30/22; patient pulled out Dobbhoff tube last night We will replace Dobbhoff tube start feeding as tolerated Still do not have any contact with the family members 05/01/2022; continue Dobbhoff feeds, restraints for safety DC planning[difficult to place due to social/no family reasons] 05/02/2022; restraints for safety, Dobbhoff feeds, awaiting placement Multiple social issues, no family available, COVID-19 x4 05/03/2022: Remains restrained, chest x-ray last night suggestive for Infiltrate versus atelectasis. Antibiotic started for possible aspiration pneumonia. Pending placement, continue to follow 05/04/22: -- Changed antibiotic to Augmentin, continue to follow clinically, pending placement 05/05/22; Valproic level 131. Decreased Depakote 500mg po BID, cont to follow, pending placement. COVID test came is negative today. 05/06/22: Patient off isolation today, continue tube feeding. Pending placement. Patient is chronic metabolic encephalopathy with agitation requiring restraint and scheduled Haldol, 22/05 total care, tube feeding dependent, high risk for aspiration, unable to follow any commands, with extremely poor prognosis. Jason chery need hospice care. But no family member found to sign up for hospice. Continue to follow clinically with supportive care. 05/07/22: Continue to follow clinically with supportive care. pending placement. no family member found so far. 05/08/22; pending placement, cont supportive care. severe dementia, with 22/05 care. 05/09/22: patient on 10L o2 today, possible aspiration, repeat cxr, pending placement, no family member found so far. 05/10/2022; patient clinically no change, chest x-ray worsening infiltrates Continue supportive care oxygen titrate O2 sats to more than 90%, restraint for safety, continue tube feeding Consider hospice 05/11; discharge planning awaiting hospice evaluation . History Interval history: I have seen and examined the patient at the bedside Patient is noncommunicative unresponsive restraint for safety receiving tube feeding Last night events noted episode of hypotension This morning patient blood pressures are reasonable level Vital signs noted Hospitalist Physical - Constitutional Vitals: Temp Pulse Resp BP Pulse Ox 97.5 F L 99 H 24 120/60 100 05/12/22 17:03 05/12/22 17:03 05/12/22 17:03 05/12/22 17:03 05/12/22 17:03 General appearance: Present: no acute distress, cachectic, disheveled, other (Noncommunicative) - EENT Eyes: Present: PERRL, EOM intact - Neck Neck: Present: supple, normal ROM - Respiratory Respiratory effort: normal Respiratory: bilateral: diminished, negative: rales, rhonchi, wheezing - Cardiovascular Rhythm: regular Heart Sounds: Present: S1 & S2 - Extremities Extremities: no ischemia, No edema - Abdominal General gastrointestinal: soft, non-tender, non-distended, normal bowel sounds - Integumentary Integumentary: Present: clear, warm - Psychiatric Psychiatric: other (Noncommunicative) - Neurologic Neurologic: other (Noncommunicative) Results - Labs CBC & Chem 7: 05/12/22 04:34 05/12/22 04:34 Labs: Laboratory Last Values WBC 11.5 K/mm3 (4.5-11.0) H 05/12/22 04:34 RBC 3.23 M/mm3 (3.65-5.03) L 05/12/22 04:34 Hgb 10.2 gm/dl (11.8-15.2) L 05/12/22 04:34 Hct 30.8 % (35.5-45.6) L 05/12/22 04:34 MCV 96 fl (84-94) H 05/12/22 04:34 MCH 32 pg (28-32) 05/12/22 04:34 MCHC 33 % (32-34) 05/12/22 04:34 RDW 13.7 % (13.2-15.2) 05/12/22 04:34 Plt Count 267 K/mm3 (140-440) 05/12/22 04:34 Lymph % (Auto) 9.9 % (13.4-35.0) L 05/06/22 04:47 Emery % (Auto) 13.6 % (0.0-7.3) H 05/06/22 04:47 Eos % (Auto) 0.2 % (0.0-4.3) 05/06/22 04:47 Baso % (Auto) 0.4 % (0.0-1.8) 05/06/22 04:47 Lymph # (Auto) 0.9 K/mm3 (1.2-5.4) L 05/06/22 04:47 Emery # (Auto) 1.2 K/mm3 (0.0-0.8) H 05/06/22 04:47 Eos # (Auto) 0.0 K/mm3 (0.0-0.4) 05/06/22 04:47 Baso # (Auto) 0.0 K/mm3 (0.0-0.1) 05/06/22 04:47 Add Manual Diff Complete 05/12/22 04:34 Total Counted 100 05/12/22 04:34 Seg Neutrophils % Immigration Investigator 05/10/22 04:56 Seg Neuts % (Manual) 93.0 % (40.0-70.0) H 05/12/22 04:34 Band Neutrophils % 1.0 % 05/12/22 04:34 Lymphocytes % (Manual) 3.0 % (13.4-35.0) L 05/12/22 04:34 Reactive Lymphs % (Man) 0 % 05/12/22 04:34 Monocytes % (Manual) 2.0 % (0.0-7.3) 05/12/22 04:34 Eosinophils % (Manual) 0 % (0.0-4.3) 05/12/22 04:34 Basophils % (Manual) 0 % (0.0-1.8) 05/12/22 04:34 Metamyelocytes % 1.0 % 05/12/22 04:34 Myelocytes % 0 % 05/12/22 04:34 Promyelocytes % 0 % 05/12/22 04:34 Blast Cells % 0 % 05/12/22 04:34 Nucleated RBC % Not Reportable 05/12/22 04:34 Seg Neutrophils # 6.7 K/mm3 (1.8-7.7) 05/06/22 04:47 Seg Neutrophils # Man 10.7 K/mm3 (1.8-7.7) H 05/12/22 04:34 Band Neutrophils # 0.1 K/mm3 05/12/22 04:34 Lymphocytes # (Manual) 0.3 K/mm3 (1.2-5.4) L 05/12/22 04:34 Abs React Lymphs (Man) 0.0 K/mm3 05/12/22 04:34 Monocytes # (Manual) 0.2 K/mm3 (0.0-0.8) 05/12/22 04:34 Eosinophils # (Manual) 0.0 K/mm3 (0.0-0.4) 05/12/22 04:34 Basophils # (Manual) 0.0 K/mm3 (0.0-0.1) 05/12/22 04:34 Metamyelocytes # 0.1 K/mm3 05/12/22 04:34 Myelocytes # 0.0 K/mm3 05/12/22 04:34 Promyelocytes # 0.0 K/mm3 05/12/22 04:34 Blast Cells # 0.0 K/mm3 05/12/22 04:34 WBC Morphology Not Reportable 05/12/22 04:34 Hypersegmented Neuts Not Reportable 05/12/22 04:34 Hyposegmented Neuts Not Reportable 05/12/22 04:34 Hypogranular Neuts Not Reportable 05/12/22 04:34 Smudge Cells Not Reportable 05/12/22 04:34 Toxic Granulation Not Reportable 05/12/22 04:34 Toxic Vacuolation Not Reportable 05/12/22 04:34 Dohle Bodies Not Reportable 05/12/22 04:34 Pelger-Huet Anomaly Not Reportable 05/12/22 04:34 Maria Del Rosario Rods Not Reportable 05/12/22 04:34 Platelet Estimate Consistent w auto 05/12/22 04:34 Clumped Platelets Not Reportable 05/12/22 04:34 Plt Clumps, EDTA Not Reportable 05/12/22 04:34 Large Platelets Rare 05/12/22 04:34 Giant Platelets Not Reportable 05/12/22 04:34 Platelet Satelliting Not Reportable 05/12/22 04:34 Plt Morphology Comment Not Reportable 05/12/22 04:34 RBC Morphology Not Reportable 05/12/22 04:34 Dimorphic RBCs Not Reportable 05/12/22 04:34 Polychromasia Not Reportable 05/12/22 04:34 Hypochromasia Not Reportable 05/12/22 04:34 Poikilocytosis 1+ 05/12/22 04:34 Anisocytosis 1+ 05/12/22 04:34 Microcytosis 1+ 05/12/22 04:34 Macrocytosis Not Reportable 05/12/22 04:34 Spherocytes Rare 05/12/22 04:34 Pappenheimer Bodies Not Reportable 05/12/22 04:34 Sickle Cells Not Reportable 05/12/22 04:34 Target Cells Not Reportable 05/12/22 04:34 Tear Drop Cells Not Reportable 05/12/22 04:34 Ovalocytes Not Reportable 05/12/22 04:34 Stomatocytes Rare 05/10/22 04:56 Helmet Cells Not Reportable 05/12/22 04:34 Camara-Dutch Neck Bodies Not Reportable 05/12/22 04:34 Avon Rings Not Reportable 05/12/22 04:34 Dao Cells Not Reportable 05/12/22 04:34 Bite Cells Not Reportable 05/12/22 04:34 Crenated Cell Not Reportable 05/12/22 04:34 Elliptocytes Not Reportable 05/12/22 04:34 Acanthocytes (Spur) Not Reportable 05/12/22 04:34 Rouleaux Not Reportable 05/12/22 04:34 Hemoglobin C Crystals Not Reportable 05/12/22 04:34 Schistocytes Not Reportable 05/12/22 04:34 Malaria parasites Not Reportable 05/12/22 04:34 Isidro Bodies Not Reportable 05/12/22 04:34 Hem Pathologist Commnt No 05/12/22 04:34 D-Dimer 376.26 ng/mlDDU (0-234) H 04/18/22 09:00 Sodium 158 mmol/L (137-145) H 05/12/22 04:34 Potassium 5.3 mmol/L (3.6-5.0) H 05/12/22 04:34 Chloride 113.0 mmol/L (98-107) H 05/12/22 04:34 Carbon Dioxide 40 mmol/L (22-30) H 05/12/22 04:34 Anion Gap 10 mmol/L 05/12/22 04:34 BUN 101 mg/dL (9-20) H 05/12/22 04:34 Creatinine 1.9 mg/dL (0.8-1.3) H 05/12/22 04:34 Estimated GFR 35 ml/min 05/12/22 04:34 BUN/Creatinine Ratio 53 % 05/12/22 04:34 Glucose 184 mg/dL (75-100) H 05/12/22 04:34 POC Glucose 161 mg/dL (70-105) H 05/12/22 16:57 Calcium 11.1 mg/dL (8.4-10.2) H 05/12/22 04:34 Magnesium 2.20 mg/dL (1.7-2.3) 05/03/22 04:53 Ferritin 1407.0 ng/mL (30.0-300.0) H 04/18/22 09:00 Total Bilirubin 0.60 mg/dL (0.1-1.2) 05/03/22 04:53 AST 20 units/L (5-40) 05/03/22 04:53 ALT 26 units/L (7-56) 05/03/22 04:53 Alkaline Phosphatase 103 units/L (35-129) 05/03/22 04:53 Ammonia 14.0 umol/L (25-60) L 04/30/22 14:41 Lactate Dehydrogenase 229 units/L (91-180) H 04/18/22 09:00 C-Reactive Protein 1.10 mg/dL (0.00-1.30) 04/18/22 09:00 Total Protein 6.0 g/dL (6.3-8.2) L 05/03/22 04:53 Albumin 2.5 g/dL (3.9-5) L 05/03/22 04:53 Albumin/Globulin Ratio 0.7 % 05/03/22 04:53 Valproic Acid 31.2 ug/mL (50-100) L 05/09/22 11:01 SARS-CoV-2 (PCR) Negative (Negative) 05/05/22 12:37 Kaufman/IV: Voiding Method Condom Catheter Active Medications - Current Medications Current Medications: Generic Name Dose Route Start Last Admin Trade Name Freq PRN Reason Stop Dose Admin Acetaminophen 650 mg 04/06/22 15:59 05/11/22 22:36 Acetaminophen 325 Mg Tab PO 650 mg Q4H PRN Administration Pain MILD(1-3)/Fever >100.5/MCKENZIE Albuterol 2.5 mg 04/06/22 15:59 05/08/22 16:23 Albuterol 2.5 Mg/3 Ml Nebu IH 2.5 mg Q4HRT PRN Administration Shortness Of Breath Lipase/Protease/Amylase 1 each 04/26/22 18:00 Lipase 10,500/Protease 25,000/Amylase 43,750 (Units) Dr Barrios FEEDTUBE PRN PRN For Clogged Feeding Tube Aspirin 81 mg 04/30/22 17:00 05/12/22 10:10 Aspirin 81 Mg Tab Chew PO 81 mg QDAY KATELYNN Administration Cholecalciferol 1,000 unit 04/07/22 10:00 05/12/22 10:09 Cholecalciferol (Vit D3) 1000 Unit (25 Mcg) Tab PO 1,000 unit QDAY KATELYNN Administration Clonidine HCl 0.3 mg 04/26/22 14:00 07/12/22 14:14 Clonidine Tts 0.3 Mg/24 Hr Patch TD Not Given Tu@1400 [facility] Fluticasone Propionate 50 mcg 04/07/22 10:00 05/12/22 10:11 Fluticasone Propionate Nasal Glide 16 Gm NS 50 mcg QDAY [facility] Administration Haloperidol 5 mg 05/03/22 15:00 05/12/22 15:14 Haloperidol 5 Mg Tab PO 5 mg TID KATELYNN Administration Haloperidol Lactate 5 mg 04/30/22 11:29 05/03/22 22:04 Haloperidol Lactate 5 Mg/1 Ml Inj IM 5 mg Q6H PRN Administration Agitation Heparin Sodium (Porcine) 5,000 unit 04/06/22 22:00 05/12/22 10:10 Heparin 5,000 Unit/1 Ml Vial SUB-Q 5,000 unit Q12HR [facility] Administration Hydralazine HCl 10 mg 04/22/22 15:07 04/27/22 13:50 Hydralazine 20 Mg/1 Ml Inj IV 10 mg Q4H PRN Administration Hypertension Hydromorphone HCl 0.5 mg 04/26/22 17:59 05/02/22 10:57 Hydromorphone 0.5 Mg/0.5 Ml Inj IV 0.5 mg Q8H PRN Administration Pain , Severe (7-10) Insulin Human Lispro 0 unit 05/11/22 07:30 05/12/22 17:45 Insulin Lispro 100 Unit/Ml SUB-Q Not Given Q6HR [facility] Protocol Lidocaine HCl 15 ml 05/07/22 14:00 05/12/22 15:14 Magic Mouthwash 30ml PO 15 ml TID [facility] Administration Melatonin 5 mg 04/07/22 11:21 04/11/22 23:27 Melatonin 5 Mg Tab PO 5 mg QHS PRN Administration Sleep Mirtazapine 15 mg 04/11/22 22:00 05/11/22 22:44 Mirtazapine 15 Mg Tab PO 15 mg QHS [facility] Administration Ondansetron HCl 4 mg 04/06/22 15:59 Ondansetron 4 Mg/2 Ml Inj IV Q8H PRN Nausea And Vomiting Oxycodone/Acetaminophen 1 tab 04/06/22 15:59 04/13/22 22:21 Oxycodone /Acetaminophen 5-325mg Tab PO 1 tab Q16H PRN Administration Pain, Moderate (4-6) Simple Syrup 15 ml 04/26/22 18:00 Simple Syrup 15 Ml FEEDTUBE PRN PRN Hypoglycemia Simple Syrup 30 ml 04/26/22 18:00 Simple Syrup 15 Ml FEEDTUBE PRN PRN Hypoglycemia Sodium Bicarbonate 325 mg 04/26/22 18:00 Sodium Bicarbonate 325 Mg Tab FEEDTUBE PRN PRN For Clogged Feeding Tube Sodium Chloride 10 ml 04/06/22 22:00 05/12/22 10:10 Sodium Chloride 0.9% 10 Ml Flush Syringe IV 10 ml BID KATELYNN Administration Sodium Chloride 10 ml 04/06/22 15:59 04/29/22 20:05 Sodium Chloride 0.9% 10 Ml Flush Syringe IV 10 ml PRN PRN Administration LINE FLUSH Valproic Acid 500 mg 05/05/22 22:00 05/12/22 10:17 Valproic Acid 250 Mg/5 Ml Oral Liqd PO 500 mg BID KATELYNN Administration Nutrition/Malnutrition Assess - Dietary Evaluation Nutrition/Malnutrition Findings: Nutrition Notes Start: 04/07/22 15:47 Freq: Status: Active Protocol: Document 05/11/22 17:15 FARIBA (Rec: 05/11/22 17:30 FARIBA [id number]) Nutrition Notes Initial or Follow up Brief Note Current Diagnosis Diabetes,Hypertension, Malnutrition Other Pertinent Diagnosis COVID-19, Debility, Dehydration, Metabolic Encephalopathy, Dementia ... Current Diet TF-Glucerna 1.2 Joss @ 55 ml/hr (from B 05/09). Height 5 ft 2 in Weight 39.6 kg [place] Body Weight (kg) 53.63 BMI 16.0 Weight change and time frame Discrepancy of 4.1 Kg body weight loss in 2 days reported Weight Status Underweight Subjective/Other Information RD consult for routine F/U on TF tolerance/continuation. TF tolerance/continuation. TF continues as prescribed, and well tolerated, according to RN notes. RN note on 05/11/22 07:48: Pt alert and lethargic, confused, total care, venturi mask ( 15L), tolerating tube feeding - 55 ml/hr, dressing to sacrum stage 2 wound done, katelynn meds given, resting okay, barrie soft restraints, no acute distress. - END OF NOTE. Pt is on Venturi Mask+, O2 saturation @ 98%, according to Physical Assessment History notes. Percent of energy/protein needs met: Prescribed TF-Glucerna 1.2 Joss @ 55 ml/hr provides for energy/protein needs (1,285 Kcal/64 g) during LOS, 100% Kcal; 119% AA. Is patient on ventilator? No Is Patient Ambulatory and/or Out of Bed No REE-([place]-confined to bed) 1224.924 Kcal/Kg value to use for calculation 40 Approximate Energy Requirements Using 1584 kcal/Kg Calculation Used for Recommendations Kcal/kg Additional Notes Protein: 1.2-1.5 g/Kg ABW; 52- 66 g/day. Fluids: 1 ml/Kcal, or as per MD. Nutrition Intervention Nutrition Support: Continue TF-Glucerna 1.2 Joss @ 55 ml/hr. Flush: 85 ml water Q 4 hr, or as per MD. Kcal 1,584 Protein (gm) 79 Carbohydrates (gm) 151 Fat (gm) 79 Fluid (mL) 1,063 Fiber (gm) 21 % RDI: 100% Kcal; 119% AA. Goal #1 Provide at least 75% of energy /protein needs through Enteral Feeding during LOS. Follow-Up By: 05/18/22 Additional Comments Continue monitoring TF tolerance and BM.
[2022-05-12] MEDS: MIRTAZAPINE 15 MG TAB PO SCH (21:00)
[2022-05-13] MEDS: INSULIN LISPRO 100 UNIT/ML SUB-Q SCH ×4 (00:38→18:41)
[2022-05-13] MEDS: HALOPERIDOL 5 MG TAB PO SCH ×3 (11:46→21:18)
[2022-05-13] MEDS: VALPROIC ACID 250 MG/5 ML ORAL LIQD PO SCH ×2 (11:46→21:18)
[2022-05-13] MEDS: MAGIC MOUTHWASH 30ML PO SCH ×3 (11:46→21:19)
[2022-05-13] MEDS: ASPIRIN 81 MG TAB CHEW PO SCH (11:46)
[2022-05-13] MEDS: oxyCODONE /ACETAMINOPHEN 5-325MG TAB PO PRN (11:47)
[2022-05-13] MEDS: CHOLECALCIFEROL (VIT D3) 1000 UNIT (25 mcg) TAB PO SCH (11:47)
[2022-05-13] MEDS: HEPARIN 5,000 UNIT/1 ML VIAL SUB-Q SCH ×2 (11:48→21:18)
[2022-05-13] MEDS: FLUTICASONE PROPIONATE NASAL SPRAY 16 GM NS SCH (11:48)
--- NOTE | 2022-05-13 19:09 | Progress Note ---
Assessment and Plan Assessment and plan: 76 YO Male PMH with Vascular Dementia with Behavioral disturbance, Cerebral Atherosclerosis, DM, BPH, HTN, Malnutrition, Coronavirus Infection. Patient remains confused, lethargic with diminished cognition. Patient remains at baseline level of cognition and function. Hospice team consulted. Case varun sharma consulted. COVID-19 positive x4 -- COVID-19 positivex4 03/31/2022, 04/13/2022,04/20/22 and, 04/29/2022 Test negative on 05/05/22 s/p isolation precautions and protocols vitamin C therapy, vitamin D therapy, zinc therapy, supplemental oxygen, pulse oximetry, prophylactic anticoagulation. On dexamethasone as intermittently needed O2 Follow-up inflammatory markers, ID consulted: recommended supportive care --hypertensionadded clonidine patch --aspiration pneumonia, continue empiric antibiotics, follow clinically Chest x-ray, worsening infiltrates, DC planning home hospice versus hospice facility However no family to give consent --Vascular dementia with behavioral disturbance Verbal prompting, verbal redirection, benzodiazepine therapy as clinically indicated. --Cerebral atherosclerosis Risk factor reduction, antiplatelet therapy, supportive care. --General debility Bed alarm, fall precautions, supportive care. Physical therapy occupational therapy -- Mild to moderate malnutrition Increase protein intake, dietary supplementation when awake and alert only. Aspiration precautions. --Nicotine dependence Smoking cessation counseled, supportive care, behavior change counseled, pulse 50 minutes. --Volume depletion/dehydration IV fluids and supportive care, increase oral fluids --Metabolic encephalopathy Multifactorial , underlying dementia , malnutrition , advanced age COVID-19 infection , psych problems Treat underlying cause and supportive care --DVT prophylaxis SCD to bilateral extremities while in bed, prophylactic anticoagulation --Advance care planning patient is full code at this time. Discussed patient care with Quynhheather Britt, . The plan is to make patient DNR and plan for discharge to longterm facility with hospice care. Awaiting arrival of Ms. Britt to the hospital for family conference. According to CM no family has been reported. We will closely monitor the patient and adjust the management as needed Plan of care reviewed with the patient's nurse DC planning per case management Disposition; continue current management, DC planning per case management and family Brief history and daily Hospital course: 76 YO Male PMH with Vascular Dementia with Behavioral disturbance, Cerebral Atherosclerosis, DM, BPH, HTN, Malnutrition, Coronavirus Infection. Patient remains confused, lethargic with diminished cognition. Patient remains at baseline level of cognition and function. Hospice team consulted. Case management consulted. COVID-19 positive x4 04/13/2022; patient is lethargic sleepy, restraint for safety Continue current management, psych evaluation noted and appreciated 04/14/2022; patient is more alert today trying to pull , agitated On restraints, refusing to eat, consider Dobbhoff placement for tube feeding if needed 04/15/2022; COVID-19 positive[ 03/31 and 04/13] Check inflammatory markers, ID consulted Patient is refusing medications and diet Confused and agitated, Dobbhoff placement and tube feeding per protocol 04/16/2022; patient is more alert and awake Tolerating liquids, will advance the diet as tolerated Check physical therapy occupational therapy evaluation and recommendations DC planning per case management 04/17/2022; patient is on pured diet, Will advance the diet as tolerated 04/18/2022; recommend hospice, try to call next of kin the daughter many times Unable to reach, hospice consult inpatient versus home hospice versus SNF with hospice 04/19: Patient remains on restraint and confused. He is on 2 L nasal cannula O2. We will start on dexamethasone for 10 days. We will also Low-dose of Seroquel for agitation and anxiety. Continue to follow clinically, waiting on SNF placement 04/20: Cont seroquel, restraint as needed. follow clinically. still positive for Covid, cont dexamethasone, pending placement. No family info in the file. 04/21: remains restraint, patient o RA today, does not follow commend, added clonidine path for HTN, stopped iv fluid.follow clinically. 04/22: Patient remains in restraints. Patient currently on room air with saturations at 96%. Patient remains confused and does not follow commands. Blood pressure much better controlled. Continue current regimen. Please review case management notes from 04/20. Caregiver currently unable to accept the patient at home until they find a place that can meet his needs. 04/23: Patient remains confused. Continue current regimen. Awaiting placement. 04/24: Continue dexamethasone and supplemental O2. Patient currently requiring 4 L O2 with saturations of 99%. Patient remains confused. Psychiatry recommends valproic acid, Remeron and Seroquel. Case management reports patient has not received any acceptances to halfway. Patient previously lived alone in an RV. At this time, patient is unable to live alone and caregiver is unable to care for the patient until they find a place that can meet his needs. 04/25: Continue dexamethasone and supplemental O2. Patient remains on 4 L O2 with saturations of 99%. Patient remains confused and does not follow commands. Patient still requiring restraints. Psychiatry recommends valproic acid, Remeron and Seroquel. Case management reports patient has not received any acceptances to halfway. Patient previously lived alone in an RV. At this time, patient is unable to live alone and caregiver is unable to care for the patient until they find a place that can meet his needs. ; pending placement, continue current management Place Dobbhoff feeding tube, nutrition consult for tube feeding Monitor closely and adjust the management as needed 04/27; patient is receiving Dobbhoff feeds, check speech therapy for swallow evaluation If abnormal consider PEG placement, will try to contact family Daughter Lorenza Beauchamp To discuss the goals of treatment and discharge planning Pending halfway with hospice. Hypernatremia Free water via Dobbhoff 04/28/2022; speech evaluated the patient, patient is unable to follow swallow eval Patient needs PEG placement, however no family available to give consent Case management to assist with dressing any family, if not available will check with the ethics committee For assistance. Difficult to discharge/placement as patient has no next of kin available. 04/29/2022; crooks PCR test third time today's positive. Continue tube feeding, DC planning, no family or contact available 04/30/22; patient pulled out Dobbhoff tube last night We will replace Dobbhoff tube start feeding as tolerated Still do not have any contact with the family members 05/01/2022; continue Dobbhoff feeds, restraints for safety DC planning[difficult to place due to social/no family reasons] 05/02/2022; restraints for safety, Dobbhoff feeds, awaiting placement Multiple social issues, no family available, COVID-19 x4 05/03/2022: Remains restrained, chest x-ray last night suggestive for Infiltrate versus atelectasis. Antibiotic started for possible aspiration pneumonia. Pending placement, continue to follow 05/04/22: -- Changed antibiotic to Augmentin, continue to follow clinically, pending placement 05/05/22; Valproic level 131. Decreased Depakote 500mg po BID, cont to follow, pending placement. COVID test came is negative today. 05/06/22: Patient off isolation today, continue tube feeding. Pending placement. Patient is chronic metabolic encephalopathy with agitation requiring restraint and scheduled Haldol, 22/05 total care, tube feeding dependent, high risk for aspiration, unable to follow any commands, with extremely poor prognosis. Jason chery need hospice care. But no family member found to sign up for hospice. Continue to follow clinically with supportive care. 05/07/22: Continue to follow clinically with supportive care. pending placement. no family member found so far. 05/08/22; pending placement, cont supportive care. severe dementia, with 22/05 care. 05/09/22: patient on 10L o2 today, possible aspiration, repeat cxr, pending placement, no family member found so far. 05/10/2022; patient clinically no change, chest x-ray worsening infiltrates Continue supportive care oxygen titrate O2 sats to more than 90%, restraint for safety, continue tube feeding Consider hospice 05/11; discharge planning awaiting hospice evaluation 05/12; clinically no change. 05/13; patient continues to be noncommunicative, on Dobbhoff feeds Awaiting placement, social issues History Interval history: I have seen and examined the patient at the bedside Patient's chart and medications reviewed No new events reported by the nursing Vital signs noted Hospitalist Physical - Constitutional Vitals: Temp Pulse Resp BP Pulse Ox 97.5 F L 63 16 111/63 94 05/13/22 05:26 05/13/22 05:26 05/13/22 05:26 05/13/22 05:26 05/13/22 08:49 General appearance: Present: no acute distress, cachectic, disheveled, other (Noncommunicative) - EENT Eyes: Present: PERRL, EOM intact - Neck Neck: Present: supple, normal ROM - Respiratory Respiratory effort: normal Respiratory: bilateral: diminished, negative: rales, rhonchi, wheezing - Cardiovascular Rhythm: regular Heart Sounds: Present: S1 & S2 - Extremities Extremities: no ischemia, No edema - Abdominal General gastrointestinal: soft, non-tender, non-distended, normal bowel sounds - Integumentary Integumentary: Present: clear, warm - Psychiatric Psychiatric: other (Noncommunicative) - Neurologic Neurologic: other (Noncommunicative) Results - Labs CBC & Chem 7: 05/12/22 04:34 05/12/22 04:34 Labs: Laboratory Last Values WBC 11.5 K/mm3 (4.5-11.0) H 05/12/22 04:34 RBC 3.23 M/mm3 (3.65-5.03) L 05/12/22 04:34 Hgb 10.2 gm/dl (11.8-15.2) L 05/12/22 04:34 Hct 30.8 % (35.5-45.6) L 05/12/22 04:34 MCV 96 fl (84-94) H 05/12/22 04:34 MCH 32 pg (28-32) 05/12/22 04:34 MCHC 33 % (32-34) 05/12/22 04:34 RDW 13.7 % (13.2-15.2) 05/12/22 04:34 Plt Count 267 K/mm3 (140-440) 05/12/22 04:34 Lymph % (Auto) 9.9 % (13.4-35.0) L 05/06/22 04:47 Walsh % (Auto) 13.6 % (0.0-7.3) H 05/06/22 04:47 Eos % (Auto) 0.2 % (0.0-4.3) 05/06/22 04:47 Baso % (Auto) 0.4 % (0.0-1.8) 05/06/22 04:47 Lymph # (Auto) 0.9 K/mm3 (1.2-5.4) L 05/06/22 04:47 Walsh # (Auto) 1.2 K/mm3 (0.0-0.8) H 05/06/22 04:47 Eos # (Auto) 0.0 K/mm3 (0.0-0.4) 05/06/22 04:47 Baso # (Auto) 0.0 K/mm3 (0.0-0.1) 05/06/22 04:47 Add Manual Diff Complete 05/12/22 04:34 Total Counted 100 05/12/22 04:34 Seg Neutrophils % Pottery Striper 05/10/22 04:56 Seg Neuts % (Manual) 93.0 % (40.0-70.0) H 05/12/22 04:34 Band Neutrophils % 1.0 % 05/12/22 04:34 Lymphocytes % (Manual) 3.0 % (13.4-35.0) L 05/12/22 04:34 Reactive Lymphs % (Man) 0 % 05/12/22 04:34 Monocytes % (Manual) 2.0 % (0.0-7.3) 05/12/22 04:34 Eosinophils % (Manual) 0 % (0.0-4.3) 05/12/22 04:34 Basophils % (Manual) 0 % (0.0-1.8) 05/12/22 04:34 Metamyelocytes % 1.0 % 05/12/22 04:34 Myelocytes % 0 % 05/12/22 04:34 Promyelocytes % 0 % 05/12/22 04:34 Blast Cells % 0 % 05/12/22 04:34 Nucleated RBC % Not Reportable 05/12/22 04:34 Seg Neutrophils # 6.7 K/mm3 (1.8-7.7) 05/06/22 04:47 Seg Neutrophils # Man 10.7 K/mm3 (1.8-7.7) H 05/12/22 04:34 Band Neutrophils # 0.1 K/mm3 05/12/22 04:34 Lymphocytes # (Manual) 0.3 K/mm3 (1.2-5.4) L 05/12/22 04:34 Abs React Lymphs (Man) 0.0 K/mm3 05/12/22 04:34 Monocytes # (Manual) 0.2 K/mm3 (0.0-0.8) 05/12/22 04:34 Eosinophils # (Manual) 0.0 K/mm3 (0.0-0.4) 05/12/22 04:34 Basophils # (Manual) 0.0 K/mm3 (0.0-0.1) 05/12/22 04:34 Metamyelocytes # 0.1 K/mm3 05/12/22 04:34 Myelocytes # 0.0 K/mm3 05/12/22 04:34 Promyelocytes # 0.0 K/mm3 05/12/22 04:34 Blast Cells # 0.0 K/mm3 05/12/22 04:34 WBC Morphology Not Reportable 05/12/22 04:34 Hypersegmented Neuts Not Reportable 05/12/22 04:34 Hyposegmented Neuts Not Reportable 05/12/22 04:34 Hypogranular Neuts Not Reportable 05/12/22 04:34 Smudge Cells Not Reportable 05/12/22 04:34 Toxic Granulation Not Reportable 05/12/22 04:34 Toxic Vacuolation Not Reportable 05/12/22 04:34 Dohle Bodies Not Reportable 05/12/22 04:34 Pelger-Huet Anomaly Not Reportable 05/12/22 04:34 Maria Del Rosario Rods Not Reportable 05/12/22 04:34 Platelet Estimate Consistent w auto 05/12/22 04:34 Clumped Platelets Not Reportable 05/12/22 04:34 Plt Clumps, EDTA Not Reportable 05/12/22 04:34 Large Platelets Rare 05/12/22 04:34 Giant Platelets Not Reportable 05/12/22 04:34 Platelet Satelliting Not Reportable 05/12/22 04:34 Plt Morphology Comment Not Reportable 05/12/22 04:34 RBC Morphology Not Reportable 05/12/22 04:34 Dimorphic RBCs Not Reportable 05/12/22 04:34 Polychromasia Not Reportable 05/12/22 04:34 Hypochromasia Not Reportable 05/12/22 04:34 Poikilocytosis 1+ 05/12/22 04:34 Anisocytosis 1+ 05/12/22 04:34 Microcytosis 1+ 05/12/22 04:34 Macrocytosis Not Reportable 05/12/22 04:34 Spherocytes Rare 05/12/22 04:34 Pappenheimer Bodies Not Reportable 05/12/22 04:34 Sickle Cells Not Reportable 05/12/22 04:34 Target Cells Not Reportable 05/12/22 04:34 Tear Drop Cells Not Reportable 05/12/22 04:34 Ovalocytes Not Reportable 05/12/22 04:34 Stomatocytes Rare 05/10/22 04:56 Helmet Cells Not Reportable 05/12/22 04:34 [place] Bodies Not Reportable 05/12/22 04:34 [place] Rings Not Reportable 05/12/22 04:34 Dao Cells Not Reportable 05/12/22 04:34 Bite Cells Not Reportable 05/12/22 04:34 Crenated Cell Not Reportable 05/12/22 04:34 Elliptocytes Not Reportable 05/12/22 04:34 Acanthocytes (Spur) Not Reportable 05/12/22 04:34 Rouleaux Not Reportable 05/12/22 04:34 Hemoglobin C Crystals Not Reportable 05/12/22 04:34 Schistocytes Not Reportable 05/12/22 04:34 Malaria parasites Not Reportable 05/12/22 04:34 Isidro Bodies Not Reportable 05/12/22 04:34 Hem Pathologist Commnt No 05/12/22 04:34 D-Dimer 376.26 ng/mlDDU (0-234) H 04/18/22 09:00 Sodium 158 mmol/L (137-145) H 05/12/22 04:34 Potassium 5.3 mmol/L (3.6-5.0) H 05/12/22 04:34 Chloride 113.0 mmol/L (98-107) H 05/12/22 04:34 Carbon Dioxide 40 mmol/L (22-30) H 05/12/22 04:34 Anion Gap 10 mmol/L 05/12/22 04:34 BUN 101 mg/dL (9-20) H 05/12/22 04:34 Creatinine 1.9 mg/dL (0.8-1.3) H 05/12/22 04:34 Estimated GFR 35 ml/min 05/12/22 04:34 BUN/Creatinine Ratio 53 % 05/12/22 04:34 Glucose 184 mg/dL (75-100) H 05/12/22 04:34 POC Glucose 170 mg/dL (70-105) H 05/13/22 16:54 Calcium 11.1 mg/dL (8.4-10.2) H 05/12/22 04:34 Magnesium 2.20 mg/dL (1.7-2.3) 05/03/22 04:53 Ferritin 1407.0 ng/mL (30.0-300.0) H 04/18/22 09:00 Total Bilirubin 0.60 mg/dL (0.1-1.2) 05/03/22 04:53 AST 20 units/L (5-40) 05/03/22 04:53 ALT 26 units/L (7-56) 05/03/22 04:53 Alkaline Phosphatase 103 units/L (35-129) 05/03/22 04:53 Ammonia 14.0 umol/L (25-60) L 04/30/22 14:41 Lactate Dehydrogenase 229 units/L (91-180) H 04/18/22 09:00 C-Reactive Protein 1.10 mg/dL (0.00-1.30) 04/18/22 09:00 Total Protein 6.0 g/dL (6.3-8.2) L 05/03/22 04:53 Albumin 2.5 g/dL (3.9-5) L 05/03/22 04:53 Albumin/Globulin Ratio 0.7 % 05/03/22 04:53 Valproic Acid 31.2 ug/mL (50-100) L 05/09/22 11:01 SARS-CoV-2 (PCR) Negative (Negative) 05/05/22 12:37 Kaufman/IV: Voiding Method Condom Catheter Active Medications - Current Medications Current Medications: Generic Name Dose Route Start Last Admin Trade Name Freq PRN Reason Stop Dose Admin Acetaminophen 650 mg 04/06/22 15:59 05/11/22 22:36 Acetaminophen 325 Mg Tab PO 650 mg Q4H PRN Administration Pain MILD(1-3)/Fever >100.5/MCKENZIE Albuterol 2.5 mg 04/06/22 15:59 05/08/22 16:23 Albuterol 2.5 Mg/3 Ml Nebu IH 2.5 mg Q4HRT PRN Administration Shortness Of Breath Lipase/Protease/Amylase 1 each 04/26/22 18:00 Lipase 10,500/Protease 25,000/Amylase 43,750 (Units) Dr Barrios FEEDTUBE PRN PRN For Clogged Feeding Tube Aspirin 81 mg 04/30/22 17:00 05/13/22 11:46 Aspirin 81 Mg Tab Chew PO 81 mg QDAY KATELYNN Administration Cholecalciferol 1,000 unit 04/07/22 10:00 05/13/22 11:47 Cholecalciferol (Vit D3) 1000 Unit (25 Mcg) Tab PO 1,000 unit QDAY KATELYNN Administration Clonidine HCl 0.3 mg 04/26/22 14:00 05/10/22 14:14 Clonidine Tts 0.3 Mg/24 Hr Patch TD Not Given Tu@1400 [facility] Fluticasone Propionate 50 mcg 04/07/22 10:00 05/13/22 11:48 Fluticasone Propionate Nasal [place] 16 Gm NS 50 mcg QDAY KATELYNN Administration Haloperidol 5 mg 05/03/22 15:00 05/13/22 16:05 Haloperidol 5 Mg Tab PO 5 mg TID KATELYNN Administration Haloperidol Lactate 5 mg 04/30/22 11:29 05/03/22 22:04 Haloperidol Lactate 5 Mg/1 Ml Inj IM 5 mg Q6H PRN Administration Agitation Heparin Sodium (Porcine) 5,000 unit 04/06/22 22:00 05/13/22 11:48 Heparin 5,000 Unit/1 Ml Vial SUB-Q 5,000 unit Q12HR KATELYNN Administration Hydralazine HCl 10 mg 04/22/22 15:07 04/27/22 13:50 Hydralazine 20 Mg/1 Ml Inj IV 10 mg Q4H PRN Administration Hypertension Hydromorphone HCl 0.5 mg 04/26/22 17:59 05/02/22 10:57 Hydromorphone 0.5 Mg/0.5 Ml Inj IV 0.5 mg Q8H PRN Administration Pain , Severe (7-10) Insulin Human Lispro 0 unit 05/11/22 07:30 05/13/22 18:41 Insulin Lispro 100 Unit/Ml SUB-Q 2 unit Q6HR [facility] Administration Protocol Lidocaine HCl 15 ml 05/07/22 14:00 05/13/22 16:06 Magic Mouthwash 30ml PO 15 ml TID [facility] Administration Melatonin 5 mg 04/07/22 11:21 04/11/22 23:27 Melatonin 5 Mg Tab PO 5 mg QHS PRN Administration Sleep Mirtazapine 15 mg 04/11/22 22:00 05/12/22 21:00 Mirtazapine 15 Mg Tab PO 15 mg QHS [facility] Administration Ondansetron HCl 4 mg 04/06/22 15:59 Ondansetron 4 Mg/2 Ml Inj IV Q8H PRN Nausea And Vomiting Oxycodone/Acetaminophen 1 tab 04/06/22 15:59 05/13/22 11:47 Oxycodone /Acetaminophen 5-325mg Tab PO 1 tab Q16H PRN Administration Pain, Moderate (4-6) Simple Syrup 15 ml 04/26/22 18:00 Simple Syrup 15 Ml FEEDTUBE PRN PRN Hypoglycemia Simple Syrup 30 ml 04/26/22 18:00 Simple Syrup 15 Ml FEEDTUBE PRN PRN Hypoglycemia Sodium Bicarbonate 325 mg 04/26/22 18:00 Sodium Bicarbonate 325 Mg Tab FEEDTUBE PRN PRN For Clogged Feeding Tube Sodium Chloride 10 ml 04/06/22 22:00 05/13/22 11:49 Sodium Chloride 0.9% 10 Ml Flush Syringe IV 10 ml BID KATELYNN Administration Sodium Chloride 10 ml 04/06/22 15:59 04/29/22 20:05 Sodium Chloride 0.9% 10 Ml Flush Syringe IV 10 ml PRN PRN Administration LINE FLUSH Valproic Acid 500 mg 05/05/22 22:00 05/13/22 11:46 Valproic Acid 250 Mg/5 Ml Oral Liqd PO 500 mg BID KATELYNN Administration Nutrition/Malnutrition Assess - Dietary Evaluation Nutrition/Malnutrition Findings: Nutrition Notes Start: 04/07/22 15:47 Freq: Status: Active Protocol: Document 05/11/22 17:15 FARIBA (Rec: 05/11/22 17:30 FARIBA [id number]) Nutrition Notes Initial or Follow up Brief Note Current Diagnosis Diabetes,Hypertension, Malnutrition Other Pertinent Diagnosis COVID-19, Debility, Dehydration, Metabolic Encephalopathy, Dementia ... Current Diet TF-Glucerna 1.2 Joss @ 55 ml/hr (from B 05/09). Height 5 ft 2 in Weight 39.6 kg [place] Body Weight (kg) 53.63 BMI 16.0 Weight change and time frame Discrepancy of 4.1 Kg body weight loss in 2 days reported Weight Status Underweight Subjective/Other Information RD consult for routine F/U on TF tolerance/continuation. TF tolerance/continuation. TF continues as prescribed, and well tolerated, according to RN notes. RN note on 05/11/22 07:48: Pt alert and lethargic, confused, total care, venturi mask ( 15L), tolerating tube feeding - 55 ml/hr, dressing to sacrum stage 2 wound done, katelynn meds given, resting okay, barrie soft restraints, no acute distress. - END OF NOTE. Pt is on Venturi Mask+, O2 saturation @ 98%, according to Physical Assessment History notes. Percent of energy/protein needs met: Prescribed TF-Glucerna 1.2 Joss @ 55 ml/hr provides for energy/protein needs (1,285 Kcal/64 g) during LOS, 100% Kcal; 119% AA. Is patient on ventilator? No Is Patient Ambulatory and/or Out of Bed No [facility] 1224.924 Kcal/Kg value to use for calculation 40 Approximate Energy Requirements Using 1584 kcal/Kg Calculation Used for Recommendations Kcal/kg Additional Notes Protein: 1.2-1.5 g/Kg ABW; 52- 66 g/day. Fluids: 1 ml/Kcal, or as per MD. Nutrition Intervention Nutrition Support: Continue TF-Glucerna 1.2 Joss @ 55 ml/hr. Flush: 85 ml water Q 4 hr, or as per MD. Kcal 1,584 Protein (gm) 79 Carbohydrates (gm) 151 Fat (gm) 79 Fluid (mL) 1,063 Fiber (gm) 21 % RDI: 100% Kcal; 119% AA. Goal #1 Provide at least 75% of energy /protein needs through Enteral Feeding during LOS. Follow-Up By: 05/18/22 Additional Comments Continue monitoring TF tolerance and BM.
[2022-05-13] MEDS ORDERED: SODIUM CHLORIDE 0.9% 250ML 250 ML IV ONE (19:11)
--- NOTE | 2022-05-13 19:13 | Progress Note ---
Assessment and Plan Assessment and plan: 76 YO Male PMH with Vascular Dementia with Behavioral disturbance, Cerebral Atherosclerosis, DM, BPH, HTN, Malnutrition, Coronavirus Infection. Patient remains confused, lethargic with diminished cognition. Patient remains at baseline level of cognition and function. Hospice team consulted. Case varun sharma consulted. COVID-19 positive x4 -- COVID-19 positivex4 03/31/2022, 04/13/2022,04/20/22 and, 04/29/2022 Test negative on 05/05/22 s/p isolation precautions and protocols vitamin C therapy, vitamin D therapy, zinc therapy, supplemental oxygen, pulse oximetry, prophylactic anticoagulation. On dexamethasone as intermittently needed O2 Follow-up inflammatory markers, ID consulted: recommended supportive care --hypertensionadded clonidine patch --aspiration pneumonia, continue empiric antibiotics, follow clinically Chest x-ray, worsening infiltrates, DC planning home hospice versus hospice facility However no family to give consent --Vascular dementia with behavioral disturbance Verbal prompting, verbal redirection, benzodiazepine therapy as clinically indicated. --Cerebral atherosclerosis Risk factor reduction, antiplatelet therapy, supportive care. --General debility Bed alarm, fall precautions, supportive care. Physical therapy occupational therapy -- Mild to moderate malnutrition Increase protein intake, dietary supplementation when awake and alert only. Aspiration precautions. --Nicotine dependence Smoking cessation counseled, supportive care, behavior change counseled, pulse 50 minutes. --Volume depletion/dehydration IV fluids and supportive care, increase oral fluids --Metabolic encephalopathy Multifactorial , underlying dementia , malnutrition , advanced age COVID-19 infection , psych problems Treat underlying cause and supportive care --DVT prophylaxis SCD to bilateral extremities while in bed, prophylactic anticoagulation --Advance care planning patient is full code at this time. Discussed patient care with Quynhheather Britt, . The plan is to make patient DNR and plan for discharge to senior living facility with hospice care. Awaiting arrival of Ms. Britt to the hospital for family conference. According to CM no family has been reported. We will closely monitor the patient and adjust the management as needed Plan of care reviewed with the patient's nurse DC planning per case management Disposition; continue current management, DC planning per case management and family Brief history and daily Hospital course: 76 YO Male PMH with Vascular Dementia with Behavioral disturbance, Cerebral Atherosclerosis, DM, BPH, HTN, Malnutrition, Coronavirus Infection. Patient remains confused, lethargic with diminished cognition. Patient remains at baseline level of cognition and function. Hospice team consulted. Case management consulted. COVID-19 positive x4 04/13/2022; patient is lethargic sleepy, restraint for safety Continue current management, psych evaluation noted and appreciated 04/14/2022; patient is more alert today trying to pull , agitated On restraints, refusing to eat, consider Dobbhoff placement for tube feeding if needed 04/15/2022; COVID-19 positive[ 03/31 and 04/13] Check inflammatory markers, ID consulted Patient is refusing medications and diet Confused and agitated, Dobbhoff placement and tube feeding per protocol 04/16/2022; patient is more alert and awake Tolerating liquids, will advance the diet as tolerated Check physical therapy occupational therapy evaluation and recommendations DC planning per case management 04/17/2022; patient is on pured diet, Will advance the diet as tolerated 04/18/2022; recommend hospice, try to call next of kin the daughter many times Unable to reach, hospice consult inpatient versus home hospice versus SNF with hospice 04/19: Patient remains on restraint and confused. He is on 2 L nasal cannula O2. We will start on dexamethasone for 10 days. We will also Low-dose of Seroquel for agitation and anxiety. Continue to follow clinically, waiting on SNF placement 04/20: Cont seroquel, restraint as needed. follow clinically. still positive for Covid, cont dexamethasone, pending placement. No family info in the file. 04/21: remains restraint, patient o RA today, does not follow commend, added clonidine path for HTN, stopped iv fluid.follow clinically. 04/22: Patient remains in restraints. Patient currently on room air with saturations at 96%. Patient remains confused and does not follow commands. Blood pressure much better controlled. Continue current regimen. Please review case management notes from 04/20. Caregiver currently unable to accept the patient at home until they find a place that can meet his needs. 04/23: Patient remains confused. Continue current regimen. Awaiting placement. 04/24: Continue dexamethasone and supplemental O2. Patient currently requiring 4 L O2 with saturations of 99%. Patient remains confused. Psychiatry recommends valproic acid, Remeron and Seroquel. Case management reports patient has not received any acceptances to snf. Patient previously lived alone in an RV. At this time, patient is unable to live alone and caregiver is unable to care for the patient until they find a place that can meet his needs. 04/25: Continue dexamethasone and supplemental O2. Patient remains on 4 L O2 with saturations of 99%. Patient remains confused and does not follow commands. Patient still requiring restraints. Psychiatry recommends valproic acid, Remeron and Seroquel. Case management reports patient has not received any acceptances to snf. Patient previously lived alone in an RV. At this time, patient is unable to live alone and caregiver is unable to care for the patient until they find a place that can meet his needs. ; pending placement, continue current management Place Dobbhoff feeding tube, nutrition consult for tube feeding Monitor closely and adjust the management as needed 04/27; patient is receiving Dobbhoff feeds, check speech therapy for swallow evaluation If abnormal consider PEG placement, will try to contact family Daughter Lorenza Beauchamp To discuss the goals of treatment and discharge planning Pending snf with hospice. Hypernatremia Free water via Dobbhoff 04/28/2022; speech evaluated the patient, patient is unable to follow swallow eval Patient needs PEG placement, however no family available to give consent Case management to assist with dressing any family, if not available will check with the ethics committee For assistance. Difficult to discharge/placement as patient has no next of kin available. 04/29/2022; crooks PCR test third time today's positive. Continue tube feeding, DC planning, no family or contact available 04/30/22; patient pulled out Dobbhoff tube last night We will replace Dobbhoff tube start feeding as tolerated Still do not have any contact with the family members 05/01/2022; continue Dobbhoff feeds, restraints for safety DC planning[difficult to place due to social/no family reasons] 05/02/2022; restraints for safety, Dobbhoff feeds, awaiting placement Multiple social issues, no family available, COVID-19 x4 05/03/2022: Remains restrained, chest x-ray last night suggestive for Infiltrate versus atelectasis. Antibiotic started for possible aspiration pneumonia. Pending placement, continue to follow 05/04/22: -- Changed antibiotic to Augmentin, continue to follow clinically, pending placement 05/05/22; Valproic level 131. Decreased Depakote 500mg po BID, cont to follow, pending placement. COVID test came is negative today. 05/06/22: Patient off isolation today, continue tube feeding. Pending placement. Patient is chronic metabolic encephalopathy with agitation requiring restraint and scheduled Haldol, 22/05 total care, tube feeding dependent, high risk for aspiration, unable to follow any commands, with extremely poor prognosis. Jason chery need hospice care. But no family member found to sign up for hospice. Continue to follow clinically with supportive care. 05/07/22: Continue to follow clinically with supportive care. pending placement. no family member found so far. 05/08/22; pending placement, cont supportive care. severe dementia, with 22/05 care. 05/09/22: patient on 10L o2 today, possible aspiration, repeat cxr, pending placement, no family member found so far. 05/10/2022; patient clinically no change, chest x-ray worsening infiltrates Continue supportive care oxygen titrate O2 sats to more than 90%, restraint for safety, continue tube feeding Consider hospice 05/11; discharge planning awaiting hospice evaluation . 05/12; pending hospice placement, multiple social issues No family available 05/13; patient continues to be noncommunicative, on Dobbhoff feeds Awaiting placement, social issues 05/14/clinically no change, patient is nonresponsive, sedated with psych medications Restraints for safety, Dobbhoff feeds, awaiting hospice placement History Interval history: Seen and examined the patient at the bedside Patient's chart and medications reviewed No new events reported by the nursing vital signs noted Patient is noncommunicative Hospitalist Physical - Constitutional Vitals: Temp Pulse Resp BP Pulse Ox 97.5 F L 63 16 111/63 94 05/13/22 05:26 05/13/22 05:26 05/13/22 05:26 05/13/22 05:26 05/13/22 08:49 General appearance: Present: no acute distress, cachectic, disheveled, other (Lethargic sleeping, noncommunicative) - EENT Eyes: Present: PERRL, EOM intact - Neck Neck: Present: supple, normal ROM - Respiratory Respiratory effort: normal Respiratory: bilateral: diminished, negative: rales, rhonchi, wheezing - Cardiovascular Rhythm: regular Heart Sounds: Present: S1 & S2 - Extremities Extremities: no ischemia, No edema - Abdominal General gastrointestinal: soft, non-tender, non-distended, normal bowel sounds - Integumentary Integumentary: Present: clear, warm - Psychiatric Psychiatric: appropriate mood/affect, cooperative - Neurologic Neurologic: CNII-XII intact, moves all extremities Results - Labs CBC & Chem 7: 05/12/22 04:34 05/12/22 04:34 Labs: Laboratory Last Values WBC 11.5 K/mm3 (4.5-11.0) H 05/12/22 04:34 RBC 3.23 M/mm3 (3.65-5.03) L 05/12/22 04:34 Hgb 10.2 gm/dl (11.8-15.2) L 05/12/22 04:34 Hct 30.8 % (35.5-45.6) L 05/12/22 04:34 MCV 96 fl (84-94) H 05/12/22 04:34 MCH 32 pg (28-32) 05/12/22 04:34 MCHC 33 % (32-34) 05/12/22 04:34 RDW 13.7 % (13.2-15.2) 05/12/22 04:34 Plt Count 267 K/mm3 (140-440) 05/12/22 04:34 Lymph % (Auto) 9.9 % (13.4-35.0) L 05/06/22 04:47 Dixon % (Auto) 13.6 % (0.0-7.3) H 05/06/22 04:47 Eos % (Auto) 0.2 % (0.0-4.3) 05/06/22 04:47 Baso % (Auto) 0.4 % (0.0-1.8) 05/06/22 04:47 Lymph # (Auto) 0.9 K/mm3 (1.2-5.4) L 05/06/22 04:47 Dixon # (Auto) 1.2 K/mm3 (0.0-0.8) H 05/06/22 04:47 Eos # (Auto) 0.0 K/mm3 (0.0-0.4) 05/06/22 04:47 Baso # (Auto) 0.0 K/mm3 (0.0-0.1) 05/06/22 04:47 Add Manual Diff Complete 05/12/22 04:34 Total Counted 100 05/12/22 04:34 Seg Neutrophils % Multimedia Technician 05/10/22 04:56 Seg Neuts % (Manual) 93.0 % (40.0-70.0) H 05/12/22 04:34 Band Neutrophils % 1.0 % 05/12/22 04:34 Lymphocytes % (Manual) 3.0 % (13.4-35.0) L 05/12/22 04:34 Reactive Lymphs % (Man) 0 % 05/12/22 04:34 Monocytes % (Manual) 2.0 % (0.0-7.3) 05/12/22 04:34 Eosinophils % (Manual) 0 % (0.0-4.3) 05/12/22 04:34 Basophils % (Manual) 0 % (0.0-1.8) 05/12/22 04:34 Metamyelocytes % 1.0 % 05/12/22 04:34 Myelocytes % 0 % 05/12/22 04:34 Promyelocytes % 0 % 05/12/22 04:34 Blast Cells % 0 % 05/12/22 04:34 Nucleated RBC % Not Reportable 05/12/22 04:34 Seg Neutrophils # 6.7 K/mm3 (1.8-7.7) 05/06/22 04:47 Seg Neutrophils # Man 10.7 K/mm3 (1.8-7.7) H 05/12/22 04:34 Band Neutrophils # 0.1 K/mm3 05/12/22 04:34 Lymphocytes # (Manual) 0.3 K/mm3 (1.2-5.4) L 05/12/22 04:34 Abs React Lymphs (Man) 0.0 K/mm3 05/12/22 04:34 Monocytes # (Manual) 0.2 K/mm3 (0.0-0.8) 05/12/22 04:34 Eosinophils # (Manual) 0.0 K/mm3 (0.0-0.4) 05/12/22 04:34 Basophils # (Manual) 0.0 K/mm3 (0.0-0.1) 05/12/22 04:34 Metamyelocytes # 0.1 K/mm3 05/12/22 04:34 Myelocytes # 0.0 K/mm3 05/12/22 04:34 Promyelocytes # 0.0 K/mm3 05/12/22 04:34 Blast Cells # 0.0 K/mm3 05/12/22 04:34 WBC Morphology Not Reportable 05/12/22 04:34 Hypersegmented Neuts Not Reportable 05/12/22 04:34 Hyposegmented Neuts Not Reportable 05/12/22 04:34 Hypogranular Neuts Not Reportable 05/12/22 04:34 Smudge Cells Not Reportable 05/12/22 04:34 Toxic Granulation Not Reportable 05/12/22 04:34 Toxic Vacuolation Not Reportable 05/12/22 04:34 Dohle Bodies Not Reportable 05/12/22 04:34 Pelger-Huet Anomaly Not Reportable 05/12/22 04:34 Maria Del Rosario Rods Not Reportable 05/12/22 04:34 Platelet Estimate Consistent w auto 05/12/22 04:34 Clumped Platelets Not Reportable 05/12/22 04:34 Plt Clumps, EDTA Not Reportable 05/12/22 04:34 Large Platelets Rare 05/12/22 04:34 Giant Platelets Not Reportable 05/12/22 04:34 Platelet Satelliting Not Reportable 05/12/22 04:34 Plt Morphology Comment Not Reportable 05/12/22 04:34 RBC Morphology Not Reportable 05/12/22 04:34 Dimorphic RBCs Not Reportable 05/12/22 04:34 Polychromasia Not Reportable 05/12/22 04:34 Hypochromasia Not Reportable 05/12/22 04:34 Poikilocytosis 1+ 05/12/22 04:34 Anisocytosis 1+ 05/12/22 04:34 Microcytosis 1+ 05/12/22 04:34 Macrocytosis Not Reportable 05/12/22 04:34 Spherocytes Rare 05/12/22 04:34 Pappenheimer Bodies Not Reportable 05/12/22 04:34 Sickle Cells Not Reportable 05/12/22 04:34 Target Cells Not Reportable 05/12/22 04:34 Tear Drop Cells Not Reportable 05/12/22 04:34 Ovalocytes Not Reportable 05/12/22 04:34 Stomatocytes Rare 05/10/22 04:56 Helmet Cells Not Reportable 05/12/22 04:34 [place] Bodies Not Reportable 05/12/22 04:34 [place] Rings Not Reportable 05/12/22 04:34 Dao Cells Not Reportable 05/12/22 04:34 Bite Cells Not Reportable 05/12/22 04:34 Crenated Cell Not Reportable 05/12/22 04:34 Elliptocytes Not Reportable 05/12/22 04:34 Acanthocytes (Spur) Not Reportable 05/12/22 04:34 Rouleaux Not Reportable 05/12/22 04:34 Hemoglobin C Crystals Not Reportable 05/12/22 04:34 Schistocytes Not Reportable 05/12/22 04:34 Malaria parasites Not Reportable 05/12/22 04:34 Isidro Bodies Not Reportable 05/12/22 04:34 Hem Pathologist Commnt No 05/12/22 04:34 D-Dimer 376.26 ng/mlDDU (0-234) H 04/18/22 09:00 Sodium 158 mmol/L (137-145) H 05/12/22 04:34 Potassium 5.3 mmol/L (3.6-5.0) H 05/12/22 04:34 Chloride 113.0 mmol/L (98-107) H 05/12/22 04:34 Carbon Dioxide 40 mmol/L (22-30) H 05/12/22 04:34 Anion Gap 10 mmol/L 05/12/22 04:34 BUN 101 mg/dL (9-20) H 05/12/22 04:34 Creatinine 1.9 mg/dL (0.8-1.3) H 05/12/22 04:34 Estimated GFR 35 ml/min 05/12/22 04:34 BUN/Creatinine Ratio 53 % 05/12/22 04:34 Glucose 184 mg/dL (75-100) H 05/12/22 04:34 POC Glucose 170 mg/dL (70-105) H 05/13/22 16:54 Calcium 11.1 mg/dL (8.4-10.2) H 05/12/22 04:34 Magnesium 2.20 mg/dL (1.7-2.3) 05/03/22 04:53 Ferritin 1407.0 ng/mL (30.0-300.0) H 04/18/22 09:00 Total Bilirubin 0.60 mg/dL (0.1-1.2) 05/03/22 04:53 AST 20 units/L (5-40) 05/03/22 04:53 ALT 26 units/L (7-56) 05/03/22 04:53 Alkaline Phosphatase 103 units/L (35-129) 05/03/22 04:53 Ammonia 14.0 umol/L (25-60) L 04/30/22 14:41 Lactate Dehydrogenase 229 units/L (91-180) H 04/18/22 09:00 C-Reactive Protein 1.10 mg/dL (0.00-1.30) 04/18/22 09:00 Total Protein 6.0 g/dL (6.3-8.2) L 05/03/22 04:53 Albumin 2.5 g/dL (3.9-5) L 05/03/22 04:53 Albumin/Globulin Ratio 0.7 % 05/03/22 04:53 Valproic Acid 31.2 ug/mL (50-100) L 05/09/22 11:01 SARS-CoV-2 (PCR) Negative (Negative) 05/05/22 12:37 Kaufman/IV: Voiding Method Condom Catheter Active Medications - Current Medications Current Medications: Generic Name Dose Route Start Last Admin Trade Name Freq PRN Reason Stop Dose Admin Acetaminophen 650 mg 04/06/22 15:59 05/11/22 22:36 Acetaminophen 325 Mg Tab PO 650 mg Q4H PRN Administration Pain MILD(1-3)/Fever >100.5/MCKENZIE Albuterol 2.5 mg 04/06/22 15:59 05/08/22 16:23 Albuterol 2.5 Mg/3 Ml Nebu IH 2.5 mg Q4HRT PRN Administration Shortness Of Breath Lipase/Protease/Amylase 1 each 04/26/22 18:00 Lipase 10,500/Protease 25,000/Amylase 43,750 (Units) Dr Barrios FEEDTUBE PRN PRN For Clogged Feeding Tube Aspirin 81 mg 04/30/22 17:00 05/13/22 11:46 Aspirin 81 Mg Tab Chew PO 81 mg QDAY KATELYNN Administration Cholecalciferol 1,000 unit 04/07/22 10:00 05/13/22 11:47 Cholecalciferol (Vit D3) 1000 Unit (25 Mcg) Tab PO 1,000 unit QDAY KATELYNN Administration Clonidine HCl 0.3 mg 04/26/22 14:00 05/10/22 14:14 Clonidine Tts 0.3 Mg/24 Hr Patch TD Not Given Tu@1400 [facility] Fluticasone Propionate 50 mcg 04/07/22 10:00 05/13/22 11:48 Fluticasone Propionate Nasal [place] 16 Gm NS 50 mcg QDAY KATELYNN Administration Haloperidol 5 mg 05/03/22 15:00 05/13/22 16:05 Haloperidol 5 Mg Tab PO 5 mg TID KATELYNN Administration Haloperidol Lactate 5 mg 04/30/22 11:29 05/03/22 22:04 Haloperidol Lactate 5 Mg/1 Ml Inj IM 5 mg Q6H PRN Administration Agitation Heparin Sodium (Porcine) 5,000 unit 04/06/22 22:00 05/13/22 11:48 Heparin 5,000 Unit/1 Ml Vial SUB-Q 5,000 unit Q12HR KATELYNN Administration Hydralazine HCl 10 mg 04/22/22 15:07 04/27/22 13:50 Hydralazine 20 Mg/1 Ml Inj IV 10 mg Q4H PRN Administration Hypertension Hydromorphone HCl 0.5 mg 04/26/22 17:59 05/02/22 10:57 Hydromorphone 0.5 Mg/0.5 Ml Inj IV 0.5 mg Q8H PRN Administration Pain , Severe (7-10) Sodium Chloride 250 mls @ 999 mls/hr 05/13/22 19:11 Nacl 0.9% 250ml IV 05/13/22 19:26 ONCE ONE Insulin Human Lispro 0 unit 05/11/22 07:30 05/13/22 18:41 Insulin Lispro 100 Unit/Ml SUB-Q 2 unit Q6HR KATELYNN Administration Protocol Lidocaine HCl 15 ml 05/07/22 14:00 05/13/22 16:06 Magic Mouthwash 30ml PO 15 ml TID KATELYNN Administration Melatonin 5 mg 04/07/22 11:21 04/11/22 23:27 Melatonin 5 Mg Tab PO 5 mg QHS PRN Administration Sleep Mirtazapine 15 mg 04/11/22 22:00 05/12/22 21:00 Mirtazapine 15 Mg Tab PO 15 mg QHS KATELYNN Administration Ondansetron HCl 4 mg 04/06/22 15:59 Ondansetron 4 Mg/2 Ml Inj IV Q8H PRN Nausea And Vomiting Oxycodone/Acetaminophen 1 tab 04/06/22 15:59 05/13/22 11:47 Oxycodone /Acetaminophen 5-325mg Tab PO 1 tab Q16H PRN Administration Pain, Moderate (4-6) Simple Syrup 15 ml 04/26/22 18:00 Simple Syrup 15 Ml FEEDTUBE PRN PRN Hypoglycemia Simple Syrup 30 ml 04/26/22 18:00 Simple Syrup 15 Ml FEEDTUBE PRN PRN Hypoglycemia Sodium Bicarbonate 325 mg 04/26/22 18:00 Sodium Bicarbonate 325 Mg Tab FEEDTUBE PRN PRN For Clogged Feeding Tube Sodium Chloride 10 ml 04/06/22 22:00 05/13/22 11:49 Sodium Chloride 0.9% 10 Ml Flush Syringe IV 10 ml BID KATELYNN Administration Sodium Chloride 10 ml 04/06/22 15:59 04/29/22 20:05 Sodium Chloride 0.9% 10 Ml Flush Syringe IV 10 ml PRN PRN Administration LINE FLUSH Valproic Acid 500 mg 05/05/22 22:00 05/13/22 11:46 Valproic Acid 250 Mg/5 Ml Oral Liqd PO 500 mg BID KATELYNN Administration Nutrition/Malnutrition Assess - Dietary Evaluation Nutrition/Malnutrition Findings: Nutrition Notes Start: 04/07/22 15:47 Freq: Status: Active Protocol: Document 05/11/22 17:15 FARIBA (Rec: 05/11/22 17:30 [email or web address] [id number]) Nutrition Notes Initial or Follow up Brief Note Current Diagnosis Diabetes,Hypertension, Malnutrition Other Pertinent Diagnosis COVID-19, Debility, Dehydration, Metabolic Encephalopathy, Dementia ... Current Diet TF-Glucerna 1.2 Joss @ 55 ml/hr (from B 05/09). Height 5 ft 2 in Weight 39.6 kg [place] Body Weight (kg) 53.63 BMI 16.0 Weight change and time frame Discrepancy of 4.1 Kg body weight loss in 2 days reported Weight Status Underweight Subjective/Other Information RD consult for routine F/U on TF tolerance/continuation. TF tolerance/continuation. TF continues as prescribed, and well tolerated, according to RN notes. RN note on 05/11/22 07:48: Pt alert and lethargic, confused, total care, venturi mask ( 15L), tolerating tube feeding - 55 ml/hr, dressing to sacrum stage 2 wound done, katelynn meds given, resting okay, barrie soft restraints, no acute distress. - END OF NOTE. Pt is on Venturi Mask+, O2 saturation @ 98%, according to Physical Assessment History notes. Percent of energy/protein needs met: Prescribed TF-Glucerna 1.2 Joss @ 55 ml/hr provides for energy/protein needs (1,285 Kcal/64 g) during LOS, 100% Kcal; 119% AA. Is patient on ventilator? No Is Patient Ambulatory and/or Out of Bed No REE-([facility]-confined to bed) 1224.924 Kcal/Kg value to use for calculation 40 Approximate Energy Requirements Using 1584 kcal/Kg Calculation Used for Recommendations Kcal/kg Additional Notes Protein: 1.2-1.5 g/Kg ABW; 52- 66 g/day. Fluids: 1 ml/Kcal, or as per MD. Nutrition Intervention Nutrition Support: Continue TF-Glucerna 1.2 Joss @ 55 ml/hr. Flush: 85 ml water Q 4 hr, or as per MD. Kcal 1,584 Protein (gm) 79 Carbohydrates (gm) 151 Fat (gm) 79 Fluid (mL) 1,063 Fiber (gm) 21 % RDI: 100% Kcal; 119% AA. Goal #1 Provide at least 75% of energy /protein needs through Enteral Feeding during LOS. Follow-Up By: 05/18/22 Additional Comments Continue monitoring TF tolerance and BM.
[2022-05-13] MEDS: MIRTAZAPINE 15 MG TAB PO SCH (21:18)
[2022-05-14] MEDS: INSULIN LISPRO 100 UNIT/ML SUB-Q SCH ×4 (01:01→18:35)
[2022-05-14] MEDS: CHOLECALCIFEROL (VIT D3) 1000 UNIT (25 mcg) TAB PO SCH (10:58)
[2022-05-14] MEDS: MAGIC MOUTHWASH 30ML PO SCH ×3 (10:59→21:03)
[2022-05-14] MEDS: VALPROIC ACID 250 MG/5 ML ORAL LIQD PO SCH ×2 (10:59→21:02)
[2022-05-14] MEDS: HALOPERIDOL 5 MG TAB PO SCH ×2 (10:59→13:17)
[2022-05-14] MEDS: HEPARIN 5,000 UNIT/1 ML VIAL SUB-Q SCH ×2 (10:59→21:03)
[2022-05-14] MEDS: FLUTICASONE PROPIONATE NASAL SPRAY 16 GM NS SCH (11:00)
[2022-05-14] MEDS: ASPIRIN 81 MG TAB CHEW PO SCH (11:10)
[2022-05-14] MEDS: MIRTAZAPINE 15 MG TAB PO SCH (21:03)
[2022-05-15] MEDS: INSULIN LISPRO 100 UNIT/ML SUB-Q SCH ×5 (00:31→23:27)
[2022-05-15] MEDS: ASPIRIN 81 MG TAB CHEW PO SCH (09:46)
[2022-05-15] MEDS: FLUTICASONE PROPIONATE NASAL SPRAY 16 GM NS SCH (09:46)
[2022-05-15] MEDS: HEPARIN 5,000 UNIT/1 ML VIAL SUB-Q SCH ×2 (09:46→21:37)
[2022-05-15] MEDS: VALPROIC ACID 250 MG/5 ML ORAL LIQD PO SCH ×2 (09:46→21:46)
[2022-05-15] MEDS: CHOLECALCIFEROL (VIT D3) 1000 UNIT (25 mcg) TAB PO SCH (09:46)
[2022-05-15] MEDS: MAGIC MOUTHWASH 30ML PO SCH ×3 (09:49→21:47)
--- NOTE | 2022-05-15 10:22 | Progress Note ---
Assessment and Plan Assessment and plan: 76 YO Male PMH with Vascular Dementia with Behavioral disturbance, Cerebral Atherosclerosis, DM, BPH, HTN, Malnutrition, Coronavirus Infection. Patient remains confused, lethargic with diminished cognition. Patient remains at baseline level of cognition and function. Hospice team consulted. Case varun sharma consulted. COVID-19 positive x4 -- COVID-19 positivex4 03/31/2022, 04/13/2022,04/20/22 and, 04/29/2022 Test negative on 05/05/22 s/p isolation precautions and protocols vitamin C therapy, vitamin D therapy, zinc therapy, supplemental oxygen, pulse oximetry, prophylactic anticoagulation. On dexamethasone as intermittently needed O2 Follow-up inflammatory markers, ID consulted: recommended supportive care --hypertensionadded clonidine patch --aspiration pneumonia, continue empiric antibiotics, follow clinically Chest x-ray, worsening infiltrates, DC planning home hospice versus hospice facility However no family to give consent --Vascular dementia with behavioral disturbance Verbal prompting, verbal redirection, benzodiazepine therapy as clinically indicated. --Cerebral atherosclerosis Risk factor reduction, antiplatelet therapy, supportive care. --General debility Bed alarm, fall precautions, supportive care. Physical therapy occupational therapy -- Mild to moderate malnutrition Increase protein intake, dietary supplementation when awake and alert only. Aspiration precautions. --Nicotine dependence Smoking cessation counseled, supportive care, behavior change counseled, pulse 50 minutes. --Volume depletion/dehydration IV fluids and supportive care, increase oral fluids --Metabolic encephalopathy Multifactorial , underlying dementia , malnutrition , advanced age COVID-19 infection , psych problems Treat underlying cause and supportive care --DVT prophylaxis SCD to bilateral extremities while in bed, prophylactic anticoagulation --Advance care planning patient is full code at this time. Discussed patient care with Quynhheather Britt, . The plan is to make patient DNR and [facility]. Awaiting arrival of Ms. Britt to the hospital for family conference. According to CM no family has been reported. We will closely monitor the patient and adjust the management as needed Plan of care reviewed with the patient's nurse DC planning per case management Disposition; continue current management, DC planning per case management and family Brief history and daily Hospital course: 76 YO Male PMH with Vascular Dementia with Behavioral disturbance, Cerebral Atherosclerosis, DM, BPH, HTN, Malnutrition, Coronavirus Infection. Patient remains confused, lethargic with diminished cognition. Patient remains at baseline level of cognition and function. Hospice team consulted. Case management consulted. COVID-19 positive x4 04/13/2022; patient is lethargic sleepy, restraint for safety Continue current management, psych evaluation noted and appreciated 04/14/2022; patient is more alert today trying to pull , agitated On restraints, refusing to eat, consider Dobbhoff placement for tube feeding if needed 04/15/2022; COVID-19 positive[ 03/31 and 04/13] Check inflammatory markers, ID consulted Patient is refusing medications and diet Confused and agitated, Dobbhoff placement and tube feeding per protocol 04/16/2022; patient is more alert and awake Tolerating liquids, will advance the diet as tolerated Check physical therapy occupational therapy evaluation and recommendations DC planning per case management 04/17/2022; patient is on pured diet, Will advance the diet as tolerated 04/18/2022; recommend hospice, try to call next of kin the daughter many times Unable to reach, hospice consult inpatient versus home hospice versus SNF with hospice 04/19: Patient remains on restraint and confused. He is on 2 L nasal cannula O2. We will start on dexamethasone for 10 days. We will also Low-dose of Seroquel for agitation and anxiety. Continue to follow clinically, waiting on SNF placement 04/20: Cont seroquel, restraint as needed. follow clinically. still positive for Covid, cont dexamethasone, pending placement. No family info in the file. 04/21: remains restraint, patient o RA today, does not follow commend, added clonidine path for HTN, stopped iv fluid.follow clinically. 04/22: Patient remains in restraints. Patient currently on room air with saturations at 96%. Patient remains confused and does not follow commands. Blood pressure much better controlled. Continue current regimen. Please review case management notes from 04/20. Caregiver currently unable to accept the patient at home until they find a place that can meet his needs. 04/23: Patient remains confused. Continue current regimen. Awaiting placement. 04/24: Continue dexamethasone and supplemental O2. Patient currently requiring 4 L O2 with saturations of 99%. Patient remains confused. Psychiatry recommends valproic acid, Remeron and Seroquel. Case management reports patient has not received any acceptances to [facility]. Patient previously lived alone in an RV. At this time, patient is unable to live alone and caregiver is unable to care for the patient until they find a place that can meet his needs. 04/25: Continue dexamethasone and supplemental O2. Patient remains on 4 L O2 with saturations of 99%. Patient remains confused and does not follow commands. Patient still requiring restraints. Psychiatry recommends valproic acid, Remeron and Seroquel. Case management reports patient has not received any acceptances to [facility]. Patient previously lived alone in an RV. At this time, patient is unable to live alone and caregiver is unable to care for the patient until they find a place that can meet his needs. ; pending placement, continue current management Place Dobbhoff feeding tube, nutrition consult for tube feeding Monitor closely and adjust the management as needed 04/27; patient is receiving Dobbhoff feeds, check speech therapy for swallow evaluation If abnormal consider PEG placement, will try to contact family Daughter Lorenza Beauchamp To discuss the goals of treatment and discharge planning Pending [facility] with hospice. Hypernatremia Free water via Dobbhoff 04/28/2022; speech evaluated the patient, patient is unable to follow swallow eval Patient needs PEG placement, however no family available to give consent Case management to assist with dressing any family, if not available will check with the ethics committee For assistance. Difficult to discharge/placement as patient has no next of kin available. 04/29/2022; crooks PCR test third time today's positive. Continue tube feeding, DC planning, no family or contact available 04/30/22; patient pulled out Dobbhoff tube last night We will replace Dobbhoff tube start feeding as tolerated Still do not have any contact with the family members 05/01/2022; continue Dobbhoff feeds, restraints for safety DC planning[difficult to place due to social/no family reasons] 05/02/2022; restraints for safety, Dobbhoff feeds, awaiting placement Multiple social issues, no family available, COVID-19 x4 05/03/2022: Remains restrained, chest x-ray last night suggestive for Infiltrate versus atelectasis. Antibiotic started for possible aspiration pneumonia. Pending placement, continue to follow 05/04/22: -- Changed antibiotic to Augmentin, continue to follow clinically, pending placement 05/05/22; Valproic level 131. Decreased Depakote 500mg po BID, cont to follow, pending placement. COVID test came is negative today. 05/06/22: Patient off isolation today, continue tube feeding. Pending placement. Patient is chronic metabolic encephalopathy with agitation requiring restraint and scheduled Haldol, 22/05 total care, tube feeding dependent, high risk for aspiration, unable to follow any commands, with extremely poor prognosis. Jason chery need hospice care. But no family member found to sign up for hospice. Continue to follow clinically with supportive care. 05/07/22: Continue to follow clinically with supportive care. pending placement. no family member found so far. 05/08/22; pending placement, cont supportive care. severe dementia, with 22/05 care. 05/09/22: patient on 10L o2 today, possible aspiration, repeat cxr, pending placement, no family member found so far. 05/10/2022; patient clinically no change, chest x-ray worsening infiltrates Continue supportive care oxygen titrate O2 sats to more than 90%, restraint for safety, continue tube feeding Consider hospice 05/11; discharge planning awaiting hospice evaluation . 05/12; pending hospice placement, multiple social issues No family available 05/13; patient continues to be noncommunicative, on Dobbhoff feeds Awaiting placement, social issues 05/14/clinically no change, patient is nonresponsive, sedated with psych medications Restraints for safety, Dobbhoff feeds, awaiting hospice placement 05/15; patient clinically remains same Unresponsive noncommunicative restraint for safety and agitation receiving Dobbhoff feeds Case management assisting to contact family (, assisting with hospice placement Patient is ready for discharge to hospice when hospice is willing to take the patient History Interval history: Seen and examined the patient at bedside Patient's chart and medications reviewed Patient is noncommunicative not opening eyes Restraint for safety Dobbhoff feeds Clinically no change Vital signs noted Hospitalist Physical - Constitutional Vitals: Temp Pulse Resp BP Pulse Ox 98.6 F 102 H 24 121/67 99 05/15/22 04:55 05/15/22 08:00 05/15/22 04:55 05/15/22 08:00 05/15/22 08:38 General appearance: Present: no acute distress, cachectic, disheveled, other (Lethargic sleeping, noncommunicative) - EENT Eyes: Present: PERRL, EOM intact - Neck Neck: Present: supple, normal ROM - Respiratory Respiratory effort: normal Respiratory: bilateral: diminished, negative: rales, rhonchi, wheezing - Cardiovascular Rhythm: regular Heart Sounds: Present: S1 & S2 - Extremities Extremities: no ischemia, No edema - Abdominal General gastrointestinal: soft, non-tender, non-distended - Integumentary Integumentary: Present: clear - Psychiatric Psychiatric: other (Noncommunicative) - Neurologic Neurologic: other (Noncommunicative) Results - Labs CBC & Chem 7: 05/12/22 04:34 05/12/22 04:34 Labs: Laboratory Last Values WBC 11.5 K/mm3 (4.5-11.0) H 05/12/22 04:34 RBC 3.23 M/mm3 (3.65-5.03) L 05/12/22 04:34 Hgb 10.2 gm/dl (11.8-15.2) L 05/12/22 04:34 Hct 30.8 % (35.5-45.6) L 05/12/22 04:34 MCV 96 fl (84-94) H 05/12/22 04:34 MCH 32 pg (28-32) 05/12/22 04:34 MCHC 33 % (32-34) 05/12/22 04:34 RDW 13.7 % (13.2-15.2) 05/12/22 04:34 Plt Count 267 K/mm3 (140-440) 05/12/22 04:34 Lymph % (Auto) 9.9 % (13.4-35.0) L 05/06/22 04:47 [place] % (Auto) 13.6 % (0.0-7.3) H 05/06/22 04:47 Eos % (Auto) 0.2 % (0.0-4.3) 05/06/22 04:47 Baso % (Auto) 0.4 % (0.0-1.8) 05/06/22 04:47 Lymph # (Auto) 0.9 K/mm3 (1.2-5.4) L 05/06/22 04:47 [place] # (Auto) 1.2 K/mm3 (0.0-0.8) H 05/06/22 04:47 Eos # (Auto) 0.0 K/mm3 (0.0-0.4) 05/06/22 04:47 Baso # (Auto) 0.0 K/mm3 (0.0-0.1) 05/06/22 04:47 Add Manual Diff Complete 05/12/22 04:34 Total Counted 100 05/12/22 04:34 Seg Neutrophils % Video Control Engineer 05/10/22 04:56 Seg Neuts % (Manual) 93.0 % (40.0-70.0) H 05/12/22 04:34 Band Neutrophils % 1.0 % 05/12/22 04:34 Lymphocytes % (Manual) 3.0 % (13.4-35.0) L 05/12/22 04:34 Reactive Lymphs % (Man) 0 % 05/12/22 04:34 Monocytes % (Manual) 2.0 % (0.0-7.3) 05/12/22 04:34 Eosinophils % (Manual) 0 % (0.0-4.3) 05/12/22 04:34 Basophils % (Manual) 0 % (0.0-1.8) 05/12/22 04:34 Metamyelocytes % 1.0 % 05/12/22 04:34 Myelocytes % 0 % 05/12/22 04:34 Promyelocytes % 0 % 05/12/22 04:34 Blast Cells % 0 % 05/12/22 04:34 Nucleated RBC % Not Reportable 05/12/22 04:34 Seg Neutrophils # 6.7 K/mm3 (1.8-7.7) 05/06/22 04:47 Seg Neutrophils # Man 10.7 K/mm3 (1.8-7.7) H 05/12/22 04:34 Band Neutrophils # 0.1 K/mm3 05/12/22 04:34 Lymphocytes # (Manual) 0.3 K/mm3 (1.2-5.4) L 05/12/22 04:34 Abs React Lymphs (Man) 0.0 K/mm3 05/12/22 04:34 Monocytes # (Manual) 0.2 K/mm3 (0.0-0.8) 05/12/22 04:34 Eosinophils # (Manual) 0.0 K/mm3 (0.0-0.4) 05/12/22 04:34 Basophils # (Manual) 0.0 K/mm3 (0.0-0.1) 05/12/22 04:34 Metamyelocytes # 0.1 K/mm3 05/12/22 04:34 Myelocytes # 0.0 K/mm3 05/12/22 04:34 Promyelocytes # 0.0 K/mm3 05/12/22 04:34 Blast Cells # 0.0 K/mm3 05/12/22 04:34 WBC Morphology Not Reportable 05/12/22 04:34 Hypersegmented Neuts Not Reportable 05/12/22 04:34 Hyposegmented Neuts Not Reportable 05/12/22 04:34 Hypogranular Neuts Not Reportable 05/12/22 04:34 Smudge Cells Not Reportable 05/12/22 04:34 Toxic Granulation Not Reportable 05/12/22 04:34 Toxic Vacuolation Not Reportable 05/12/22 04:34 Dohle Bodies Not Reportable 05/12/22 04:34 Pelger-Huet Anomaly Not Reportable 05/12/22 04:34 Maria Del Rosario Rods Not Reportable 05/12/22 04:34 Platelet Estimate Consistent w auto 05/12/22 04:34 Clumped Platelets Not Reportable 05/12/22 04:34 Plt Clumps, EDTA Not Reportable 05/12/22 04:34 Large Platelets Rare 05/12/22 04:34 Giant Platelets Not Reportable 05/12/22 04:34 Platelet Satelliting Not Reportable 05/12/22 04:34 Plt Morphology Comment Not Reportable 05/12/22 04:34 RBC Morphology Not Reportable 05/12/22 04:34 Dimorphic RBCs Not Reportable 05/12/22 04:34 Polychromasia Not Reportable 05/12/22 04:34 Hypochromasia Not Reportable 05/12/22 04:34 Poikilocytosis 1+ 05/12/22 04:34 Anisocytosis 1+ 05/12/22 04:34 Microcytosis 1+ 05/12/22 04:34 Macrocytosis Not Reportable 05/12/22 04:34 Spherocytes Rare 05/12/22 04:34 Pappenheimer Bodies Not Reportable 05/12/22 04:34 Sickle Cells Not Reportable 05/12/22 04:34 Target Cells Not Reportable 05/12/22 04:34 Tear Drop Cells Not Reportable 05/12/22 04:34 Ovalocytes Not Reportable 05/12/22 04:34 Stomatocytes Rare 05/10/22 04:56 Helmet Cells Not Reportable 05/12/22 04:34 [place] Bodies Not Reportable 05/12/22 04:34 [place] Rings Not Reportable 05/12/22 04:34 Syl[place] Cells Not Reportable 05/12/22 04:34 Bite Cells Not Reportable 05/12/22 04:34 Crenated Cell Not Reportable 05/12/22 04:34 Elliptocytes Not Reportable 05/12/22 04:34 Acanthocytes (Spur) Not Reportable 05/12/22 04:34 Rouleaux Not Reportable 05/12/22 04:34 Hemoglobin C Crystals Not Reportable 05/12/22 04:34 Schistocytes Not Reportable 05/12/22 04:34 Malaria parasites Not Reportable 05/12/22 04:34 Isidro Bodies Not Reportable 05/12/22 04:34 Hem Pathologist Commnt No 05/12/22 04:34 D-Dimer 376.26 ng/mlDDU (0-234) H 04/18/22 09:00 Sodium 158 mmol/L (137-145) H 05/12/22 04:34 Potassium 5.3 mmol/L (3.6-5.0) H 05/12/22 04:34 Chloride 113.0 mmol/L (98-107) H 05/12/22 04:34 Carbon Dioxide 40 mmol/L (22-30) H 05/12/22 04:34 Anion Gap 10 mmol/L 05/12/22 04:34 BUN 101 mg/dL (9-20) H 05/12/22 04:34 Creatinine 1.9 mg/dL (0.8-1.3) H 05/12/22 04:34 Estimated GFR 35 ml/min 05/12/22 04:34 BUN/Creatinine Ratio 53 % 05/12/22 04:34 Glucose 184 mg/dL (75-100) H 05/12/22 04:34 POC Glucose 149 mg/dL (70-105) H 05/15/22 05:24 Calcium 11.1 mg/dL (8.4-10.2) H 05/12/22 04:34 Magnesium 2.20 mg/dL (1.7-2.3) 05/03/22 04:53 Ferritin 1407.0 ng/mL (30.0-300.0) H 04/18/22 09:00 Total Bilirubin 0.60 mg/dL (0.1-1.2) 05/03/22 04:53 AST 20 units/L (5-40) 05/03/22 04:53 ALT 26 units/L (7-56) 05/03/22 04:53 Alkaline Phosphatase 103 units/L (35-129) 05/03/22 04:53 Ammonia 14.0 umol/L (25-60) L 04/30/22 14:41 Lactate Dehydrogenase 229 units/L (91-180) H 04/18/22 09:00 C-Reactive Protein 1.10 mg/dL (0.00-1.30) 04/18/22 09:00 Total Protein 6.0 g/dL (6.3-8.2) L 05/03/22 04:53 Albumin 2.5 g/dL (3.9-5) L 05/03/22 04:53 Albumin/Globulin Ratio 0.7 % 05/03/22 04:53 Valproic Acid 31.2 ug/mL (50-100) L 05/09/22 11:01 SARS-CoV-2 (PCR) Negative (Negative) 05/05/22 12:37 Kaufman/IV: Voiding Method Condom Catheter Active Medications - Current Medications Current Medications: Generic Name Dose Route Start Last Admin Trade Name Freq PRN Reason Stop Dose Admin Acetaminophen 650 mg 04/06/22 15:59 05/11/22 22:36 Acetaminophen 325 Mg Tab PO 650 mg Q4H PRN Administration Pain MILD(1-3)/Fever >100.5/MCKENZIE Albuterol 2.5 mg 04/06/22 15:59 05/08/22 16:23 Albuterol 2.5 Mg/3 Ml Nebu IH 2.5 mg Q4HRT PRN Administration Shortness Of Breath Lipase/Protease/Amylase 1 each 04/26/22 18:00 Lipase 10,500/Protease 25,000/Amylase 43,750 (Units) Dr Cap FEEDTUBE PRN PRN For Clogged Feeding Tube Aspirin 81 mg 04/30/22 17:00 05/15/22 09:46 Aspirin 81 Mg Tab Chew PO 81 mg QDAY KATELYNN Administration Cholecalciferol 1,000 unit 04/07/22 10:00 05/15/22 09:46 Cholecalciferol (Vit D3) 1000 Unit (25 Mcg) Tab PO 1,000 unit QDAY KATELYNN Administration Clonidine HCl 0.3 mg 04/26/22 14:00 05/10/22 14:14 Clonidine Tts 0.3 Mg/24 Hr Patch TD Not Given Tu@1400 KATELYNN Fluticasone Propionate 50 mcg 04/07/22 10:00 05/15/22 09:46 Fluticasone Propionate Nasal [place] 16 Gm NS 50 mcg QDAY KATELYNN Administration Haloperidol Lactate 5 mg 04/30/22 11:29 05/03/22 22:04 Haloperidol Lactate 5 Mg/1 Ml Inj IM 5 mg Q6H PRN Administration Agitation Heparin Sodium (Porcine) 5,000 unit 04/06/22 22:00 05/15/22 09:46 Heparin 5,000 Unit/1 Ml Vial SUB-Q 5,000 unit Q12HR KATELYNN Administration Hydralazine HCl 10 mg 04/22/22 15:07 04/27/22 13:50 Hydralazine 20 Mg/1 Ml Inj IV 10 mg Q4H PRN Administration Hypertension Hydromorphone HCl 0.5 mg 04/26/22 17:59 05/02/22 10:57 Hydromorphone 0.5 Mg/0.5 Ml Inj IV 0.5 mg Q8H PRN Administration Pain , Severe (7-10) Insulin Human Lispro 0 unit 05/11/22 07:30 05/15/22 05:37 Insulin Lispro 100 Unit/Ml SUB-Q Not Given Q6HR [facility] Protocol Lidocaine HCl 15 ml 05/07/22 14:00 05/15/22 09:49 Magic Mouthwash 30ml PO 15 ml TID KATELYNN Administration Melatonin 5 mg 04/07/22 11:21 04/11/22 23:27 Melatonin 5 Mg Tab PO 5 mg QHS PRN Administration Sleep Mirtazapine 15 mg 04/11/22 22:00 05/14/22 21:03 Mirtazapine 15 Mg Tab PO 15 mg QHS KATELYNN Administration Ondansetron HCl 4 mg 04/06/22 15:59 Ondansetron 4 Mg/2 Ml Inj IV Q8H PRN Nausea And Vomiting Oxycodone/Acetaminophen 1 tab 04/06/22 15:59 05/13/22 11:47 Oxycodone /Acetaminophen 5-325mg Tab PO 1 tab Q16H PRN Administration Pain, Moderate (4-6) Simple Syrup 15 ml 04/26/22 18:00 Simple Syrup 15 Ml FEEDTUBE PRN PRN Hypoglycemia Simple Syrup 30 ml 04/26/22 18:00 Simple Syrup 15 Ml FEEDTUBE PRN PRN Hypoglycemia Sodium Bicarbonate 325 mg 04/26/22 18:00 Sodium Bicarbonate 325 Mg Tab FEEDTUBE PRN PRN For Clogged Feeding Tube Sodium Chloride 10 ml 04/06/22 22:00 05/15/22 09:47 Sodium Chloride 0.9% 10 Ml Flush Syringe IV 10 ml BID KATELYNN Administration Sodium Chloride 10 ml 04/06/22 15:59 04/29/22 20:05 Sodium Chloride 0.9% 10 Ml Flush Syringe IV 10 ml PRN PRN Administration LINE FLUSH Valproic Acid 500 mg 05/05/22 22:00 05/15/22 09:46 Valproic Acid 250 Mg/5 Ml Oral Liqd PO 500 mg BID KATELYNN Administration Nutrition/Malnutrition Assess - Dietary Evaluation Nutrition/Malnutrition Findings: Nutrition Notes Start: 04/07/22 15:47 Freq: Status: Active Protocol: Document 05/11/22 17:15 FARIBA (Rec: 05/11/22 17:30 FARIBA [email or web address]) Nutrition Notes Initial or Follow up Brief Note Current Diagnosis Diabetes,Hypertension, Malnutrition Other Pertinent Diagnosis COVID-19, Debility, Dehydration, Metabolic Encephalopathy, Dementia ... Current Diet TF-Glucerna 1.2 Joss @ 55 ml/hr (from B 05/09). Height 5 ft 2 in Weight 39.6 kg [place] Body Weight (kg) 53.63 BMI 16.0 Weight change and time frame Discrepancy of 4.1 Kg body weight loss in 2 days reported Weight Status Underweight Subjective/Other Information RD consult for routine F/U on TF tolerance/continuation. TF tolerance/continuation. TF continues as prescribed, and well tolerated, according to RN notes. RN note on 05/11/22 07:48: Pt alert and lethargic, confused, total care, venturi mask ( 15L), tolerating tube feeding - 55 ml/hr, dressing to sacrum stage 2 wound done, katelynn meds given, resting okay, barrie soft restraints, no acute distress. - END OF NOTE. Pt is on Venturi Mask+, O2 saturation @ 98%, according to Physical Assessment History notes. Percent of energy/protein needs met: Prescribed TF-Glucerna 1.2 Joss @ 55 ml/hr provides for energy/protein needs (1,285 Kcal/64 g) during LOS, 100% Kcal; 119% AA. Is patient on ventilator? No Is Patient Ambulatory and/or Out of Bed No REE-([facility]-confined to bed) 1224.924 Kcal/Kg value to use for calculation 40 Approximate Energy Requirements Using 1584 kcal/Kg Calculation Used for Recommendations Kcal/kg Additional Notes Protein: 1.2-1.5 g/Kg ABW; 52- 66 g/day. Fluids: 1 ml/Kcal, or as per MD. Nutrition Intervention Nutrition Support: Continue TF-Glucerna 1.2 Joss @ 55 ml/hr. Flush: 85 ml water Q 4 hr, or as per MD. Kcal 1,584 Protein (gm) 79 Carbohydrates (gm) 151 Fat (gm) 79 Fluid (mL) 1,063 Fiber (gm) 21 % RDI: 100% Kcal; 119% AA. Goal #1 Provide at least 75% of energy /protein needs through Enteral Feeding during LOS. Follow-Up By: 05/18/22 Additional Comments Continue monitoring TF tolerance and BM.
[2022-05-15] MEDS: MIRTAZAPINE 15 MG TAB PO SCH (21:37)
[2022-05-15] MEDS: ACETAMINOPHEN 325 MG TAB PO PRN (21:46)
[2022-05-16 05:38] LABS: Albumin 1.3 g/dL (3.9-5)
[2022-05-16 05:55] LABS: Hematocrit 37.5 % (35.5-45.6); Hemoglobin 11.9 gm/dl (11.8-15.2); Mean Corpuscular HGB Conc 32 % (32-34); Mean Corpuscular Volume 99 fl (84-94); Platelet Count 105 K/mm3 (140-440); Red Blood Count 3.79 M/mm3 (3.65-5.03); Red Cell Distribution Width 14.6 % (13.2-15.2)
[2022-05-16] MEDS: INSULIN LISPRO 100 UNIT/ML SUB-Q SCH ×4 (06:27→23:42)
[2022-05-16 08:48] LABS: Eosinophils % (Manual) 0 % (0.0-4.3); Total Cells Counted 100
[2022-05-16 08:49] LABS: Platelet Estimate Consistent w Auto; Poikilocytosis Few
[2022-05-16] MEDS: MAGIC MOUTHWASH 30ML PO SCH ×3 (09:13→22:13)
[2022-05-16] MEDS: VALPROIC ACID 250 MG/5 ML ORAL LIQD PO SCH ×2 (09:13→22:58)
[2022-05-16] MEDS: HEPARIN 5,000 UNIT/1 ML VIAL SUB-Q SCH ×2 (09:13→22:59)
[2022-05-16] MEDS: ASPIRIN 81 MG TAB CHEW PO SCH (09:16)
[2022-05-16] MEDS: CHOLECALCIFEROL (VIT D3) 1000 UNIT (25 mcg) TAB PO SCH (09:16)
[2022-05-16] MEDS: FLUTICASONE PROPIONATE NASAL SPRAY 16 GM NS SCH (09:17)
--- NOTE | 2022-05-16 16:58 | Progress Note ---
Assessment and Plan Assessment and plan: 76 YO Male H with Vascular Dementia with Behavioral disturbance, Cerebral Atherosclerosis, DM, BPH, HTN, Malnutrition, Coronavirus Infection. Patient remains confused, lethargic with diminished cognition. Patient remains at baseline level of cognition and function. Hospice team consulted. Case varun sharma consulted. COVID-19 positive x4 last test was negative on 05/05/2022, patient had pneumonia completed antibiotics, vascular dementia General debility. Acute kidney injury, hypernatremia, being managed symptomatically, on Dobbhoff feeds, unable to get PEG due to lack of family to give consent. Meanwhile case management is assisting with discharge planning, inpatient hospice is willing to take the patient pending authorization and approval Psych following medications being managed optimized to treat his metabolic encephalopathy. Assessment; -- COVID-19 positivex4 03/31, 04/13,04/20 and, 04/29/2022 COVID test negative on 05/05/22 s/p isolation precautions and protocols vitamin C therapy, vitamin D therapy, zinc therapy, supplemental oxygen, pulse oximetry, prophylactic anticoagulation. On dexamethasone as intermittently needed O2 Follow-up inflammatory markers, ID consulted: recommended supportive care --hypertensionadded clonidine patch --aspiration pneumonia, continue empiric antibiotics, follow clinically Chest x-ray, worsening infiltrates, DC planning home hospice versus hospice facility However no family to give consent --Vascular dementia with behavioral disturbance Verbal prompting, verbal redirection, benzodiazepine therapy as clinically indicated. --Cerebral atherosclerosis Risk factor reduction, antiplatelet therapy, supportive care. --General debility Bed alarm, fall precautions, supportive care. Physical therapy occupational therapy -- Mild to moderate malnutrition Increase protein intake, dietary supplementation when awake and alert only. Aspiration precautions. --Nicotine dependence Smoking cessation counseled, supportive care, behavior change counseled, pulse 50 minutes. --Volume depletion/dehydration IV fluids and supportive care, increase oral fluids --Metabolic encephalopathy Multifactorial , underlying dementia , malnutrition , advanced age COVID-19 infection , psych problems Treat underlying cause and supportive care --DVT prophylaxis SCD to bilateral extremities while in bed, prophylactic anticoagulation --Advance care planning patient is full code at this time. Discussed patient care with Quynh Britt, . The plan is to make patient DNR and plan for discharge to residential facility with hospice care. Awaiting arrival of Ms. rBitt to the hospital for family conference. According to CM no family has been reported. We will closely monitor the patient and adjust the management as needed Plan of care reviewed with the patient's nurse DC planning per case management Disposition; continue current management, DC planning per case management and family Brief history and daily Hospital course: 76 YO Male PMH with Vascular Dementia with Behavioral disturbance, Cerebral Atherosclerosis, DM, BPH, HTN, Malnutrition, Coronavirus Infection. Patient remains confused, lethargic with diminished cognition. Patient remains at baseline level of cognition and function. Hospice team consulted. Case management consulted. COVID-19 positive x4 04/13/2022; patient is lethargic sleepy, restraint for safety Continue current management, psych evaluation noted and appreciated 04/14/2022; patient is more alert today trying to pull , agitated On restraints, refusing to eat, consider Dobbhoff placement for tube feeding if needed 04/15/2022; COVID-19 positive[ 03/31 and 04/13] Check inflammatory markers, ID consulted Patient is refusing medications and diet Confused and agitated, Dobbhoff placement and tube feeding per protocol 04/16/2022; patient is more alert and awake Tolerating liquids, will advance the diet as tolerated Check physical therapy occupational therapy evaluation and recommendations DC planning per case management 04/17/2022; patient is on pured diet, Will advance the diet as tolerated 04/18/2022; recommend hospice, try to call next of kin the daughter many times Unable to reach, hospice consult inpatient versus home hospice versus SNF with hospice 04/19: Patient remains on restraint and confused. He is on 2 L nasal cannula O2. We will start on dexamethasone for 10 days. We will also Low-dose of Seroquel for agitation and anxiety. Continue to follow clinically, waiting on SNF placement 04/20: Cont seroquel, restraint as needed. follow clinically. still positive for Covid, cont dexamethasone, pending placement. No family info in the file. 04/21: remains restraint, patient o RA today, does not follow commend, added clonidine path for HTN, stopped iv fluid.follow clinically. 04/22: Patient remains in restraints. Patient currently on room air with saturations at 96%. Patient remains confused and does not follow commands. Blood pressure much better controlled. Continue current regimen. Please review case management notes from 04/20. Caregiver currently unable to accept the patient at home until they find a place that can meet his needs. 04/23: Patient remains confused. Continue current regimen. Awaiting placement. 04/24: Continue dexamethasone and supplemental O2. Patient currently requiring 4 L O2 with saturations of 99%. Patient remains confused. Psychiatry recommends valproic acid, Remeron and Seroquel. Case management reports patient has not received any acceptances to [facility]. Patient previously lived alone in an RV. At this time, patient is unable to live alone and caregiver is unable to care for the patient until they find a place that can meet his needs. 04/25: Continue dexamethasone and supplemental O2. Patient remains on 4 L O2 with saturations of 99%. Patient remains confused and does not follow commands. Patient still requiring restraints. Psychiatry recommends valproic acid, Remeron and Seroquel. Case management reports patient has not received any acceptances to [facility]. Patient previously lived alone in an RV. At this time, patient is unable to live alone and caregiver is unable to care for the patient until they find a place that can meet his needs. ; pending placement, continue current management Place Dobbhoff feeding tube, nutrition consult for tube feeding Monitor closely and adjust the management as needed 04/27; patient is receiving Dobbhoff feeds, check speech therapy for swallow evaluation If abnormal consider PEG placement, will try to contact family Daughter Lorenza Beauchamp To discuss the goals of treatment and discharge planning Pending [facility] with hospice. Hypernatremia Free water via Dobbhoff 04/28/2022; speech evaluated the patient, patient is unable to follow swallow eval Patient needs PEG placement, however no family available to give consent Case management to assist with dressing any family, if not available will check with the ethics committee For assistance. Difficult to discharge/placement as patient has no next of kin available. 04/29/2022; crooks PCR test third time today's positive. Continue tube feeding, DC planning, no family or contact available 04/30/22; patient pulled out Dobbhoff tube last night We will replace Dobbhoff tube start feeding as tolerated Still do not have any contact with the family members 05/01/2022; continue Dobbhoff feeds, restraints for safety DC planning[difficult to place due to social/no family reasons] 05/02/2022; restraints for safety, Dobbhoff feeds, awaiting placement Multiple social issues, no family available, COVID-19 x4 05/03/2022: Remains restrained, chest x-ray last night suggestive for Infiltrate versus atelectasis. Antibiotic started for possible aspiration pneumonia. Pending placement, continue to follow 05/04/22: -- Changed antibiotic to Augmentin, continue to follow clinically, pending placement 05/05/22; Valproic level 131. Decreased Depakote 500mg po BID, cont to follow, pending placement. COVID test came is negative today. 05/06/22: Patient off isolation today, continue tube feeding. Pending placement. Patient is chronic metabolic encephalopathy with agitation requiring restraint and scheduled Haldol, 22/05 total care, tube feeding dependent, high risk for aspiration, unable to follow any commands, with extremely poor prognosis. Patient need hospice care. But no family member found to sign up for hospice. Continue to follow clinically with supportive care. 05/07/22: Continue to follow clinically with supportive care. pending placement. no family member found so far. 05/08/22; pending placement, cont supportive care. severe dementia, with 22/05 care. 05/09/22: patient on 10L o2 today, possible aspiration, repeat cxr, pending placement, no family member found so far. 05/10/2022; patient clinically no change, chest x-ray worsening infiltrates Continue supportive care oxygen titrate O2 sats to more than 90%, restraint for safety, continue tube feeding Consider hospice 05/11; discharge planning awaiting hospice evaluation . 05/12; pending hospice placement, multiple social issues No family available 05/13; patient continues to be noncommunicative, on Dobbhoff feeds Awaiting placement, social issues 05/14/clinically no change, patient is nonresponsive, sedated with psych medications Restraints for safety, Dobbhoff feeds, awaiting hospice placement 05/15; patient clinically remains same Unresponsive noncommunicative restraint for safety and agitation receiving Dobbhoff feeds Case management assisting to contact family (, assisting with hospice placement Patient is ready for discharge to hospice when hospice is willing to take the patient 05/16; hospice is evaluating the patient for possible inpatient hospice placement Case management assisting with discharge planning History Interval history: I have seen and examined the patient at the bedside Patient remains critically same Noncommunicative not responding to verbal communication Restrain for safety, On Dobbhoff feeds Vital signs noted Hospitalist Physical - Constitutional Vitals: Temp Pulse Resp BP Pulse Ox 98.2 F 74 16 115/62 100 05/16/22 09:31 05/16/22 09:31 05/16/22 09:31 05/16/22 09:31 05/16/22 10:10 General appearance: Present: no acute distress, cachectic, disheveled, other (Lethargic sleeping, noncommunicative) - EENT Eyes: Present: PERRL, EOM intact - Neck Neck: Present: supple, normal ROM - Respiratory Respiratory effort: normal Respiratory: bilateral: diminished, negative: rales, rhonchi, wheezing - Cardiovascular Rhythm: regular Heart Sounds: Present: S1 & S2 - Extremities Extremities: no ischemia, No edema - Abdominal General gastrointestinal: soft, non-tender, non-distended, normal bowel sounds - Integumentary Integumentary: Present: clear, warm - Psychiatric Psychiatric: other (Noncommunicative) - Neurologic Neurologic: other (Noncommunicative bedbound) Results - Labs CBC & Chem 7: 05/16/22 04:52 05/16/22 04:52 Labs: Laboratory Last Values WBC 16.4 K/mm3 (4.5-11.0) H 05/16/22 04:52 RBC 3.79 M/mm3 (3.65-5.03) 05/16/22 04:52 Hgb 11.9 gm/dl (11.8-15.2) 05/16/22 04:52 Hct 37.5 % (35.5-45.6) 05/16/22 04:52 MCV 99 fl (84-94) H 05/16/22 04:52 MCH 31 pg (28-32) 05/16/22 04:52 MCHC 32 % (32-34) 05/16/22 04:52 RDW 14.6 % (13.2-15.2) 05/16/22 04:52 Plt Count 105 K/mm3 (140-440) L 05/16/22 04:52 Lymph % (Auto) 9.9 % (13.4-35.0) L 05/06/22 04:47 [place] % (Auto) 13.6 % (0.0-7.3) H 05/06/22 04:47 Eos % (Auto) 0.2 % (0.0-4.3) 05/06/22 04:47 Baso % (Auto) 0.4 % (0.0-1.8) 05/06/22 04:47 Lymph # (Auto) 0.9 K/mm3 (1.2-5.4) L 05/06/22 04:47 [place] # (Auto) 1.2 K/mm3 (0.0-0.8) H 05/06/22 04:47 Eos # (Auto) 0.0 K/mm3 (0.0-0.4) 05/06/22 04:47 Baso # (Auto) 0.0 K/mm3 (0.0-0.1) 05/06/22 04:47 Add Manual Diff Complete 05/16/22 04:52 Total Counted 100 05/16/22 04:52 Seg Neutrophils % Mine Analyst 05/10/22 04:56 Seg Neuts % (Manual) 78.0 % (40.0-70.0) H 05/16/22 04:52 Band Neutrophils % 0 % 05/16/22 04:52 Lymphocytes % (Manual) 15.0 % (13.4-35.0) 05/16/22 04:52 Reactive Lymphs % (Man) 0 % 05/16/22 04:52 Monocytes % (Manual) 6.0 % (0.0-7.3) 05/16/22 04:52 Eosinophils % (Manual) 0 % (0.0-4.3) 05/16/22 04:52 Basophils % (Manual) 1.0 % (0.0-1.8) 05/16/22 04:52 Metamyelocytes % 0 % 05/16/22 04:52 Myelocytes % 0 % 05/16/22 04:52 Promyelocytes % 0 % 05/16/22 04:52 Blast Cells % 0 % 05/16/22 04:52 Nucleated RBC % Not Reportable 05/16/22 04:52 Seg Neutrophils # 6.7 K/mm3 (1.8-7.7) 05/06/22 04:47 Seg Neutrophils # Man 12.8 K/mm3 (1.8-7.7) H 05/16/22 04:52 Band Neutrophils # 0.0 K/mm3 05/16/22 04:52 Lymphocytes # (Manual) 2.5 K/mm3 (1.2-5.4) 05/16/22 04:52 Abs React Lymphs (Man) 0.0 K/mm3 05/16/22 04:52 Monocytes # (Manual) 1.0 K/mm3 (0.0-0.8) H 05/16/22 04:52 Eosinophils # (Manual) 0.0 K/mm3 (0.0-0.4) 05/16/22 04:52 Basophils # (Manual) 0.2 K/mm3 (0.0-0.1) H 05/16/22 04:52 Metamyelocytes # 0.0 K/mm3 05/16/22 04:52 Myelocytes # 0.0 K/mm3 05/16/22 04:52 Promyelocytes # 0.0 K/mm3 05/16/22 04:52 Blast Cells # 0.0 K/mm3 05/16/22 04:52 WBC Morphology Not Reportable 05/16/22 04:52 Hypersegmented Neuts Not Reportable 05/16/22 04:52 Hyposegmented Neuts Not Reportable 05/16/22 04:52 Hypogranular Neuts Not Reportable 05/16/22 04:52 Smudge Cells Not Reportable 05/16/22 04:52 Toxic Granulation Not Reportable 05/16/22 04:52 Toxic Vacuolation Not Reportable 05/16/22 04:52 Dohle Bodies Not Reportable 05/16/22 04:52 Pelger-Huet Anomaly Not Reportable 05/16/22 04:52 Maria Del Rosario Rods Not Reportable 05/16/22 04:52 Platelet Estimate Consistent w auto 05/16/22 04:52 Clumped Platelets Not Reportable 05/16/22 04:52 Plt Clumps, EDTA Not Reportable 05/16/22 04:52 Large Platelets Not Reportable 05/16/22 04:52 Giant Platelets Not Reportable 05/16/22 04:52 Platelet Satelliting Not Reportable 05/16/22 04:52 Plt Morphology Comment Not Reportable 05/16/22 04:52 RBC Morphology Not Reportable 05/16/22 04:52 Dimorphic RBCs Not Reportable 05/16/22 04:52 Polychromasia Not Reportable 05/16/22 04:52 Hypochromasia Not Reportable 05/16/22 04:52 Poikilocytosis Few 05/16/22 04:52 Anisocytosis Not Reportable 05/16/22 04:52 Microcytosis Not Reportable 05/16/22 04:52 Macrocytosis Not Reportable 05/16/22 04:52 Spherocytes Not Reportable 05/16/22 04:52 Pappenheimer Bodies Not Reportable 05/16/22 04:52 Sickle Cells Not Reportable 05/16/22 04:52 Target Cells Not Reportable 05/16/22 04:52 Tear Drop Cells Not Reportable 05/16/22 04:52 Ovalocytes Not Reportable 05/16/22 04:52 Stomatocytes Rare 05/10/22 04:56 Helmet Cells Not Reportable 05/16/22 04:52 Camara-Butters Bodies Not Reportable 05/16/22 04:52 [place] Rings Not Reportable 05/16/22 04:52 Miller Cells Not Reportable 05/16/22 04:52 Bite Cells Not Reportable 05/16/22 04:52 Crenated Cell Not Reportable 05/16/22 04:52 Elliptocytes Not Reportable 05/16/22 04:52 Acanthocytes (Spur) Not Reportable 05/16/22 04:52 Rouleaux Not Reportable 05/16/22 04:52 Hemoglobin C Crystals Not Reportable 05/16/22 04:52 Schistocytes Not Reportable 05/16/22 04:52 Malaria parasites Not Reportable 05/16/22 04:52 Isidro Bodies Not Reportable 05/16/22 04:52 Hem Pathologist Commnt No 05/16/22 04:52 D-Dimer 376.26 ng/mlDDU (0-234) H 04/18/22 09:00 Sodium 160 mmol/L (137-145) H 05/16/22 04:52 Potassium 5.5 mmol/L (3.6-5.0) H 05/16/22 04:52 Chloride 120.6 mmol/L (98-107) H 05/16/22 04:52 Carbon Dioxide 28 mmol/L (22-30) D 05/16/22 04:52 Anion Gap 17 mmol/L 05/16/22 04:52 BUN 126 mg/dL (9-20) H 05/16/22 04:52 Creatinine 2.6 mg/dL (0.8-1.3) H 05/16/22 04:52 Estimated GFR 24 ml/min 05/16/22 04:52 BUN/Creatinine Ratio 48 % 05/16/22 04:52 Glucose 177 mg/dL (75-100) H 05/16/22 04:52 POC Glucose 187 mg/dL (70-105) H 05/16/22 11:37 Calcium 11.0 mg/dL (8.4-10.2) H 05/16/22 04:52 Magnesium 2.60 mg/dL (1.7-2.3) H 05/16/22 04:52 Ferritin 1407.0 ng/mL (30.0-300.0) H 04/18/22 09:00 Total Bilirubin 0.30 mg/dL (0.1-1.2) 05/16/22 04:52 AST 29 units/L (5-40) 05/16/22 04:52 ALT 31 units/L (7-56) 05/16/22 04:52 Alkaline Phosphatase 126 units/L (35-129) 05/16/22 04:52 Ammonia 14.0 umol/L (25-60) L 04/30/22 14:41 Lactate Dehydrogenase 229 units/L (91-180) H 04/18/22 09:00 C-Reactive Protein 1.10 mg/dL (0.00-1.30) 04/18/22 09:00 Total Protein 5.4 g/dL (6.3-8.2) L 05/16/22 04:52 Albumin 1.3 g/dL (3.9-5) L 05/16/22 04:52 Albumin/Globulin Ratio 0.3 % 05/16/22 04:52 Valproic Acid 31.2 ug/mL (50-100) L 05/09/22 11:01 SARS-CoV-2 (PCR) Negative (Negative) 05/05/22 12:37 Kaufman/IV: Voiding Method Condom Catheter Active Medications - Current Medications Current Medications: Generic Name Dose Route Start Last Admin Trade Name Freq PRN Reason Stop Dose Admin Acetaminophen 650 mg 04/06/22 15:59 05/15/22 21:46 Acetaminophen 325 Mg Tab PO 650 mg Q4H PRN Administration Pain MILD(1-3)/Fever >100.5/MCKENZIE Albuterol 2.5 mg 04/06/22 15:59 05/08/22 16:23 Albuterol 2.5 Mg/3 Ml Nebu IH 2.5 mg Q4HRT PRN Administration Shortness Of Breath Lipase/Protease/Amylase 1 each 04/26/22 18:00 Lipase 10,500/Protease 25,000/Amylase 43,750 (Units) Dr Barrios FEEDTUBE PRN PRN For Clogged Feeding Tube Aspirin 81 mg 04/30/22 17:00 05/16/22 09:16 Aspirin 81 Mg Tab Chew PO 81 mg QDAY KATELYNN Administration Cholecalciferol 1,000 unit 04/07/22 10:00 05/16/22 09:16 Cholecalciferol (Vit D3) 1000 Unit (25 Mcg) Tab PO 1,000 unit QDAY KATELYNN Administration Clonidine HCl 0.3 mg 04/26/22 14:00 05/10/22 14:14 Clonidine Tts 0.3 Mg/24 Hr Patch TD Not Given Tu@1400 KATELYNN Fluticasone Propionate 50 mcg 04/07/22 10:00 05/16/22 09:17 Fluticasone Propionate Nasal [place] 16 Gm NS 50 mcg QDAY KATELYNN Administration Haloperidol Lactate 5 mg 04/30/22 11:29 05/03/22 22:04 Haloperidol Lactate 5 Mg/1 Ml Inj IM 5 mg Q6H PRN Administration Agitation Heparin Sodium (Porcine) 5,000 unit 04/06/22 22:00 05/16/22 09:13 Heparin 5,000 Unit/1 Ml Vial SUB-Q 5,000 unit Q12HR KATELYNN Administration Hydralazine HCl 10 mg 04/22/22 15:07 04/27/22 13:50 Hydralazine 20 Mg/1 Ml Inj IV 10 mg Q4H PRN Administration Hypertension Hydromorphone HCl 0.5 mg 04/26/22 17:59 05/02/22 10:57 Hydromorphone 0.5 Mg/0.5 Ml Inj IV 0.5 mg Q8H PRN Administration Pain , Severe (7-10) Insulin Human Lispro 0 unit 05/11/22 07:30 05/16/22 12:02 Insulin Lispro 100 Unit/Ml SUB-Q 2 unit Q6HR KATELYNN Administration Protocol Lidocaine HCl 15 ml 05/07/22 14:00 05/16/22 13:47 Magic Mouthwash 30ml PO 15 ml TID KATELYNN Administration Melatonin 5 mg 04/07/22 11:21 04/11/22 23:27 Melatonin 5 Mg Tab PO 5 mg QHS PRN Administration Sleep Mirtazapine 15 mg 04/11/22 22:00 05/15/22 21:37 Mirtazapine 15 Mg Tab PO 15 mg QHS KATELYNN Administration Ondansetron HCl 4 mg 04/06/22 15:59 Ondansetron 4 Mg/2 Ml Inj IV Q8H PRN Nausea And Vomiting Oxycodone/Acetaminophen 1 tab 04/06/22 15:59 05/13/22 11:47 Oxycodone /Acetaminophen 5-325mg Tab PO 1 tab Q16H PRN Administration Pain, Moderate (4-6) Simple Syrup 15 ml 04/26/22 18:00 Simple Syrup 15 Ml FEEDTUBE PRN PRN Hypoglycemia Simple Syrup 30 ml 04/26/22 18:00 Simple Syrup 15 Ml FEEDTUBE PRN PRN Hypoglycemia Sodium Bicarbonate 325 mg 04/26/22 18:00 Sodium Bicarbonate 325 Mg Tab FEEDTUBE PRN PRN For Clogged Feeding Tube Sodium Chloride 10 ml 04/06/22 22:00 05/16/22 09:16 Sodium Chloride 0.9% 10 Ml Flush Syringe IV 10 ml BID KATELYNN Administration Sodium Chloride 10 ml 04/06/22 15:59 04/29/22 20:05 Sodium Chloride 0.9% 10 Ml Flush Syringe IV 10 ml PRN PRN Administration LINE FLUSH Valproic Acid 500 mg 05/05/22 22:00 05/16/22 09:13 Valproic Acid 250 Mg/5 Ml Oral Liqd PO 500 mg BID KATELYNN Administration Nutrition/Malnutrition Assess - Dietary Evaluation Nutrition/Malnutrition Findings: Nutrition Notes Start: 04/07/22 15:47 Freq: Status: Active Protocol: Document 05/11/22 17:15 FARIBA (Rec: 05/11/22 17:30 FARIBA [id number]) Nutrition Notes Initial or Follow up Brief Note Current Diagnosis Diabetes,Hypertension, Malnutrition Other Pertinent Diagnosis COVID-19, Debility, Dehydration, Metabolic Encephalopathy, Dementia ... Current Diet TF-Glucerna 1.2 Joss @ 55 ml/hr (from B 05/09). Height 5 ft 2 in Weight 39.6 kg [place] Body Weight (kg) 53.63 BMI 16.0 Weight change and time frame Discrepancy of 4.1 Kg body weight loss in 2 days reported Weight Status Underweight Subjective/Other Information RD consult for routine F/U on TF tolerance/continuation. TF tolerance/continuation. TF continues as prescribed, and well tolerated, according to RN notes. RN note on 05/11/22 07:48: Pt alert and lethargic, confused, total care, venturi mask ( 15L), tolerating tube feeding - 55 ml/hr, dressing to sacrum stage 2 wound done, katelynn meds given, resting okay, barrie soft restraints, no acute distress. - END OF NOTE. Pt is on Venturi Mask+, O2 saturation @ 98%, according to Physical Assessment History notes. Percent of energy/protein needs met: Prescribed TF-Glucerna 1.2 Joss @ 55 ml/hr provides for energy/protein needs (1,285 Kcal/64 g) during LOS, 100% Kcal; 119% AA. Is patient on ventilator? No Is Patient Ambulatory and/or Out of Bed No REE-([facility]-confined to bed) 1224.924 Kcal/Kg value to use for calculation 40 Approximate Energy Requirements Using 1584 kcal/Kg Calculation Used for Recommendations Kcal/kg Additional Notes Protein: 1.2-1.5 g/Kg ABW; 52- 66 g/day. Fluids: 1 ml/Kcal, or as per MD. Nutrition Intervention Nutrition Support: Continue TF-Glucerna 1.2 Joss @ 55 ml/hr. Flush: 85 ml water Q 4 hr, or as per MD. Kcal 1,584 Protein (gm) 79 Carbohydrates (gm) 151 Fat (gm) 79 Fluid (mL) 1,063 Fiber (gm) 21 % RDI: 100% Kcal; 119% AA. Goal #1 Provide at least 75% of energy /protein needs through Enteral Feeding during LOS. Follow-Up By: 05/18/22 Additional Comments Continue monitoring TF tolerance and BM.
--- NOTE | 2022-05-16 17:05 | Progress Note ---
Assessment and Plan Assessment and plan: 76 YO Male H with Vascular Dementia with Behavioral disturbance, Cerebral Atherosclerosis, DM, BPH, HTN, Malnutrition, Coronavirus Infection. Patient remains confused, lethargic with diminished cognition. Patient remains at baseline level of cognition and function. Hospice team consulted. Case varun sharma consulted. COVID-19 positive x4 last test was negative on 05/05/2022, patient had pneumonia completed antibiotics, vascular dementia General debility. Acute kidney injury, hypernatremia, being managed symptomatically, on Dobbhoff feeds, unable to get PEG due to lack of family to give consent. Meanwhile case management is assisting with discharge planning, inpatient hospice is willing to take the patient pending authorization and approval Psych following medications being managed optimized to treat his metabolic encephalopathy. Assessment; -- COVID-19 positivex4 03/31, 04/13,04/20 and, 04/29/2022 COVID test negative on 05/05/22 s/p isolation precautions and protocols vitamin C therapy, vitamin D therapy, zinc therapy, supplemental oxygen, pulse oximetry, prophylactic anticoagulation. On dexamethasone as intermittently needed O2 Follow-up inflammatory markers, ID consulted: recommended supportive care --hypertensionadded clonidine patch --aspiration pneumonia, Completed antibiotics, symptoms resolved --Vascular dementia with behavioral disturbance Verbal prompting, verbal redirection, benzodiazepine therapy as clinically indicated. --Cerebral atherosclerosis Risk factor reduction, antiplatelet therapy, supportive care. --General debility Bed alarm, fall precautions, supportive care. Physical therapy occupational therapy -- Mild to moderate malnutrition Increase protein intake, dietary supplementation when awake and alert only. Aspiration precautions. --Nicotine dependence Smoking cessation counseled, supportive care, behavior change counseled, pulse 50 minutes. --Volume depletion/dehydration IV fluids and supportive care, increase oral fluids --Metabolic encephalopathy Multifactorial , underlying dementia , malnutrition , advanced age COVID-19 infection , psych problems Treat underlying cause and supportive care --DVT prophylaxis SCD to bilateral extremities while in bed, prophylactic anticoagulation --Advance care planning patient is full code at this time. Discussed patient care with Quynhheather Britt, . The plan is to make patient DNR and plan for [facility] with hosp[facility] care. Awaiting arrival of Ms. Britt to the hospital for family conference. According to CM no family has been reported. We will closely monitor the patient and adjust the management as needed Plan of care reviewed with the patient's nurse DC planning per case management Disposition; continue current management, DC planning per case management, no family available Possible hospice placement. Brief history and daily Hospital course: 76 YO Male PMH with Vascular Dementia with Behavioral disturbance, Cerebral Atherosclerosis, DM, BPH, HTN, Malnutrition, Coronavirus Infection. Patient remains confused, lethargic with diminished cognition. Patient remains at baseline level of cognition and function. Hospice team consulted. Case management consulted. COVID-19 positive x4 04/13/2022; patient is lethargic sleepy, restraint for safety Continue current management, psych evaluation noted and appreciated 04/14/2022; patient is more alert today trying to pull , agitated On restraints, refusing to eat, consider Dobbhoff placement for tube feeding if needed 04/15/2022; COVID-19 positive[ 03/31 and 04/13] Check inflammatory markers, ID consulted Patient is refusing medications and diet Confused and agitated, Dobbhoff placement and tube feeding per protocol 04/16/2022; patient is more alert and awake Tolerating liquids, will advance the diet as tolerated Check physical therapy occupational therapy evaluation and recommendations DC planning per case management 04/17/2022; patient is on pured diet, Will advance the diet as tolerated 04/18/2022; recommend hospice, try to call next of kin the daughter many times Unable to reach, hospice consult inpatient versus home hospice versus SNF with hospice 04/19: Patient remains on restraint and confused. He is on 2 L nasal cannula O2. We will start on dexamethasone for 10 days. We will also Low-dose of Seroquel for agitation and anxiety. Continue to follow clinically, waiting on SNF placement 04/20: Cont seroquel, restraint as needed. follow clinically. still positive for Covid, cont dexamethasone, pending placement. No family info in the file. 04/21: remains restraint, patient o RA today, does not follow commend, added clonidine path for HTN, stopped iv fluid.follow clinically. 04/22: Patient remains in restraints. Patient currently on room air with saturations at 96%. Patient remains confused and does not follow commands. Blood pressure much better controlled. Continue current regimen. Please review case management notes from 04/20. Caregiver currently unable to accept the patient at home until they find a place that can meet his needs. 04/23: Patient remains confused. Continue current regimen. Awaiting placement. 04/24: Continue dexamethasone and supplemental O2. Patient currently requiring 4 L O2 with saturations of 99%. Patient remains confused. Psychiatry recommends valproic acid, Remeron and Seroquel. Case management reports patient has not received any acceptances to long-term. Patient previously lived alone in an RV. At this time, patient is unable to live alone and caregiver is unable to care for the patient until they find a place that can meet his needs. 04/25: Continue dexamethasone and supplemental O2. Patient remains on 4 L O2 with saturations of 99%. Patient remains confused and does not follow commands. Patient still requiring restraints. Psychiatry recommends valproic acid, Remeron and Seroquel. Case management reports patient has not received any acce ptances to long-term. Patient previously lived alone in an RV. At this time, patient is unable to live alone and caregiver is unable to care for the patient until they find a place that can meet his needs. ; pending placement, continue current management Place Dobbhoff feeding tube, nutrition consult for tube feeding Monitor closely and adjust the management as needed 04/27; patient is receiving Dobbhoff feeds, check speech therapy for swallow evaluation If abnormal consider PEG placement, will try to contact family Daughter Lorenza Beauchamp To discuss the goals of treatment and discharge planning Pending long-term with hospice. Hypernatremia Free water via Dobbhoff 04/28/2022; speech evaluated the patient, patient is unable to follow swallow eval Patient needs PEG placement, however no family available to give consent Case management to assist with dressing any family, if not available will check with the ethics committee For assistance. Difficult to discharge/placement as patient has no next of kin available. 04/29/2022; crooks PCR test third time today's positive. Continue tube feeding, DC planning, no family or contact available 04/30/22; patient pulled out Dobbhoff tube last night We will replace Dobbhoff tube start feeding as tolerated Still do not have any contact with the family members 05/01/2022; continue Dobbhoff feeds, restraints for safety DC planning[difficult to place due to social/no family reasons] 05/02/2022; restraints for safety, Dobbhoff feeds, awaiting placement Multiple social issues, no family available, COVID-19 x4 05/03/2022: Remains restrained, chest x-ray last night suggestive for Infiltrate versus atelectasis. Antibiotic started for possible aspiration pneumonia. Pending placement, continue to follow 05/04/22: -- Changed antibiotic to Augmentin, continue to follow clinically, pending placement 05/05/22; Valproic level 131. Decreased Depakote 500mg po BID, cont to follow, pending placement. COVID test came is negative today. 05/06/22: Patient off isolation today, continue tube feeding. Pending placement. Patient is chronic metabolic encephalopathy with agitation requiring restraint and scheduled Haldol, 22/05 total care, tube feeding dependent, high risk for aspiration, unable to follow any commands, with extremely poor prognosis. Patient need hospice care. But no family member found to sign up for hospice. Continue to follow clinically with supportive care. 05/07/22: Continue to follow clinically with supportive care. pending placement. no family member found so far. 05/08/22; pending placement, cont supportive care. severe dementia, with 22/05 care. 05/09/22: patient on 10L o2 today, possible aspiration, repeat cxr, pending placement, no family member found so far. 05/10/2022; patient clinically no change, chest x-ray worsening infiltrates Continue supportive care oxygen titrate O2 sats to more than 90%, restraint for safety, continue tube feeding Consider hospice 05/11; discharge planning awaiting hospice evaluation . 05/12; pending hospice placement, multiple social issues No family available 05/13; patient continues to be noncommunicative, on Dobbhoff feeds Awaiting placement, social issues 05/14/clinically no change, patient is nonresponsive, sedated with psych medications Restraints for safety, Dobbhoff feeds, awaiting hospice placement 05/15; patient clinically remains same Unresponsive noncommunicative restraint for safety and agitation receiving Dobbhoff feeds Case management assisting to contact family (, assisting with hospice placement Patient is ready for discharge to hospice when hospice is willing to take the patient 05/16; hospice is evaluating the patient for possible inpatient hospice placement Case management assisting with discharge planning History Interval history: Seen and examined the patient at the bedside Patient's chart and medications reviewed Hospitalist Physical - Constitutional Vitals: Temp Pulse Resp BP Pulse Ox 98.2 F 74 16 115/62 100 05/16/22 09:31 05/16/22 09:31 05/16/22 09:31 05/16/22 09:31 05/16/22 10:10 General appearance: Present: no acute distress, cachectic, disheveled, other (Lethargic sleeping, noncommunicative) Results - Labs CBC & Chem 7: 05/16/22 04:52 05/16/22 04:52 Labs: Laboratory Last Values WBC 16.4 K/mm3 (4.5-11.0) H 05/16/22 04:52 RBC 3.79 M/mm3 (3.65-5.03) 05/16/22 04:52 Hgb 11.9 gm/dl (11.8-15.2) 05/16/22 04:52 Hct 37.5 % (35.5-45.6) 05/16/22 04:52 MCV 99 fl (84-94) H 05/16/22 04:52 MCH 31 pg (28-32) 05/16/22 04:52 MCHC 32 % (32-34) 05/16/22 04:52 RDW 14.6 % (13.2-15.2) 05/16/22 04:52 Plt Count 105 K/mm3 (140-440) L 05/16/22 04:52 Lymph % (Auto) 9.9 % (13.4-35.0) L 05/06/22 04:47 Emmons % (Auto) 13.6 % (0.0-7.3) H 05/06/22 04:47 Eos % (Auto) 0.2 % (0.0-4.3) 05/06/22 04:47 Baso % (Auto) 0.4 % (0.0-1.8) 05/06/22 04:47 Lymph # (Auto) 0.9 K/mm3 (1.2-5.4) L 05/06/22 04:47 Emmons # (Auto) 1.2 K/mm3 (0.0-0.8) H 05/06/22 04:47 Eos # (Auto) 0.0 K/mm3 (0.0-0.4) 05/06/22 04:47 Baso # (Auto) 0.0 K/mm3 (0.0-0.1) 05/06/22 04:47 Add Manual Diff Complete 05/16/22 04:52 Total Counted 100 05/16/22 04:52 Seg Neutrophils % Headline Writer 05/10/22 04:56 Seg Neuts % (Manual) 78.0 % (40.0-70.0) H 05/16/22 04:52 Band Neutrophils % 0 % 05/16/22 04:52 Lymphocytes % (Manual) 15.0 % (13.4-35.0) 05/16/22 04:52 Reactive Lymphs % (Man) 0 % 05/16/22 04:52 Monocytes % (Manual) 6.0 % (0.0-7.3) 05/16/22 04:52 Eosinophils % (Manual) 0 % (0.0-4.3) 05/16/22 04:52 Basophils % (Manual) 1.0 % (0.0-1.8) 05/16/22 04:52 Metamyelocytes % 0 % 05/16/22 04:52 Myelocytes % 0 % 05/16/22 04:52 Promyelocytes % 0 % 05/16/22 04:52 Blast Cells % 0 % 05/16/22 04:52 Nucleated RBC % Not Reportable 05/16/22 04:52 Seg Neutrophils # 6.7 K/mm3 (1.8-7.7) 05/06/22 04:47 Seg Neutrophils # Man 12.8 K/mm3 (1.8-7.7) H 05/16/22 04:52 Band Neutrophils # 0.0 K/mm3 05/16/22 04:52 Lymphocytes # (Manual) 2.5 K/mm3 (1.2-5.4) 05/16/22 04:52 Abs React Lymphs (Man) 0.0 K/mm3 05/16/22 04:52 Monocytes # (Manual) 1.0 K/mm3 (0.0-0.8) H 05/16/22 04:52 Eosinophils # (Manual) 0.0 K/mm3 (0.0-0.4) 05/16/22 04:52 Basophils # (Manual) 0.2 K/mm3 (0.0-0.1) H 05/16/22 04:52 Metamyelocytes # 0.0 K/mm3 05/16/22 04:52 Myelocytes # 0.0 K/mm3 05/16/22 04:52 Promyelocytes # 0.0 K/mm3 05/16/22 04:52 Blast Cells # 0.0 K/mm3 05/16/22 04:52 WBC Morphology Not Reportable 05/16/22 04:52 Hypersegmented Neuts Not Reportable 05/16/22 04:52 Hyposegmented Neuts Not Reportable 05/16/22 04:52 Hypogranular Neuts Not Reportable 05/16/22 04:52 Smudge Cells Not Reportable 05/16/22 04:52 Toxic Granulation Not Reportable 05/16/22 04:52 Toxic Vacuolation Not Reportable 05/16/22 04:52 Dohle Bodies Not Reportable 05/16/22 04:52 Pelger-Huet Anomaly Not Reportable 05/16/22 04:52 Maria Del Rosario Rods Not Reportable 05/16/22 04:52 Platelet Estimate Consistent w auto 05/16/22 04:52 Clumped Platelets Not Reportable 05/16/22 04:52 Plt Clumps, EDTA Not Reportable 05/16/22 04:52 Large Platelets Not Reportable 05/16/22 04:52 Giant Platelets Not Reportable 05/16/22 04:52 Platelet Satelliting Not Reportable 05/16/22 04:52 Plt Morphology Comment Not Reportable 05/16/22 04:52 RBC Morphology Not Reportable 05/16/22 04:52 Dimorphic RBCs Not Reportable 05/16/22 04:52 Polychromasia Not Reportable 05/16/22 04:52 Hypochromasia Not Reportable 05/16/22 04:52 Poikilocytosis Few 05/16/22 04:52 Anisocytosis Not Reportable 05/16/22 04:52 Microcytosis Not Reportable 05/16/22 04:52 Macrocytosis Not Reportable 05/16/22 04:52 Spherocytes Not Reportable 05/16/22 04:52 Pappenheimer Bodies Not Reportable 05/16/22 04:52 Sickle Cells Not Reportable 05/16/22 04:52 Target Cells Not Reportable 05/16/22 04:52 Tear Drop Cells Not Reportable 05/16/22 04:52 Ovalocytes Not Reportable 05/16/22 04:52 Stomatocytes Rare 05/10/22 04:56 Helmet Cells Not Reportable 05/16/22 04:52 [place] Bodies Not Reportable 05/16/22 04:52 Rena Lara Rings Not Reportable 05/16/22 04:52 [place] Cells Not Reportable 05/16/22 04:52 Bite Cells Not Reportable 05/16/22 04:52 Crenated Cell Not Reportable 05/16/22 04:52 Elliptocytes Not Reportable 05/16/22 04:52 Acanthocytes (Spur) Not Reportable 05/16/22 04:52 Rouleaux Not Reportable 05/16/22 04:52 Hemoglobin C Crystals Not Reportable 05/16/22 04:52 Schistocytes Not Reportable 05/16/22 04:52 Malaria parasites Not Reportable 05/16/22 04:52 Isidro Bodies Not Reportable 05/16/22 04:52 Hem Pathologist Commnt No 05/16/22 04:52 D-Dimer 376.26 ng/mlDDU (0-234) H 04/18/22 09:00 Sodium 160 mmol/L (137-145) H 05/16/22 04:52 Potassium 5.5 mmol/L (3.6-5.0) H 05/16/22 04:52 Chloride 120.6 mmol/L (98-107) H 05/16/22 04:52 Carbon Dioxide 28 mmol/L (22-30) D 05/16/22 04:52 Anion Gap 17 mmol/L 05/16/22 04:52 BUN 126 mg/dL (9-20) H 05/16/22 04:52 Creatinine 2.6 mg/dL (0.8-1.3) H 05/16/22 04:52 Estimated GFR 24 ml/min 05/16/22 04:52 BUN/Creatinine Ratio 48 % 05/16/22 04:52 Glucose 177 mg/dL (75-100) H 05/16/22 04:52 POC Glucose 187 mg/dL (70-105) H 05/16/22 11:37 Calcium 11.0 mg/dL (8.4-10.2) H 05/16/22 04:52 Magnesium 2.60 mg/dL (1.7-2.3) H 05/16/22 04:52 Ferritin 1407.0 ng/mL (30.0-300.0) H 04/18/22 09:00 Total Bilirubin 0.30 mg/dL (0.1-1.2) 05/16/22 04:52 AST 29 units/L (5-40) 05/16/22 04:52 ALT 31 units/L (7-56) 05/16/22 04:52 Alkaline Phosphatase 126 units/L (35-129) 05/16/22 04:52 Ammonia 14.0 umol/L (25-60) L 04/30/22 14:41 Lactate Dehydrogenase 229 units/L (91-180) H 04/18/22 09:00 C-Reactive Protein 1.10 mg/dL (0.00-1.30) 04/18/22 09:00 Total Protein 5.4 g/dL (6.3-8.2) L 05/16/22 04:52 Albumin 1.3 g/dL (3.9-5) L 05/16/22 04:52 Albumin/Globulin Ratio 0.3 % 05/16/22 04:52 Valproic Acid 31.2 ug/mL (50-100) L 05/09/22 11:01 SARS-CoV-2 (PCR) Negative (Negative) 05/05/22 12:37 Kaufman/IV: Voiding Method Condom Catheter Active Medications - Current Medications Current Medications: Generic Name Dose Route Start Last Admin Trade Name Freq PRN Reason Stop Dose Admin Acetaminophen 650 mg 04/06/22 15:59 05/15/22 21:46 Acetaminophen 325 Mg Tab PO 650 mg Q4H PRN Administration Pain MILD(1-3)/Fever >100.5/MCKENZIE Albuterol 2.5 mg 04/06/22 15:59 05/08/22 16:23 Albuterol 2.5 Mg/3 Ml Nebu IH 2.5 mg Q4HRT PRN Administration Shortness Of Breath Lipase/Protease/Amylase 1 each 04/26/22 18:00 Lipase 10,500/Protease 25,000/Amylase 43,750 (Units) Dr Barrios FEEDTUBE PRN PRN For Clogged Feeding Tube Aspirin 81 mg 04/30/22 17:00 05/16/22 09:16 Aspirin 81 Mg Tab Chew PO 81 mg QDAY KATELYNN Administration Cholecalciferol 1,000 unit 04/07/22 10:00 05/16/22 09:16 Cholecalciferol (Vit D3) 1000 Unit (25 Mcg) Tab PO 1,000 unit QDAY KATELYNN Administration Clonidine HCl 0.3 mg 04/26/22 14:00 05/10/22 14:14 Clonidine Tts 0.3 Mg/24 Hr Patch TD Not Given Tu@1400 KATELYNN Fluticasone Propionate 50 mcg 04/07/22 10:00 05/16/22 09:17 Fluticasone Propionate Nasal [place] 16 Gm NS 50 mcg QDAY KATELYNN Administration Haloperidol Lactate 5 mg 04/30/22 11:29 05/03/22 22:04 Haloperidol Lactate 5 Mg/1 Ml Inj IM 5 mg Q6H PRN Administration Agitation Heparin Sodium (Porcine) 5,000 unit 04/06/22 22:00 05/16/22 09:13 Heparin 5,000 Unit/1 Ml Vial SUB-Q 5,000 unit Q12HR KATELYNN Administration Hydralazine HCl 10 mg 04/22/22 15:07 04/27/22 13:50 Hydralazine 20 Mg/1 Ml Inj IV 10 mg Q4H PRN Administration Hypertension Hydromorphone HCl 0.5 mg 04/26/22 17:59 05/02/22 10:57 Hydromorphone 0.5 Mg/0.5 Ml Inj IV 0.5 mg Q8H PRN Administration Pain , Severe (7-10) Insulin Human Lispro 0 unit 05/11/22 07:30 05/16/22 12:02 Insulin Lispro 100 Unit/Ml SUB-Q 2 unit Q6HR KATELYNN Administration Protocol Lidocaine HCl 15 ml 05/07/22 14:00 05/16/22 13:47 Magic Mouthwash 30ml PO 15 ml TID KATELYNN Administration Melatonin 5 mg 04/07/22 11:21 04/11/22 23:27 Melatonin 5 Mg Tab PO 5 mg QHS PRN Administration Sleep Mirtazapine 15 mg 04/11/22 22:00 05/15/22 21:37 Mirtazapine 15 Mg Tab PO 15 mg QHS KATELYNN Administration Ondansetron HCl 4 mg 04/06/22 15:59 Ondansetron 4 Mg/2 Ml Inj IV Q8H PRN Nausea And Vomiting Oxycodone/Acetaminophen 1 tab 04/06/22 15:59 05/13/22 11:47 Oxycodone /Acetaminophen 5-325mg Tab PO 1 tab Q16H PRN Administration Pain, Moderate (4-6) Simple Syrup 15 ml 04/26/22 18:00 Simple Syrup 15 Ml FEEDTUBE PRN PRN Hypoglycemia Simple Syrup 30 ml 04/26/22 18:00 Simple Syrup 15 Ml FEEDTUBE PRN PRN Hypoglycemia Sodium Bicarbonate 325 mg 04/26/22 18:00 Sodium Bicarbonate 325 Mg Tab FEEDTUBE PRN PRN For Clogged Feeding Tube Sodium Chloride 10 ml 04/06/22 22:00 05/16/22 09:16 Sodium Chloride 0.9% 10 Ml Flush Syringe IV 10 ml BID KATELYNN Administration Sodium Chloride 10 ml 04/06/22 15:59 04/29/22 20:05 Sodium Chloride 0.9% 10 Ml Flush Syringe IV 10 ml PRN PRN Administration LINE FLUSH Valproic Acid 500 mg 05/05/22 22:00 05/16/22 09:13 Valproic Acid 250 Mg/5 Ml Oral Liqd PO 500 mg BID KATELYNN Administration Nutrition/Malnutrition Assess - Dietary Evaluation Nutrition/Malnutrition Findings: Nutrition Notes Start: 04/07/22 15:47 Freq: Status: Active Protocol: Document 05/11/22 17:15 FARIBA (Rec: 05/11/22 17:30 FARIBA [id number]) Nutrition Notes Initial or Follow up Brief Note Current Diagnosis Diabetes,Hypertension, Malnutrition Other Pertinent Diagnosis COVID-19, Debility, Dehydration, Metabolic Encephalopathy, Dementia ... Current Diet TF-Glucerna 1.2 Joss @ 55 ml/hr (from B 05/09). Height 5 ft 2 in Weight 39.6 kg [place] Body Weight (kg) 53.63 BMI 16.0 Weight change and time frame Discrepancy of 4.1 Kg body weight loss in 2 days reported Weight Status Underweight Subjective/Other Information RD consult for routine F/U on TF tolerance/continuation. TF tolerance/continuation. TF continues as prescribed, and well tolerated, according to RN notes. RN note on 05/11/22 07:48: Pt alert and lethargic, confused, total care, venturi mask ( 15L), tolerating tube feeding - 55 ml/hr, dressing to sacrum stage 2 wound done, katelynn meds given, resting okay, barrie soft restraints, no acute distress. - END OF NOTE. Pt is on Venturi Mask+, O2 saturation @ 98%, according to Physical Assessment History notes. Percent of energy/protein needs met: Prescribed TF-Glucerna 1.2 Joss @ 55 ml/hr provides for energy/protein needs (1,285 Kcal/64 g) during LOS, 100% Kcal; 119% AA. Is patient on ventilator? No Is Patient Ambulatory and/or Out of Bed No REE-([facility]-confined to bed) 1224.924 Kcal/Kg value to use for calculation 40 Approximate Energy Requirements Using 1584 kcal/Kg Calculation Used for Recommendations Kcal/kg Additional Notes Protein: 1.2-1.5 g/Kg ABW; 52- 66 g/day. Fluids: 1 ml/Kcal, or as per MD. Nutrition Intervention Nutrition Support: Continue TF-Glucerna 1.2 Joss @ 55 ml/hr. Flush: 85 ml water Q 4 hr, or as per MD. Kcal 1,584 Protein (gm) 79 Carbohydrates (gm) 151 Fat (gm) 79 Fluid (mL) 1,063 Fiber (gm) 21 % RDI: 100% Kcal; 119% AA. Goal #1 Provide at least 75% of energy /protein needs through Enteral Feeding during LOS. Follow-Up By: 05/18/22 Additional Comments Continue monitoring TF tolerance and BM.
[2022-05-16] MEDS: ACETAMINOPHEN 325 MG TAB PO PRN (22:58)
[2022-05-16] MEDS: MIRTAZAPINE 15 MG TAB PO SCH (22:58)
[2022-05-17] MEDS: INSULIN LISPRO 100 UNIT/ML SUB-Q SCH (06:29)
[2022-05-17 07:59] VITALS: BP 122/74
--- NOTE | 2022-05-17 09:17 | Discharge Summary ---
Providers - Providers Date of Admission: 04/06/22 19:46 Date of discharge: 05/17/22 Attending physician: DAVID GILL 04/06/22 16:02 Consult to Mental Health [CONS] Routine Reason For Exam: vascular dementia 04/15/22 14:10 Consult to Physician [CONS] Routine Comment: Consulting Provider: SADE CRAFT Physician Instructions: Reason For Exam: Positive COVID 04/15/22 16:02 Consult to Dietitian/Nutrition [CONS] Routine Physician Instructions: Assess nutrtn needs, initiate, modify, manage TF Reason For Exam: Reason for Consult: Write/Manage Tube Feeding Reason for Consult: Write/Manage Tube Feeding 04/26/22 18:00 Consult to Dietitian/Nutrition [CONS] Routine Physician Instructions: Assess nutrtn needs, initiate, modify, manage TF Reason For Exam: Reason for Consult: Write/Manage Tube Feeding Reason for Consult: Write/Manage Tube Feeding 04/27/22 07:10 Speech Therapy Evaluation and Treat [CONS] Routine Reason For Exam: Swallow eval 05/12/22 01:13 Consult to Wound/ET Nurse [CONS] Routine Reason For Exam: wound eval Primary care physician: [employer] Hospitalization Reason for admission: Dementia with behavioral disturbances/COVID-19 Pertinent studies: Multiple chest x-rays and abdominal x-rays Hospital course: 76 YO Male PMH with Vascular Dementia with Behavioral disturbance, Cerebral Atherosclerosis, DM, BPH, HTN, Malnutrition, Coronavirus Infection. Patient remains confused, lethargic with diminished cognition. Patient remains at baseline level of cognition and function. Hospice team consulted. Case management consulted. COVID-19 positive x4 last test was negative on 05/05/2022, patient had pneumonia completed antibiotics, vascular dementia General debility. Acute kidney injury, hypernatremia, being managed symptomatically, on [place] feeds, unable to get PEG due to lack of family to give consent. Meanwhile case management is assisting with discharge planning, inpatient hospice is willing to take the patient pending authorization and approval Psych following medications being managed optimized to treat his metabolic encephalopathy. Patient remains noncommunicative, on Dobbhoff feeds, no family available Case management assisted with discharge planning, and patient is now being transferred inpatient hospice. Patient is stable at discharge Discharge diagnosis -- COVID-19 positivex4 03/31, 04/13,04/20 and, 04/29/2022 COVID test negative on 05/05/22 s/p isolation precautions and protocols vitamin C therapy, vitamin D therapy, zinc therapy, supplemental oxygen, pulse oximetry, prophylactic anticoagulation. On dexamethasone as intermittently needed O2 Follow-up inflammatory markers, ID consulted: recommended supportive care --hypertensionadded clonidine patch --aspiration pneumonia, resolved Completed treatment --Vascular dementia with behavioral disturbance Verbal prompting, verbal redirection, benzodiazepine therapy as clinically indicated. --Cerebral atherosclerosis Risk factor reduction, antiplatelet therapy, supportive care. --General debility Bed alarm, fall precautions, supportive care. Physical therapy occupational therapy -- Mild to moderate malnutrition Increase protein intake, dietary supplementation when awake and alert only. Aspiration precautions. --Nicotine dependence Smoking cessation counseled, supportive care, behavior change counseled, pulse 50 minutes. --Volume depletion/dehydration/resolved IV fluids and supportive care, --Metabolic encephalopathy Multifactorial , underlying dementia , malnutrition , advanced age COVID-19 infection , psych problems Treat underlying cause and supportive care --DVT prophylaxis SCD to bilateral extremities while in bed, prophylactic anticoagulation --Advance care planning patient is full code at this time. Discussed patient care with Quynh padilla, . The plan is to make patient DNR and plan for discharge to group home facility with hospice care. Awaiting arrival of Ms. Britt to the hospital for family conference. According to CM no family has been reported. Case management assisted with discharge planning Discharge to hospice facility Stable at discharge Disposition: [facility] Final Discharge Diagnosis (Prints w/discharge instructions): History of COVID- 19/now COVID-19 test is negative. Severe metabolic encephalopathy. Cerebral a therosclerosis. Vascular dementia. Hypertension. Aspiration pneumonia resolved. General debility. Mild to moderate malnutrition. Dehydration resolved. Dementia with behavioral disturbances/resolved. Total care dependent Time spent for discharge: 35 min Core Measure Documentation - Palliative Care Palliative Care/ Comfort Measures: Hospice Care - Core Measures Any of the following diagnoses?: none Exam - Constitutional Vitals: Temp Pulse Resp BP Pulse Ox 100.2 F H 107 H 18 119/73 100 05/16/22 22:17 05/16/22 22:17 05/16/22 22:17 05/16/22 22:17 05/17/22 08:39 General appearance: Present: other (Noncommunicative) - EENT Eyes: Present: PERRL, EOM intact - Neck Neck: Present: supple, normal ROM - Respiratory Respiratory effort: normal Respiratory: bilateral: diminished, negative: rales, rhonchi, wheezing - Cardiovascular Rhythm: regular Heart Sounds: Present: S1 & S2 - Extremities Extremities: no ischemia, No edema - Abdominal General gastrointestinal: Present: soft, non-tender, non-distended - Integumentary Integumentary: Present: clear, warm - Musculoskeletal Musculoskeletal: other (Noncommunicative) - Psychiatric Psychiatric: other (Noncommunicative) - Neurologic Neurologic: other (Noncommunicative) Plan Activity: advance as tolerated, fall precautions Diet: other (Tube feeding per protocol) Additional Instructions: Fall precautions, aspiration precautions. Feeding per protocol. Rest of the management per hospice medical cost consultant Follow up with: PRIMARY CAREMD [Primary Care Provider] - 7 Days
[2022-05-17] MEDS: VALPROIC ACID 250 MG/5 ML ORAL LIQD PO SCH (09:31)
[2022-05-17] MEDS: ASPIRIN 81 MG TAB CHEW PO SCH (09:31)
[2022-05-17] MEDS: CHOLECALCIFEROL (VIT D3) 1000 UNIT (25 mcg) TAB PO SCH (09:31)
[2022-05-17] MEDS: HEPARIN 5,000 UNIT/1 ML VIAL SUB-Q SCH (17:42)
[2022-05-17] MEDS: MAGIC MOUTHWASH 30ML PO SCH (17:43)
[2022-05-17] MEDS: FLUTICASONE PROPIONATE NASAL SPRAY 16 GM NS SCH (17:43)
== END 2022-05-17 12:10 | disposition hospice, inpatient (51) | DRG 177 ==
LOC: 3A 15:50 → UNDOADMIN 15:50 → 3A 19:46
PROVIDERS: ADMIT Internal Medicine; ATTEND Internal Medicine
DX: U07.1 COVID-19 (principal); G93.41 Metabolic encephalopathy; J96.01 Acute respiratory failure with hypoxia; J69.0 Pneumonitis due to inhalation of food and vomit; Z68.1 Body mass index [BMI] 19.9 or less, adult; F01.51 Vascular dementia, unspecified severity, with behavioral disturbance; F17.213 Nicotine dependence, cigarettes, with withdrawal; E87.0 Hyperosmolality and hypernatremia; E44.0 Moderate protein-calorie malnutrition; I67.2 Cerebral atherosclerosis; Z51.5 Encounter for palliative care; E11.9 Type 2 diabetes mellitus without complications; N40.0 Benign prostatic hyperplasia without lower urinary tract symptoms; R53.81 Other malaise; E86.9 Volume depletion, unspecified; I10 Essential (primary) hypertension; Z71.6 Tobacco abuse counseling; Z91.018 Allergy to other foods; Z83.3 Family history of diabetes mellitus; Z82.49 Family history of ischemic heart disease and other diseases of the circulatory system
CPT/HCPCS: 36415; 71045; 74018; 80048; 80053; 80164; 82140; 82728; 82962; 83615; 83735; 85007; 85025; 85379; 86140; 94640; 94760; G0378; J3490; J7070; Q9967; J0360; J0696; J1170; J1630; J1644; J1815; J2060; J2920; J7030; J7040; J7050; J8540; U0003